=== PATIENT | male | born 1965 | race Two or more races ===

== ENCOUNTER 2018-01-31 16:32 | Inpatient (IN) | payer OTHER ==
--- NOTE | 2018-01-31 16:47 | PDOC ---
Rapid Medical Evaluation Chief Complaint: Wound Time Seen by Provider: 01/31/18 16:41 Medical Evaluation: Allergies Allergy/AdvReac Type Severity Reaction Status Date / Time No Known Allergies Allergy Verified 01/31/18 16:40 01/31/18 16:41 I have performed a brief in-person evaluation of this patient. Dr Hackett- sent for ER admission The patient presents with a chief complaint of: s/p right foot infections from bed ulcer, early December had wound debridement of right heel at [facility]. Pertinent physical exam findings: swelling and ulceration to right heel, I have ordered the following: CBC, CMP, Blood Culture, The patient will proceed to the ED for further evaluation.
[2018-01-31 17:29] LABS: BASO % 1.3 % (0-2.0); EOS % 1.6 % (0-4.5); HEMATOCRIT 36.7 % (35.4-49); HEMOGLOBIN 11.8 GM/dL (11.7-16.9); LYMPH % 28.3 % (8-40); MCH 29.4 pg (25.7-33.7); MEAN CELL VOLUME 91.9 fl (80-96); MEAN PLT VOLUME 8.7 fl (7.5-11.1); MONO % 11.2 % (3.8-10.2); NEUT % 57.6 % (42.8-82.8); PLATELET COUNT 159 K/MM3 (134-434); RDW 15.2 % (11.9-15.9); WHITE BLOOD COUNT 6.1 K/mm3 (4.0-10.0)
--- NOTE | 2018-01-31 17:50 | PDOC ---
History of Present Illness - General Chief Complaint: Wound Stated Complaint: PAIN Time Seen by Provider: 01/31/18 16:41 - History of Present Illness Initial Comments: 01/31/18 18:24 The patient is a 52 year old male with a history of DM, ESRD on dialysis, diabetic foot ulcers who presents for evaluation of a diabetic foot wound. The patient notes a worsening diabetic foot ulcer to his right heel over the past 6 weeks. He states that he was admitted at on outside hospital for 2 weeks for iv antibiotics and noted worsening symptoms after his discharged. He was being evaluated by our wound clinic and was referred to the ER for admission given worsening symptoms. The patient otherwise denies fevers, chills, SOB, chest pain, nausea, vomiting, abdominal pain, or changes with urination or bowel movements. Past History - Past Medical History Allergies/Adverse Reactions: Allergies Allergy/AdvReac Type Severity Reaction Status Date / Time vancomycin Allergy Verified 01/31/18 16:54 Home Medications: Ambulatory Orders NK [No Known Home Medication] 01/31/18 COPD: No Diabetes: Yes (no meds) Dialysis: Yes (ESRD) Other medical history: wheel chair bound, right foot ulcer - Immunization History Immunization Up to Date: Yes - Suicide/Smoking/Psychosocial Hx Smoking History: Never smoked Hx Alcohol Use: No Drug/Substance Use Hx: No Review of Systems - Review of Systems Comments:: 01/31/18 18:26 Constitutional: No fevers, chills, fatigue, malaise HEENT: No Rhinorrhea, nasal congestion, visual changes Cardiovascular: No chest pain, syncope, palpitations, lightheadedness Respiratory: No Cough, SOB, Hemoptysis, Gastrointestinal: No Abdominal pain, Nausea, Vomiting, Constipation, Diarrhea, Melena Genitourinary: No Dysuria, Frequency, Urgency, Hesitancy, Hematuria, Flank pain Musculoskeletal: No Myalgia, arthralgia Skin: Diabetic Foot Ulcer to the Right Heel. No rashes, itching, bruising, pallor Neurologic: No Headache, Dizziness, Numbness, Weakness, or Tingling Psychiatric: No Hallucinations. No SI or HI *Physical Exam - Vital Signs Last Vital Signs Temp Pulse Resp BP Pulse Ox 98.4 F 97 H 20 113/47 99 01/31/18 16:41 01/31/18 16:41 01/31/18 16:41 01/31/18 16:41 01/31/18 16:41 - Physical Exam Comments: 01/31/18 18:27 General Appearance: Nourished. No Apparent Distress HEENT: EOMI, JAMI. No Pharyngeal Erythema, Tonsillar Exudate, Tonsillar Erythema Neck: No Cervical Lymphadenopathy Respiratory/Chest: Lungs Clear, Normal Breath Sounds. No Crackles, Rales, Rhonchi, Wheezing Cardiovascular: Regular Rhythm, Regular Rate. No Murmur, Gallops, Rubs Gastrointestinal/Abdominal: Normal Bowel Sounds, Soft. No Guarding, Rebound, Tenderness Musculoskeletal: No CVA Tenderness Extremity: 5cm x 5cm Diabetic foot ulcer to the right heel with foul smelling purulent drainage with surround edema and tenderness to palpation. Normal Capillary Refill Integumentary: Normal Color, Dry, Warm Neurologic: Fully Oriented, Alert, Normal Mood/Affect, Normal Response, ED Treatment Course - LABORATORY CBC & Chemistry Diagram: 01/31/18 17:19 01/31/18 17:19 - ADDITIONAL ORDERS Additional order review: 01/31/18 17:19 RBC 4.00 MCV 91.9 MCHC 32.0 RDW 15.2 MPV 8.7 Neutrophils % 57.6 Lymphocytes % 28.3 Monocytes % 11.2 H Eosinophils % 1.6 Basophils % 1.3 Medical Decision Making - Medical Decision Making 01/31/18 18:29 The patient is a 52 year old male with a history of DM, ESRD on dialysis, diabetic foot ulcers who presents for evaluation of a diabetic foot wound. Differential includes but is not limited to: Osteomylitis, Infected Wound, Cellulitis, Infectious, Metabolic derangement. Given the patient's history and physical exam, we will obtain a cbc, cmp, blood cultures, ekg, plain films to evaluate further. We will consult Dr. Klein, Dr. Villalobos, Dr. Art and begin zosyn here in the ER as the patient has an allergy to vancomycin. The patient will require admission for further management of his symptoms. *DC/Admit/Observation/Transfer Diagnosis at time of Disposition: Diabetic foot ulcer Qualifiers: Diabetic foot ulcer location: heel Diabetes mellitus type: other specified ( including JADON) Laterality: right Non-pressure ulcer stage: unspecified non- pressure ulcer stage Qualified Code(s): E13.621 - Other specified diabetes mellitus with foot ulcer; L97.419 - Non-pressure chronic ulcer of right heel and midfoot with unspecified severity - Discharge Dispostion Condition at time of disposition: Stable Decision to Admit order: Yes - Referrals Referrals: Fam Villalta [Primary Care Provider] - - Patient Instructions - Post Discharge Activity
[2018-01-31 18:08] LABS: ALK PHOS 88 U/L (45-117); ANION GAP 11 (8-16); BILIRUBIN,TOTAL 0.6 mg/dL (0.2-1.0); BLOOD UREA NITROGEN 17 mg/dL (7-18); CALCIUM 7.6 mg/dL (8.5-10.1); CHLORIDE 97 mmol/L (98-107); CO2 26 mmol/L (21-32); GLUCOSE,RANDOM 74 mg/dL (74-106); POTASSIUM 3.3 mmol/L (3.5-5.1); SGPT/ALT 11 U/L (12-78); SODIUM 134 mmol/L (136-145); TOT PROT 7.1 g/dl (6.4-8.2)
[2018-01-31 18:09] LABS: CREATININE 8.4 mg/dL (0.7-1.3); SGOT/AST 12 U/L (15-37)
[2018-01-31] MEDS ORDERED: PIPERACILLIN/TAZOB 4.5 GM 4.5 GM in DEXTROSE 5%-WATER 100 ML IVPB ONE (18:28)
[2018-01-31] MEDS ORDERED: PIPERACILLIN/TAZOB 3.375 GM 3.375 GM/50 ML BAG IVPB ONE (18:37)
--- NOTE | 2018-01-31 18:58 | PDOC ---
Attending Attestation - HPI HPI: 01/31/18 18:58 The patient is a 52 year old male, with a significant PMH of diabetes mellitus, ESRD on dialysis, diabetic foot ulcers, who presents to the emergency department for evaluation of right foot wound sent in from Wound Care. The patient states he has had a worsening diabetic foot ulcer on the right heal for approx 6 weeks. The patient also states he was admitted to an outside hospital 2 weeks ago for the right foot wound and received IV antibiotics with minimal relief. The patient states he was being evaluated by Wound Care earlier today which advised the patient to come to the ED for admission. The patient denies chest pain, shortness of breath, headache and dizziness. Denies fever, chills, nausea, vomit, diarrhea and constipation. Denies dysuria, frequency, urgency and hematuria. Allergies: vancomycin Documentation prepared by John Kaur, acting as healthcare or medical for Doreen Gracia MD. <John Kaur - Last Filed: 01/31/18 18:58> - Resident Resident Name: Jason Max - ED Attending Attestation I have performed the following: I have examined & evaluated the patient, The case was reviewed & discussed with the resident, I agree w/resident's findings & plan, Exceptions are as noted - Physicial Exam PE: 01/31/18 18:55 awake alert lungs clear bilaterally heart rrr no mrg. abd soft nt nd. ext wwp . right heel ulcer foul smelling. drainage, purulene 5 x 5 cm. 2+ dp/ pt. neuro awake alert - Medical Decision Making 01/31/18 18:57 differential heel ulcer, osteo sepsis. plan labs abx xray heel cxr ekg. admit for iv antiobiotoics <Doreen Gracia - Last Filed: 01/31/18 19:11> Heart Score/ECG Review #1 General ECG Interpretation: Sinus Rhythm, Normal Rate (90), Normal Intervals, No acute ischemic changes <Doreen Gracia - Last Filed: 01/31/18 19:11>
[2018-01-31] MEDS ORDERED: CLINDAMYCIN 600MG PREMIX IVPB 600 MG/50 ML BAG IVPB ONE ×2 (19:05→19:41)
--- NOTE | 2018-01-31 19:21 | CON.ID ---
Consult - Alcohol/Substance Use Hx Alcohol Use: No - Smoking History Smoking history: Never smoked Home Medications - Allergies Allergies/Adverse Reactions: Allergies Allergy/AdvReac Type Severity Reaction Status Date / Time vancomycin Allergy Verified 01/31/18 16:54 - Home Medications Home Medications: Ambulatory Orders NK [No Known Home Medication] 01/31/18 Physical Exam Vital Signs: Vital Signs Temperature 98.4 F 01/31/18 16:41 Pulse Rate 97 H 01/31/18 16:41 Respiratory Rate 20 01/31/18 16:41 Blood Pressure 113/47 01/31/18 16:41 O2 Sat by Pulse Oximetry (%) 99 01/31/18 16:41 Labs: CBC, BMP 01/31/18 17:19 01/31/18 17:19
--- NOTE | 2018-01-31 19:56 | PN ---
Teaching Attending Note Name of Resident: Noam Linder ATTENDING PHYSICIAN STATEMENT I saw and evaluated the patient. I reviewed the resident's note and discussed the case with the resident. I agree with the resident's findings and plan as documented. SUBJECTIVE: The patient is a 52 year old man, with a significant PMH of diabetes mellitus, depression, vancomycin allergy, wheelchair dependence, ESRD on hemodialysis for 3 years, right diabetic foot ulcers, and fecal incontinence who presents to the emergency department for evaluation of right foot wound sent in from Wound Care. The patient states he has had a worsening diabetic foot ulcer on the right heal for about 6 weeks. The patient also states he was admitted to [facility] 2 weeks ago for the right foot wound and received IV antibiotics with minimal relief. The patient states he was being evaluated by Wound Care earlier today which advised the patient to come to the ED for admission. He has peeling of skin on his left foot requiring dressing. OBJECTIVE: Alert, but withdrawn and sad. Vital Signs Period Temp Pulse Resp BP Sys/Gutierrez Pulse Ox Last 24 Hr 98.4 F 97 20 113/47 99 HEENT: No Jaundice, eye redness or discharge, PERRLA, EOMI. Normocephalic, atraumatic. External ears are normal and hearing is grossly intact. No nasal discharge. Neck: Supple, nontender. No palpable adenopathy or thyromegaly. No JVD Chest: Good effort. Clear to auscultation and percussion. Heart: Regular. No S3, rub or murmur Abdomen: Not distended, soft, nontender and no HSM. No rebound or guarding. Normoactive bowel sounds. Ext: Right heel ulcer with surrounding erythema, but no tenderness. Peeling of skin on left foot. Left forearm AV fistula with good thrill and bruit. Reduced peripheral pulses. No leg edema. Skin: Warm and dry. No petechiae, rash or ecchymosis. Neuro: Alert. Oriented x3. Sad mood. No suicidal ideation. CN 2-12 grossly intact. Sensation grossly intact in all four extremities and DTR are symmetric. Home Medications Medication Instructions Recorded NK [No Known Home Medication] 01/31/18 Abnormal Lab Results 01/31/18 01/31/18 17:19 17:19 Monocytes % 11.2 H Sodium 134 L Potassium 3.3 L Chloride 97 L Creatinine 8.4 H* Calcium 7.6 L AST 12 L ALT 11 L Albumin 3.0 L ASSESSMENT AND PLAN: 1. Nonhealing diabetic right foot ulcer - Will admit as an inpatient and treat with IV clindamycin and zosyn pending wound cultures. Get MRI to rule out osteomyelitis and get PVR as well as Vascular surgery and Podiatry consults. Continue daily wound care. 2. ESRD - Continue thrice weekly hemodialysis and consult nephrology. 3. Hypokalemia - Has poor appetite. May need dietary supplements an ensure adequate dietary protein intake. 4. Depression - provide generous emotional support, restart Zoloft 50 mg po q HS and consult psychiatry. Consider bedside PT in view of wheelchair use. 5. DVT prophylaxis - Heparin 5000u sq tid 6. Advance directives - Full code
--- NOTE | 2018-01-31 20:55 | HP ---
CHIEF COMPLAINT: Worsening foot ulcer PCP: Dr. Fam Villalta (PCP) Dr. Andrea Terrazas (registered nursing professor) HISTORY OF PRESENT ILLNESS: The patient is a 52 yo m w/ PMH DM, ESRD on HD (MWF) who was sent to the ED from the wound care clinic for evaluation of a worsening foot ulcer. The patient states that over the past 6 weeks, he has had worsening right heel ulcer and right leg redness. (ulcer had been present prior to 6 weeks ago and started as a bed sore sustained during a hospitalization for depression) He was recently admitted to [facility] 6 weeks ago, where is underwent debridement of this same ulcer. He was treated with IV ABX for 2 weeks and discharged to a rehab facility for the past 3 weeks. After his discharge 6 days ago, the patient endorses worsening "discomfort and redness" in the right foot, prompting his registered nursing professor, Dr. Terrazas, to send him to the wound care clinic for evaluation. ER course was notable for: (1) Blood culture, wound culture (2) Clindamycin 600mg, Zosyn 3.375g (3) CXR wnl, foot xr showing no evidence of osteo and possible foreign body Recent Travel: none PAST MEDICAL HISTORY: Depression s/p hospitalization DM (dx @ 22 yo, not on medications) PAST SURGICAL HISTORY: Debridement of right foot ulcer 6 weeks ago Social History: Smoking: never smoker Alcohol: socially Drugs: occasional marijuana use Family History: Diabetes in patient's mother Allergies vancomycin Allergy (Verified 01/31/18 16:54) HOME MEDICATIONS: Home Medications Medication Instructions Recorded NK [No Known Home Medication] 01/31/18 REVIEW OF SYSTEMS CONSTITUTIONAL: Absent: fever, chills, diaphoresis, generalized weakness, malaise HEENT: Absent: rhinorrhea, nasal congestion, throat pain, throat swelling, difficulty swallowing, mouth swelling, ear pain, eye pain, visual changes CARDIOVASCULAR: Absent: chest pain, syncope, palpitations, irregular heart rate, lightheadedness , peripheral edema RESPIRATORY: Absent: cough, shortness of breath, dyspnea with exertion, orthopnea, wheezing, stridor, hemoptysis GASTROINTESTINAL: Absent: abdominal pain, abdominal distension, nausea, vomiting, diarrhea, constipation, melena, hematochezia GENITOURINARY: Absent: dysuria, frequency, urgency, hesitancy, hematuria, flank pain, genital pain MUSCULOSKELETAL: Absent: myalgia, arthralgia, joint swelling, back pain, neck pain SKIN: Absent: rash, itching, pallor HEMATOLOGIC/IMMUNOLOGIC: Absent: easy bleeding, easy bruising, lymphadenopathy, frequent infections ENDOCRINE: Absent: unexplained weight gain, unexplained weight loss, heat intolerance, cold intolerance NEUROLOGIC: Absent: headache, focal weakness or paresthesias, dizziness, unsteady gait, seizure, mental status changes, bladder or bowel incontinence PSYCHIATRIC: Absent: anxiety, depression, suicidal or homicidal ideation, hallucinations. PHYSICAL EXAMINATION Vital Signs - 24 hr 01/31/18 16:41 Temperature 98.4 F Pulse Rate 97 H Respiratory 20 Rate Blood Pressure 113/47 O2 Sat by Pulse 99 Oximetry (%) GENERAL: Awake, alert, and fully oriented, in no acute distress. HEAD: Normal with no signs of trauma. EYES: Pupils equal, round and reactive to light, extraocular movements intact, sclera anicteric, conjunctiva clear. No lid lag. EARS, NOSE, THROAT: oropharynx clear without exudates. Moist mucous membranes. NECK: Normal range of motion, supple without lymphadenopathy, JVD, or masses. LUNGS: Breath sounds equal, clear to auscultation bilaterally. No wheezes, and no crackles. No accessory muscle use. HEART: Regular rate and rhythm, normal S1 and S2 without murmur, rub or gallop. ABDOMEN: Soft, nontender, not distended, normoactive bowel sounds, no guarding, no rebound, no masses. No hepatomegaly or splenomegaly. MUSCULOSKELETAL: Normal range of motion at all joints. No bony deformities or tenderness. No CVA tenderness LOWER EXTREMITIES: 2+ pulses, warm, well-perfused. No calf tenderness. No peripheral edema. There is erythema and warmth over his right lower extremity. both feet are wrapped in gauze. Dressings are clean and dry. Patient refused to unwrap either of his feet for inspection. NEUROLOGICAL: Cranial nerves II-X intact. Normal speech. PSYCHIATRIC: Cooperative. Good eye contact. Appropriate mood and affect. SKIN: Warm, dry, normal turgor, no rashes or lesions noted, normal capillary refill. Laboratory Results - last 24 hr 01/31/18 01/31/18 17:19 17:19 WBC 6.1 RBC 4.00 Hgb 11.8 Hct 36.7 MCV 91.9 MCH 29.4 MCHC 32.0 RDW 15.2 Plt Count 159 MPV 8.7 Absolute Neuts (auto) 3.5 Neutrophils % 57.6 Lymphocytes % 28.3 Monocytes % 11.2 H Eosinophils % 1.6 Basophils % 1.3 Nucleated RBC % 0 Sodium 134 L Potassium 3.3 L Chloride 97 L Carbon Dioxide 26 Anion Gap 11 BUN 17 Creatinine 8.4 H* Creat Clearance w eGFR 6.78 Random Glucose 74 Calcium 7.6 L Total Bilirubin 0.6 AST 12 L ALT 11 L Alkaline Phosphatase 88 Total Protein 7.1 Albumin 3.0 L ASSESSMENT/PLAN: The patient is a 52 yo m w/ PMH DM, ESRD on HD (MWF) who was sent to the ED from the wound care clinic for evaluation of a worsening foot ulcer. #infected DM foot ulcer -s/p Clindamycin 600mg and Zosyn 4.5 g in ed -will c/w clinda 600mg IV Q8h -given patient's ESRD and high dose on zosyn given in ED, will hold off on continued doses of zosyn until the AM. -Podiatry consult -vascular surgery consult -CLAUDY/PVR to eval for PVD -MRI Rt foot r/o osteo -A1C in AM #History of depression, not on medications -was previously on zoloft, patient stopped taking it without MD instruction - psych hospital admit in the past -psych consult #dispo -admit med surg Visit type - Emergency Visit Emergency Visit: Yes ED Registration Date: 01/31/18 Care time: The patient presented to the Emergency Department on the above date and was hospitalized for further evaluation of their emergent condition. - New Patient This patient is new to me today: Yes Date on this admission: 02/01/18 - Critical Care Critical Care patient: No Hospitalist Screening - Colonoscopy Questionnaire Colonoscopy Questionnaire: Colonoscopy Questionnaire - Patient: 50 - 75 years old and never had a screening colonoscopy: Unknown History of colon or rectal polyps, or CA: Unknown History of IBD, Crohn's disease or UC: Unknown History of abdominal radiation therapy as a child: Unknown - Relative: 1 with colon or rectal CA, or polyps at age 60 or younger: Unknown Colon or rectal CA diagnosed at age 45 or younger: Unknown Multiple relatives with colon or rectal CA: Unknown - Outcome: Screening Result: Negative Screen
[2018-02-01] MEDS: HEPARIN NA (PORCINE) 5,000 UNITS/ML 1ML VIAL SQ SCH ×2 (03:20→11:28)
[2018-02-01] MEDS: CLINDAMYCIN 600MG PREMIX IVPB 600 MG/50 ML BAG IVPB SCH ×3 (03:20→17:57)
[2018-02-01 06:47] LABS: BASO % 0.3 % (0-2.0); EOS % 0.3 % (0-4.5); HEMOGLOBIN 11.9 GM/dL (11.7-16.9); LYMPH % 13.8 % (8-40); MCH 29.5 pg (25.7-33.7); MCHC 32.1 g/dl (32.0-35.9); MEAN CELL VOLUME 91.8 fl (80-96); MEAN PLT VOLUME 8.9 fl (7.5-11.1); MONO % 6.8 % (3.8-10.2); NEUT % 78.8 % (42.8-82.8); PLATELET COUNT 133 K/MM3 (134-434); RBC 4.03 M/mm3 (4.00-5.60); RDW 15.4 % (11.9-15.9); WHITE BLOOD COUNT 10.1 K/mm3 (4.0-10.0)
[2018-02-01 06:48] LABS: ALBUMIN 2.6 g/dl (3.4-5.0); ANION GAP 13 (8-16); BLOOD UREA NITROGEN 20 mg/dL (7-18); CALCIUM 7.4 mg/dL (8.5-10.1); CHLORIDE 97 mmol/L (98-107); CO2 24 mmol/L (21-32); GLUCOSE,RANDOM 68 mg/dL (74-106); PHOSPHOROUS 4.5 mg/dL (2.5-4.9); POTASSIUM 3.4 mmol/L (3.5-5.1); SGOT/AST 9 U/L (15-37); SGPT/ALT 10 U/L (12-78); SODIUM 134 mmol/L (136-145)
[2018-02-01 06:50] LABS: ALK PHOS 80 U/L (45-117); BILIRUBIN,TOTAL 0.9 mg/dL (0.2-1.0); TOT PROT 6.1 g/dl (6.4-8.2)
[2018-02-01 06:56] LABS: CREATININE 9.1 mg/dL (0.7-1.3)
[2018-02-01] MEDS: INSULIN SLIDING SCALE (NOVOLOG) 1 VIAL SQ SCH ×4 (07:06→22:25)
--- NOTE | 2018-02-01 08:44 | PN ---
Teaching Attending Note Name of Resident: Vianca Da Silva ATTENDING PHYSICIAN STATEMENT I saw and evaluated the patient. I reviewed the resident's note and discussed the case with the resident. I agree with the resident's findings and plan as documented with exceptions below. SUBJECTIVE: Patient seen and examined. feeling dizzy, no other symptoms, refusing leg exam unless by a 'leg surgeon'. OBJECTIVE: Vital Signs Period Temp Pulse Resp BP Sys/Gutierrez Pulse Ox Last 24 Hr 97.8 F-98.4 F 95-97 20-20 90-113/46-47 99 Intake & Output 01/29/18 01/30/18 01/31/18 02/01/18 23:59 23:59 23:59 23:59 Weight 182 lb General; dizzy but awake and responsive in bed Extremities: bilteral feet dressing, refusing exam currently, swelling erythema and warm mid 1/3rd LE bilateral R>L Chest: CTAB, no rales or wheezing Abdomen: soft, NT Home Medications Medication Instructions Recorded NK [No Known Home Medication] 01/31/18 Active Medications Heparin Sodium (Porcine) (Heparin -) 5,000 unit SQ Q8H-IV IRVIN Last Admin: 02/01/18 03:20 Dose: 5,000 unit Clindamycin Phosphate (Cleocin 600 Mg Premix Ivpb -) 600 mg in 50 mls @ 100 mls /hr IVPB Q8H-IV IRVIN; Protocol Last Admin: 02/01/18 03:20 Dose: 100 mls/hr Insulin Aspart (Novolog Vial Sliding Scale -) 0 vial SQ ACHS IRVIN; Protocol Last Admin: 02/01/18 07:06 Dose: Not Given Abnormal Lab Results 01/31/18 01/31/18 02/01/18 17:19 17:19 06:00 WBC 10.1 H D Plt Count 133 L Monocytes % 11.2 H Sodium 134 L Potassium 3.3 L Chloride 97 L BUN Creatinine 8.4 H* Random Glucose Calcium 7.6 L AST 12 L ALT 11 L Total Protein Albumin 3.0 L 02/01/18 06:00 WBC Plt Count Monocytes % Sodium 134 L Potassium 3.4 L Chloride 97 L BUN 20 H Creatinine 9.1 H* Random Glucose 68 L Calcium 7.4 L AST 9 L D ALT 10 L Total Protein 6.1 L Albumin 2.6 L Xray right foot - foreign body Duplex RLE neg for DVT ASSESSMENT AND PLAN: 52 yom with PMHx of diabetes mellitus, depression, vancomycin allergy, wheelchair dependence, ESRD on hemodialysis for 3 years, right diabetic foot ulcers, and fecal incontinence admitted with non healing right foot diabetic ulcer with cellulitis -Non healing right foot diabetic ulcer with cellulitis, r/o abscess/ osteomyelitis now with septic shock -ESRD on HD -Diabetes Mellitus Plan: zosyn renal dosing, clindamycin day 1, podiatry/vascular surgery/ID input noted. persistently hypotensive despite fluid challenge. Low threshold for pressors given ESRD on HD. Discussed with Dr. Gabriel, patient accepted for ICU. MRI LE when hemodynamics stable. Xray with possible foreign body. PVR. ISS,patient denies being on homd meds. Blood/wound cx. DVTPPx with heparin Dispo to ICU, plan discussed with Dr. Gabriel, Dr. Frey, Dr. Omer and nursing. total critical care time spent 35 min.
--- NOTE | 2018-02-01 09:47 | CONSULT ---
Consult - text type - Consultation Consultation Note: Pt seen in bed. VSS. Seeing for b/l wounds. Wants to save his feet at all costs. +infected wounds b/l, heels, awaiting culture results, +mal odor right, + localized cellulitis r/o om r/o pvd r/o dm Grade 2-3 wounds b/l feet Awaiting results of MRI, Culture, Vascular and ID. B/l santyl dressing changes to heels. Heel pads b/l. Will follow.
[2018-02-01] MEDS ORDERED: COLLAGENASE CLOSTRIDIUM HIST. 30 GRAMS TUBE TP SCH (10:00)
--- NOTE | 2018-02-01 10:34 | EKG ---
Test Reason : Blood Pressure : / mmHG Vent. Rate : 090 BPM Atrial Rate : 090 BPM P-R Int : 164 ms QRS Dur : 084 ms QT Int : 424 ms P-R-T Axes : 040 015 060 degrees QTc Int : 518 ms NORMAL SINUS RHYTHM SEPTAL INFARCT , AGE UNDETERMINED PROLONGED QT ABNORMAL ECG NO PREVIOUS ECGS AVAILABLE Confirmed by SOHAN CHAVARRIA MD ([id number]) on 02/01/2018 10:33:49 AM Referred By: Confirmed By:SOHAN CHAVARRIA MD
[2018-02-01] MEDS ORDERED: SODIUM CHLORIDE 250 ML IV STA ×2 (10:36→12:03)
[2018-02-01] MEDS ORDERED: PIPERACILLIN/TAZOB 2.25 GM 2.25 GM in DEXTROSE 5%-WATER - 50 ML IVPB ONE (10:39)
--- NOTE | 2018-02-01 11:46 | CONSULT ---
Consult Consult Specialty:: Nephrology Reason for Consultation:: ESRD - History of Present Illness Chief Complaint: sent in for foot ulcer History of Present Illness: Pt is a 52 year old male with pmhx of ESRD and DM who was sent to the ER for evaluation. He says he has had the right foot ulcer for about 2 months. He did get abx in an outside facility. I was called to evaluate him as he is on HD. His last dialysis was on Tuesday. He denies shortness of breath. He denies fevers or chills. He goes to [facility] HD. - History Source History Provided By: Patient, Medical Record - Past Medical History Renal/: Yes: Renal Inusuff, Hemodialysis Heme/Onc: Yes: Anemia Endocrine: Yes: Diabetes Mellitus - Past Surgical History Past Surgical History: Yes: AV Fistula/Graft - Alcohol/Substance Use Hx Alcohol Use: No - Smoking History Smoking history: Never smoked Have you smoked in the past 12 months: No Home Medications - Allergies Allergies/Adverse Reactions: Allergies Allergy/AdvReac Type Severity Reaction Status Date / Time vancomycin Allergy Verified 01/31/18 16:54 - Home Medications Home Medications: Ambulatory Orders NK [No Known Home Medication] 01/31/18 Family Disease History - Family Disease History Family History: Denies Review of Systems - Review of Systems Constitutional: reports: No Symptoms Eyes: reports: No Symptoms HENT: reports: No Symptoms Neck: reports: No Symptoms Cardiovascular: reports: No Symptoms Respiratory: reports: No Symptoms Gastrointestinal: reports: No Symptoms Genitourinary: reports: No Symptoms Musculoskeletal: reports: Other (right foot ulcer) Neurological: reports: No Symptoms Hematology/Lymphatic: reports: No Symptoms Psychiatric: reports: No Symptoms Physical Exam Vital Signs: Vital Signs Temperature 97.8 F 01/31/18 22:08 Pulse Rate 50 L 02/01/18 11:35 Respiratory Rate 16 02/01/18 08:58 Blood Pressure 77/38 02/01/18 11:35 O2 Sat by Pulse Oximetry (%) 98 02/01/18 08:58 Constitutional: Yes: Calm Eyes: Yes: Conjunctiva Clear HENT: Yes: Atraumatic Cardiovascular: Yes: S1, S2 Respiratory: Yes: CTA Bilaterally Gastrointestinal: Yes: Soft Renal/: Yes: WNL Extremities: Yes: WNL, Other (fistula with thrill and bruit) Edema: No Neurological: Yes: Oriented Psychiatric: Yes: Oriented Labs: CBC, BMP 02/01/18 06:00 02/01/18 06:00 Laboratory Tests 01/31/18 01/31/18 02/01/18 17:19 17:19 06:00 WBC 6.1 10.1 H D Sodium Potassium 3.3 L Chloride 97 L Carbon Dioxide 26 BUN Creatinine 8.4 H* 02/01/18 06:00 WBC Sodium 134 L Potassium 3.4 L Chloride 97 L Carbon Dioxide BUN 20 H Creatinine 9.1 H* Imaging - Results Chest X-ray: Report Reviewed Problem List - Problems (1) ESRD (end stage renal disease) Code(s): N18.6 - END STAGE RENAL DISEASE (2) Diabetic foot ulcer Code(s): E11.621 - TYPE 2 DIABETES MELLITUS WITH FOOT ULCER; L97.509 - NON- PRESSURE CHRONIC ULCER OTH PRT UNSP FOOT W UNSP SEVERITY Qualifiers: Diabetic foot ulcer location: heel Diabetes mellitus type: other specified (including JADON) Laterality: right Non-pressure ulcer stage: unspecified non -pressure ulcer stage Qualified Code(s): E13.621 - Other specified diabetes mellitus with foot ulcer; L97.419 - Non-pressure chronic ulcer of right heel and midfoot with unspecified severity Assessment/Plan Current Medications Generic Name Dose Route Start Last Admin Trade Name Freq PRN Reason Stop Dose Admin Collagenase 1 applic 02/01/18 10:00 Santyl - TP DAILY IRVIN Heparin Sodium (Porcine) 5,000 unit 02/01/18 02:00 02/01/18 11:28 Heparin - SQ 5,000 unit Q8H-IV IRVIN Administration Clindamycin Phosphate 600 mg in 50 mls @ 100 mls/hr 02/01/18 03:00 02/01/18 11:28 Cleocin 600 Mg Premix Ivpb - IVPB 100 mls/hr Q8H-IV IRVIN Administration Protocol Insulin Aspart 0 vial 02/01/18 07:00 02/01/18 11:40 Novolog Vial Sliding Scale - SQ Not Given ACHS IRVIN Protocol Impression 1. ESRD 2. anemia 3. DFU 4. DM Plan - called HD unit, [place] [phone] - HD AVF 4:15 abf 450 heparin 6000 with 1000 q hour, 2 k bath - will arrange for HD today, unable to do 4 hrs secondary to staffing, will arrange for 3 hours - will use 3 k bath as potassium is low, I did relay the K value to his unit - podiatry follow up - ID follow up - pt does not appears to have much volume on him - pt has a dry weight of 102.5 kg in hd center however he is 82.7 kg here - wound care - will follow Dr Frey
[2018-02-01] MEDS ORDERED: SODIUM CHLORIDE 250 ML IV PRN (11:52)
[2018-02-01] MEDS ORDERED: HEPARIN NA (PORCINE) 5,000 UNITS/ML 1ML VIAL IVPUSH ONE ×2 (11:52→16:14)
[2018-02-01] MEDS ORDERED: DEXTROSE 5%-WATER - 50 ML IVPB ONE (11:54)
[2018-02-01] MEDS ORDERED: PIPERACILLIN/TAZOBACTAM 2.25 GM VIAL IVPB ONE (11:54)
[2018-02-01] MEDS ORDERED: SODIUM CHLORIDE 500 ML IV STA (12:07)
--- NOTE | 2018-02-01 12:22 | PN ---
Progress Note (short form) - Note Progress Note: VASCULAR SURGERY - Ki Villalobos Called to evaluate 52 yo male admitted with bilat heel infection and rle cellulitis. Podiarty Consult note appreciated. Pmhc includes ESRD, DM, peripheral neuropathy. Resting in position of comfort. Last Vital Signs Temp Pulse Resp BP Pulse Ox 97.8 F 50 L 16 77/38 98 01/31/18 22:08 02/01/18 11:35 02/01/18 08:58 02/01/18 11:35 02/01/18 08:58 CBC, BMP 02/01/18 06:00 02/01/18 06:00 Foot xray: no evidence of OM. ? foreign body near calcaneous GEN: nad LE: bilat heels infected. + foul odor. NO discharge. No bogginess or induration. Localized erythema/cellulitis. + palpable DP/PT bilat. Warm bilat. No rest pain. Problem List - Problems (1) Diabetic foot ulcer Assessment/Plan: Patient's wounds are currently being managed by Podiatry. No evidence of vascular disease. No Vascular intervention needed. f/u MRI f/u wound culture Offload pressure sensitive areas Cont medical management Above discussed with Dr. Villalobos and agrees HD PRN Code(s): E11.621 - TYPE 2 DIABETES MELLITUS WITH FOOT ULCER; L97.509 - NON- PRESSURE CHRONIC ULCER OTH PRT UNSP FOOT W UNSP SEVERITY Qualifiers: Diabetic foot ulcer location: heel Diabetes mellitus type: other specified (including JADON) Laterality: right Non-pressure ulcer stage: unspecified non -pressure ulcer stage Qualified Code(s): E13.621 - Other specified diabetes mellitus with foot ulcer; L97.419 - Non-pressure chronic ulcer of right heel and midfoot with unspecified severity (2) ESRD (end stage renal disease) Code(s): N18.6 - END STAGE RENAL DISEASE
--- NOTE | 2018-02-01 14:12 | HOSP ---
Subjective - Review of Symptoms Events since last encounter: Informed by RN during round that patient was hypotensive in the low 60s/30s. Pt c/o dizziness. Repeated BP manually confirmed the BP range. Gave 250ml bolus, repeat BP 77/38, 15 mins later repeat 69/34, gave another 500cc bolus and repeat BP was 69/40, HR 98, Sat 98%. Discussed with attending and nephrology, will transfer the patient to ICU due to unresponsiveness to fluid resuscitation , suspecting 2/2 septic shock. Musculoskeletal: Yes: Extremity Pain Neurological: Yes: Other (dizziness) Physical Examination Vital Signs: Vital Signs Temperature 97.8 F 01/31/18 22:08 Pulse Rate 97 H 02/01/18 12:31 Respiratory Rate 16 02/01/18 12:31 Blood Pressure 82/40 02/01/18 12:31 O2 Sat by Pulse Oximetry (%) 98 02/01/18 08:58 Constitutional: Yes: Calm, Other (in trend position) Cardiovascular: Yes: Tachycardia, S1, S2 Respiratory: Yes: Regular, CTA Bilaterally Extremities: Yes: Other (refused extremity exam) Neurological: Yes: Other (dizziess) Labs: CBC, BMP 02/01/18 06:00 02/01/18 06:00 Visit type - Emergency Visit Emergency Visit: No - New Patient This patient is new to me today: Yes Date on this admission: 02/01/18 - Critical Care Critical Care patient: No
[2018-02-01] MEDS: ACETAMINOPHEN 1000 MG/100 ML VIAL (NON FORMULARY) IVPB PRN (16:28)
[2018-02-01] MEDS ORDERED: SODIUM CHLORIDE 1,000 ML IV STA (16:32)
--- NOTE | 2018-02-01 17:00 | PN ---
Physical Exam: SUBJECTIVE: Patient seen and examined. Admitted overnight with diabetic foot, has not been on medication because he thinks he no longer has diabetes, although he reports diabetic neuropathy on both LE and has ESRD likely secondary to DM. Pt refused to have feet examined. Pt had been admitted for psychiatric symptoms in recent past. says he has been wheelchair bound for up to 3 years. OBJECTIVE: Vital Signs Period Temp Pulse Resp BP Sys/Gutierrez Pulse Ox Last 24 Hr 97.8 F-97.8 F 50-97 16-20 69-90/38-46 94-98 Vital Signs Temp 100.2 F H 02/01/18 20:00 Pulse 98 H 02/01/18 20:00 Resp 16 02/01/18 20:00 BP 130/65 02/01/18 20:00 Pulse Ox 98 02/01/18 08:58 Intake & Output 01/31/18 02/01/18 02/01/18 23:59 11:59 23:59 Intake Total 1300 Balance 1300 Weight 82.554 kg 104.5 kg Intake: IV 1000 Normal Saline - 1,000 ml 1000 @ 1000 mls/hr IV ASDIR STA Rx#:[id number] IVPB 300 Other: Voiding Method Diaper Incontinent Bowel Movement Yes: Large soft # Bowel Movements 1 Height 1.88 m Body Mass Index (BMI) 23.3 Weight Measurement Method Stated by Patient Built in [facility] Weight Measurement Method Est/Stated by Patient GENERAL: The patient is awake, alert, and fully oriented, sating well on RA LUNGS: Breath sounds equal, clear to auscultation bilaterally HEART: Regular rate and rhythm, S1, S2 without murmur. ABDOMEN: Soft, nontender, nondistended, normoactive bowel sounds EXTREMITIES: Pt declined examination of feet, including removal of socks. Bilateral feet in antiskid socks, with bilateral dressing R foot appears greater than L NEUROLOGICAL: Cranial nerves II through XII grossly intact. Normal speech, gait not observed. Laboratory Results - last 24 hr 01/31/18 01/31/18 01/31/18 17:19 17:19 23:47 WBC 6.1 RBC 4.00 Hgb 11.8 Hct 36.7 MCV 91.9 MCH 29.4 MCHC 32.0 RDW 15.2 Plt Count 159 MPV 8.7 Absolute Neuts (auto) 3.5 Neutrophils % 57.6 Lymphocytes % 28.3 Monocytes % 11.2 H Eosinophils % 1.6 Basophils % 1.3 Nucleated RBC % 0 Sodium 134 L Potassium 3.3 L Chloride 97 L Carbon Dioxide 26 Anion Gap 11 BUN 17 Creatinine 8.4 H* Creat Clearance w eGFR 6.78 POC Glucometer 74 Random Glucose 74 Hemoglobin A1c % Calcium 7.6 L Phosphorus Magnesium Total Bilirubin 0.6 AST 12 L ALT 11 L Alkaline Phosphatase 88 Total Protein 7.1 Albumin 3.0 L 02/01/18 02/01/18 02/01/18 06:00 06:00 06:00 WBC 10.1 H D RBC 4.03 Hgb 11.9 Hct 37.0 MCV 91.8 MCH 29.5 MCHC 32.1 RDW 15.4 Plt Count 133 L MPV 8.9 Absolute Neuts (auto) 7.9 Neutrophils % 78.8 D Lymphocytes % 13.8 D Monocytes % 6.8 Eosinophils % 0.3 D Basophils % 0.3 Nucleated RBC % 0 Sodium 134 L Potassium 3.4 L Chloride 97 L Carbon Dioxide 24 Anion Gap 13 BUN 20 H Creatinine 9.1 H* Creat Clearance w eGFR 6.19 POC Glucometer Random Glucose 68 L Hemoglobin A1c % 4.1 L Calcium 7.4 L Phosphorus 4.5 Magnesium 2.0 Total Bilirubin 0.9 D AST 9 L D ALT 10 L Alkaline Phosphatase 80 Total Protein 6.1 L Albumin 2.6 L 02/01/18 11:39 WBC RBC Hgb Hct MCV MCH MCHC RDW Plt Count MPV Absolute Neuts (auto) Neutrophils % Lymphocytes % Monocytes % Eosinophils % Basophils % Nucleated RBC % Sodium Potassium Chloride Carbon Dioxide Anion Gap BUN Creatinine Creat Clearance w eGFR POC Glucometer 116 Random Glucose Hemoglobin A1c % Calcium Phosphorus Magnesium Total Bilirubin AST ALT Alkaline Phosphatase Total Protein Albumin Active Medications Generic Name Dose Route Start Last Admin Trade Name Freq PRN Reason Stop Dose Admin Acetaminophen 1,000 mg 02/01/18 15:59 02/01/18 16:28 Ofirmev Injection - IVPB 1,000 mg Q6H PRN Administration FEVER Chlorhexidine Gluconate 1 applic 02/01/18 22:00 Hibiclens For Decolonization - TP HS IRVIN Collagenase 1 applic 02/02/18 10:00 Santyl - TP DAILY IRVIN Clindamycin Phosphate 600 mg in 50 mls @ 100 mls/hr 02/01/18 18:00 Cleocin 600 Mg Premix Ivpb - IVPB Q8H-IV IRVIN Protocol Sodium Chloride 1,000 mls @ 1,000 mls/hr 02/01/18 16:32 Normal Saline - IV 02/01/18 17:31 ASDIR STA Insulin Aspart 1 vial 02/01/18 16:30 Novolog Vial Sliding Scale - SQ ACHS [facility] Protocol Mupirocin 1 applic 02/01/18 22:00 Bactroban Ointment (For Decolonization) - NS 02/06/18 21:59 BID IRVIN Current Medications Acetaminophen (Ofirmev Injection -) 1,000 mg IVPB Q6H PRN PRN Reason: FEVER Last Admin: 02/01/18 16:28 Dose: 1,000 mg Chlorhexidine Gluconate (Hibiclens For Decolonization -) 1 applic TP HS IRVIN Collagenase (Santyl -) 1 applic TP DAILY IRVIN Clindamycin Phosphate (Cleocin 600 Mg Premix Ivpb -) 600 mg in 50 mls @ 100 mls /hr IVPB Q8H-IV IRVIN; Protocol Last Admin: 02/01/18 17:57 Dose: 100 mls/hr Meropenem 500 mg/ Dextrose 100 mls @ 200 mls/hr IVPB Q12H IRVIN Last Admin: 02/01/18 18:47 Dose: 200 mls/hr Norepinephrine Bitartrate 8, (000 mcg/ Dextrose) 500 mls @ 18.75 mls/hr IV TITR IRVIN; Protocol Last Admin: 02/01/18 19:00 Dose: 5 mcg/min, 18.75 mls/hr Insulin Aspart (Novolog Vial Sliding Scale -) 1 vial SQ ACHS [facility]; Protocol Last Admin: 02/01/18 18:00 Dose: 2 units Mupirocin (Bactroban Ointment (For Decolonization) -) 1 applic NS BID IRVIN Stop: 02/06/18 21:59 ASSESSMENT/PLAN: The patient is a 52 yo m w/ PMH DM (non compliant), psychiatric illness requiring admission, ESRD on HD (MWF) who was sent to the ED from the wound care clinic for evaluation of a worsening foot ulcer. #infected DM foot ulcer -s/p Clindamycin 600mg and Zosyn 4.5 g in ed -will c/w clinda 600mg IV Q8h -ID consult- Dr Klein-Meropenem added -Pt reported to have reacted to Vancomycin with redness and generalized skin sloughing -likely TEN. -Podiatry consult- Sent by Dr Terrazas -vascular surgery consult- Dr Villalobos-appreciate recs -MRI Rt foot r/o osteo- will do MRI when more hemodynamically stable -Iv tylenol for pain #Septic shock Pt noted to be increasingly hypotensive despite boluses of N/saline Dialysis was held of Pt was transferred to ICU and started on levophed #DM -A1C -ISS -BGM #History of depression, not on medications -was previously on zoloft, patient stopped taking it without MD instruction -Hx psych hospital admit in the past -psych consult- Dr Aleman #dispo -Continue ICU mx Visit type - Emergency Visit Emergency Visit: Yes ED Registration Date: 01/31/18 Care time: The patient presented to the Emergency Department on the above date and was hospitalized for further evaluation of their emergent condition. - New Patient This patient is new to me today: Yes Date on this admission: 02/01/18 - Critical Care Critical Care patient: Yes Total Critical Care Time (in minutes): 45 Critical Care Statement: The care of this patient involved high complexity decision making to prevent further life threatening deterioration of the patient 's condition and/or to evaluate & treat vital organ system(s) failure or risk of failure. - Discharge Referral Referred to [facility] No
--- NOTE | 2018-02-01 17:00 | CON.PSY ---
Psychiatry Consult Chief Complaint: Patient seen for DEpression. spoke to mD, patient is septic and Hypotensive. - Previous Psychiatric Treatment Outpatient: None Inpatient: None - Previous Substance Abuse Treatment Outpatient: None Inpatient: None - Current Medications Current Medications: Active Medications Acetaminophen (Ofirmev Injection -) 1,000 mg IVPB Q6H PRN PRN Reason: FEVER Last Admin: 02/01/18 16:28 Dose: 1,000 mg Chlorhexidine Gluconate (Hibiclens For Decolonization -) 1 applic TP HS IRVIN Collagenase (Santyl -) 1 applic TP DAILY IRVIN Clindamycin Phosphate (Cleocin 600 Mg Premix Ivpb -) 600 mg in 50 mls @ 100 mls /hr IVPB Q8H-IV IRVIN; Protocol Sodium Chloride (Normal Saline -) 1,000 mls @ 1,000 mls/hr IV ASDIR STA Stop: 02/01/18 17:31 Insulin Aspart (Novolog Vial Sliding Scale -) 1 vial SQ ACHS IRVIN; Protocol Mupirocin (Bactroban Ointment (For Decolonization) -) 1 applic NS BID IRVIN Stop: 02/06/18 21:59 - Allergies Allergies: Allergies Allergy/AdvReac Type Severity Reaction Status Date / Time vancomycin Allergy Verified 01/31/18 16:54 - Current Living Status Usual Living Arrangement: With Significant Other - Current Mental Status Evaluation Appearance: Well Groomed Attitude: Cooperative - Affect Affect: Constrictive Appropriateness: Appropriate to Content - Mood Mood: Euthymic - Speech/Language Expressive: Coherent - Psychomotor Activity Psychomotor Activity: Slowed - Thought Process Thought Process: Intact - Thought Content Hallucinations: Absent Delusions: Absent - Self Perception Self Perception: No Impairment - Cognition Attention: Alert Orientation: Time Memory, Immediate Recall: Intact Memory, Short Term: 3/3 Memory, Remote with Promptin/3 - Concentration Serial Sevens Intact: No Simple Calculations Intact: No - Abstraction Proverb Interpretation: Intact Judgement: Minimally Impaired - Insight Insight: Intact - Impulse Control Impulse Control: Minimally Impaired - Suicidal Ideation Suicidal Ideation: No - Homicidal Ideation Homicidal Ideation: No Assessment/Plan 1) [patient is in acute Sepsis and Hypotensive at this time. will not initiate any psych meds at this time.
--- NOTE | 2018-02-01 17:39 | CON.ID ---
Consult Consult Specialty:: infectious diseases Reason for Consultation:: bilateral cellulitis of the leg - History of Present Illness Chief Complaint: swelling and pain in the legs History of Present Illness: 52 year old male with a history of DM, ESRD on dialysis, diabetic foot ulcers who came to the hospital and was admitted for further treatment of diabetic foot wounds. . The patient notes a worsening diabetic foot ulcer to his right heel over the past 6 weeks. He states that he was admitted at on outside hospital for 2 weeks for iv antibiotics and noted worsening symptoms after his discharged. He was being evaluated by our wound clinic and was referred to the ER for admission given worsening symptoms. The patient otherwise denies fevers, chills , SOB, chest pain, nausea, vomiting, abdominal pain, or changes with urination or bowel movements. patient received clinda and zosyn on admission it seems patient was stable but then turn septic and is currently in icu with fever and hypotensive episodes patient is a dialysis patient currently patient is cold and hypotensive he is refusing for his dressing to be removed and the wound to be looked at this point - History Source History Provided By: Patient, Medical Record Limitations to Obtaining History: Clinical Condition - Past Medical History Renal/: Yes: Renal Inusuff, Hemodialysis Endocrine: Yes: Diabetes Mellitus - Past Surgical History Past Surgical History: Yes: AV Fistula/Graft - Alcohol/Substance Use Hx Alcohol Use: No - Smoking History Smoking history: Never smoked Have you smoked in the past 12 months: No - Social History Usual Living Arrangement: With Significant Other Home Medications - Allergies Allergies/Adverse Reactions: Allergies Allergy/AdvReac Type Severity Reaction Status Date / Time vancomycin Allergy Verified 01/31/18 16:54 - Home Medications Home Medications: Ambulatory Orders NK [No Known Home Medication] 01/31/18 Review of Systems - Review of Systems Constitutional: reports: Fever Eyes: reports: No Symptoms HENT: reports: No Symptoms Neck: reports: No Symptoms Cardiovascular: reports: No Symptoms Respiratory: reports: No Symptoms Gastrointestinal: reports: No Symptoms Genitourinary: reports: No Symptoms Musculoskeletal: reports: Other Integumentary: reports: Erythema, Wound, Other Neurological: reports: No Symptoms Endocrine: reports: No Symptoms Hematology/Lymphatic: reports: No Symptoms Psychiatric: reports: No Symptoms Physical Exam Vital Signs: Vital Signs Temperature 101 F H 02/01/18 17:00 Pulse Rate 91 H 02/01/18 17:00 Respiratory Rate 15 02/01/18 17:00 Blood Pressure 71/50 02/01/18 17:00 O2 Sat by Pulse Oximetry (%) 98 02/01/18 08:58 Constitutional: Yes: Moderate Distress, Obese Eyes: Yes: Conjunctiva Clear HENT: Yes: Atraumatic Neck: Yes: Supple Cardiovascular: Yes: Regular Rate and Rhythm, Other (hypotensive) Respiratory: Yes: Regular, Poor Air Entry Gastrointestinal: Yes: Normal Bowel Sounds, Soft Musculoskeletal: Yes: Other Extremities: Yes: Other Integumentary: Yes: Erythema (bilateral lower legs) Wound/Incision: Yes: Dressing Dry and Intact Neurological: Yes: Alert, Oriented Psychiatric: Yes: Alert, Oriented Labs: CBC, BMP 02/01/18 06:00 02/01/18 06:00 Imaging - Results Chest X-ray: Report Reviewed, Image Reviewed X-ray: Report Reviewed, Image Reviewed Assessment/Plan this patient with non healing diabetic ulcer of the foot in icu with sepsis i am worried he is going towards septic shock patient refusing to alow the wounds to be seen septic shock wound infections fever dm hypotensive plan will start patient on meropenam continue clinda iv fluids patient will need portably pressors rest continue as per icu patient is critical close watch cc time 45 min
--- NOTE | 2018-02-01 17:55 | PN ---
Progress Note (short form) - Note Progress Note: Vascular surgery Pt seen and examined. Left heel unstable ulcer. 3x3 eschar. Right heel wound -- stage 3 with granulation tissue with drainage. Sacral ulcer stage 3 - clean, pink, with depth. Please start santyl to all wounds. Podiatry on case for possible debridments. Pt has bl palpable DP pulses Cont IV antibiotics Ki huerta DO
[2018-02-01] MEDS ORDERED: NOREPINEPHRINE BITARTRATE 4 MG/4 ML ML IV ONE (18:37)
[2018-02-01] MEDS: MEROPENEM 500 MG in DEXTROSE 5%-WATER 100 ML IVPB SCH (18:47)
[2018-02-01] MEDS: NOREPINEPHRINE BITARTRATE 8,000 MCG in DEXTROSE 5%-WATER - 492 ML IV SCH (19:00)
--- NOTE | 2018-02-01 19:05 | PROC ---
Central Line Insertion Indication: Sepsis, Vasopressor Risks and Benefits Explained: Yes Consent on Chart: Yes Central Line: Triple Lumen Catheter Anesthesia: 1% Lidocaine Sterile Technique: Yes Ultrasound Guided Assistance: Yes Position: Right Femoral Post Insertion: Yes: Chest X-Ray Ordered Sterile Dressing Applied: Yes
--- NOTE | 2018-02-01 21:19 | CONSULT ---
Consult Consult Specialty:: Pulm/CCM Reason for Consultation:: Sepsis - History of Present Illness History of Present Illness: 52 yom with PMHx of DM, ESRD on iHD, diabetic foot ulcers with recent hospitalization for infected Lt foot ulcer who prented to ED from wound clinic with signs of worsening infection. He was started on empiric zosyn and transferred to the floor for management. Seen by ID consult. On the floor he became hypotensive with BP 60-70's/40-50 refractory to 1L fluid bolus. He was transferred to ICU for management of sepsis/septic shock. In ICU central line placed in Rt fem. Levo started 5mcg/min for MAP>60. Pt remained A+Ox3 and conversant. C/o generalized skin burning m/l d/t zosyn, switch to meropenem and clindamycin. - History Source History Provided By: Medical Record - Past Medical History Renal/: Yes: Renal Inusuff, Hemodialysis Endocrine: Yes: Diabetes Mellitus - Past Surgical History Past Surgical History: Yes: AV Fistula/Graft - Alcohol/Substance Use Hx Alcohol Use: No - Smoking History Smoking history: Never smoked Have you smoked in the past 12 months: No - Social History Usual Living Arrangement: With Significant Other Home Medications - Allergies Allergies/Adverse Reactions: Allergies Allergy/AdvReac Type Severity Reaction Status Date / Time vancomycin Allergy Verified 01/31/18 16:54 - Home Medications Home Medications: Ambulatory Orders NK [No Known Home Medication] 01/31/18 Review of Systems - Review of Systems Eyes: reports: No Symptoms Neck: reports: No Symptoms Cardiovascular: reports: No Symptoms Respiratory: reports: No Symptoms Gastrointestinal: reports: No Symptoms Genitourinary: reports: No Symptoms Integumentary: reports: Erythema Neurological: reports: Parasthesia, Weakness Hematology/Lymphatic: reports: No Symptoms Psychiatric: reports: No Symptoms Physical Exam Vital Signs: Vital Signs Temperature 100.2 F H 02/01/18 20:00 Pulse Rate 98 H 02/01/18 20:00 Respiratory Rate 16 02/01/18 20:00 Blood Pressure 130/65 02/01/18 20:00 O2 Sat by Pulse Oximetry (%) 98 02/01/18 20:31 Constitutional: Yes: Well Nourished, No Distress, Calm, Obese Eyes: Yes: WNL HENT: Yes: Atraumatic, Normocephalic Neck: Yes: Supple, Trachea Midline Cardiovascular: Yes: Regular Rate and Rhythm, Tachycardia, S1, S2 Respiratory: Yes: CTA Bilaterally Gastrointestinal: Yes: Soft, Abdomen, Obese Extremities: Yes: Cool Edema: No Peripheral Pulses WNL: Yes Integumentary: Yes: Erythema Wound/Incision: Yes: Other (Dressing intact, pale wound bed. small amt purulent drainage) Neurological: Yes: Paresthesia, Other (peripheral neuropathy) ...Motor Strength: LUE, LLE (weakness) Psychiatric: Yes: WNL Labs: CBC, BMP 02/01/18 06:00 02/01/18 06:00 CBC,CMP WBC 10.1 K/mm3 (4.0-10.0) H D 02/01/18 06:00 RBC 4.03 M/mm3 (4.00-5.60) 02/01/18 06:00 Hgb 11.9 GM/dL (11.7-16.9) 02/01/18 06:00 Hct 37.0 % (35.4-49) 02/01/18 06:00 MCV 91.8 fl (80-96) 02/01/18 06:00 MCH 29.5 pg (25.7-33.7) 02/01/18 06:00 MCHC 32.1 g/dl (32.0-35.9) 02/01/18 06:00 RDW 15.4 % (11.9-15.9) 02/01/18 06:00 Plt Count 133 K/MM3 (134-434) L 02/01/18 06:00 MPV 8.9 fl (7.5-11.1) 02/01/18 06:00 Absolute Neuts (auto) 7.9 # 02/01/18 06:00 Neutrophils % 78.8 % (42.8-82.8) D 02/01/18 06:00 Lymphocytes % 13.8 % (8-40) D 02/01/18 06:00 Monocytes % 6.8 % (3.8-10.2) 02/01/18 06:00 Eosinophils % 0.3 % (0-4.5) D 02/01/18 06:00 Basophils % 0.3 % (0-2.0) 02/01/18 06:00 Nucleated RBC % 0 % (0-0) 02/01/18 06:00 Sodium 134 mmol/L (136-145) L 02/01/18 06:00 Potassium 3.4 mmol/L (3.5-5.1) L 02/01/18 06:00 Chloride 97 mmol/L (98-107) L 02/01/18 06:00 Carbon Dioxide 24 mmol/L (21-32) 02/01/18 06:00 Anion Gap 13 (8-16) 02/01/18 06:00 BUN 20 mg/dL (7-18) H 02/01/18 06:00 Creatinine 9.1 mg/dL (0.7-1.3) H* 02/01/18 06:00 Creat Clearance w eGFR 6.19 (>60) 02/01/18 06:00 POC Glucometer 116 UNITS (80-120) 02/01/18 11:39 Random Glucose 68 mg/dL (74-106) L 02/01/18 06:00 Hemoglobin A1c % 4.1 % (4.8-6.0) L 02/01/18 06:00 Calcium 7.4 mg/dL (8.5-10.1) L 02/01/18 06:00 Phosphorus 4.5 mg/dL (2.5-4.9) 02/01/18 06:00 Magnesium 2.0 mg/dL (1.8-2.4) 02/01/18 06:00 Total Bilirubin 0.9 mg/dL (0.2-1.0) D 02/01/18 06:00 AST 9 U/L (15-37) L D 02/01/18 06:00 ALT 10 U/L (12-78) L 02/01/18 06:00 Alkaline Phosphatase 80 U/L (45-117) 02/01/18 06:00 Total Protein 6.1 g/dl (6.4-8.2) L 02/01/18 06:00 Albumin 2.6 g/dl (3.4-5.0) L 02/01/18 06:00 Current Medications Acetaminophen (Ofirmev Injection -) 1,000 mg IVPB Q6H PRN PRN Reason: FEVER Last Admin: 02/01/18 16:28 Dose: 1,000 mg Chlorhexidine Gluconate (Hibiclens For Decolonization -) 1 applic TP HS IRVIN Last Admin: 02/01/18 22:25 Dose: 1 applic Collagenase (Santyl -) 1 applic TP DAILY IRVIN Clindamycin Phosphate (Cleocin 600 Mg Premix Ivpb -) 600 mg in 50 mls @ 100 mls /hr IVPB Q8H-IV IRVIN; Protocol Last Admin: 02/01/18 17:57 Dose: 100 mls/hr Meropenem 500 mg/ Dextrose 100 mls @ 200 mls/hr IVPB Q12H IRVIN Last Admin: 02/01/18 18:47 Dose: 200 mls/hr Norepinephrine Bitartrate 8, (000 mcg/ Dextrose) 500 mls @ 18.75 mls/hr IV TITR IRVIN; Protocol Last Admin: 02/01/18 19:00 Dose: 5 mcg/min, 18.75 mls/hr Insulin Aspart (Novolog Vial Sliding Scale -) 1 vial SQ ACHS IRVIN; Protocol Last Admin: 02/01/18 22:25 Dose: 2 units Mupirocin (Bactroban Ointment (For Decolonization) -) 1 applic NS BID IRVIN Stop: 02/06/18 21:59 Last Admin: 02/01/18 22:26 Dose: 1 applic Problem List - Problems (1) Hypotension Code(s): I95.9 - HYPOTENSION, UNSPECIFIED (2) Diabetic foot ulcer Code(s): E11.621 - TYPE 2 DIABETES MELLITUS WITH FOOT ULCER; L97.509 - NON- PRESSURE CHRONIC ULCER OTH PRT UNSP FOOT W UNSP SEVERITY Qualifiers: Diabetic foot ulcer location: heel Diabetes mellitus type: other specified (including JADON) Laterality: right Non-pressure ulcer stage: unspecified non -pressure ulcer stage Qualified Code(s): E13.621 - Other specified diabetes mellitus with foot ulcer; L97.419 - Non-pressure chronic ulcer of right heel and midfoot with unspecified severity (3) ESRD (end stage renal disease) Code(s): N18.6 - END STAGE RENAL DISEASE Assessment/Plan 52 yom with PMHx of DM, ESRD on iHD, diabetic foot ulcers readmitted with worsening rt heel ulcer. Transferred to ICU for management of septic shock. s/p central line placent and on vasopressor support. Ccb by possible adverse drug reaction of skin burning and redness with m/l zosyn. Plan: -wound care as per wound care team -Followed by ID -Allergy consult -Continue with Parviz and clindamycin -F/u culture -Benadryl prn -Vasopressors for MAP>60; wean as brandon -Trend lactate -HD on hold re hypotension -Skin care, monitor for lesions -Monitor electrolytes; medical management of hyperK -Cont diabetes regimen -DVT,GI prophylaxis Swati Maher, EUFEMIAP CC time 35mins
[2018-02-01] MEDS ORDERED: HEPARIN NA (PORCINE) 5,000 UNITS/ML 1ML VIAL SQ SCH (22:00)
[2018-02-01] MEDS: CHLORHEXIDINE GLUCONATE 4% CLEANSER FOR DECOLONIZATION TP SCH (22:25)
[2018-02-01] MEDS: MUPIROCIN 2% TOPICAL OINTMENT FOR DECOLONIZATION NS SCH (22:26)
[2018-02-02] MEDS: INSULIN SLIDING SCALE (NOVOLOG) 1 VIAL SQ SCH ×5 (00:26→21:34)
[2018-02-02] MEDS: CLINDAMYCIN 600MG PREMIX IVPB 600 MG/50 ML BAG IVPB SCH ×2 (01:18→09:59)
[2018-02-02] MEDS: ACETAMINOPHEN 1000 MG/100 ML VIAL (NON FORMULARY) IVPB PRN ×3 (01:57→22:34)
[2018-02-02] MEDS: MEROPENEM 500 MG in DEXTROSE 5%-WATER 100 ML IVPB SCH (06:11)
[2018-02-02 06:19] LABS: BASO % 0.2 % (0-2.0); EOS % 1.5 % (0-4.5); HEMATOCRIT 41.2 % (35.4-49); LYMPH % 4.8 % (8-40); MCH 29.2 pg (25.7-33.7); MCHC 31.6 g/dl (32.0-35.9); MEAN CELL VOLUME 92.4 fl (80-96); MEAN PLT VOLUME 9.1 fl (7.5-11.1); MONO % 3.1 % (3.8-10.2); NEUT % 90.4 % (42.8-82.8); PLATELET COUNT 184 K/MM3 (134-434); RBC 4.46 M/mm3 (4.00-5.60); RDW 15.8 % (11.9-15.9); WHITE BLOOD COUNT 23.9 K/mm3 (4.0-10.0)
[2018-02-02 06:52] LABS: CHLORIDE 98 mmol/L (98-107); SODIUM 135 mmol/L (136-145)
[2018-02-02 07:05] LABS: ALBUMIN 2.1 g/dl (3.4-5.0); ALK PHOS 69 U/L (45-117); ANION GAP 19 (8-16); BILIRUBIN,TOTAL 0.7 mg/dL (0.2-1.0); BLOOD UREA NITROGEN 25 mg/dL (7-18); CO2 18 mmol/L (21-32); GLUCOSE,RANDOM 160 mg/dL (74-106); MAGNESIUM 1.9 mg/dL (1.8-2.4); PHOSPHOROUS 4.8 mg/dL (2.5-4.9); SGOT/AST 8 U/L (15-37); SGPT/ALT 11 U/L (12-78); TOT PROT 5.5 g/dl (6.4-8.2)
[2018-02-02 07:51] LABS: CREATININE 9.6 mg/dL (0.7-1.3)
[2018-02-02 07:52] LABS: POTASSIUM 2.8 mmol/L (3.5-5.1)
[2018-02-02 07:53] LABS: CALCIUM 6.9 mg/dL (8.5-10.1)
--- NOTE | 2018-02-02 08:36 | PN ---
Physical Exam: SUBJECTIVE: Patient seen and examined. Pt seen this am. Febrile with Tmax 101- 3am. Complaining of burning and rednes of the skin which he thinks is related to A/B use, without skin sloughinng as did to Johno in past. On levophed at 10mcg. OBJECTIVE: Vital Signs Period Temp Pulse Resp BP Sys/Gutierrez Pulse Ox Last 24 Hr 99.7 F-101.1 F 50-104 14-23 55-130/34-67 98-98 Vital Signs Temp 100.2 F H 02/02/18 06:00 Pulse 100 H 02/02/18 07:06 Resp 19 02/02/18 07:00 BP 82/50 02/02/18 07:06 Pulse Ox 98 02/01/18 20:31 Intake & Output 02/01/18 02/01/18 02/02/18 11:59 23:59 11:59 Intake Total 1400 378 Balance 1400 378 Weight 104.5 kg 103.6 kg Intake: IV 1000 228 Levophed - 8,000 Mcg In 228 D5w - 492 ml @ 5 MCG/MIN 18.75 mls/hr IV TITR IRVIN Rx#:[id number] Normal Saline - 1,000 ml 1000 @ 1000 mls/hr IV ASDIR STA Rx#:[id number] IVPB 300 150 Oral 100 Other: Voiding Method Diaper Diaper # Unmeasured Voids Void 1 Weight Measurement Method Built in [facility] Built in [facility] Intake & Output 01/30/18 01/31/18 02/01/18 02/02/18 23:59 23:59 23:59 23:59 Intake Total 1400 378 Balance 1400 378 Weight 82.554 kg 104.5 kg 103.6 kg GENERAL: The patient is awake, alert, and fully oriented, in no acute respiratory distress. Generalized redness and warmth of body. HEAD: Normal with no signs of trauma. EYES: PERRL, extraocular movements intact ENT: dry mucous membranes. LUNGS: Anterior chest clear. HEART: Tachycardic, S1, S2 ABDOMEN: Soft, nontender, nondistended, normoactive bowel sounds EXTREMITIES: 2+ pulses, warm, bilateral onychomycosis. Feet bilaterally dressed , with serosanguinous stains seen through. Pt not allowing full feet exam. NEUROLOGICAL: AAOx3. Normal speech, gait not observed. Able to move upper limbs fully. No facial droop. CBC, BMP 02/02/18 05:30 02/02/18 05:30 Laboratory Results - last 24 hr 02/01/18 02/01/18 02/02/18 06:00 11:39 05:30 WBC 23.9 H D RBC 4.46 Hgb 13.0 Hct 41.2 MCV 92.4 MCH 29.2 MCHC 31.6 L RDW 15.8 Plt Count 184 D MPV 9.1 Absolute Neuts (auto) 21.6 Neutrophils % 90.4 H Lymphocytes % 4.8 L D Monocytes % 3.1 L Eosinophils % 1.5 D Basophils % 0.2 Nucleated RBC % 0 Sodium Potassium Chloride Carbon Dioxide Anion Gap BUN Creatinine Creat Clearance w eGFR POC Glucometer 116 Random Glucose Hemoglobin A1c % 4.1 L Calcium Phosphorus Magnesium Total Bilirubin AST ALT Alkaline Phosphatase Total Protein Albumin 02/02/18 05:30 WBC RBC Hgb Hct MCV MCH MCHC RDW Plt Count MPV Absolute Neuts (auto) Neutrophils % Lymphocytes % Monocytes % Eosinophils % Basophils % Nucleated RBC % Sodium 135 L Potassium 2.8 L* Chloride 98 Carbon Dioxide 18 L D Anion Gap 19 H BUN 25 H D Creatinine 9.6 H* Creat Clearance w eGFR 5.82 POC Glucometer Random Glucose 160 H D Hemoglobin A1c % Calcium 6.9 L* Phosphorus 4.8 Magnesium 1.9 Total Bilirubin 0.7 D AST 8 L ALT 11 L Alkaline Phosphatase 69 Total Protein 5.5 L Albumin 2.1 L Active Medications Generic Name Dose Route Start Last Admin Trade Name Freq PRN Reason Stop Dose Admin Acetaminophen 1,000 mg 02/01/18 15:59 02/02/18 01:57 Ofirmev Injection - IVPB 1,000 mg Q6H PRN Administration FEVER Chlorhexidine Gluconate 1 applic 02/01/18 22:00 02/01/18 22:25 Hibiclens For Decolonization - TP 1 applic HS IRVIN Administration Collagenase 1 applic 02/02/18 10:00 Santyl - TP DAILY IRVIN Diphenhydramine HCl 25 mg 02/02/18 05:33 02/02/18 06:11 Benadryl Injection - IVPUSH 25 mg Q4H PRN Administration FOR ITCHING Clindamycin Phosphate 600 mg in 50 mls @ 100 mls/hr 02/01/18 18:00 02/02/18 01:18 Cleocin 600 Mg Premix Ivpb - IVPB 100 mls/hr Q8H-IV IRVIN Administration Protocol Meropenem 500 mg/ Dextrose 100 mls @ 200 mls/hr 02/01/18 17:15 02/02/18 06:11 IVPB 200 mls/hr Q12H IRVIN Administration Norepinephrine Bitartrate 8, 500 mls @ 18.75 mls/hr 02/01/18 19:15 02/02/18 07:06 000 mcg/ Dextrose IV 10 mcg/min TITR IRVIN 37.5 mls/hr Titration Protocol 5 MCG/MIN Insulin Aspart 1 vial 02/01/18 16:30 02/02/18 06:42 Novolog Vial Sliding Scale - SQ 2 units ACHS IRVIN Administration Protocol Mupirocin 1 applic 02/01/18 22:00 02/01/18 22:26 Bactroban Ointment (For Decolonization) - NS 02/06/18 21:59 1 applic BID IRVIN Administration ASSESSMENT/PLAN: The patient is a 52 yo m w/ PMH DM (non compliant), psychiatric illness requiring admission, ESRD on HD (MWF) who was sent to the ED from the wound care clinic for evaluation of a worsening foot ulcer. #Septic shock Pt febrile yesterday and hypotensive, limited fluids with ESRD Likely secondary to foot ulcer (S), Yet to be debrided with pt hemodynamically unstable and refusing evaluation of feet IV normal saline @75ml/hr pending renal reevaluation, no previous standing fluids because of ESRD Dialysis pending levophed-titration to MAP of 65 (last documented at 8mcg) ICU level care #Generalized skin redness and warmth No obvious rashes or skin sloughing Derm consult Pt notes it happens after AB use Previous reaction to vancomycin with skin sloughing Likely reaction to clindamycin 600mg, Zosyn and meropenem Pt received benadryl #DM foot ulcer - Likely source of infection -Pt seems to be reacting to Clindamycin 600mg, Zosyn and meropenem --ID consult- Dr Klein-Meropenem stopped -One time dose of ceftaroline 600mg given -Podiatry consult- Sent by Dr Terrazas -vascular surgery consult- Dr Villalobos-appreciate recs -MRI w/o contrast Rt foot and L foot to r/o osteo- will do MRI when more hemodynamically stable -Iv tylenol for pain -D/W ICU pt put on normal saline @75ml/hr pending - Would benefit from local wound care when more stable #Decubitus ulcer Documented by nurse Could also be source of sepsis #ESRD Hemodialysis MWF- missed dialysis yesterday due to hypotension Dr Frey on board For reevaluation #DM Pt requiring insulin, could be response to sepsis, as Hgb A1c is 4, or pt has been having hypoglycemic episodes frequently -A1C -ISS -BGM -Hgb A1c-4 #History of depression, not on medications -was previously on zoloft, patient stopped taking it without MD instruction -Hx psych hospital admit in the past -psych consult- Dr Aleman #dispo -Continue ICU mx Visit type - Emergency Visit Emergency Visit: Yes ED Registration Date: 01/31/18 Care time: The patient presented to the Emergency Department on the above date and was hospitalized for further evaluation of their emergent condition. - New Patient This patient is new to me today: No - Critical Care Critical Care patient: Yes Total Critical Care Time (in minutes): 45 Critical Care Statement: The care of this patient involved high complexity decision making to prevent further life threatening deterioration of the patient 's condition and/or to evaluate & treat vital organ system(s) failure or risk of failure. - Discharge Referral Referred to [facility] Med P.C.: No
[2018-02-02] MEDS ORDERED: POTASSIUM CHLORIDE TABS 20 MEQ TABLET.ER (FP) PO ONE (09:30)
[2018-02-02] MEDS: COLLAGENASE CLOSTRIDIUM HIST. 30 GRAMS TUBE TP SCH (10:04)
[2018-02-02] MEDS: MUPIROCIN 2% TOPICAL OINTMENT FOR DECOLONIZATION NS SCH ×2 (10:04→21:23)
--- NOTE | 2018-02-02 11:23 | PN ---
Teaching Attending Note Name of Resident: Louisa Haro ATTENDING PHYSICIAN STATEMENT I saw and evaluated the patient. I reviewed the resident's note and discussed the case with the resident. I agree with the resident's findings and plan as documented. SUBJECTIVE: Patient seen and examined in the ICU. Awake and alert. Refusing to have foot and back examined. Remains on NE @ 8 mcq via a femoral TLC (refused IJ access). Denies CP or SOB. Intake & Output 01/30/18 01/31/18 02/01/18 02/02/18 23:59 23:59 23:59 23:59 Intake Total 1400 378 Balance 1400 378 Weight 182 lb 230 lb 6.129 oz 228 lb 6.382 oz Last Vital Signs Temp Pulse Resp BP Pulse Ox 100.3 F H 104 H 17 100/55 97 02/02/18 10:00 02/02/18 11:00 02/02/18 11:00 02/02/18 11:00 02/02/18 09:00 Active Medications Acetaminophen (Ofirmev Injection -) 1,000 mg IVPB Q6H PRN PRN Reason: FEVER Last Admin: 02/02/18 01:57 Dose: 1,000 mg Chlorhexidine Gluconate (Hibiclens For Decolonization -) 1 applic TP HS IRVIN Last Admin: 02/01/18 22:25 Dose: 1 applic Collagenase (Santyl -) 1 applic TP DAILY IRVIN Last Admin: 02/02/18 10:04 Dose: 1 applic Diphenhydramine HCl (Benadryl Injection -) 25 mg IVPUSH Q4H PRN PRN Reason: FOR ITCHING Last Admin: 02/02/18 06:11 Dose: 25 mg Clindamycin Phosphate (Cleocin 600 Mg Premix Ivpb -) 600 mg in 50 mls @ 100 mls /hr IVPB Q8H-IV IRVIN; Protocol Last Admin: 02/02/18 09:59 Dose: 100 mls/hr Meropenem 500 mg/ Dextrose 100 mls @ 200 mls/hr IVPB Q12H IRVIN Last Admin: 02/02/18 06:11 Dose: 200 mls/hr Norepinephrine Bitartrate 8, (000 mcg/ Dextrose) 500 mls @ 18.75 mls/hr IV TITR IRVIN; Protocol Last Titration: 02/02/18 07:06 Dose: 10 mcg/min, 37.5 mls/hr Insulin Aspart (Novolog Vial Sliding Scale -) 1 vial SQ ACHS IRVIN; Protocol Last Admin: 02/02/18 06:42 Dose: 2 units Mupirocin (Bactroban Ointment (For Decolonization) -) 1 applic NS BID IRVIN Stop: 02/06/18 21:59 Last Admin: 02/02/18 10:04 Dose: 1 applic Constitutional: Yes: Well Nourished, No Distress, Calm, Obese Exam per vascular yesterday Integumentary: Yes: Erythema Wound/Incision: Yes: Other (Dressing intact, pale wound bed. small amt purulent drainage) Labs: Laboratory Results - last 24 hr 02/01/18 02/01/18 02/01/18 11:39 18:24 22:23 WBC RBC Hgb Hct MCV MCH MCHC RDW Plt Count MPV Absolute Neuts (auto) Neutrophils % Lymphocytes % Monocytes % Eosinophils % Basophils % Nucleated RBC % Sodium Potassium Chloride Carbon Dioxide Anion Gap BUN Creatinine Creat Clearance w eGFR POC Glucometer [phone] 189.67637 Random Glucose Calcium Phosphorus Magnesium Total Bilirubin AST ALT Alkaline Phosphatase Total Protein Albumin 02/02/18 02/02/18 02/02/18 05:30 05:30 05:53 WBC 23.9 H D RBC 4.46 Hgb 13.0 Hct 41.2 MCV 92.4 MCH 29.2 MCHC 31.6 L RDW 15.8 Plt Count 184 D MPV 9.1 Absolute Neuts (auto) 21.6 Neutrophils % 90.4 H Lymphocytes % 4.8 L D Monocytes % 3.1 L Eosinophils % 1.5 D Basophils % 0.2 Nucleated RBC % 0 Sodium 135 L Potassium 2.8 L* Chloride 98 Carbon Dioxide 18 L D Anion Gap 19 H BUN 25 H D Creatinine 9.6 H* Creat Clearance w eGFR 5.82 POC Glucometer [phone] Random Glucose 160 H D Calcium 6.9 L* Phosphorus 4.8 Magnesium 1.9 Total Bilirubin 0.7 D AST 8 L ALT 11 L Alkaline Phosphatase 69 Total Protein 5.5 L Albumin 2.1 L Problem List (1) Hypotension Code(s): I95.9 - HYPOTENSION, UNSPECIFIED (2) Diabetic foot ulcer Code(s): E11.621 - TYPE 2 DIABETES MELLITUS WITH FOOT ULCER; L97.509 - NON- PRESSURE CHRONIC ULCER OTH PRT UNSP FOOT W UNSP SEVERITY Qualifiers: Diabetic foot ulcer location: heel Diabetes mellitus type: other specified (including JADON) Laterality: right Non-pressure ulcer stage: unspecified non -pressure ulcer stage Qualified Code(s): E13.621 - Other specified diabetes mellitus with foot ulcer; L97.419 - Non-pressure chronic ulcer of right heel and midfoot with unspecified severity (3) ESRD (end stage renal disease) Code(s): N18.6 - END STAGE RENAL DISEASE Assessment/Plan Septic shock due to presumed LE diabetic foot ulcers. R/O adverse drug reaction Wound care per surgical team (patient will not allow us to examine or touch wounds) ABX per ID Follow pending cultures O2 as needed VTE prophylaxis Wean pressors Replete lytes IVF Glycemic control Dr Alonso Critical care time spent in reviewing chart, evaluating patient and formulating plan - 36 minutes.
[2018-02-02 11:31] LABS: ACANTHOCYTES 0; ANISOCYTOSIS 0; HELMET CELLS 0; HOWELL-JOLLY BODIES 0; MACROCYTOSIS 0; OVALOCYTE 0; PLATELET ESTIMATE NORMAL; ROULEAU 0; SICKELED CELLS 0; TARGET CELLS 0; TEAR DROP CELLS 0; TOXIC GRANULATION 0
--- NOTE | 2018-02-02 11:41 | PN ---
Physical Exam: SUBJECTIVE: Patient seen and examined. R Femoral Line placed. Levophed 8mcgs Tmax 101 Hypotensive after Meropenem started. Infusion was held assisted through. OBJECTIVE: Vital Signs Period Temp Pulse Resp BP Sys/Gutierrez Pulse Ox Last 24 Hr 99.7 F-101.1 F 50-106 14-23 55-130/34-67 97-100 GENERAL: The patient is awake, alert, and fully oriented, in no acute distress. HEAD: Normal with no signs of trauma. EYES: PERRL, extraocular movements intact ENT: oropharynx clear without exudates, moist mucous membranes. NECK: supple. LUNGS: Breath sounds equal, clear to auscultation bilaterally HEART: tachy, regular rythm ABDOMEN: Soft, nontender, nondistended, normoactive bowel sounds EXTREMITIES: 2+ pulses. L heel ulcer eschar. R heel with drainage and granulation tissue. NEUROLOGICAL: Cranial nerves II through XII grossly intact. SKIN: generalized redness and warmth. Laboratory Results - last 24 hr 02/01/18 02/01/18 02/01/18 11:39 18:24 22:23 WBC RBC Hgb Hct MCV MCH MCHC RDW Plt Count MPV Absolute Neuts (auto) Neutrophils % Lymphocytes % Monocytes % Eosinophils % Basophils % Nucleated RBC % Sodium Potassium Chloride Carbon Dioxide Anion Gap BUN Creatinine Creat Clearance w eGFR POC Glucometer 116 154.98022 189.01507 Random Glucose Calcium Phosphorus Magnesium Total Bilirubin AST ALT Alkaline Phosphatase Total Protein Albumin 02/02/18 02/02/18 02/02/18 05:30 05:30 05:53 WBC 23.9 H D RBC 4.46 Hgb 13.0 Hct 41.2 MCV 92.4 MCH 29.2 MCHC 31.6 L RDW 15.8 Plt Count 184 D MPV 9.1 Absolute Neuts (auto) 21.6 Neutrophils % 90.4 H Lymphocytes % 4.8 L D Monocytes % 3.1 L Eosinophils % 1.5 D Basophils % 0.2 Nucleated RBC % 0 Sodium 135 L Potassium 2.8 L* Chloride 98 Carbon Dioxide 18 L D Anion Gap 19 H BUN 25 H D Creatinine 9.6 H* Creat Clearance w eGFR 5.82 POC Glucometer [phone] Random Glucose 160 H D Calcium 6.9 L* Phosphorus 4.8 Magnesium 1.9 Total Bilirubin 0.7 D AST 8 L ALT 11 L Alkaline Phosphatase 69 Total Protein 5.5 L Albumin 2.1 L Active Medications Generic Name Dose Route Start Last Admin Trade Name Freq PRN Reason Stop Dose Admin Acetaminophen 1,000 mg 02/01/18 15:59 02/02/18 01:57 Ofirmev Injection - IVPB 1,000 mg Q6H PRN Administration FEVER Chlorhexidine Gluconate 1 applic 02/01/18 22:00 02/01/18 22:25 Hibiclens For Decolonization - TP 1 applic HS IRVIN Administration Collagenase 1 applic 02/02/18 10:00 02/02/18 10:04 Santyl - TP 1 applic DAILY IRVIN Administration Diphenhydramine HCl 25 mg 02/02/18 05:33 02/02/18 06:11 Benadryl Injection - IVPUSH 25 mg Q4H PRN Administration FOR ITCHING Clindamycin Phosphate 600 mg in 50 mls @ 100 mls/hr 02/01/18 18:00 02/02/18 09:59 Cleocin 600 Mg Premix Ivpb - IVPB 100 mls/hr Q8H-IV IRVIN Administration Protocol Meropenem 500 mg/ Dextrose 100 mls @ 200 mls/hr 02/01/18 17:15 02/02/18 06:11 IVPB 200 mls/hr Q12H IRVIN Administration Norepinephrine Bitartrate 8, 500 mls @ 18.75 mls/hr 02/01/18 19:15 02/02/18 07:06 000 mcg/ Dextrose IV 10 mcg/min TITR IRVIN 37.5 mls/hr Titration Protocol 5 MCG/MIN Insulin Aspart 1 vial 02/01/18 16:30 02/02/18 06:42 Novolog Vial Sliding Scale - SQ 2 units ACHS IRVIN Administration Protocol Mupirocin 1 applic 02/01/18 22:00 02/02/18 10:04 Bactroban Ointment (For Decolonization) - NS 02/06/18 21:59 1 applic BID IRVIN Administration ASSESSMENT/PLAN: 52 yom with PMHx of DM, ESRD on HD, diabetic foot ulcers readmitted with worsening rt heel ulcer. Transferred to ICU for management of septic shock. s/p central line placent and on vasopressor support. possible adverse drug reaction of skin burning and redness with m/l zosyn. #PULM -100% O2 sat on RA -O2 supplementation PRN #CV -Septic shock secondary to Diabetic foot ulcer -r/o adverse drug reaction -R Femoral line /6 -Levophed 8mcgs -Wean off pressers -IV fluids NS @ 75ml/hours -Dialysis was held yesterday #Diabetic foot ulcers -Vascular on board, appreciate reccs -ID on board -IV abx: Meropenem. Clinda -Meropenem held due to possible skin reaction -FU podiatry reccs -MRI Rt foot r/o osteo- will do MRI when more hemodynamically stable #INTUG -Generalized redness and warmth -likely secondary to drug reaction: Meropenem -hx of drug reactions in the past -Derm on board #Endocrine -BGM -ISS -A1c # -ESRD -HD (MW) -Appreciate Nephro reccs #FEN -NS @ 75/hour -monitor lytes -Diabetic diet #DVT Hep sq Visit type - Emergency Visit Emergency Visit: Yes ED Registration Date: 01/31/18 Care time: The patient presented to the Emergency Department on the above date and was hospitalized for further evaluation of their emergent condition. - New Patient This patient is new to me today: Yes Date on this admission: 02/02/18 - Critical Care Critical Care patient: Yes Total Critical Care Time (in minutes): 40 Critical Care Statement: The care of this patient involved high complexity decision making to prevent further life threatening deterioration of the patient 's condition and/or to evaluate & treat vital organ system(s) failure or risk of failure.
[2018-02-02] MEDS: SODIUM CHLORIDE 1,000 ML IV SCH (11:45)
--- NOTE | 2018-02-02 11:46 | PN ---
Teaching Attending Note Name of Resident: Vianca Da Silva ATTENDING PHYSICIAN STATEMENT I saw and evaluated the patient. I reviewed the resident's note and discussed the case with the resident. I agree with the resident's findings and plan as documented with exceptions below. SUBJECTIVE: Patient seen and examined, Reports burning all over, no new pain. Dizziness resolved. Denies any other symptoms. OBJECTIVE: Vital Signs Period Temp Pulse Resp BP Sys/Gutierrez Pulse Ox Last 24 Hr 99.7 F-101.1 F 85-106 14-23 55-130/34-67 97-100 Intake & Output 01/30/18 01/31/18 02/01/18 02/02/18 23:59 23:59 23:59 23:59 Intake Total 1400 378 Balance 1400 378 Weight 182 lb 230 lb 6.129 oz 228 lb General: lying in bed in no acute distress Skin: generalized flushed Chest: CTAB, no rales or wheezing Abdomen:soft, obese, NT Extremities: bilateral lower 1/3rd extremities dressinn present, swelling/ erythema/warmth above the dressing, patient declines foot exam except by foot or leg surgeon Home Medications Medication Instructions Recorded NK [No Known Home Medication] 01/31/18 Active Medications Acetaminophen (Ofirmev Injection -) 1,000 mg IVPB Q6H PRN PRN Reason: FEVER Last Admin: 02/02/18 01:57 Dose: 1,000 mg Chlorhexidine Gluconate (Hibiclens For Decolonization -) 1 applic TP HS IRVIN Last Admin: 02/01/18 22:25 Dose: 1 applic Collagenase (Santyl -) 1 applic TP DAILY IRVIN Last Admin: 02/02/18 10:04 Dose: 1 applic Diphenhydramine HCl (Benadryl Injection -) 25 mg IVPUSH Q4H PRN PRN Reason: FOR ITCHING Last Admin: 02/02/18 06:11 Dose: 25 mg Clindamycin Phosphate (Cleocin 600 Mg Premix Ivpb -) 600 mg in 50 mls @ 100 mls /hr IVPB Q8H-IV IRVIN; Protocol Last Admin: 02/02/18 09:59 Dose: 100 mls/hr Meropenem 500 mg/ Dextrose 100 mls @ 200 mls/hr IVPB Q12H IRVIN Last Admin: 02/02/18 06:11 Dose: 200 mls/hr Norepinephrine Bitartrate 8, (000 mcg/ Dextrose) 500 mls @ 18.75 mls/hr IV TITR IRVIN; Protocol Last Titration: 02/02/18 07:06 Dose: 10 mcg/min, 37.5 mls/hr Sodium Chloride (Normal Saline -) 1,000 mls @ 75 mls/hr IV ASDIR IRVIN Insulin Aspart (Novolog Vial Sliding Scale -) 1 vial SQ ACHS IRVIN; Protocol Last Admin: 02/02/18 06:42 Dose: 2 units Mupirocin (Bactroban Ointment (For Decolonization) -) 1 applic NS BID IRVIN Stop: 02/06/18 21:59 Last Admin: 02/02/18 10:04 Dose: 1 applic Laboratory Results - last 24 hr 02/01/18 02/01/18 02/01/18 11:39 18:24 22:23 WBC RBC Hgb Hct MCV MCH MCHC RDW Plt Count MPV Absolute Neuts (auto) Neutrophils % Neutrophils % (Manual) Band Neutrophils % Lymphocytes % Lymphocytes % (Manual) Monocytes % Monocytes % (Manual) Eosinophils % Eosinophils % (Manual) Basophils % Basophils % (Manual) Myelocytes % (Man) Promyelocytes % (Man) Blast Cells % (Manual) Nucleated RBC % Metamyelocytes Hypochromia Toxic Granulation Dohle Bodies Platelet Estimate Polychromasia Poikilocytosis Basophilic Stippling Anisocytosis Microcytosis Macrocytosis Spherocytes Sickle Cells Target Cells Tear Drop Cells Ovalocytes Stomatocytes Helmet Cells Hinds-[place] Bodies [place] Rings Messi Cells Acanthocytes (Spur) Rouleaux Fragmented RBCs Schistocytes Sodium Potassium Chloride Carbon Dioxide Anion Gap BUN Creatinine Creat Clearance w eGFR POC Glucometer [phone] 189.48165 Random Glucose Calcium Phosphorus Magnesium Total Bilirubin AST ALT Alkaline Phosphatase Total Protein Albumin 02/02/18 02/02/18 02/02/18 05:30 05:30 05:53 WBC 23.9 H D RBC 4.46 Hgb 13.0 Hct 41.2 MCV 92.4 MCH 29.2 MCHC 31.6 L RDW 15.8 Plt Count 184 D MPV 9.1 Absolute Neuts (auto) 21.6 Neutrophils % 90.4 H Neutrophils % (Manual) 90.0 H Band Neutrophils % 3.0 Lymphocytes % 4.8 L D Lymphocytes % (Manual) 3.0 L Monocytes % 3.1 L Monocytes % (Manual) 0 L Eosinophils % 1.5 D Eosinophils % (Manual) 3.0 Basophils % 0.2 Basophils % (Manual) 0.0 Myelocytes % (Man) 0 Promyelocytes % (Man) 0 Blast Cells % (Manual) 0 Nucleated RBC % 0 Metamyelocytes 0 Hypochromia 0 Toxic Granulation 0 Dohle Bodies 0 Platelet Estimate Normal Polychromasia 0 Poikilocytosis 0 Basophilic Stippling 0 Anisocytosis 0 Microcytosis 0 Macrocytosis 0 Spherocytes 0 Sickle Cells 0 Target Cells 0 Tear Drop Cells 0 Ovalocytes 0 Stomatocytes 0 Helmet Cells 0 [place] Bodies 0 [place] Rings 0 Messi Cells 0 Acanthocytes (Spur) 0 Rouleaux 0 Fragmented RBCs 0 Schistocytes 0 Sodium 135 L Potassium 2.8 L* Chloride 98 Carbon Dioxide 18 L D Anion Gap 19 H BUN 25 H D Creatinine 9.6 H* Creat Clearance w eGFR 5.82 POC Glucometer [phone] Random Glucose 160 H D Calcium 6.9 L* Phosphorus 4.8 Magnesium 1.9 Total Bilirubin 0.7 D AST 8 L ALT 11 L Alkaline Phosphatase 69 Total Protein 5.5 L Albumin 2.1 L Microbiology 01/31/18 17:19 Blood - Peripheral Venous Blood Culture - Preliminary NO GROWTH OBTAINED AFTER 24 HOURS, INCUBATION TO CONTINUE FOR 4 DAYS. 01/31/18 17:19 Blood - Peripheral Venous Blood Culture - Preliminary NO GROWTH OBTAINED AFTER 24 HOURS, INCUBATION TO CONTINUE FOR 4 DAYS. ASSESSMENT AND PLAN: 52 yom with PMHx of diabetes mellitus, depression, vancomycin allergy, wheelchair dependence, ESRD on hemodialysis for 3 years, right diabetic foot ulcers, and fecal incontinence admitted with non healing right foot diabetic ulcer with cellulitis -Non healing right foot diabetic ulcer with cellulitis, r/o abscess/ osteomyelitis with septic shock -?Drug reaction -ESRD on HD -Diabetes Mellitus -Depression Plan: Reported flushing with itching yesterday, zosyn changed to meropenem. Now reports flushing/burning this AM, ?drug reaction Discuss with ID about antibiotics. Continue pressors, titrate as needed, MRI Lower extremities. Poditary/vascular surgery recs noted, follow up for possible debridement/ surgical intervention Xray with possible foreign body. PVR. ISS,patient denies being on home meds. Blood/wound cx. HD per renal. Replete K prn with HD. Psych input noted. DVTPPx with heparin Plan discussed with ICU, nursing. Total critical care time spent 40 min.
[2018-02-02] MEDS ORDERED: CEFTAROLINE FOSAMIL ACETATE 600 MG in DEXTROSE 5%-WATER - 100 ML IVPB ONE (11:57)
--- NOTE | 2018-02-02 13:07 | PN ---
Progress Note (short form) - Note Progress Note: Pt seen in bed in ICU. Low BP. VSS. Seeing for b/l wounds. +infected wounds b/l, heels, +eschar left heel medial aspect, right heel granulation tissue, culture results no growth, +mal odor right, +localized cellulitis r/o om r/o pvd r/o dm Grade 2-3 wounds b/l feet hypotensive Awaiting results of MRI, Culture, Vascular and ID. B/l santyl dressing changes to heels. Heel pads b/l. Will follow.
[2018-02-02] MEDS: HEPARIN NA (PORCINE) 5,000 UNITS/ML 1ML VIAL SQ SCH ×3 (13:36→21:33)
[2018-02-02] MEDS ORDERED: CEFTAROLINE FOSAMIL ACETATE 200 MG in DEXTROSE 5%-WATER - 100 ML IVPB ONE (14:45)
[2018-02-02] MEDS ORDERED: NOREPINEPHRINE BITARTRATE 4 MG/4 ML ML IV ONE (14:49)
--- NOTE | 2018-02-02 15:46 | PN ---
Progress Note, Physician History of Present Illness: Pt seen and examined at bedside. He is now in the ICU. He was not dialyzed last night as he was hypotesnive and unstable. Pt remains hypotesnive on pressors. He is still spiking fever. He did develope rash. he denies shortness of breath or palpitations. - Current Medication List Current Medications: Active Medications Acetaminophen (Ofirmev Injection -) 1,000 mg IVPB Q6H PRN PRN Reason: FEVER Last Admin: 02/02/18 13:36 Dose: 1,000 mg Chlorhexidine Gluconate (Hibiclens For Decolonization -) 1 applic TP HS IRVIN Last Admin: 02/01/18 22:25 Dose: 1 applic Collagenase (Santyl -) 1 applic TP DAILY IRVIN Last Admin: 02/02/18 10:04 Dose: 1 applic Diphenhydramine HCl (Benadryl Injection -) 25 mg IVPUSH Q4H PRN PRN Reason: FOR ITCHING Last Admin: 02/02/18 06:11 Dose: 25 mg Heparin Sodium (Porcine) (Heparin -) 5,000 unit SQ TID IRVIN Last Admin: 02/02/18 13:36 Dose: 5,000 unit Norepinephrine Bitartrate 8, (000 mcg/ Dextrose) 500 mls @ 18.75 mls/hr IV TITR IRVIN; Protocol Last Titration: 02/02/18 10:00 Dose: 8 mcg/min, 30 mls/hr Sodium Chloride (Normal Saline -) 1,000 mls @ 75 mls/hr IV ASDIR IRVIN Last Admin: 02/02/18 11:45 Dose: 75 mls/hr Insulin Aspart (Novolog Vial Sliding Scale -) 1 vial SQ ACHS IRVIN; Protocol Last Admin: 02/02/18 11:45 Dose: 2 units Mupirocin (Bactroban Ointment (For Decolonization) -) 1 applic NS BID IRVIN Stop: 02/06/18 21:59 Last Admin: 02/02/18 10:04 Dose: 1 applic - Objective Vital Signs: Vital Signs Temperature 101.2 F H 02/02/18 14:00 Pulse Rate 106 H 02/02/18 14:00 Respiratory Rate 16 02/02/18 14:00 Blood Pressure 95/52 02/02/18 14:00 O2 Sat by Pulse Oximetry (%) 97 02/02/18 09:00 Constitutional: Yes: Calm Eyes: Yes: Conjunctiva Clear HENT: Yes: Atraumatic Cardiovascular: Yes: S1, S2 Respiratory: Yes: On Nasal O2 Gastrointestinal: Yes: Soft Genitourinary: Yes: WNL Musculoskeletal: Yes: WNL Edema: Yes Edema: LLE: 1+, RLE: 1+ Integumentary: Yes: Erythema, Tattoos Neurological: Yes: Oriented Psychiatric: Yes: Oriented Labs: CBC, BMP 02/02/18 05:30 02/02/18 05:30 Problem List - Problems (1) ESRD (end stage renal disease) Code(s): N18.6 - END STAGE RENAL DISEASE (2) Diabetic foot ulcer Code(s): E11.621 - TYPE 2 DIABETES MELLITUS WITH FOOT ULCER; L97.509 - NON- PRESSURE CHRONIC ULCER OTH PRT UNSP FOOT W UNSP SEVERITY Qualifiers: Diabetic foot ulcer location: heel Diabetes mellitus type: other specified (including JADON) Laterality: right Non-pressure ulcer stage: unspecified non -pressure ulcer stage Qualified Code(s): E13.621 - Other specified diabetes mellitus with foot ulcer; L97.419 - Non-pressure chronic ulcer of right heel and midfoot with unspecified severity Assessment/Plan Current Medications Generic Name Dose Route Start Last Admin Trade Name Jessica PRN Reason Stop Dose Admin Acetaminophen 1,000 mg 02/01/18 15:59 02/02/18 13:36 Ofirmev Injection - IVPB 1,000 mg Q6H PRN Administration FEVER Chlorhexidine Gluconate 1 applic 02/01/18 22:00 02/01/18 22:25 Hibiclens For Decolonization - TP 1 applic HS IRVIN Administration Collagenase 1 applic 02/02/18 10:00 02/02/18 10:04 Santyl - TP 1 applic DAILY IRVIN Administration Diphenhydramine HCl 25 mg 02/02/18 05:33 02/02/18 06:11 Benadryl Injection - IVPUSH 25 mg Q4H PRN Administration FOR ITCHING Heparin Sodium (Porcine) 5,000 unit 02/02/18 14:00 02/02/18 13:36 Heparin - SQ 5,000 unit TID IRVIN Administration Norepinephrine Bitartrate 8, 500 mls @ 18.75 mls/hr 02/01/18 19:15 02/02/18 10:00 000 mcg/ Dextrose IV 8 mcg/min TITR IRVIN 30 mls/hr Titration Protocol 5 MCG/MIN Sodium Chloride 1,000 mls @ 75 mls/hr 02/02/18 11:30 02/02/18 11:45 Normal Saline - IV 75 mls/hr ASDIR IRVIN Administration Insulin Aspart 1 vial 02/01/18 16:30 02/02/18 11:45 Novolog Vial Sliding Scale - SQ 2 units ACHS IRVIN Administration Protocol Mupirocin 1 applic 02/01/18 22:00 02/02/18 10:04 Bactroban Ointment (For Decolonization) - NS 02/06/18 21:59 1 applic BID IRVIN Administration Impression 1. ESRD 2. anemia 3. DFU 4. DM 5. sepsis 6. hypokalemia 7. hypotension 8. rash Plan - would hold off HD today and re-assess in the am - replace potassium - check mag - agree with fluids - cont pressors - abx per ID - wbc is rising - wound care to leg - HD AVF 4:15 abf 450 heparin 6000 with 1000 q hour, 2 k [facility] [phone] - discussed with ICU team - follow blood cultures - ICU monitoring - get cxr in am - will follow Dr Frey
[2018-02-02] MEDS: NOREPINEPHRINE BITARTRATE 8,000 MCG in DEXTROSE 5%-WATER - 492 ML IV SCH ×2 (17:05→19:15)
--- NOTE | 2018-02-02 19:01 | PN ---
Progress Note, Physician History of Present Illness: stable says skin is burning flushed seen by podiatry wound vac placed - Current Medication List Current Medications: Active Medications Acetaminophen (Ofirmev Injection -) 1,000 mg IVPB Q6H PRN PRN Reason: FEVER Last Admin: 02/02/18 13:36 Dose: 1,000 mg Chlorhexidine Gluconate (Hibiclens For Decolonization -) 1 applic TP HS IRVIN Last Admin: 02/01/18 22:25 Dose: 1 applic Collagenase (Santyl -) 1 applic TP DAILY IRVIN Last Admin: 02/02/18 10:04 Dose: 1 applic Diphenhydramine HCl (Benadryl Injection -) 25 mg IVPUSH Q4H PRN PRN Reason: FOR ITCHING Last Admin: 02/02/18 17:06 Dose: 25 mg Heparin Sodium (Porcine) (Heparin -) 5,000 unit SQ TID IRVIN Last Admin: 02/02/18 13:36 Dose: 5,000 unit Norepinephrine Bitartrate 8, (000 mcg/ Dextrose) 500 mls @ 18.75 mls/hr IV TITR IRVIN; Protocol Last Admin: 02/02/18 17:05 Dose: 8 mcg/min, 30 mls/hr Sodium Chloride (Normal Saline -) 1,000 mls @ 75 mls/hr IV ASDIR IRVIN Last Admin: 02/02/18 11:45 Dose: 75 mls/hr Ceftaroline Fosamil 200 mg/ (Dextrose) 100 mls @ 100 mls/hr IVPB Q12H IRVIN; Protocol Insulin Aspart (Novolog Vial Sliding Scale -) 1 vial SQ ACHS IRVIN; Protocol Last Admin: 02/02/18 17:08 Dose: 2 units Mupirocin (Bactroban Ointment (For Decolonization) -) 1 applic NS BID IRVIN Stop: 02/06/18 21:59 Last Admin: 02/02/18 10:04 Dose: 1 applic - Objective Vital Signs: Vital Signs Temperature 100.6 F H 02/02/18 16:00 Pulse Rate 105 H 02/02/18 17:05 Respiratory Rate 15 02/02/18 16:00 Blood Pressure 110/60 02/02/18 17:05 O2 Sat by Pulse Oximetry (%) 97 02/02/18 09:00 Constitutional: Yes: Calm, Mild Distress Neck: Yes: Supple Cardiovascular: Yes: Regular Rate and Rhythm Respiratory: Yes: Regular, CTA Bilaterally Gastrointestinal: Yes: Normal Bowel Sounds, Soft Musculoskeletal: Yes: Other Extremities: Yes: Other Wound/Incision: Yes: Dressing Dry and Intact, Other (wound vac in place) Neurological: Yes: Alert, Oriented Psychiatric: Yes: Alert, Oriented Labs: CBC, BMP 02/02/18 05:30 02/02/18 05:30 Assessment/Plan Problem List (1) Hypotension Code(s): I95.9 - HYPOTENSION, UNSPECIFIED (2) Diabetic foot ulcer Code(s): E11.621 - TYPE 2 DIABETES MELLITUS WITH FOOT ULCER; L97.509 - NON- PRESSURE CHRONIC ULCER OTH PRT UNSP FOOT W UNSP SEVERITY Qualifiers: Diabetic foot ulcer location: heel Diabetes mellitus type: other specified (including JADON) Laterality: right Non-pressure ulcer stage: unspecified non -pressure ulcer stage Qualified Code(s): E13.621 - Other specified diabetes mellitus with foot ulcer; L97.419 - Non-pressure chronic ulcer of right heel and midfoot with unspecified severity (3) ESRD (end stage renal disease) Code(s): N18.6 - END STAGE RENAL DISEASE Septic shock due to presumed LE diabetic foot ulcers. bilateral cellulitis of the leg plan x ceftorline dialysis pressors close watch wound care rest as per icu cc 40 min
[2018-02-02] MEDS ORDERED: ONDANSETRON 4 MG/2 ML VIAL ONE (19:37)
[2018-02-02] MEDS ORDERED: ONDANSETRON 4 MG/2 ML VIAL IVPB ONE (19:45)
[2018-02-02] MEDS ORDERED: METOCLOPRAMIDE HCL INJECTION 10 MG/2 ML VIAL IVPUSH ONE (19:45)
[2018-02-02] MEDS: CHLORHEXIDINE GLUCONATE 4% CLEANSER FOR DECOLONIZATION TP SCH (21:24)
[2018-02-03] MEDS: CEFTAROLINE FOSAMIL ACETATE 200 MG in DEXTROSE 5%-WATER - 100 ML IVPB SCH ×2 (05:18→18:09)
[2018-02-03] MEDS: HEPARIN NA (PORCINE) 5,000 UNITS/ML 1ML VIAL SQ SCH ×3 (05:20→21:02)
[2018-02-03] MEDS: INSULIN SLIDING SCALE (NOVOLOG) 1 VIAL SQ SCH ×4 (06:06→21:03)
[2018-02-03 06:20] LABS: HEMATOCRIT 37.7 % (35.4-49); MCHC 31.8 g/dl (32.0-35.9); MEAN CELL VOLUME 91.2 fl (80-96); MEAN PLT VOLUME 8.8 fl (7.5-11.1); PLATELET COUNT 152 K/MM3 (134-434); RBC 4.14 M/mm3 (4.00-5.60); RDW 15.7 % (11.9-15.9); WHITE BLOOD COUNT 21.9 K/mm3 (4.0-10.0)
[2018-02-03 06:44] LABS: BLOOD UREA NITROGEN 32 mg/dL (7-18); CHLORIDE 100 mmol/L (98-107); POTASSIUM 3.3 mmol/L (3.5-5.1); SODIUM 136 mmol/L (136-145)
[2018-02-03 06:50] LABS: ALK PHOS 80 U/L (45-117); ANION GAP 14 (8-16); BILIRUBIN,TOTAL 0.5 mg/dL (0.2-1.0); CO2 22 mmol/L (21-32); GLUCOSE,RANDOM 127 mg/dL (74-106); MAGNESIUM 1.7 mg/dL (1.8-2.4); SGOT/AST 6 U/L (15-37); SGPT/ALT 7 U/L (12-78)
[2018-02-03 06:53] LABS: CALCIUM 6.6 mg/dL (8.5-10.1); CREATININE 10.8 mg/dL (0.7-1.3)
[2018-02-03] MEDS ORDERED: POTASSIUM CHLORIDE TABS 20 MEQ TABLET.ER (FP) PO ONE (08:00)
[2018-02-03] MEDS ORDERED: MAGNESIUM 1GM/D5W 100ML - 100 ML IVPB IVPB ONE (08:30)
--- NOTE | 2018-02-03 09:10 | PN ---
Progress Note (short form) - Note Progress Note: Pt seen in bed in ICU. VSS. Seeing for b/l wounds. Sleeping today. wounds b/l, heels, culture results no growth, +mal odor right, +localized cellulitis wbc=21.9, gzoz7i=1.3 r/o om r/o pvd r/o dm Grade 2-3 wounds b/l feet Awaiting results of MRI. Vac to right heel. Santyl to all other wounds. Will follow.
[2018-02-03] MEDS: MUPIROCIN 2% TOPICAL OINTMENT FOR DECOLONIZATION NS SCH ×2 (09:54→21:03)
[2018-02-03] MEDS: COLLAGENASE CLOSTRIDIUM HIST. 30 GRAMS TUBE TP SCH (11:24)
--- NOTE | 2018-02-03 11:28 | PN ---
Teaching Attending Note Name of Resident: Louisa Haro ATTENDING PHYSICIAN STATEMENT I saw and evaluated the patient. I reviewed the resident's note and discussed the case with the resident. I agree with the resident's findings and plan as documented. SUBJECTIVE: Patient seen and examined in the ICU. Awake and alert. Still refusing to have foot and back examined. Remains on NE @ 5 mcq via a femoral TLC (refused IJ access). Denies CP or SOB. Intake & Output 01/31/18 02/01/18 02/02/18 02/03/18 23:59 23:59 23:59 23:59 Intake Total 1400 2290 1120.8 Balance 1400 2290 1120.8 Weight 182 lb 230 lb 6.129 oz 228 lb 232 lb 8 oz Last Vital Signs Temp Pulse Resp BP Pulse Ox 99.2 F 102 H 18 110/58 99 02/03/18 10:00 02/03/18 10:00 02/03/18 10:00 02/03/18 10:00 02/02/18 20:38 Active Medications Chlorhexidine Gluconate (Hibiclens For Decolonization -) 1 applic TP HS IRVIN Last Admin: 02/02/18 21:24 Dose: 1 applic Collagenase (Santyl -) 1 applic TP DAILY IRVIN Last Admin: 02/03/18 11:24 Dose: 1 applic Diphenhydramine HCl (Benadryl Injection -) 25 mg IVPUSH Q4H PRN PRN Reason: FOR ITCHING Last Admin: 02/02/18 17:06 Dose: 25 mg Heparin Sodium (Porcine) (Heparin -) 5,000 unit SQ TID IRVIN Last Admin: 02/03/18 05:20 Dose: Not Given Norepinephrine Bitartrate 8, (000 mcg/ Dextrose) 500 mls @ 18.75 mls/hr IV TITR IRVIN; Protocol Last Titration: 02/03/18 06:00 Dose: 5 mcg/min, 18.75 mls/hr Sodium Chloride (Normal Saline -) 1,000 mls @ 75 mls/hr IV ASDIR IRVIN Last Admin: 02/02/18 11:45 Dose: 75 mls/hr Ceftaroline Fosamil 200 mg/ (Dextrose) 100 mls @ 100 mls/hr IVPB Q12H IRVIN; Protocol Last Admin: 02/03/18 05:18 Dose: 100 mls/hr Insulin Aspart (Novolog Vial Sliding Scale -) 1 vial SQ ACHS IRVIN; Protocol Last Admin: 02/03/18 06:06 Dose: 2 units Mupirocin (Bactroban Ointment (For Decolonization) -) 1 applic NS BID IRVIN Stop: 02/06/18 21:59 Last Admin: 02/03/18 09:54 Dose: 1 applic Constitutional: Yes: Well Nourished, No Distress, Calm, Obese Exam per vascular yesterday Integumentary: Yes: Erythema Wound/Incision: Yes: Other (Dressing intact, pale wound bed. small amt purulent drainage) Labs: Laboratory Results - last 24 hr 02/02/18 02/02/18 02/02/18 05:30 11:37 17:04 WBC RBC Hgb Hct MCV MCH MCHC RDW Plt Count MPV Neutrophils % (Manual) 90.0 H Band Neutrophils % 3.0 Lymphocytes % (Manual) 3.0 L Monocytes % (Manual) 0 L Eosinophils % (Manual) 3.0 Basophils % (Manual) 0.0 Myelocytes % (Man) 0 Promyelocytes % (Man) 0 Blast Cells % (Manual) 0 Metamyelocytes 0 Hypochromia 0 Toxic Granulation 0 Dohle Bodies 0 Platelet Estimate Normal Polychromasia 0 Poikilocytosis 0 Basophilic Stippling 0 Anisocytosis 0 Microcytosis 0 Macrocytosis 0 Spherocytes 0 Sickle Cells 0 Target Cells 0 Tear Drop Cells 0 Ovalocytes 0 Stomatocytes 0 Helmet Cells 0 Hinds-[place] Bodies 0 [place] Rings 0 [place] Cells 0 Acanthocytes (Spur) 0 Rouleaux 0 Fragmented RBCs 0 Schistocytes 0 Sodium Potassium Chloride Carbon Dioxide Anion Gap BUN Creatinine Creat Clearance w eGFR POC Glucometer 159.32237 191.05543 Random Glucose Hemoglobin A1c % Calcium Phosphorus Magnesium Total Bilirubin AST ALT Alkaline Phosphatase Total Protein Albumin 02/03/18 02/03/18 02/03/18 05:16 06:00 06:00 WBC 21.9 H RBC 4.14 Hgb 12.0 Hct 37.7 MCV 91.2 MCH 29.0 MCHC 31.8 L RDW 15.7 Plt Count 152 MPV 8.8 Neutrophils % (Manual) Band Neutrophils % Lymphocytes % (Manual) Monocytes % (Manual) Eosinophils % (Manual) Basophils % (Manual) Myelocytes % (Man) Promyelocytes % (Man) Blast Cells % (Manual) Metamyelocytes Hypochromia Toxic Granulation Dohle Bodies Platelet Estimate Polychromasia Poikilocytosis Basophilic Stippling Anisocytosis Microcytosis Macrocytosis Spherocytes Sickle Cells Target Cells Tear Drop Cells Ovalocytes Stomatocytes Helmet Cells [place] Bodies [place] Rings [place] Cells Acanthocytes (Spur) Rouleaux Fragmented RBCs Schistocytes Sodium Potassium Chloride Carbon Dioxide Anion Gap BUN Creatinine Creat Clearance w eGFR POC Glucometer [phone] Random Glucose Hemoglobin A1c % 4.3 L D Calcium Phosphorus Magnesium Total Bilirubin AST ALT Alkaline Phosphatase Total Protein Albumin 02/03/18 06:00 WBC RBC Hgb Hct MCV MCH MCHC RDW Plt Count MPV Neutrophils % (Manual) Band Neutrophils % Lymphocytes % (Manual) Monocytes % (Manual) Eosinophils % (Manual) Basophils % (Manual) Myelocytes % (Man) Promyelocytes % (Man) Blast Cells % (Manual) Metamyelocytes Hypochromia Toxic Granulation Dohle Bodies Platelet Estimate Polychromasia Poikilocytosis Basophilic Stippling Anisocytosis Microcytosis Macrocytosis Spherocytes Sickle Cells Target Cells Tear Drop Cells Ovalocytes Stomatocytes Helmet Cells [place]s-[place] Bodies [place] Rings Messi Cells Acanthocytes (Spur) Rouleaux Fragmented RBCs Schistocytes Sodium 136 Potassium 3.3 L Chloride 100 Carbon Dioxide 22 D Anion Gap 14 BUN 32 H D Creatinine 10.8 H* Creat Clearance w eGFR 5.08 POC Glucometer Random Glucose 127 H D Hemoglobin A1c % Calcium 6.6 L* Phosphorus 5.0 H Magnesium 1.7 L Total Bilirubin 0.5 D AST 6 L D ALT 7 L D Alkaline Phosphatase 80 Total Protein 5.0 L Albumin 2.0 L Problem List (1) Hypotension Code(s): I95.9 - HYPOTENSION, UNSPECIFIED (2) Diabetic foot ulcer Code(s): E11.621 - TYPE 2 DIABETES MELLITUS WITH FOOT ULCER; L97.509 - NON- PRESSURE CHRONIC ULCER OTH PRT UNSP FOOT W UNSP SEVERITY Qualifiers: Diabetic foot ulcer location: heel Diabetes mellitus type: other specified (including JADON) Laterality: right Non-pressure ulcer stage: unspecified non -pressure ulcer stage Qualified Code(s): E13.621 - Other specified diabetes mellitus with foot ulcer; L97.419 - Non-pressure chronic ulcer of right heel and midfoot with unspecified severity (3) ESRD (end stage renal disease) Code(s): N18.6 - END STAGE RENAL DISEASE Assessment/Plan Septic shock due to presumed LE diabetic foot ulcers. R/O adverse drug reaction Wound care per surgical team (patient will not allow us to examine or touch wounds) ABX per ID Follow pending cultures O2 as needed VTE prophylaxis Wean pressors Replete lytes IVF Glycemic control MRI Dr Alonso Critical care time spent in reviewing chart, evaluating patient and formulating plan - 36 minutes.
--- NOTE | 2018-02-03 11:36 | PN ---
Physical Exam: SUBJECTIVE: Patient seen and examined. Offers no new complaints. Says his itching has improved. 24 hour events: Tmax 101.7 On Levophed 3mcgs via R femoral access, refused IJ s/p L heel debridement, eschar removed OBJECTIVE: Vital Signs Period Temp Pulse Resp BP Sys/Gutierrez Pulse Ox Last 24 Hr 98.7 F-101.7 F 101-116 14-24 83-122/51-66 99 GENERAL: The patient is awake, alert, and fully oriented, in no acute distress. HEAD: Normal with no signs of trauma. EYES: PERRL, extraocular movements intact ENT: oropharynx clear without exudates, moist mucous membranes. NECK: supple. LUNGS: Breath sounds equal, clear to auscultation bilaterally HEART: tachy, regular rythm ABDOMEN: Soft, nontender, nondistended, normoactive bowel sounds EXTREMITIES: 2+ pulses. R and L foot dressing. NEUROLOGICAL: Cranial nerves II through XII grossly intact. SKIN: redness improved. Laboratory Results - last 24 hr 02/02/18 02/02/18 02/02/18 05:30 11:37 17:04 WBC RBC Hgb Hct MCV MCH MCHC RDW Plt Count MPV Neutrophils % (Manual) 90.0 H Band Neutrophils % 3.0 Lymphocytes % (Manual) 3.0 L Monocytes % (Manual) 0 L Eosinophils % (Manual) 3.0 Basophils % (Manual) 0.0 Myelocytes % (Man) 0 Promyelocytes % (Man) 0 Blast Cells % (Manual) 0 Metamyelocytes 0 Hypochromia 0 Toxic Granulation 0 Dohle Bodies 0 Platelet Estimate Normal Polychromasia 0 Poikilocytosis 0 Basophilic Stippling 0 Anisocytosis 0 Microcytosis 0 Macrocytosis 0 Spherocytes 0 Sickle Cells 0 Target Cells 0 Tear Drop Cells 0 Ovalocytes 0 Stomatocytes 0 Helmet Cells 0 [place] Bodies 0 [place] Rings 0 Messi Cells 0 Acanthocytes (Spur) 0 Rouleaux 0 Fragmented RBCs 0 Schistocytes 0 Sodium Potassium Chloride Carbon Dioxide Anion Gap BUN Creatinine Creat Clearance w eGFR POC Glucometer [phone] Random Glucose Hemoglobin A1c % Calcium Phosphorus Magnesium Total Bilirubin AST ALT Alkaline Phosphatase Total Protein Albumin 02/03/18 02/03/18 02/03/18 05:16 06:00 06:00 WBC 21.9 H RBC 4.14 Hgb 12.0 Hct 37.7 MCV 91.2 MCH 29.0 MCHC 31.8 L RDW 15.7 Plt Count 152 MPV 8.8 Neutrophils % (Manual) Band Neutrophils % Lymphocytes % (Manual) Monocytes % (Manual) Eosinophils % (Manual) Basophils % (Manual) Myelocytes % (Man) Promyelocytes % (Man) Blast Cells % (Manual) Metamyelocytes Hypochromia Toxic Granulation Dohle Bodies Platelet Estimate Polychromasia Poikilocytosis Basophilic Stippling Anisocytosis Microcytosis Macrocytosis Spherocytes Sickle Cells Target Cells Tear Drop Cells Ovalocytes Stomatocytes Helmet Cells [place] Bodies [place] Rings Messi Cells Acanthocytes (Spur) Rouleaux Fragmented RBCs Schistocytes Sodium Potassium Chloride Carbon Dioxide Anion Gap BUN Creatinine Creat Clearance w eGFR POC Glucometer [phone] Random Glucose Hemoglobin A1c % 4.3 L D Calcium Phosphorus Magnesium Total Bilirubin AST ALT Alkaline Phosphatase Total Protein Albumin 02/03/18 06:00 WBC RBC Hgb Hct MCV MCH MCHC RDW Plt Count MPV Neutrophils % (Manual) Band Neutrophils % Lymphocytes % (Manual) Monocytes % (Manual) Eosinophils % (Manual) Basophils % (Manual) Myelocytes % (Man) Promyelocytes % (Man) Blast Cells % (Manual) Metamyelocytes Hypochromia Toxic Granulation Dohle Bodies Platelet Estimate Polychromasia Poikilocytosis Basophilic Stippling Anisocytosis Microcytosis Macrocytosis Spherocytes Sickle Cells Target Cells Tear Drop Cells Ovalocytes Stomatocytes Helmet Cells [place] Bodies [place] Rings [place] Cells Acanthocytes (Spur) Rouleaux Fragmented RBCs Schistocytes Sodium 136 Potassium 3.3 L Chloride 100 Carbon Dioxide 22 D Anion Gap 14 BUN 32 H D Creatinine 10.8 H* Creat Clearance w eGFR 5.08 POC Glucometer Random Glucose 127 H D Hemoglobin A1c % Calcium 6.6 L* Phosphorus 5.0 H Magnesium 1.7 L Total Bilirubin 0.5 D AST 6 L D ALT 7 L D Alkaline Phosphatase 80 Total Protein 5.0 L Albumin 2.0 L Active Medications Generic Name Dose Route Start Last Admin Trade Name Freq PRN Reason Stop Dose Admin Chlorhexidine Gluconate 1 applic 02/01/18 22:00 02/02/18 21:24 Hibiclens For Decolonization - TP 1 applic HS IRVIN Administration Collagenase 1 applic 02/02/18 10:00 02/03/18 11:24 Santyl - TP 1 applic DAILY IRVIN Administration Diphenhydramine HCl 25 mg 02/02/18 05:33 02/02/18 17:06 Benadryl Injection - IVPUSH 25 mg Q4H PRN Administration FOR ITCHING Heparin Sodium (Porcine) 5,000 unit 02/02/18 14:00 02/03/18 05:20 Heparin - SQ Not Given TID IRVIN Norepinephrine Bitartrate 8, 500 mls @ 18.75 mls/hr 02/01/18 19:15 02/03/18 06:00 000 mcg/ Dextrose IV 5 mcg/min TITR IRVIN 18.75 mls/hr Titration Protocol 5 MCG/MIN Sodium Chloride 1,000 mls @ 75 mls/hr 02/02/18 11:30 02/02/18 11:45 Normal Saline - IV 75 mls/hr ASDIR IRVIN Administration Ceftaroline Fosamil 200 mg/ 100 mls @ 100 mls/hr 02/03/18 06:00 02/03/18 05: 18 Dextrose IVPB 100 mls/hr Q12H IRVIN Administration Protocol Insulin Aspart 1 vial 02/01/18 16:30 02/03/18 06:06 Novolog Vial Sliding Scale - SQ 2 units ACHS [facility] Administration Protocol Mupirocin 1 applic 02/01/18 22:00 02/03/18 09:54 Bactroban Ointment (For Decolonization) - NS 02/06/18 21:59 1 applic BID IRVIN Administration ASSESSMENT/PLAN: #PULM -100% O2 sat on RA -O2 supplementation PRN #CV -Septic shock secondary to Diabetic foot ulcer -r/o adverse drug reaction -R Femoral line 02/01 -Levophed down to 3mcgs -Wean off pressers -Cont. IV fluids NS @ 75ml/hours -Will be reassessed for HD today. #Diabetic foot ulcers -Vascular on board, appreciate reccs -ID on board -IV abx: Started on Ceftaroline. Meropenem D/margaret due to drug reaction. -FU podiatry reccs -Unable to undergo MRI due to pump issues. #INTUG -Generalized redness and warmth improved -likely secondary to drug reaction: Meropenem -hx of drug reactions in the past -Derm on board #Endocrine -BGM -ISS -A1c # -ESRD -likely HD today -HD ([facility]) -Appreciate Nephro reccs #FEN -NS @ 75/hour -monitor lytes -Diabetic diet #DVT Hep sq Visit type - Emergency Visit Emergency Visit: Yes ED Registration Date: 01/31/18 Care time: The patient presented to the Emergency Department on the above date and was hospitalized for further evaluation of their emergent condition. - New Patient This patient is new to me today: No - Critical Care Critical Care patient: Yes Total Critical Care Time (in minutes): 40 Critical Care Statement: The care of this patient involved high complexity decision making to prevent further life threatening deterioration of the patient 's condition and/or to evaluate & treat vital organ system(s) failure or risk of failure.
[2018-02-03] MEDS ORDERED: NOREPINEPHRINE BITARTRATE 4 MG/4 ML ML IV ONE (12:13)
[2018-02-03] MEDS: NOREPINEPHRINE BITARTRATE 8,000 MCG in DEXTROSE 5%-WATER - 492 ML IV SCH (12:18)
[2018-02-03] MEDS: SODIUM CHLORIDE 1,000 ML IV SCH (12:20)
[2018-02-03] MEDS: HEPARIN NA (PORCINE) 5,000 UNITS/ML 1ML VIAL IVPUSH SCH ×3 (13:25→15:25)
--- NOTE | 2018-02-03 16:08 | PN ---
Progress Note, Physician History of Present Illness: Pt seen and examined at bedside. He is awake and alert. He remains in the ICU. He denies shortness of breath. He feels that the rash is improving. He is tolerating HD. - Current Medication List Current Medications: Active Medications Chlorhexidine Gluconate (Hibiclens For Decolonization -) 1 applic TP HS IRVIN Last Admin: 02/02/18 21:24 Dose: 1 applic Collagenase (Santyl -) 1 applic TP DAILY IRVIN Last Admin: 02/03/18 11:24 Dose: 1 applic Diphenhydramine HCl (Benadryl Injection -) 25 mg IVPUSH Q4H PRN PRN Reason: FOR ITCHING Last Admin: 02/02/18 17:06 Dose: 25 mg Heparin Sodium (Porcine) (Heparin -) 5,000 unit SQ TID IRVIN Last Admin: 02/03/18 05:20 Dose: Not Given Norepinephrine Bitartrate 8, (000 mcg/ Dextrose) 500 mls @ 18.75 mls/hr IV TITR IRVIN; Protocol Last Admin: 02/03/18 12:18 Dose: 5 mcg/min, 18.75 mls/hr Sodium Chloride (Normal Saline -) 1,000 mls @ 75 mls/hr IV ASDIR IRVIN Last Admin: 02/03/18 12:20 Dose: 75 mls/hr Ceftaroline Fosamil 200 mg/ (Dextrose) 100 mls @ 100 mls/hr IVPB Q12H IRVIN; Protocol Last Admin: 02/03/18 05:18 Dose: 100 mls/hr Insulin Aspart (Novolog Vial Sliding Scale -) 1 vial SQ ACHS IRVIN; Protocol Last Admin: 02/03/18 11:59 Dose: Not Given Mupirocin (Bactroban Ointment (For Decolonization) -) 1 applic NS BID IRVIN Stop: 02/06/18 21:59 Last Admin: 02/03/18 09:54 Dose: 1 applic - Objective Vital Signs: Vital Signs Temperature 98.2 F 02/03/18 14:00 Pulse Rate 105 H 02/03/18 14:25 Respiratory Rate 18 02/03/18 14:25 Blood Pressure 131/64 02/03/18 14:25 O2 Sat by Pulse Oximetry (%) 99 02/02/18 20:38 Constitutional: Yes: Calm Eyes: Yes: Conjunctiva Clear HENT: Yes: Atraumatic Cardiovascular: Yes: S1, S2 Respiratory: Yes: CTA Bilaterally Gastrointestinal: Yes: Soft Genitourinary: Yes: WNL Edema: Yes Edema: LLE: Trace, RLE: Trace Integumentary: Yes: Erythema, Rash, Venous Stasis Changes Wound/Incision: Yes: Open to air Neurological: Yes: Oriented Psychiatric: Yes: Oriented Labs: CBC, BMP 02/03/18 06:00 02/03/18 06:00 - ....Imaging Chest X-ray: Report Reviewed Problem List - Problems (1) ESRD (end stage renal disease) Code(s): N18.6 - END STAGE RENAL DISEASE (2) Diabetic foot ulcer Code(s): E11.621 - TYPE 2 DIABETES MELLITUS WITH FOOT ULCER; L97.509 - NON- PRESSURE CHRONIC ULCER OTH PRT UNSP FOOT W UNSP SEVERITY Qualifiers: Diabetic foot ulcer location: heel Diabetes mellitus type: other specified (including JADON) Laterality: right Non-pressure ulcer stage: unspecified non -pressure ulcer stage Qualified Code(s): E13.621 - Other specified diabetes mellitus with foot ulcer; L97.419 - Non-pressure chronic ulcer of right heel and midfoot with unspecified severity Assessment/Plan Current Medications Generic Name Dose Route Start Last Admin Trade Name Freq PRN Reason Stop Dose Admin Chlorhexidine Gluconate 1 applic 02/01/18 22:00 02/02/18 21:24 Hibiclens For Decolonization - TP 1 applic HS IRVIN Administration Collagenase 1 applic 02/02/18 10:00 02/03/18 11:24 Santyl - TP 1 applic DAILY IRVIN Administration Diphenhydramine HCl 25 mg 02/02/18 05:33 02/02/18 17:06 Benadryl Injection - IVPUSH 25 mg Q4H PRN Administration FOR ITCHING Heparin Sodium (Porcine) 5,000 unit 02/02/18 14:00 02/03/18 05:20 Heparin - SQ Not Given TID IRVIN Norepinephrine Bitartrate 8, 500 mls @ 18.75 mls/hr 02/01/18 19:15 02/03/18 12:18 000 mcg/ Dextrose IV 5 mcg/min TITR IRVIN 18.75 mls/hr Administration Protocol 5 MCG/MIN Sodium Chloride 1,000 mls @ 75 mls/hr 02/02/18 11:30 02/03/18 12:20 Normal Saline - IV 75 mls/hr ASDIR IRVIN Administration Ceftaroline Fosamil 200 mg/ 100 mls @ 100 mls/hr 02/03/18 06:00 02/03/18 05: 18 Dextrose IVPB 100 mls/hr Q12H IRVIN Administration Protocol Insulin Aspart 1 vial 02/01/18 16:30 02/03/18 11:59 Novolog Vial Sliding Scale - SQ Not Given ACHS IRVIN Protocol Mupirocin 1 applic 02/01/18 22:00 02/03/18 09:54 Bactroban Ointment (For Decolonization) - NS 02/06/18 21:59 1 applic BID IRVIN Administration Impression 1. ESRD 2. anemia 3. DFU 4. DM 5. sepsis 6. hypokalemia 7. hypotension 8. rash Plan - pt is tolerating HD - will not UF volume on HD - follow cultures - abx per ID - rash is improving - monitor wbc - surgery follow up - wound care - pressors to a MAP of 65 - HD AVF 4:15 abf 450 heparin 6000 with 1000 q hour, 2 k bath, [facility] [phone] - ICU monitoring - reviewed cxr - will follow Dr Frey
--- NOTE | 2018-02-03 17:43 | PN ---
Progress Note, Physician History of Present Illness: patient continues to be on pressors being dialysed still flushed says slightly better - Current Medication List Current Medications: Active Medications Chlorhexidine Gluconate (Hibiclens For Decolonization -) 1 applic TP HS IRVIN Last Admin: 02/02/18 21:24 Dose: 1 applic Collagenase (Santyl -) 1 applic TP DAILY IRVIN Last Admin: 02/03/18 11:24 Dose: 1 applic Diphenhydramine HCl (Benadryl Injection -) 25 mg IVPUSH Q4H PRN PRN Reason: FOR ITCHING Last Admin: 02/02/18 17:06 Dose: 25 mg Heparin Sodium (Porcine) (Heparin -) 5,000 unit SQ TID IRVIN Last Admin: 02/03/18 05:20 Dose: Not Given Norepinephrine Bitartrate 8, (000 mcg/ Dextrose) 500 mls @ 18.75 mls/hr IV TITR IRVIN; Protocol Last Admin: 02/03/18 12:18 Dose: 5 mcg/min, 18.75 mls/hr Sodium Chloride (Normal Saline -) 1,000 mls @ 75 mls/hr IV ASDIR IRVIN Last Admin: 02/03/18 12:20 Dose: 75 mls/hr Ceftaroline Fosamil 200 mg/ (Dextrose) 100 mls @ 100 mls/hr IVPB Q12H [facility]; Protocol Last Admin: 02/03/18 05:18 Dose: 100 mls/hr Insulin Aspart (Novolog Vial Sliding Scale -) 1 vial SQ ACHS [facility]; Protocol Last Admin: 02/03/18 11:59 Dose: Not Given Mupirocin (Bactroban Ointment (For Decolonization) -) 1 applic NS BID [facility] Stop: 02/06/18 21:59 Last Admin: 02/03/18 09:54 Dose: 1 applic - Objective Vital Signs: Vital Signs Temperature 98.2 F 02/03/18 14:00 Pulse Rate 110 H 02/03/18 16:40 Respiratory Rate 18 02/03/18 16:40 Blood Pressure 151/69 02/03/18 16:40 O2 Sat by Pulse Oximetry (%) 99 02/02/18 20:38 Constitutional: Yes: No Distress, Calm Neck: Yes: Supple, Trachea Midline Cardiovascular: Yes: Regular Rate and Rhythm Respiratory: Yes: Regular, CTA Bilaterally, On Nasal O2 Gastrointestinal: Yes: Normal Bowel Sounds, Soft Musculoskeletal: Yes: Muscle Pain, Other Extremities: Yes: Erythema, Other (wound vac in place) Integumentary: Yes: Other (flushing) Neurological: Yes: Alert, Oriented Labs: CBC, BMP 02/03/18 06:00 02/03/18 06:00 Assessment/Plan Problem List (1) Hypotension Code(s): I95.9 - HYPOTENSION, UNSPECIFIED (2) Diabetic foot ulcer Code(s): E11.621 - TYPE 2 DIABETES MELLITUS WITH FOOT ULCER; L97.509 - NON- PRESSURE CHRONIC ULCER OTH PRT UNSP FOOT W UNSP SEVERITY Qualifiers: Diabetic foot ulcer location: heel Diabetes mellitus type: other specified (including JADON) Laterality: right Non-pressure ulcer stage: unspecified non -pressure ulcer stage Qualified Code(s): E13.621 - Other specified diabetes mellitus with foot ulcer; L97.419 - Non-pressure chronic ulcer of right heel and midfoot with unspecified severity (3) ESRD (end stage renal disease) Code(s): N18.6 - END STAGE RENAL DISEASE Septic shock due to presumed LE diabetic foot ulcers. bilateral cellulitis of the leg plan continue abx ceftorline dialysis pressors close watch rest as per icu cc 40 min
--- NOTE | 2018-02-03 17:59 | PN ---
Teaching Attending Note Name of Resident: Vianca Da Silva ATTENDING PHYSICIAN STATEMENT I saw and evaluated the patient. I reviewed the resident's note and discussed the case with the resident. I agree with the resident's findings and plan as documented with exceptions below. SUBJECTIVE: Patient seen and examined. feels better, no burning or itching currently. No new symptoms otherwise. OBJECTIVE: Vital Signs Period Temp Pulse Resp BP Sys/Gutierrez Pulse Ox Last 24 Hr 98 F-101.7 F 96-116 14-24 80-151/42-70 99 Intake & Output 01/31/18 02/01/18 02/02/18 02/03/18 23:59 23:59 23:59 23:59 Intake Total 1400 2290 1120.8 Balance 1400 2290 1120.8 Weight 182 lb 230 lb 6.129 oz 228 lb 232 lb 8 oz General: sitting in bed in no acute distress Flushing improved Chest: CTAB, no rales or wheezing Abdomen:soft, NT, ND Extremities: Right foot wound vac, LLE dressing (Deferred exam) Home Medications Medication Instructions Recorded NK [No Known Home Medication] 01/31/18 Active Medications Chlorhexidine Gluconate (Hibiclens For Decolonization -) 1 applic TP HS IRVIN Last Admin: 02/02/18 21:24 Dose: 1 applic Collagenase (Santyl -) 1 applic TP DAILY IRVIN Last Admin: 02/03/18 11:24 Dose: 1 applic Diphenhydramine HCl (Benadryl Injection -) 25 mg IVPUSH Q4H PRN PRN Reason: FOR ITCHING Last Admin: 02/02/18 17:06 Dose: 25 mg Heparin Sodium (Porcine) (Heparin -) 5,000 unit SQ TID IRVIN Last Admin: 02/03/18 05:20 Dose: Not Given Norepinephrine Bitartrate 8, (000 mcg/ Dextrose) 500 mls @ 18.75 mls/hr IV TITR IRVIN; Protocol Last Admin: 02/03/18 12:18 Dose: 5 mcg/min, 18.75 mls/hr Sodium Chloride (Normal Saline -) 1,000 mls @ 75 mls/hr IV ASDIR IRVIN Last Admin: 02/03/18 12:20 Dose: 75 mls/hr Ceftaroline Fosamil 200 mg/ (Dextrose) 100 mls @ 100 mls/hr IVPB Q12H [facility]; Protocol Last Admin: 02/03/18 05:18 Dose: 100 mls/hr Insulin Aspart (Novolog Vial Sliding Scale -) 1 vial SQ ACHS [facility]; Protocol Last Admin: 02/03/18 11:59 Dose: Not Given Mupirocin (Bactroban Ointment (For Decolonization) -) 1 applic NS BID IRVIN Stop: 02/06/18 21:59 Last Admin: 02/03/18 09:54 Dose: 1 applic Laboratory Results - last 24 hr 02/02/18 02/03/18 02/03/18 17:04 05:16 06:00 WBC RBC Hgb Hct MCV MCH MCHC RDW Plt Count MPV Sodium Potassium Chloride Carbon Dioxide Anion Gap BUN Creatinine Creat Clearance w eGFR POC Glucometer 191.80413 164.84174 Random Glucose Hemoglobin A1c % 4.3 L D Calcium Phosphorus Magnesium Total Bilirubin AST ALT Alkaline Phosphatase Total Protein Albumin 02/03/18 02/03/18 02/03/18 06:00 06:00 11:41 WBC 21.9 H RBC 4.14 Hgb 12.0 Hct 37.7 MCV 91.2 MCH 29.0 MCHC 31.8 L RDW 15.7 Plt Count 152 MPV 8.8 Sodium 136 Potassium 3.3 L Chloride 100 Carbon Dioxide 22 D Anion Gap 14 BUN 32 H D Creatinine 10.8 H* Creat Clearance w eGFR 5.08 POC Glucometer 173.28833 Random Glucose 127 H D Hemoglobin A1c % Calcium 6.6 L* Phosphorus 5.0 H Magnesium 1.7 L Total Bilirubin 0.5 D AST 6 L D ALT 7 L D Alkaline Phosphatase 80 Total Protein 5.0 L Albumin 2.0 L 02/03/18 16:31 WBC RBC Hgb Hct MCV MCH MCHC RDW Plt Count MPV Sodium Potassium Chloride Carbon Dioxide Anion Gap BUN Creatinine Creat Clearance w eGFR POC Glucometer 134.76507 Random Glucose Hemoglobin A1c % Calcium Phosphorus Magnesium Total Bilirubin AST ALT Alkaline Phosphatase Total Protein Albumin Microbiology 01/31/18 17:19 Blood - Peripheral Venous Blood Culture - Preliminary NO GROWTH OBTAINED AFTER 72 HOURS, INCUBATION TO CONTINUE FOR 2 DAYS. 01/31/18 17:19 Blood - Peripheral Venous Blood Culture - Preliminary NO GROWTH OBTAINED AFTER 72 HOURS, INCUBATION TO CONTINUE FOR 2 DAYS. ASSESSMENT AND PLAN: 52 yom with PMHx of diabetes mellitus, depression, vancomycin allergy, wheelchair dependence, ESRD on hemodialysis for 3 years, right diabetic foot ulcers, and fecal incontinence admitted with non healing right foot diabetic ulcer with cellulitis -Septic shock/Non healing right foot diabetic ulcer with cellulitis, r/o abscess /osteomyelitis , s/p bedside debridement/wound vac 02/02 -?Drug reaction -ESRD on HD -Diabetes Mellitus -Depression Plan: Ceftaroline day 2, blood cx neg so far. ?wound cx sent. ID input noted. Taper levophed as tolerated. MRI LE when hemodynamics improve. Poditary/vascular surgery recs noted, bedside surgical debridement/wound vac 02/02. Xray with possible foreign body. PVR. ISS,patient denies being on home meds. HD done today. Psych input noted. DVTPPx with heparin Plan discussed with ICU, nursing, ID and podiatry. Total critical care time spent 40 min.
[2018-02-03] MEDS ORDERED: PT OWN MED DRAWER 7, Y5N ONE (18:01)
--- NOTE | 2018-02-03 20:22 | PN ---
Physical Exam: SUBJECTIVE: Patient seen and examined. Got debridement on L foot yesterday and wound vac on R foot. Still on levophed at 8mcgs. Tmax-101. Afebrile in am. Still feels burning sensation. Ceftaroline started yesterday after meropenem and clinda stopped. Unable to get MRI while on pressors. Receiving fluid at 100/ hr. Pt has no appetite for food. OBJECTIVE: Vital Signs Period Temp Pulse Resp BP Sys/Gutierrez Pulse Ox Last 24 Hr 98 F-101.7 F 96-116 14-24 80-151/42-70 99 Vital Signs Temp 100.1 F H 02/03/18 19:00 Pulse 103 H 02/03/18 19:00 Resp 22 02/03/18 19:00 BP 113/55 02/03/18 19:00 Pulse Ox 99 02/02/18 20:38 Intake & Output 02/02/18 02/03/18 02/03/18 23:59 11:59 23:59 Intake Total 1762 1120.8 1350 Balance 1762 1120.8 1350 Weight 105.46 kg Intake: IV 1392 780.8 1150 Levophed - 8,000 Mcg In 492 180.8 250 D5w - 492 ml @ 5 MCG/MIN 18.75 mls/hr IV TITR IRVIN Rx#:[id number] Normal Saline - 1,000 ml 900 600 900 @ 75 mls/hr IV ASDIR IRVIN Rx#:[id number] IVPB 250 100 200 Oral 120 240 Other: Voiding Method Diaper Diaper Bowel Movement No Yes: large brown stools Yes # Bowel Movements 1 2 Weight Measurement Method Built in [facility], [facility] 02/03/18 06:00 02/03/18 06:00 GENERAL: The patient is awake, alert, and fully oriented, in no acute respiratory distress. Reduced redness on face. LUNGS: Breath sounds equal, clear to auscultation bilaterally HEART: Regular rate and rhythm, S1, S2 without murmur. ABDOMEN: Soft, nontender, nondistended, normoactive bowel sounds EXTREMITIES:R foot with wound vac. L foot dressing dry and clean NEUROLOGICAL: AAOx3. No facial droop. Moves UE bilaterally. SKIN: Warm, dry, redness over bilateral LE extending above knees Laboratory Results - last 24 hr 02/02/18 02/03/18 02/03/18 17:04 05:16 06:00 WBC RBC Hgb Hct MCV MCH MCHC RDW Plt Count MPV Sodium Potassium Chloride Carbon Dioxide Anion Gap BUN Creatinine Creat Clearance w eGFR POC Glucometer 191.31169 164.11742 Random Glucose Hemoglobin A1c % 4.3 L D Calcium Phosphorus Magnesium Total Bilirubin AST ALT Alkaline Phosphatase Total Protein Albumin 02/03/18 02/03/18 02/03/18 06:00 06:00 11:41 WBC 21.9 H RBC 4.14 Hgb 12.0 Hct 37.7 MCV 91.2 MCH 29.0 MCHC 31.8 L RDW 15.7 Plt Count 152 MPV 8.8 Sodium 136 Potassium 3.3 L Chloride 100 Carbon Dioxide 22 D Anion Gap 14 BUN 32 H D Creatinine 10.8 H* Creat Clearance w eGFR 5.08 POC Glucometer 173.02664 Random Glucose 127 H D Hemoglobin A1c % Calcium 6.6 L* Phosphorus 5.0 H Magnesium 1.7 L Total Bilirubin 0.5 D AST 6 L D ALT 7 L D Alkaline Phosphatase 80 Total Protein 5.0 L Albumin 2.0 L 02/03/18 16:31 WBC RBC Hgb Hct MCV MCH MCHC RDW Plt Count MPV Sodium Potassium Chloride Carbon Dioxide Anion Gap BUN Creatinine Creat Clearance w eGFR POC Glucometer 134.11076 Random Glucose Hemoglobin A1c % Calcium Phosphorus Magnesium Total Bilirubin AST ALT Alkaline Phosphatase Total Protein Albumin Active Medications Generic Name Dose Route Start Last Admin Trade Name Freq PRN Reason Stop Dose Admin Chlorhexidine Gluconate 1 applic 02/01/18 22:00 02/02/18 21:24 Hibiclens For Decolonization - TP 1 applic HS IRVIN Administration Collagenase 1 applic 02/02/18 10:00 02/03/18 11:24 Santyl - TP 1 applic DAILY IRVIN Administration Diphenhydramine HCl 25 mg 02/02/18 05:33 02/02/18 17:06 Benadryl Injection - IVPUSH 25 mg Q4H PRN Administration FOR ITCHING Heparin Sodium (Porcine) 5,000 unit 02/02/18 14:00 02/03/18 18:08 Heparin - SQ 5,000 unit TID IRVIN Administration Norepinephrine Bitartrate 8, 500 mls @ 18.75 mls/hr 02/01/18 19:15 02/03/18 19:00 000 mcg/ Dextrose IV 4 mcg/min TITR IRVIN 15 mls/hr Titration Protocol 5 MCG/MIN Sodium Chloride 1,000 mls @ 75 mls/hr 02/02/18 11:30 02/03/18 12:20 Normal Saline - IV 75 mls/hr ASDIR IRVIN Administration Ceftaroline Fosamil 200 mg/ 100 mls @ 100 mls/hr 02/03/18 06:00 02/03/18 18: 09 Dextrose IVPB 100 mls/hr Q12H IRVIN Administration Protocol Insulin Aspart 1 vial 02/01/18 16:30 02/03/18 18:08 Novolog Vial Sliding Scale - SQ Not Given ACHS IRVIN Protocol Mupirocin 1 applic 02/01/18 22:00 02/03/18 09:54 Bactroban Ointment (For Decolonization) - NS 02/06/18 21:59 1 applic BID IRVIN Administration Ambulatory Orders NK [No Known Home Medication] 01/31/18 Current Medications Chlorhexidine Gluconate (Hibiclens For Decolonization -) 1 applic TP HS IRVIN Last Admin: 02/02/18 21:24 Dose: 1 applic Collagenase (Santyl -) 1 applic TP DAILY IRVIN Last Admin: 02/03/18 11:24 Dose: 1 applic Diphenhydramine HCl (Benadryl Injection -) 25 mg IVPUSH Q4H PRN PRN Reason: FOR ITCHING Last Admin: 02/02/18 17:06 Dose: 25 mg Heparin Sodium (Porcine) (Heparin -) 5,000 unit SQ TID IRVIN Last Admin: 02/03/18 18:08 Dose: 5,000 unit Norepinephrine Bitartrate 8, (000 mcg/ Dextrose) 500 mls @ 18.75 mls/hr IV TITR IRVIN; Protocol Last Titration: 02/03/18 19:00 Dose: 4 mcg/min, 15 mls/hr Sodium Chloride (Normal Saline -) 1,000 mls @ 75 mls/hr IV ASDIR IRVIN Last Admin: 02/03/18 12:20 Dose: 75 mls/hr Ceftaroline Fosamil 200 mg/ (Dextrose) 100 mls @ 100 mls/hr IVPB Q12H IRVIN; Protocol Last Admin: 02/03/18 18:09 Dose: 100 mls/hr Insulin Aspart (Novolog Vial Sliding Scale -) 1 vial SQ ACHS IRVIN; Protocol Last Admin: 02/03/18 18:08 Dose: Not Given Mupirocin (Bactroban Ointment (For Decolonization) -) 1 applic NS BID IRVIN Stop: 02/06/18 21:59 Last Admin: 02/03/18 09:54 Dose: 1 applic ASSESSMENT/PLAN: The patient is a 52 yo m w/ PMH DM (non compliant), psychiatric illness requiring admission, ESRD on HD (MWF) who was sent to the ED from the wound care clinic for evaluation of a worsening bilateral foot ulcers. #Septic shock On iv tylenol for fever, Likely secondary to foot ulcer (S), Local wound care - per podiatry IV normal saline @100ml/hr -HD for clearance only, no fluid removal levophed-titration to MAP of 65 (last documented at 3mcg) ICU level care #Generalized skin redness and warmth Resolving on ceftaroline No obvious rashes or skin sloughing Derm consult Pt notes it happens after AB use Previous reaction to vancomycin with skin sloughing Likely reaction to clindamycin 600mg, Zosyn and meropenem Pt received benadryl #DM bilateral foot ulcer - Likely source of infection -Pt seems to be reacting to Clindamycin 600mg, Zosyn and meropenem --ID consult- Dr Klein-apprec recs -Continue ceftaroline 600mg -Cont local wound mx per podiatry-Sent by Dr Terrazas -vascular surgery consult- Dr Villalobos-appreciate recs -MRI w/o contrast Rt foot and L foot to r/o osteo- will do MRI when more hemodynamically stable and off levophed -Iv tylenol for pain #Decubitus ulcer Documented by nurse Could also be source of sepsis #ESRD Hemodialysis MWF- received dialysis Dr Frey on board For reevaluation #DM Pt requiring insulin, could be response to sepsis, as Hgb A1c is 4, or pt has been having hypoglycemic episodes frequently -A1C -ISS -BGM -Hgb A1c-4 #History of depression, not on medications -was previously on zoloft, patient stopped taking it without MD instruction -Hx psych hospital admit in the past -psych consult- Dr Aleman #dispo -Continue ICU mx - Visit type - Emergency Visit Emergency Visit: Yes ED Registration Date: 01/31/18 Care time: The patient presented to the Emergency Department on the above date and was hospitalized for further evaluation of their emergent condition. - New Patient This patient is new to me today: No - Critical Care Critical Care patient: Yes Total Critical Care Time (in minutes): 45 Critical Care Statement: The care of this patient involved high complexity decision making to prevent further life threatening deterioration of the patient 's condition and/or to evaluate & treat vital organ system(s) failure or risk of failure. - Discharge Referral Referred to [facility] No
[2018-02-03] MEDS: CHLORHEXIDINE GLUCONATE 4% CLEANSER FOR DECOLONIZATION TP SCH (21:03)
[2018-02-04] MEDS ORDERED: HEMOQUE CONTROL SOLUTION ONE (01:31)
[2018-02-04] MEDS: HEPARIN NA (PORCINE) 5,000 UNITS/ML 1ML VIAL SQ SCH ×3 (05:10→21:30)
[2018-02-04] MEDS: CEFTAROLINE FOSAMIL ACETATE 200 MG in DEXTROSE 5%-WATER - 100 ML IVPB SCH ×2 (05:10→18:35)
[2018-02-04] MEDS: INSULIN SLIDING SCALE (NOVOLOG) 1 VIAL SQ SCH ×4 (06:03→21:31)
[2018-02-04 06:37] LABS: ALBUMIN 1.8 g/dl (3.4-5.0); ANION GAP 10 (8-16); BLOOD UREA NITROGEN 19 mg/dL (7-18); CALCIUM 7.3 mg/dL (8.5-10.1); CHLORIDE 102 mmol/L (98-107); CO2 27 mmol/L (21-32); GLUCOSE,RANDOM 99 mg/dL (74-106); MAGNESIUM 1.9 mg/dL (1.8-2.4); POTASSIUM 3.2 mmol/L (3.5-5.1); SODIUM 139 mmol/L (136-145)
[2018-02-04 06:41] LABS: ALK PHOS 71 U/L (45-117); BILIRUBIN,TOTAL 0.5 mg/dL (0.2-1.0); CREATININE 6.8 mg/dL (0.7-1.3); PHOSPHOROUS 2.8 mg/dL (2.5-4.9); SGOT/AST 4 U/L (15-37); SGPT/ALT 7 U/L (12-78); TOT PROT 4.5 g/dl (6.4-8.2)
[2018-02-04 08:26] LABS: BASO % 0.3 % (0-2.0); HEMATOCRIT 31.7 % (35.4-49); MCH 29.3 pg (25.7-33.7); MCHC 31.6 g/dl (32.0-35.9); MEAN CELL VOLUME 92.6 fl (80-96); MEAN PLT VOLUME 9.3 fl (7.5-11.1); MONO % 4.8 % (3.8-10.2); NEUT % 86.9 % (42.8-82.8); PLATELET COUNT 131 K/MM3 (134-434); RBC 3.43 M/mm3 (4.00-5.60); RDW 15.7 % (11.9-15.9); WHITE BLOOD COUNT 11.5 K/mm3 (4.0-10.0)
--- NOTE | 2018-02-04 08:58 | PN ---
Progress Note (short form) - Note Progress Note: Patient seen and examined in the ICU. Awake and alert. Feels better today. NE stopped at 4 AM. Denies CP or SOB. Intake & Output 02/01/18 02/02/18 02/03/18 02/04/18 23:59 23:59 23:59 23:59 Intake Total 1400 2290 2800.8 782.5 Balance 1400 2290 2800.8 782.5 Weight 230 lb 6.129 oz 228 lb 232 lb 8 oz 235 lb 9.6 oz Last Vital Signs Temp Pulse Resp BP Pulse Ox 98.5 F 100 H 21 106/54 99 02/04/18 06:00 02/04/18 08:00 02/04/18 08:00 02/04/18 08:00 02/03/18 20:40 Active Medications Chlorhexidine Gluconate (Hibiclens For Decolonization -) 1 applic TP HS IRVIN Last Admin: 02/03/18 21:03 Dose: 1 applic Collagenase (Santyl -) 1 applic TP DAILY IRVIN Last Admin: 02/03/18 11:24 Dose: 1 applic Diphenhydramine HCl (Benadryl Injection -) 25 mg IVPUSH Q4H PRN PRN Reason: FOR ITCHING Last Admin: 02/02/18 17:06 Dose: 25 mg Heparin Sodium (Porcine) (Heparin -) 5,000 unit SQ TID IRVIN Last Admin: 02/04/18 05:10 Dose: 5,000 unit Norepinephrine Bitartrate 8, (000 mcg/ Dextrose) 500 mls @ 18.75 mls/hr IV TITR IRVIN; Protocol Last Titration: 02/04/18 04:00 Dose: 0 mcg/min, 0 mls/hr Ceftaroline Fosamil 200 mg/ (Dextrose) 100 mls @ 100 mls/hr IVPB Q12H IRVIN; Protocol Last Admin: 02/04/18 05:10 Dose: 100 mls/hr Insulin Aspart (Novolog Vial Sliding Scale -) 1 vial SQ ACHS IRVIN; Protocol Last Admin: 02/04/18 06:03 Dose: Not Given Mupirocin (Bactroban Ointment (For Decolonization) -) 1 applic NS BID IRVIN Stop: 02/06/18 21:59 Last Admin: 02/03/18 21:03 Dose: 1 applic Constitutional: Yes: Well Nourished, No Distress, Calm, Obese Exam per vascular yesterday Integumentary: Yes: Erythema Wound/Incision: Yes: Other (Dressing intact, pale wound bed. small amt purulent drainage) Labs: Laboratory Results - last 24 hr 02/03/18 02/03/18 02/04/18 11:41 16:31 05:29 WBC RBC Hgb Hct MCV MCH MCHC RDW Plt Count MPV Absolute Neuts (auto) Neutrophils % Lymphocytes % Monocytes % Eosinophils % Basophils % Nucleated RBC % Sodium Potassium Chloride Carbon Dioxide Anion Gap BUN Creatinine Creat Clearance w eGFR POC Glucometer 173.19883 134.10396 127.69558 Random Glucose Calcium Phosphorus Magnesium Total Bilirubin AST ALT Alkaline Phosphatase Total Protein Albumin 02/04/18 02/04/18 05:30 05:30 WBC 11.5 H D RBC 3.43 L Hgb 10.0 L D Hct 31.7 L D MCV 92.6 MCH 29.3 MCHC 31.6 L RDW 15.7 Plt Count 131 L MPV 9.3 Absolute Neuts (auto) 10.0 Neutrophils % 86.9 H Lymphocytes % 6.0 L D Monocytes % 4.8 Eosinophils % 2.0 Basophils % 0.3 Nucleated RBC % 0 Sodium 139 Potassium 3.2 L Chloride 102 Carbon Dioxide 27 D Anion Gap 10 BUN 19 H D Creatinine 6.8 H D Creat Clearance w eGFR 8.66 POC Glucometer Random Glucose 99 D Calcium 7.3 L Phosphorus 2.8 D Magnesium 1.9 Total Bilirubin 0.5 AST 4 L D ALT 7 L Alkaline Phosphatase 71 Total Protein 4.5 L Albumin 1.8 L Problem List (1) Hypotension Code(s): I95.9 - HYPOTENSION, UNSPECIFIED (2) Diabetic foot ulcer Code(s): E11.621 - TYPE 2 DIABETES MELLITUS WITH FOOT ULCER; L97.509 - NON- PRESSURE CHRONIC ULCER OTH PRT UNSP FOOT W UNSP SEVERITY Qualifiers: Diabetic foot ulcer location: heel Diabetes mellitus type: other specified (including JADON) Laterality: right Non-pressure ulcer stage: unspecified non -pressure ulcer stage Qualified Code(s): E13.621 - Other specified diabetes mellitus with foot ulcer; L97.419 - Non-pressure chronic ulcer of right heel and midfoot with unspecified severity (3) ESRD (end stage renal disease) Code(s): N18.6 - END STAGE RENAL DISEASE Assessment/Plan Septic shock due to presumed LE diabetic foot ulcers. Wound care per surgical team ABX per ID Follow pending cultures O2 as needed VTE prophylaxis Monitor off pressors Replete lytes IVF Glycemic control MRI Dr Alonso Critical care time spent in reviewing chart, evaluating patient and formulating plan - 36 minutes.
--- NOTE | 2018-02-04 09:14 | PN ---
Physical Exam: SUBJECTIVE: Patient states he's feeling better in general despite still feeling skin burning. Off pressor since 4am per nurse. No acute events overnight OBJECTIVE: Vital Signs Period Temp Pulse Resp BP Sys/Gutierrez Pulse Ox Last 24 Hr 98 F-100.1 F 95-110 14-22 80-151/42-70 99 GENERAL: The patient is awake, alert, and fully oriented, in no acute distress. LUNGS: CTAB HEART: RRR, S1, S2 without murmur, rub or gallop. ABDOMEN: Soft, nontender, nondistended, normoactive bowel sounds, no guarding, no rebound EXTREMITIES: refused exam CBCD WBC 11.5 K/mm3 (4.0-10.0) H D 02/04/18 05:30 RBC 3.43 M/mm3 (4.00-5.60) L 02/04/18 05:30 Hgb 10.0 GM/dL (11.7-16.9) L D 02/04/18 05:30 Hct 31.7 % (35.4-49) L D 02/04/18 05:30 MCV 92.6 fl (80-96) 02/04/18 05:30 MCHC 31.6 g/dl (32.0-35.9) L 02/04/18 05:30 RDW 15.7 % (11.9-15.9) 02/04/18 05:30 Plt Count 131 K/MM3 (134-434) L 02/04/18 05:30 MPV 9.3 fl (7.5-11.1) 02/04/18 05:30 CMP Sodium 139 mmol/L (136-145) 02/04/18 05:30 Potassium 3.2 mmol/L (3.5-5.1) L 02/04/18 05:30 Chloride 102 mmol/L (98-107) 02/04/18 05:30 Carbon Dioxide 27 mmol/L (21-32) D 02/04/18 05:30 Anion Gap 10 (8-16) 02/04/18 05:30 BUN 19 mg/dL (7-18) H D 02/04/18 05:30 Creatinine 6.8 mg/dL (0.7-1.3) H D 02/04/18 05:30 Creat Clearance w eGFR 8.66 (>60) 02/04/18 05:30 Calcium 7.3 mg/dL (8.5-10.1) L 02/04/18 05:30 Total Bilirubin 0.5 mg/dL (0.2-1.0) 02/04/18 05:30 AST 4 U/L (15-37) L D 02/04/18 05:30 ALT 7 U/L (12-78) L 02/04/18 05:30 Alkaline Phosphatase 71 U/L (45-117) 02/04/18 05:30 Total Protein 4.5 g/dl (6.4-8.2) L 02/04/18 05:30 Albumin 1.8 g/dl (3.4-5.0) L 02/04/18 05:30 ASSESSMENT/PLAN: 52 yo M h/o dm, esrd on hd, diabetic foot ulcers in R leg, fecal incontinence, depression, wheelchair bound admitted to the hospital for non-healing R foot diabetic ulcer with cellulitis and later found to have septic shock. 1 Septic shock 2/2 infected R foot diabetic ulcer + cellulitis: ceftroline day 3 , negative cultures thus far, maintain wound vacc and will cont. work up to r/o OM, for MRI hopefully today off pressor 2 ESRD on HD: s/p dialysis yesterday, his schedule is MWF, nephro onboard 3 Skin rash/burning: likely allergy from abx, sx improving and no sign of anaphylaxis, cont. to monitor, awaiting dermatology input 4 DM: BGM and iss 5 Depression: mood stable, evaluated by psy. dvt ppx: heparin diet: diabetic dispo: transfer to med-surg Medhat Stevens PGY2 [phone] Visit type - Emergency Visit Emergency Visit: No - New Patient This patient is new to me today: No - Critical Care Critical Care patient: Yes Total Critical Care Time (in minutes): 35 Critical Care Statement: The care of this patient involved high complexity decision making to prevent further life threatening deterioration of the patient 's condition and/or to evaluate & treat vital organ system(s) failure or risk of failure.
[2018-02-04] MEDS ORDERED: POTASSIUM CHLORIDE ORAL LIQUID 20 MEQ/15 ML PO ONE (09:30)
--- NOTE | 2018-02-04 09:48 | PN ---
Progress Note (short form) - Note Progress Note: Pt seen in bed in ICU. VSS. Seeing for b/l wounds. Feeling better. wounds b/l, heels, culture results no growth, +mal odor right, +localized cellulitis, pseudomonas, klebsiella, proteus, staph wbc=21.9, cudj8z=8.3 r/o om r/o pvd r/o dm Grade 2-3 wounds b/l feet Awaiting results of MRI. Vac to right heel pressure of 125 change q48hrs. Santyl to all other wounds. Will follow.
--- NOTE | 2018-02-04 09:49 | PN ---
Teaching Attending Note Name of Resident: Medhat Stevens ATTENDING PHYSICIAN STATEMENT I saw and evaluated the patient. I reviewed the resident's note and discussed the case with the resident. I agree with the resident's findings and plan as documented with exceptions below. SUBJECTIVE: Patient seen and examined. feels better, no more burning/itching or dizziness. OBJECTIVE: Vital Signs Period Temp Pulse Resp BP Sys/Gutierrez Pulse Ox Last 24 Hr 98 F-100.1 F 95-110 14-22 80-151/42-70 99 Intake & Output 02/01/18 02/02/18 02/03/18 02/04/18 23:59 23:59 23:59 23:59 Intake Total 1400 2290 2800.8 782.5 Balance 1400 2290 2800.8 782.5 Weight 230 lb 6.129 oz 228 lb 232 lb 8 oz 235 lb 9.6 oz General: sitting in bed, having breakfast, no acute distress Chest: cTAB, no rales or wheezing Abdomen:soft, obese, NT Extremities: right wound vac with dressing, left wound dressing (deferred exam per patient request), Home Medications Medication Instructions Recorded NK [No Known Home Medication] 01/31/18 Active Medications Chlorhexidine Gluconate (Hibiclens For Decolonization -) 1 applic TP HS IRVIN Last Admin: 02/03/18 21:03 Dose: 1 applic Collagenase (Santyl -) 1 applic TP DAILY IRVIN Last Admin: 02/03/18 11:24 Dose: 1 applic Diphenhydramine HCl (Benadryl Injection -) 25 mg IVPUSH Q4H PRN PRN Reason: FOR ITCHING Last Admin: 02/02/18 17:06 Dose: 25 mg Heparin Sodium (Porcine) (Heparin -) 5,000 unit SQ TID IRVIN Last Admin: 02/04/18 05:10 Dose: 5,000 unit Norepinephrine Bitartrate 8, (000 mcg/ Dextrose) 500 mls @ 18.75 mls/hr IV TITR IRVIN; Protocol Last Titration: 02/04/18 04:00 Dose: 0 mcg/min, 0 mls/hr Ceftaroline Fosamil 200 mg/ (Dextrose) 100 mls @ 100 mls/hr IVPB Q12H IRVIN; Protocol Last Admin: 02/04/18 05:10 Dose: 100 mls/hr Insulin Aspart (Novolog Vial Sliding Scale -) 1 vial SQ ACHS IRVIN; Protocol Last Admin: 02/04/18 06:03 Dose: Not Given Mupirocin (Bactroban Ointment (For Decolonization) -) 1 applic NS BID IRVIN Stop: 02/06/18 21:59 Last Admin: 02/03/18 21:03 Dose: 1 applic Laboratory Results - last 24 hr 02/03/18 02/03/18 02/04/18 11:41 16:31 05:29 WBC RBC Hgb Hct MCV MCH MCHC RDW Plt Count MPV Absolute Neuts (auto) Neutrophils % Lymphocytes % Monocytes % Eosinophils % Basophils % Nucleated RBC % Sodium Potassium Chloride Carbon Dioxide Anion Gap BUN Creatinine Creat Clearance w eGFR POC Glucometer 173.33113 134.71537 127.01884 Random Glucose Calcium Phosphorus Magnesium Total Bilirubin AST ALT Alkaline Phosphatase Total Protein Albumin 02/04/18 02/04/18 05:30 05:30 WBC 11.5 H D RBC 3.43 L Hgb 10.0 L D Hct 31.7 L D MCV 92.6 MCH 29.3 MCHC 31.6 L RDW 15.7 Plt Count 131 L MPV 9.3 Absolute Neuts (auto) 10.0 Neutrophils % 86.9 H Lymphocytes % 6.0 L D Monocytes % 4.8 Eosinophils % 2.0 Basophils % 0.3 Nucleated RBC % 0 Sodium 139 Potassium 3.2 L Chloride 102 Carbon Dioxide 27 D Anion Gap 10 BUN 19 H D Creatinine 6.8 H D Creat Clearance w eGFR 8.66 POC Glucometer Random Glucose 99 D Calcium 7.3 L Phosphorus 2.8 D Magnesium 1.9 Total Bilirubin 0.5 AST 4 L D ALT 7 L Alkaline Phosphatase 71 Total Protein 4.5 L Albumin 1.8 L ASSESSMENT AND PLAN: 52 yom with PMHx of diabetes mellitus, depression, vancomycin allergy, wheelchair dependence, ESRD on hemodialysis for 3 years, right diabetic foot ulcers, and fecal incontinence admitted with non healing right foot diabetic ulcer with cellulitis -Septic shock/Non healing right foot diabetic ulcer with cellulitis, r/o abscess /osteomyelitis , s/p bedside debridement/wound vac 02/02 -?Drug reaction -ESRD on HD -Diabetes Mellitus -Depression Plan: Ceftaroline day 3, blood cx neg so far. ?wound cx sent. ID input noted. OFf levophen, monitor. MRI bilateral lower extremities as tolerated. Poditary/vascular surgery recs noted, bedside surgical debridement/wound vac 02/02. Xray with possible foreign body. PVR. ISS,patient denies being on home meds. HD done 02/03. Psych input noted. DVTPPx with heparin Plan discussed with patient and nursing, all questions answered. Total critical care time spent 40 min.
[2018-02-04] MEDS: MUPIROCIN 2% TOPICAL OINTMENT FOR DECOLONIZATION NS SCH ×2 (10:50→21:30)
[2018-02-04] MEDS: COLLAGENASE CLOSTRIDIUM HIST. 30 GRAMS TUBE TP SCH (10:50)
--- NOTE | 2018-02-04 14:58 | PN ---
Progress Note, Physician History of Present Illness: Pt seen and examined at bedside. He feels that the rash is improved. He denies shortness of breath. He is off of pressors. - Current Medication List Current Medications: Active Medications Chlorhexidine Gluconate (Hibiclens For Decolonization -) 1 applic TP HS IRVIN Last Admin: 02/03/18 21:03 Dose: 1 applic Collagenase (Santyl -) 1 applic TP DAILY IRVIN Last Admin: 02/04/18 10:50 Dose: 1 applic Diphenhydramine HCl (Benadryl Injection -) 25 mg IVPUSH Q4H PRN PRN Reason: FOR ITCHING Last Admin: 02/02/18 17:06 Dose: 25 mg Heparin Sodium (Porcine) (Heparin -) 5,000 unit SQ TID IRVIN Last Admin: 02/04/18 05:10 Dose: 5,000 unit Norepinephrine Bitartrate 8, (000 mcg/ Dextrose) 500 mls @ 18.75 mls/hr IV TITR IRVIN; Protocol Last Titration: 02/04/18 04:00 Dose: 0 mcg/min, 0 mls/hr Ceftaroline Fosamil 200 mg/ (Dextrose) 100 mls @ 100 mls/hr IVPB Q12H IRVIN; Protocol Last Admin: 02/04/18 05:10 Dose: 100 mls/hr Insulin Aspart (Novolog Vial Sliding Scale -) 1 vial SQ ACHS IRVIN; Protocol Last Admin: 02/04/18 11:58 Dose: Not Given Mupirocin (Bactroban Ointment (For Decolonization) -) 1 applic NS BID IRVIN Stop: 02/06/18 21:59 Last Admin: 02/04/18 10:50 Dose: 1 applic - Objective Vital Signs: Vital Signs Temperature 98.6 F 02/04/18 10:00 Pulse Rate 98 H 02/04/18 12:00 Respiratory Rate 21 02/04/18 12:00 Blood Pressure 106/56 02/04/18 12:00 O2 Sat by Pulse Oximetry (%) 99 02/04/18 09:00 Constitutional: Yes: Calm Eyes: Yes: Conjunctiva Clear HENT: Yes: Atraumatic Neck: Yes: Supple Cardiovascular: Yes: S1, S2 Respiratory: Yes: CTA Bilaterally Gastrointestinal: Yes: Normal Bowel Sounds, Soft Genitourinary: Yes: WNL Edema: Yes Edema: LLE: 1+, RLE: 1+ Integumentary: Yes: Erythema Wound/Incision: Yes: Dressing Dry and Intact Psychiatric: Yes: Oriented Labs: CBC, BMP 02/04/18 05:30 02/04/18 05:30 Problem List - Problems (1) ESRD (end stage renal disease) Code(s): N18.6 - END STAGE RENAL DISEASE (2) Diabetic foot ulcer Code(s): E11.621 - TYPE 2 DIABETES MELLITUS WITH FOOT ULCER; L97.509 - NON- PRESSURE CHRONIC ULCER OTH PRT UNSP FOOT W UNSP SEVERITY Qualifiers: Diabetic foot ulcer location: heel Diabetes mellitus type: other specified (including JADON) Laterality: right Non-pressure ulcer stage: unspecified non -pressure ulcer stage Qualified Code(s): E13.621 - Other specified diabetes mellitus with foot ulcer; L97.419 - Non-pressure chronic ulcer of right heel and midfoot with unspecified severity Assessment/Plan Current Medications Generic Name Dose Route Start Last Admin Trade Name Freq PRN Reason Stop Dose Admin Chlorhexidine Gluconate 1 applic 02/01/18 22:00 02/03/18 21:03 Hibiclens For Decolonization - TP 1 applic HS IRVIN Administration Collagenase 1 applic 02/02/18 10:00 02/04/18 10:50 Santyl - TP 1 applic DAILY IRVIN Administration Diphenhydramine HCl 25 mg 02/02/18 05:33 02/02/18 17:06 Benadryl Injection - IVPUSH 25 mg Q4H PRN Administration FOR ITCHING Heparin Sodium (Porcine) 5,000 unit 02/02/18 14:00 02/04/18 05:10 Heparin - SQ 5,000 unit TID IRVIN Administration Norepinephrine Bitartrate 8, 500 mls @ 18.75 mls/hr 02/01/18 19:15 02/04/18 04:00 000 mcg/ Dextrose IV 0 mcg/min TITR IRVIN 0 mls/hr Titration Protocol 5 MCG/MIN Ceftaroline Fosamil 200 mg/ 100 mls @ 100 mls/hr 02/03/18 06:00 02/04/18 05: 10 Dextrose IVPB 100 mls/hr Q12H IRVIN Administration Protocol Insulin Aspart 1 vial 02/01/18 16:30 02/04/18 11:58 Novolog Vial Sliding Scale - SQ Not Given ACHS [facility] Protocol Mupirocin 1 applic 02/01/18 22:00 02/04/18 10:50 Bactroban Ointment (For Decolonization) - NS 02/06/18 21:59 1 applic BID IRVIN Administration Impression 1. ESRD 2. anemia 3. DFU 4. DM 5. sepsis 6. hypokalemia 7. hypotension 8. rash Plan - will arrange for HD in am - monitor bp and use pressors as needed - wound care to legs - abx per ID - HD AVF 4:15 abf 450 heparin 6000 with 1000 q hour, 2 k bartley, [facility] [phone] - ICU monitoring - will follow Dr Frey
[2018-02-04] MEDS ORDERED: SODIUM CHLORIDE 250 ML IV PRN (14:59)
--- NOTE | 2018-02-04 15:14 | PN ---
Progress Note, Physician History of Present Illness: Pt seen and examined. Events noted. Labs reviewed. Pt states he is no longer itching, feeling "much better". Now off vasopressors. Noted to have loose stools. - Current Medication List Current Medications: Active Medications Chlorhexidine Gluconate (Hibiclens For Decolonization -) 1 applic TP HS IRVIN Last Admin: 02/03/18 21:03 Dose: 1 applic Collagenase (Santyl -) 1 applic TP DAILY IRVIN Last Admin: 02/04/18 10:50 Dose: 1 applic Diphenhydramine HCl (Benadryl Injection -) 25 mg IVPUSH Q4H PRN PRN Reason: FOR ITCHING Last Admin: 02/02/18 17:06 Dose: 25 mg Heparin Sodium (Porcine) (Heparin -) 5,000 unit SQ TID IRVIN Last Admin: 02/04/18 05:10 Dose: 5,000 unit Norepinephrine Bitartrate 8, (000 mcg/ Dextrose) 500 mls @ 18.75 mls/hr IV TITR IRVIN; Protocol Last Titration: 02/04/18 04:00 Dose: 0 mcg/min, 0 mls/hr Ceftaroline Fosamil 200 mg/ (Dextrose) 100 mls @ 100 mls/hr IVPB Q12H [facility]; Protocol Last Admin: 02/04/18 05:10 Dose: 100 mls/hr Sodium Chloride (Normal Saline -) 250 mls @ 3,000 mls/hr IV PRN PRN PRN Reason: Hypotension during Dialysis Stop: 02/05/18 14:59 Insulin Aspart (Novolog Vial Sliding Scale -) 1 vial SQ ACHS [facility]; Protocol Last Admin: 02/04/18 11:58 Dose: Not Given Mupirocin (Bactroban Ointment (For Decolonization) -) 1 applic NS BID [facility] Stop: 02/06/18 21:59 Last Admin: 02/04/18 10:50 Dose: 1 applic - Objective Vital Signs: Vital Signs Temperature 98.6 F 02/04/18 10:00 Pulse Rate 98 H 02/04/18 12:00 Respiratory Rate 21 02/04/18 12:00 Blood Pressure 106/56 02/04/18 12:00 O2 Sat by Pulse Oximetry (%) 99 02/04/18 09:00 Constitutional: Yes: No Distress, Calm Neck: Yes: Supple Cardiovascular: Yes: Tachycardia Respiratory: Yes: Regular Gastrointestinal: Yes: Normal Bowel Sounds, Soft Integumentary: Yes: Erythema (generalized erythema, mild desquamation), Other (b /l LE erythema, Rt heel wound vac in place) Neurological: Yes: Alert Labs: CBC, BMP 02/04/18 05:30 02/04/18 05:30 Microbiology 01/31/18 17:19 Blood - Peripheral Venous Blood Culture - Preliminary NO GROWTH OBTAINED AFTER 72 HOURS, INCUBATION TO CONTINUE FOR 2 DAYS. 01/31/18 17:19 Blood - Peripheral Venous Blood Culture - Preliminary NO GROWTH OBTAINED AFTER 72 HOURS, INCUBATION TO CONTINUE FOR 2 DAYS. Problem List - Problems (1) Diabetic foot ulcer Code(s): E11.621 - TYPE 2 DIABETES MELLITUS WITH FOOT ULCER; L97.509 - NON- PRESSURE CHRONIC ULCER OTH PRT UNSP FOOT W UNSP SEVERITY Qualifiers: Diabetic foot ulcer location: heel Diabetes mellitus type: other specified (including JADON) Laterality: right Non-pressure ulcer stage: unspecified non -pressure ulcer stage Qualified Code(s): E13.621 - Other specified diabetes mellitus with foot ulcer; L97.419 - Non-pressure chronic ulcer of right heel and midfoot with unspecified severity (2) ESRD (end stage renal disease) Code(s): N18.6 - END STAGE RENAL DISEASE (3) Hypotension Code(s): I95.9 - HYPOTENSION, UNSPECIFIED Assessment/Plan Diabetic foot ulcer/LE cellulitis Rt heel wound vac Presumed Septic shock Generalized erythema/ Rash possibly due to previous antibiotics ESRD on HD diarrhea Leukocytosis - improved -- cont. Ceftaroline for now and monitor -- now off vasopressors -- send stool for C.diff testing -- continue monitor vitals, rest of care per ICU pt currently alert, afebrile cc: 40 min
[2018-02-04] MEDS: CHLORHEXIDINE GLUCONATE 4% CLEANSER FOR DECOLONIZATION TP SCH (21:30)
[2018-02-05] MEDS ORDERED: HEMOQUE TEST 1 EACH EACH ONE (01:10)
[2018-02-05] MEDS ORDERED: HEMOQUE CONTROL SOLUTION ONE (01:18)
[2018-02-05] MEDS: CEFTAROLINE FOSAMIL ACETATE 200 MG in DEXTROSE 5%-WATER - 100 ML IVPB SCH ×2 (05:24→17:49)
[2018-02-05] MEDS: HEPARIN NA (PORCINE) 5,000 UNITS/ML 1ML VIAL SQ SCH ×3 (05:24→23:23)
[2018-02-05 06:41] LABS: HBSAG SCREEN Negative (Negative); HEP B CORE AB, TOT Positive (Negative)
[2018-02-05] MEDS: INSULIN SLIDING SCALE (NOVOLOG) 1 VIAL SQ SCH ×4 (06:44→22:00)
--- NOTE | 2018-02-05 09:11 | PN ---
Progress Note (short form) - Note Progress Note: Patient seen and examined in the ICU. Awake and alert. Feels overall better today. Remains of pressors. Denies CP or SOB. Reports diarrhea with any form of oral intake. C Diff sent and is pending. Intake & Output 02/02/18 02/03/18 02/04/18 02/05/18 23:59 23:59 23:59 23:59 Intake Total 2290 2800.8 1782.5 220 Output Total 100 Balance 2290 2800.8 1682.5 220 Weight 228 lb 232 lb 8 oz 235 lb 9.6 oz 226 lb 1.6 oz Last Vital Signs Temp Pulse Resp BP Pulse Ox 98.8 F 100 H 16 132/80 99 02/05/18 06:00 02/05/18 08:00 02/05/18 08:00 02/05/18 08:00 02/04/18 21:00 Active Medications Chlorhexidine Gluconate (Hibiclens For Decolonization -) 1 applic TP HS IRVIN Last Admin: 02/04/18 21:30 Dose: 1 applic Collagenase (Santyl -) 1 applic TP DAILY [facility] Last Admin: 02/04/18 10:50 Dose: 1 applic Diphenhydramine HCl (Benadryl Injection -) 25 mg IVPUSH Q4H PRN PRN Reason: FOR ITCHING Last Admin: 02/02/18 17:06 Dose: 25 mg Heparin Sodium (Porcine) (Heparin -) 5,000 unit SQ TID IRVIN Last Admin: 02/05/18 05:24 Dose: 5,000 unit Ceftaroline Fosamil 200 mg/ (Dextrose) 100 mls @ 100 mls/hr IVPB Q12H [facility]; Protocol Last Admin: 02/05/18 05:24 Dose: 100 mls/hr Sodium Chloride (Normal Saline -) 250 mls @ 3,000 mls/hr IV PRN PRN PRN Reason: Hypotension during Dialysis Stop: 02/05/18 14:59 Insulin Aspart (Novolog Vial Sliding Scale -) 1 vial SQ ACHS [facility]; Protocol Last Admin: 02/05/18 06:44 Dose: Not Given Mupirocin (Bactroban Ointment (For Decolonization) -) 1 applic NS BID [facility] Stop: 02/06/18 21:59 Last Admin: 02/04/18 21:30 Dose: 1 applic Constitutional: Yes: NAD Eyes: Yes: Conjunctiva Clear HENT: Yes: Atraumatic Cardiovascular: Yes: S1, S2 Respiratory: Yes: On Nasal O2 Gastrointestinal: Yes: Soft Genitourinary: Yes: WNL Musculoskeletal: Yes: WNL Edema: Yes Edema: LLE: 1+, RLE: 1+ Integumentary: Yes: Erythema, Tattoos Neurological: Yes: Oriented Psychiatric: Yes: Oriented Integumentary: Yes: No Erythema Wound/Incision: Yes: Dressing intact Labs: Laboratory Results - last 24 hr 02/03/18 02/03/18 02/04/18 13:30 13:30 11:56 POC Glucometer 131.35301 Hepatitis A Ab Total Negative Hep Bs Antigen Negative Hep Bs Antibody Non reactive Hep B Core Total Ab Positive H Hep C Ab Diagnostic 0.1 Liver Fibrosis Interp 02/04/18 18:33 POC Glucometer 139.31669 Hepatitis A Ab Total Hep Bs Antigen Hep Bs Antibody Hep B Core Total Ab Hep C Ab Diagnostic Liver Fibrosis Interp Problem List (1) Hypotension Code(s): I95.9 - HYPOTENSION, UNSPECIFIED (2) Diabetic foot ulcer Code(s): E11.621 - TYPE 2 DIABETES MELLITUS WITH FOOT ULCER; L97.509 - NON- PRESSURE CHRONIC ULCER OTH PRT UNSP FOOT W UNSP SEVERITY Qualifiers: Diabetic foot ulcer location: heel Diabetes mellitus type: other specified (including JADON) Laterality: right Non-pressure ulcer stage: unspecified non -pressure ulcer stage Qualified Code(s): E13.621 - Other specified diabetes mellitus with foot ulcer; L97.419 - Non-pressure chronic ulcer of right heel and midfoot with unspecified severity (3) ESRD (end stage renal disease) Code(s): N18.6 - END STAGE RENAL DISEASE Assessment/Plan Septic shock due to LE diabetic foot ulcers. Wound care per surgical team ABX per ID Follow pending cultures O2 as needed VTE prophylaxis Monitor off pressors Replete lytes Glycemic control Dr Alonso Critical care time spent in reviewing chart, evaluating patient and formulating plan - 36 minutes.
[2018-02-05] MEDS: MUPIROCIN 2% TOPICAL OINTMENT FOR DECOLONIZATION NS SCH ×2 (09:41→23:24)
[2018-02-05] MEDS: COLLAGENASE CLOSTRIDIUM HIST. 30 GRAMS TUBE TP SCH (09:42)
[2018-02-05] MEDS ORDERED: POTASSIUM CHLORIDE TABS 20 MEQ TABLET.ER (FP) PO ONE (10:00)
--- NOTE | 2018-02-05 10:26 | PN ---
Physical Exam: SUBJECTIVE: Patient seen and examined, feels better no burning, dizziness, or itching. Reports scaling of his skin from antibiotics, Right hand swelling, no pain/fevers or chills. Overall feels better OBJECTIVE: Vital Signs Period Temp Pulse Resp BP Sys/Gutierrez Pulse Ox Last 24 Hr 98.5 F-99.2 F 92-107 12-21 90-132/46-80 99 General: sitting in bed in no acute distress Chest: no rales or wheezing Abdomen: soft, NT Extremities: right wound vac, left wound dressing, surrounding generalized skin flushing/erythema improved. right hand swelling with mild erythema, no pain on active or passive movements Skin: excoriation Laboratory Results - last 24 hr 02/03/18 02/03/18 02/04/18 13:30 13:30 18:33 WBC RBC Hgb Hct MCV MCH MCHC RDW Plt Count MPV Absolute Neuts (auto) Neutrophils % Lymphocytes % Monocytes % Eosinophils % Basophils % Nucleated RBC % Sodium Potassium Chloride Carbon Dioxide Anion Gap BUN Creatinine Creat Clearance w eGFR POC Glucometer 139.84734 Random Glucose Calcium Phosphorus Magnesium Total Bilirubin AST ALT Alkaline Phosphatase Total Protein Albumin Hepatitis A Ab Total Negative Hep Bs Antigen Negative Hep Bs Antibody Non reactive Hep B Core Total Ab Positive H Hep C Ab Diagnostic 0.1 Liver Fibrosis Interp 02/05/18 02/05/18 02/05/18 05:56 10:18 10:18 WBC 6.4 D RBC 3.51 L Hgb 10.3 L Hct 32.2 L MCV 91.9 MCH 29.2 MCHC 31.8 L RDW 15.7 Plt Count 114 L MPV 8.4 Absolute Neuts (auto) 4.9 Neutrophils % 76.2 Lymphocytes % 15.4 D Monocytes % 5.3 Eosinophils % 2.7 Basophils % 0.4 Nucleated RBC % 0 Sodium 138 Potassium 3.6 Chloride 104 Carbon Dioxide 25 Anion Gap 9 BUN 29 H D Creatinine 8.3 H* D Creat Clearance w eGFR 6.88 POC Glucometer 121.25286 Random Glucose 88 Calcium 7.7 L Phosphorus 2.8 Magnesium 2.2 Total Bilirubin 0.4 AST 5 L D ALT 8 L Alkaline Phosphatase 77 Total Protein 5.4 L Albumin 2.1 L Hepatitis A Ab Total Hep Bs Antigen Hep Bs Antibody Hep B Core Total Ab Hep C Ab Diagnostic Liver Fibrosis Interp 02/05/18 11:01 WBC RBC Hgb Hct MCV MCH MCHC RDW Plt Count MPV Absolute Neuts (auto) Neutrophils % Lymphocytes % Monocytes % Eosinophils % Basophils % Nucleated RBC % Sodium Potassium Chloride Carbon Dioxide Anion Gap BUN Creatinine Creat Clearance w eGFR POC Glucometer 137.25165 Random Glucose Calcium Phosphorus Magnesium Total Bilirubin AST ALT Alkaline Phosphatase Total Protein Albumin Hepatitis A Ab Total Hep Bs Antigen Hep Bs Antibody Hep B Core Total Ab Hep C Ab Diagnostic Liver Fibrosis Interp Active Medications Generic Name Dose Route Start Last Admin Trade Name Freq PRN Reason Stop Dose Admin Chlorhexidine Gluconate 1 applic 02/01/18 22:00 02/04/18 21:30 Hibiclens For Decolonization - TP 1 applic HS IRVIN Administration Collagenase 1 applic 02/02/18 10:00 02/05/18 09:42 Santyl - TP 1 applic DAILY IRVIN Administration Diphenhydramine HCl 25 mg 02/02/18 05:33 02/02/18 17:06 Benadryl Injection - IVPUSH 25 mg Q4H PRN Administration FOR ITCHING Heparin Sodium (Porcine) 5,000 unit 02/02/18 14:00 02/05/18 05:24 Heparin - SQ 5,000 unit TID IRVIN Administration Ceftaroline Fosamil 200 mg/ 100 mls @ 100 mls/hr 02/03/18 06:00 02/05/18 05: 24 Dextrose IVPB 100 mls/hr Q12H IRVIN Administration Protocol Sodium Chloride 250 mls @ 3,000 mls/hr 02/04/18 14:59 Normal Saline - IV 02/05/18 14:59 PRN PRN Hypotension during Dialysis Insulin Aspart 1 vial 02/01/18 16:30 02/05/18 06:44 Novolog Vial Sliding Scale - SQ Not Given ACHS [facility] Protocol Mupirocin 1 applic 02/01/18 22:00 02/05/18 09:41 Bactroban Ointment (For Decolonization) - NS 02/06/18 21:59 1 applic BID IRVIN Administration Microbiology 01/31/18 17:19 Blood - Peripheral Venous Blood Culture - Preliminary NO GROWTH OBTAINED AFTER 96 HOURS, INCUBATION TO CONTINUE FOR 1 DAYS. 01/31/18 17:19 Blood - Peripheral Venous Blood Culture - Preliminary NO GROWTH OBTAINED AFTER 96 HOURS, INCUBATION TO CONTINUE FOR 1 DAYS. MRI LE results pending ASSESSMENT/PLAN: 52 yom with PMHx of diabetes mellitus, depression, vancomycin allergy, wheelchair dependence, ESRD on hemodialysis for 3 years, right diabetic foot ulcers, and fecal incontinence admitted with non healing right foot diabetic ulcer with cellulitis -Septic shock/Non healing right foot diabetic ulcer with cellulitis, r/o abscess /osteomyelitis , s/p bedside debridement/wound vac 02/02 -?Drug reaction -Right hand swelling, ?IV Infiltration vs mild cellulitis, less likely gout given absence of pain, r/o DVT, less likely based on isolated hand findings -ESRD on HD -Diabetes Mellitus -Depression Plan: Ceftaroline day 4, blood cx neg so far. ?wound cx sent. ID input noted. OFf levophed x 48 hours. Follow up MRI results. Poditary/vascular surgery recs noted, bedside surgical debridement/wound vac 02/02. Xray with possible foreign body, follow up with podiatry. RUE duplex ISS,patient denies being on home meds. HD per renal. Psych input noted. DVTPPx with heparin Ok for transfer to telemetry Plan discussed with patient and nursing, all questions answered. Total critical care time spent 40 min. Visit type - Emergency Visit Emergency Visit: No - New Patient This patient is new to me today: No - Critical Care Critical Care patient: No
[2018-02-05 10:29] LABS: BASO % 0.4 % (0-2.0); EOS % 2.7 % (0-4.5); HEMATOCRIT 32.2 % (35.4-49); HEMOGLOBIN 10.3 GM/dL (11.7-16.9); LYMPH % 15.4 % (8-40); MCH 29.2 pg (25.7-33.7); MCHC 31.8 g/dl (32.0-35.9); MEAN CELL VOLUME 91.9 fl (80-96); MEAN PLT VOLUME 8.4 fl (7.5-11.1); MONO % 5.3 % (3.8-10.2); NEUT % 76.2 % (42.8-82.8); PLATELET COUNT 114 K/MM3 (134-434); RBC 3.51 M/mm3 (4.00-5.60); RDW 15.7 % (11.9-15.9); WHITE BLOOD COUNT 6.4 K/mm3 (4.0-10.0)
[2018-02-05 11:00] LABS: ALBUMIN 2.1 g/dl (3.4-5.0); ANION GAP 9 (8-16); BILIRUBIN,TOTAL 0.4 mg/dL (0.2-1.0); BLOOD UREA NITROGEN 29 mg/dL (7-18); CALCIUM 7.7 mg/dL (8.5-10.1); CHLORIDE 104 mmol/L (98-107); CO2 25 mmol/L (21-32); GLUCOSE,RANDOM 88 mg/dL (74-106); MAGNESIUM 2.2 mg/dL (1.8-2.4); PHOSPHOROUS 2.8 mg/dL (2.5-4.9); POTASSIUM 3.6 mmol/L (3.5-5.1); SGOT/AST 5 U/L (15-37); SGPT/ALT 8 U/L (12-78); SODIUM 138 mmol/L (136-145); TOT PROT 5.4 g/dl (6.4-8.2)
[2018-02-05 11:01] LABS: ALK PHOS 77 U/L (45-117)
[2018-02-05 11:24] LABS: CREATININE 8.3 mg/dL (0.7-1.3)
--- NOTE | 2018-02-05 15:25 | PN ---
Progress Note, Physician History of Present Illness: Pt seen and examined at bedside. He is awake and alert. He denies shortness of breath. - Current Medication List Current Medications: Active Medications Chlorhexidine Gluconate (Hibiclens For Decolonization -) 1 applic TP HS IRVIN Last Admin: 02/04/18 21:30 Dose: 1 applic Collagenase (Santyl -) 1 applic TP DAILY [facility] Last Admin: 02/05/18 09:42 Dose: 1 applic Diphenhydramine HCl (Benadryl Injection -) 25 mg IVPUSH Q4H PRN PRN Reason: FOR ITCHING Last Admin: 02/02/18 17:06 Dose: 25 mg Heparin Sodium (Porcine) (Heparin -) 5,000 unit SQ TID [facility]VIN Last Admin: 02/05/18 13:27 Dose: 5,000 unit Ceftaroline Fosamil 200 mg/ (Dextrose) 100 mls @ 100 mls/hr IVPB Q12H [facility]; Protocol Last Admin: 02/05/18 05:24 Dose: 100 mls/hr Sodium Chloride (Normal Saline -) 250 mls @ 3,000 mls/hr IV PRN PRN PRN Reason: Hypotension during Dialysis Stop: 02/05/18 14:59 Insulin Aspart (Novolog Vial Sliding Scale -) 1 vial SQ ACHS [facility]; Protocol Last Admin: 02/05/18 11:02 Dose: Not Given Mupirocin (Bactroban Ointment (For Decolonization) -) 1 applic NS BID [facility] Stop: 02/06/18 21:59 Last Admin: 02/05/18 09:41 Dose: 1 applic - Objective Vital Signs: Vital Signs Temperature 98.2 F 02/05/18 10:00 Pulse Rate 100 H 02/05/18 14:00 Respiratory Rate 18 02/05/18 14:00 Blood Pressure 134/80 02/05/18 14:00 O2 Sat by Pulse Oximetry (%) 99 02/04/18 21:00 Constitutional: Yes: Calm Eyes: Yes: Conjunctiva Clear HENT: Yes: Atraumatic Neck: Yes: Supple Cardiovascular: Yes: S1, S2 Respiratory: Yes: CTA Bilaterally Gastrointestinal: Yes: Soft Genitourinary: Yes: WNL Edema: Yes Edema: LLE: Trace, RLE: Trace Integumentary: Yes: Rash Neurological: Yes: Oriented Psychiatric: Yes: Oriented Labs: CBC, BMP 02/05/18 10:18 02/05/18 10:18 Problem List - Problems (1) ESRD (end stage renal disease) Code(s): N18.6 - END STAGE RENAL DISEASE (2) Diabetic foot ulcer Code(s): E11.621 - TYPE 2 DIABETES MELLITUS WITH FOOT ULCER; L97.509 - NON- PRESSURE CHRONIC ULCER OTH PRT UNSP FOOT W UNSP SEVERITY Qualifiers: Diabetic foot ulcer location: heel Diabetes mellitus type: other specified (including JADON) Laterality: right Non-pressure ulcer stage: unspecified non -pressure ulcer stage Qualified Code(s): E13.621 - Other specified diabetes mellitus with foot ulcer; L97.419 - Non-pressure chronic ulcer of right heel and midfoot with unspecified severity Assessment/Plan Current Medications Generic Name Dose Route Start Last Admin Trade Name Freq PRN Reason Stop Dose Admin Chlorhexidine Gluconate 1 applic 02/01/18 22:00 02/04/18 21:30 Hibiclens For Decolonization - TP 1 applic HS IRVIN Administration Collagenase 1 applic 02/02/18 10:00 02/05/18 09:42 Santyl - TP 1 applic DAILY [facility] Administration Diphenhydramine HCl 25 mg 02/02/18 05:33 02/02/18 17:06 Benadryl Injection - IVPUSH 25 mg Q4H PRN Administration FOR ITCHING Heparin Sodium (Porcine) 5,000 unit 02/02/18 14:00 02/05/18 13:27 Heparin - SQ 5,000 unit TID IRVIN Administration Ceftaroline Fosamil 200 mg/ 100 mls @ 100 mls/hr 02/03/18 06:00 02/05/18 05: 24 Dextrose IVPB 100 mls/hr Q12H IRVIN Administration Protocol Sodium Chloride 250 mls @ 3,000 mls/hr 02/04/18 14:59 Normal Saline - IV 02/05/18 14:59 PRN PRN Hypotension during Dialysis Insulin Aspart 1 vial 02/01/18 16:30 02/05/18 11:02 Novolog Vial Sliding Scale - SQ Not Given ACHS [facility] Protocol Mupirocin 1 applic 02/01/18 22:00 02/05/18 09:41 Bactroban Ointment (For Decolonization) - NS 02/06/18 21:59 1 applic BID IRVIN Administration Impression 1. ESRD 2. anemia 3. DFU 4. DM 5. sepsis 6. hypokalemia 7. hypotension 8. rash Plan - HD on Tuesday - follow up podiatry - follow up MRI - wound care to legs - abx per ID - HD AVF 4:15 abf 450 heparin 6000 with 1000 q hour, 2 k bath, [facility] [phone] - will follow Dr Frey
--- NOTE | 2018-02-05 16:21 | PN ---
Progress Note, Physician History of Present Illness: Pt states he feels well in general. No Pruritis/generalized erythema improving. Reports loose stools, denies abd pain. Tmax 99.2F. Rt forearm swelling. - Current Medication List Current Medications: Active Medications Chlorhexidine Gluconate (Hibiclens For Decolonization -) 1 applic TP HS IRV[facility] Last Admin: 02/04/18 21:30 Dose: 1 applic Collagenase (Santyl -) 1 applic TP DAILY [facility] Last Admin: 02/05/18 09:42 Dose: 1 applic Diphenhydramine HCl (Benadryl Injection -) 25 mg IVPUSH Q4H PRN PRN Reason: FOR ITCHING Last Admin: 02/02/18 17:06 Dose: 25 mg Heparin Sodium (Porcine) (Heparin -) 5,000 unit SQ TID IRVIN Last Admin: 02/05/18 13:27 Dose: 5,000 unit Ceftaroline Fosamil 200 mg/ (Dextrose) 100 mls @ 100 mls/hr IVPB Q12H [facility]; Protocol Last Admin: 02/05/18 05:24 Dose: 100 mls/hr Sodium Chloride (Normal Saline -) 250 mls @ 3,000 mls/hr IV PRN PRN PRN Reason: Hypotension during Dialysis Stop: 02/05/18 14:59 Insulin Aspart (Novolog Vial Sliding Scale -) 1 vial SQ ACHS [facility]; Protocol Last Admin: 02/05/18 11:02 Dose: Not Given Mupirocin (Bactroban Ointment (For Decolonization) -) 1 applic NS BID [facility] Stop: 02/06/18 21:59 Last Admin: 02/05/18 09:41 Dose: 1 applic - Objective Vital Signs: Vital Signs Temperature 98.2 F 02/05/18 10:00 Pulse Rate 100 H 02/05/18 14:00 Respiratory Rate 18 02/05/18 14:00 Blood Pressure 134/80 02/05/18 14:00 O2 Sat by Pulse Oximetry (%) 99 02/04/18 21:00 Constitutional: Yes: No Distress, Calm Cardiovascular: Yes: Tachycardia Respiratory: Yes: Regular Gastrointestinal: Yes: Normal Bowel Sounds, Soft Extremities: Yes: Erythema (Rt heel wound vac in place) Edema: Yes (RUE) Integumentary: Yes: Rash (improving erythema/desquamation) Wound/Incision: Yes: Other (Rt heel wound vac in place) Neurological: Yes: Alert, Oriented Labs: CBC, BMP 02/05/18 10:18 02/05/18 10:18 - ....Imaging MRI: Pending (LE MRI results pending) Problem List - Problems (1) Diabetic foot ulcer Code(s): E11.621 - TYPE 2 DIABETES MELLITUS WITH FOOT ULCER; L97.509 - NON- PRESSURE CHRONIC ULCER OTH PRT UNSP FOOT W UNSP SEVERITY Qualifiers: Diabetic foot ulcer location: heel Diabetes mellitus type: other specified (including JADON) Laterality: right Non-pressure ulcer stage: unspecified non -pressure ulcer stage Qualified Code(s): E13.621 - Other specified diabetes mellitus with foot ulcer; L97.419 - Non-pressure chronic ulcer of right heel and midfoot with unspecified severity (2) ESRD (end stage renal disease) Code(s): N18.6 - END STAGE RENAL DISEASE (3) Hypotension Code(s): I95.9 - HYPOTENSION, UNSPECIFIED Assessment/Plan Diabetic foot ulcer/LE cellulitis Rt heel wound vac Septic shock Generalized erythema/ Rash possibly due to previous antibiotics- improving ESRD on HD diarrhea - CDT negative Leukocytosis - improved -- cont. Ceftaroline for now -- order C. diff PCR -- f/u MRI -- RUE U/S ordered pt currently alert, afebrile
[2018-02-05] MEDS ORDERED: PT OWN MED DRAWER 7, Y5N ONE (17:10)
[2018-02-06] MEDS: CHLORHEXIDINE GLUCONATE 4% CLEANSER FOR DECOLONIZATION TP SCH ×2 (05:51→21:43)
[2018-02-06] MEDS ORDERED: PT OWN MED DRAWER 7, Y5N ONE ×2 (05:53→17:01)
[2018-02-06] MEDS: HEPARIN NA (PORCINE) 5,000 UNITS/ML 1ML VIAL SQ SCH ×3 (05:56→21:42)
[2018-02-06] MEDS: CEFTAROLINE FOSAMIL ACETATE 200 MG in DEXTROSE 5%-WATER - 100 ML IVPB SCH (05:56)
--- NOTE | 2018-02-06 07:36 | PN ---
Teaching Attending Note Name of Resident: Vianca Da Silva ATTENDING PHYSICIAN STATEMENT I saw and evaluated the patient. I reviewed the resident's note and discussed the case with the resident. I agree with the resident's findings and plan as documented with exceptions below. SUBJECTIVE: Patient seen and examined. feels better, right hand swelling improved, no pain. Overall feels well. OBJECTIVE: Vital Signs Period Temp Pulse Resp BP Sys/Gutierrez Pulse Ox Last 24 Hr 98.2 F-98.7 F 92-100 14-18 123-138/68-82 99 Intake & Output 02/03/18 02/04/18 02/05/18 02/06/18 23:59 23:59 23:59 23:59 Intake Total 2800.8 1782.5 320 150 Output Total 100 Balance 2800.8 1682.5 320 150 Weight 232 lb 8 oz 235 lb 9.6 oz 226 lb 1.6 oz 220 lb 1 oz General: sitting in bed in no acute distress Extremities: right heel wound vac, left foot ulcer on solar with no active discharge or foul smell Abdomen soft, NT Chest CTAB, no rales or wheezing Skin generalized excoriation with resolving erythema Home Medications Medication Instructions Recorded NK [No Known Home Medication] 01/31/18 Home Medication List Medication Instructions Recorded Confirmed Type NK [No Known Home Medication] 01/31/18 01/31/18 History Active Medications Chlorhexidine Gluconate (Hibiclens For Decolonization -) 1 applic TP HS [facility] Last Admin: 02/06/18 05:51 Dose: 1 applic Collagenase (Santyl -) 1 applic TP DAILY [facility] Last Admin: 02/05/18 09:42 Dose: 1 applic Diphenhydramine HCl (Benadryl Injection -) 25 mg IVPUSH Q4H PRN PRN Reason: FOR ITCHING Last Admin: 02/02/18 17:06 Dose: 25 mg Heparin Sodium (Porcine) (Heparin -) 5,000 unit SQ TID IRV[facility] Last Admin: 02/06/18 05:56 Dose: 5,000 unit Ceftaroline Fosamil 200 mg/ (Dextrose) 100 mls @ 100 mls/hr IVPB Q12H [facility]; Protocol Last Admin: 02/06/18 05:56 Dose: 100 mls/hr Sodium Chloride (Normal Saline -) 250 mls @ 3,000 mls/hr IV PRN PRN PRN Reason: Hypotension during Dialysis Stop: 02/05/18 14:59 Insulin Aspart (Novolog Vial Sliding Scale -) 1 vial SQ ACHS [facility]; Protocol Last Admin: 02/05/18 22:00 Dose: Not Given Mupirocin (Bactroban Ointment (For Decolonization) -) 1 applic NS BID [facility] Stop: 02/06/18 21:59 Last Admin: 02/05/18 23:24 Dose: 1 applic Microbiology 01/31/18 17:19 Blood - Peripheral Venous Blood Culture - Final NO GROWTH AFTER 5 DAYS INCUBATION 01/31/18 17:19 Blood - Peripheral Venous Blood Culture - Final NO GROWTH AFTER 5 DAYS INCUBATION 02/04/18 18:00 Stool Clostridium difficile Antigen (GEM) - Final 02/04/18 18:00 Stool Clostridium difficile Toxin Assay - Final MRI LE neg for osteomyelitis ASSESSMENT AND PLAN: 52 yom with PMHx of diabetes mellitus, depression, vancomycin allergy, wheelchair dependence, ESRD on hemodialysis for 3 years, right diabetic foot ulcers, and fecal incontinence admitted with non healing right foot diabetic ulcer with cellulitis -Septic shock/Non healing right foot diabetic ulcer with cellulitis, r/o abscess /osteomyelitis , s/p bedside debridement/wound vac / -?Drug reaction -RUE catheter related occlusive cephalic vein thrombosis -ESRD on HD -Diabetes Mellitus -Depression Plan: Ceftaroline day 5, blood cx neg so far. No wound cx sent. MRI with right calcaneum osteomyelitis. Discussed with Dr. Klein, rec Bone biopsy to guide further treatment. Discussed with Dr. Hackett, will follow up. Off levophed, doing well. Poditary/vascular surgery recs noted, bedside surgical debridement/wound vac / . Xray with possible foreign body, follow up with podiatry. Discussed with Dr. Villalobos, superficial catheter thrombosis, no indication for anti-coagulation as discussed. Await dermatology input. Overall improved now with excoriation. ISS,patient denies being on home meds. HD per renal. Psych input noted. 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 Plan discussed with patient, all questions answered. PT eval, OOB.
--- NOTE | 2018-02-06 08:42 | PN ---
Physical Exam: SUBJECTIVE: Patient seen and examined. Better, off levophed and fluids. [facility]. Now has flaking of skin. OBJECTIVE: Vital Signs Period Temp Pulse Resp BP Sys/Gutierrez Pulse Ox Last 24 Hr 98.2 F-98.7 F 92-100 123-138/68-82 99 Vital Signs Temp 98.5 F 02/05/18 22:00 Pulse 92 H 02/06/18 04:00 Resp 14 02/06/18 04:00 BP 130/74 02/06/18 04:00 Pulse Ox 99 02/05/18 22:00 Intake & Output 02/05/18 02/06/18 02/06/18 23:59 11:59 23:59 Intake Total 100 150 120 Balance 100 150 120 Weight 99.819 kg Intake: IVPB 100 Oral 100 50 120 Other: Voiding Method Diaper Bowel Movement No Weight Measurement Method Built in [facility] Intake & Output 02/03/18 02/04/18 02/05/18 02/06/18 23:59 23:59 23:59 23:59 Intake Total 2800.8 1782.5 320 270 Output Total 100 Balance 2800.8 1682.5 320 270 Weight 105.46 kg 106.866 kg 102.557 kg 99.819 kg GENERAL: The patient is awake, alert, and fully oriented, in no acute respiratory or painful distress. Has skin desquamation worse on face and neck HEAD: Desquamated skin. EYES: PERRL, extraocular movements intact ENT: oropharynx clear without exudates, moist mucous membranes without ulcers. NECK: full range of motion, supple, desquamated skin. LUNGS: Breath sounds equal, clear to auscultation bilaterally, no wheezes, no crackles HEART: Regular rate and rhythm, S1, S2 without murmur ABDOMEN: Soft, nontender, nondistended, normoactive bowel sounds, no guarding EXTREMITIES: 2x2cm superficial heel ulcer medially on the left, dry, with dark base. R Heel with wound vac, mild pedal edema up to ankle. R hand swelling. NEUROLOGICAL: AAOx3. Normal speech, normal muscle tone and strength bilateral UEs. SKIN: Documented sacral decubitus ulcer on presentation by nurse. CBC, BMP 02/06/18 09:50 02/06/18 09:50 Laboratory Results - last 24 hr 02/05/18 02/05/18 02/05/18 05:56 10:18 10:18 WBC 6.4 D RBC 3.51 L Hgb 10.3 L Hct 32.2 L MCV 91.9 MCH 29.2 MCHC 31.8 L RDW 15.7 Plt Count 114 L MPV 8.4 Absolute Neuts (auto) 4.9 Neutrophils % 76.2 Lymphocytes % 15.4 D Monocytes % 5.3 Eosinophils % 2.7 Basophils % 0.4 Nucleated RBC % 0 Sodium 138 Potassium 3.6 Chloride 104 Carbon Dioxide 25 Anion Gap 9 BUN 29 H D Creatinine 8.3 H* D Creat Clearance w eGFR 6.88 POC Glucometer 121.62921 Random Glucose 88 Calcium 7.7 L Phosphorus 2.8 Magnesium 2.2 Total Bilirubin 0.4 AST 5 L D ALT 8 L Alkaline Phosphatase 77 Total Protein 5.4 L Albumin 2.1 L 02/05/18 11:01 WBC RBC Hgb Hct MCV MCH MCHC RDW Plt Count MPV Absolute Neuts (auto) Neutrophils % Lymphocytes % Monocytes % Eosinophils % Basophils % Nucleated RBC % Sodium Potassium Chloride Carbon Dioxide Anion Gap BUN Creatinine Creat Clearance w eGFR POC Glucometer 137.66938 Random Glucose Calcium Phosphorus Magnesium Total Bilirubin AST ALT Alkaline Phosphatase Total Protein Albumin Active Medications Current Medications Chlorhexidine Gluconate (Hibiclens For Decolonization -) 1 applic TP HS [facility]VIN Last Admin: 02/06/18 05:51 Dose: 1 applic Collagenase (Santyl -) 1 applic TP DAILY [facility] Last Admin: 02/05/18 09:42 Dose: 1 applic Diphenhydramine HCl (Benadryl Injection -) 25 mg IVPUSH Q4H PRN PRN Reason: FOR ITCHING Last Admin: 02/02/18 17:06 Dose: 25 mg Heparin Sodium (Porcine) (Heparin -) 5,000 unit SQ TID [facility] Last Admin: 02/06/18 05:56 Dose: 5,000 unit Ceftaroline Fosamil 200 mg/ (Dextrose) 100 mls @ 100 mls/hr IVPB Q12H [facility]; Protocol Last Admin: 02/06/18 05:56 Dose: 100 mls/hr Sodium Chloride (Normal Saline -) 250 mls @ 3,000 mls/hr IV PRN PRN PRN Reason: Hypotension during Dialysis Stop: 02/05/18 14:59 Insulin Aspart (Novolog Vial Sliding Scale -) 1 vial SQ ACHS [facility]; Protocol Last Admin: 02/06/18 12:20 Dose: Not Given Mupirocin (Bactroban Ointment (For Decolonization) -) 1 applic NS BID [facility] Stop: 02/06/18 21:59 Last Admin: 02/06/18 10:00 Dose: 1 applic Microbiology 01/31/18 17:19 Blood - Peripheral Venous Blood Culture - Final NO GROWTH AFTER 5 DAYS INCUBATION 01/31/18 17:19 Blood - Peripheral Venous Blood Culture - Final NO GROWTH AFTER 5 DAYS INCUBATION 02/04/18 18:00 Stool Clostridium difficile Antigen (GEM) - Final 02/04/18 18:00 Stool Clostridium difficile Toxin Assay - Final MRI bilateral LEs: IMPRESSION: RIGHT ankle - 1. Large skin and subcutaneous soft tissue defect overlying the right calcaneus with osteomyelitis in the dorsal calcaneus. No evidence of drainable fluid collection in the surrounding soft tissues. 2. Diffuse fatty atrophy of the intrinsic muscles in the midfoot and hindfoot with superimposed intramuscular and intermuscular edema is probably attributed to denervation/diabetic peripheral neuropathy. 3. Lateral plantar fascia fibromatosis. Extensive thickening and degeneration of the plantar fascia. Chronic thickening/tendinosis of the Achilles. LEFT ankle - 1. No evidence of osteomyelitis. Subcutaneous edema/fluid in the midfoot and hindfoot is of indeterminant etiology. No drainable collection. 2. Diffuse fatty atrophy of the intrinsic muscles in the midfoot and hindfoot with superimposed intramuscular and intermuscular edema is probably attributed to denervation/diabetic peripheral neuropathy. 3. Chronic thickening/tendinosis of the Achilles and plantar fasciopathy with small plantar and dorsal calcaneal spurs. ASSESSMENT/PLAN: The patient is a 52 yo m w/ PMH DM (non compliant), psychiatric illness requiring admission, ESRD on HD (MWF) who was sent to the ED from the wound care clinic for evaluation of a worsening bilateral foot ulcers. #Septic shock secondary to diabe Resolved Pt off pressors and Iv fluids Likely secondary to foot ulcer (S), Local wound care - per podiatry #R hand swelling Occlusive thrombus within R cephalic vein near elbow No evidence of deep vein thrombosis Monitor #Generalized skin redness and warmth- Generalized erythrodermatic drug reaction Resolving on ceftaroline Now with desquamation of skin Derm consult- D/W Dr Mejia- Per Dr Mejia- Desquamation indicates resolution of the reaction and a biopsy will not be helpful. Based on the description, it is likely an erythrodermic drug reaction which could be to any or all of the prior used antibiotics, her recommendations are for him to follow an bag press operator as an outpatient to determine the specific drug to which he is allergic, but for now we could list all 3, including vanco that he used earlier. Pt notes it happens after AB use Previous reaction to vancomycin with skin flaking similar to current appearance Likely reaction to clindamycin 600mg, Zosyn and meropenem Pt received benadryl #DM bilateral foot ulcer - Likely source of infection -ID consult- Dr Klein-apprec recs -Continue ceftaroline 600mg -Cont local wound mx per podiatry-Sent by Dr Terrazas -vascular surgery consult- Dr Villalobos-appreciate recs -MRI w/o contrast Rt foot and L foot to r/o osteo- R foot osteomyelitis, L foot no osteo #Decubitus ulcer Documented by nurse on presentation-Stage 4 sacral decubitus 6x4x2 with purulent drainage, foul smelling. #ESRD Hemodialysis MWF- Dr Frey on board For reevaluation #DM Pt not requiring insulin, could have been in response to sepsis, Hgb A1c - 4 -A1C -ISS -BGM #History of depression, not on medications -was previously on zoloft, patient stopped taking it without MD instruction - psych hospital admit in the past -psych consult- Dr Aleman #Dispo: Continue Tele Dispo Planning for assisted a/b -pending Dr Klein's recs and likely VNS Visit type - Emergency Visit Emergency Visit: Yes ED Registration Date: 01/31/18 Care time: The patient presented to the Emergency Department on the above date and was hospitalized for further evaluation of their emergent condition. - New Patient This patient is new to me today: No - Critical Care Critical Care patient: No - Discharge Referral Referred to [facility] No
[2018-02-06] MEDS: MUPIROCIN 2% TOPICAL OINTMENT FOR DECOLONIZATION NS SCH (10:00)
[2018-02-06] MEDS: COLLAGENASE CLOSTRIDIUM HIST. 30 GRAMS TUBE TP SCH (10:00)
[2018-02-06 10:47] LABS: BASO % 0.9 % (0-2.0); EOS % 3.2 % (0-4.5); HEMATOCRIT 33.1 % (35.4-49); HEMOGLOBIN 10.5 GM/dL (11.7-16.9); LYMPH % 21.5 % (8-40); MCHC 31.6 g/dl (32.0-35.9); MEAN CELL VOLUME 91.5 fl (80-96); MONO % 8.1 % (3.8-10.2); NEUT % 66.3 % (42.8-82.8); PLATELET COUNT 137 K/MM3 (134-434); RBC 3.62 M/mm3 (4.00-5.60); RDW 15.3 % (11.9-15.9); WHITE BLOOD COUNT 4.9 K/mm3 (4.0-10.0)
[2018-02-06 11:50] LABS: ALBUMIN 2.1 g/dl (3.4-5.0); ANION GAP 12 (8-16); BLOOD UREA NITROGEN 37 mg/dL (7-18); CALCIUM 7.4 mg/dL (8.5-10.1); CHLORIDE 103 mmol/L (98-107); CO2 22 mmol/L (21-32); GLUCOSE,RANDOM 83 mg/dL (74-106); SODIUM 137 mmol/L (136-145)
[2018-02-06 11:53] LABS: ALK PHOS 75 U/L (45-117); BILIRUBIN,TOTAL 0.4 mg/dL (0.2-1.0); PHOSPHOROUS 2.9 mg/dL (2.5-4.9); SGPT/ALT 8 U/L (12-78); TOT PROT 5.4 g/dl (6.4-8.2)
[2018-02-06 11:59] LABS: MAGNESIUM 2.2 mg/dL (1.8-2.4); POTASSIUM 3.8 mmol/L (3.5-5.1); SGOT/AST 12 U/L (15-37)
[2018-02-06 12:06] LABS: CREATININE 9.2 mg/dL (0.7-1.3)
[2018-02-06] MEDS: INSULIN SLIDING SCALE (NOVOLOG) 1 VIAL SQ SCH ×3 (12:20→21:58)
--- NOTE | 2018-02-06 12:53 | PN ---
Progress Note, Physician History of Present Illness: Pt seen and examined at bedside. He is awake and alert. He feels much better today. - Current Medication List Current Medications: Active Medications Chlorhexidine Gluconate (Hibiclens For Decolonization -) 1 applic TP HS [facility] Last Admin: 02/06/18 05:51 Dose: 1 applic Collagenase (Santyl -) 1 applic TP DAILY [facility] Last Admin: 02/05/18 09:42 Dose: 1 applic Diphenhydramine HCl (Benadryl Injection -) 25 mg IVPUSH Q4H PRN PRN Reason: FOR ITCHING Last Admin: 02/02/18 17:06 Dose: 25 mg Heparin Sodium (Porcine) (Heparin -) 5,000 unit SQ TID [facility] Last Admin: 02/06/18 05:56 Dose: 5,000 unit Ceftaroline Fosamil 200 mg/ (Dextrose) 100 mls @ 100 mls/hr IVPB Q12H [facility]; Protocol Last Admin: 02/06/18 05:56 Dose: 100 mls/hr Sodium Chloride (Normal Saline -) 250 mls @ 3,000 mls/hr IV PRN PRN PRN Reason: Hypotension during Dialysis Stop: 02/05/18 14:59 Insulin Aspart (Novolog Vial Sliding Scale -) 1 vial SQ ACHS [facility]; Protocol Last Admin: 02/06/18 12:20 Dose: Not Given Mupirocin (Bactroban Ointment (For Decolonization) -) 1 applic NS BID [facility] Stop: 02/06/18 21:59 Last Admin: 02/06/18 10:00 Dose: 1 applic - Objective Vital Signs: Vital Signs Temperature 98.5 F 02/05/18 22:00 Pulse Rate 92 H 02/06/18 04:00 Respiratory Rate 14 02/06/18 04:00 Blood Pressure 130/74 02/06/18 04:00 O2 Sat by Pulse Oximetry (%) 99 02/05/18 22:00 Constitutional: Yes: Calm Eyes: Yes: Conjunctiva Clear HENT: Yes: Atraumatic Neck: Yes: Supple Cardiovascular: Yes: S1, S2 Respiratory: Yes: CTA Bilaterally Gastrointestinal: Yes: Normal Bowel Sounds, Soft Genitourinary: Yes: WNL Musculoskeletal: Yes: WNL Edema: Yes Edema: LLE: Trace, RLE: Trace Integumentary: Yes: Rash Neurological: Yes: Oriented Psychiatric: Yes: Oriented Labs: CBC, BMP 02/06/18 09:50 02/06/18 09:50 Problem List - Problems (1) ESRD (end stage renal disease) Code(s): N18.6 - END STAGE RENAL DISEASE (2) Diabetic foot ulcer Code(s): E11.621 - TYPE 2 DIABETES MELLITUS WITH FOOT ULCER; L97.509 - NON- PRESSURE CHRONIC ULCER OTH PRT UNSP FOOT W UNSP SEVERITY Qualifiers: Diabetic foot ulcer location: heel Diabetes mellitus type: other specified (including JADON) Laterality: right Non-pressure ulcer stage: unspecified non -pressure ulcer stage Qualified Code(s): E13.621 - Other specified diabetes mellitus with foot ulcer; L97.419 - Non-pressure chronic ulcer of right heel and midfoot with unspecified severity Assessment/Plan Current Medications Generic Name Dose Route Start Last Admin Trade Name Freq PRN Reason Stop Dose Admin Chlorhexidine Gluconate 1 applic 02/01/18 22:00 02/06/18 05:51 Hibiclens For Decolonization - TP 1 applic HS IRVIN Administration Collagenase 1 applic 02/02/18 10:00 02/05/18 09:42 Santyl - TP 1 applic DAILY IRVIN Administration Diphenhydramine HCl 25 mg 02/02/18 05:33 02/02/18 17:06 Benadryl Injection - IVPUSH 25 mg Q4H PRN Administration FOR ITCHING Heparin Sodium (Porcine) 5,000 unit 02/02/18 14:00 02/06/18 05:56 Heparin - SQ 5,000 unit TID IRVIN Administration Ceftaroline Fosamil 200 mg/ 100 mls @ 100 mls/hr 02/03/18 06:00 02/06/18 05: 56 Dextrose IVPB 100 mls/hr Q12H [facility] Administration Protocol Sodium Chloride 250 mls @ 3,000 mls/hr 02/04/18 14:59 Normal Saline - IV 02/05/18 14:59 PRN PRN Hypotension during Dialysis Insulin Aspart 1 vial 02/01/18 16:30 02/06/18 12:20 Novolog Vial Sliding Scale - SQ Not Given ACHS IRVIN Protocol Mupirocin 1 applic 02/01/18 22:00 02/06/18 10:00 Bactroban Ointment (For Decolonization) - NS 02/06/18 21:59 1 applic BID IRVIN Administration Impression 1. ESRD 2. anemia 3. DFU 4. DM 5. sepsis 6. hypokalemia 7. hypotension 8. rash Plan - unable to dialyze today secondary to staffing issues, administration is aware - volume status and potassium are stable - HD in am - rash is improving - wound care to legs - abx per ID - HD AVF 4:15 abf 450 heparin 6000 with 1000 q hour, 2 k [place], [facility] [phone] - will follow Dr Frey
--- NOTE | 2018-02-06 13:08 | PN ---
Progress Note, Physician History of Present Illness: improving no complaints flaking skin noted - Current Medication List Current Medications: Active Medications Chlorhexidine Gluconate (Hibiclens For Decolonization -) 1 applic TP HS [facility] Last Admin: 02/06/18 05:51 Dose: 1 applic Collagenase (Santyl -) 1 applic TP DAILY [facility] Last Admin: 02/05/18 09:42 Dose: 1 applic Diphenhydramine HCl (Benadryl Injection -) 25 mg IVPUSH Q4H PRN PRN Reason: FOR ITCHING Last Admin: 02/02/18 17:06 Dose: 25 mg Heparin Sodium (Porcine) (Heparin -) 5,000 unit SQ TID [facility] Last Admin: 02/06/18 05:56 Dose: 5,000 unit Ceftaroline Fosamil 200 mg/ (Dextrose) 100 mls @ 100 mls/hr IVPB Q12H [facility]; Protocol Last Admin: 02/06/18 05:56 Dose: 100 mls/hr Sodium Chloride (Normal Saline -) 250 mls @ 3,000 mls/hr IV PRN PRN PRN Reason: Hypotension during Dialysis Stop: 02/05/18 14:59 Insulin Aspart (Novolog Vial Sliding Scale -) 1 vial SQ ACHS [facility]; Protocol Last Admin: 02/06/18 12:20 Dose: Not Given Mupirocin (Bactroban Ointment (For Decolonization) -) 1 applic NS BID [facility] Stop: 02/06/18 21:59 Last Admin: 02/06/18 10:00 Dose: 1 applic - Objective Vital Signs: Vital Signs Temperature 98.5 F 02/05/18 22:00 Pulse Rate 92 H 02/06/18 04:00 Respiratory Rate 14 02/06/18 04:00 Blood Pressure 130/74 02/06/18 04:00 O2 Sat by Pulse Oximetry (%) 99 02/05/18 22:00 Constitutional: Yes: No Distress, Calm Cardiovascular: Yes: Regular Rate and Rhythm Respiratory: Yes: Regular, CTA Bilaterally Gastrointestinal: Yes: Normal Bowel Sounds, Soft Musculoskeletal: Yes: WNL Extremities: Yes: Other Integumentary: Yes: Other (flaking skin) Wound/Incision: Yes: Other (wound vac in place) Neurological: Yes: Alert, Oriented Psychiatric: Yes: Alert, Oriented Labs: CBC, BMP 02/06/18 09:50 02/06/18 09:50 Assessment/Plan Problem List (1) Hypotension Code(s): I95.9 - HYPOTENSION, UNSPECIFIED (2) Diabetic foot ulcer Code(s): E11.621 - TYPE 2 DIABETES MELLITUS WITH FOOT ULCER; L97.509 - NON- PRESSURE CHRONIC ULCER OTH PRT UNSP FOOT W UNSP SEVERITY Qualifiers: Diabetic foot ulcer location: heel Diabetes mellitus type: other specified (including JADON) Laterality: right Non-pressure ulcer stage: unspecified non -pressure ulcer stage Qualified Code(s): E13.621 - Other specified diabetes mellitus with foot ulcer; L97.419 - Non-pressure chronic ulcer of right heel and midfoot with unspecified severity (3) ESRD (end stage renal disease) Code(s): N18.6 - END STAGE RENAL DISEASE Septic shock due to presumed LE diabetic foot ulcers. bilateral cellulitis of the leg osteo of the rt leg plan conitnue abx improving once stable will descalate dialysis rest as per the team
--- NOTE | 2018-02-06 13:25 | PN ---
Progress Note (short form) - Note Progress Note: PULMONARY Denies shortness of breath or chest pain. No fevers recorded. Vital Signs Period Temp Pulse Resp BP Sys/Gutierrez Pulse Ox Last 24 Hr 98.5 F-98.7 F 92-100 123-138/68-81 99 Intake & Output 02/03/18 02/04/18 02/05/18 02/06/18 23:59 23:59 23:59 23:59 Intake Total 2800.8 1782.5 320 270 Output Total 100 Balance 2800.8 1682.5 320 270 Weight 105.46 kg 106.866 kg 102.557 kg 99.819 kg Gen: NAD at rest Heart: RRR Lung: decreased breath sounds at the bases Abd: soft, nontender Ext: no edema CBC, BMP 02/06/18 09:50 02/06/18 09:50 Active Medications Chlorhexidine Gluconate (Hibiclens For Decolonization -) 1 applic TP HS [facility] Last Admin: 02/06/18 05:51 Dose: 1 applic Collagenase (Santyl -) 1 applic TP DAILY [facility] Last Admin: 02/05/18 09:42 Dose: 1 applic Diphenhydramine HCl (Benadryl Injection -) 25 mg IVPUSH Q4H PRN PRN Reason: FOR ITCHING Last Admin: 02/02/18 17:06 Dose: 25 mg Heparin Sodium (Porcine) (Heparin -) 5,000 unit SQ TID [facility] Last Admin: 02/06/18 05:56 Dose: 5,000 unit Ceftaroline Fosamil 200 mg/ (Dextrose) 100 mls @ 100 mls/hr IVPB Q12H [facility]; Protocol Last Admin: 02/06/18 05:56 Dose: 100 mls/hr Sodium Chloride (Normal Saline -) 250 mls @ 3,000 mls/hr IV PRN PRN PRN Reason: Hypotension during Dialysis Stop: 02/05/18 14:59 Insulin Aspart (Novolog Vial Sliding Scale -) 1 vial SQ ACHS [facility]; Protocol Last Admin: 02/06/18 12:20 Dose: Not Given Mupirocin (Bactroban Ointment (For Decolonization) -) 1 applic NS BID [facility] Stop: 02/06/18 21:59 Last Admin: 02/06/18 10:00 Dose: 1 applic A/P Cellulitis r/o Osteomyelitis Sepsis resolving ESRD on HD DM - antibiotics per ID - HD per renal - glucose control - PO as tolerated - DVT prophylaxis
[2018-02-06 14:59] LABS: ACANTHOCYTES 0; ANISOCYTOSIS 0; HELMET CELLS 0; HOWELL-JOLLY BODIES 0; MACROCYTOSIS 0; OVALOCYTE 0; PLATELET ESTIMATE NORMAL; ROULEAU 0; SICKELED CELLS 0; TARGET CELLS 0; TEAR DROP CELLS 0; TOXIC GRANULATION 0
[2018-02-07] MEDS ORDERED: PT OWN MED DRAWER 7, Y5N ONE (05:57)
[2018-02-07] MEDS: HEPARIN NA (PORCINE) 5,000 UNITS/ML 1ML VIAL SQ SCH ×3 (06:19→21:19)
[2018-02-07] MEDS: INSULIN SLIDING SCALE (NOVOLOG) 1 VIAL SQ SCH ×3 (06:19→21:23)
[2018-02-07] MEDS: CEFTAROLINE FOSAMIL ACETATE 200 MG in DEXTROSE 5%-WATER - 100 ML IVPB SCH ×2 (06:21→21:23)
[2018-02-07 09:30] LABS: BASO % 0.8 % (0-2.0); EOS % 2.3 % (0-4.5); HEMOGLOBIN 10.3 GM/dL (11.7-16.9); LYMPH % 24.1 % (8-40); MCH 28.9 pg (25.7-33.7); MCHC 32.3 g/dl (32.0-35.9); MEAN CELL VOLUME 89.5 fl (80-96); MEAN PLT VOLUME 8.2 fl (7.5-11.1); NEUT % 64.8 % (42.8-82.8); PLATELET COUNT 128 K/MM3 (134-434); RBC 3.57 M/mm3 (4.00-5.60); RDW 15.2 % (11.9-15.9); WHITE BLOOD COUNT 5.8 K/mm3 (4.0-10.0)
--- NOTE | 2018-02-07 09:42 | PN ---
Physical Exam: SUBJECTIVE: Patient seen and examined. Pt said he has not had an appetite to eat , usually has loose bowel movements. Was not dialyzed yesterday. Still having desquamation of skin, no fevers, no burning sensation. Yet to get OOB into chair with assistance. OBJECTIVE: Vital Signs Period Temp Pulse Resp BP Sys/Gutierrez Pulse Ox Last 24 Hr 98.1 F-99.0 F 89-100 11-19 124-143/72-95 98 Vital Signs Temp 99.0 F 02/07/18 08:00 Pulse 91 H 02/07/18 10:35 Resp 17 02/07/18 10:35 BP 149/96 02/07/18 10:35 Pulse Ox 98 02/06/18 21:00 Intake & Output 02/06/18 02/06/18 02/07/18 11:59 23:59 11:59 Intake Total 150 120 Balance 150 120 Weight 99.819 kg 106.141 kg Intake: IV 0 saline lock 0 IVPB 100 Oral 50 120 Other: Voiding Method Diaper Diaper Bowel Movement No No Weight Measurement Method Built in [facility] Built [facility] GENERAL: The patient is awake, alert, and fully oriented, desquamating face and skin. HEAD: desquamating face and skin. ENT:Missing teeth LUNGS: Breath sounds equal, clear to auscultation bilaterally-anterior lung only (pt refused) HEART: Regular rate and rhythm, S1, S2 ABDOMEN: refused abdominal exam- EXTREMITIES: dressing bilateral heels. R foot on wound vac, suctioning serosanguinous fluid. L forearm, AV fistula. NEUROLOGICAL: AAOx3. Moves bilateral UEs. Normal speech CBC, BMP 02/07/18 09:15 02/07/18 09:15 Laboratory Results - last 24 hr 02/05/18 02/05/18 02/06/18 17:21 22:02 06:13 WBC RBC Hgb Hct MCV MCH MCHC RDW Plt Count MPV Absolute Neuts (auto) Neutrophils % Neutrophils % (Manual) Band Neutrophils % Lymphocytes % Lymphocytes % (Manual) Monocytes % Monocytes % (Manual) Eosinophils % Eosinophils % (Manual) Basophils % Basophils % (Manual) Myelocytes % (Man) Promyelocytes % (Man) Blast Cells % (Manual) Nucleated RBC % Metamyelocytes Hypochromia Toxic Granulation Dohle Bodies Platelet Estimate Polychromasia Poikilocytosis Basophilic Stippling Anisocytosis Microcytosis Macrocytosis Spherocytes Sickle Cells Target Cells Tear Drop Cells Ovalocytes Stomatocytes Helmet Cells [place] Bodies [place] Rings [place] Cells Acanthocytes (Spur) Rouleaux Fragmented RBCs Schistocytes Sodium Potassium Chloride Carbon Dioxide Anion Gap BUN Creatinine Creat Clearance w eGFR POC Glucometer 135.06953 114.51863 107.65981 Random Glucose Calcium Phosphorus Magnesium Total Bilirubin AST ALT Alkaline Phosphatase Total Protein Albumin 02/06/18 02/06/18 02/07/18 09:50 09:50 09:15 WBC 4.9 5.8 RBC 3.62 L 3.57 L Hgb 10.5 L 10.3 L Hct 33.1 L 32.0 L MCV 91.5 89.5 MCH 29.0 28.9 MCHC 31.6 L 32.3 RDW 15.3 15.2 Plt Count 137 D 128 L MPV 9.0 8.2 Absolute Neuts (auto) 3.3 3.7 Neutrophils % 66.3 64.8 Neutrophils % (Manual) 78.8 Band Neutrophils % 0.0 Lymphocytes % 21.5 D 24.1 Lymphocytes % (Manual) 11.1 D Monocytes % 8.1 8.0 Monocytes % (Manual) 5 D Eosinophils % 3.2 2.3 Eosinophils % (Manual) 3.0 Basophils % 0.9 0.8 Basophils % (Manual) 1.0 D Myelocytes % (Man) 1 D Promyelocytes % (Man) 0 Blast Cells % (Manual) 0 Nucleated RBC % 0 0 Metamyelocytes 0 Hypochromia 0 Toxic Granulation 0 Dohle Bodies 0 Platelet Estimate Normal Polychromasia 0 Poikilocytosis 0 Basophilic Stippling 0 Anisocytosis 0 Microcytosis 0 Macrocytosis 0 Spherocytes 0 Sickle Cells 0 Target Cells 0 Tear Drop Cells 0 Ovalocytes 0 Stomatocytes 0 Helmet Cells 0 [place] Bodies 0 [place] Rings 0 [place] Cells 0 Acanthocytes (Spur) 0 Rouleaux 0 Fragmented RBCs 0 Schistocytes 0 Sodium 137 Potassium 3.8 Chloride 103 Carbon Dioxide 22 Anion Gap 12 BUN 37 H D Creatinine 9.2 H* Creat Clearance w eGFR 6.11 POC Glucometer Random Glucose 83 Calcium 7.4 L Phosphorus 2.9 Magnesium 2.2 Total Bilirubin 0.4 AST 12 L D ALT 8 L Alkaline Phosphatase 75 Total Protein 5.4 L Albumin 2.1 L Current Medications Chlorhexidine Gluconate (Hibiclens For Decolonization -) 1 applic TP HS [facility] Last Admin: 02/06/18 21:43 Dose: 1 applic Collagenase (Santyl -) 1 applic TP DAILY [facility] Last Admin: 02/06/18 10:00 Dose: 1 applic Diphenhydramine HCl (Benadryl Injection -) 25 mg IVPUSH Q4H PRN PRN Reason: FOR ITCHING Last Admin: 02/02/18 17:06 Dose: 25 mg Heparin Sodium (Porcine) (Heparin -) 5,000 unit SQ TID [facility] Last Admin: 02/07/18 06:19 Dose: Not Given Ceftaroline Fosamil 200 mg/ (Dextrose) 100 mls @ 100 mls/hr IVPB Q12H [facility]; Protocol Last Admin: 02/07/18 06:21 Dose: 100 mls/hr Sodium Chloride (Normal Saline -) 250 mls @ 3,000 mls/hr IV PRN PRN PRN Reason: Hypotension during Dialysis Stop: 02/05/18 14:59 ASSESSMENT/PLAN: The patient is a 52 yo m w/ PMH DM (non compliant), psychiatric illness requiring admission, ESRD on HD (MWF) who was sent to the ED from the wound care clinic for evaluation of a worsening bilateral foot ulcers. #R heel osteomyelitis secondary to diabetic foot ulcer and immobility Cont iv ceftaroline Pending decision on outpatient antibiotic Cont wound vac and local wound care #Septic shock secondary to diabetic foot ulcers Resolved Pt off pressors and Iv fluids Local wound care - per podiatry #R hand swelling Occlusive thrombus within R cephalic vein near elbow No evidence of deep vein thrombosis Monitor # Generalized erythrodermic drug reaction Generalized skin redness and warmth with itching on previous antibiotic administration Resolving on ceftaroline Now with desquamation of skin Derm consult- D/W Dr Mejia- Per Dr Mejia- Desquamation indicates resolution of the reaction and a biopsy will not be helpful. Based on the description, it is likely an erythrodermic drug reaction which could be due to any or all of the prior used antibiotics, her recommendations are for him to follow an triage clinician as an outpatient to determine the specific drug to which he is allergic, but for now we could list all 3, including vanco that he used earlier. Pt notes it happens after AB use Previous reaction to vancomycin with skin flaking similar to current appearance Likely reaction to clindamycin 600mg, Zosyn and meropenem Pt received benadryl #DM bilateral foot ulcer - Likely source of infection -ID consult- Dr Klein-apprec recs -Continue ceftaroline 600mg -Cont local wound mx per podiatry-Sent by Dr Terrazas, Dr Hackett on board -vascular surgery consult- Dr Villaloobs-appreciate recs -MRI - R foot osteomyelitis, L foot no osteo #Decubitus ulcer Documented by nurse on presentation-Stage 4 sacral decubitus 6x4x2 with purulent drainage, foul smelling. Yet to see as patient declines inspection #ESRD Hemodialysis MWF- Dr Frey on board #DM Pt refusing insulin and BGMs Hgb A1c - 4 -A1C -ISS -BGM #History of depression, not on medications -was previously on zoloft, patient stopped taking it without MD instruction -Hx psych hospital admit in the past -psych consult- Dr Aleman #Dispo: Transfer to Med surg Dispo Planning for nursing home a/b -pending Dr Klein's recs and likely VNS Visit type - Emergency Visit Emergency Visit: Yes ED Registration Date: 01/31/18 Care time: The patient presented to the Emergency Department on the above date and was hospitalized for further evaluation of their emergent condition. - New Patient This patient is new to me today: No - Critical Care Critical Care patient: No - Discharge Referral Referred to [facility] Med [facility] No
[2018-02-07 10:17] LABS: ALBUMIN 1.9 g/dl (3.4-5.0); ANION GAP 7 (8-16); BILIRUBIN,TOTAL 0.5 mg/dL (0.2-1.0); BLOOD UREA NITROGEN 25 mg/dL (7-18); CALCIUM 7.6 mg/dL (8.5-10.1); CHLORIDE 103 mmol/L (98-107); CO2 28 mmol/L (21-32); CREATININE 5.9 mg/dL (0.7-1.3); GLUCOSE,RANDOM 114 mg/dL (74-106); MAGNESIUM 1.8 mg/dL (1.8-2.4); PHOSPHOROUS 2.1 mg/dL (2.5-4.9); POTASSIUM 3.1 mmol/L (3.5-5.1); SGOT/AST 5 U/L (15-37); SGPT/ALT 6 U/L (12-78); SODIUM 138 mmol/L (136-145)
[2018-02-07 10:18] LABS: ALK PHOS 74 U/L (45-117)
--- NOTE | 2018-02-07 11:37 | PN ---
Teaching Attending Note Name of Resident: Vianca Da Silva ATTENDING PHYSICIAN STATEMENT I saw and evaluated the patient. I reviewed the resident's note and discussed the case with the resident. I agree with the resident's findings and plan as documented. SUBJECTIVE:asymptomatic. states his rash is resolving. no pain in his foot. denies CP, SOB, fever, chills, N/V/C/D OBJECTIVE: Last Vital Signs Temp Pulse Resp BP Pulse Ox 99.0 F 94 H 16 147/96 98 02/07/18 08:00 02/07/18 11:05 02/07/18 11:05 02/07/18 11:02/06/18 21:00 General NAD CV S1 S2 + murmur lungs CTA anteriorly Abdomen soft NT/ND obese Extremities trace pitting edema. B/L Feet wrapped with dressing c/d/i Skin desquamation of skin on the face and chest ASSESSMENT AND PLAN: 52 yo M with PMHx of DM, depression, vancomycin allergy, wheelchair dependence, ESRD on hemodialysis for 3 years, right diabetic foot ulcers, and fecal incontinence admitted with non healing right foot diabetic ulcer with cellulitis 1. Septic shock due to R heel ulcer with surrounding cellulitis- s/p bedside debridement/wound vac 02/02. MRI now +R calcaneous OM. Podiatry and ID discussing about possible bone bx. awaiting to hear from ID. now off pressors for 72H. on Ceftaroline day 6. podiatry and ID on board 2.Drug reaction- due to meropenem. now resolved. team spoke with derm via phone yesterday and can f/u with infection control specialist as outpatinet 3. RUE catheter related occlusive cephalic vein thrombosis- no further intervention necessary. vasc surgery on board 4. hypokalemia- gettting HD today. to be adjusted with HD 5. hypophosphatemia- plan for HD today. to be adjusted with HD 6. ESRD on HD- cont HD per normal schedule. nephro on board 7. Hx of DM- A1c 4.3 here off medication. received insulin while in septic shock has not required coverage since. 8. Depression- no suicidal/homicidal thoughts at this time. can see psychiatrist as outpatient 9. DVT ppx- Hep sq 10. can d/c cardiac monitoring. transfer to floors. 11. spoke with present at bedside. all questions answered. does not want SNF placement. wants home infusions. will need long term care pharmacist abx and wound vac with VNS.
--- NOTE | 2018-02-07 14:43 | PN ---
Progress Note, Physician History of Present Illness: Pt seen and examined at bedside. He is awake and alert. He denies shortness of breath. He tolerated HD. - Current Medication List Current Medications: Active Medications Chlorhexidine Gluconate (Hibiclens For Decolonization -) 1 applic TP HS IRVIN Last Admin: 02/06/18 21:43 Dose: 1 applic Collagenase (Santyl -) 1 applic TP DAILY IRVIN Last Admin: 02/06/18 10:00 Dose: 1 applic Diphenhydramine HCl (Benadryl Injection -) 25 mg IVPUSH Q4H PRN PRN Reason: FOR ITCHING Last Admin: 02/02/18 17:06 Dose: 25 mg Heparin Sodium (Porcine) (Heparin -) 5,000 unit SQ TID IRVIN Last Admin: 02/07/18 13:38 Dose: 5,000 unit Sodium Chloride (Normal Saline -) 250 mls @ 3,000 mls/hr IV PRN PRN PRN Reason: Hypotension during Dialysis Stop: 02/05/18 14:59 - Objective Vital Signs: Vital Signs Temperature 98.8 F 02/07/18 13:29 Pulse Rate 84 02/07/18 13:11 Respiratory Rate 18 02/07/18 13:11 Blood Pressure 141/92 02/07/18 13:11 O2 Sat by Pulse Oximetry (%) 98 02/07/18 10:00 Constitutional: Yes: Calm Eyes: Yes: Conjunctiva Clear HENT: Yes: Atraumatic Cardiovascular: Yes: S1, S2 Respiratory: Yes: CTA Bilaterally Gastrointestinal: Yes: Soft Genitourinary: Yes: WNL Musculoskeletal: Yes: WNL Edema: No Integumentary: Yes: Rash Neurological: Yes: Oriented Psychiatric: Yes: Oriented Labs: CBC, BMP 02/07/18 09:15 02/07/18 09:15 Problem List - Problems (1) ESRD (end stage renal disease) Code(s): N18.6 - END STAGE RENAL DISEASE (2) Diabetic foot ulcer Code(s): E11.621 - TYPE 2 DIABETES MELLITUS WITH FOOT ULCER; L97.509 - NON- PRESSURE CHRONIC ULCER OTH PRT UNSP FOOT W UNSP SEVERITY Qualifiers: Diabetic foot ulcer location: heel Diabetes mellitus type: other specified (including JADON) Laterality: right Non-pressure ulcer stage: unspecified non -pressure ulcer stage Qualified Code(s): E13.621 - Other specified diabetes mellitus with foot ulcer; L97.419 - Non-pressure chronic ulcer of right heel and midfoot with unspecified severity Assessment/Plan Current Medications Generic Name Dose Route Start Last Admin Trade Name Freq PRN Reason Stop Dose Admin Chlorhexidine Gluconate 1 applic 02/01/18 22:00 02/06/18 21:43 Hibiclens For Decolonization - TP 1 applic HS IRVIN Administration Collagenase 1 applic 02/02/18 10:00 02/06/18 10:00 Santyl - TP 1 applic DAILY IRVIN Administration Diphenhydramine HCl 25 mg 02/02/18 05:33 02/02/18 17:06 Benadryl Injection - IVPUSH 25 mg Q4H PRN Administration FOR ITCHING Heparin Sodium (Porcine) 5,000 unit 02/02/18 14:00 02/07/18 13:38 Heparin - SQ 5,000 unit TID IRVIN Administration Sodium Chloride 250 mls @ 3,000 mls/hr 02/04/18 14:59 Normal Saline - IV 02/05/18 14:59 PRN PRN Hypotension during Dialysis Potassium Chloride 20 meq 02/07/18 14:41 K-Dur - PO 02/07/18 14:42 ONCE ONE Impression 1. ESRD 2. anemia 3. DFU 4. DM 5. sepsis 6. hypokalemia 7. hypotension 8. rash Plan - HD today - abx per ID - next HD on - will give a dose of potassium as he has been running low potassium - rash is improving - wound care to legs - HD AVF 4:15 abf 450 heparin 6000 with 1000 q hour, 2 k bath, [facility] [phone] - will follow Dr Frey
[2018-02-07] MEDS ORDERED: POTASSIUM CHLORIDE TABS 20 MEQ TABLET.ER (FP) PO ONE (15:15)
--- NOTE | 2018-02-07 20:08 | PN ---
Progress Note (short form) - Note Progress Note: Pt seen in bed in ICU. VSS. Seeing for b/l wounds. Feeling better. Scaling skin on his body. wounds b/l, heels, culture results multiple pathogens, -mal odor right, + resolved localized cellulitis, pseudomonas, klebsiella, proteus, staph, improved edema b/l feet, mri right +om, wbc=5.8, ehsi9r=9.3 r/o om r/o pvd r/o dm Grade 2-3 wounds b/l feet Vac to right heel pressure of 125 change q48hrs. Santyl to all other wounds. Discussed with Medicine and Dr. Klein. Want to DC antibiotics for 48 hrs and do bone biopsy of heel bedside. Patient has consented. Will follow.
[2018-02-07] MEDS: COLLAGENASE CLOSTRIDIUM HIST. 30 GRAMS TUBE TP SCH (21:22)
[2018-02-07] MEDS: CHLORHEXIDINE GLUCONATE 4% CLEANSER FOR DECOLONIZATION TP SCH (21:25)
[2018-02-08] MEDS: HEPARIN NA (PORCINE) 5,000 UNITS/ML 1ML VIAL SQ SCH ×4 (06:25→21:22)
--- NOTE | 2018-02-08 08:32 | PN ---
Physical Exam: SUBJECTIVE: Patient seen and examined. No new c/o, no fevers, no n/v. Received HD yesterday. Transferred to [facility]. OBJECTIVE: Vital Signs Period Temp Pulse Resp BP Sys/Gutierrez Pulse Ox Last 24 Hr 97.9 F-99.1 F 82-99 16-20 134-152/82-96 98-98 Vital Signs Temp 98.6 F 02/08/18 10:00 Pulse 96 H 02/08/18 10:00 Resp 20 02/08/18 10:00 BP 141/89 02/08/18 10:00 Pulse Ox 99 02/08/18 09:00 GENERAL: The patient is awake, alert, and fully oriented, in no acute distress. Desquamations on skin improving. HEAD: Desquamations LUNGS: Breath sounds equal, clear to auscultation bilaterally HEART: Regular rate and rhythm, S1, S2 ABDOMEN: Soft, nontender, nondistended, normoactive bowel sounds EXTREMITIES: Superficial L medial heal ulcer. Improving pedal edema. R heel ulcer on wound vac with minimally draining serosanguinous fluid NEUROLOGICAL: AAOx3. CBC, BMP 02/08/18 07:09 02/08/18 07:09 Laboratory Results - last 24 hr 02/06/18 02/06/18 02/07/18 12:18 16:44 09:15 WBC 5.8 RBC 3.57 L Hgb 10.3 L Hct 32.0 L MCV 89.5 MCH 28.9 MCHC 32.3 RDW 15.2 Plt Count 128 L MPV 8.2 Absolute Neuts (auto) 3.7 Neutrophils % 64.8 Lymphocytes % 24.1 Monocytes % 8.0 Eosinophils % 2.3 Basophils % 0.8 Nucleated RBC % 0 Sodium Potassium Chloride Carbon Dioxide Anion Gap BUN Creatinine Creat Clearance w eGFR POC Glucometer 113.72859 118.03779 Random Glucose Calcium Phosphorus Magnesium Total Bilirubin AST ALT Alkaline Phosphatase Total Protein Albumin 02/07/18 02/07/18 09:15 11:31 WBC RBC Hgb Hct MCV MCH MCHC RDW Plt Count MPV Absolute Neuts (auto) Neutrophils % Lymphocytes % Monocytes % Eosinophils % Basophils % Nucleated RBC % Sodium 138 Potassium 3.1 L Chloride 103 Carbon Dioxide 28 D Anion Gap 7 L BUN 25 H D Creatinine 5.9 H D Creat Clearance w eGFR 10.20 POC Glucometer 144.02554 Random Glucose 114 H D Calcium 7.6 L Phosphorus 2.1 L D Magnesium 1.8 Total Bilirubin 0.5 D AST 5 L D ALT 6 L D Alkaline Phosphatase 74 Total Protein 5.0 L Albumin 1.9 L Current Medications Collagenase (Santyl -) 1 applic TP DAILY IRVIN Last Admin: 02/08/18 10:56 Dose: 1 applic Diphenhydramine HCl (Benadryl Injection -) 25 mg IVPUSH Q4H PRN PRN Reason: FOR ITCHING Emollient Ointment (Aquaphor -) 1 applic TP BID PRN PRN Reason: FOR ITCHING Heparin Sodium (Porcine) (Heparin -) 5,000 unit SQ TID IRVIN Sodium Chloride (Normal Saline -) 250 mls @ 3,000 mls/hr IV PRN PRN PRN Reason: Hypotension during Dialysis Stop: 02/09/18 12:55 Potassium Phos/Sodium Phos (Phos-Nak Packet -) 2 packet PO ONCE ONE Stop: 02/08/18 13:17 Zinc Oxide/Panthenol/Vitamin E (Balmex Cream -) 1 applic TP ASDIR PRN PRN Reason: HYGEINE ASSESSMENT/PLAN: The patient is a 52 yo m w/ PMH DM (non compliant), psychiatric illness requiring admission, ESRD on HD (MWF) who was sent to the ED from the wound care clinic for evaluation of a worsening bilateral foot ulcers. #R heel osteomyelitis secondary to diabetic foot ulcer and immobility Cont iv ceftaroline Pending decision on outpatient antibiotic Cont wound vac and local wound care- per podiatry Vac to right heel pressure of 125 change q48hrs, Santyl to all other wounds. Pt off ceftaroline for 48hrs (since yesterday) for bone biopsy #Septic shock secondary to diabetic foot ulcers Resolved Pt off pressors and Iv fluids Local wound care - per podiatry #R hand swelling Occlusive thrombus within R cephalic vein near elbow No evidence of deep vein thrombosis Monitor # Generalized erythrodermic drug reaction Now desquamating Generalized skin redness and warmth with itching on previous antibiotic administration Resolving on ceftaroline Derm consult- D/W Dr Mejia- Per Dr Mejia- Desquamation indicates resolution of the reaction and a biopsy will not be helpful. It is likely an erythrodermic drug reaction to antibiotics, her recommendations are for him to follow an slot supervisor as an outpatient to determine the specific drug Previous reaction to vancomycin with skin flaking similar to current appearance Likely reaction to clindamycin 600mg, Zosyn and meropenem balmex and aquaphos #DM bilateral foot ulcer - Likely source of infection -ID consult- Dr Klein-apprec recs -Continue ceftaroline 600mg -Cont local wound mx per podiatry-Sent by Dr Terrazas, Dr Hackett on board -vascular surgery consult- Dr Villalobos-appreciate recs -MRI - R foot osteomyelitis, L foot no osteo #Decubitus ulcer Documented by nurse on presentation-Stage 4 sacral decubitus 6x4x2 with purulent drainage, foul smelling. Yet to see as patient declines inspection #ESRD Hemodialysis MWF- Dr Frey on board #DM Pt refusing insulin and BGMs. Was requiring insulin during sepsis Hgb A1c - 4 D/C BGMs and ISS with HgbA1c of $ #History of depression, not on medications -was previously on zoloft, patient stopped taking it without MD instruction -Hx psych hospital admit in the past -psych consult- Dr Aleman #Dispo: Cont Med surg For Bone biopsy , D/C planning with VNS and likely PICC and fci iv AB therapy Visit type - Emergency Visit Emergency Visit: Yes ED Registration Date: 01/31/18 Care time: The patient presented to the Emergency Department on the above date and was hospitalized for further evaluation of their emergent condition. - New Patient This patient is new to me today: No - Critical Care Critical Care patient: No - Discharge Referral Referred to [facility] Med P.C.: No
[2018-02-08 08:39] LABS: BASO % 0.5 % (0-2.0); EOS % 2.7 % (0-4.5); HEMATOCRIT 35.4 % (35.4-49); HEMOGLOBIN 11.3 GM/dL (11.7-16.9); LYMPH % 26.3 % (8-40); MCH 28.9 pg (25.7-33.7); MCHC 31.8 g/dl (32.0-35.9); MEAN CELL VOLUME 90.9 fl (80-96); MEAN PLT VOLUME 8.4 fl (7.5-11.1); NEUT % 59.5 % (42.8-82.8); PLATELET COUNT 132 K/MM3 (134-434); RDW 15.3 % (11.9-15.9); WHITE BLOOD COUNT 6.1 K/mm3 (4.0-10.0)
[2018-02-08] MEDS ORDERED: MINERAL OIL/PET HY-PHL TOPICAL OINTMENT 454 GM JAR TP PRN (09:15)
[2018-02-08 09:20] LABS: CHLORIDE 103 mmol/L (98-107); POTASSIUM 3.5 mmol/L (3.5-5.1); SODIUM 140 mmol/L (136-145)
[2018-02-08] MEDS ORDERED: PETROLATUM, WHITE 30 GM TUBE TP SCH (10:00)
[2018-02-08 10:38] LABS: ALK PHOS 78 U/L (45-117); ANION GAP 11 (8-16); BILIRUBIN,TOTAL 0.4 mg/dL (0.2-1.0); BLOOD UREA NITROGEN 25 mg/dL (7-18); CALCIUM 7.8 mg/dL (8.5-10.1); CO2 26 mmol/L (21-32); CREATININE 6.3 mg/dL (0.7-1.3); GLUCOSE,RANDOM 116 mg/dL (74-106); PHOSPHOROUS 2.2 mg/dL (2.5-4.9); SGOT/AST 5 U/L (15-37); TOT PROT 5.4 g/dl (6.4-8.2)
[2018-02-08] MEDS: COLLAGENASE CLOSTRIDIUM HIST. 30 GRAMS TUBE TP SCH (10:56)
[2018-02-08 10:58] LABS: MACROCYTOSIS 1+; OVALOCYTE 1+; PLATELET ESTIMATE DECREASED
[2018-02-08 11:28] LABS: SGPT/ALT < 6 U/L (12-78)
[2018-02-08] MEDS ORDERED: ZINC OXIDE/PANTHENOL/VITAMIN E 56 GM TUBE TP PRN (11:29)
[2018-02-08] MEDS ORDERED: SODIUM CHLORIDE 250 ML IV PRN (12:55)
--- NOTE | 2018-02-08 12:55 | PN ---
Progress Note, Physician History of Present Illness: Pt seen and examined at bedside. He is awake and alert. He denies shortness of breath. - Current Medication List Current Medications: Active Medications Collagenase (Santyl -) 1 applic TP DAILY [facility] Last Admin: 02/08/18 10:56 Dose: 1 applic Diphenhydramine HCl (Benadryl Injection -) 25 mg IVPUSH Q4H PRN PRN Reason: FOR ITCHING Emollient Ointment (Aquaphor -) 1 applic TP BID PRN PRN Reason: FOR ITCHING Heparin Sodium (Porcine) (Heparin -) 5,000 unit SQ TID IRVIN Zinc Oxide/Panthenol/Vitamin E (Balmex Cream -) 1 applic TP ASDIR PRN PRN Reason: HYGEINE - Objective Vital Signs: Vital Signs Temperature 98.6 F 02/08/18 10:00 Pulse Rate 96 H 02/08/18 10:00 Respiratory Rate 20 02/08/18 10:00 Blood Pressure 141/89 02/08/18 10:00 O2 Sat by Pulse Oximetry (%) 99 02/08/18 09:00 Constitutional: Yes: Calm Eyes: Yes: Conjunctiva Clear HENT: Yes: Atraumatic Neck: Yes: Supple Cardiovascular: Yes: S1, S2 Respiratory: Yes: CTA Bilaterally Gastrointestinal: Yes: Soft Genitourinary: Yes: WNL Musculoskeletal: Yes: WNL Edema: Yes Edema: LLE: Trace, RLE: Trace Integumentary: Yes: Rash, Other (improving) Neurological: Yes: Oriented Psychiatric: Yes: Oriented Labs: CBC, BMP 02/08/18 07:09 02/08/18 07:09 Problem List - Problems (1) ESRD (end stage renal disease) Code(s): N18.6 - END STAGE RENAL DISEASE (2) Diabetic foot ulcer Code(s): E11.621 - TYPE 2 DIABETES MELLITUS WITH FOOT ULCER; L97.509 - NON- PRESSURE CHRONIC ULCER OTH PRT UNSP FOOT W UNSP SEVERITY Qualifiers: Diabetic foot ulcer location: heel Diabetes mellitus type: other specified (including JADON) Laterality: right Non-pressure ulcer stage: unspecified non -pressure ulcer stage Qualified Code(s): E13.621 - Other specified diabetes mellitus with foot ulcer; L97.419 - Non-pressure chronic ulcer of right heel and midfoot with unspecified severity Assessment/Plan Current Medications Generic Name Dose Route Start Last Admin Trade Name Freq PRN Reason Stop Dose Admin Collagenase 1 applic 02/08/18 10:00 02/08/18 10:56 Santyl - TP 1 applic DAILY IRVIN Administration Diphenhydramine HCl 25 mg 02/08/18 07:37 Benadryl Injection - IVPUSH Q4H PRN FOR ITCHING Emollient Ointment 1 applic 02/08/18 09:15 Aquaphor - TP BID PRN FOR ITCHING Heparin Sodium (Porcine) 5,000 unit 02/08/18 14:00 Heparin - SQ TID IRVIN Zinc Oxide/Panthenol/Vitamin E 1 applic 02/08/18 11:29 Balmex Cream - TP ASDIR PRN HYGEINE Impression 1. ESRD 2. anemia 3. DFU 4. DM 5. sepsis 6. hypokalemia 7. hypotension 8. rash Plan - HD tomorrow - will dialyze on and Tuesday this week, he can go back to [facility] schedule next week - 3 k bath on HD - rash is improving - wound care to legs - HD AVF 4:15 abf 450 heparin 6000 with 1000 q hour, 2 k bath, [facility] [phone] - will follow Dr Frey
--- NOTE | 2018-02-08 13:16 | PN ---
Teaching Attending Note Name of Resident: Vianca Da Silva ATTENDING PHYSICIAN STATEMENT I saw and evaluated the patient. I reviewed the resident's note and discussed the case with the resident. I agree with the resident's findings and plan as documented. SUBJECTIVE:asymptomatic. denies CP, SOB, feverc, chills, N/V/C/D OBJECTIVE: Last Vital Signs Temp Pulse Resp BP Pulse Ox 98.6 F 96 H 20 141/89 99 02/08/18 10:00 02/08/18 10:00 02/08/18 10:00 02/08/18 10:00 02/08/18 09:00 General NAD Skin desquamation of skin on the face and chest ASSESSMENT AND PLAN: 52 yo M with PMHx of DM, depression, vancomycin allergy, wheelchair dependence, ESRD on hemodialysis for 3 years, right diabetic foot ulcers, and fecal incontinence admitted with non healing right foot diabetic ulcer with cellulitis 1. Septic shock due to R heel ulcer with surrounding cellulitis- s/p bedside debridement/wound vac 02/02. MRI now +R calcaneous OM. abx on hold. plan for bx tomorrow. will f/u bx and determine abx. will liekly require tunneled and intermediate manager ivabx. will need HBO as outpatient. podiatry and ID on board 2.Drug reaction- due to meropenem. now resolved. team spoke with derm via phone yesterday and can f/u with die designer as outpatient 3. RUE catheter related occlusive cephalic vein thrombosis- no further intervention necessary. vasc surgery on board 4. hypokalemia- improved 5. hypophosphatemia- neutraphos 6. ESRD on HD- cont HD per normal schedule. nephro on board 7. Hx of DM- A1c 4.3 here off medication. received insulin while in septic shock has not required coverage since. 8. Depression- no suicidal/homicidal thoughts at this time. can see psychiatrist as outpatient 9. DVT ppx- Hep sq 10. once abx are determined. plan is for d/c home with wound vac, VNS and infusion company for IV ABx.
[2018-02-08] MEDS ORDERED: PT OWN MED DRAWER 7, Y5N ONE (13:43)
[2018-02-08] MEDS ORDERED: NAPH,MB-DB/K PH,MBDB POWDER PACKET PO ONE (14:30)
--- NOTE | 2018-02-08 15:13 | PN ---
Progress Note, Physician History of Present Illness: patient doing well no complaints wound vac in place patient feeling much better - Current Medication List Current Medications: Active Medications Collagenase (Santyl -) 1 applic TP DAILY [facility]CLUDES [facility] Last Admin: 02/08/18 10:56 Dose: 1 applic Diphenhydramine HCl (Benadryl Injection -) 25 mg IVPUSH Q4H PRN PRN Reason: FOR ITCHING Emollient Ointment (Aquaphor -) 1 applic TP BID PRN PRN Reason: FOR ITCHING Heparin Sodium (Porcine) (Heparin -) 5,000 unit SQ TID COUNT INCLUDES THE [facility] Last Admin: 02/08/18 14:10 Dose: 5,000 unit Sodium Chloride (Normal Saline -) 250 mls @ 3,000 mls/hr IV PRN PRN PRN Reason: Hypotension during Dialysis Stop: 02/09/18 12:55 Zinc Oxide/Panthenol/Vitamin E (Balmex Cream -) 1 applic TP ASDIR PRN PRN Reason: HYGEINE Last Admin: 02/08/18 14:10 Dose: 1 applic - Objective Vital Signs: Vital Signs Temperature 98.6 F 02/08/18 15:02 Pulse Rate 92 H 02/08/18 15:02 Respiratory Rate 18 02/08/18 15:02 Blood Pressure 157/96 02/08/18 15:02 O2 Sat by Pulse Oximetry (%) 99 02/08/18 09:00 Constitutional: Yes: No Distress, Calm Cardiovascular: Yes: Regular Rate and Rhythm Respiratory: Yes: Regular, CTA Bilaterally Gastrointestinal: Yes: Normal Bowel Sounds, Soft Musculoskeletal: Yes: WNL Extremities: Yes: Other Wound/Incision: Yes: Other (wound vac in place) Neurological: Yes: Alert, Oriented Psychiatric: Yes: Alert, Oriented Labs: CBC, BMP 02/08/18 07:09 02/08/18 07:09 - ....Imaging MRI: Report Reviewed, Image Reviewed Assessment/Plan Problem List (1) Hypotension Code(s): I95.9 - HYPOTENSION, UNSPECIFIED (2) Diabetic foot ulcer Code(s): E11.621 - TYPE 2 DIABETES MELLITUS WITH FOOT ULCER; L97.509 - NON- PRESSURE CHRONIC ULCER OTH PRT UNSP FOOT W UNSP SEVERITY Qualifiers: Diabetic foot ulcer location: heel Diabetes mellitus type: other specified (including JADON) Laterality: right Non-pressure ulcer stage: unspecified non -pressure ulcer stage Qualified Code(s): E13.621 - Other specified diabetes mellitus with foot ulcer; L97.419 - Non-pressure chronic ulcer of right heel and midfoot with unspecified severity (3) ESRD (end stage renal disease) Code(s): N18.6 - END STAGE RENAL DISEASE Septic shock due to presumed LE diabetic foot ulcers. bilateral cellulitis of the leg osteo of the rt leg plan stop all abx for 48 hours patient will require bone biopsy to determine what abx to be given d/w podiatry and primary team once we ahve biopsy result final plan will be made
--- NOTE | 2018-02-08 15:14 | PN ---
Progress Note, Physician History of Present Illness: patient stable no complaints will get a biopsy of the bone - Current Medication List Current Medications: Active Medications Collagenase (Santyl -) 1 applic TP DAILY [facility] Last Admin: 02/08/18 10:56 Dose: 1 applic Diphenhydramine HCl (Benadryl Injection -) 25 mg IVPUSH Q4H PRN PRN Reason: FOR ITCHING Emollient Ointment (Aquaphor -) 1 applic TP BID PRN PRN Reason: FOR ITCHING Heparin Sodium (Porcine) (Heparin -) 5,000 unit SQ TID IRVIN Last Admin: 02/08/18 14:10 Dose: 5,000 unit Sodium Chloride (Normal Saline -) 250 mls @ 3,000 mls/hr IV PRN PRN PRN Reason: Hypotension during Dialysis Stop: 02/09/18 12:55 Zinc Oxide/Panthenol/Vitamin E (Balmex Cream -) 1 applic TP ASDIR PRN PRN Reason: HYGEINE Last Admin: 02/08/18 14:10 Dose: 1 applic - Objective Vital Signs: Vital Signs Temperature 98.6 F 02/08/18 15:02 Pulse Rate 92 H 02/08/18 15:02 Respiratory Rate 18 02/08/18 15:02 Blood Pressure 157/96 02/08/18 15:02 O2 Sat by Pulse Oximetry (%) 99 02/08/18 09:00 Constitutional: Yes: No Distress, Calm Cardiovascular: Yes: Regular Rate and Rhythm Respiratory: Yes: Regular, CTA Bilaterally Gastrointestinal: Yes: Normal Bowel Sounds, Soft Musculoskeletal: Yes: Other Extremities: Yes: Other Neurological: Yes: Alert, Oriented Psychiatric: Yes: Alert, Oriented Labs: CBC, BMP 02/08/18 07:09 02/08/18 07:09 Assessment/Plan Problem List (1) Hypotension Code(s): I95.9 - HYPOTENSION, UNSPECIFIED (2) Diabetic foot ulcer Code(s): E11.621 - TYPE 2 DIABETES MELLITUS WITH FOOT ULCER; L97.509 - NON- PRESSURE CHRONIC ULCER OTH PRT UNSP FOOT W UNSP SEVERITY Qualifiers: Diabetic foot ulcer location: heel Diabetes mellitus type: other specified (including JADON) Laterality: right Non-pressure ulcer stage: unspecified non -pressure ulcer stage Qualified Code(s): E13.621 - Other specified diabetes mellitus with foot ulcer; L97.419 - Non-pressure chronic ulcer of right heel and midfoot with unspecified severity (3) ESRD (end stage renal disease) Code(s): N18.6 - END STAGE RENAL DISEASE Septic shock due to presumed LE diabetic foot ulcers. bilateral cellulitis of the leg osteo of the rt leg plan will wait till the biopsy is done and we get the results then further plan rest continue current mgmt patient stable
[2018-02-08 15:25] VITALS: BMI 28.5
[2018-02-09] MEDS: HEPARIN NA (PORCINE) 5,000 UNITS/ML 1ML VIAL SQ SCH ×2 (08:56→14:48)
[2018-02-09] MEDS: COLLAGENASE CLOSTRIDIUM HIST. 30 GRAMS TUBE TP SCH (09:17)
--- NOTE | 2018-02-09 09:46 | PN ---
Progress Note (short form) - Note Progress Note: Feels OK. NO CP or SOB. For bone biopsy. Intake & Output 02/06/18 02/07/18 02/08/18 02/09/18 23:59 23:59 23:59 23:59 Intake Total 270 780 Balance 270 780 Weight 220 lb 1 oz 234 lb 222 lb 8 oz Last Vital Signs Temp Pulse Resp BP Pulse Ox 98.6 F 90 20 115/59 99 02/08/18 21:00 02/08/18 21:00 02/08/18 21:00 02/08/18 21:00 02/08/18 21:00 Active Medications Collagenase (Santyl -) 1 applic TP DAILY IRVIN Last Admin: 02/09/18 09:17 Dose: 1 applic Diphenhydramine HCl (Benadryl Injection -) 25 mg IVPUSH Q4H PRN PRN Reason: FOR ITCHING Emollient Ointment (Aquaphor -) 1 applic TP BID PRN PRN Reason: FOR ITCHING Heparin Sodium (Porcine) (Heparin -) 5,000 unit SQ TID [facility] Last Admin: 02/09/18 08:56 Dose: Not Given Sodium Chloride (Normal Saline -) 250 mls @ 3,000 mls/hr IV PRN PRN PRN Reason: Hypotension during Dialysis Stop: 02/09/18 12:55 Zinc Oxide/Panthenol/Vitamin E (Balmex Cream -) 1 applic TP ASDIR PRN PRN Reason: HYGEINE Last Admin: 02/08/18 14:10 Dose: 1 applic Constitutional: Yes: NAD Eyes: Yes: Conjunctiva Clear HENT: Yes: Atraumatic Cardiovascular: Yes: S1, S2 Respiratory: Yes: On Nasal O2 Gastrointestinal: Yes: Soft Genitourinary: Yes: WNL Musculoskeletal: Yes: WNL Edema: Yes Edema: LLE: 1+, RLE: 1+ Integumentary: Yes: Erythema, Tattoos Neurological: Yes: Oriented Psychiatric: Yes: Oriented Integumentary: Yes: No Erythema Wound/Incision: Yes: Dressing intact Labs: Laboratory Results - last 24 hr 02/08/18 02/08/18 07:09 07:09 Neutrophils % (Manual) 63.9 Band Neutrophils % 0.0 Lymphocytes % (Manual) 26.8 D Monocytes % (Manual) 8 Eosinophils % (Manual) 0.0 D Basophils % (Manual) 0.0 Myelocytes % (Man) 0 D Promyelocytes % (Man) 0 Blast Cells % (Manual) 0 Metamyelocytes 1 D Hypochromia 1+ Platelet Estimate Decreased Macrocytosis 1+ Ovalocytes 1+ Sodium 140 Potassium 3.5 Chloride 103 Carbon Dioxide 26 Anion Gap 11 BUN 25 H Creatinine 6.3 H Creat Clearance w eGFR 9.46 Random Glucose 116 H Calcium 7.8 L Phosphorus 2.2 L Magnesium 2.0 Total Bilirubin 0.4 AST 5 L ALT < 6 L Alkaline Phosphatase 78 Total Protein 5.4 L Albumin 2.0 L Problem List (1) Hypotension Code(s): I95.9 - HYPOTENSION, UNSPECIFIED (2) Diabetic foot ulcer Code(s): E11.621 - TYPE 2 DIABETES MELLITUS WITH FOOT ULCER; L97.509 - NON- PRESSURE CHRONIC ULCER OTH PRT UNSP FOOT W UNSP SEVERITY Qualifiers: Diabetic foot ulcer location: heel Diabetes mellitus type: other specified (including JADON) Laterality: right Non-pressure ulcer stage: unspecified non -pressure ulcer stage Qualified Code(s): E13.621 - Other specified diabetes mellitus with foot ulcer; L97.419 - Non-pressure chronic ulcer of right heel and midfoot with unspecified severity (3) ESRD (end stage renal disease) Code(s): N18.6 - END STAGE RENAL DISEASE Assessment/Plan Septic shock due to LE diabetic foot ulcers. For bone biopsy Wound care per surgical team ABX per ID O2 as needed VTE prophylaxis Glycemic control Dr Alonso
--- NOTE | 2018-02-09 10:29 | PN ---
Progress Note, Physician History of Present Illness: stable no new issues - Current Medication List Current Medications: Active Medications Collagenase (Santyl -) 1 applic TP DAILY IRVIN Last Admin: 02/09/18 09:17 Dose: 1 applic Diphenhydramine HCl (Benadryl Injection -) 25 mg IVPUSH Q4H PRN PRN Reason: FOR ITCHING Emollient Ointment (Aquaphor -) 1 applic TP BID PRN PRN Reason: FOR ITCHING Heparin Sodium (Porcine) (Heparin -) 5,000 unit SQ TID IRVIN Last Admin: 02/09/18 08:56 Dose: Not Given Sodium Chloride (Normal Saline -) 250 mls @ 3,000 mls/hr IV PRN PRN PRN Reason: Hypotension during Dialysis Stop: 02/09/18 12:55 Zinc Oxide/Panthenol/Vitamin E (Balmex Cream -) 1 applic TP ASDIR PRN PRN Reason: HYGEINE Last Admin: 02/08/18 14:10 Dose: 1 applic - Objective Vital Signs: Vital Signs Temperature 98.6 F 02/08/18 21:00 Pulse Rate 90 02/08/18 21:00 Respiratory Rate 20 02/08/18 21:00 Blood Pressure 115/59 02/08/18 21:00 O2 Sat by Pulse Oximetry (%) 99 02/08/18 21:00 Constitutional: Yes: No Distress, Calm Cardiovascular: Yes: Regular Rate and Rhythm Respiratory: Yes: Regular, CTA Bilaterally Gastrointestinal: Yes: Normal Bowel Sounds, Soft Musculoskeletal: Yes: Other Extremities: Yes: Other Wound/Incision: Yes: Other Neurological: Yes: Alert, Oriented Psychiatric: Yes: Alert, Oriented Labs: CBC, BMP 02/08/18 07:09 02/08/18 07:09 Assessment/Plan Problem List (1) Hypotension Code(s): I95.9 - HYPOTENSION, UNSPECIFIED (2) Diabetic foot ulcer Code(s): E11.621 - TYPE 2 DIABETES MELLITUS WITH FOOT ULCER; L97.509 - NON- PRESSURE CHRONIC ULCER OTH PRT UNSP FOOT W UNSP SEVERITY Qualifiers: Diabetic foot ulcer location: heel Diabetes mellitus type: other specified (including JADON) Laterality: right Non-pressure ulcer stage: unspecified non -pressure ulcer stage Qualified Code(s): E13.621 - Other specified diabetes mellitus with foot ulcer; L97.419 - Non-pressure chronic ulcer of right heel and midfoot with unspecified severity (3) ESRD (end stage renal disease) Code(s): N18.6 - END STAGE RENAL DISEASE Septic shock due to presumed LE diabetic foot ulcers. bilateral cellulitis of the leg osteo of the rt leg plan patient to get bone biopsy once we have the cx report will plan for abx duration will be 4-6 weeks
--- NOTE | 2018-02-09 10:37 | PN ---
Physical Exam: SUBJECTIVE: Patient seen and examined. No fevers overnight. Awaiting bone biopsy. Skin continues to desquamate. Still passing loose stool (chronic for him ). Cdiff negative OBJECTIVE: Vital Signs Period Temp Pulse Resp BP Sys/Gutierrez Pulse Ox Last 24 Hr 98.3 F-98.6 F 87-92 18-20 115-157/59-96 99 Vital Signs Temp 98.3 F 02/09/18 15:04 Pulse 78 02/09/18 15:04 Resp 20 02/09/18 15:04 BP 128/68 02/09/18 15:04 Pulse Ox 99 02/09/18 09:00 Intake & Output 02/08/18 02/09/18 02/09/18 23:59 11:59 23:59 Intake Total 780 30 Balance 780 30 Intake: Oral 780 30 Other: Voiding Method Incontinent Incontinent # Unmeasured Voids Void 1 Bowel Movement Yes Yes # Bowel Movements 3 Body Mass Index (BMI) 28.5 GENERAL: The patient is awake, alert, and fully oriented, in no acute distress. Generalized desquamation of skin LUNGS: Breath sounds equal, clear to auscultation bilaterally HEART: Regular rate and rhythm, S1, S2 without murmur ABDOMEN: Soft, nontender, nondistended, normoactive bowel sounds EXTREMITIES: 2+ pulses, warm, well-perfused, no edema. Wound Vac on R heel ulcer , L heel dressed NEUROLOGICAL: AAOx3. Moves all extremities. Normal speech, SKIN: Declines exam of decubitus ulcer CBC, BMP 02/08/18 07:09 02/08/18 07:09 Laboratory Results - last 24 hr 02/08/18 02/08/18 07:09 07:09 Neutrophils % (Manual) 63.9 Band Neutrophils % 0.0 Lymphocytes % (Manual) 26.8 D Monocytes % (Manual) 8 Eosinophils % (Manual) 0.0 D Basophils % (Manual) 0.0 Myelocytes % (Man) 0 D Promyelocytes % (Man) 0 Blast Cells % (Manual) 0 Metamyelocytes 1 D Hypochromia 1+ Platelet Estimate Decreased Macrocytosis 1+ Ovalocytes 1+ Carbon Dioxide 26 Anion Gap 11 BUN 25 H Creatinine 6.3 H Creat Clearance w eGFR 9.46 Random Glucose 116 H Calcium 7.8 L Phosphorus 2.2 L Magnesium 2.0 Total Bilirubin 0.4 AST 5 L ALT < 6 L Alkaline Phosphatase 78 Total Protein 5.4 L Albumin 2.0 L Active Medications Generic Name Dose Route Start Last Admin Trade Name Freq PRN Reason Stop Dose Admin Collagenase 1 applic 02/08/18 10:00 02/09/18 09:17 Santyl - TP 1 applic DAILY IRVIN Administration Diphenhydramine HCl 25 mg 02/08/18 07:37 Benadryl Injection - IVPUSH Q4H PRN FOR ITCHING Emollient Ointment 1 applic 02/08/18 09:15 Aquaphor - TP BID PRN FOR ITCHING Heparin Sodium (Porcine) 5,000 unit 02/08/18 14:00 02/09/18 08:56 Heparin - SQ Not Given TID [facility] Sodium Chloride 250 mls @ 3,000 mls/hr 02/08/18 12:55 Normal Saline - IV 02/09/18 12:55 PRN PRN Hypotension during Dialysis Zinc Oxide/Panthenol/Vitamin E 1 applic 02/08/18 11:29 02/08/18 14:10 Balmex Cream - TP 1 applic ASDIR PRN Administration HYGEINE Current Medications Ceftriaxone Sodium (Rocephin -) 2,000 mg IVPUSH DAILY IRVIN Collagenase (Santyl -) 1 applic TP DAILY [facility] Last Admin: 02/09/18 09:17 Dose: 1 applic Diphenhydramine HCl (Benadryl Injection -) 25 mg IVPUSH Q4H PRN PRN Reason: FOR ITCHING Emollient Ointment (Aquaphor -) 1 applic TP BID PRN PRN Reason: FOR ITCHING Heparin Sodium (Porcine) (Heparin -) 5,000 unit SQ TID IRVIN Last Admin: 02/09/18 14:48 Dose: 5,000 unit Zinc Oxide/Panthenol/Vitamin E (Balmex Cream -) 1 applic TP ASDIR PRN PRN Reason: HYGEINE Last Admin: 02/08/18 14:10 Dose: 1 applic ASSESSMENT/PLAN: The patient is a 52 yo m w/ PMH DM (not on medication), psychiatric illness requiring admission, ESRD on HD (MWF) who was sent to the ED from the wound care clinic for evaluation of a worsening bilateral foot ulcers. #R heel osteomyelitis secondary to diabetic foot ulcer and immobility s/p bone biopsy (02/09/18) D/W Dr Klein- 2g ceftriaxone daily pending biopsy results Cont wound vac and local wound care- per podiatry Vac to right heel pressure of 125 change q48hrs, Santyl to all other wounds. Pt was off ceftaroline for 48hrs for bone biopsy 02/09/18 #Septic shock secondary to diabetic foot ulcers Resolved Pt off pressors and Iv fluids Local wound care - per podiatry #R hand swelling Resolved Occlusive thrombus within R cephalic vein near elbow No evidence of deep vein thrombosis Monitor # Generalized erythrodermic drug reaction Now desquamating Generalized skin redness and warmth with itching on previous antibiotic administration Resolving on ceftaroline Derm consult- D/W Dr Mejia- Per Dr Mejia- Desquamation indicates resolution of the reaction and a biopsy will not be helpful. It is likely an erythrodermic drug reaction to antibiotics, her recommendations are for him to follow an department mgr as an outpatient to determine the specific drug Previous reaction to vancomycin with skin flaking similar to current appearance Likely reaction to clindamycin 600mg, Zosyn and meropenem balmex and aquaphos #DM bilateral foot ulcer - Likely source of infection -ID consult- Dr Klein-apprec recs -2g ceftriaxone daily pending biopsy results -Cont local wound mx per podiatry-Sent by Dr Terrazas, Dr Hackett on board -vascular surgery consult- Dr Villalobos-appreciate recs -MRI - R foot osteomyelitis, L foot no osteo #Decubitus ulcer Documented by nurse on presentation-Stage 4 sacral decubitus 6x4x2 with purulent drainage, foul smelling. Yet to see as patient declines inspection #ESRD Hemodialysis MWF- Dr Frey on board #DM Pt refusing insulin and BGMs. Was requiring insulin during sepsis Hgb A1c - 4 D/C BGMs and ISS with HgbA1c of 4 #History of depression, not on medications -was previously on zoloft, patient stopped taking it without MD instruction - psych hospital admit in the past -psych consult- Dr Aleman #Dispo: Cont Med surg Pending biopsy results for PICC and Iv AB with VNS Visit type - Emergency Visit Emergency Visit: Yes ED Registration Date: 01/31/18 Care time: The patient presented to the Emergency Department on the above date and was hospitalized for further evaluation of their emergent condition. - New Patient This patient is new to me today: No - Critical Care Critical Care patient: No - Discharge Referral Referred to [facility] Med [facility].: No
--- NOTE | 2018-02-09 13:20 | PN ---
Teaching Attending Note Name of Resident: Vianca Da Silva ATTENDING PHYSICIAN STATEMENT I saw and evaluated the patient. I reviewed the resident's note and discussed the case with the resident. I agree with the resident's findings and plan as documented. SUBJECTIVE:asymptomatic. denies CP, SOB, fever, chills, N/V/c/D OBJECTIVE: Last Vital Signs Temp Pulse Resp BP Pulse Ox 98.4 F 99 H 20 124/68 99 02/09/18 09:00 02/09/18 09:00 02/09/18 09:00 02/09/18 09:00 02/09/18 09:00 General NAD Skin desquamation of skin on the face and chest ASSESSMENT AND PLAN: 52 yo M with PMHx of DM, depression, vancomycin allergy, wheelchair dependence, ESRD on hemodialysis for 3 years, right diabetic foot ulcers, and fecal incontinence admitted with non healing right foot diabetic ulcer with cellulitis 1. Septic shock due to R heel ulcer with surrounding cellulitis- s/p bedside debridement/wound vac 02/02. MRI now +R calcaneous OM. abx on hold. Heel bx today. will f/u bx and determine abx. will liekly require tunneled and medical terminologist ivabx. will need HBO as outpatient. podiatry and ID on board 2.Drug reaction- due to meropenem. now resolved. team spoke with derm via phone yesterday and can f/u with insurance claims examiner as outpatient 3. RUE catheter related occlusive cephalic vein thrombosis- no further intervention necessary. vasc surgery on board 4. hypokalemia- improved 5. hypophosphatemia- resolved 6. ESRD on HD- cont HD per normal schedule. nephro on board 7. Hx of DM- A1c 4.3 here off medication. received insulin while in septic shock has not required coverage since. 8. Depression- no suicidal/homicidal thoughts at this time. can see psychiatrist as outpatient 9. DVT ppx- Hep sq 10. once abx are determined. plan is for d/c home with wound vac, VNS and infusion company for IV ABx.
--- NOTE | 2018-02-09 14:25 | PN ---
Progress Note, Physician History of Present Illness: Pt seen and examined at bedside. He is awake and alert. He says he feels well. He is refusing to go on HD today. He wants to dialyze tomorrow to get back on his schedule. - Current Medication List Current Medications: Active Medications Collagenase (Santyl -) 1 applic TP DAILY [facility] Last Admin: 02/09/18 09:17 Dose: 1 applic Diphenhydramine HCl (Benadryl Injection -) 25 mg IVPUSH Q4H PRN PRN Reason: FOR ITCHING Emollient Ointment (Aquaphor -) 1 applic TP BID PRN PRN Reason: FOR ITCHING Heparin Sodium (Porcine) (Heparin -) 5,000 unit SQ TID IRVIN Last Admin: 02/09/18 08:56 Dose: Not Given Zinc Oxide/Panthenol/Vitamin E (Balmex Cream -) 1 applic TP ASDIR PRN PRN Reason: HYGEINE Last Admin: 02/08/18 14:10 Dose: 1 applic - Objective Vital Signs: Vital Signs Temperature 98.4 F 02/09/18 09:00 Pulse Rate 99 H 02/09/18 09:00 Respiratory Rate 20 02/09/18 09:00 Blood Pressure 124/68 02/09/18 09:00 O2 Sat by Pulse Oximetry (%) 99 02/09/18 09:00 Constitutional: Yes: Calm Eyes: Yes: Conjunctiva Clear HENT: Yes: Atraumatic Neck: Yes: Supple Cardiovascular: Yes: S1, S2 Respiratory: Yes: CTA Bilaterally Gastrointestinal: Yes: WNL Genitourinary: Yes: WNL Musculoskeletal: Yes: WNL Edema: No Integumentary: Yes: Rash, Venous Stasis Changes Neurological: Yes: Oriented Psychiatric: Yes: Oriented Labs: CBC, BMP 02/08/18 07:09 02/08/18 07:09 Problem List - Problems (1) ESRD (end stage renal disease) Code(s): N18.6 - END STAGE RENAL DISEASE (2) Diabetic foot ulcer Code(s): E11.621 - TYPE 2 DIABETES MELLITUS WITH FOOT ULCER; L97.509 - NON- PRESSURE CHRONIC ULCER OTH PRT UNSP FOOT W UNSP SEVERITY Qualifiers: Diabetic foot ulcer location: heel Diabetes mellitus type: other specified (including JADON) Laterality: right Non-pressure ulcer stage: unspecified non -pressure ulcer stage Qualified Code(s): E13.621 - Other specified diabetes mellitus with foot ulcer; L97.419 - Non-pressure chronic ulcer of right heel and midfoot with unspecified severity Assessment/Plan Current Medications Generic Name Dose Route Start Last Admin Trade Name Freq PRN Reason Stop Dose Admin Collagenase 1 applic 02/08/18 10:00 02/09/18 09:17 Santyl - TP 1 applic DAILY IRVIN Administration Diphenhydramine HCl 25 mg 02/08/18 07:37 Benadryl Injection - IVPUSH Q4H PRN FOR ITCHING Emollient Ointment 1 applic 02/08/18 09:15 Aquaphor - TP BID PRN FOR ITCHING Heparin Sodium (Porcine) 5,000 unit 02/08/18 14:00 02/09/18 08:56 Heparin - SQ Not Given TID IRVIN Zinc Oxide/Panthenol/Vitamin E 1 applic 02/08/18 11:29 02/08/18 14:10 Balmex Cream - TP 1 applic ASDIR PRN Administration HYGEINE Impression 1. ESRD 2. anemia 3. DFU 4. DM 5. sepsis 6. hypokalemia 7. hypotension 8. rash Plan - changed HD orders for tomorrow - pt will start MWF schedule - 3 k bath on HD - rash is improved - follow bone biopsy - HD AVF 4:15 abf 450 heparin 6000 with 1000 q hour, 2 k bath, [facility] [phone] - will follow Dr Frey
[2018-02-09] MEDS ORDERED: CEFTAROLINE FOSAMIL ACETATE 200 MG in DEXTROSE 5%-WATER - 100 ML IVPB SCH (16:15)
[2018-02-09] MEDS ORDERED: CEFTAROLINE FOSAMIL ACETATE 600 MG in DEXTROSE 5%-WATER - 100 ML IVPB SCH (16:15)
[2018-02-09] MEDS ORDERED: PT OWN MED DRAWER 7, Y5N ONE ×2 (17:22→17:23)
[2018-02-09] MEDS ORDERED: DEXTROSE 5%-WATER 100 ML IVPB ONE (17:23)
[2018-02-09] MEDS: CEFTRIAXONE 2 GM in DEXTROSE 5%-WATER 100 ML IVPB SCH (18:02)
--- NOTE | 2018-02-09 23:56 | OP ---
Operative Note - Note: Operative Date: 02/09/18 Pre-Operative Diagnosis: osteomyelitis right heel Operation: Bone biopsy and culture right heel Findings: soft bone Post-Operative Diagnosis: Same as Pre-op Surgeon: Eliane Hackett Estimated Blood Loss (mls): 5 Instrument used (Debridements only): bone biopsy kit [employer] Operative Report Dictated: No
[2018-02-10] MEDS: HEPARIN NA (PORCINE) 5,000 UNITS/ML 1ML VIAL SQ SCH ×4 (00:47→22:19)
--- NOTE | 2018-02-10 11:04 | PN ---
Progress Note (short form) - Note Progress Note: seen while on dialysis no complaints Current Medications Amino Acids (Prosource No Carb Liquid Pkt) 30 ml PO BID@0800,1730 [facility] Last Admin: 02/10/18 17:42 Dose: Not Given Collagenase (Santyl -) 1 applic TP DAILY [facility] Last Admin: 02/10/18 14:21 Dose: 1 applic Diphenhydramine HCl (Benadryl Injection -) 25 mg IVPUSH Q4H PRN PRN Reason: FOR ITCHING Emollient Ointment (Aquaphor -) 1 applic TP BID PRN PRN Reason: FOR ITCHING Heparin Sodium (Porcine) (Heparin -) 5,000 unit SQ TID [facility] Last Admin: 02/10/18 22:19 Dose: Not Given Ceftriaxone Sodium 2 gm/ (Dextrose) 100 mls @ 200 mls/hr IVPB DAILY [facility] Last Admin: 02/10/18 14:21 Dose: 200 mls/hr Zinc Oxide/Panthenol/Vitamin E (Balmex Cream -) 1 applic TP ASDIR PRN PRN Reason: HYGEINE Last Admin: 02/08/18 14:10 Dose: 1 applic Last Vital Signs Temp Pulse Resp BP Pulse Ox 98.3 F 87 18 151/99 99 02/10/18 10:10 02/10/18 10:15 02/10/18 10:15 02/10/18 10:15 02/09/18 21:00 lungs clear heart reg abd soft ext no edema CBC, BMP 02/10/18 10:15 02/10/18 10:15 IMP- esrd stable on dialysis
[2018-02-10 11:37] LABS: BASO % 0.6 % (0-2.0); EOS % 2.3 % (0-4.5); HEMATOCRIT 31.5 % (35.4-49); HEMOGLOBIN 10.1 GM/dL (11.7-16.9); LYMPH % 23.2 % (8-40); MCH 28.8 pg (25.7-33.7); MCHC 32.1 g/dl (32.0-35.9); MEAN CELL VOLUME 89.7 fl (80-96); MEAN PLT VOLUME 8.7 fl (7.5-11.1); MONO % 8.2 % (3.8-10.2); NEUT % 65.7 % (42.8-82.8); PLATELET COUNT 137 K/MM3 (134-434); RBC 3.51 M/mm3 (4.00-5.60); RDW 15.5 % (11.9-15.9); WHITE BLOOD COUNT 6.3 K/mm3 (4.0-10.0)
[2018-02-10 12:34] LABS: CHLORIDE 104 mmol/L (98-107); POTASSIUM 3.5 mmol/L (3.5-5.1); SODIUM 139 mmol/L (136-145)
[2018-02-10 12:42] LABS: ANION GAP 10 (8-16); BLOOD UREA NITROGEN 34 mg/dL (7-18); CALCIUM 7.8 mg/dL (8.5-10.1); CO2 25 mmol/L (21-32); GLUCOSE,RANDOM 88 mg/dL (74-106); MAGNESIUM 2.1 mg/dL (1.8-2.4)
[2018-02-10 13:08] LABS: PLATELET ESTIMATE DECREASED
[2018-02-10 13:24] LABS: CREATININE 8.9 mg/dL (0.7-1.3)
--- NOTE | 2018-02-10 13:51 | PN ---
Teaching Attending Note Name of Resident: Vianca Da Silva ATTENDING PHYSICIAN STATEMENT I saw and evaluated the patient. I reviewed the resident's note and discussed the case with the resident. I agree with the resident's findings and plan as documented. SUBJECTIVE:asymptomatic. denies Cp, SOB, fever, chills, N/V/C/D OBJECTIVE: Last Vital Signs Temp Pulse Resp BP Pulse Ox 98.3 F 94 H 18 139/79 99 02/10/18 10:10 02/10/18 13:35 02/10/18 13:35 02/10/18 13:35 02/09/18 21:00 General NAD Skin clear ASSESSMENT AND PLAN: 52 yo M with PMHx of DM, depression, vancomycin allergy, wheelchair dependence, ESRD on hemodialysis for 3 years, right diabetic foot ulcers, and fecal incontinence admitted with non healing right foot diabetic ulcer with cellulitis 1. Septic shock due to R heel ulcer with surrounding cellulitis- s/p bedside debridement/wound vac 02/02. MRI now +R calcaneous OM. s/p Heel bx 02/09. placed on ceftriaxone. will wiat for bx to determine abx. will liekly require tunneled and ad terminal makeup operator ivabx. will need HBO as outpatient. podiatry and ID on board 2.Drug reaction- due to meropenem. now resolved. team spoke with derm via phone yesterday and can f/u with cert occupational therapy asst as outpatient 3. RUE catheter related occlusive cephalic vein thrombosis- no further intervention necessary. vasc surgery on board 4. hypokalemia- improved 5. hypophosphatemia- resolved 6. ESRD on HD- cont HD per normal schedule. nephro on board 7. Hx of DM- A1c 4.3 here off medication. received insulin while in septic shock has not required coverage since. 8. Depression- no suicidal/homicidal thoughts at this time. can see psychiatrist as outpatient 9. DVT ppx- Hep sq 10. once abx are determined. plan is for d/c home with wound vac, VNS and infusion company for IV ABx.
[2018-02-10] MEDS ORDERED: DEXTROSE 5%-WATER 100 ML IVPB ONE (14:16)
[2018-02-10] MEDS: CEFTRIAXONE 2 GM in DEXTROSE 5%-WATER 100 ML IVPB SCH (14:21)
[2018-02-10] MEDS: COLLAGENASE CLOSTRIDIUM HIST. 30 GRAMS TUBE TP SCH (14:21)
--- NOTE | 2018-02-10 15:30 | PN ---
Physical Exam: SUBJECTIVE: Patient seen and examined. No new c/o, no fevers overnight. Got bone biopsy yesterday and started on ceftriaxone. Now pending bone biopsy reports. OBJECTIVE: Vital Signs Period Temp Pulse Resp BP Sys/Gutierrez Pulse Ox Last 24 Hr 97.8 F-99.3 F 82-94 18-129 92-164/57-101 99 Vital Signs Temp 98.4 F 02/10/18 14:55 Pulse 93 H 02/10/18 14:55 Resp 20 02/10/18 14:55 BP 164/87 02/10/18 14:55 Pulse Ox 99 02/09/18 21:00 Intake & Output 02/09/18 02/10/18 02/10/18 23:59 11:59 23:59 Intake Total 100 Balance 100 Weight 98.089 kg Intake: IVPB 100 Other: Voiding Method Incontinent # Unmeasured Voids Void 0 Bowel Movement Yes: Small Yes: Small Yes # Bowel Movements 1 1 Weight Measurement Method Built in [facility] GENERAL: The patient is awake, alert, and fully oriented, in no acute distress. Minimal desquamation of skin LUNGS: Breath sounds equal, clear to auscultation bilaterally HEART: Regular rate and rhythm, S1, S2 ABDOMEN: Soft, nontender, nondistended, normoactive bowel sounds EXTREMITIES: Both heels dressed. Dry clean NEUROLOGICAL: AAOx3. Normal speech, moves all extremities. CBC, BMP 02/10/18 10:15 02/10/18 10:15 Laboratory Results - last 24 hr 02/10/18 02/10/18 10:15 10:15 WBC 6.3 RBC 3.51 L Hgb 10.1 L D Hct 31.5 L MCV 89.7 MCH 28.8 MCHC 32.1 RDW 15.5 Plt Count 137 MPV 8.7 Absolute Neuts (auto) 4.1 Neutrophils % 65.7 Neutrophils % (Manual) 63.0 Band Neutrophils % 2.0 Lymphocytes % 23.2 Lymphocytes % (Manual) 25.0 Monocytes % 8.2 Monocytes % (Manual) 5 Eosinophils % 2.3 Eosinophils % (Manual) 4.0 D Basophils % 0.6 Basophils % (Manual) 0.0 Myelocytes % (Man) 1 D Promyelocytes % (Man) 0 Blast Cells % (Manual) 0 Nucleated RBC % 0 Metamyelocytes 0 D Platelet Estimate Decreased Sodium 139 Potassium 3.5 Chloride 104 Carbon Dioxide 25 Anion Gap 10 BUN 34 H D Creatinine 8.9 H* D Random Glucose 88 D Calcium 7.8 L Phosphorus 3.0 D Magnesium 2.1 Active Medications Generic Name Dose Route Start Last Admin Trade Name Freq PRN Reason Stop Dose Admin Amino Acids 30 ml 02/10/18 17:30 Prosource No Carb Liquid Pkt PO BID@0800,1730 [facility] Collagenase 1 applic 02/08/18 10:00 02/10/18 14:21 Santyl - TP 1 applic DAILY IRVIN Administration Diphenhydramine HCl 25 mg 02/08/18 07:37 Benadryl Injection - IVPUSH Q4H PRN FOR ITCHING Emollient Ointment 1 applic 02/08/18 09:15 Aquaphor - TP BID PRN FOR ITCHING Heparin Sodium (Porcine) 5,000 unit 02/08/18 14:00 02/10/18 15:11 Heparin - SQ Not Given TID [facility] Ceftriaxone Sodium 2 gm/ 100 mls @ 200 mls/hr 02/09/18 16:30 02/10/18 14:21 Dextrose IVPB 200 mls/hr DAILY [facility] Administration Zinc Oxide/Panthenol/Vitamin E 1 applic 02/08/18 11:29 02/08/18 14:10 Balmex Cream - TP 1 applic ASDIR PRN Administration HYGEINE Current Medications Amino Acids (Prosource No Carb Liquid Pkt) 30 ml PO BID@0800,1730 [facility] Last Admin: 02/10/18 17:42 Dose: Not Given Collagenase (Santyl -) 1 applic TP DAILY [facility] Last Admin: 02/10/18 14:21 Dose: 1 applic Diphenhydramine HCl (Benadryl Injection -) 25 mg IVPUSH Q4H PRN PRN Reason: FOR ITCHING Emollient Ointment (Aquaphor -) 1 applic TP BID PRN PRN Reason: FOR ITCHING Heparin Sodium (Porcine) (Heparin -) 5,000 unit SQ TID [facility] Last Admin: 02/10/18 15:11 Dose: Not Given Ceftriaxone Sodium 2 gm/ (Dextrose) 100 mls @ 200 mls/hr IVPB DAILY [facility] Last Admin: 02/10/18 14:21 Dose: 200 mls/hr Zinc Oxide/Panthenol/Vitamin E (Balmex Cream -) 1 applic TP ASDIR PRN PRN Reason: HYGEINE Last Admin: 02/08/18 14:10 Dose: 1 applic Microbiology 02/09/18 15:00 Bone Gram Stain - Final 02/09/18 15:00 Bone Tissue Culture - Preliminary NO AEROBIC GROWTH, 24 HRS 02/07/18 19:00 Stool Clostridium difficile (PCR) - Preliminary 01/31/18 17:19 Blood - Peripheral Venous Blood Culture - Final NO GROWTH AFTER 5 DAYS INCUBATION 01/31/18 17:19 Blood - Peripheral Venous Blood Culture - Final NO GROWTH AFTER 5 DAYS INCUBATION 02/04/18 18:00 Stool Clostridium difficile Antigen (GEM) - Final 02/04/18 18:00 Stool Clostridium difficile Toxin Assay - Final ASSESSMENT/PLAN: The patient is a 52 yo m w/ PMH DM (not on medication), psychiatric illness requiring admission, ESRD on HD (MWF) who was sent to the ED from the wound care clinic for evaluation of a worsening bilateral foot ulcers. #R heel osteomyelitis secondary to diabetic foot ulcer and immobility s/p bone biopsy (02/09/18) continue- 2g ceftriaxone daily pending biopsy results Cont wound vac and local wound care- per podiatry Vac to right heel pressure of 125 change q48hrs, Santyl to all other wounds. Pt was off ceftaroline for 48hrs for bone biopsy 02/09/18 #Septic shock secondary to diabetic foot ulcers Resolved Pt off pressors and Iv fluids Local wound care - per podiatry #R hand swelling Resolved Occlusive thrombus within R cephalic vein near elbow No evidence of deep vein thrombosis Monitor # Generalized erythrodermic drug reaction Now desquamating Generalized skin redness and warmth with itching on previous antibiotic administration Resolving on ceftaroline Derm consult- D/W Dr Mejia- Per Dr Mejia- Desquamation indicates resolution of the reaction and a biopsy will not be helpful. It is likely an erythrodermic drug reaction to antibiotics, her recommendations are for him to follow an stone driller as an outpatient to determine the specific drug Previous reaction to vancomycin with skin flaking similar to current appearance Likely reaction to clindamycin 600mg, Zosyn and meropenem balmex and aquaphos #DM bilateral foot ulcer - Likely source of infection -ID consult- Dr Klein-apprec recs -2g ceftriaxone daily pending biopsy results -Cont local wound mx per podiatry-Sent by Dr Terrazas, Dr Hackett on board -vascular surgery consult- Dr Villalobos-appreciate recs -MRI - R foot osteomyelitis, L foot no osteo #Decubitus ulcer Documented by nurse on presentation-Stage 4 sacral decubitus 6x4x2 with purulent drainage, foul smelling. Yet to see as patient declines inspection #ESRD Hemodialysis MWF- Dr Frey on board #DM Pt refusing insulin and BGMs. Was requiring insulin during sepsis Hgb A1c - 4 D/C BGMs and ISS with HgbA1c of 4 #History of depression, not on medications -was previously on zoloft, patient stopped taking it without MD instruction -Hx psych hospital admit in the past -psych consult- Dr Aleman #Dispo: Cont Med surg Pending biopsy results for PICC and Iv AB with VNS Visit type - Emergency Visit Emergency Visit: Yes ED Registration Date: 01/31/18 Care time: The patient presented to the Emergency Department on the above date and was hospitalized for further evaluation of their emergent condition. - New Patient This patient is new to me today: No - Critical Care Critical Care patient: No - Discharge Referral Referred to [facility] No
[2018-02-10] MEDS: AMINO ACIDS/PROTEIN HYDROLYS 30 ML LIQUID.PKT PO SCH (17:42)
[2018-02-11] MEDS: HEPARIN NA (PORCINE) 5,000 UNITS/ML 1ML VIAL SQ SCH ×3 (06:49→21:58)
[2018-02-11] MEDS ORDERED: PT OWN MED DRAWER 7, Y5N ONE (07:56)
[2018-02-11] MEDS: AMINO ACIDS/PROTEIN HYDROLYS 30 ML LIQUID.PKT PO SCH ×2 (08:05→17:12)
--- NOTE | 2018-02-11 08:05 | PN ---
Progress Note (short form) - Note Progress Note: no complaints. denies Cp, SOB, fever, chills, N/V/C/D Current Medications Generic Name Dose Route Start Last Admin Trade Name Freq PRN Reason Stop Dose Admin Amino Acids 30 ml 02/10/18 17:30 02/10/18 17:42 Prosource No Carb Liquid Pkt PO Not Given BID@0800,1730 IRVIN Collagenase 1 applic 02/08/18 10:00 02/10/18 14:21 Santyl - TP 1 applic DAILY IRVIN Administration Diphenhydramine HCl 25 mg 02/08/18 07:37 Benadryl Injection - IVPUSH Q4H PRN FOR ITCHING Emollient Ointment 1 applic 02/08/18 09:15 Aquaphor - TP BID PRN FOR ITCHING Heparin Sodium (Porcine) 5,000 unit 02/08/18 14:00 02/10/18 22:19 Heparin - SQ Not Given TID IRVIN Ceftriaxone Sodium 2 gm/ 100 mls @ 200 mls/hr 02/09/18 16:30 02/10/18 14:21 Dextrose IVPB 200 mls/hr DAILY IRVIN Administration Zinc Oxide/Panthenol/Vitamin E 1 applic 02/08/18 11:29 02/08/18 14:10 Balmex Cream - TP 1 applic ASDIR PRN Administration HYGEINE Last Vital Signs Temp Pulse Resp BP Pulse Ox 98.1 F 91 H 18 116/68 99 02/10/18 22:00 02/10/18 22:00 02/10/18 22:00 02/10/18 22:00 02/10/18 21:00 General NAD CV S1 S2 + Lungs CTA B/L no wheezing/rales/rhonchi Abdomen soft NT/ND Extremities LUE +palpable thrill Skin some skin peeling on the wrists. nothing noted on the face Microbiology 02/09/18 15:00 Bone Gram Stain - Final 02/09/18 15:00 Bone Tissue Culture - Preliminary NO AEROBIC GROWTH, 24 HRS 02/07/18 19:00 Stool Clostridium difficile (PCR) - Preliminary 01/31/18 17:19 Blood - Peripheral Venous Blood Culture - Final NO GROWTH AFTER 5 DAYS INCUBATION 01/31/18 17:19 Blood - Peripheral Venous Blood Culture - Final NO GROWTH AFTER 5 DAYS INCUBATION 02/04/18 18:00 Stool Clostridium difficile Antigen (GEM) - Final 02/04/18 18:00 Stool Clostridium difficile Toxin Assay - Final ASSESSMENT AND PLAN: 52 yo M with PMHx of DM, depression, vancomycin allergy, wheelchair dependence, ESRD on hemodialysis for 3 years, right diabetic foot ulcers, and fecal incontinence admitted with non healing right foot diabetic ulcer with cellulitis 1. Septic shock due to R heel ulcer with surrounding cellulitis- s/p bedside debridement/wound vac 02/02. MRI now +R calcaneous OM. s/p Heel bx 02/09. placed on ceftriaxone. will wiat for bx to determine abx. will likely require tunneled and medical terminologist ivabx. will need HBO as outpatient. podiatry and ID on board 2.Drug reaction- due to meropenem. now resolved. team spoke with derm via phone yesterday and can f/u with talent acquisition assistant as outpatient 3. RUE catheter related occlusive cephalic vein thrombosis- no further intervention necessary. vasc surgery on board 4. hypokalemia- improved 5. hypophosphatemia- resolved 6. ESRD on HD- cont HD per normal schedule. nephro on board 7. Hx of DM- A1c 4.3 here off medication. received insulin while in septic shock has not required coverage since. 8. Depression- no suicidal/homicidal thoughts at this time. can see psychiatrist as outpatient 9. DVT ppx- Hep sq 10. once abx are determined. plan is for d/c home with wound vac, VNS and infusion company for IV ABx. Visit type - Emergency Visit Emergency Visit: Yes ED Registration Date: 01/31/18 Care time: The patient presented to the Emergency Department on the above date and was hospitalized for further evaluation of their emergent condition. - New Patient This patient is new to me today: No - Critical Care Critical Care patient: No - Discharge Referral Referred to [facility] Med P.C.: No
--- NOTE | 2018-02-11 08:55 | PN ---
Progress Note, Physician History of Present Illness: patient stable being dialysed no complaints bone biopsy done - Current Medication List Current Medications: Active Medications Amino Acids (Prosource No Carb Liquid Pkt) 30 ml PO BID@0800,1730 [facility] Last Admin: 02/11/18 08:05 Dose: Not Given Collagenase (Santyl -) 1 applic TP DAILY [facility] Last Admin: 02/10/18 14:21 Dose: 1 applic Diphenhydramine HCl (Benadryl Injection -) 25 mg IVPUSH Q4H PRN PRN Reason: FOR ITCHING Emollient Ointment (Aquaphor -) 1 applic TP BID PRN PRN Reason: FOR ITCHING Heparin Sodium (Porcine) (Heparin -) 5,000 unit SQ TID [facility] Last Admin: 02/10/18 22:19 Dose: Not Given Ceftriaxone Sodium 2 gm/ (Dextrose) 100 mls @ 200 mls/hr IVPB DAILY [facility] Last Admin: 02/10/18 14:21 Dose: 200 mls/hr Zinc Oxide/Panthenol/Vitamin E (Balmex Cream -) 1 applic TP ASDIR PRN PRN Reason: HYGEINE Last Admin: 02/08/18 14:10 Dose: 1 applic - Objective Vital Signs: Vital Signs Temperature 98.1 F 02/10/18 22:00 Pulse Rate 91 H 02/10/18 22:00 Respiratory Rate 18 02/10/18 22:00 Blood Pressure 116/68 02/10/18 22:00 O2 Sat by Pulse Oximetry (%) 99 02/10/18 21:00 Constitutional: Yes: No Distress, Calm Cardiovascular: Yes: Regular Rate and Rhythm Respiratory: Yes: Regular, CTA Bilaterally Gastrointestinal: Yes: Normal Bowel Sounds, Soft Musculoskeletal: Yes: WNL Extremities: Yes: Other Neurological: Yes: Alert, Oriented Psychiatric: Yes: Alert, Oriented Labs: CBC, BMP 02/10/18 10:15 02/10/18 10:15 Assessment/Plan Problem List (1) Hypotension Code(s): I95.9 - HYPOTENSION, UNSPECIFIED (2) Diabetic foot ulcer Code(s): E11.621 - TYPE 2 DIABETES MELLITUS WITH FOOT ULCER; L97.509 - NON- PRESSURE CHRONIC ULCER OTH PRT UNSP FOOT W UNSP SEVERITY Qualifiers: Diabetic foot ulcer location: heel Diabetes mellitus type: other specified (including JADON) Laterality: right Non-pressure ulcer stage: unspecified non -pressure ulcer stage Qualified Code(s): E13.621 - Other specified diabetes mellitus with foot ulcer; L97.419 - Non-pressure chronic ulcer of right heel and midfoot with unspecified severity (3) ESRD (end stage renal disease) Code(s): N18.6 - END STAGE RENAL DISEASE Septic shock due to presumed LE diabetic foot ulcers. bilateral cellulitis of the leg osteo of the rt leg plan continue abx await for cx reports rest continue current mgmt once we have the reports final plan will be made
--- NOTE | 2018-02-11 08:56 | PN ---
Progress Note, Physician History of Present Illness: patient stable no new issues feeling much better - Current Medication List Current Medications: Active Medications Amino Acids (Prosource No Carb Liquid Pkt) 30 ml PO BID@0800,1730 [facility] Last Admin: 02/11/18 08:05 Dose: Not Given Collagenase (Santyl -) 1 applic TP DAILY [facility] Last Admin: 02/10/18 14:21 Dose: 1 applic Diphenhydramine HCl (Benadryl Injection -) 25 mg IVPUSH Q4H PRN PRN Reason: FOR ITCHING Emollient Ointment (Aquaphor -) 1 applic TP BID PRN PRN Reason: FOR ITCHING Heparin Sodium (Porcine) (Heparin -) 5,000 unit SQ TID [facility] Last Admin: 02/10/18 22:19 Dose: Not Given Ceftriaxone Sodium 2 gm/ (Dextrose) 100 mls @ 200 mls/hr IVPB DAILY [facility] Last Admin: 02/10/18 14:21 Dose: 200 mls/hr Zinc Oxide/Panthenol/Vitamin E (Balmex Cream -) 1 applic TP ASDIR PRN PRN Reason: HYGEINE Last Admin: 02/08/18 14:10 Dose: 1 applic - Objective Vital Signs: Vital Signs Temperature 98.1 F 02/10/18 22:00 Pulse Rate 91 H 02/10/18 22:00 Respiratory Rate 18 02/10/18 22:00 Blood Pressure 116/68 02/10/18 22:00 O2 Sat by Pulse Oximetry (%) 99 02/10/18 21:00 Constitutional: Yes: No Distress, Calm Cardiovascular: Yes: Regular Rate and Rhythm Respiratory: Yes: Regular, CTA Bilaterally Gastrointestinal: Yes: Normal Bowel Sounds, Soft Musculoskeletal: Yes: WNL Extremities: Yes: Other Neurological: Yes: Alert, Oriented Psychiatric: Yes: Alert, Oriented Labs: CBC, BMP 02/10/18 10:15 02/10/18 10:15 Assessment/Plan Problem List (1) Hypotension Code(s): I95.9 - HYPOTENSION, UNSPECIFIED (2) Diabetic foot ulcer Code(s): E11.621 - TYPE 2 DIABETES MELLITUS WITH FOOT ULCER; L97.509 - NON- PRESSURE CHRONIC ULCER OTH PRT UNSP FOOT W UNSP SEVERITY Qualifiers: Diabetic foot ulcer location: heel Diabetes mellitus type: other specified (including JADON) Laterality: right Non-pressure ulcer stage: unspecified non -pressure ulcer stage Qualified Code(s): E13.621 - Other specified diabetes mellitus with foot ulcer; L97.419 - Non-pressure chronic ulcer of right heel and midfoot with unspecified severity (3) ESRD (end stage renal disease) Code(s): N18.6 - END STAGE RENAL DISEASE Septic shock due to presumed LE diabetic foot ulcers. bilateral cellulitis of the leg osteo of the rt leg cx report noted await for finalization of the reports plan continue abx will need it for another 4 weeks rest continue current mgmt wound care
[2018-02-11] MEDS ORDERED: DEXTROSE 5%-WATER 100 ML IVPB ONE (09:39)
[2018-02-11] MEDS: CEFTRIAXONE 2 GM in DEXTROSE 5%-WATER 100 ML IVPB SCH (09:42)
[2018-02-11] MEDS: COLLAGENASE CLOSTRIDIUM HIST. 30 GRAMS TUBE TP SCH (09:56)
--- NOTE | 2018-02-11 23:33 | PN ---
Progress Note (short form) - Note Progress Note: seen while on dialysis no complaints Current Medications Amino Acids (Prosource No Carb Liquid Pkt) 30 ml PO BID@0800,1730 [facility] Last Admin: 02/11/18 17:12 Dose: Not Given Collagenase (Santyl -) 1 applic TP DAILY [facility] Last Admin: 02/11/18 09:56 Dose: 1 applic Diphenhydramine HCl (Benadryl Injection -) 25 mg IVPUSH Q4H PRN PRN Reason: FOR ITCHING Emollient Ointment (Aquaphor -) 1 applic TP BID PRN PRN Reason: FOR ITCHING Heparin Sodium (Porcine) (Heparin -) 5,000 unit SQ TID [facility] Last Admin: 02/11/18 21:58 Dose: Not Given Ceftriaxone Sodium 2 gm/ (Dextrose) 100 mls @ 200 mls/hr IVPB DAILY [facility] Last Admin: 02/11/18 09:42 Dose: 200 mls/hr Zinc Oxide/Panthenol/Vitamin E (Balmex Cream -) 1 applic TP ASDIR PRN PRN Reason: HYGEINE Last Admin: 02/08/18 14:10 Dose: 1 applic Last Vital Signs Temp Pulse Resp BP Pulse Ox 98.4 F 94 H 20 126/74 99 02/11/18 16:30 02/11/18 16:30 02/11/18 16:30 02/11/18 16:30 02/10/18 21:00 lungs clear heart reg abd soft ext no edema IMP- esrd stable on dialysis
[2018-02-12] MEDS: HEPARIN NA (PORCINE) 5,000 UNITS/ML 1ML VIAL SQ SCH ×3 (05:50→21:23)
[2018-02-12] MEDS: AMINO ACIDS/PROTEIN HYDROLYS 30 ML LIQUID.PKT PO SCH ×2 (08:18→17:50)
--- NOTE | 2018-02-12 09:17 | PN ---
Progress Note (short form) - Note Progress Note: no complaints. denies Cp, SOB, fever, chills, N/V/C/D Current Medications Generic Name Dose Route Start Last Admin Trade Name Freq PRN Reason Stop Dose Admin Amino Acids 30 ml 02/10/18 17:30 02/12/18 08:18 Prosource No Carb Liquid Pkt PO Not Given BID@0800,1730 IRVIN Collagenase 1 applic 02/08/18 10:00 02/11/18 09:56 Santyl - TP 1 applic DAILY IRVIN Administration Diphenhydramine HCl 25 mg 02/08/18 07:37 Benadryl Injection - IVPUSH Q4H PRN FOR ITCHING Emollient Ointment 1 applic 02/08/18 09:15 Aquaphor - TP BID PRN FOR ITCHING Heparin Sodium (Porcine) 5,000 unit 02/08/18 14:00 02/12/18 05:50 Heparin - SQ Not Given TID IRVIN Ceftriaxone Sodium 2 gm/ 100 mls @ 200 mls/hr 02/09/18 16:30 02/11/18 09:42 Dextrose IVPB 200 mls/hr DAILY IRVIN Administration Zinc Oxide/Panthenol/Vitamin E 1 applic 02/08/18 11:29 02/08/18 14:10 Balmex Cream - TP 1 applic ASDIR PRN Administration HYGEINE Last Vital Signs Temp Pulse Resp BP Pulse Ox 97.9 F 99 H 20 128/74 98 02/12/18 06:00 02/11/18 22:00 02/11/18 22:00 02/11/18 22:00 02/11/18 21:00 General NAD CV S1 S2 + Lungs CTA B/L no wheezing/rales/rhonchi Abdomen soft NT/ND Extremities LUE +palpable thrill Skin some skin peeling on the wrists. nothing noted on the face Microbiology 02/09/18 15:00 Gram Stain - Final Bone Tissue Culture - Final NO GROWTH OF AEROBIC ORGANISMS AFTER 48 HOURS INCUBATION Anaerobic Culture - Final NO ANAEROBES WERE ISOLATED ASSESSMENT AND PLAN: 52 yo M with PMHx of DM, depression, vancomycin allergy, wheelchair dependence, ESRD on hemodialysis for 3 years, right diabetic foot ulcers, and fecal incontinence admitted with non healing right foot diabetic ulcer with cellulitis 1. Septic shock due to R heel ulcer with surrounding cellulitis- s/p bedside debridement/wound vac 02/02. MRI now +R calcaneous OM. s/p Heel bx 02/09. Bx negative. will d/c on ceftriaxone for an additioanl 4 weeks. will require tunneled and jail ivabx. will need HBO as outpatient. podiatry and ID on board 2.Drug reaction- due to meropenem. now resolved. team spoke with derm via phone yesterday and can f/u with machine preservative filler as outpatient 3. RUE catheter related occlusive cephalic vein thrombosis- no further intervention necessary. vasc surgery on board 4. hypokalemia- improved 5. hypophosphatemia- resolved 6. ESRD on HD- cont HD per normal schedule. nephro on board 7. Hx of DM- A1c 4.3 here off medication. received insulin while in septic shock has not required coverage since. does not follow diabetic diet. 8. Depression- no suicidal/homicidal thoughts at this time. can see psychiatrist as outpatient 9. DVT ppx- Hep sq 10. d/c planning for the am with tunneled catheter and wound vac Visit type - Emergency Visit Emergency Visit: Yes ED Registration Date: 01/31/18 Care time: The patient presented to the Emergency Department on the above date and was hospitalized for further evaluation of their emergent condition. - New Patient This patient is new to me today: No - Critical Care Critical Care patient: No - Discharge Referral Referred to [facility] Med P.C.: No
[2018-02-12] MEDS ORDERED: DEXTROSE 5%-WATER 100 ML IVPB ONE (10:25)
--- NOTE | 2018-02-12 10:36 | PN ---
Progress Note, Physician History of Present Illness: stable no new issues cx result noted - Current Medication List Current Medications: Active Medications Amino Acids (Prosource No Carb Liquid Pkt) 30 ml PO BID@0800,1730 [facility] Last Admin: 02/12/18 08:18 Dose: Not Given Collagenase (Santyl -) 1 applic TP DAILY [facility] Last Admin: 02/11/18 09:56 Dose: 1 applic Diphenhydramine HCl (Benadryl Injection -) 25 mg IVPUSH Q4H PRN PRN Reason: FOR ITCHING Emollient Ointment (Aquaphor -) 1 applic TP BID PRN PRN Reason: FOR ITCHING Heparin Sodium (Porcine) (Heparin -) 5,000 unit SQ TID [facility] Last Admin: 02/12/18 05:50 Dose: Not Given Ceftriaxone Sodium 2 gm/ (Dextrose) 100 mls @ 200 mls/hr IVPB DAILY [facility] Last Admin: 02/11/18 09:42 Dose: 200 mls/hr Zinc Oxide/Panthenol/Vitamin E (Balmex Cream -) 1 applic TP ASDIR PRN PRN Reason: HYGEINE Last Admin: 02/08/18 14:10 Dose: 1 applic - Objective Vital Signs: Vital Signs Temperature 97.9 F 02/12/18 06:00 Pulse Rate 99 H 02/11/18 22:00 Respiratory Rate 20 02/11/18 22:00 Blood Pressure 128/74 02/11/18 22:00 O2 Sat by Pulse Oximetry (%) 98 02/11/18 21:00 Constitutional: Yes: No Distress, Calm Cardiovascular: Yes: Regular Rate and Rhythm Respiratory: Yes: Regular, CTA Bilaterally Gastrointestinal: Yes: Normal Bowel Sounds, Soft Musculoskeletal: Yes: WNL Extremities: Yes: Other Neurological: Yes: Alert, Oriented Psychiatric: Yes: Alert, Oriented Labs: CBC, BMP 02/10/18 10:15 02/10/18 10:15 Assessment/Plan Problem List (1) Hypotension Code(s): I95.9 - HYPOTENSION, UNSPECIFIED (2) Diabetic foot ulcer Code(s): E11.621 - TYPE 2 DIABETES MELLITUS WITH FOOT ULCER; L97.509 - NON- PRESSURE CHRONIC ULCER OTH PRT UNSP FOOT W UNSP SEVERITY Qualifiers: Diabetic foot ulcer location: heel Diabetes mellitus type: other specified (including JADON) Laterality: right Non-pressure ulcer stage: unspecified non -pressure ulcer stage Qualified Code(s): E13.621 - Other specified diabetes mellitus with foot ulcer; L97.419 - Non-pressure chronic ulcer of right heel and midfoot with unspecified severity (3) ESRD (end stage renal disease) Code(s): N18.6 - END STAGE RENAL DISEASE Septic shock due to presumed LE diabetic foot ulcers. bilateral cellulitis of the leg osteo of the rt leg cx report noted await for finalization of the reports plan continue abx will need it for another 4 weeks might see if i can change abx to dialysis schedule rest continue current mgmt
[2018-02-12] MEDS: CEFTRIAXONE 2 GM in DEXTROSE 5%-WATER 100 ML IVPB SCH (10:42)
[2018-02-12] MEDS: COLLAGENASE CLOSTRIDIUM HIST. 30 GRAMS TUBE TP SCH (13:03)
--- NOTE | 2018-02-12 23:00 | PN ---
Progress Note (short form) - Note Progress Note: Pt seen in bed. Feeling better. Improved Scaling skin on his body. Patient alert and oriented. wounds b/l, heels, +vac in place right heel, -mal odor right, +resolved localized cellulitis,mproved edema b/l feet, mri right +om, no growth for OM bone cuture. wbc=6.3, bbok4a=3.3 om pvd Grade 1-2 wounds b/l feet Vac to right heel pressure of 125 change q48hrs. Continue Santyl to all other wounds. Will follow.
[2018-02-13] MEDS: HEPARIN NA (PORCINE) 5,000 UNITS/ML 1ML VIAL SQ SCH ×2 (07:25→15:50)
[2018-02-13] MEDS: AMINO ACIDS/PROTEIN HYDROLYS 30 ML LIQUID.PKT PO SCH (08:53)
--- NOTE | 2018-02-13 09:08 | PN ---
Progress Note (short form) - Note Progress Note: Pt seen in bed in dialysis unit. Eager to go home. wounds b/l, heels, +vac in place right heel, -mal odor right, +resolved localized cellulitis, no growth for OM bone cuture. wbc=6.3, onrg2v=8.3 om pvd Grade 1-2 wounds b/l feet Vac to right heel pressure of 125 change q48hrs. Continue Santyl to all other wounds. Will follow. Patient can go home from Podiatry standpoint as long as ID and Medicine agree and no other comorbidities are active that cannot be managed outpatient. VNS at home for vac dressing changes and santyl dressing changes left heel. HBO consult today for outpatient hbo.
--- NOTE | 2018-02-13 10:31 | PN ---
Progress Note, Physician History of Present Illness: stable no new issues cx result noted - Current Medication List Current Medications: Active Medications Amino Acids (Prosource No Carb Liquid Pkt) 30 ml PO BID@0800,1730 [facility] Last Admin: 02/13/18 08:53 Dose: Not Given Collagenase (Santyl -) 1 applic TP DAILY [facility] Last Admin: 02/12/18 13:03 Dose: Not Given Diphenhydramine HCl (Benadryl Injection -) 25 mg IVPUSH Q4H PRN PRN Reason: FOR ITCHING Emollient Ointment (Aquaphor -) 1 applic TP BID PRN PRN Reason: FOR ITCHING Heparin Sodium (Porcine) (Heparin -) 5,000 unit SQ TID [facility] Last Admin: 02/13/18 07:25 Dose: Not Given Ceftriaxone Sodium 2 gm/ (Dextrose) 100 mls @ 200 mls/hr IVPB DAILY [facility] Last Admin: 02/12/18 10:42 Dose: 200 mls/hr Zinc Oxide/Panthenol/Vitamin E (Balmex Cream -) 1 applic TP ASDIR PRN PRN Reason: HYGEINE Last Admin: 02/08/18 14:10 Dose: 1 applic - Objective Vital Signs: Vital Signs Temperature 98.1 F 02/13/18 07:45 Pulse Rate 90 02/13/18 10:20 Respiratory Rate 20 02/13/18 10:20 Blood Pressure 80/56 02/13/18 10:20 O2 Sat by Pulse Oximetry (%) 98 02/12/18 21:00 Constitutional: Yes: No Distress, Calm Cardiovascular: Yes: Regular Rate and Rhythm Respiratory: Yes: Regular, CTA Bilaterally Gastrointestinal: Yes: Normal Bowel Sounds, Soft Musculoskeletal: Yes: WNL Extremities: Yes: Other Wound/Incision: Yes: Clean/Dry Neurological: Yes: Alert, Oriented Psychiatric: Yes: Alert, Oriented Labs: CBC, BMP 02/10/18 10:15 02/10/18 10:15 Assessment/Plan Problem List (1) Hypotension Code(s): I95.9 - HYPOTENSION, UNSPECIFIED (2) Diabetic foot ulcer Code(s): E11.621 - TYPE 2 DIABETES MELLITUS WITH FOOT ULCER; L97.509 - NON- PRESSURE CHRONIC ULCER OTH PRT UNSP FOOT W UNSP SEVERITY Qualifiers: Diabetic foot ulcer location: heel Diabetes mellitus type: other specified (including JADON) Laterality: right Non-pressure ulcer stage: unspecified non -pressure ulcer stage Qualified Code(s): E13.621 - Other specified diabetes mellitus with foot ulcer; L97.419 - Non-pressure chronic ulcer of right heel and midfoot with unspecified severity (3) ESRD (end stage renal disease) Code(s): N18.6 - END STAGE RENAL DISEASE Septic shock due to presumed LE diabetic foot ulcers. bilateral cellulitis of the leg osteo of the rt leg cx report noted plan continue abx will need it for another 4 weeks cefazolin during dialysis 2 2 3 rest continue current mgmt
--- NOTE | 2018-02-13 11:28 | PATH ---
Surgical Pathology Report Patient Name: FLORESITA GEORGES Med. Rec. #: [id number] /Age/Gender: 1965 (Age: 52) / M Account: [id number] Location: [facility] MED/SURG Taken: 02/09/2018 Received: 02/10/2018 Reported: 02/13/2018 Physicians: Eliane Hackett DPM Specimen(s) Received OSTEOMYLITIS RIGHT HEEL Clinical History Osteomyelitis Final Diagnosis HEEL, RIGHT, BIOPSY: SMALL FRAGMENT OF BONE AND FATTY MARROW ADMIXED WITH BLOOD. NO FEATURES OF ACUTE OSTEOMYELITIS IDENTIFIED. Electronically Signed Blanquita Fagan M.D. Gross Description Received in formalin, labeled "osteomyelitis right heel" are multiple tiny portions of tissue measuring 0.8 x 0.8 x 0.1 cm. in aggregate. The specimen is submitted in toto in one cassette after decalcification. MIKE/02/10/2018 sara/02/10/2018
[2018-02-13] MEDS ORDERED: DEXTROSE 5%-WATER 100 ML IVPB ONE (11:30)
[2018-02-13] MEDS: COLLAGENASE CLOSTRIDIUM HIST. 30 GRAMS TUBE TP SCH (12:03)
[2018-02-13] MEDS: CEFTRIAXONE 2 GM in DEXTROSE 5%-WATER 100 ML IVPB SCH (12:03)
[2018-02-13 12:54] VITALS: BP 120/81; PULSE 90; TEMP 98
--- NOTE | 2018-02-13 13:26 | DS ---
Physical Exam: SUBJECTIVE: Patient seen and examined. No new c/o, no fevers, no SOB. Feels good. Results of bone biopsy out over the weekend ( no growth)with discussions on likely going home on an antibiotic that may be dosed with dialysis. Pt had dialysis earlier in preparation for going home. OBJECTIVE: Vital Signs Period Temp Pulse Resp BP Sys/Gutierrez Pulse Ox Last 24 Hr 98 F-98.6 F 80-97 18-20 80-122/44-81 98 PHYSICAL EXAM GENERAL: The patient is awake, alert, and fully oriented, in no acute distress,. HEAD: Normal with no signs of trauma. LUNGS: Breath sounds equal, clear to auscultation bilaterally HEART: Regular rate and rhythm, S1, S2 without murmur ABDOMEN: Soft, nontender, nondistended, normoactive bowel sounds EXTREMITIES: 2+ pulses, warm, well-perfused, no edema. NEUROLOGICAL: AAOx3, no facial droop. Normal tone and strength both UE bilaterally. Normal speech, gait not observed. LABS Laboratory Last Values WBC 6.3 K/mm3 (4.0-10.0) 02/10/18 10:15 RBC 3.51 M/mm3 (4.00-5.60) L 02/10/18 10:15 Hgb 10.1 GM/dL (11.7-16.9) L D 02/10/18 10:15 Hct 31.5 % (35.4-49) L 02/10/18 10:15 MCV 89.7 fl (80-96) 02/10/18 10:15 MCH 28.8 pg (25.7-33.7) 02/10/18 10:15 MCHC 32.1 g/dl (32.0-35.9) 02/10/18 10:15 RDW 15.5 % (11.9-15.9) 02/10/18 10:15 Plt Count 137 K/MM3 (134-434) 02/10/18 10:15 MPV 8.7 fl (7.5-11.1) 02/10/18 10:15 Absolute Neuts (auto) 4.1 # 02/10/18 10:15 Neutrophils % 65.7 % (42.8-82.8) 02/10/18 10:15 Neutrophils % (Manual) 63.0 % (42.8-82.8) 02/10/18 10:15 Band Neutrophils % 2.0 % 02/10/18 10:15 Lymphocytes % 23.2 % (8-40) 02/10/18 10:15 Lymphocytes % (Manual) 25.0 % (8-40) 02/10/18 10:15 Monocytes % 8.2 % (3.8-10.2) 02/10/18 10:15 Monocytes % (Manual) 5 % (3.8-10.2) 02/10/18 10:15 Eosinophils % 2.3 % (0-4.5) 02/10/18 10:15 Eosinophils % (Manual) 4.0 % (0-4.5) D 02/10/18 10:15 Basophils % 0.6 % (0-2.0) 02/10/18 10:15 Basophils % (Manual) 0.0 % (0-2.0) 02/10/18 10:15 Myelocytes % (Man) 1 % (0-2) D 02/10/18 10:15 Promyelocytes % (Man) 0 % (0-2) 02/10/18 10:15 Blast Cells % (Manual) 0 % (0-0) 02/10/18 10:15 Nucleated RBC % 0 % (0-0) 02/10/18 10:15 Metamyelocytes 0 % (0-2) D 02/10/18 10:15 Hypochromia 1+ 02/08/18 07:09 Toxic Granulation 0 02/06/18 09:50 Dohle Bodies 0 02/06/18 09:50 Platelet Estimate Decreased 02/10/18 10:15 Polychromasia 0 02/06/18 09:50 Poikilocytosis 0 02/06/18 09:50 Basophilic Stippling 0 02/06/18 09:50 Anisocytosis 0 02/06/18 09:50 Microcytosis 0 02/06/18 09:50 Macrocytosis 1+ 02/08/18 07:09 Spherocytes 0 02/06/18 09:50 Sickle Cells 0 02/06/18 09:50 Target Cells 0 02/06/18 09:50 Tear Drop Cells 0 02/06/18 09:50 Ovalocytes 1+ 02/08/18 07:09 Stomatocytes 0 02/06/18 09:50 Helmet Cells 0 02/06/18 09:50 [place] Bodies 0 02/06/18 09:50 [place] Rings 0 02/06/18 09:50 [place] Cells 0 02/06/18 09:50 Acanthocytes (Spur) 0 02/06/18 09:50 Rouleaux 0 02/06/18 09:50 Fragmented RBCs 0 02/06/18 09:50 Schistocytes 0 02/06/18 09:50 Sodium 139 mmol/L (136-145) 02/10/18 10:15 Potassium 3.5 mmol/L (3.5-5.1) 02/10/18 10:15 Chloride 104 mmol/L (98-107) 02/10/18 10:15 Carbon Dioxide 25 mmol/L (21-32) 02/10/18 10:15 Anion Gap 10 (8-16) 02/10/18 10:15 BUN 34 mg/dL (7-18) H D 02/10/18 10:15 Creatinine 8.9 mg/dL (0.7-1.3) H* D 02/10/18 10:15 Creat Clearance w eGFR 9.46 (>60) 02/08/18 07:09 POC Glucometer 144.53942 UNITS (80-120) 02/07/18 11:31 Random Glucose 88 mg/dL (74-106) D 02/10/18 10:15 Hemoglobin A1c % 4.3 % (4.8-6.0) L D 02/03/18 06:00 Calcium 7.8 mg/dL (8.5-10.1) L 02/10/18 10:15 Phosphorus 3.0 mg/dL (2.5-4.9) D 02/10/18 10:15 Magnesium 2.1 mg/dL (1.8-2.4) 02/10/18 10:15 Total Bilirubin 0.4 mg/dL (0.2-1.0) 02/08/18 07:09 AST 5 U/L (15-37) L 02/08/18 07:09 ALT < 6 U/L (12-78) L 02/08/18 07:09 Alkaline Phosphatase 78 U/L (45-117) 02/08/18 07:09 Total Protein 5.4 g/dl (6.4-8.2) L 02/08/18 07:09 Albumin 2.0 g/dl (3.4-5.0) L 02/08/18 07:09 Hepatitis A Ab Total Negative (Negative) 02/03/18 13:30 Hep Bs Antigen Negative (Negative) 02/03/18 13:30 Hep Bs Antibody Non reactive (.) 02/03/18 13:30 Hep B Core Total Ab Positive (Negative) H 02/03/18 13:30 Hep C Ab Diagnostic 0.1 s/co ratio (0.0-0.9) 02/03/18 13:30 Liver Fibrosis Interp (.) 02/03/18 13:30 Microbiology 02/07/18 19:00 Stool Clostridium difficile (PCR) - Final 02/09/18 15:00 Bone Gram Stain - Final 02/09/18 15:00 Bone Tissue Culture - Final NO GROWTH OF AEROBIC ORGANISMS AFTER 48 HOURS INCUBATION 02/09/18 15:00 Bone Anaerobic Culture - Final NO ANAEROBES WERE ISOLATED 01/31/18 17:19 Blood - Peripheral Venous Blood Culture - Final NO GROWTH AFTER 5 DAYS INCUBATION 01/31/18 17:19 Blood - Peripheral Venous Blood Culture - Final NO GROWTH AFTER 5 DAYS INCUBATION 02/04/18 18:00 Stool Clostridium difficile Antigen (GEM) - Final 02/04/18 18:00 Stool Clostridium difficile Toxin Assay - Final MRI-02/04/18- R foot- Osteomyelitis of R calcaneus HOSPITAL COURSE: Date of Admission:01/31/18 Date of Discharge: 02/13/18 The patient is a 52 yo m w/ PMH DM (not on medication), psychiatric illness requiring admission, ESRD on HD (MWF) who was sent to the ED from the wound care clinic for evaluation of a worsening bilateral foot ulcers. Pt was noted to have R heel osteomyelitis secondary to diabetic foot ulcer and immobility on MRI fof R foot. Pt went into septic shock, received bedside debridement of the wounds, was transferred to ICU, received levophed and fluids and antibiotics. Pt received meropenem and was noted to have generalized erythrodermic drug reaction based on discussions with ostomy care nurse- Dr Mejia (red and burning skin, with itching). Prior to meropenem, pt had also receivedclindamycin and Zosyn. The skin redness and itching resolved with benadryl, with skin desquamation noted days after discontinuation of meropenem and initiation of ceftaroline. Pt was recommended to see an nutrition internship as an outpatient to confirm which medication(s) he is allergic too. He had a similar reaction to vancomycin in the past. No initial cultures were available for sensitivites, so antibiotics were held for 48hrs after resolution of sepsis and a bone biopsy was done on 02/09/18, but was negative. Pt was changed to ceftriaxone following the biopsy but sent home on ceftaroline with dialysis as 2 2 3 schedule for 4 weeks. Pt was discharged home with VNS to continue wound vac and local wound care on R heel- per podiatry Vac to right heel pressure of 125 change q48hrs, Santyl to all other wounds (L foot). Pt noted to have R hand swelling with Occlusive thrombus within R cephalic vein near elbow and no evidence of deep vein thrombosis, that resolved spontaneously. Pt had a decubitus ulcer documented by nurse on presentation-Stage 4 sacral decubitus 6x4x2 with purulent drainage, foul smelling. Pt declined my inspection of the ulcer and intermittently allowed it to be dressed by the nurses. He continued his scheduled for Hemodialysis- MWF for ESRD overseen by Dr Frey Pt reported a hx of diabetes in the past, but now controlled off medications. He required insulin coverage using ISS ACHS during the sepsis, but his Hgb A1c was He reported a history of depression, but was not on medications (was previously on zoloft, patient stopped taking it without MD instruction). He was seen by psych consult- Dr Aleman and was noted not to be suicidal He was discharged home with VNS and wound vac to his R heel, and ceftaroline with dialysis at 2g, 2g, then 3g. Minutes to complete discharge: 50 Discharge Summary Reason For Visit: DIABETIC FOOT ULCER Current Active Problems Diabetic foot ulcer (Acute) ESRD (end stage renal disease) (Acute) Hypotension (Acute) Condition: Improved - Instructions Diet, Activity, Other Instructions: You came in with infections of both heels and were found to have osteomyelitis of the R heel You are going home on cefazolin 2g with dialysis (), then 3g (fridays) for the next 4 weeks Continue with your hemodialysis as scheduled You are going home with a visiting nurse and will have wound vac applied at pressure of 125 every 48 hrs to the R heel You need wound dressing with santyl on the L heel You will continue hyperbaric oxygen therapy as an outpatient Please follow Dr Hackett in one week as an outpatient We are adding prosource for you daily You needed insulin when your blood pressure was low with severe infection But your HgbA1c is 4 so you do not need insulin at home at this time We noted you reacted to antibiotics: We are sure that you react to vancomycin and meropenem See an nutrition internship as an outpatient to confirm if you are also allergic to clindamycin or zosyn You provided a history of depression in the past, You may follow up as an outpatient with the Psychiatrist- Dr Aleman Follow up with your primary care physician in one week If you think your symptoms are not getting better, with foul smelling wounds, high grade fever, despite being on the antibiotic,please return to the emergency room Referrals: Salinas Aleman MD [Staff Physician] - 2 Weeks (Psychiatrist- for depression) Fam Villalta [Primary Care Provider] - 1 Week David Klein MD [Staff Physician] - 2 Weeks Eliane Hackett DPM [Staff Physician] - 1 Week Disposition: VNS/HOME HEALTH CARE - Home Medications Comprehensive Discharge Medication List: Ambulatory Orders Amino Acids/Protein Hydrolys [Prosource No Carb Liquid Pkt] 30 ml PO BID@0800, 1730 #60 packet 02/13/18 Cefazolin Sodium in 0.9 % NaCl [Cefazolin 2 G/50 ml-0.9% NaCl] 2 gm IV ASDIR # 11 piggyback 02/13/18 Cefazolin Sodium in 0.9 % NaCl [Cefazolin 3 gm/100Ml-0.9% NaCl] 3 gm IV ASDIR # 4 piggyback 02/13/18 Collagenase Clostridium Hist. [Santyl -] 1 applic TP DAILY #2 tube 02/13/18 This patient is new to me today: No Emergency Visit: Yes ED Registration Date: 01/31/18 Care time: The patient presented to the Emergency Department on the above date and was hospitalized for further evaluation of their emergent condition. Critical Care patient: No - Discharge Referral Referred to [facility] Med P.C.: No
--- NOTE | 2018-02-13 13:27 | PN ---
Teaching Attending Note Name of Resident: Vianca Da Silva ATTENDING PHYSICIAN STATEMENT I saw and evaluated the patient. I reviewed the resident's note and discussed the case with the resident. I agree with the resident's findings and plan as documented. SUBJECTIVE:asymptomatic. no symptoms with low BP this Am. denies Cp, SOB, fever , chills, N/V/C/D OBJECTIVE: Last Vital Signs Temp Pulse Resp BP Pulse Ox 98 F 90 18 120/81 98 02/13/18 11:30 02/13/18 11:30 02/13/18 11:30 02/13/18 11:30 02/12/18 21:00 General NAD ASSESSMENT AND PLAN: 52 yo M with PMHx of DM, depression, vancomycin allergy, wheelchair dependence, ESRD on hemodialysis for 3 years, right diabetic foot ulcers, and fecal incontinence admitted with non healing right foot diabetic ulcer with cellulitis 1. Septic shock due to R heel ulcer with surrounding cellulitis- s/p bedside debridement/wound vac 02/02. MRI now +R calcaneous OM. s/p Heel bx 02/09. Bx negative. will d/c on cefazolin 2g with HD on and 3g on Tuesday. will need 4 weeks of treatment. wound vac in place to change every 2 days. will need HBO as outpatient. podiatry and ID on board 2. hypotension- asymptomatic. repeat BP now imrpoved. not on any antihypertensives. will monitor 3.Drug reaction- due to meropenem. now resolved. 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 RUE catheter related occlusive cephalic vein thrombosis- no further intervention necessary. vasc surgery on board 5. hypokalemia- improved 6. hypophosphatemia- resolved 7. ESRD on HD- cont HD per normal schedule. nephro on board 8. Hx of DM- A1c 4.3 here off medication. received insulin while in septic shock has not required coverage since. does not follow diabetic diet. 9. Depression- no suicidal/homicidal thoughts at this time. can see psychiatrist as outpatient 10. DVT ppx- Hep sq 11. d/c home with VNS
--- NOTE | 2018-02-13 13:51 | PN ---
Progress Note, Physician History of Present Illness: Pt seen and examined at bedside. He is awake and alert. He is eager to go home. - Current Medication List Current Medications: Active Medications Amino Acids (Prosource No Carb Liquid Pkt) 30 ml PO BID@0800,1730 [facility] Last Admin: 02/13/18 08:53 Dose: Not Given Collagenase (Santyl -) 1 applic TP DAILY [facility] Last Admin: 02/13/18 12:03 Dose: 1 applic Diphenhydramine HCl (Benadryl Injection -) 25 mg IVPUSH Q4H PRN PRN Reason: FOR ITCHING Emollient Ointment (Aquaphor -) 1 applic TP BID PRN PRN Reason: FOR ITCHING Heparin Sodium (Porcine) (Heparin -) 5,000 unit SQ TID [facility] Last Admin: 02/13/18 07:25 Dose: Not Given Ceftriaxone Sodium 2 gm/ (Dextrose) 100 mls @ 200 mls/hr IVPB DAILY [facility] Last Admin: 02/13/18 12:03 Dose: 200 mls/hr Zinc Oxide/Panthenol/Vitamin E (Balmex Cream -) 1 applic TP ASDIR PRN PRN Reason: HYGEINE Last Admin: 02/08/18 14:10 Dose: 1 applic - Objective Vital Signs: Vital Signs Temperature 98 F 02/13/18 11:30 Pulse Rate 90 02/13/18 11:30 Respiratory Rate 18 02/13/18 11:30 Blood Pressure 120/81 02/13/18 11:30 O2 Sat by Pulse Oximetry (%) 98 02/12/18 21:00 Constitutional: Yes: Calm Eyes: Yes: Conjunctiva Clear HENT: Yes: Atraumatic Neck: Yes: Supple Cardiovascular: Yes: S1, S2 Respiratory: Yes: CTA Bilaterally Gastrointestinal: Yes: Soft Musculoskeletal: Yes: WNL Edema: No Integumentary: Yes: Rash Neurological: Yes: Oriented Psychiatric: Yes: Oriented Labs: CBC, BMP 02/10/18 10:15 02/10/18 10:15 Problem List - Problems (1) ESRD (end stage renal disease) Code(s): N18.6 - END STAGE RENAL DISEASE (2) Diabetic foot ulcer Code(s): E11.621 - TYPE 2 DIABETES MELLITUS WITH FOOT ULCER; L97.509 - NON- PRESSURE CHRONIC ULCER OTH PRT UNSP FOOT W UNSP SEVERITY Qualifiers: Diabetic foot ulcer location: heel Diabetes mellitus type: other specified (including JADON) Laterality: right Non-pressure ulcer stage: unspecified non -pressure ulcer stage Qualified Code(s): E13.621 - Other specified diabetes mellitus with foot ulcer; L97.419 - Non-pressure chronic ulcer of right heel and midfoot with unspecified severity Assessment/Plan Current Medications Generic Name Dose Route Start Last Admin Trade Name Freq PRN Reason Stop Dose Admin Amino Acids 30 ml 02/10/18 17:30 02/13/18 08:53 Prosource No Carb Liquid Pkt PO Not Given BID@0800,1730 IRVIN Collagenase 1 applic 02/08/18 10:00 02/13/18 12:03 Santyl - TP 1 applic DAILY IRVIN Administration Diphenhydramine HCl 25 mg 02/08/18 07:37 Benadryl Injection - IVPUSH Q4H PRN FOR ITCHING Emollient Ointment 1 applic 02/08/18 09:15 Aquaphor - TP BID PRN FOR ITCHING Heparin Sodium (Porcine) 5,000 unit 02/08/18 14:00 02/13/18 07:25 Heparin - SQ Not Given TID IRVIN Ceftriaxone Sodium 2 gm/ 100 mls @ 200 mls/hr 02/09/18 16:30 02/13/18 12:03 Dextrose IVPB 200 mls/hr DAILY IRVIN Administration Zinc Oxide/Panthenol/Vitamin E 1 applic 02/08/18 11:29 02/08/18 14:10 Balmex Cream - TP 1 applic ASDIR PRN Administration HYGEINE Impression 1. ESRD 2. anemia 3. DFU 4. DM 5. sepsis 6. hypokalemia 7. hypotension 8. rash Plan - HD today - pt has spot as outpt - discussed plan with him - HD AVF 4:15 abf 450 heparin 6000 with 1000 q hour, 2 k bath, [place] [phone] - will follow Dr Frey
== END 2018-02-13 16:36 | disposition home health service (06) | DRG 628 ==
LOC: JER 16:32 → JERBED 18:57 → J4W 21:16 → JICU 02-01 16:13 → J2W 02-05 12:50 → J8W 02-07 20:41
PROVIDERS: ADMIT Hospitalist; ATTEND Internal Medicine
PROC: 05HM33Z Insertion of Infusion Device into Right Internal Jugular Vein, Percutaneous Approach (ICD-10-PCS; 2018-02-01)
PROC: 0HBNXZX Excision of Left Foot Skin, External Approach, Diagnostic (ICD-10-PCS; 2018-02-02)
PROC: 0QBL0ZX Excision of Right Tarsal, Open Approach, Diagnostic (ICD-10-PCS; principal; 2018-02-09)
PROC: 5A1D90Z Performance of Urinary Filtration, Continuous, Greater than 18 hours Per Day (ICD-10-PCS; 2018-02-13)
DX: E11.69 Type 2 diabetes mellitus with other specified complication (principal); L89.153 Pressure ulcer of sacral region, stage 3; A41.9 Sepsis, unspecified organism; R65.21 Severe sepsis with septic shock; L97.419 Non-pressure chronic ulcer of right heel and midfoot with unspecified severity; L97.429 Non-pressure chronic ulcer of left heel and midfoot with unspecified severity; M86.9 Osteomyelitis, unspecified; L03.115 Cellulitis of right lower limb; L03.116 Cellulitis of left lower limb; E11.621 Type 2 diabetes mellitus with foot ulcer; N18.6 End stage renal disease; I95.9 Hypotension, unspecified; E87.6 Hypokalemia; E83.39 Other disorders of phosphorus metabolism; F32.9 Major depressive disorder, single episode, unspecified
CPT/HCPCS: 36415; 71045-TC-FY; 73630-TC-RT-FY; 73718-LT; 73721-RT-TC; 80048; 80053; 82962; 83036; 83735; 84100; 85025; 85027; 86704; 86706; 86708; 87040; 87070; 87075; 87186; 87205; 87324; 87340; 87449; 87493; 88305-TC; 88311-TC; 93005; 93010; 93925-TC; 93971; 97161-GP; 99283-25; G0463-25; J0131; J1644; J7030

== ENCOUNTER 2018-05-12 18:02 | Inpatient (IN) | payer OTHER ==
--- NOTE | 2018-05-12 19:21 | PDOC ---
History of Present Illness - General History Source: Patient - History of Present Illness Initial Comments: 05/12/18 19:14 52 y/o M with PMH of ESRD on HD ( , , tue), oeteomyelitis, hep b on treatment came to hospital because of chronic diarrhoea. Patient states that he have diarrhoea from many months and when ever he eats or drink any thing he have bowel movement after 5 to 10 min, reports its watery, no blood. Also states that he has also lost weight but unable to tell how much. Denies Blood in stool, denies sick contact, denies eating from outside, denies eating poultry , denies diarrhoea at night. States if he eats once a day he have one bowel movement and if he eats more he have more bowel movements. Denies fever and chills, denies vomiting, denies abdominal distension. also states that he was diagnosed with osteomyelitis for which he was on antibiotics which he finished couple of weeks ago. he states that in [facility] he was tested for C.diff which came out to be a negative. Denies abdominal surgery and any h/o pancreatitis. Patient is bed ridden for last 5 years and was in rehab for 2 years when he developed ulcers on his feet. Last HD on tuesday. PMH: ESRD, osteo, DM, Hep B, follows dr huerta for foot ulcers. 05/12/18 19:42 05/12/18 19:48 05/12/18 19:50 <Vidal Navarrete - Last Filed: 05/12/18 21:55> <Deepika Garcia - Last Filed: 05/12/18 23:28> - General Chief Complaint: Diarrhea Stated Complaint: DIARRHEA Time Seen by Provider: 05/12/18 18:56 Past History - Past Medical History Anemia: No Asthma: No Cancer: No Cardiac Disorders: No CVA: No COPD: No CHF: No Dementia: No Diabetes: No Dialysis: Yes (ESRD) GI Disorders: No Disorders: No HTN: Yes Hypercholesterolemia: Yes Liver Disease: No Seizures: No Thyroid Disease: No - Immunization History Immunization Up to Date: Yes - Suicide/Smoking/Psychosocial Hx Smoking History: Never smoked Have you smoked in the past 12 months: No Hx Alcohol Use: No Drug/Substance Use Hx: No Substance Use Type: None Hx Substance Use Treatment: No <Vidal Navarrete - Last Filed: 05/12/18 21:55> <Deepika Garcia - Last Filed: 05/12/18 23:28> - Past Medical History Allergies/Adverse Reactions: Allergies Allergy/AdvReac Type Severity Reaction Status Date / Time levofloxacin [From Levaquin] Allergy Mild Rash Verified 03/03/18 10:46 meropenem Allergy Verified 03/03/18 10:46 vancomycin Allergy Verified 03/03/18 10:46 amino Allergy Intermediate Rash Uncoded 03/03/18 10:46 Home Medications: Ambulatory Orders Collagenase Clostridium Hist. [Santyl -] 1 applic TP DAILY tube 02/20/18 Tenofovir Disoproxil Fumarate 300 mg PO WEEKLY 03/24/18 Collagenase Clostridium Hist. [Santyl] 1 applic TP DAILY 05/12/18 Diphenhydramine HCl [Benadryl Capsule -] 25 mg PO Q8H PRN 05/12/18 Fludrocortisone Acetate [Florinef -] 0.1 mg PO DAILY 05/12/18 Loperamide HCl [Imodium A-D] 2 mg PO TID 05/12/18 Methylphenidate HCl 5 mg PO DAILY 05/12/18 Mineral Oil/Petrolat,Wht/Water [Eucerin] 1 applic TP BID 05/12/18 Multivitamins [Tab-A-Vit -] 1 tab PO DAILY 05/12/18 metroNIDAZOLE [Flagyl -] 500 mg PO TID 05/12/18 Review of Systems - Review of Systems Constitutional: Yes: Weakness, Unintentional Wgt. Loss. No: Chills, Fever, Loss of Appetite Respiratory: No: Shortness of Breath, Stridor, Wheezing Cardiac (ROS): No: Chest Pain, Edema, Lightheadedness, Palpitations, Syncope, Chest Tightness ABD/GI: Yes: Diarrhea, Nausea. No: Abdominal Distended, Blood Streaked Bowels, Constipated, Difficulty Swallowing, Vomiting Musculoskeletal: Yes: Muscle Weakness Neurological: No: Headache Endocrine: Yes: Unexplained Weight Loss <Vidal Navarrete - Last Filed: 05/12/18 21:55> *Physical Exam - Physical Exam General Appearance: Yes: Appropriately Dressed HEENT: positive: EOMI, Normal Voice, Symmetrical Neck: positive: Trachea midline, Supple Respiratory/Chest: positive: Lungs Clear, Normal Breath Sounds. negative: Respiratory Distress, Accessory Muscle Use, Crackles, Wheezing Cardiovascular: positive: Regular Rhythm, Regular Rate, S1, S2. negative: Murmur Gastrointestinal/Abdominal: positive: Normal Bowel Sounds, Flat, Soft. negative : Tender, Distended, Guarding, Rebound, Tenderness, Mass Musculoskeletal: negative: CVA Tenderness Extremity: positive: Normal Inspection, Other (dressing present on both feet, didnt alllow to unrap, follows dr huerta, AV fistula on left arm ) Integumentary: positive: Dry Neurologic: positive: Fully Oriented, Alert, Normal Mood/Affect, Normal Response <Vidal Navarrete - Last Filed: 05/12/18 21:55> - Vital Signs Last Vital Signs Temp Pulse Resp BP Pulse Ox 98.5 F 88 20 92/54 97 05/12/18 18:02 05/12/18 20:38 05/12/18 20:38 05/12/18 20:38 05/12/18 20:43 <Deepika Garcia - Last Filed: 05/12/18 23:28> ED Treatment Course - LABORATORY CBC & Chemistry Diagram: 05/12/18 20:15 05/12/18 20:15 - RADIOLOGY Radiology Studies Ordered: Category Date Time Status ABDOMEN & PELVIS CT W/O CONTR [CT] Stat CT Scan 05/12/18 19:10 Ordered <Vidal Navarrete - Last Filed: 05/12/18 21:55> - LABORATORY CBC & Chemistry Diagram: 05/12/18 20:15 05/12/18 20:15 - ADDITIONAL ORDERS Additional order review: Laboratory Results 05/12/18 20:15 Sodium 143 Potassium 3.0 L Chloride 108 H Carbon Dioxide 16 L Anion Gap 19 H BUN 48 H Creatinine 14.1 H* Creat Clearance w eGFR 3.73 Random Glucose 86 Calcium 8.5 Phosphorus 5.1 H Magnesium 2.8 H Total Bilirubin 0.4 AST 7 L ALT 7 L Alkaline Phosphatase 80 Total Protein 6.8 Albumin 3.1 L 05/12/18 20:15 RBC 3.63 L MCV 93.7 MCHC 33.1 RDW 14.9 D MPV 10.2 D Neutrophils % 65.4 Lymphocytes % 20.2 D Monocytes % 10.8 H Eosinophils % 2.2 Basophils % 1.4 - Medications Given in the ED: ED Medications Discontinued Medications Generic Name Dose Route Start Last Admin Trade Name Freq PRN Reason Stop Dose Admin Sodium Chloride 500 ml 05/12/18 20:03 05/12/18 20:39 Normal Saline - IV 05/12/18 20:04 500 ml ONCE ONE Administration <Deepika Garcia - Last Filed: 05/12/18 23:28> Medical Decision Making - Medical Decision Making 05/12/18 19:43 52 y/o M with PMH of ESRD on HD ( , , tue), oeteomyelitis, hep b on treatment came to hospital because of chronic diarrhoea. Patient states that he have diarrhoea from many months and when ever he eats or drink any thing he have bowel movement after 5 to 10 min, reports its watery, no blood. Also states that he has also lost weight but unable to tell how much. Denies Blood in stool, denies sick contact, denies eating from outside, denies eating poultry , denies diarrhoea at night. States if he eats once a day he have one bowel movement and if he eats more he have more bowel movements. Denies fever and chills, denies vomiting, denies abdominal distension. also states that he was diagnosed with osteomyelitis for which he was on antibiotics which he finished couple of weeks ago. he states that in [facility] he was tested for C.diff which came out to be a negative. Patient is bed ridden for last 5 years and was in rehab for 2 years when he developed ulcers on his feet. PMH: ESRD, osteo, DM, Hep B DD: malabsobtion syndrome, osmotic diarrhoea, c diff, parasite infection, less likely infective diarrhoea. we will get: stool studies, ct abdomen, cbc, cmp GI consult and nephrology consult. 05/12/18 19:53 Labs reviewed. ekg: nsr We will admit patient for diarrhoea. symphony paged 05/12/18 21:55 discussed with Hospitalist Megan, we will admit patient. <Vidal Navarrete - Last Filed: 05/12/18 21:55> *DC/Admit/Observation/Transfer - Discharge Dispostion Decision to Admit order: Yes <Vidal Navarrete - Last Filed: 05/12/18 21:55> <Deepika Garcia - Last Filed: 05/12/18 23:28> Diagnosis at time of Disposition: Acute diarrhea - Discharge Dispostion Condition at time of disposition: Guarded
[2018-05-12] MEDS ORDERED: SODIUM CHLORIDE 0.9% 500 ML INFUS.BAG IV ONE (20:03)
[2018-05-12 20:25] LABS: BASO % 1.4 % (0-2.0); EOS % 2.2 % (0-4.5); HEMOGLOBIN 11.3 GM/dL (11.7-16.9); LYMPH % 20.2 % (8-40); MCHC 33.1 g/dl (32.0-35.9); MEAN CELL VOLUME 93.7 fl (80-96); MEAN PLT VOLUME 10.2 fl (7.5-11.1); MONO % 10.8 % (3.8-10.2); NEUT % 65.4 % (42.8-82.8); PLATELET COUNT 140 K/MM3 (134-434); RBC 3.63 M/mm3 (4.00-5.60); RDW 14.9 % (11.9-15.9); WHITE BLOOD COUNT 9.2 K/mm3 (4.0-10.0)
--- NOTE | 2018-05-12 20:27 | PDOC ---
Attending Attestation - HPI HPI: 05/12/18 21:35 The patient is a 52 year old male, with a significant past medical history of ESRD on HD (T, Shabnam, Sat), osteomyelitis, Hepatitis B, who presents to the emergency department from [facility] with, diarrhea. As per patient, his symptoms have been ongoing for months. He reports after any PO intake he automatically has a watery, non bloody bowel movement approximately 5-10 minutes. He also endorses an unknown amount of weight loss. The patient finished a course of antibiotics for osteomyelitis a few weeks ago. He was recently had a negative C.difficile culture done at [facility]. He denies any recent fevers, chills, headache or dizziness. He denies any recent nausea, vomit, or constipation. He denies any recent chest pain or shortness of breath. He denies any recent dysuria, frequency, urgency or hematuria. - Physicial Exam PE: 05/13/18 00:08 Agree with resident exam. <Delicia Bunch - Last Filed: 05/13/18 00:08> - Resident Resident Name: Vidal Navarrete - ED Attending Attestation I have performed the following: I have examined & evaluated the patient, The case was reviewed & discussed with the resident, I agree w/resident's findings & plan - HPI HPI: 05/12/18 20:25 Pt comes with diarrhea. - Medical Decision Making 05/12/18 20:26 Pt will have basic labs. He will be admitted for weight loss and inability to keep food down without diarrhea episodes. 05/13/18 05:28 Pt hydrated in the ER. Stable for admission. <Deepika Garcia - Last Filed: 05/13/18 05:28> Attestations - Attestations 05/12/18 21:36 Documentation prepared by Delicia Bunch, acting as medical surgical tech for Deepika Garcia MD. <Delicia Bunch - Last Filed: 05/13/18 00:08>
[2018-05-12 20:48] LABS: ALBUMIN 3.1 g/dl (3.4-5.0); ANION GAP 19 MMOL/L (8-16); BILIRUBIN,TOTAL 0.4 mg/dL (0.2-1.0); BLOOD UREA NITROGEN 48 mg/dL (7-18); CALCIUM 8.5 mg/dL (8.5-10.1); CHLORIDE 108 mmol/L (98-107); CO2 16 mmol/L (21-32); GLUCOSE,RANDOM 86 mg/dL (74-106); MAGNESIUM 2.8 mg/dL (1.8-2.4); PHOSPHOROUS 5.1 mg/dL (2.5-4.9); SGOT/AST 7 U/L (15-37); SGPT/ALT 7 U/L (13-61); SODIUM 143 mmol/L (136-145); TOT PROT 6.8 g/dl (6.4-8.2)
[2018-05-12 20:49] LABS: ALK PHOS 80 U/L (45-117)
[2018-05-12 21:13] LABS: CREATININE 14.1 mg/dL (0.55-1.3)
--- NOTE | 2018-05-12 21:56 | HP ---
CHIEF COMPLAINT: Diarrhea PCP: [facility] HISTORY OF PRESENT ILLNESS: This is a 52 year old male with a past medical history of ESRD on dialysis T,, Sa, osteomyelitis R foot, hepatitis B, DM (resolved with onset of ESRD), B/L foot ulcers presented to the ED with chronic LBM after meals for months. He also reports weight loss but this was unable to be verified with NH. pt was recently started on flagyl for loose BM, unknown if pt tested positive for C diff at the [facility]. ER course was notable for: (1) WBC 9.2 (2) K 3.0 (3) Cr 14.1--missed dialysis (4) CT abd/pel without acute abdominal pathology Recent Travel: pt denies PAST MEDICAL HISTORY: ESRD on dialysis T,,Sa, osteomyelitis R foot, hepatitis B, DM (resolved with onset of ESRD), B/L foot ulcers PAST SURGICAL HISTORY: left AV shunt Social History: Smoking: pt denies Alcohol: occ Drugs: pt denies Family History: mother and father unknown history 2 brothers, 1 sister all alive and well Allergies levofloxacin [From Levaquin] Allergy (Mild, Verified 03/03/18 10:46) Rash meropenem Allergy (Verified 03/03/18 10:46) vancomycin Allergy (Verified 03/03/18 10:46) amino Allergy (Intermediate, Uncoded 03/03/18 10:46) Rash HOME MEDICATIONS: 3 Medication Instructions Recorded Collagenase Clostridium Hist. 1 applic TP DAILY tube 02/20/18 [Santyl -] Diphenhydramine HCl [Benadryl 25 mg PO Q8H #21 capsule 02/24/18 Capsule -] Tenofovir Disoproxil Fumarate 300 mg PO WEEKLY 03/24/18 Collagenase Clostridium Hist. 1 applic TP DAILY 05/12/18 [Santyl] Fludrocortisone Acetate [Florinef 0.1 mg PO DAILY 05/12/18 -] Loperamide HCl [Imodium A-D] 2 mg PO TID 05/12/18 Methylphenidate HCl 5 mg PO DAILY 05/12/18 Multivitamins [Tab-A-Vit -] 1 tab PO DAILY 05/12/18 metroNIDAZOLE [Flagyl -] 500 mg PO TID 05/12/18 REVIEW OF SYSTEMS CONSTITUTIONAL: Absent: fever, chills, diaphoresis, generalized weakness, malaise, loss of appetite, weight change HEENT: Absent: rhinorrhea, nasal congestion, throat pain, throat swelling, difficulty swallowing, mouth swelling, ear pain, eye pain, visual changes CARDIOVASCULAR: Absent: chest pain, syncope, palpitations, irregular heart rate, lightheadedness , peripheral edema RESPIRATORY: Absent: cough, shortness of breath, dyspnea with exertion, orthopnea, wheezing, stridor, hemoptysis GASTROINTESTINAL: present: diarrhea Absent: abdominal pain, abdominal distension, nausea, vomiting, constipation, melena, hematochezia GENITOURINARY: Absent: dysuria, frequency, urgency, hesitancy, hematuria, flank pain, genital pain MUSCULOSKELETAL: Absent: myalgia, arthralgia, joint swelling, back pain, neck pain SKIN: Absent: rash, itching, pallor HEMATOLOGIC/IMMUNOLOGIC: Absent: easy bleeding, easy bruising, lymphadenopathy, frequent infections ENDOCRINE: Absent: unexplained weight gain, unexplained weight loss, heat intolerance, cold intolerance NEUROLOGIC: Absent: headache, focal weakness or paresthesias, dizziness, unsteady gait, seizure, mental status changes, bladder or bowel incontinence PSYCHIATRIC: Absent: anxiety, depression, suicidal or homicidal ideation, hallucinations. PHYSICAL EXAMINATION Vital Signs - 24 hr 3 05/12/18 05/12/18 05/12/18 18:02 20:00 20:38 Temperature 98.5 F Pulse Rate 97 H Pulse Rate [ 89 88 Radial] Respiratory 19 20 20 Rate Blood Pressure 85/46 Blood Pressure 105/68 92/54 [Right Arm] O2 Sat by Pulse 100 98 97 Oximetry (%) GENERAL: Awake, alert, and fully oriented, in no acute distress. HEAD: Normal with no signs of trauma. EYES: Pupils equal, round and reactive to light, extraocular movements intact, sclera anicteric, conjunctiva clear. No lid lag. EARS, NOSE, THROAT: Ears normal, nares patent, oropharynx clear without exudates. Moist mucous membranes. NECK: Normal range of motion, supple without lymphadenopathy, JVD, or masses. LUNGS: Breath sounds equal, clear to auscultation bilaterally. No wheezes, and no crackles. No accessory muscle use. HEART: Regular rate and rhythm, normal S1 and S2 without murmur, rub or gallop. ABDOMEN: Soft, nontender, not distended, normoactive bowel sounds, no guarding, no rebound, no masses. No hepatomegaly or splenomegaly. MUSCULOSKELETAL: Normal range of motion at all joints. No bony deformities or tenderness. No CVA tenderness. UPPER EXTREMITIES: 2+ pulses, warm, well-perfused. No cyanosis. No clubbing. No peripheral edema. LOWER EXTREMITIES: 2+ pulses, warm, well-perfused. No calf tenderness. No peripheral edema. NEUROLOGICAL: Cranial nerves II-XII intact. Normal speech. PSYCHIATRIC: Cooperative. Good eye contact. Appropriate mood and affect. SKIN: Warm, dry, normal turgor, no rashes or lesions noted, normal capillary refill. wounds to bilat heels with dressings in place, CDI, pt declined removal of dressing. Sacral wound, pt declined exam. Laboratory Results - last 24 hr 3 05/12/18 05/12/18 20:15 20:15 WBC 9.2 RBC 3.63 L Hgb 11.3 L Hct 34.0 L MCV 93.7 MCH 31.0 MCHC 33.1 RDW 14.9 D Plt Count 140 MPV 10.2 D Absolute Neuts (auto) 6.0 Neutrophils % 65.4 Lymphocytes % 20.2 D Monocytes % 10.8 H Eosinophils % 2.2 Basophils % 1.4 Nucleated RBC % 0 Sodium 143 Potassium 3.0 L Chloride 108 H Carbon Dioxide 16 L Anion Gap 19 H BUN 48 H Creatinine 14.1 H* Creat Clearance w eGFR 3.73 Random Glucose 86 Calcium 8.5 Phosphorus 5.1 H Magnesium 2.8 H Total Bilirubin 0.4 AST 7 L ALT 7 L Alkaline Phosphatase 80 Total Protein 6.8 Albumin 3.1 L ECG Normal sinus rhythm vent rate 95, QTC [address]/T wave changes Radiology Reports CT abd/pel THIS IS A PRELIMINARY REPORT FROM [facility] FINDINGS: There is a small groundglass opacity in the medial right middle lobe which is nonspecific, possibly a developing infiltrate The visualized lung bases are otherwise clear Trace pericardial effusion Multiple gallstones without gallbladder wall thickening or pericholecystic edema to suggest acute cholecystitis The spleen is mildly enlarged measuring 14 cm in greatest transverse dimension The liver, pancreas and adrenal glands are grossly normal within the limitations of a noncontrast CT Small nonobstructing stone in the lower pole of the left kidney. The kidneys are otherwise unremarkable There is no bowel distention Normal appendix The bladder wall appears mildly thickened. Correlate clinically to exclude cystitis No intra-abdominal free air or free fluid There is the appearance of possible small decubitus ulcer in the lower sacral region Synovial thickening about both hips with mild bilateral joint space narrowing Individualized dose optimization techniques were used for this CT. THIS DOCUMENT HAS BEEN ELECTRONICALLY SIGNED John Rush MD 05/12/2018 21:33 EST ASSESSMENT/PLAN: 52yM with PMH ESRD on dialysis T,Th,Sa, osteomyelitis R foot, hepatitis B, DM ( resolved with onset of ESRD), B/L foot ulcers presented to the ED with chronic LBM after meals for months. Diarrhea - stool ordered for Cdiff, culture, O&P, pending - cont imodium with meals - GI consult - pt also reports weight loss, requested NH send over recent weights but they did not have. Will need to contact dialysis B/L foot wounds - pt evaluated by Dr. Villalobos today in wound center, refused dressing to be removed - cont santyl daily sacral wound - pt declined exam of wound at this time - cont santyl daily ESRD - renal consult for dialysis hypokalemia - will replete with 40mg po - repeat in am hepatitis B - cont tenofovir weekly DVT PPX - heparin 5000u TID FEN - tolerating po, given 500cc bolus in ed, hold further IVF as pt is ESRD on HD - BMP in am - renal diet as tolerated Dispo: pt currently requires further observation for management of his emergent condition. Visit type - Emergency Visit Emergency Visit: Yes ED Registration Date: 05/12/18 Care time: The patient presented to the Emergency Department on the above date and was hospitalized for further evaluation of their emergent condition. - New Patient This patient is new to me today: Yes Date on this admission: 05/12/18 - Critical Care Critical Care patient: No Hospitalist Screening - Colonoscopy Questionnaire Colonoscopy Questionnaire: Colonoscopy Questionnaire - Patient: 50 - 75 years old and never had a screening colonoscopy: No History of colon or rectal polyps, or CA: No History of IBD, Crohn's disease or UC: No History of abdominal radiation therapy as a child: No - Relative: 1 with colon or rectal CA, or polyps at age 60 or younger: No Colon or rectal CA diagnosed at age 45 or younger: No Multiple relatives with colon or rectal CA: No - Outcome: Screening Result: Negative Screen
[2018-05-12] MEDS ORDERED: diphenhydrAMINE HCL 25 MG CAPSULE (FP) PO PRN (23:22)
[2018-05-12] MEDS ORDERED: POTASSIUM CHLORIDE TABS 20 MEQ TABLET.ER (FP) PO ONE (23:30)
[2018-05-13] MEDS: metroNIDAZOLE 250 MG TABLET PO SCH ×3 (06:22→21:19)
[2018-05-13] MEDS ORDERED: LOPERAMIDE HCL 2 MG CAPSULE PO SCH (08:00)
[2018-05-13] MEDS ORDERED: PT OWN MED DRAWER 7, Y5N ONE ×3 (10:26→20:26)
[2018-05-13] MEDS: MINERAL OIL/PETROLAT/WATER TOPICAL CREAM 113 GM JAR TP SCH ×2 (10:28→21:19)
[2018-05-13] MEDS: FLUDROCORTISONE ACETATE 0.1 MG TABLET (FP) PO SCH (10:28)
[2018-05-13] MEDS: COLLAGENASE CLOSTRIDIUM HIST. 30 GRAMS TUBE TP SCH ×2 (10:29)
[2018-05-13] MEDS: MULTIVITAMINS (DAILY MVI) TABLET (FP) PO SCH (10:29)
--- NOTE | 2018-05-13 11:22 | PN ---
Progress Note (short form) - Note Progress Note: pt seen/ examined chart reviewed. comfortable +ve diarrhea denies pain Vital Signs Temp 98.4 F 05/13/18 06:53 Pulse 92 H 05/13/18 06:53 Resp 20 05/13/18 06:53 BP 106/54 05/13/18 06:53 Pulse Ox 97 05/12/18 20:43 Intake & Output 05/12/18 05/12/18 05/13/18 11:59 23:59 11:59 Intake Total 450 Balance 450 Weight 250 lb 192 lb Intake: Oral 450 Other: Voiding Method Incontinent Bowel Movement Yes Height 6 ft 2 in 6 ft 2 in Body Mass Index (BMI) 32.1 24.6 Weight Measurement Method Built [facility] Weight Measurement Method Est/Stated by Patient Active Medications Collagenase (Santyl -) 1 applic TP DAILY [facility]; Protocol Last Admin: 05/13/18 10:29 Dose: 1 applic Collagenase (Santyl -) 1 applic TP DAILY [facility]; Protocol Last Admin: 05/13/18 10:29 Dose: 1 applic Diphenhydramine HCl (Benadryl -) 25 mg PO Q8H PRN PRN Reason: itching Fludrocortisone Acetate (Florinef -) 0.1 mg PO DAILY [facility] Last Admin: 05/13/18 10:28 Dose: 0.1 mg Methylphenidate HCl (Ritalin -) 5 mg PO DAILY [facility] Metronidazole (Flagyl -) 500 mg PO TID [facility] Last Admin: 05/13/18 06:22 Dose: 500 mg Multi-Ingredient Lotion (Eucerin (Small Jar) -) 1 applic TP BID [facility] Last Admin: 05/13/18 10:28 Dose: 1 applic Multivitamins/Minerals/Vitamin C (Tab-A-Vit -) 1 tab PO DAILY [facility] Last Admin: 05/13/18 10:29 Dose: 1 tab Tenofovir Disoproxil Fumarate (Viread -) 300 mg PO Bertrand@1000 [facility] CBC, BMP 05/12/18 20:15 05/12/18 20:15 Microbiology 05/13/18 05:00 Clostridium difficile Antigen (GEM) - Final Stool Clostridium difficile Toxin Assay - Final ct scan reviewed. Physical Exam Constitutional: awake/ comfortable Eyes: Yes: Conjunctiva Clear HENT: Yes:wnl Neck: Yes: Supple/ no jvd Cardiovascular: No:rrr Respiratory: Yes: Clear Abd- Soft/ non tender Neurological: Yes: Alert, Oriented. Heel pads+ sacral decbitis - refuses exam a/p In summary The patient is a 52 year old male, with a significant past medical history of ESRD on HD (T, Thurs, Sat), osteomyelitis, Hepatitis B, who presents to the emergency department from [facility] with, diarrhea. As per patient, his symptoms have been ongoing for months. He reports after any PO intake he automatically has a watery, non bloody bowel movement approximately 5-10 minutes. He also endorses an unknown amount of weight loss. The patient finished a course of antibiotics for osteomyelitis a few weeks ago. He was recently had a negative C.difficile culture done at [facility] present care. gi/ i/d eval continue other meds abx dialysis per renal will follow Problem List - Problems (1) Sacral decubitus ulcer Code(s): L89.159 - PRESSURE ULCER OF SACRAL REGION, UNSPECIFIED STAGE (2) Chronic diarrhea Code(s): K52.9 - NONINFECTIVE GASTROENTERITIS AND COLITIS, UNSPECIFIED (3) Bilateral pressure ulcer of feet Code(s): L89.899 - PRESSURE ULCER OF OTHER SITE, UNSPECIFIED STAGE (4) ESRD (end stage renal disease) Code(s): N18.6 - END STAGE RENAL DISEASE
[2018-05-13] MEDS: METHYLPHENIDATE HCL 5 MG TABLET PO SCH (14:33)
[2018-05-13] MEDS ORDERED: VANCOMYCIN 250 MG/5 ML ORAL SOLUTION PO SCH (14:58)
--- NOTE | 2018-05-13 16:08 | CON.GI ---
Consult Consult Specialty:: GI Reason for Consultation:: Chronic diarrhea - History of Present Illness History of Present Illness: Chart reviewed. Events noted. Per initial intake 05/13/18: The patient is a 52 year old male, with a significant past medical history of ESRD on HD (, , Tue), osteomyelitis, Hepatitis B, who presents to the emergency department from [facility] with, diarrhea. As per patient, his symptoms have been ongoing for months. He reports after any PO intake he automatically has a watery , non bloody bowel movement approximately 5-10 minutes. He also endorses an unknown amount of weight loss. The patient finished a course of antibiotics for osteomyelitis a few weeks ago. He was recently had a negative C.difficile culture done at [facility]. ER course was notable for: (1) WBC 9.2 (2) K 3.0 (3) Cr 14.1--missed dialysis (4) CT abd/pel w/o without acute abdominal pathology Home meds include Viread and flagyl po. Pt reports onset of postprandial, watery diarrhea of variable volume after he was treated for foot infection with vanco and meropenem 1 months ago. Reports no GI issues, or altered bowels prior to 1 month ago. Reports no melena, hematochezia, hematemesis, jaundice, hx of pancreatitis, celiac, food allergies , PUD, choric acid reflux, or colitis. Had EGD and colonscopy 3-4 y ago. 3 colon polyps were found and removed. 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 No: Winchester's Disease, Preston's Disease, Diabetes Insipidus, Hyperparathyroidism, Hyperthyroidism, Hypothyroidism, Osteopenia, SIADH, Other - Past Surgical History Past Surgical History: Yes: AV Fistula/Graft - Alcohol/Substance Use Hx Alcohol Use: No - Smoking History Smoking history: Never smoked Have you smoked in the past 12 months: No - Social History Usual Living Arrangement: With Significant Other Home Medications - Allergies Allergies/Adverse Reactions: Allergies Allergy/AdvReac Type Severity Reaction Status Date / Time levofloxacin [From Levaquin] Allergy Mild Rash Verified 05/13/18 00:18 meropenem Allergy Verified 05/13/18 00:18 vancomycin Allergy Verified 05/13/18 00:18 amino Allergy Intermediate Rash Uncoded 03/03/18 10:46 - Home Medications Home Medications: Ambulatory Orders Collagenase Clostridium Hist. [Santyl -] 1 applic TP DAILY tube 02/20/18 Tenofovir Disoproxil Fumarate 300 mg PO WEEKLY 03/24/18 Collagenase Clostridium Hist. [Santyl] 1 applic TP DAILY 05/12/18 Diphenhydramine HCl [Benadryl Capsule -] 25 mg PO Q8H PRN 05/12/18 Fludrocortisone Acetate [Florinef -] 0.1 mg PO DAILY 05/12/18 Loperamide HCl [Imodium A-D] 2 mg PO TID 05/12/18 Methylphenidate HCl 5 mg PO DAILY 05/12/18 Mineral Oil/Petrolat,Wht/Water [Eucerin] 1 applic TP BID 05/12/18 Multivitamins [Tab-A-Vit -] 1 tab PO DAILY 05/12/18 metroNIDAZOLE [Flagyl -] 500 mg PO TID 05/12/18 Family Disease History - Family Disease History Family History: Unremarkable Review of Systems Findings/Remarks: as per HPI, ED, H&P Physical Exam-GI Vital Signs: Vital Signs Temperature 98.1 F 05/13/18 15:30 Pulse Rate 90 05/13/18 15:30 Respiratory Rate 18 05/13/18 15:30 Blood Pressure 107/70 05/13/18 15:30 O2 Sat by Pulse Oximetry (%) 98 05/13/18 09:00 Constitutional: Yes: Well Nourished, No Distress, Calm, Ashen, Pallor Eyes: Yes: Conjunctiva Clear HENT: Yes: Atraumatic Neck: Yes: Supple Cardiovascular: No: Bradycardia, Tachycardia Respiratory: Yes: Regular Gastrointestinal Inspection: No: Ascites, Distention ...Auscultate: Yes: Normoactive Bowel Sounds ...Palpate: Yes: Soft. No: Firm/Rigid, Guarding, Mass, Tenderness, Tenderness, Epigastium Neurological: Yes: Alert, Oriented Labs: CBC, BMP 05/12/18 20:15 05/12/18 20:15 Laboratory Last Values WBC 9.2 K/mm3 (4.0-10.0) 05/12/18 20:15 RBC 3.63 M/mm3 (4.00-5.60) L 05/12/18 20:15 Hgb 11.3 GM/dL (11.7-16.9) L 05/12/18 20:15 Hct 34.0 % (35.4-49) L 05/12/18 20:15 MCV 93.7 fl (80-96) 05/12/18 20:15 MCH 31.0 pg (25.7-33.7) 05/12/18 20:15 MCHC 33.1 g/dl (32.0-35.9) 05/12/18 20:15 RDW 14.9 % (11.9-15.9) D 05/12/18 20:15 Plt Count 140 K/MM3 (134-434) 05/12/18 20:15 MPV 10.2 fl (7.5-11.1) D 05/12/18 20:15 Absolute Neuts (auto) 6.0 K/mm3 (1.5-8.0) 05/12/18 20:15 Neutrophils % 65.4 % (42.8-82.8) 05/12/18 20:15 Lymphocytes % 20.2 % (8-40) D 05/12/18 20:15 Monocytes % 10.8 % (3.8-10.2) H 05/12/18 20:15 Eosinophils % 2.2 % (0-4.5) 05/12/18 20:15 Basophils % 1.4 % (0-2.0) 05/12/18 20:15 Nucleated RBC % 0 % (0-0) 05/12/18 20:15 Sodium 143 mmol/L (136-145) 05/12/18 20:15 Potassium 3.0 mmol/L (3.5-5.1) L 05/12/18 20:15 Chloride 108 mmol/L (98-107) H 05/12/18 20:15 Carbon Dioxide 16 mmol/L (21-32) L 05/12/18 20:15 Anion Gap 19 MMOL/L (8-16) H 05/12/18 20:15 BUN 48 mg/dL (7-18) H 05/12/18 20:15 Creatinine 14.1 mg/dL (0.55-1.3) H* 05/12/18 20:15 Creat Clearance w eGFR 3.73 (>60) 05/12/18 20:15 Random Glucose 86 mg/dL (74-106) 05/12/18 20:15 Calcium 8.5 mg/dL (8.5-10.1) 05/12/18 20:15 Phosphorus 5.1 mg/dL (2.5-4.9) H 05/12/18 20:15 Magnesium 2.8 mg/dL (1.8-2.4) H 05/12/18 20:15 Total Bilirubin 0.4 mg/dL (0.2-1.0) 05/12/18 20:15 AST 7 U/L (15-37) L 05/12/18 20:15 ALT 7 U/L (13-61) L 05/12/18 20:15 Alkaline Phosphatase 80 U/L (45-117) 05/12/18 20:15 Total Protein 6.8 g/dl (6.4-8.2) 05/12/18 20:15 Albumin 3.1 g/dl (3.4-5.0) L 05/12/18 20:15 Stool Occult Blood Negative (NEGATIVE) 05/13/18 10:15 Imaging - Results Cat Scan: Report Reviewed Problem List - Problems (1) Chronic diarrhea Code(s): K52.9 - NONINFECTIVE GASTROENTERITIS AND COLITIS, UNSPECIFIED Assessment/Plan A 52M NHR with chronic, watery postprandial diarrhea w/o signs of toxicity, or dehydration. On hemodialysis TIW with deranged electrolytes. SUspect post infectious IBS, vs antibiotic associated diarrhea. R/o infectious etiologies. ? osmotic vs pronounced gastrocolic reflex, Recommend stool for c. diff TOXIN, o&p, culture, crypto/isospora. Fasting serum gastrin, celiac panel, qualitative stool fat, stool electrolytes, stool lactoferrin. Cholestyramine can be used to control the symptoms for now.
--- NOTE | 2018-05-13 17:46 | CONSULT ---
Consult Consult Specialty:: Nephrology Reason for Consultation:: ESRD - History of Present Illness Chief Complaint: diarrhea History of Present Illness: Pt is a 52 year old male with pmhx of ESRD and hep B who presents to the ER with diarrhea. He says that he has had diarrhea for a month but it has gotten worse. He complains of diarrhea shortly after eating. He was recently treated with abx for osteo. I was called to evaluate him as he is on HD. He says he last went to dialysis on Tuesday. He is refusing to get HD now. He denies shortness of breath or palpitations. I explained risk of morbidity and mortality however he is still refusing. He denies fevers or chills. 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 Hepatobiliary: Yes: Hepatitis B Renal/: Yes: Renal Inusuff, Hemodialysis Infectious Disease: Yes: Other Psych: Yes: Depression - Past Surgical History Past Surgical History: Yes: AV Fistula/Graft - Alcohol/Substance Use Hx Alcohol Use: No - Smoking History Smoking history: Never smoked Have you smoked in the past 12 months: No - Social History Usual Living Arrangement: With Significant Other Home Medications - Allergies Allergies/Adverse Reactions: Allergies Allergy/AdvReac Type Severity Reaction Status Date / Time levofloxacin [From Levaquin] Allergy Mild Rash Verified 05/13/18 00:18 meropenem Allergy Verified 05/13/18 00:18 vancomycin Allergy Verified 05/13/18 00:18 amino Allergy Intermediate Rash Uncoded 03/03/18 10:46 - Home Medications Home Medications: Ambulatory Orders Collagenase Clostridium Hist. [Santyl -] 1 applic TP DAILY tube 02/20/18 Tenofovir Disoproxil Fumarate 300 mg PO WEEKLY 03/24/18 Collagenase Clostridium Hist. [Santyl] 1 applic TP DAILY 05/12/18 Diphenhydramine HCl [Benadryl Capsule -] 25 mg PO Q8H PRN 05/12/18 Fludrocortisone Acetate [Florinef -] 0.1 mg PO DAILY 05/12/18 Loperamide HCl [Imodium A-D] 2 mg PO TID 05/12/18 Methylphenidate HCl 5 mg PO DAILY 05/12/18 Mineral Oil/Petrolat,Wht/Water [Eucerin] 1 applic TP BID 05/12/18 Multivitamins [Tab-A-Vit -] 1 tab PO DAILY 05/12/18 metroNIDAZOLE [Flagyl -] 500 mg PO TID 05/12/18 Family Disease History - Family Disease History Family History: Denies Review of Systems - Review of Systems Constitutional: reports: Malaise. denies: Chills, Fever Eyes: reports: No Symptoms HENT: reports: No Symptoms Neck: reports: No Symptoms Cardiovascular: reports: No Symptoms Respiratory: reports: No Symptoms Gastrointestinal: reports: Diarrhea Genitourinary: reports: No Symptoms Musculoskeletal: reports: Muscle Weakness Neurological: reports: No Symptoms Endocrine: reports: No Symptoms Hematology/Lymphatic: reports: No Symptoms Psychiatric: reports: No Symptoms Physical Exam Vital Signs: Vital Signs Temperature 98.1 F 05/13/18 15:30 Pulse Rate 90 05/13/18 15:30 Respiratory Rate 18 05/13/18 15:30 Blood Pressure 107/70 05/13/18 15:30 O2 Sat by Pulse Oximetry (%) 98 05/13/18 09:00 Constitutional: Yes: Calm Eyes: Yes: Conjunctiva Clear HENT: Yes: Atraumatic Neck: Yes: Supple Cardiovascular: Yes: S1, S2 Respiratory: Yes: CTA Bilaterally Gastrointestinal: Yes: Soft, Other (diarrhea) Renal/: Yes: WNL Musculoskeletal: Yes: Muscle Weakness Edema: LLE: Trace, RLE: Trace Neurological: Yes: Oriented Psychiatric: Yes: Oriented Labs: CBC, BMP 05/12/18 20:15 05/12/18 20:15 Laboratory Tests 05/12/18 05/13/18 20:15 10:15 WBC 9.2 Hgb 11.3 L O & P Permanent Slide Pending Imaging - Results Cat Scan: Report Reviewed Assessment/Plan Current Medications Generic Name Dose Route Start Last Admin Trade Name Freq PRN Reason Stop Dose Admin Collagenase 1 applic 05/13/18 10:00 05/13/18 10:29 Santyl - TP 1 applic DAILY IRVIN Administration Protocol Collagenase 1 applic 05/13/18 10:00 05/13/18 10:29 Santyl - TP 1 applic DAILY IRVIN Administration Protocol Diphenhydramine HCl 25 mg 05/12/18 23:22 Benadryl - PO Q8H PRN itching Fludrocortisone Acetate 0.1 mg 05/13/18 10:00 05/13/18 10:28 Florinef - PO 0.1 mg DAILY IRVIN Administration Methylphenidate HCl 5 mg 05/13/18 10:00 05/13/18 14:33 Ritalin - PO 5 mg DAILY IRVIN Administration Metronidazole 500 mg 05/13/18 22:00 Flagyl - PO TID IRVIN Multi-Ingredient Lotion 1 applic 05/13/18 10:00 05/13/18 10:28 Eucerin (Small Jar) - TP 1 applic BID IRVIN Administration Multivitamins/Minerals/Vitamin C 1 tab 05/13/18 10:00 05/13/18 10:29 Tab-A-Vit - PO 1 tab DAILY IRVIN Administration Tenofovir Disoproxil Fumarate 300 mg 05/14/18 10:00 Viread - PO Bertrand@1000 IRVIN Impression 1. ESRD 2. anemia 3. osteomyelitis 4. Hep B 5. diarrhea 6. depression 7. non-compliance with HD 8. acidisos - metabolic Plan - pt refusing dialysis today - discussed risk of morbidity and mortality at length - GI input appreciated - diarrhea workup per primary team - will monitor lytes and volume status - will follow Dr Frey
[2018-05-13] MEDS: CHOLESTYRAMINE/SUCROSE 4 GM PACKET PO SCH (21:19)
[2018-05-14] MEDS: metroNIDAZOLE 250 MG TABLET PO SCH ×3 (06:51→21:01)
[2018-05-14] MEDS ORDERED: PT OWN MED DRAWER 7, Y5N ONE ×2 (09:33→20:43)
[2018-05-14] MEDS: MULTIVITAMINS (DAILY MVI) TABLET (FP) PO SCH (09:35)
[2018-05-14] MEDS: METHYLPHENIDATE HCL 5 MG TABLET PO SCH (09:36)
[2018-05-14] MEDS: FLUDROCORTISONE ACETATE 0.1 MG TABLET (FP) PO SCH (09:36)
[2018-05-14] MEDS: TENOFOVIR DISOPROXIL FUMARATE 300 MG TABLET PO SCH (09:36)
[2018-05-14] MEDS: CHOLESTYRAMINE/SUCROSE 4 GM PACKET PO SCH ×2 (09:37→21:01)
--- NOTE | 2018-05-14 10:50 | CON.ID ---
Consult - History of Present Illness History of Present Illness: 52 y.o. male with PMH of DM, ESRD on HD, Hepatitis B on Tenofovir, chronic foot ulcers who completed course of antibiotics for infected Rt ulcer/OM (completed one month ago) presents with c/o watery diarrhea for the past couple of months. He states that he has loose non-bloody BMs after every meal or after drinking fluids and has occasional abdominal cramping. He reports significant weight loss in this time period as well but denies fever/chills/vomiting. He denies previous history of C. difficile colitis. He currently resides in the [place] and states he was given a 7-day course of Flagyl for C. difficile treatment. He is allergic to Vancomycin as well as Meropenem and Levaquin. Currently he is alert , afebrile, without distress. Reports 1 loose BM today so far after breakfast. Pt does not want his LE ulcers to be examined at this time. States that he has been following up at the wound care clinic every Tuesday. He has no other complaints. 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 No: Abel's Disease, Norlina's Disease, Diabetes Insipidus, Hyperparathyroidism, Hyperthyroidism, Hypothyroidism, Osteopenia, SIADH, Other - Past Surgical History Past Surgical History: Yes: AV Fistula/Graft - Alcohol/Substance Use Hx Alcohol Use: No - Smoking History Smoking history: Never smoked Have you smoked in the past 12 months: No - Social History Usual Living Arrangement: With Significant Other Home Medications - Allergies Allergies/Adverse Reactions: Allergies Allergy/AdvReac Type Severity Reaction Status Date / Time levofloxacin [From Levaquin] Allergy Mild Rash Verified 05/13/18 00:18 meropenem Allergy Verified 05/13/18 00:18 vancomycin Allergy Verified 05/13/18 00:18 amino Allergy Intermediate Rash Uncoded 03/03/18 10:46 - Home Medications Home Medications: Ambulatory Orders Collagenase Clostridium Hist. [Santyl -] 1 applic TP DAILY tube 02/20/18 Tenofovir Disoproxil Fumarate 300 mg PO WEEKLY 03/24/18 Collagenase Clostridium Hist. [Santyl] 1 applic TP DAILY 05/12/18 Diphenhydramine HCl [Benadryl Capsule -] 25 mg PO Q8H PRN 05/12/18 Fludrocortisone Acetate [Florinef -] 0.1 mg PO DAILY 05/12/18 Loperamide HCl [Imodium A-D] 2 mg PO TID 05/12/18 Methylphenidate HCl 5 mg PO DAILY 05/12/18 Mineral Oil/Petrolat,Wht/Water [Eucerin] 1 applic TP BID 05/12/18 Multivitamins [Tab-A-Vit -] 1 tab PO DAILY 05/12/18 metroNIDAZOLE [Flagyl -] 500 mg PO TID 05/12/18 Review of Systems - Review of Systems Constitutional: reports: No Symptoms, Unintentional Wgt. Loss, Weakness Eyes: reports: No Symptoms HENT: reports: No Symptoms. denies: Difficult Swallowing, Ear Discharge, Ear Pain, Epistaxis, Gingival Bleeding, Hearing Loss, Mouth Swelling, Nasal Congestion, Ocular Prosthesis, Throat Pain, Toothache, Ringing in Ears, Other Neck: reports: No Symptoms. denies: Decreased ROM, Lumps, Pain on Movement, Stiffness, Swollen Glands, Tenderness, Other Cardiovascular: reports: No Symptoms. denies: Chest Pain, Edema, Palpitations, Shortness of Breath, Other Gastrointestinal: reports: Diarrhea Genitourinary: reports: No Symptoms. denies: Burning, Discharge, Dysuria, Flank Pain, Frequency, Hematuria, Incontinence, Lesions, Menses, Pain, Testicular Mass, Testicular Pain, Testicular Swelling, Urgency, Vaginal Bleeding , Other Musculoskeletal: reports: No Symptoms. denies: Back Pain, Crepitus, Decreased ROM, Extremity Pain, Joint Pain, Joint Swelling, Muscle Pain, Muscle Cramps, Muscle Weakness, Other Integumentary: reports: No Symptoms. denies: Blister, Bruising, Change in Color , Eczema, Erythema, Incision, Lesions, Lump, Pallor, Pruritis, Rash, Wound, Other Neurological: reports: No Symptoms. denies: Change in LOC, Change in Speech, Confusion, Dizziness, Headache, Incoordination, Numbness, Parasthesia, Pre- Existing Deficit, Seizure, Syncope, Tremors, Unsteady Gait, Weakness, Other Endocrine: reports: No Symptoms. denies: Excessive Sweating, Flushing, Increased Hunger, Increased Thirst, Intolerance to Cold, Intolerance to Heat, Unexplained Weight Gain, Unexplained Weight Loss, Other Physical Exam Vital Signs: Vital Signs Temperature 98.3 F 05/14/18 08:00 Pulse Rate 85 05/14/18 08:00 Respiratory Rate 20 05/14/18 08:00 Blood Pressure 92/59 05/14/18 08:00 O2 Sat by Pulse Oximetry (%) 98 05/13/18 21:00 Constitutional: Yes: No Distress, Calm Eyes: Yes: Conjunctiva Clear HENT: Yes: Atraumatic Neck: Yes: Supple Cardiovascular: Yes: Regular Rate and Rhythm Respiratory: Yes: CTA Bilaterally Gastrointestinal: Yes: Normal Bowel Sounds, Soft Renal/: Yes: WNL Musculoskeletal: Yes: WNL Extremities: Yes: WNL Integumentary: Yes: WNL Wound/Incision: Yes: Dressing Dry and Intact Neurological: Yes: Alert, Oriented Psychiatric: Yes: Alert Labs: CBC, BMP 05/12/18 20:15 05/12/18 20:15 Microbiology 05/13/18 05:00 Stool Salmonella/Shigella Culture - Preliminary NO ENTERIC PATHOGENS, 24 HOURS, ON PRIMARY PLATES 05/13/18 05:00 Stool Yersinia Culture - Preliminary NO ENTERIC PATHOGENS, 24 HOURS, ON PRIMARY PLATES 05/13/18 05:00 Stool Vibrio Culture - Final NO GROWTH OF VIBRIO SPECIES OBTAINED 05/13/18 05:00 Stool Escherichia coli 0157 Culture - Final NO GROWTH OF E COLI 0157 OBTAINED 05/13/18 05:00 Colon Fluid Gram Stain - Final 05/13/18 05:00 Stool Clostridium difficile Antigen (GEM) - Final 05/13/18 05:00 Stool Clostridium difficile Toxin Assay - Final Imaging - Results Chest X-ray: Report Reviewed Problem List - Problems (1) Chronic diarrhea Code(s): K52.9 - NONINFECTIVE GASTROENTERITIS AND COLITIS, UNSPECIFIED (2) Diabetic foot ulcer Code(s): E11.621 - TYPE 2 DIABETES MELLITUS WITH FOOT ULCER; L97.509 - NON- PRESSURE CHRONIC ULCER OTH PRT UNSP FOOT W UNSP SEVERITY Qualifiers: Diabetic foot ulcer location: heel Diabetes mellitus type: other specified (including JADON) Laterality: unspecified laterality Non-pressure ulcer stage : unspecified non-pressure ulcer stage Qualified Code(s): E13.621 - Other specified diabetes mellitus with foot ulcer; L97.409 - Non-pressure chronic ulcer of unspecified heel and midfoot with unspecified severity (3) ESRD (end stage renal disease) Code(s): N18.6 - END STAGE RENAL DISEASE (4) Generalized weakness Code(s): R53.1 - WEAKNESS (5) Osteomyelitis Code(s): M86.9 - OSTEOMYELITIS, UNSPECIFIED Qualifiers: Osteomyelitis type: unspecified type Osteomyelitis location: unspecified site Qualified Code(s): M86.9 - Osteomyelitis, unspecified Assessment/Plan 52 y.o. male with PMH of DM with chronic foot ulcers, Rt heel OM s/p debridement , ESRD on HD, Hepatitis B on Tenofovir presenting with c/o loose BMs post- eating and drinking, occasional abd cramping and weightloss for the past 2 months. He is s/p treatment for Rt heel OM completed about one month ago. Given 7 day course of treatment with Flagyl for C. difficile Colitis C. difficile colitis DM ESRD on HD s/p treatment for Rt heel OM Chronic Feet ulcers Hepatitis B on Tenofovir -- pt started on Flagyl (allergic to Vancomycin) for now CDT/C. diff Ag + -- If diarrhea persists will switch to Fidaxomicin -- refusing examination of his foot wounds at this time, continue wound care
--- NOTE | 2018-05-14 13:34 | PN ---
Progress Note (short form) - Note Progress Note: Pt seen/ examined feels better diarrhea better on flagyl c diff + i/d consult noted appreciated wound care consult pending refusing dialysis today Discussed with Renal Vital Signs Temp 98.4 F 05/14/18 10:00 Pulse 88 05/14/18 10:00 Resp 18 05/14/18 10:00 BP 96/64 05/14/18 10:00 Pulse Ox 97 05/14/18 09:00 Intake & Output 05/13/18 05/14/18 05/14/18 23:59 11:59 23:59 Intake Total 430 470 Balance 430 470 Weight 191 lb 12.835 oz Intake: Oral 430 470 Other: Voiding Method Diaper Incontinent Bowel Movement Yes Yes Height 6 ft 2 in Body Mass Index (BMI) 24.6 Active Medications Cholestyramine Resin (Questran Packet -) 4 gm PO BID [facility] Last Admin: 05/14/18 09:37 Dose: 4 gm Collagenase (Santyl -) 1 applic TP DAILY [facility]; Protocol Last Admin: 05/13/18 10:29 Dose: 1 applic Collagenase (Santyl -) 1 applic TP DAILY [facility]; Protocol Last Admin: 05/13/18 10:29 Dose: 1 applic Diphenhydramine HCl (Benadryl -) 25 mg PO Q8H PRN PRN Reason: itching Fludrocortisone Acetate (Florinef -) 0.1 mg PO DAILY [facility] Last Admin: 05/14/18 09:36 Dose: 0.1 mg Methylphenidate HCl (Ritalin -) 5 mg PO DAILY [facility] Last Admin: 05/14/18 09:36 Dose: 5 mg Metronidazole (Flagyl -) 500 mg PO TID [facility] Last Admin: 05/14/18 06:51 Dose: 500 mg Multi-Ingredient Lotion (Eucerin (Small Jar) -) 1 applic TP BID [facility] Last Admin: 05/13/18 21:19 Dose: Not Given Multivitamins/Minerals/Vitamin C (Tab-A-Vit -) 1 tab PO DAILY [facility] Last Admin: 05/14/18 09:35 Dose: 1 tab Tenofovir Disoproxil Fumarate (Viread -) 300 mg PO Bertrand@1000 [facility] Last Admin: 05/14/18 09:36 Dose: 300 mg CBC, BMP 05/12/18 20:15 09/14/18 20:15 Microbiology 05/14/18 02:30 Cryptosporidium Antigen - Preliminary Stool Giardia Antigen (GEM) - Preliminary Isospora Smear - Preliminary 05/13/18 05:00 Salmonella/Shigella Culture - Preliminary Stool NO ENTERIC PATHOGENS, 24 HOURS, ON PRIMARY PLATES Yersinia Culture - Preliminary NO ENTERIC PATHOGENS, 24 HOURS, ON PRIMARY PLATES Vibrio Culture - Final NO GROWTH OF VIBRIO SPECIES OBTAINED Escherichia coli 0157 Culture - Final NO GROWTH OF E COLI 0157 OBTAINED 05/13/18 05:00 Gram Stain - Final Colon Fluid 05/13/18 05:00 Clostridium difficile Antigen (GEM) - Final Stool Clostridium difficile Toxin Assay - Final Physical Exam Constitutional: awake/ comfortable Eyes: Yes: Conjunctiva Clear HENT: Yes:wnl Neck: Yes: Supple/ no jvd Cardiovascular: No:rrr Respiratory: Yes: Clear Abd- Soft/ non tender . bs + Neurological: Yes: Alert, Oriented. Heel pads+ sacral decbitis - refuses exam a/p c diif +ve esrd - hd sacral decubitus heel wounds hep B +ve continue present care c diff precautions flagyl dialysis - refuses today will follow discussed with nursing staff also Problem List - Problems (1) Sacral decubitus ulcer Code(s): L89.159 - PRESSURE ULCER OF SACRAL REGION, UNSPECIFIED STAGE (2) Chronic diarrhea Code(s): K52.9 - NONINFECTIVE GASTROENTERITIS AND COLITIS, UNSPECIFIED (3) Bilateral pressure ulcer of feet Code(s): L89.899 - PRESSURE ULCER OF OTHER SITE, UNSPECIFIED STAGE (4) ESRD (end stage renal disease) Code(s): N18.6 - END STAGE RENAL DISEASE
[2018-05-14] MEDS: MINERAL OIL/PETROLAT/WATER TOPICAL CREAM 113 GM JAR TP SCH ×2 (14:03→21:02)
[2018-05-14] MEDS: COLLAGENASE CLOSTRIDIUM HIST. 30 GRAMS TUBE TP SCH ×2 (14:04)
--- NOTE | 2018-05-14 14:47 | PN ---
Progress Note, Physician History of Present Illness: Pt seen and examined at bedside. He is awake and is in better spirits than yesterday. He feels that the diarrhea is a little better. He agrees to go to HD tomorrow. - Current Medication List Current Medications: Active Medications Cholestyramine Resin (Questran Packet -) 4 gm PO BID [facility] Last Admin: 05/14/18 09:37 Dose: 4 gm Collagenase (Santyl -) 1 applic TP DAILY [facility]; Protocol Last Admin: 05/14/18 14:04 Dose: 1 applic Collagenase (Santyl -) 1 applic TP DAILY [facility]; Protocol Last Admin: 05/14/18 14:04 Dose: 1 applic Diphenhydramine HCl (Benadryl -) 25 mg PO Q8H PRN PRN Reason: itching Fludrocortisone Acetate (Florinef -) 0.1 mg PO DAILY [facility] Last Admin: 05/14/18 09:36 Dose: 0.1 mg Methylphenidate HCl (Ritalin -) 5 mg PO DAILY [facility] Last Admin: 05/14/18 09:36 Dose: 5 mg Metronidazole (Flagyl -) 500 mg PO TID [facility] Last Admin: 05/14/18 14:03 Dose: 500 mg Multi-Ingredient Lotion (Eucerin (Small Jar) -) 1 applic TP BID [facility] Last Admin: 05/14/18 14:03 Dose: Not Given Multivitamins/Minerals/Vitamin C (Tab-A-Vit -) 1 tab PO DAILY [facility] Last Admin: 05/14/18 09:35 Dose: 1 tab Tenofovir Disoproxil Fumarate (Viread -) 300 mg PO Bertrand@1000 [facility] Last Admin: 05/14/18 09:36 Dose: 300 mg - Objective Vital Signs: Vital Signs Temperature 98.4 F 05/14/18 10:00 Pulse Rate 88 05/14/18 10:00 Respiratory Rate 18 05/14/18 10:00 Blood Pressure 96/64 05/14/18 10:00 O2 Sat by Pulse Oximetry (%) 97 05/14/18 09:00 Constitutional: Yes: Calm Eyes: Yes: Conjunctiva Clear HENT: Yes: Atraumatic Neck: Yes: Supple Cardiovascular: Yes: S1, S2 Respiratory: Yes: CTA Bilaterally Gastrointestinal: Yes: Normal Bowel Sounds, Soft Genitourinary: Yes: WNL Edema: Yes Edema: LLE: Trace, RLE: Trace Wound/Incision: Yes: Dressing Dry and Intact Neurological: Yes: Oriented Psychiatric: Yes: Oriented Labs: CBC, BMP 05/12/18 20:15 05/12/18 20:15 Assessment/Plan Current Medications Generic Name Dose Route Start Last Admin Trade Name Freq PRN Reason Stop Dose Admin Cholestyramine Resin 4 gm 05/13/18 22:00 05/14/18 09:37 Questran Packet - PO 4 gm BID IRVIN Administration Collagenase 1 applic 05/13/18 10:00 05/14/18 14:04 Santyl - TP 1 applic DAILY IRVIN Administration Protocol Collagenase 1 applic 05/13/18 10:00 05/14/18 14:04 Santyl - TP 1 applic DAILY IRVIN Administration Protocol Diphenhydramine HCl 25 mg 05/12/18 23:22 Benadryl - PO Q8H PRN itching Fludrocortisone Acetate 0.1 mg 05/13/18 10:00 05/14/18 09:36 Florinef - PO 0.1 mg DAILY IRVIN Administration Methylphenidate HCl 5 mg 05/13/18 10:00 05/14/18 09:36 Ritalin - PO 5 mg DAILY IRVIN Administration Metronidazole 500 mg 05/13/18 22:00 05/14/18 14:03 Flagyl - PO 500 mg TID IRVIN Administration Multi-Ingredient Lotion 1 applic 05/13/18 10:00 05/14/18 14:03 Eucerin (Small Jar) - TP Not Given BID IRVIN Multivitamins/Minerals/Vitamin C 1 tab 05/13/18 10:00 05/14/18 09:35 Tab-A-Vit - PO 1 tab DAILY IRVIN Administration Tenofovir Disoproxil Fumarate 300 mg 05/14/18 10:00 05/14/18 09:36 Viread - PO 300 mg Bertrand@1000 IRVIN Administration Impression 1. ESRD 2. anemia 3. osteomyelitis 4. Hep B 5. diarrhea 6. depression 7. non-compliance with HD 8. acidisos - metabolic Plan - HD in am - ID input appreciate - diarrhea workup per primary team - volumes status is stable - will order pre HD labs - will follow Dr Frey
--- NOTE | 2018-05-14 21:51 | EKG ---
Test Reason : Blood Pressure : / mmHG Vent. Rate : 095 BPM Atrial Rate : 095 BPM P-R Int : 166 ms QRS Dur : 082 ms QT Int : 374 ms P-R-T Axes : 021 017 069 degrees QTc Int : 469 ms POOR DATA QUALITY, INTERPRETATION MAY BE ADVERSELY AFFECTED NORMAL SINUS RHYTHM SEPTAL INFARCT , AGE UNDETERMINED ABNORMAL ECG WHEN COMPARED WITH ECG OF 03-MAR-2018 10:41, PREMATURE SUPRAVENTRICULAR COMPLEXES ARE NO LONGER PRESENT SEPTAL INFARCT IS NOW PRESENT Confirmed by NOE YEUNG MD ([id number]) on 05/14/2018 9:51:02 PM Referred By: Confirmed By:NOE YEUNG MD
[2018-05-15] MEDS: metroNIDAZOLE 250 MG TABLET PO SCH ×3 (06:11→21:23)
[2018-05-15] MEDS ORDERED: SODIUM CHLORIDE 250 ML IV PRN (09:51)
[2018-05-15 10:00] LABS: HEMATOCRIT 29.8 % (35.4-49); HEMOGLOBIN 9.7 GM/dL (11.7-16.9); MCH 30.5 pg (25.7-33.7); MCHC 32.6 g/dl (32.0-35.9); MEAN CELL VOLUME 93.4 fl (80-96); MEAN PLT VOLUME 9.9 fl (7.5-11.1); PLATELET COUNT 132 K/MM3 (134-434); RBC 3.19 M/mm3 (4.00-5.60); WHITE BLOOD COUNT 6.6 K/mm3 (4.0-10.0)
[2018-05-15] MEDS ORDERED: EPOETIN ALFA 2,000 UNIT/1 ML VIAL IVPUSH ONE (10:00)
[2018-05-15 10:16] LABS: ANION GAP 18 MMOL/L (8-16); BLOOD UREA NITROGEN 48 mg/dL (7-18); CALCIUM 7.8 mg/dL (8.5-10.1); CHLORIDE 111 mmol/L (98-107); CO2 14 mmol/L (21-32); GLUCOSE,RANDOM 94 mg/dL (74-106); POTASSIUM 3.2 mmol/L (3.5-5.1); SODIUM 143 mmol/L (136-145)
[2018-05-15 10:28] LABS: CREATININE 15.5 mg/dL (0.55-1.3)
--- NOTE | 2018-05-15 10:29 | PN ---
Progress Note, Physician History of Present Illness: patient continues to have dirrhoea diagnosed with cdiff all numbers on the lower side patient clinically stable being dialysed - Current Medication List Current Medications: Active Medications Cholestyramine Resin (Questran Packet -) 4 gm PO BID [facility] Last Admin: 05/14/18 21:01 Dose: 4 gm Collagenase (Santyl -) 1 applic TP DAILY [facility]; Protocol Last Admin: 05/14/18 14:04 Dose: 1 applic Collagenase (Santyl -) 1 applic TP DAILY [facility]; Protocol Last Admin: 05/14/18 14:04 Dose: 1 applic Diphenhydramine HCl (Benadryl -) 25 mg PO Q8H PRN PRN Reason: itching Fludrocortisone Acetate (Florinef -) 0.1 mg PO DAILY [facility] Last Admin: 05/14/18 09:36 Dose: 0.1 mg Methylphenidate HCl (Ritalin -) 5 mg PO DAILY [facility] Last Admin: 05/14/18 09:36 Dose: 5 mg Metronidazole (Flagyl -) 500 mg PO TID [facility] Last Admin: 05/15/18 06:11 Dose: 500 mg Multi-Ingredient Lotion (Eucerin (Small Jar) -) 1 applic TP BID [facility] Last Admin: 05/14/18 21:02 Dose: Not Given Multivitamins/Minerals/Vitamin C (Tab-A-Vit -) 1 tab PO DAILY [facility] Last Admin: 05/14/18 09:35 Dose: 1 tab Tenofovir Disoproxil Fumarate (Viread -) 300 mg PO Bertrand@1000 [facility] Last Admin: 05/14/18 09:36 Dose: 300 mg - Objective Vital Signs: Vital Signs Temperature 98.3 F 05/15/18 09:25 Pulse Rate 88 05/15/18 09:30 Respiratory Rate 18 05/15/18 09:30 Blood Pressure 101/66 05/15/18 09:30 O2 Sat by Pulse Oximetry (%) 97 05/14/18 21:00 Constitutional: Yes: No Distress, Calm Cardiovascular: Yes: Regular Rate and Rhythm Respiratory: Yes: Regular, CTA Bilaterally Gastrointestinal: Yes: Normal Bowel Sounds, Soft Musculoskeletal: Yes: Other Extremities: Yes: Other Labs: CBC, BMP 05/15/18 09:30 05/15/18 09:30 Assessment/Plan Problem List - Problems (1) Chronic diarrhea Code(s): K52.9 - NONINFECTIVE GASTROENTERITIS AND COLITIS, UNSPECIFIED (2) Diabetic foot ulcer Code(s): E11.621 - TYPE 2 DIABETES MELLITUS WITH FOOT ULCER; L97.509 - NON- PRESSURE CHRONIC ULCER OTH PRT UNSP FOOT W UNSP SEVERITY Qualifiers: Diabetic foot ulcer location: heel Diabetes mellitus type: other specified (including JADON) Laterality: unspecified laterality Non-pressure ulcer stage : unspecified non-pressure ulcer stage Qualified Code(s): E13.621 - Other specified diabetes mellitus with foot ulcer; L97.409 - Non-pressure chronic ulcer of unspecified heel and midfoot with unspecified severity (3) ESRD (end stage renal disease) Code(s): N18.6 - END STAGE RENAL DISEASE (4) Generalized weakness Code(s): R53.1 - WEAKNESS (5) Osteomyelitis Code(s): M86.9 - OSTEOMYELITIS, UNSPECIFIED Qualifiers: Osteomyelitis type: unspecified type Osteomyelitis location: unspecified site Qualified Code(s): M86.9 - Osteomyelitis, unspecified Assessment/Plan 52 y.o. male with PMH of DM with chronic foot ulcers, Rt heel OM s/p debridement , ESRD on HD, Hepatitis B on Tenofovir presenting with c/o loose BMs post- eating and drinking, occasional abd cramping and weightloss for the past 2 months. He is s/p treatment for Rt heel OM completed about one month ago. Given 7 day course of treatment with Flagyl for C. difficile Colitis C. difficile colitis DM ESRD on HD s/p treatment for Rt heel OM Chronic Feet ulcers Hepatitis B on Tenofovir plan we will continue flagyl continue to monitor dirrhoea continue to monitor wbc if dirrhoea continues then will have to decide
--- NOTE | 2018-05-15 11:37 | PN ---
Progress Note (short form) - Note Progress Note: 52yo M known to the Vascular service, was admitted to the hospital for diarrhea and weight loss. Pt was last seen at wound clinic on 05/12/18. Pt has history of chronic b/l heel ulcers and has been followed at the wound care clinic for several months. PE: Gen: A&O x3 Resp: breathing comfortably Ext: mulitple b/l heel ulcers presents, no erythema, serous drainage. Problem List - Problems (1) Bilateral pressure ulcer of feet Assessment/Plan: Plan -santyl and elevate/relieve pressure Code(s): L89.899 - PRESSURE ULCER OF OTHER SITE, UNSPECIFIED STAGE
--- NOTE | 2018-05-15 12:09 | PN ---
Progress Note (short form) - Note Progress Note: pt seen/ examined in dialysis awake/ comfortable still having diarrhea afebrile Vital Signs Temp 98.3 F 05/15/18 09:25 Pulse 93 H 05/15/18 10:30 Resp 18 05/15/18 10:30 BP 87/55 05/15/18 10:30 Pulse Ox 97 05/14/18 21:00 Intake & Output 05/14/18 05/15/18 05/15/18 23:59 11:59 23:59 Intake Total 350 Balance 350 Intake: Oral 350 Other: Voiding Method Incontinent Bowel Movement No Yes # Bowel Movements 3 1 Active Medications Cholestyramine Resin (Questran Packet -) 4 gm PO BID [facility] Last Admin: 05/14/18 21:01 Dose: 4 gm Collagenase (Santyl -) 1 applic TP DAILY [facility]; Protocol Last Admin: 05/14/18 14:04 Dose: 1 applic Collagenase (Santyl -) 1 applic TP DAILY [facility]; Protocol Last Admin: 05/14/18 14:04 Dose: 1 applic Diphenhydramine HCl (Benadryl -) 25 mg PO Q8H PRN PRN Reason: itching Fludrocortisone Acetate (Florinef -) 0.1 mg PO DAILY [facility] Last Admin: 05/14/18 09:36 Dose: 0.1 mg Methylphenidate HCl (Ritalin -) 5 mg PO DAILY [facility] Last Admin: 05/14/18 09:36 Dose: 5 mg Metronidazole (Flagyl -) 500 mg PO TID [facility] Last Admin: 05/15/18 06:11 Dose: 500 mg Multi-Ingredient Lotion (Eucerin (Small Jar) -) 1 applic TP BID [facility] Last Admin: 05/14/18 21:02 Dose: Not Given Multivitamins/Minerals/Vitamin C (Tab-A-Vit -) 1 tab PO DAILY [facility] Last Admin: 05/14/18 09:35 Dose: 1 tab Tenofovir Disoproxil Fumarate (Viread -) 300 mg PO Bertrand@1000 [facility] Last Admin: 05/14/18 09:36 Dose: 300 mg CBC, BMP 05/15/18 09:30 05/15/18 09:30 Microbiology 05/14/18 02:30 Cryptosporidium Antigen - Final Stool Giardia Antigen (GEM) - Final Isospora Smear - Preliminary Physical Exam Constitutional: awake/ comfortable Eyes: Yes: Conjunctiva Clear HENT: Yes:wnl Neck: Yes: Supple/ no jvd Cardiovascular: No:rrr Respiratory: Yes: Clear Abd- Soft/ non tender . bs + Neurological: Yes: Alert, Oriented. Heel pads+ sacral decbitis - refuses exam a/p c diif +ve esrd - hd sacral decubitus heel wounds hep B +ve continue present care c diff precautions flagyl dialysis - today will follow discussed with nursing staff also. Problem List - Problems (1) Sacral decubitus ulcer Code(s): L89.159 - PRESSURE ULCER OF SACRAL REGION, UNSPECIFIED STAGE (2) Chronic diarrhea Code(s): K52.9 - NONINFECTIVE GASTROENTERITIS AND COLITIS, UNSPECIFIED (3) Bilateral pressure ulcer of feet Code(s): L89.899 - PRESSURE ULCER OF OTHER SITE, UNSPECIFIED STAGE (4) ESRD (end stage renal disease) Code(s): N18.6 - END STAGE RENAL DISEASE Problem List - Problems (1) Sacral decubitus ulcer Code(s): L89.159 - PRESSURE ULCER OF SACRAL REGION, UNSPECIFIED STAGE (2) Chronic diarrhea Code(s): K52.9 - NONINFECTIVE GASTROENTERITIS AND COLITIS, UNSPECIFIED (3) Bilateral pressure ulcer of feet Code(s): L89.899 - PRESSURE ULCER OF OTHER SITE, UNSPECIFIED STAGE (4) ESRD (end stage renal disease) Code(s): N18.6 - END STAGE RENAL DISEASE
[2018-05-15] MEDS ORDERED: PT OWN MED DRAWER 7, Y5N ONE ×2 (13:11→19:48)
[2018-05-15] MEDS: MULTIVITAMINS (DAILY MVI) TABLET (FP) PO SCH (13:14)
[2018-05-15] MEDS: METHYLPHENIDATE HCL 5 MG TABLET PO SCH (13:14)
[2018-05-15] MEDS: FLUDROCORTISONE ACETATE 0.1 MG TABLET (FP) PO SCH (13:14)
[2018-05-15] MEDS: CHOLESTYRAMINE/SUCROSE 4 GM PACKET PO SCH ×2 (13:14→21:24)
[2018-05-15] MEDS: COLLAGENASE CLOSTRIDIUM HIST. 30 GRAMS TUBE TP SCH ×2 (13:16)
[2018-05-15] MEDS: MINERAL OIL/PETROLAT/WATER TOPICAL CREAM 113 GM JAR TP SCH ×2 (13:17→21:24)
[2018-05-15 14:01] LABS: CREATININE 5.1 mg/dL (0.55-1.3)
--- NOTE | 2018-05-15 15:34 | PN ---
Progress Note, Physician History of Present Illness: Pt seen and examined at bedside. He is tolerating HD. He denies shortness of breath. - Current Medication List Current Medications: Active Medications Cholestyramine Resin (Questran Packet -) 4 gm PO BID [facility] Last Admin: 05/15/18 13:14 Dose: 4 gm Collagenase (Santyl -) 1 applic TP DAILY [facility]; Protocol Last Admin: 05/15/18 13:16 Dose: 1 applic Collagenase (Santyl -) 1 applic TP DAILY [facility]; Protocol Last Admin: 05/15/18 13:16 Dose: 1 applic Diphenhydramine HCl (Benadryl -) 25 mg PO Q8H PRN PRN Reason: itching Fludrocortisone Acetate (Florinef -) 0.1 mg PO DAILY [facility] Last Admin: 05/15/18 13:14 Dose: 0.1 mg Methylphenidate HCl (Ritalin -) 5 mg PO DAILY [facility] Last Admin: 05/15/18 13:14 Dose: 5 mg Metronidazole (Flagyl -) 500 mg PO TID [facility] Last Admin: 05/15/18 13:14 Dose: 500 mg Multi-Ingredient Lotion (Eucerin (Small Jar) -) 1 applic TP BID [facility] Last Admin: 05/15/18 13:17 Dose: 1 applic Multivitamins/Minerals/Vitamin C (Tab-A-Vit -) 1 tab PO DAILY [facility] Last Admin: 05/15/18 13:14 Dose: 1 tab Tenofovir Disoproxil Fumarate (Viread -) 300 mg PO Bertrand@1000 [facility] Last Admin: 05/14/18 09:36 Dose: 300 mg - Objective Vital Signs: Vital Signs Temperature 98.3 F 05/15/18 09:25 Pulse Rate 84 05/15/18 12:59 Respiratory Rate 18 05/15/18 12:59 Blood Pressure 105/64 05/15/18 12:59 O2 Sat by Pulse Oximetry (%) 97 05/14/18 21:00 Constitutional: Yes: Calm Eyes: Yes: Conjunctiva Clear HENT: Yes: Atraumatic Neck: Yes: Supple Cardiovascular: Yes: S1, S2 Respiratory: Yes: CTA Bilaterally Gastrointestinal: Yes: Soft, Other (diarrhea) Genitourinary: Yes: WNL Musculoskeletal: Yes: WNL Edema: LLE: Trace, RLE: Trace Neurological: Yes: Oriented Psychiatric: Yes: Oriented Labs: CBC, BMP 05/15/18 09:30 05/15/18 12:45 Assessment/Plan Current Medications Generic Name Dose Route Start Last Admin Trade Name Jessica PRN Reason Stop Dose Admin Cholestyramine Resin 4 gm 05/13/18 22:00 05/15/18 13:14 Questran Packet - PO 4 gm BID [facility] Administration Collagenase 1 applic 05/13/18 10:00 05/15/18 13:16 Santyl - TP 1 applic DAILY [facility] Administration Protocol Collagenase 1 applic 05/13/18 10:00 05/15/18 13:16 Santyl - TP 1 applic DAILY [facility] Administration Protocol Diphenhydramine HCl 25 mg 05/12/18 23:22 Benadryl - PO Q8H PRN itching Fludrocortisone Acetate 0.1 mg 05/13/18 10:00 05/15/18 13:14 Florinef - PO 0.1 mg DAILY [facility] Administration Methylphenidate HCl 5 mg 05/13/18 10:00 05/15/18 13:14 Ritalin - PO 5 mg DAILY [facility] Administration Metronidazole 500 mg 05/13/18 22:00 05/15/18 13:14 Flagyl - PO 500 mg TID [facility] Administration Multi-Ingredient Lotion 1 applic 05/13/18 10:00 05/15/18 13:17 Eucerin (Small Jar) - TP 1 applic BID [facility] Administration Multivitamins/Minerals/Vitamin C 1 tab 05/13/18 10:00 05/15/18 13:14 Tab-A-Vit - PO 1 tab DAILY [facility] Administration Potassium Chloride 40 meq 05/15/18 15:31 Potassium Chloride Oral Liquid PO 05/15/18 15:32 ONCE ONE Tenofovir Disoproxil Fumarate 300 mg 05/14/18 10:00 05/14/18 09:36 Viread - PO 300 mg Bertrand@1000 [facility] Administration Impression 1. ESRD 2. anemia 3. osteomyelitis 4. Hep B 5. diarrhea 6. depression 7. non-compliance with HD 8. acidisos - metabolic Plan - HD today - replace potassium - 3k bath on HD - repeat labs in am - pt still with diarrhea - will follow Dr Frey
[2018-05-15] MEDS ORDERED: POTASSIUM CHLORIDE ORAL LIQUID 20 MEQ/15 ML PO ONE (16:00)
[2018-05-15] MEDS ORDERED: SODIUM CHLORIDE 250 ML IV ONE ×2 (19:30→20:30)
[2018-05-16] MEDS: metroNIDAZOLE 250 MG TABLET PO SCH ×3 (05:29→21:01)
[2018-05-16] MEDS ORDERED: SODIUM CHLORIDE 250 ML IV ONE (07:30)
--- NOTE | 2018-05-16 07:41 | HOSP ---
Subjective - Review of Symptoms Events since last encounter: Hospitalist Encounter Notified by the RN that the patient was hypotensive 60/40s, asymptomatic Subjective: Arrived to bedside, patient is alert, awake, oriented to name, , place. Has no complaints 52yM with PMH ESRD on dialysis T,Th,Sa, osteomyelitis R foot, hepatitis B, DM ( resolved with onset of ESRD), B/L foot ulcers presented to the ED with chronic LBM after meals for months Plan: Had RN notify Nephrology NS 250ml bolus ordered per renal Will continue to monitor Will have PCP team f/u in am Cardiovascular: Yes: Other (Hypotensive) Physical Examination Vital Signs: Vital Signs Temperature 99.1 F 05/16/18 06:00 Pulse Rate 96 H 05/16/18 06:00 Respiratory Rate 18 05/16/18 06:00 Blood Pressure 69/44 05/16/18 06:00 O2 Sat by Pulse Oximetry (%) 93 L 05/15/18 21:00 Constitutional: Yes: No Distress, Calm Eyes: Yes: Conjunctiva Clear, EOM Intact, PERRL HENT: Yes: WNL, Atraumatic, Normocephalic Neck: Yes: WNL, Supple, Trachea Midline Cardiovascular: Yes: Regular Rate and Rhythm, S1, S2 Respiratory: Yes: WNL, Regular, CTA Bilaterally Peripheral Pulses WNL: Yes Wound/Incision: Yes: Dressing Dry and Intact Neurological: Yes: WNL, Alert, Oriented, Cran Nerves II-XII Intact Psychiatric: Yes: WNL, Alert, Oriented Labs: CBC, BMP 05/15/18 09:30 05/15/18 12:45
--- NOTE | 2018-05-16 10:12 | PN ---
Progress Note, Physician History of Present Illness: continues to have sever dirrhoea still with foul smelling patient is comfortable no other issues tolerated dialysis - Current Medication List Current Medications: Active Medications Cholestyramine Resin (Questran Packet -) 4 gm PO BID [facility] Last Admin: 05/15/18 21:24 Dose: 4 gm Collagenase (Santyl -) 1 applic TP DAILY [facility]; Protocol Last Admin: 05/15/18 13:16 Dose: 1 applic Collagenase (Santyl -) 1 applic TP DAILY [facility]; Protocol Last Admin: 05/15/18 13:16 Dose: 1 applic Diphenhydramine HCl (Benadryl -) 25 mg PO Q8H PRN PRN Reason: itching Fludrocortisone Acetate (Florinef -) 0.1 mg PO DAILY [facility] Last Admin: 05/15/18 13:14 Dose: 0.1 mg Methylphenidate HCl (Ritalin -) 5 mg PO DAILY [facility] Last Admin: 05/15/18 13:14 Dose: 5 mg Metronidazole (Flagyl -) 500 mg PO TID [facility] Last Admin: 05/16/18 05:29 Dose: 500 mg Multi-Ingredient Lotion (Eucerin (Small Jar) -) 1 applic TP BID [facility] Last Admin: 05/15/18 21:24 Dose: Not Given Multivitamins/Minerals/Vitamin C (Tab-A-Vit -) 1 tab PO DAILY [facility] Last Admin: 05/15/18 13:14 Dose: 1 tab Tenofovir Disoproxil Fumarate (Viread -) 300 mg PO Bertrand@1000 [facility] Last Admin: 05/14/18 09:36 Dose: 300 mg - Objective Vital Signs: Vital Signs Temperature 99.1 F 05/16/18 06:00 Pulse Rate 96 H 05/16/18 06:00 Respiratory Rate 05/16/18 06:00 Blood Pressure 69/44 05/16/18 06:00 O2 Sat by Pulse Oximetry (%) 93 L 05/15/18 21:00 Constitutional: Yes: No Distress, Calm Cardiovascular: Yes: Regular Rate and Rhythm Respiratory: Yes: Regular, CTA Bilaterally Gastrointestinal: Yes: Normal Bowel Sounds, Soft, Other (dirrhoea) Musculoskeletal: Yes: WNL Extremities: Yes: Other Wound/Incision: Yes: Dressing Dry and Intact Neurological: Yes: Alert, Oriented Psychiatric: Yes: Alert, Oriented Labs: CBC, BMP 05/15/18 09:30 05/15/18 12:45 Assessment/Plan Problem List - Problems (1) Chronic diarrhea Code(s): K52.9 - NONINFECTIVE GASTROENTERITIS AND COLITIS, UNSPECIFIED (2) Diabetic foot ulcer Code(s): E11.621 - TYPE 2 DIABETES MELLITUS WITH FOOT ULCER; L97.509 - NON- PRESSURE CHRONIC ULCER OTH PRT UNSP FOOT W UNSP SEVERITY Qualifiers: Diabetic foot ulcer location: heel Diabetes mellitus type: other specified (including JADON) Laterality: unspecified laterality Non-pressure ulcer stage : unspecified non-pressure ulcer stage Qualified Code(s): E13.621 - Other specified diabetes mellitus with foot ulcer; L97.409 - Non-pressure chronic ulcer of unspecified heel and midfoot with unspecified severity (3) ESRD (end stage renal disease) Code(s): N18.6 - END STAGE RENAL DISEASE (4) Generalized weakness Code(s): R53.1 - WEAKNESS (5) Osteomyelitis Code(s): M86.9 - OSTEOMYELITIS, UNSPECIFIED Qualifiers: Osteomyelitis type: unspecified type Osteomyelitis location: unspecified site Qualified Code(s): M86.9 - Osteomyelitis, unspecified Assessment/Plan 52 y.o. male with PMH of DM with chronic foot ulcers, Rt heel OM s/p debridement , ESRD on HD, Hepatitis B on Tenofovir presenting with c/o loose BMs post- eating and drinking, occasional abd cramping and weightloss for the past 2 months. He is s/p treatment for Rt heel OM completed about one month ago. Given 7 day course of treatment with Flagyl for C. difficile Colitis C. difficile colitis DM ESRD on HD s/p treatment for Rt heel OM Chronic Feet ulcers Hepatitis B on Tenofovir patient continues to have dirrhoea has been on flagyl for quite some time,allergic to vanco will discuss with pharmacy if fidoximicin is available and will switch the patient as patient is allergic to vanco
[2018-05-16] MEDS: METHYLPHENIDATE HCL 5 MG TABLET PO SCH (10:21)
[2018-05-16] MEDS: MULTIVITAMINS (DAILY MVI) TABLET (FP) PO SCH (10:21)
[2018-05-16] MEDS: CHOLESTYRAMINE/SUCROSE 4 GM PACKET PO SCH ×2 (10:22→21:02)
[2018-05-16] MEDS: MINERAL OIL/PETROLAT/WATER TOPICAL CREAM 113 GM JAR TP SCH ×2 (10:22→21:02)
[2018-05-16] MEDS: FLUDROCORTISONE ACETATE 0.1 MG TABLET (FP) PO SCH (10:22)
--- NOTE | 2018-05-16 11:17 | PN ---
Progress Note (short form) - Note Progress Note: pt seen/ examined partner at bedside still having diarrhea afebrile Vital Signs - 24 hr 05/15/18 05/15/18 05/15/18 12:00 12:30 12:45 Temperature Pulse Rate 99 H 110 H 100 H Respiratory 18 18 18 Rate Blood Pressure 90/56 91/53 109/68 O2 Sat by Pulse Oximetry (%) 05/15/18 05/15/18 05/15/18 12:59 15:57 18:56 Temperature 99.8 F H Pulse Rate 84 85 110 H Respiratory 18 20 20 Rate Blood Pressure 105/64 121/68 91/41 O2 Sat by Pulse Oximetry (%) 05/15/18 05/15/18 05/16/18 21:00 22:00 06:00 Temperature 100.3 F H 99.1 F Pulse Rate 97 H 96 H Respiratory 20 20 18 Rate Blood Pressure 83/48 69/44 O2 Sat by Pulse 93 L Oximetry (%) 05/16/18 10:00 Temperature 98.4 F Pulse Rate 96 H Respiratory 18 Rate Blood Pressure 96/60 O2 Sat by Pulse Oximetry (%) Current Medications Generic Name Dose Route Start Last Admin Trade Name Freq PRN Reason Stop Dose Admin Cholestyramine Resin 4 gm 05/13/18 22:00 05/16/18 10:22 Questran Packet - PO 4 gm BID [facility] Administration Collagenase 1 applic 05/13/18 10:00 05/15/18 13:16 Santyl - TP 1 applic DAILY [facility] Administration Protocol Collagenase 1 applic 05/13/18 10:00 05/15/18 13:16 Santyl - TP 1 applic DAILY [facility] Administration Protocol Diphenhydramine HCl 25 mg 05/12/18 23:22 Benadryl - PO Q8H PRN itching Fludrocortisone Acetate 0.1 mg 05/13/18 10:00 05/16/18 10:22 Florinef - PO 0.1 mg DAILY [facility] Administration Methylphenidate HCl 5 mg 05/13/18 10:00 05/16/18 10:21 Ritalin - PO 5 mg DAILY [facility] Administration Metronidazole 500 mg 05/13/18 22:00 05/16/18 05:29 Flagyl - PO 500 mg TID [facility] Administration Multi-Ingredient Lotion 1 applic 05/13/18 10:00 05/16/18 10:22 Eucerin (Small Jar) - TP Not Given BID [facility] Multivitamins/Minerals/Vitamin C 1 tab 05/13/18 10:00 05/16/18 10:21 Tab-A-Vit - PO 1 tab DAILY [facility] Administration Tenofovir Disoproxil Fumarate 300 mg 05/14/18 10:00 05/14/18 09:36 Viread - PO 300 mg Bertrand@1000 [facility] Administration Laboratory Results - last 24 hr 05/13/18 05/13/18 05/15/18 10:00 10:15 09:30 BUN Creatinine Stool Osmolality Cancelled Stool O & P Wet [place] Hep C Ab Diagnostic <0.1 Liver Fibrosis Interp O & P Permanent Slide Final report 05/15/18 12:45 BUN 14 Creatinine 5.1 H Stool Osmolality Stool O & P Wet [place] Hep C Ab Diagnostic Liver Fibrosis Interp O & P Permanent Slide Physical Exam Constitutional: awake/ comfortable Eyes: Yes: Conjunctiva Clear HENT: Yes:wnl Neck: Yes: Supple/ no jvd Cardiovascular: No:rrr Respiratory: Yes: Clear Abd- Soft/ non tender . bs + Neurological: Yes: Alert, Oriented. Heel pads+ sacral decbitis - refuses exam a/p c diif +ve esrd - hd sacral decubitus heel wounds hep B +ve continue present care c diff precautions BRAT Diet flagyl pt allergic to PO Vanco-- ID will see if Fidoximicin is available in pharmacy will follow discussed with nursing staff also. Problem List - Problems (1) Sacral decubitus ulcer Code(s): L89.159 - PRESSURE ULCER OF SACRAL REGION, UNSPECIFIED STAGE (2) Chronic diarrhea Code(s): K52.9 - NONINFECTIVE GASTROENTERITIS AND COLITIS, UNSPECIFIED (3) Bilateral pressure ulcer of feet Code(s): L89.899 - PRESSURE ULCER OF OTHER SITE, UNSPECIFIED STAGE (4) ESRD (end stage renal disease) Code(s): N18.6 - END STAGE RENAL DISEASE
[2018-05-16] MEDS: COLLAGENASE CLOSTRIDIUM HIST. 30 GRAMS TUBE TP SCH ×2 (13:58)
[2018-05-16 14:17] LABS: GLIADIN ANTIBODY IGA 4 units (0-19); GLIADIN ANTIBODY IGG 2 units (0-19); TRANSGLUTAMINASE IGG < 2 U/mL (0-5)
[2018-05-16] MEDS ORDERED: SODIUM CHLORIDE 250 ML IV STA (15:24)
--- NOTE | 2018-05-16 15:24 | PN ---
Progress Note, Physician History of Present Illness: Pt seen and examined at bedside. He is awake and alert. He does not want to go to HD tomorrow. He feels that the diarrhea is a little better. - Current Medication List Current Medications: Active Medications Cholestyramine Resin (Questran Packet -) 4 gm PO BID [facility] Last Admin: 05/16/18 10:22 Dose: 4 gm Collagenase (Santyl -) 1 applic TP DAILY [facility]; Protocol Last Admin: 05/16/18 13:58 Dose: 1 applic Collagenase (Santyl -) 1 applic TP DAILY [facility]; Protocol Last Admin: 05/16/18 13:58 Dose: 1 applic Diphenhydramine HCl (Benadryl -) 25 mg PO Q8H PRN PRN Reason: itching Fludrocortisone Acetate (Florinef -) 0.1 mg PO DAILY [facility] Last Admin: 05/16/18 10:22 Dose: 0.1 mg Methylphenidate HCl (Ritalin -) 5 mg PO DAILY [facility] Last Admin: 05/16/18 10:21 Dose: 5 mg Metronidazole (Flagyl -) 500 mg PO TID [facility] Last Admin: 05/16/18 13:55 Dose: 500 mg Multi-Ingredient Lotion (Eucerin (Small Jar) -) 1 applic TP BID [facility] Last Admin: 05/16/18 10:22 Dose: Not Given Multivitamins/Minerals/Vitamin C (Tab-A-Vit -) 1 tab PO DAILY [facility] Last Admin: 05/16/18 10:21 Dose: 1 tab Tenofovir Disoproxil Fumarate (Viread -) 300 mg PO Bertrand@1000 [facility] Last Admin: 05/14/18 09:36 Dose: 300 mg - Objective Vital Signs: Vital Signs Temperature 98.3 F 05/16/18 14:43 Pulse Rate 68 05/16/18 14:43 Respiratory Rate 18 05/16/18 14:43 Blood Pressure 120/84 05/16/18 14:43 O2 Sat by Pulse Oximetry (%) 97 05/16/18 09:00 Constitutional: Yes: Calm Eyes: Yes: Conjunctiva Clear HENT: Yes: Atraumatic Neck: Yes: Supple Cardiovascular: Yes: S1, S2 Respiratory: Yes: CTA Bilaterally Gastrointestinal: Yes: Soft Edema: No Neurological: Yes: Oriented Psychiatric: Yes: Oriented Labs: CBC, BMP 05/15/18 09:30 05/15/18 12:45 Assessment/Plan Current Medications Generic Name Dose Route Start Last Admin Trade Name Fregalina PRN Reason Stop Dose Admin Cholestyramine Resin 4 gm 05/13/18 22:00 05/16/18 10:22 Questran Packet - PO 4 gm BID [facility] Administration Collagenase 1 applic 05/13/18 10:00 05/16/18 13:58 Santyl - TP 1 applic DAILY [facility] Administration Protocol Collagenase 1 applic 05/13/18 10:00 05/16/18 13:58 Santyl - TP 1 applic DAILY [facility] Administration Protocol Diphenhydramine HCl 25 mg 05/12/18 23:22 Benadryl - PO Q8H PRN itching Fludrocortisone Acetate 0.1 mg 05/13/18 10:00 05/16/18 10:22 Florinef - PO 0.1 mg DAILY [facility] Administration Methylphenidate HCl 5 mg 05/13/18 10:00 05/16/18 10:21 Ritalin - PO 5 mg DAILY [facility] Administration Metronidazole 500 mg 05/13/18 22:00 05/16/18 13:55 Flagyl - PO 500 mg TID [facility] Administration Multi-Ingredient Lotion 1 applic 05/13/18 10:00 05/16/18 10:22 Eucerin (Small Jar) - TP Not Given BID [facility] Multivitamins/Minerals/Vitamin C 1 tab 05/13/18 10:00 05/16/18 10:21 Tab-A-Vit - PO 1 tab DAILY [facility] Administration Tenofovir Disoproxil Fumarate 300 mg 05/14/18 10:00 05/14/18 09:36 Viread - PO 300 mg Bertrand@1000 [facility] Administration Impression 1. ESRD 2. anemia 3. osteomyelitis 4. Hep B 5. diarrhea 6. depression 7. non-compliance with HD 8. acidisos - metabolic Plan - will give another 250 cc bolus - monitor blood pressure - repeat labs in am - 3k bath on HD - repeat labs in am - pt still with diarrhea - will follow Dr Frey
[2018-05-16] MEDS ORDERED: PT OWN MED DRAWER 7, Y5N ONE (20:44)
[2018-05-17 00:12] LABS: HBSAG SCREEN Negative (Negative); HEP A AB, IGM Negative (Negative); HEP B CORE AB, TOT Negative (Negative)
[2018-05-17] MEDS: metroNIDAZOLE 250 MG TABLET PO SCH ×3 (06:27→23:00)
[2018-05-17 07:09] LABS: BASO % 0.8 % (0-2.0); HEMOGLOBIN 9.9 GM/dL (11.7-16.9); LYMPH % 29.9 % (8-40); MCH 30.4 pg (25.7-33.7); MCHC 31.9 g/dl (32.0-35.9); MEAN CELL VOLUME 95.1 fl (80-96); MEAN PLT VOLUME 9.9 fl (7.5-11.1); MONO % 14.3 % (3.8-10.2); PLATELET COUNT 125 K/MM3 (134-434); RBC 3.26 M/mm3 (4.00-5.60); WHITE BLOOD COUNT 6.2 K/mm3 (4.0-10.0)
[2018-05-17 07:37] LABS: ANION GAP 10 MMOL/L (8-16); BLOOD UREA NITROGEN 27 mg/dL (7-18); CALCIUM 7.8 mg/dL (8.5-10.1); CHLORIDE 110 mmol/L (98-107); CO2 21 mmol/L (21-32); GLUCOSE,RANDOM 91 mg/dL (74-106); SODIUM 141 mmol/L (136-145)
--- NOTE | 2018-05-17 09:19 | PN ---
Progress Note, Physician History of Present Illness: continues to have dirrhoea no change on flagyl still - Current Medication List Current Medications: Active Medications Cholestyramine Resin (Questran Packet -) 4 gm PO BID [facility] Last Admin: 05/16/18 21:02 Dose: 4 gm Collagenase (Santyl -) 1 applic TP DAILY [facility]; Protocol Last Admin: 05/16/18 13:58 Dose: 1 applic Collagenase (Santyl -) 1 applic TP DAILY [facility]; Protocol Last Admin: 05/16/18 13:58 Dose: 1 applic Diphenhydramine HCl (Benadryl -) 25 mg PO Q8H PRN PRN Reason: itching Fludrocortisone Acetate (Florinef -) 0.1 mg PO DAILY [facility] Last Admin: 05/16/18 10:22 Dose: 0.1 mg Methylphenidate HCl (Ritalin -) 5 mg PO DAILY [facility] Last Admin: 05/16/18 10:21 Dose: 5 mg Metronidazole (Flagyl -) 500 mg PO TID [facility] Last Admin: 05/17/18 06:27 Dose: 500 mg Multi-Ingredient Lotion (Eucerin (Small Jar) -) 1 applic TP BID [facility] Last Admin: 05/16/18 21:02 Dose: Not Given Multivitamins/Minerals/Vitamin C (Tab-A-Vit -) 1 tab PO DAILY [facility] Last Admin: 05/16/18 10:21 Dose: 1 tab Tenofovir Disoproxil Fumarate (Viread -) 300 mg PO Bertrand@1000 [facility] Last Admin: 05/14/18 09:36 Dose: 300 mg - Objective Vital Signs: Vital Signs Temperature 98.2 F 05/17/18 06:00 Pulse Rate 83 05/17/18 06:00 Respiratory Rate 18 05/17/18 06:00 Blood Pressure 104/59 05/17/18 06:00 O2 Sat by Pulse Oximetry (%) 97 05/16/18 21:00 Constitutional: Yes: No Distress, Calm Cardiovascular: Yes: Regular Rate and Rhythm Respiratory: Yes: Regular, CTA Bilaterally Gastrointestinal: Yes: Normal Bowel Sounds, Soft Musculoskeletal: Yes: WNL Extremities: Yes: Other Neurological: Yes: Alert, Oriented Psychiatric: Yes: Alert, Oriented Labs: CBC, BMP 05/17/18 06:30 05/17/18 06:30 Assessment/Plan Problem List - Problems (1) Chronic diarrhea Code(s): K52.9 - NONINFECTIVE GASTROENTERITIS AND COLITIS, UNSPECIFIED (2) Diabetic foot ulcer Code(s): E11.621 - TYPE 2 DIABETES MELLITUS WITH FOOT ULCER; L97.509 - NON- PRESSURE CHRONIC ULCER OTH PRT UNSP FOOT W UNSP SEVERITY Qualifiers: Diabetic foot ulcer location: heel Diabetes mellitus type: other specified (including JADON) Laterality: unspecified laterality Non-pressure ulcer stage : unspecified non-pressure ulcer stage Qualified Code(s): E13.621 - Other specified diabetes mellitus with foot ulcer; L97.409 - Non-pressure chronic ulcer of unspecified heel and midfoot with unspecified severity (3) ESRD (end stage renal disease) Code(s): N18.6 - END STAGE RENAL DISEASE (4) Generalized weakness Code(s): R53.1 - WEAKNESS (5) Osteomyelitis Code(s): M86.9 - OSTEOMYELITIS, UNSPECIFIED Qualifiers: Osteomyelitis type: unspecified type Osteomyelitis location: unspecified site Qualified Code(s): M86.9 - Osteomyelitis, unspecified Assessment/Plan 52 y.o. male with PMH of DM with chronic foot ulcers, Rt heel OM s/p debridement , ESRD on HD, Hepatitis B on Tenofovir presenting with c/o loose BMs post- eating and drinking, occasional abd cramping and weightloss for the past 2 months. He is s/p treatment for Rt heel OM completed about one month ago. Given 7 day course of treatment with Flagyl for C. difficile Colitis C. difficile colitis DM ESRD on HD s/p treatment for Rt heel OM Chronic Feet ulcers Hepatitis B on Tenofovir i think the patient needs to be switched on fidoximicin will d/w the primary team about further plans
[2018-05-17] MEDS ORDERED: POTASSIUM CHLORIDE TABS 20 MEQ TABLET.ER (FP) PO ONE (09:21)
[2018-05-17] MEDS: FLUDROCORTISONE ACETATE 0.1 MG TABLET (FP) PO SCH (09:46)
[2018-05-17] MEDS: MINERAL OIL/PETROLAT/WATER TOPICAL CREAM 113 GM JAR TP SCH ×2 (09:46→23:00)
[2018-05-17] MEDS: METHYLPHENIDATE HCL 5 MG TABLET PO SCH (09:47)
[2018-05-17] MEDS: CHOLESTYRAMINE/SUCROSE 4 GM PACKET PO SCH ×2 (09:47→23:00)
[2018-05-17] MEDS: COLLAGENASE CLOSTRIDIUM HIST. 30 GRAMS TUBE TP SCH ×2 (09:48)
[2018-05-17] MEDS: MULTIVITAMINS (DAILY MVI) TABLET (FP) PO SCH (09:48)
[2018-05-17] MEDS ORDERED: PT OWN MED DRAWER 7, Y5N ONE ×2 (09:57→23:01)
--- NOTE | 2018-05-17 10:35 | PN ---
Progress Note (short form) - Note Progress Note: pt seen/ examined has abdominal pain - diffuse still having diarrhea afebrile Vital Signs - 24 hr 05/16/18 05/16/18 05/16/18 14:43 16:59 21:00 Temperature 98.3 F 98.5 F Pulse Rate 68 92 H Respiratory 18 20 20 Rate Blood Pressure 120/84 114/71 O2 Sat by Pulse 97 Oximetry (%) 05/16/18 05/17/18 05/17/18 22:00 06:00 09:45 Temperature 98.4 F 98.2 F 99.2 F Pulse Rate 92 H 83 88 Respiratory 20 18 18 Rate Blood Pressure 105/67 104/59 80/50 O2 Sat by Pulse Oximetry (%) Current Medications Generic Name Dose Route Start Last Admin Trade Name Freq PRN Reason Stop Dose Admin Cholestyramine Resin 4 gm 05/13/18 22:00 05/17/18 09:47 Questran Packet - PO 4 gm BID IRVIN Administration Collagenase 1 applic 05/13/18 10:00 05/17/18 09:48 Santyl - TP 1 applic DAILY IRVIN Administration Protocol Collagenase 1 applic 05/13/18 10:00 05/17/18 09:48 Santyl - TP 1 applic DAILY [facility]IN Administration Protocol Diphenhydramine HCl 25 mg 05/12/18 23:22 Benadryl - PO Q8H PRN itching Fludrocortisone Acetate 0.1 mg 05/13/18 10:00 05/17/18 09:46 Florinef - PO 0.1 mg DAILY IRVIN Administration Methylphenidate HCl 5 mg 05/13/18 10:00 05/17/18 09:47 Ritalin - PO 5 mg DAILY IRVIN Administration Metronidazole 500 mg 05/13/18 22:00 05/17/18 06:27 Flagyl - PO 500 mg TID IRVIN Administration Multi-Ingredient Lotion 1 applic 05/13/18 10:00 05/17/18 09:46 Eucerin (Small Jar) - TP Not Given BID IRVIN Multivitamins/Minerals/Vitamin C 1 tab 05/13/18 10:00 05/17/18 09:48 Tab-A-Vit - PO 1 tab DAILY IRVIN Administration Tenofovir Disoproxil Fumarate 300 mg 05/14/18 10:00 05/14/18 09:36 Viread - PO 300 mg Bertrand@1000 IR[facility]IN Administration Laboratory Results - last 24 hr 05/14/18 05/15/18 05/17/18 07:15 09:30 06:30 WBC 6.2 RBC 3.26 L Hgb 9.9 L Hct 31.0 L MCV 95.1 MCH 30.4 MCHC 31.9 L RDW 15.0 Plt Count 125 L MPV 9.9 Absolute Neuts (auto) 3.1 Neutrophils % 51.0 D Lymphocytes % 29.9 D Monocytes % 14.3 H Eosinophils % 4.0 D Basophils % 0.8 Nucleated RBC % 0 Sodium Potassium Chloride Carbon Dioxide Anion Gap BUN Creatinine Creat Clearance w eGFR Random Glucose Calcium Gastrin 275 H IgA 293 Endomysial IgA Ab Negative Tiss Transglutamin IgG < 2 Tiss Transglutamin IgA <2 Anti-Gliadin IgG Ab 2 Anti-Gliadin IgA Ab 4 Hep A IgM Ab Confirm Negative Hepatitis A Ab Total Positive H Hep Bs Antigen Negative Hep Bs Antibody Reactive Hep B Core Total Ab Negative 05/17/18 06:30 WBC RBC Hgb Hct MCV MCH MCHC RDW Plt Count MPV Absolute Neuts (auto) Neutrophils % Lymphocytes % Monocytes % Eosinophils % Basophils % Nucleated RBC % Sodium 141 Potassium 3.0 L Chloride 110 H Carbon Dioxide 21 Anion Gap 10 BUN 27 H Creatinine 10.0 H* Creat Clearance w eGFR 5.55 Random Glucose 91 Calcium 7.8 L Gastrin IgA Endomysial IgA Ab Tiss Transglutamin IgG Tiss Transglutamin IgA Anti-Gliadin IgG Ab Anti-Gliadin IgA Ab Hep A IgM Ab Confirm Hepatitis A Ab Total Hep Bs Antigen Hep Bs Antibody Hep B Core Total Ab Physical Exam Constitutional: awake/ comfortable Eyes: Yes: Conjunctiva Clear HENT: Yes:wnl Neck: Yes: Supple/ no jvd Cardiovascular: No:rrr Respiratory: Yes: Clear Abd- Soft/ non tender . bs + Neurological: Yes: Alert, Oriented. Heel pads+ sacral decbitis - refuses exam a/p c diif +ve esrd - hd sacral decubitus heel wounds hep B +ve continue present care c diff precautions BRAT Diet dc- pt doesnt want was hypotensive flagyl pt allergic to PO Vanco--I spoke with pre- auth for medication -- expedited review-- will know today if pt can receive medication or not will follow discussed with nursing staff also. Problem List - Problems (1) Sacral decubitus ulcer Code(s): L89.159 - PRESSURE ULCER OF SACRAL REGION, UNSPECIFIED STAGE (2) Chronic diarrhea Code(s): K52.9 - NONINFECTIVE GASTROENTERITIS AND COLITIS, UNSPECIFIED (3) Bilateral pressure ulcer of feet Code(s): L89.899 - PRESSURE ULCER OF OTHER SITE, UNSPECIFIED STAGE (4) ESRD (end stage renal disease) Code(s): N18.6 - END STAGE RENAL DISEASE Problem List - Problems (1) C. difficile colitis Code(s): A04.72 - ENTEROCOLITIS D/T CLOSTRIDIUM DIFFICILE, NOT SPCF RECUR (2) Recurrent Clostridium difficile diarrhea Code(s): A04.71 - ENTEROCOLITIS DUE TO CLOSTRIDIUM DIFFICILE, RECURRENT
--- NOTE | 2018-05-17 12:09 | PN ---
Progress Note, Physician History of Present Illness: Pt seen and examined at bedside. He is awake and alert. He still has diarrhea. He is refusing HD today. - Current Medication List Current Medications: Active Medications Cholestyramine Resin (Questran Packet -) 4 gm PO BID [facility] Last Admin: 05/17/18 09:47 Dose: 4 gm Collagenase (Santyl -) 1 applic TP DAILY [facility]; Protocol Last Admin: 05/17/18 09:48 Dose: 1 applic Collagenase (Santyl -) 1 applic TP DAILY [facility]; Protocol Last Admin: 05/17/18 09:48 Dose: 1 applic Diphenhydramine HCl (Benadryl -) 25 mg PO Q8H PRN PRN Reason: itching Fludrocortisone Acetate (Florinef -) 0.1 mg PO DAILY [facility] Last Admin: 05/17/18 09:46 Dose: 0.1 mg Methylphenidate HCl (Ritalin -) 5 mg PO DAILY [facility] Last Admin: 05/17/18 09:47 Dose: 5 mg Metronidazole (Flagyl -) 500 mg PO TID [facility] Last Admin: 05/17/18 06:27 Dose: 500 mg Multi-Ingredient Lotion (Eucerin (Small Jar) -) 1 applic TP BID [facility] Last Admin: 05/17/18 09:46 Dose: Not Given Multivitamins/Minerals/Vitamin C (Tab-A-Vit -) 1 tab PO DAILY [facility] Last Admin: 05/17/18 09:48 Dose: 1 tab Tenofovir Disoproxil Fumarate (Viread -) 300 mg PO Bertrand@1000 [facility] Last Admin: 05/14/18 09:36 Dose: 300 mg - Objective Vital Signs: Vital Signs Temperature 99.2 F 05/17/18 09:45 Pulse Rate 88 05/17/18 09:45 Respiratory Rate 18 05/17/18 09:45 Blood Pressure 80/50 05/17/18 09:45 O2 Sat by Pulse Oximetry (%) 97 05/16/18 21:00 Constitutional: Yes: Calm Eyes: Yes: Conjunctiva Clear HENT: Yes: Atraumatic Neck: Yes: Supple Cardiovascular: Yes: S1, S2 Respiratory: Yes: CTA Bilaterally Gastrointestinal: Yes: Soft Genitourinary: Yes: Incontinence Edema: Yes Edema: LLE: Trace, RLE: Trace Neurological: Yes: Oriented Psychiatric: Yes: Oriented Labs: CBC, BMP 05/17/18 06:30 05/17/18 06:30 Problem List - Problems (1) Acute diarrhea Code(s): R19.7 - DIARRHEA, UNSPECIFIED (2) ESRD (end stage renal disease) Code(s): N18.6 - END STAGE RENAL DISEASE (3) Hypotension Code(s): I95.9 - HYPOTENSION, UNSPECIFIED Assessment/Plan Current Medications Generic Name Dose Route Start Last Admin Trade Name Freq PRN Reason Stop Dose Admin Cholestyramine Resin 4 gm 05/13/18 22:00 05/17/18 09:47 Questran Packet - PO 4 gm BID IRVIN Administration Collagenase 1 applic 05/13/18 10:00 05/17/18 09:48 Santyl - TP 1 applic DAILY [facility] Administration Protocol Collagenase 1 applic 05/13/18 10:00 05/17/18 09:48 Santyl - TP 1 applic DAILY [facility] Administration Protocol Diphenhydramine HCl 25 mg 05/12/18 23:22 Benadryl - PO Q8H PRN itching Fludrocortisone Acetate 0.1 mg 05/13/18 10:00 05/17/18 09:46 Florinef - PO 0.1 mg DAILY [facility] Administration Methylphenidate HCl 5 mg 05/13/18 10:00 05/17/18 09:47 Ritalin - PO 5 mg DAILY [facility] Administration Metronidazole 500 mg 05/13/18 22:00 05/17/18 06:27 Flagyl - PO 500 mg TID IRVIN Administration Multi-Ingredient Lotion 1 applic 05/13/18 10:00 05/17/18 09:46 Eucerin (Small Jar) - TP Not Given BID [facility] Multivitamins/Minerals/Vitamin C 1 tab 05/13/18 10:00 05/17/18 09:48 Tab-A-Vit - PO 1 tab DAILY [facility] Administration Tenofovir Disoproxil Fumarate 300 mg 05/14/18 10:00 05/14/18 09:36 Viread - PO 300 mg Bertrand@1000 IRVIN Administration Impression 1. ESRD 2. anemia 3. osteomyelitis 4. Hep B 5. diarrhea 6. depression 7. non-compliance with HD 8. acidisos - metabolic Plan - HD tomorrow - will replace potassium - monitor lytes, has ongoing losses from diarrhea - 3k bath on HD - repeat labs in am - pt still with diarrhea - will follow Dr Frey
[2018-05-17] MEDS ORDERED: SODIUM CHLORIDE 250 ML IV PRN (12:10)
[2018-05-17 15:22] VITALS: BMI 24.5
--- NOTE | 2018-05-17 18:57 | CONSULT ---
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 No: Sibley's Disease, Mario's Disease, Diabetes Insipidus, Hyperparathyroidism, Hyperthyroidism, Hypothyroidism, Osteopenia, SIADH, Other - Past Surgical History Past Surgical History: Yes: AV Fistula/Graft - Alcohol/Substance Use Hx Alcohol Use: No - Smoking History Smoking history: Never smoked Have you smoked in the past 12 months: No - Social History Usual Living Arrangement: With Significant Other Home Medications - Allergies Allergies/Adverse Reactions: Allergies Allergy/AdvReac Type Severity Reaction Status Date / Time levofloxacin [From Levaquin] Allergy Mild Rash Verified 05/13/18 00:18 meropenem Allergy Verified 05/13/18 00:18 vancomycin Allergy Verified 05/13/18 00:18 amino Allergy Intermediate Rash Uncoded 03/03/18 10:46 - Home Medications Home Medications: Ambulatory Orders Collagenase Clostridium Hist. [Santyl -] 1 applic TP DAILY tube 02/20/18 Tenofovir Disoproxil Fumarate 300 mg PO WEEKLY 03/24/18 Collagenase Clostridium Hist. [Santyl -] 1 applic TP DAILY 05/12/18 Diphenhydramine HCl [Benadryl Capsule -] 25 mg PO Q8H PRN 05/12/18 Fludrocortisone Acetate [Florinef -] 0.1 mg PO DAILY 05/12/18 Loperamide HCl [Imodium A-D] 2 mg PO TID 05/12/18 Methylphenidate HCl 5 mg PO DAILY 05/12/18 Mineral Oil/Petrolat,Wht/Water [Eucerin (Small Jar) -] 1 applic TP BID 05/12/18 Multivitamins [Multivit ([facility] Formul[facility])] 1 tab PO DAILY 05/12/18 metroNIDAZOLE [Flagyl -] 500 mg PO TID 05/12/18 Fidaxomicin [Dificid -] 200 mg PO BID #20 tablet 05/16/18 Physical Exam Vital Signs: Vital Signs Temperature 99 F 05/17/18 17:11 Pulse Rate 88 05/17/18 17:11 Respiratory Rate 20 05/17/18 17:11 Blood Pressure 100/38 05/17/18 17:11 O2 Sat by Pulse Oximetry (%) 97 05/16/18 21:00 Labs: CBC, BMP 05/17/18 06:30 05/17/18 06:30
--- NOTE | 2018-05-17 20:47 | CONSULT ---
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 No: Abel's Disease, Mario's Disease, Diabetes Insipidus, Hyperparathyroidism, Hyperthyroidism, Hypothyroidism, Osteopenia, SIADH, Other - Past Surgical History Past Surgical History: Yes: AV Fistula/Graft - Alcohol/Substance Use Hx Alcohol Use: No - Smoking History Smoking history: Never smoked Have you smoked in the past 12 months: No - Social History Usual Living Arrangement: With Significant Other Home Medications - Allergies Allergies/Adverse Reactions: Allergies Allergy/AdvReac Type Severity Reaction Status Date / Time levofloxacin [From Levaquin] Allergy Mild Rash Verified 05/13/18 00:18 meropenem Allergy Verified 05/13/18 00:18 vancomycin Allergy Verified 05/13/18 00:18 amino Allergy Intermediate Rash Uncoded 03/03/18 10:46 - Home Medications Home Medications: Ambulatory Orders Collagenase Clostridium Hist. [Santyl -] 1 applic TP DAILY tube 02/20/18 Tenofovir Disoproxil Fumarate 300 mg PO WEEKLY 03/24/18 Collagenase Clostridium Hist. [Santyl -] 1 applic TP DAILY 05/12/18 Diphenhydramine HCl [Benadryl Capsule -] 25 mg PO Q8H PRN 05/12/18 Fludrocortisone Acetate [Florinef -] 0.1 mg PO DAILY 05/12/18 Loperamide HCl [Imodium A-D] 2 mg PO TID 05/12/18 Methylphenidate HCl 5 mg PO DAILY 05/12/18 Mineral Oil/Petrolat,Wht/Water [Eucerin (Small Jar) -] 1 applic TP BID 05/12/18 Multivitamins [Multivit ([facility] Formulary)] 1 tab PO DAILY 05/12/18 metroNIDAZOLE [Flagyl -] 500 mg PO TID 05/12/18 Fidaxomicin [Dificid -] 200 mg PO BID #20 tablet 05/16/18 Physical Exam Vital Signs: Vital Signs Temperature 99 F 05/17/18 17:11 Pulse Rate 88 05/17/18 17:11 Respiratory Rate 20 05/17/18 17:11 Blood Pressure 100/38 05/17/18 17:11 O2 Sat by Pulse Oximetry (%) 97 05/16/18 21:00 Wound/Incision: Yes: Other (b/l heel wounds) Labs: CBC, BMP 05/17/18 06:30 05/17/18 06:30 Assessment/Plan chronic b/l heel wounds continue collagenase to b/l heels. vac discontinued by vascular. offloading as best as possible with pillows and or heel pads. follow up in wound care with Dr. Villalobos.
[2018-05-18 00:08] LABS: STOOL CHLORIDE 63 mmol/L (.); STOOL POTASSIUM 40 mmol/L (.); STOOL SODIUM 95 mmol/L (.)
[2018-05-18] MEDS: metroNIDAZOLE 250 MG TABLET PO SCH ×3 (06:07→21:37)
[2018-05-18] MEDS ORDERED: INSULIN (NOVOLOG) ASPART 100 UNITS/ML 10ML VIAL ONE (07:54)
--- NOTE | 2018-05-18 08:54 | PN ---
Progress Note, Physician History of Present Illness: stable still has dirrhoea patient says - Current Medication List Current Medications: Active Medications Albumin Human (Albumin Human 25%) 12.5 gm IVPB Q30M [facility] Cholestyramine Resin (Questran Packet -) 4 gm PO BID [facility] Last Admin: 05/17/18 23:00 Dose: Not Given Collagenase (Santyl -) 1 applic TP DAILY [facility]; Protocol Last Admin: 05/17/18 09:48 Dose: 1 applic Collagenase (Santyl -) 1 applic TP DAILY [facility]; Protocol Last Admin: 05/17/18 09:48 Dose: 1 applic Diphenhydramine HCl (Benadryl -) 25 mg PO Q8H PRN PRN Reason: itching Epoetin Arjun (Epogen -) 6,000 unit IVPUSH ONCE ONE Stop: 05/18/18 12:11 Fludrocortisone Acetate (Florinef -) 0.1 mg PO DAILY [facility] Last Admin: 05/17/18 09:46 Dose: 0.1 mg Sodium Chloride (Normal Saline -) 250 mls @ 3,000 mls/hr IV PRN PRN PRN Reason: Hypotension during Dialysis Stop: 05/18/18 12:10 Methylphenidate HCl (Ritalin -) 5 mg PO DAILY [facility] Last Admin: 05/17/18 09:47 Dose: 5 mg Metronidazole (Flagyl -) 500 mg PO TID [facility] Last Admin: 05/18/18 06:07 Dose: Not Given Multi-Ingredient Lotion (Eucerin (Small Jar) -) 1 applic TP BID [facility] Last Admin: 05/17/18 23:00 Dose: Not Given Multivitamins/Minerals/Vitamin C (Tab-A-Vit -) 1 tab PO DAILY [facility] Last Admin: 05/17/18 09:48 Dose: 1 tab Tenofovir Disoproxil Fumarate (Viread -) 300 mg PO Bertrand@1000 [facility] Last Admin: 05/14/18 09:36 Dose: 300 mg - Objective Vital Signs: Vital Signs Temperature 98.6 F 05/18/18 06:00 Pulse Rate 92 H 05/18/18 06:00 Respiratory Rate 20 05/18/18 06:00 Blood Pressure 106/58 05/18/18 06:00 O2 Sat by Pulse Oximetry (%) 97 05/16/18 21:00 Constitutional: Yes: No Distress, Calm Cardiovascular: Yes: Regular Rate and Rhythm Respiratory: Yes: Regular, CTA Bilaterally Gastrointestinal: Yes: Normal Bowel Sounds, Soft Musculoskeletal: Yes: Other Extremities: Yes: Other Wound/Incision: Yes: Dressing Dry and Intact Neurological: Yes: Alert, Oriented Psychiatric: Yes: Alert, Oriented Labs: CBC, BMP 05/17/18 06:30 05/17/18 06:30 Assessment/Plan Problem List - Problems (1) Chronic diarrhea Code(s): K52.9 - NONINFECTIVE GASTROENTERITIS AND COLITIS, UNSPECIFIED (2) Diabetic foot ulcer Code(s): E11.621 - TYPE 2 DIABETES MELLITUS WITH FOOT ULCER; L97.509 - NON- PRESSURE CHRONIC ULCER OTH PRT UNSP FOOT W UNSP SEVERITY Qualifiers: Diabetic foot ulcer location: heel Diabetes mellitus type: other specified (including JADON) Laterality: unspecified laterality Non-pressure ulcer stage : unspecified non-pressure ulcer stage Qualified Code(s): E13.621 - Other specified diabetes mellitus with foot ulcer; L97.409 - Non-pressure chronic ulcer of unspecified heel and midfoot with unspecified severity (3) ESRD (end stage renal disease) Code(s): N18.6 - END STAGE RENAL DISEASE (4) Generalized weakness Code(s): R53.1 - WEAKNESS (5) Osteomyelitis Code(s): M86.9 - OSTEOMYELITIS, UNSPECIFIED Qualifiers: Osteomyelitis type: unspecified type Osteomyelitis location: unspecified site Qualified Code(s): M86.9 - Osteomyelitis, unspecified Assessment/Plan 52 y.o. male with PMH of DM with chronic foot ulcers, Rt heel OM s/p debridement , ESRD on HD, Hepatitis B on Tenofovir presenting with c/o loose BMs post- eating and drinking, occasional abd cramping and weightloss for the past 2 months. He is s/p treatment for Rt heel OM completed about one month ago. Given 7 day course of treatment with Flagyl for C. difficile Colitis C. difficile colitis DM ESRD on HD s/p treatment for Rt heel OM Chronic Feet ulcers Hepatitis B on Tenofovir plan start fidoximicin 200 mg bid for 10 days dialysis rest as per the team patient stable
--- NOTE | 2018-05-18 10:17 | PN ---
Progress Note, Physician - Current Medication List Current Medications: Active Medications Albumin Human (Albumin Human 25%) 12.5 gm IVPB Q30M [facility] Cholestyramine Resin (Questran Packet -) 4 gm PO BID [facility] Last Admin: 05/17/18 23:00 Dose: Not Given Collagenase (Santyl -) 1 applic TP DAILY [facility]; Protocol Last Admin: 05/17/18 09:48 Dose: 1 applic Collagenase (Santyl -) 1 applic TP DAILY [facility]; Protocol Last Admin: 05/17/18 09:48 Dose: 1 applic Diphenhydramine HCl (Benadryl -) 25 mg PO Q8H PRN PRN Reason: itching Epoetin Arjun (Epogen -) 6,000 unit IVPUSH ONCE ONE Stop: 05/18/18 12:11 Fludrocortisone Acetate (Florinef -) 0.1 mg PO DAILY [facility] Last Admin: 05/17/18 09:46 Dose: 0.1 mg Sodium Chloride (Normal Saline -) 250 mls @ 3,000 mls/hr IV PRN PRN PRN Reason: Hypotension during Dialysis Stop: 05/18/18 12:10 Methylphenidate HCl (Ritalin -) 5 mg PO DAILY [facility] Last Admin: 05/17/18 09:47 Dose: 5 mg Metronidazole (Flagyl -) 500 mg PO TID [facility] Last Admin: 05/18/18 06:07 Dose: Not Given Multi-Ingredient Lotion (Eucerin (Small Jar) -) 1 applic TP BID [facility] Last Admin: 05/17/18 23:00 Dose: Not Given Multivitamins/Minerals/Vitamin C (Tab-A-Vit -) 1 tab PO DAILY [facility] Last Admin: 05/17/18 09:48 Dose: 1 tab Tenofovir Disoproxil Fumarate (Viread -) 300 mg PO Bertrand@1000 [facility] Last Admin: 05/14/18 09:36 Dose: 300 mg - Objective Vital Signs: Vital Signs Temperature 98.6 F 05/18/18 06:00 Pulse Rate 92 H 05/18/18 06:00 Respiratory Rate 20 05/18/18 06:00 Blood Pressure 106/58 05/18/18 06:00 O2 Sat by Pulse Oximetry (%) 97 05/16/18 21:00 Labs: CBC, BMP 05/17/18 06:30 05/17/18 06:30 Problem List - Problems (1) C. difficile colitis Code(s): A04.72 - ENTEROCOLITIS D/T CLOSTRIDIUM DIFFICILE, NOT SPCF RECUR (2) Recurrent Clostridium difficile diarrhea Code(s): A04.71 - ENTEROCOLITIS DUE TO CLOSTRIDIUM DIFFICILE, RECURRENT
--- NOTE | 2018-05-18 10:18 | PN ---
Progress Note (short form) - Note Progress Note: pt seen/ examined has mild abd pain refusing dialysis as it is late still having diarrhea afebrile Vital Signs - 24 hr 05/17/18 05/17/18 05/18/18 14:34 17:11 06:00 Temperature 98.4 F 99 F 98.6 F Pulse Rate 90 88 92 H Respiratory 20 20 Rate Blood Pressure 96/58 100/38 106/58 05/18/18 10:00 Temperature 98.6 F Pulse Rate 100 H Respiratory 20 Rate Blood Pressure 108/60 Current Medications Generic Name Dose Route Start Last Admin Trade Name Freq PRN Reason Stop Dose Admin Albumin Human 12.5 gm 05/18/18 12:15 Albumin Human 25% IVPB Q30M [facility] Cholestyramine Resin 4 gm 05/13/18 22:00 05/18/18 10:25 Questran Packet - PO 4 gm BID [facility] Administration Collagenase 1 applic 05/13/18 10:00 05/18/18 10:27 Santyl - TP 1 applic DAILY [facility] Administration Protocol Collagenase 1 applic 05/13/18 10:00 05/18/18 10:27 Santyl - TP 1 applic DAILY [facility] Administration Protocol Diphenhydramine HCl 25 mg 05/12/18 23:22 Benadryl - PO Q8H PRN itching Epoetin Arjun 6,000 unit 05/18/18 12:10 Epogen - IVPUSH 05/18/18 12:11 ONCE ONE Fludrocortisone Acetate 0.1 mg 05/13/18 10:00 05/18/18 10:25 Florinef - PO 0.1 mg DAILY [facility] Administration Sodium Chloride 250 mls @ 3,000 mls/hr 05/17/18 12:10 Normal Saline - IV 05/18/18 12:10 PRN PRN Hypotension during Dialysis Methylphenidate HCl 5 mg 05/13/18 10:00 05/18/18 10:26 Ritalin - PO 5 mg DAILY [facility] Administration Metronidazole 500 mg 05/13/18 22:00 05/18/18 06:07 Flagyl - PO Not Given TID [facility] Multi-Ingredient Lotion 1 applic 05/13/18 10:00 05/17/18 23:00 Eucerin (Small Jar) - TP Not Given BID [facility] Multivitamins/Minerals/Vitamin C 1 tab 05/13/18 10:00 05/18/18 10:27 Tab-A-Vit - PO 1 tab DAILY [facility] Administration Tenofovir Disoproxil Fumarate 300 mg 05/14/18 10:00 05/14/18 09:36 Viread - PO 300 mg Bertrand@1000 [facility] Administration Laboratory Results - last 24 hr 05/13/18 10:15 Stool Sodium 95 Stool Potassium 40 Stool Chloride 63 Physical Exam Constitutional: awake/ comfortable Eyes: Yes: Conjunctiva Clear HENT: Yes:wnl Neck: Yes: Supple/ no jvd Cardiovascular: No:rrr Respiratory: Yes: Clear Abd- Soft/ non tender . bs + Neurological: Yes: Alert, Oriented. Heel pads+ a/p c diif +ve esrd - hd sacral decubitus heel wounds hep B +ve continue present care c diff precautions BP better flagyl Start Fidaximicin- pt received it from his pharmacy will follow discussed with nursing staff also. Problem List - Problems (1) Sacral decubitus ulcer Code(s): L89.159 - PRESSURE ULCER OF SACRAL REGION, UNSPECIFIED STAGE (2) Chronic diarrhea Code(s): K52.9 - NONINFECTIVE GASTROENTERITIS AND COLITIS, UNSPECIFIED (3) Bilateral pressure ulcer of feet Code(s): L89.899 - PRESSURE ULCER OF OTHER SITE, UNSPECIFIED STAGE (4) ESRD (end stage renal disease) Code(s): N18.6 - END STAGE RENAL DISEASE Problem List - Problems (1) C. difficile colitis Code(s): A04.72 - ENTEROCOLITIS D/T CLOSTRIDIUM DIFFICILE, NOT SPCF RECUR (2) Recurrent Clostridium difficile diarrhea Code(s): A04.71 - ENTEROCOLITIS DUE TO CLOSTRIDIUM DIFFICILE, RECURRENT
[2018-05-18] MEDS: FLUDROCORTISONE ACETATE 0.1 MG TABLET (FP) PO SCH (10:25)
[2018-05-18] MEDS: CHOLESTYRAMINE/SUCROSE 4 GM PACKET PO SCH ×2 (10:25→21:39)
[2018-05-18] MEDS: METHYLPHENIDATE HCL 5 MG TABLET PO SCH (10:26)
[2018-05-18] MEDS: MULTIVITAMINS (DAILY MVI) TABLET (FP) PO SCH (10:27)
[2018-05-18] MEDS: COLLAGENASE CLOSTRIDIUM HIST. 30 GRAMS TUBE TP SCH ×2 (10:27)
[2018-05-18] MEDS ORDERED: PT OWN MED DRAWER 7, Y5N ONE ×3 (10:33→21:57)
[2018-05-18] MEDS: MINERAL OIL/PETROLAT/WATER TOPICAL CREAM 113 GM JAR TP SCH ×2 (10:45→21:47)
[2018-05-18] MEDS: FIDAXOMICIN 200 MG TABLET PO SCH ×2 (13:58→21:39)
--- NOTE | 2018-05-18 16:25 | PN ---
Progress Note, Physician History of Present Illness: Pt seen and examined at bedside. He is awake and alert. He refused HD today. He still has diarrhea. - Current Medication List Current Medications: Active Medications Albumin Human (Albumin Human 25%) 12.5 gm IVPB Q30M [facility] Cholestyramine Resin (Questran Packet -) 4 gm PO BID [facility] Last Admin: 05/18/18 10:25 Dose: 4 gm Collagenase (Santyl -) 1 applic TP DAILY [facility]; Protocol Last Admin: 05/18/18 10:27 Dose: 1 applic Collagenase (Santyl -) 1 applic TP DAILY [facility]; Protocol Last Admin: 05/18/18 10:27 Dose: 1 applic Diphenhydramine HCl (Benadryl -) 25 mg PO Q8H PRN PRN Reason: itching Epoetin Arjun (Epogen -) 6,000 unit IVPUSH ONCE ONE Stop: 05/18/18 12:11 Fidaxomicin (Dificid (Nf) -) 200 mg PO BID [facility] Stop: 05/27/18 22:01 Last Admin: 05/18/18 13:58 Dose: 200 mg Fludrocortisone Acetate (Florinef -) 0.1 mg PO DAILY [facility] Last Admin: 05/18/18 10:25 Dose: 0.1 mg Heparin Sodium (Porcine) (Heparin -) 5,000 unit SQ BID [facility] Sodium Chloride (Normal Saline -) 250 mls @ 3,000 mls/hr IV PRN PRN PRN Reason: Hypotension during Dialysis Stop: 05/18/18 12:10 Methylphenidate HCl (Ritalin -) 5 mg PO DAILY [facility] Last Admin: 05/18/18 10:26 Dose: 5 mg Metronidazole (Flagyl -) 500 mg PO TID [facility] Last Admin: 05/18/18 13:59 Dose: 500 mg Multi-Ingredient Lotion (Eucerin (Small Jar) -) 1 applic TP BID [facility] Last Admin: 05/18/18 10:45 Dose: Not Given Multivitamins/Minerals/Vitamin C (Tab-A-Vit -) 1 tab PO DAILY [facility] Last Admin: 05/18/18 10:27 Dose: 1 tab Tenofovir Disoproxil Fumarate (Viread -) 300 mg PO Bertrand@1000 [facility] Last Admin: 05/14/18 09:36 Dose: 300 mg - Objective Vital Signs: Vital Signs Temperature 98.6 F 05/18/18 15:26 Pulse Rate 78 05/18/18 15:26 Respiratory Rate 18 05/18/18 15:26 Blood Pressure 111/52 05/18/18 15:26 O2 Sat by Pulse Oximetry (%) 97 05/16/18 21:00 Constitutional: Yes: Calm Eyes: Yes: Conjunctiva Clear HENT: Yes: Atraumatic Cardiovascular: Yes: S1, S2 Respiratory: Yes: CTA Bilaterally Gastrointestinal: Yes: Normal Bowel Sounds, Soft Genitourinary: Yes: WNL Musculoskeletal: Yes: WNL Edema: Yes Edema: LLE: Trace, RLE: Trace Neurological: Yes: Oriented Psychiatric: Yes: Oriented Labs: CBC, BMP 05/17/18 06:30 05/17/18 06:30 Problem List - Problems (1) Acute diarrhea Code(s): R19.7 - DIARRHEA, UNSPECIFIED (2) ESRD (end stage renal disease) Code(s): N18.6 - END STAGE RENAL DISEASE (3) Hypotension Code(s): I95.9 - HYPOTENSION, UNSPECIFIED Assessment/Plan Current Medications Generic Name Dose Route Start Last Admin Trade Name Freq PRN Reason Stop Dose Admin Albumin Human 12.5 gm 05/18/18 12:15 Albumin Human 25% IVPB Q30M [facility] Cholestyramine Resin 4 gm 05/13/18 22:00 05/18/18 10:25 Questran Packet - PO 4 gm BID [facility] Administration Collagenase 1 applic 05/13/18 10:00 05/18/18 10:27 Santyl - TP 1 applic DAILY [facility] Administration Protocol Collagenase 1 applic 05/13/18 10:00 05/18/18 10:27 Santyl - TP 1 applic DAILY [facility] Administration Protocol Diphenhydramine HCl 25 mg 05/12/18 23:22 Benadryl - PO Q8H PRN itching Epoetin Arjun 6,000 unit 05/18/18 12:10 Epogen - IVPUSH 05/18/18 12:11 ONCE ONE Fidaxomicin 200 mg 05/18/18 11:30 05/18/18 13:58 Dificid (Nf) - PO 05/27/18 22:01 200 mg BID [facility] Administration Fludrocortisone Acetate 0.1 mg 05/13/18 10:00 05/18/18 10:25 Florinef - PO 0.1 mg DAILY [facility] Administration Heparin Sodium (Porcine) 5,000 unit 05/18/18 22:00 Heparin - SQ BID [facility] Sodium Chloride 250 mls @ 3,000 mls/hr 05/17/18 12:10 Normal Saline - IV 05/18/18 12:10 PRN PRN Hypotension during Dialysis Methylphenidate HCl 5 mg 05/13/18 10:00 05/18/18 10:26 Ritalin - PO 5 mg DAILY [facility] Administration Metronidazole 500 mg 05/13/18 22:00 05/18/18 13:59 Flagyl - PO 500 mg TID [facility] Administration Multi-Ingredient Lotion 1 applic 05/13/18 10:00 05/18/18 10:45 Eucerin (Small Jar) - TP Not Given BID [facility] Multivitamins/Minerals/Vitamin C 1 tab 05/13/18 10:00 05/18/18 10:27 Tab-A-Vit - PO 1 tab DAILY [facility] Administration Tenofovir Disoproxil Fumarate 300 mg 05/14/18 10:00 05/14/18 09:36 Viread - PO 300 mg Bertrand@1000 [facility] Administration Impression 1. ESRD 2. anemia 3. osteomyelitis 4. Hep B 5. diarrhea 6. depression 7. non-compliance with HD 8. acidisos - metabolic Plan - pt refused HD today - HD in am, he agrees - 3k bath on HD - repeat labs in am - pt still with diarrhea - will follow Dr Frey
[2018-05-18] MEDS: HEPARIN NA (PORCINE) 5,000 UNITS/ML 1ML VIAL SQ SCH ×2 (21:38→21:47)
--- NOTE | 2018-05-18 23:07 | PN ---
Progress Note (short form) - Note Progress Note: fuv b/l heels. still having abdominal issues. +granulating wounds b/l heels, abdominal pain granulating wounds continue dressing changes daily. will follow. offload b/l heels.
[2018-05-19] MEDS: metroNIDAZOLE 250 MG TABLET PO SCH ×3 (05:18→22:56)
--- NOTE | 2018-05-19 08:02 | PN ---
Progress Note, Physician History of Present Illness: no complaints still with dirrhoea - Current Medication List Current Medications: Active Medications Albumin Human (Albumin Human 25%) 12.5 gm IVPB Q30M [facility] Cholestyramine Resin (Questran Packet -) 4 gm PO BID [facility] Last Admin: 05/18/18 21:39 Dose: 4 gm Collagenase (Santyl -) 1 applic TP DAILY [facility]; Protocol Last Admin: 05/18/18 10:27 Dose: 1 applic Collagenase (Santyl -) 1 applic TP DAILY [facility]; Protocol Last Admin: 05/18/18 10:27 Dose: 1 applic Diphenhydramine HCl (Benadryl -) 25 mg PO Q8H PRN PRN Reason: itching Epoetin Arjun (Epogen -) 6,000 unit IVPUSH ONCE ONE Stop: 05/18/18 12:11 Fidaxomicin (Dificid (Nf) -) 200 mg PO BID [facility] Stop: 05/27/18 22:01 Last Admin: 05/18/18 21:39 Dose: 200 mg Fludrocortisone Acetate (Florinef -) 0.1 mg PO DAILY [facility] Last Admin: 05/18/18 10:25 Dose: 0.1 mg Heparin Sodium (Porcine) (Heparin -) 5,000 unit SQ BID [facility] Last Admin: 05/18/18 21:47 Dose: Not Given Sodium Chloride (Normal Saline -) 250 mls @ 3,000 mls/hr IV PRN PRN PRN Reason: Hypotension during Dialysis Stop: 05/18/18 12:10 Methylphenidate HCl (Ritalin -) 5 mg PO DAILY [facility] Last Admin: 05/18/18 10:26 Dose: 5 mg Metronidazole (Flagyl -) 500 mg PO TID [facility] Last Admin: 05/19/18 05:18 Dose: Not Given Multi-Ingredient Lotion (Eucerin (Small Jar) -) 1 applic TP BID [facility] Last Admin: 05/18/18 21:47 Dose: Not Given Multivitamins/Minerals/Vitamin C (Tab-A-Vit -) 1 tab PO DAILY [facility] Last Admin: 05/18/18 10:27 Dose: 1 tab Tenofovir Disoproxil Fumarate (Viread -) 300 mg PO Bertrand@1000 [facility] Last Admin: 05/14/18 09:36 Dose: 300 mg - Objective Vital Signs: Vital Signs Temperature 98.1 F 05/19/18 06:00 Pulse Rate 101 H 05/19/18 06:00 Respiratory Rate 20 05/19/18 06:00 Blood Pressure 118/60 05/19/18 06:00 O2 Sat by Pulse Oximetry (%) 97 05/16/18 21:00 Constitutional: Yes: No Distress, Calm Cardiovascular: Yes: Regular Rate and Rhythm Respiratory: Yes: Regular, CTA Bilaterally Gastrointestinal: Yes: Normal Bowel Sounds, Soft Musculoskeletal: Yes: Other Extremities: Yes: Other Neurological: Yes: Alert, Oriented Psychiatric: Yes: Alert, Oriented Labs: CBC, BMP 05/17/18 06:30 05/17/18 06:30 Assessment/Plan Problem List - Problems (1) Chronic diarrhea Code(s): K52.9 - NONINFECTIVE GASTROENTERITIS AND COLITIS, UNSPECIFIED (2) Diabetic foot ulcer Code(s): E11.621 - TYPE 2 DIABETES MELLITUS WITH FOOT ULCER; L97.509 - NON- PRESSURE CHRONIC ULCER OTH PRT UNSP FOOT W UNSP SEVERITY Qualifiers: Diabetic foot ulcer location: heel Diabetes mellitus type: other specified (including JADON) Laterality: unspecified laterality Non-pressure ulcer stage : unspecified non-pressure ulcer stage Qualified Code(s): E13.621 - Other specified diabetes mellitus with foot ulcer; L97.409 - Non-pressure chronic ulcer of unspecified heel and midfoot with unspecified severity (3) ESRD (end stage renal disease) Code(s): N18.6 - END STAGE RENAL DISEASE (4) Generalized weakness Code(s): R53.1 - WEAKNESS (5) Osteomyelitis Code(s): M86.9 - OSTEOMYELITIS, UNSPECIFIED Qualifiers: Osteomyelitis type: unspecified type Osteomyelitis location: unspecified site Qualified Code(s): M86.9 - Osteomyelitis, unspecified Assessment/Plan 52 y.o. male with PMH of DM with chronic foot ulcers, Rt heel OM s/p debridement , ESRD on HD, Hepatitis B on Tenofovir presenting with c/o loose BMs post- eating and drinking, occasional abd cramping and weightloss for the past 2 months. He is s/p treatment for Rt heel OM completed about one month ago. Given 7 day course of treatment with Flagyl for C. difficile Colitis C. difficile colitis DM ESRD on HD s/p treatment for Rt heel OM Chronic Feet ulcers Hepatitis B on Tenofovir plan start fidoximicin 200 mg bid for 10 days dialysis rest as per the team patient stable
[2018-05-19] MEDS ORDERED: EPOETIN ALFA 3,000 UNIT/1 ML ML IVPUSH ONE (08:45)
[2018-05-19] MEDS: ALBUMIN HUMAN 25% 12.5 GM/50 ML VIAL IVPB SCH ×4 (08:45→10:15)
[2018-05-19 09:08] LABS: HEMATOCRIT 30.4 % (35.4-49); MCH 30.9 pg (25.7-33.7); MCHC 32.8 g/dl (32.0-35.9); MEAN CELL VOLUME 94.2 fl (80-96); MEAN PLT VOLUME 9.5 fl (7.5-11.1); PLATELET COUNT 136 K/MM3 (134-434); RBC 3.22 M/mm3 (4.00-5.60); RDW 15.7 % (11.9-15.9); WHITE BLOOD COUNT 7.3 K/mm3 (4.0-10.0)
[2018-05-19 09:24] LABS: ALBUMIN 2.5 g/dl (3.4-5.0); ALK PHOS 65 U/L (45-117); ANION GAP 11 MMOL/L (8-16); BILIRUBIN,TOTAL 0.4 mg/dL (0.2-1); BLOOD UREA NITROGEN 40 mg/dL (7-18); CHLORIDE 115 mmol/L (98-107); CO2 16 mmol/L (21-32); GLUCOSE,RANDOM 98 mg/dL (74-106); MAGNESIUM 2.5 mg/dL (1.8-2.4); PHOSPHOROUS 3.7 mg/dL (2.5-4.9); POTASSIUM 3.3 mmol/L (3.5-5.1); SGOT/AST 4 U/L (15-37); SGPT/ALT < 6 U/L (13-61); SODIUM 143 mmol/L (136-145); TOT PROT 5.8 g/dl (6.4-8.2)
[2018-05-19 09:27] LABS: CREATININE 12.3 mg/dL (0.55-1.3)
--- NOTE | 2018-05-19 09:56 | PN ---
Progress Note (short form) - Note Progress Note: pt seen in dialysis chart reviewed comfortable diarrhea better afebrile Vital Signs Temp 98.1 F 05/19/18 06:00 Pulse 101 H 05/19/18 06:00 Resp 20 05/19/18 06:00 BP 118/60 05/19/18 06:00 Pulse Ox 97 05/16/18 21:00 Intake & Output 05/18/18 05/18/18 05/19/18 11:59 23:59 11:59 Intake Total 240 0 Balance 240 0 Intake: IV 0 Saline lock 0 Oral 240 Other: Voiding Method Incontinent Incontinent Bowel Movement Yes Yes # Bowel Movements 1 1 Active Medications Albumin Human (Albumin Human 25%) 12.5 gm IVPB Q30M [facility] Stop: 05/19/18 10:16 Cholestyramine Resin (Questran Packet -) 4 gm PO BID [facility] Last Admin: 05/18/18 21:39 Dose: 4 gm Collagenase (Santyl -) 1 applic TP DAILY [facility]; Protocol Last Admin: 05/18/18 10:27 Dose: 1 applic Collagenase (Santyl -) 1 applic TP DAILY [facility]; Protocol Last Admin: 05/18/18 10:27 Dose: 1 applic Diphenhydramine HCl (Benadryl -) 25 mg PO Q8H PRN PRN Reason: itching Fidaxomicin (Dificid (Nf) -) 200 mg PO BID [facility] Stop: 05/27/18 22:01 Last Admin: 05/18/18 21:39 Dose: 200 mg Fludrocortisone Acetate (Florinef -) 0.1 mg PO DAILY [facility] Last Admin: 05/18/18 10:25 Dose: 0.1 mg Heparin Sodium (Porcine) (Heparin -) 5,000 unit SQ BID [facility] Last Admin: 05/18/18 21:47 Dose: Not Given Methylphenidate HCl (Ritalin -) 5 mg PO DAILY [facility] Last Admin: 05/18/18 10:26 Dose: 5 mg Metronidazole (Flagyl -) 500 mg PO TID [facility] Last Admin: 05/19/18 05:18 Dose: Not Given Multi-Ingredient Lotion (Eucerin (Small Jar) -) 1 applic TP BID [facility] Last Admin: 05/18/18 21:47 Dose: Not Given Multivitamins/Minerals/Vitamin C (Tab-A-Vit -) 1 tab PO DAILY [facility] Last Admin: 05/18/18 10:27 Dose: 1 tab Tenofovir Disoproxil Fumarate (Viread -) 300 mg PO Bertrand@1000 [facility] Last Admin: 05/14/18 09:36 Dose: 300 mg CBC, BMP 05/19/18 08:00 05/19/18 08:00 Physical Exam Constitutional: awake/ comfortable Eyes: Yes: Conjunctiva Clear HENT: Yes:wnl Neck: Yes: Supple/ no jvd Cardiovascular: No:rrr Respiratory: Yes: Clear Abd- Soft/ non tender . bs + Neurological: Yes: Alert, Oriented. Heel pads+ a/p c diif +ve esrd - hd sacral decubitus heel wounds hep B +ve continue present care c diff precautions Dirrhea beter flagyl Fidaximicin dont want to go back to [facility] today d/c planning Anticipate d/c tomorrow if stable/ better will follow discussed with nursing staff also. Problem List - Problems (1) Sacral decubitus ulcer Code(s): L89.159 - PRESSURE ULCER OF SACRAL REGION, UNSPECIFIED STAGE (2) Chronic diarrhea Code(s): K52.9 - NONINFECTIVE GASTROENTERITIS AND COLITIS, UNSPECIFIED (3) Bilateral pressure ulcer of feet Code(s): L89.899 - PRESSURE ULCER OF OTHER SITE, UNSPECIFIED STAGE (4) ESRD (end stage renal disease) Code(s): N18.6 - END STAGE RENAL DISEASE
[2018-05-19] MEDS ORDERED: PT OWN MED DRAWER 7, Y5N ONE (12:27)
[2018-05-19] MEDS: MULTIVITAMINS (DAILY MVI) TABLET (FP) PO SCH (12:32)
[2018-05-19] MEDS: MINERAL OIL/PETROLAT/WATER TOPICAL CREAM 113 GM JAR TP SCH ×2 (12:33→22:56)
[2018-05-19] MEDS: HEPARIN NA (PORCINE) 5,000 UNITS/ML 1ML VIAL SQ SCH ×2 (12:33→22:56)
[2018-05-19] MEDS: FIDAXOMICIN 200 MG TABLET PO SCH ×2 (12:33→22:55)
[2018-05-19] MEDS: FLUDROCORTISONE ACETATE 0.1 MG TABLET (FP) PO SCH (12:33)
[2018-05-19] MEDS: COLLAGENASE CLOSTRIDIUM HIST. 30 GRAMS TUBE TP SCH ×2 (12:34→12:35)
[2018-05-19] MEDS: CHOLESTYRAMINE/SUCROSE 4 GM PACKET PO SCH ×2 (12:34→22:55)
[2018-05-19] MEDS: METHYLPHENIDATE HCL 5 MG TABLET PO SCH (12:34)
[2018-05-19] MEDS ORDERED: POTASSIUM CHLORIDE TABS 20 MEQ TABLET.ER (FP) PO ONE (16:14)
--- NOTE | 2018-05-19 16:14 | PN ---
Progress Note, Physician History of Present Illness: Pt seen and examined at bedside. He is awake and alert. He agreed to go to HD today. - Current Medication List Current Medications: Active Medications Cholestyramine Resin (Questran Packet -) 4 gm PO BID [facility] Last Admin: 05/19/18 12:34 Dose: 4 gm Collagenase (Santyl -) 1 applic TP DAILY [facility]; Protocol Last Admin: 05/19/18 12:34 Dose: 1 applic Collagenase (Santyl -) 1 applic TP DAILY [facility]; Protocol Last Admin: 05/19/18 12:35 Dose: Not Given Diphenhydramine HCl (Benadryl -) 25 mg PO Q8H PRN PRN Reason: itching Fidaxomicin (Dificid (Nf) -) 200 mg PO BID [facility] Stop: 05/27/18 22:01 Last Admin: 05/19/18 12:33 Dose: 200 mg Fludrocortisone Acetate (Florinef -) 0.1 mg PO DAILY [facility] Last Admin: 05/19/18 12:33 Dose: 0.1 mg Heparin Sodium (Porcine) (Heparin -) 5,000 unit SQ BID [facility] Last Admin: 05/19/18 12:33 Dose: Not Given Methylphenidate HCl (Ritalin -) 5 mg PO DAILY [facility] Last Admin: 05/19/18 12:34 Dose: 5 mg Metronidazole (Flagyl -) 500 mg PO TID [facility] Last Admin: 05/19/18 05:18 Dose: Not Given Multi-Ingredient Lotion (Eucerin (Small Jar) -) 1 applic TP BID [facility] Last Admin: 05/19/18 12:33 Dose: Not Given Multivitamins/Minerals/Vitamin C (Tab-A-Vit -) 1 tab PO DAILY [facility] Last Admin: 05/19/18 12:32 Dose: 1 tab Tenofovir Disoproxil Fumarate (Viread -) 300 mg PO Bertrand@1000 [facility] Last Admin: 05/14/18 09:36 Dose: 300 mg - Objective Vital Signs: Vital Signs Temperature 98.4 F 05/19/18 14:32 Pulse Rate 84 05/19/18 14:32 Respiratory Rate 16 05/19/18 14:32 Blood Pressure 123/78 05/19/18 14:32 O2 Sat by Pulse Oximetry (%) 97 05/16/18 21:00 Constitutional: Yes: Calm Eyes: Yes: Conjunctiva Clear HENT: Yes: Atraumatic Neck: Yes: Supple Cardiovascular: Yes: S1, S2 Respiratory: Yes: CTA Bilaterally Gastrointestinal: Yes: Normal Bowel Sounds, Soft Genitourinary: Yes: WNL Musculoskeletal: Yes: WNL Extremities: Yes: WNL Edema: Yes Edema: LLE: Trace, RLE: Trace Neurological: Yes: Oriented Psychiatric: Yes: Oriented Labs: CBC, BMP 05/19/18 08:00 05/19/18 08:00 Problem List - Problems (1) Acute diarrhea Code(s): R19.7 - DIARRHEA, UNSPECIFIED (2) ESRD (end stage renal disease) Code(s): N18.6 - END STAGE RENAL DISEASE (3) Hypotension Code(s): I95.9 - HYPOTENSION, UNSPECIFIED Assessment/Plan Current Medications Generic Name Dose Route Start Last Admin Trade Name Freq PRN Reason Stop Dose Admin Cholestyramine Resin 4 gm 05/13/18 22:00 05/19/18 12:34 Questran Packet - PO 4 gm BID [facility] Administration Collagenase 1 applic 05/13/18 10:00 05/19/18 12:34 Santyl - TP 1 applic DAILY [facility] Administration Protocol Collagenase 1 applic 05/13/18 10:00 05/19/18 12:35 Santyl - TP Not Given DAILY [facility] Protocol Diphenhydramine HCl 25 mg 05/12/18 23:22 Benadryl - PO Q8H PRN itching Fidaxomicin 200 mg 05/18/18 11:30 05/19/18 12:33 Dificid (Nf) - PO 05/27/18 22:01 200 mg BID [facility] Administration Fludrocortisone Acetate 0.1 mg 05/13/18 10:00 05/19/18 12:33 Florinef - PO 0.1 mg DAILY [facility] Administration Heparin Sodium (Porcine) 5,000 unit 05/18/18 22:00 05/19/18 12:33 Heparin - SQ Not Given BID [facility] Methylphenidate HCl 5 mg 05/13/18 10:00 05/19/18 12:34 Ritalin - PO 5 mg DAILY [facility] Administration Metronidazole 500 mg 05/13/18 22:00 05/19/18 05:18 Flagyl - PO Not Given TID [facility] Multi-Ingredient Lotion 1 applic 05/13/18 10:00 05/19/18 12:33 Eucerin (Small Jar) - TP Not Given BID [facility] Multivitamins/Minerals/Vitamin C 1 tab 05/13/18 10:00 05/19/18 12:32 Tab-A-Vit - PO 1 tab DAILY [facility] Administration Tenofovir Disoproxil Fumarate 300 mg 05/14/18 10:00 05/14/18 09:36 Viread - PO 300 mg Bertrand@1000 [facility] Administration Laboratory Tests 02/03/18 02/23/18 03/03/18 13:30 11:10 13:00 Hep Bs Antigen Negative Negative Confirm. indicated Hep Bs Antibody 05/15/18 09:30 Hep Bs Antigen Negative Hep Bs Antibody Reactive Impression 1. ESRD 2. anemia 3. osteomyelitis 4. Hep B 5. diarrhea 6. depression 7. non-compliance with HD 8. acidisos - metabolic Plan - HD today - 3k bath on HD - repeat labs in am - pt still with diarrhea - monitor lytes as he has ongoing losses - will give a small dose of potassium Dr Frey
[2018-05-20] MEDS: metroNIDAZOLE 250 MG TABLET PO SCH ×2 (05:08→14:03)
--- NOTE | 2018-05-20 09:21 | PN ---
Progress Note, Physician History of Present Illness: dirrhoea improving says he is feeling better now - Current Medication List Current Medications: Active Medications Cholestyramine Resin (Questran Packet -) 4 gm PO BID [facility] Last Admin: 05/19/18 22:55 Dose: 4 gm Collagenase (Santyl -) 1 applic TP DAILY [facility]; Protocol Last Admin: 05/19/18 12:34 Dose: 1 applic Collagenase (Santyl -) 1 applic TP DAILY [facility]; Protocol Last Admin: 05/19/18 12:35 Dose: Not Given Diphenhydramine HCl (Benadryl -) 25 mg PO Q8H PRN PRN Reason: itching Fidaxomicin (Dificid (Nf) -) 200 mg PO BID [facility] Stop: 05/27/18 22:01 Last Admin: 05/19/18 22:55 Dose: 200 mg Fludrocortisone Acetate (Florinef -) 0.1 mg PO DAILY [facility] Last Admin: 05/19/18 12:33 Dose: 0.1 mg Heparin Sodium (Porcine) (Heparin -) 5,000 unit SQ BID [facility] Last Admin: 05/19/18 22:56 Dose: Not Given Methylphenidate HCl (Ritalin -) 5 mg PO DAILY [facility] Last Admin: 05/19/18 12:34 Dose: 5 mg Metronidazole (Flagyl -) 500 mg PO TID [facility] Last Admin: 05/20/18 05:08 Dose: 500 mg Multi-Ingredient Lotion (Eucerin (Small Jar) -) 1 applic TP BID [facility] Last Admin: 05/19/18 22:56 Dose: Not Given Multivitamins/Minerals/Vitamin C (Tab-A-Vit -) 1 tab PO DAILY [facility] Last Admin: 05/19/18 12:32 Dose: 1 tab Tenofovir Disoproxil Fumarate (Viread -) 300 mg PO Bertrand@1000 [facility] Last Admin: 05/14/18 09:36 Dose: 300 mg - Objective Vital Signs: Vital Signs Temperature 98.5 F 05/20/18 06:31 Pulse Rate 98 H 05/20/18 06:31 Respiratory Rate 18 05/20/18 06:31 Blood Pressure 94/55 L 05/20/18 06:31 O2 Sat by Pulse Oximetry (%) 97 05/16/18 21:00 Constitutional: Yes: No Distress, Calm Cardiovascular: Yes: Regular Rate and Rhythm Respiratory: Yes: Regular, CTA Bilaterally Gastrointestinal: Yes: Normal Bowel Sounds, Soft Musculoskeletal: Yes: Other Extremities: Yes: Other Neurological: Yes: Alert, Oriented Psychiatric: Yes: Alert, Oriented Labs: CBC, BMP 05/19/18 08:00 05/19/18 08:00 Assessment/Plan Problem List - Problems (1) Chronic diarrhea Code(s): K52.9 - NONINFECTIVE GASTROENTERITIS AND COLITIS, UNSPECIFIED (2) Diabetic foot ulcer Code(s): E11.621 - TYPE 2 DIABETES MELLITUS WITH FOOT ULCER; L97.509 - NON- PRESSURE CHRONIC ULCER OTH PRT UNSP FOOT W UNSP SEVERITY Qualifiers: Diabetic foot ulcer location: heel Diabetes mellitus type: other specified (including JADON) Laterality: unspecified laterality Non-pressure ulcer stage : unspecified non-pressure ulcer stage Qualified Code(s): E13.621 - Other specified diabetes mellitus with foot ulcer; L97.409 - Non-pressure chronic ulcer of unspecified heel and midfoot with unspecified severity (3) ESRD (end stage renal disease) Code(s): N18.6 - END STAGE RENAL DISEASE (4) Generalized weakness Code(s): R53.1 - WEAKNESS (5) Osteomyelitis Code(s): M86.9 - OSTEOMYELITIS, UNSPECIFIED Qualifiers: Osteomyelitis type: unspecified type Osteomyelitis location: unspecified site Qualified Code(s): M86.9 - Osteomyelitis, unspecified Assessment/Plan 52 y.o. male with PMH of DM with chronic foot ulcers, Rt heel OM s/p debridement , ESRD on HD, Hepatitis B on Tenofovir presenting with c/o loose BMs post- eating and drinking, occasional abd cramping and weightloss for the past 2 months. He is s/p treatment for Rt heel OM completed about one month ago. Given 7 day course of treatment with Flagyl for C. difficile Colitis C. difficile colitis DM ESRD on HD s/p treatment for Rt heel OM Chronic Feet ulcers Hepatitis B on Tenofovir plan start fidoximicin 200 mg bid for 10 days dialysis rest as per the team patient stable
[2018-05-20] MEDS: MINERAL OIL/PETROLAT/WATER TOPICAL CREAM 113 GM JAR TP SCH ×3 (09:59→21:28)
[2018-05-20] MEDS: HEPARIN NA (PORCINE) 5,000 UNITS/ML 1ML VIAL SQ SCH ×2 (10:13→21:30)
[2018-05-20] MEDS: MULTIVITAMINS (DAILY MVI) TABLET (FP) PO SCH (10:13)
[2018-05-20] MEDS: FIDAXOMICIN 200 MG TABLET PO SCH ×2 (10:14→21:27)
[2018-05-20] MEDS: CHOLESTYRAMINE/SUCROSE 4 GM PACKET PO SCH ×2 (10:15→21:30)
[2018-05-20] MEDS: FLUDROCORTISONE ACETATE 0.1 MG TABLET (FP) PO SCH (10:15)
[2018-05-20] MEDS: COLLAGENASE CLOSTRIDIUM HIST. 30 GRAMS TUBE TP SCH ×2 (10:16→10:17)
[2018-05-20] MEDS: METHYLPHENIDATE HCL 5 MG TABLET PO SCH (10:16)
--- NOTE | 2018-05-20 23:04 | PN ---
Progress Note (short form) - Note Progress Note: pt seen/ examined has mild abd pain refusing dialysis as it is late still having diarrhea afebrile Vital Signs - 24 hr 05/20/18 05/20/18 05/20/18 06:31 09:00 10:00 Temperature 98.5 F 98.9 F Pulse Rate 98 H 88 Respiratory 18 16 16 Rate Blood Pressure 94/55 L 120/80 O2 Sat by Pulse 98 Oximetry (%) 05/20/18 05/20/18 05/20/18 14:00 17:45 21:00 Temperature 99.1 F 98.8 F Pulse Rate 85 Respiratory 20 20 Rate Blood Pressure 112/68 95/56 L O2 Sat by Pulse 98 Oximetry (%) Current Medications Generic Name Dose Route Start Last Admin Trade Name Freq PRN Reason Stop Dose Admin Cholestyramine Resin 4 gm 05/13/18 22:00 05/20/18 21:30 Questran Packet - PO Not Given BID [facility] Collagenase 1 applic 05/13/18 10:00 05/20/18 10:16 Santyl - TP 1 applic DAILY [facility] Administration Protocol Diphenhydramine HCl 25 mg 05/12/18 23:22 Benadryl - PO Q8H PRN itching Fidaxomicin 200 mg 05/18/18 11:30 05/20/18 21:27 Dificid (Nf) - PO 05/27/18 22:01 200 mg BID [facility] Administration Fludrocortisone Acetate 0.1 mg 05/13/18 10:00 05/20/18 10:15 Florinef - PO 0.1 mg DAILY [facility] Administration Heparin Sodium (Porcine) 5,000 unit 05/18/18 22:00 05/20/18 21:30 Heparin - SQ Not Given BID [facility] Methylphenidate HCl 5 mg 05/13/18 10:00 05/20/18 10:16 Ritalin - PO 5 mg DAILY [facility] Administration Multi-Ingredient Lotion 1 applic 05/13/18 10:00 05/20/18 21:28 Eucerin (Small Jar) - TP Not Given BID [facility] Multivitamins/Minerals/Vitamin C 1 tab 05/13/18 10:00 05/20/18 10:13 Tab-A-Vit - PO 1 tab DAILY [facility] Administration Tenofovir Disoproxil Fumarate 300 mg 05/14/18 10:00 05/14/18 09:36 Viread - PO 300 mg Bertrand@1000 [facility] Administration Physical Exam Constitutional: awake/ comfortable Eyes: Yes: Conjunctiva Clear HENT: Yes:wnl Neck: Yes: Supple/ no jvd Cardiovascular: No:rrr Respiratory: Yes: Clear Abd- Soft/ non tender . bs + Neurological: Yes: Alert, Oriented. Heel pads+ a/p c diif +ve esrd - hd sacral decubitus heel wounds hep B +ve continue present care c diff precautions BP better flagyl Start Fidaximicin- pt received it from his pharmacy will follow discussed with nursing staff also. Problem List - Problems (1) Sacral decubitus ulcer Code(s): L89.159 - PRESSURE ULCER OF SACRAL REGION, UNSPECIFIED STAGE (2) Chronic diarrhea Code(s): K52.9 - NONINFECTIVE GASTROENTERITIS AND COLITIS, UNSPECIFIED (3) Bilateral pressure ulcer of feet Code(s): L89.899 - PRESSURE ULCER OF OTHER SITE, UNSPECIFIED STAGE (4) ESRD (end stage renal disease) Code(s): N18.6 - END STAGE RENAL DISEASE Problem List - Problems (1) C. difficile colitis Code(s): A04.72 - ENTEROCOLITIS D/T CLOSTRIDIUM DIFFICILE, NOT SPCF RECUR (2) Recurrent Clostridium difficile diarrhea Code(s): A04.71 - ENTEROCOLITIS DUE TO CLOSTRIDIUM DIFFICILE, RECURRENT
[2018-05-21] MEDS: HEPARIN NA (PORCINE) 5,000 UNITS/ML 1ML VIAL SQ SCH ×2 (10:44→21:06)
[2018-05-21] MEDS: MINERAL OIL/PETROLAT/WATER TOPICAL CREAM 113 GM JAR TP SCH ×2 (10:44→21:06)
[2018-05-21] MEDS: CHOLESTYRAMINE/SUCROSE 4 GM PACKET PO SCH ×2 (10:45→21:06)
[2018-05-21] MEDS: MULTIVITAMINS (DAILY MVI) TABLET (FP) PO SCH (10:51)
[2018-05-21] MEDS: FIDAXOMICIN 200 MG TABLET PO SCH ×2 (10:51→21:06)
[2018-05-21] MEDS: FLUDROCORTISONE ACETATE 0.1 MG TABLET (FP) PO SCH (10:52)
[2018-05-21] MEDS: METHYLPHENIDATE HCL 5 MG TABLET PO SCH (10:52)
[2018-05-21] MEDS: TENOFOVIR DISOPROXIL FUMARATE 300 MG TABLET PO SCH (10:52)
[2018-05-21] MEDS: COLLAGENASE CLOSTRIDIUM HIST. 30 GRAMS TUBE TP SCH (10:53)
[2018-05-21] MEDS ORDERED: PT OWN MED DRAWER 7, Y5N ONE (11:00)
--- NOTE | 2018-05-21 11:00 | PN ---
Progress Note, Physician - Current Medication List Current Medications: Active Medications Cholestyramine Resin (Questran Packet -) 4 gm PO BID [facility] Last Admin: 05/21/18 10:45 Dose: Not Given Collagenase (Santyl -) 1 applic TP DAILY [facility]; Protocol Last Admin: 05/21/18 10:53 Dose: 1 applic Diphenhydramine HCl (Benadryl -) 25 mg PO Q8H PRN PRN Reason: itching Fidaxomicin (Dificid (Nf) -) 200 mg PO BID [facility] Stop: 05/27/18 22:01 Last Admin: 05/21/18 10:51 Dose: 200 mg Fludrocortisone Acetate (Florinef -) 0.1 mg PO DAILY [facility] Last Admin: 05/21/18 10:52 Dose: 0.1 mg Heparin Sodium (Porcine) (Heparin -) 5,000 unit SQ BID [facility] Last Admin: 05/21/18 10:44 Dose: Not Given Methylphenidate HCl (Ritalin -) 5 mg PO DAILY [facility] Last Admin: 05/21/18 10:52 Dose: 5 mg Multi-Ingredient Lotion (Eucerin (Small Jar) -) 1 applic TP BID [facility] Last Admin: 05/21/18 10:44 Dose: Not Given Multivitamins/Minerals/Vitamin C (Tab-A-Vit -) 1 tab PO DAILY [facility] Last Admin: 05/21/18 10:51 Dose: 1 tab Tenofovir Disoproxil Fumarate (Viread -) 300 mg PO Bertrand@1000 [facility] Last Admin: 05/21/18 10:52 Dose: 300 mg - Objective Vital Signs: Vital Signs Temperature 98.7 F 05/21/18 06:44 Pulse Rate 94 H 05/21/18 06:44 Respiratory Rate 18 05/21/18 06:44 Blood Pressure 95/59 L 05/21/18 06:54 O2 Sat by Pulse Oximetry (%) 98 05/20/18 21:00 Labs: CBC, BMP 05/19/18 08:00 05/19/18 08:00
--- NOTE | 2018-05-21 11:00 | PN ---
Progress Note, Physician History of Present Illness: stable dirrhoea better - Current Medication List Current Medications: Active Medications Cholestyramine Resin (Questran Packet -) 4 gm PO BID [facility] Last Admin: 05/21/18 10:45 Dose: Not Given Collagenase (Santyl -) 1 applic TP DAILY [facility]; Protocol Last Admin: 05/21/18 10:53 Dose: 1 applic Diphenhydramine HCl (Benadryl -) 25 mg PO Q8H PRN PRN Reason: itching Fidaxomicin (Dificid (Nf) -) 200 mg PO BID [facility] Stop: 05/27/18 22:01 Last Admin: 05/21/18 10:51 Dose: 200 mg Fludrocortisone Acetate (Florinef -) 0.1 mg PO DAILY [facility] Last Admin: 05/21/18 10:52 Dose: 0.1 mg Heparin Sodium (Porcine) (Heparin -) 5,000 unit SQ BID [facility] Last Admin: 05/21/18 10:44 Dose: Not Given Methylphenidate HCl (Ritalin -) 5 mg PO DAILY [facility] Last Admin: 05/21/18 10:52 Dose: 5 mg Multi-Ingredient Lotion (Eucerin (Small Jar) -) 1 applic TP BID [facility] Last Admin: 05/21/18 10:44 Dose: Not Given Multivitamins/Minerals/Vitamin C (Tab-A-Vit -) 1 tab PO DAILY [facility] Last Admin: 05/21/18 10:51 Dose: 1 tab Tenofovir Disoproxil Fumarate (Viread -) 300 mg PO Bertrand@1000 [facility] Last Admin: 05/21/18 10:52 Dose: 300 mg - Objective Vital Signs: Vital Signs Temperature 98.7 F 05/21/18 06:44 Pulse Rate 94 H 05/21/18 06:44 Respiratory Rate 18 05/21/18 06:44 Blood Pressure 95/59 L 05/21/18 06:54 O2 Sat by Pulse Oximetry (%) 98 05/20/18 21:00 Constitutional: Yes: No Distress, Calm Cardiovascular: Yes: Regular Rate and Rhythm Respiratory: Yes: Regular, CTA Bilaterally Gastrointestinal: Yes: Normal Bowel Sounds, Soft Musculoskeletal: Yes: WNL Extremities: Yes: Other Wound/Incision: Yes: Dressing Dry and Intact Neurological: Yes: Alert, Oriented Psychiatric: Yes: Alert, Oriented Labs: CBC, BMP 05/19/18 08:00 05/19/18 08:00 Assessment/Plan Problem List - Problems (1) Chronic diarrhea Code(s): K52.9 - NONINFECTIVE GASTROENTERITIS AND COLITIS, UNSPECIFIED (2) Diabetic foot ulcer Code(s): E11.621 - TYPE 2 DIABETES MELLITUS WITH FOOT ULCER; L97.509 - NON- PRESSURE CHRONIC ULCER OTH PRT UNSP FOOT W UNSP SEVERITY Qualifiers: Diabetic foot ulcer location: heel Diabetes mellitus type: other specified (including JADON) Laterality: unspecified laterality Non-pressure ulcer stage : unspecified non-pressure ulcer stage Qualified Code(s): E13.621 - Other specified diabetes mellitus with foot ulcer; L97.409 - Non-pressure chronic ulcer of unspecified heel and midfoot with unspecified severity (3) ESRD (end stage renal disease) Code(s): N18.6 - END STAGE RENAL DISEASE (4) Generalized weakness Code(s): R53.1 - WEAKNESS (5) Osteomyelitis Code(s): M86.9 - OSTEOMYELITIS, UNSPECIFIED Qualifiers: Osteomyelitis type: unspecified type Osteomyelitis location: unspecified site Qualified Code(s): M86.9 - Osteomyelitis, unspecified Assessment/Plan 52 y.o. male with PMH of DM with chronic foot ulcers, Rt heel OM s/p debridement , ESRD on HD, Hepatitis B on Tenofovir presenting with c/o loose BMs post- eating and drinking, occasional abd cramping and weightloss for the past 2 months. He is s/p treatment for Rt heel OM completed about one month ago. Given 7 day course of treatment with Flagyl for C. difficile Colitis C. difficile colitis DM ESRD on HD s/p treatment for Rt heel OM Chronic Feet ulcers Hepatitis B on Tenofovir plan complete the course dialysis rest as per the team patient stable
--- NOTE | 2018-05-21 12:15 | PN ---
Progress Note (short form) - Note Progress Note: pt seen/ examined better on Fidoximicin stools are less frequent afebrile Current Medications Generic Name Dose Route Start Last Admin Trade Name Jessica PRN Reason Stop Dose Admin Cholestyramine Resin 4 gm 05/13/18 22:00 05/20/18 21:30 Questran Packet - PO Not Given BID [facility] Collagenase 1 applic 05/13/18 10:00 05/20/18 10:16 Santyl - TP 1 applic DAILY [facility] Administration Protocol Diphenhydramine HCl 25 mg 05/12/18 23:22 Benadryl - PO Q8H PRN itching Fidaxomicin 200 mg 05/18/18 11:30 05/20/18 21:27 Dificid (Nf) - PO 05/27/18 22:01 200 mg BID [facility] Administration Fludrocortisone Acetate 0.1 mg 05/13/18 10:00 05/20/18 10:15 Florinef - PO 0.1 mg DAILY [facility] Administration Heparin Sodium (Porcine) 5,000 unit 05/18/18 22:00 05/20/18 21:30 Heparin - SQ Not Given BID [facility] Methylphenidate HCl 5 mg 05/13/18 10:00 05/20/18 10:16 Ritalin - PO 5 mg DAILY [facility] Administration Multi-Ingredient Lotion 1 applic 05/13/18 10:00 05/20/18 21:28 Eucerin (Small Jar) - TP Not Given BID [facility] Multivitamins/Minerals/Vitamin C 1 tab 05/13/18 10:00 05/20/18 10:13 Tab-A-Vit - PO 1 tab DAILY [facility] Administration Tenofovir Disoproxil Fumarate 300 mg 05/14/18 10:00 05/14/18 09:36 Viread - PO 300 mg Bertrand@1000 [facility] Administration Physical Exam Constitutional: awake/ comfortable Eyes: Yes: Conjunctiva Clear HENT: Yes:wnl Neck: Yes: Supple/ no jvd Cardiovascular: No:rrr Respiratory: Yes: Clear Abd- Soft/ non tender . bs + Neurological: Yes: Alert, Oriented. Heel pads+ a/p c diif +ve esrd - hd sacral decubitus heel wounds hep B +ve continue present care c diff precautions BP better on Fidaximicin- pt received it from his pharmacy will follow discussed with nursing staff also. dc planning Problem List - Problems (1) Sacral decubitus ulcer Code(s): L89.159 - PRESSURE ULCER OF SACRAL REGION, UNSPECIFIED STAGE (2) Chronic diarrhea Code(s): K52.9 - NONINFECTIVE GASTROENTERITIS AND COLITIS, UNSPECIFIED (3) Bilateral pressure ulcer of feet Code(s): L89.899 - PRESSURE ULCER OF OTHER SITE, UNSPECIFIED STAGE (4) ESRD (end stage renal disease) Code(s): N18.6 - END STAGE RENAL DISEASE Problem List - Problems (1) C. difficile colitis Code(s): A04.72 - ENTEROCOLITIS D/T CLOSTRIDIUM DIFFICILE, NOT SPCF RECUR (2) Recurrent Clostridium difficile diarrhea Code(s): A04.71 - ENTEROCOLITIS DUE TO CLOSTRIDIUM DIFFICILE, RECURRENT
[2018-05-22 08:28] LABS: HEMATOCRIT 30.9 % (35.4-49); HEMOGLOBIN 10.3 GM/dL (11.7-16.9); MCH 31.7 pg (25.7-33.7); MCHC 33.5 g/dl (32.0-35.9); MEAN CELL VOLUME 94.5 fl (80-96); PLATELET COUNT 149 K/MM3 (134-434); RBC 3.27 M/mm3 (4.00-5.60); RDW 15.7 % (11.9-15.9); WHITE BLOOD COUNT 7.6 K/mm3 (4.0-10.0)
[2018-05-22] MEDS ORDERED: EPOETIN ALFA 3,000 UNIT/1 ML ML IVPUSH ONE (08:45)
[2018-05-22 09:23] LABS: ANION GAP 12 MMOL/L (8-16); BLOOD UREA NITROGEN 32 mg/dL (7-18); CALCIUM 7.8 mg/dL (8.5-10.1); CHLORIDE 111 mmol/L (98-107); CO2 19 mmol/L (21-32); GLUCOSE,RANDOM 96 mg/dL (74-106); SODIUM 141 mmol/L (136-145)
[2018-05-22 09:34] LABS: CREATININE 9.5 mg/dL (0.55-1.3)
--- NOTE | 2018-05-22 11:00 | PN ---
Progress Note, Physician History of Present Illness: no new issues improving - Current Medication List Current Medications: Active Medications Cholestyramine Resin (Questran Packet -) 4 gm PO BID [facility] Last Admin: 05/21/18 21:06 Dose: Not Given Collagenase (Santyl -) 1 applic TP DAILY [facility]; Protocol Last Admin: 05/21/18 10:53 Dose: 1 applic Diphenhydramine HCl (Benadryl -) 25 mg PO Q8H PRN PRN Reason: itching Fidaxomicin (Dificid (Nf) -) 200 mg PO BID [facility] Stop: 05/27/18 22:01 Last Admin: 05/21/18 21:06 Dose: 200 mg Fludrocortisone Acetate (Florinef -) 0.1 mg PO DAILY [facility] Last Admin: 05/21/18 10:52 Dose: 0.1 mg Heparin Sodium (Porcine) (Heparin -) 5,000 unit SQ BID [facility] Last Admin: 05/21/18 21:06 Dose: Not Given Methylphenidate HCl (Ritalin -) 5 mg PO DAILY [facility] Last Admin: 05/21/18 10:52 Dose: 5 mg Multi-Ingredient Lotion (Eucerin (Small Jar) -) 1 applic TP BID [facility] Last Admin: 05/21/18 21:06 Dose: Not Given Multivitamins/Minerals/Vitamin C (Tab-A-Vit -) 1 tab PO DAILY [facility] Last Admin: 05/21/18 10:51 Dose: 1 tab Tenofovir Disoproxil Fumarate (Viread -) 300 mg PO Bertrand@1000 [facility] Last Admin: 05/21/18 10:52 Dose: 300 mg - Objective Vital Signs: Vital Signs Temperature 98.4 F 05/22/18 07:40 Pulse Rate 91 H 05/22/18 10:15 Respiratory Rate 18 05/22/18 10:15 Blood Pressure 91/49 L 05/22/18 10:15 O2 Sat by Pulse Oximetry (%) 98 05/21/18 21:00 Constitutional: Yes: No Distress, Calm Cardiovascular: Yes: Regular Rate and Rhythm Respiratory: Yes: Regular, CTA Bilaterally Gastrointestinal: Yes: Normal Bowel Sounds, Soft Musculoskeletal: Yes: WNL Extremities: Yes: Other Neurological: Yes: Alert, Oriented Psychiatric: Yes: Alert, Oriented Labs: CBC, BMP 05/22/18 07:45 05/22/18 07:45 Assessment/Plan Problem List - Problems (1) Chronic diarrhea Code(s): K52.9 - NONINFECTIVE GASTROENTERITIS AND COLITIS, UNSPECIFIED (2) Diabetic foot ulcer Code(s): E11.621 - TYPE 2 DIABETES MELLITUS WITH FOOT ULCER; L97.509 - NON- PRESSURE CHRONIC ULCER OTH PRT UNSP FOOT W UNSP SEVERITY Qualifiers: Diabetic foot ulcer location: heel Diabetes mellitus type: other specified (including JADON) Laterality: unspecified laterality Non-pressure ulcer stage : unspecified non-pressure ulcer stage Qualified Code(s): E13.621 - Other specified diabetes mellitus with foot ulcer; L97.409 - Non-pressure chronic ulcer of unspecified heel and midfoot with unspecified severity (3) ESRD (end stage renal disease) Code(s): N18.6 - END STAGE RENAL DISEASE (4) Generalized weakness Code(s): R53.1 - WEAKNESS (5) Osteomyelitis Code(s): M86.9 - OSTEOMYELITIS, UNSPECIFIED Qualifiers: Osteomyelitis type: unspecified type Osteomyelitis location: unspecified site Qualified Code(s): M86.9 - Osteomyelitis, unspecified Assessment/Plan 52 y.o. male with PMH of DM with chronic foot ulcers, Rt heel OM s/p debridement , ESRD on HD, Hepatitis B on Tenofovir presenting with c/o loose BMs post- eating and drinking, occasional abd cramping and weightloss for the past 2 months. He is s/p treatment for Rt heel OM completed about one month ago. Given 7 day course of treatment with Flagyl for C. difficile Colitis C. difficile colitis DM ESRD on HD s/p treatment for Rt heel OM Chronic Feet ulcers Hepatitis B on Tenofovir plan complete the course dialysis rest as per the team patient stable
[2018-05-22] MEDS ORDERED: PT OWN MED DRAWER 7, Y5N ONE ×2 (11:28→22:55)
--- NOTE | 2018-05-22 11:31 | PN ---
Progress Note (short form) - Note Progress Note: pt seen/ examined had dialysis today pt reports/ nurse also reports having still diarrhea denies pain afebrile looks comfortable Vital Signs Temp 98.4 F 05/22/18 07:40 Pulse 81 05/22/18 10:50 Resp 18 05/22/18 10:50 BP 91/50 L 05/22/18 10:50 Pulse Ox 98 05/21/18 21:00 Intake & Output 05/21/18 05/21/18 05/22/18 11:59 23:59 11:59 Intake Total 400 Balance 400 Intake: Oral 400 Other: Voiding Method Urinal Urinal Incontinent # Unmeasured Voids Void 0 0 0 Bowel Movement Yes: loose,soft med lr Yes Yes # Bowel Movements 2 2 4 Active Medications Cholestyramine Resin (Questran Packet -) 4 gm PO BID [facility] Last Admin: 05/21/18 21:06 Dose: Not Given Collagenase (Santyl -) 1 applic TP DAILY [facility]; Protocol Last Admin: 05/21/18 10:53 Dose: 1 applic Diphenhydramine HCl (Benadryl -) 25 mg PO Q8H PRN PRN Reason: itching Fidaxomicin (Dificid (Nf) -) 200 mg PO BID [facility] Stop: 05/27/18 22:01 Last Admin: 05/21/18 21:06 Dose: 200 mg Fludrocortisone Acetate (Florinef -) 0.1 mg PO DAILY [facility] Last Admin: 05/21/18 10:52 Dose: 0.1 mg Heparin Sodium (Porcine) (Heparin -) 5,000 unit SQ BID [facility] Last Admin: 05/21/18 21:06 Dose: Not Given Methylphenidate HCl (Ritalin -) 5 mg PO DAILY [facility] Last Admin: 05/21/18 10:52 Dose: 5 mg Multi-Ingredient Lotion (Eucerin (Small Jar) -) 1 applic TP BID [facility] Last Admin: 05/21/18 21:06 Dose: Not Given Multivitamins/Minerals/Vitamin C (Tab-A-Vit -) 1 tab PO DAILY [facility] Last Admin: 05/21/18 10:51 Dose: 1 tab Tenofovir Disoproxil Fumarate (Viread -) 300 mg PO Bertrand@1000 [facility] Last Admin: 05/21/18 10:52 Dose: 300 mg CBC, BMP 05/22/18 07:45 05/22/18 07:45 Physical Exam Constitutional: awake/ comfortable Eyes: Yes: Conjunctiva Clear HENT: Yes:wnl Neck: Yes: Supple/ no jvd Cardiovascular: No:rrr Respiratory: Yes: Clear Abd- Soft/ non tender . bs +. no r/r Neurological: Yes: Alert, Oriented. Heel pads+ a/p c diif +ve esrd - hd sacral decubitus heel wounds hep B +ve continue present care c diff precautions Dirrhea-- still persists dont want to go back to longterm today d/c planning Anticipate d/c tomorrow if stable/ better will follow discussed with nursing staff also. Problem List - Problems (1) Sacral decubitus ulcer Code(s): L89.159 - PRESSURE ULCER OF SACRAL REGION, UNSPECIFIED STAGE (2) Chronic diarrhea Code(s): K52.9 - NONINFECTIVE GASTROENTERITIS AND COLITIS, UNSPECIFIED (3) Bilateral pressure ulcer of feet Code(s): L89.899 - PRESSURE ULCER OF OTHER SITE, UNSPECIFIED STAGE (4) ESRD (end stage renal disease) Code(s): N18.6 - END STAGE RENAL DISEASE
[2018-05-22] MEDS: FIDAXOMICIN 200 MG TABLET PO SCH ×2 (11:35→22:57)
[2018-05-22] MEDS: MULTIVITAMINS (DAILY MVI) TABLET (FP) PO SCH (11:35)
[2018-05-22] MEDS: MINERAL OIL/PETROLAT/WATER TOPICAL CREAM 113 GM JAR TP SCH ×2 (11:36→22:58)
[2018-05-22] MEDS: FLUDROCORTISONE ACETATE 0.1 MG TABLET (FP) PO SCH (11:37)
[2018-05-22] MEDS: HEPARIN NA (PORCINE) 5,000 UNITS/ML 1ML VIAL SQ SCH ×2 (11:38→22:58)
[2018-05-22] MEDS: METHYLPHENIDATE HCL 5 MG TABLET PO SCH (11:39)
[2018-05-22] MEDS: CHOLESTYRAMINE/SUCROSE 4 GM PACKET PO SCH ×2 (11:39→22:57)
[2018-05-22] MEDS: COLLAGENASE CLOSTRIDIUM HIST. 30 GRAMS TUBE TP SCH (11:40)
--- NOTE | 2018-05-22 15:12 | PN ---
Progress Note, Physician History of Present Illness: Pt seen and examined at bedside. He tolerated HD today. He still complains of diarrhea. - Current Medication List Current Medications: Active Medications Cholestyramine Resin (Questran Packet -) 4 gm PO BID [facility] Last Admin: 05/22/18 11:39 Dose: Not Given Collagenase (Santyl -) 1 applic TP DAILY [facility]; Protocol Last Admin: 05/22/18 11:40 Dose: 1 applic Diphenhydramine HCl (Benadryl -) 25 mg PO Q8H PRN PRN Reason: itching Fidaxomicin (Dificid (Nf) -) 200 mg PO BID [facility] Stop: 05/27/18 22:01 Last Admin: 05/22/18 11:35 Dose: 200 mg Fludrocortisone Acetate (Florinef -) 0.1 mg PO DAILY [facility] Last Admin: 05/22/18 11:37 Dose: 0.1 mg Heparin Sodium (Porcine) (Heparin -) 5,000 unit SQ BID [facility] Last Admin: 05/22/18 11:38 Dose: Not Given Methylphenidate HCl (Ritalin -) 5 mg PO DAILY [facility] Last Admin: 05/22/18 11:39 Dose: 5 mg Multi-Ingredient Lotion (Eucerin (Small Jar) -) 1 applic TP BID [facility] Last Admin: 05/22/18 11:36 Dose: 1 applic Multivitamins/Minerals/Vitamin C (Tab-A-Vit -) 1 tab PO DAILY [facility] Last Admin: 05/22/18 11:35 Dose: 1 tab Potassium Chloride (K-Dur -) 20 meq PO ONCE ONE Stop: 05/22/18 15:09 Tenofovir Disoproxil Fumarate (Viread -) 300 mg PO Bertrand@1000 [facility] Last Admin: 05/21/18 10:52 Dose: 300 mg - Objective Vital Signs: Vital Signs Temperature 99.0 F 05/22/18 14:50 Pulse Rate 98 H 05/22/18 14:50 Respiratory Rate 14 05/22/18 14:50 Blood Pressure 91/50 L 05/22/18 10:50 O2 Sat by Pulse Oximetry (%) 98 05/22/18 09:00 Constitutional: Yes: Calm Eyes: Yes: Conjunctiva Clear HENT: Yes: Atraumatic Cardiovascular: Yes: S1, S2 Respiratory: Yes: CTA Bilaterally Gastrointestinal: Yes: Other (diarrhea) Genitourinary: Yes: Incontinence Musculoskeletal: Yes: Muscle Weakness Edema: No Neurological: Yes: Oriented Psychiatric: Yes: Oriented Labs: CBC, BMP 05/22/18 07:45 05/22/18 07:45 Problem List - Problems (1) Acute diarrhea Code(s): R19.7 - DIARRHEA, UNSPECIFIED (2) ESRD (end stage renal disease) Code(s): N18.6 - END STAGE RENAL DISEASE (3) Hypotension Code(s): I95.9 - HYPOTENSION, UNSPECIFIED Assessment/Plan Current Medications Generic Name Dose Route Start Last Admin Trade Name Freq PRN Reason Stop Dose Admin Cholestyramine Resin 4 gm 05/13/18 22:00 05/22/18 11:39 Questran Packet - PO Not Given BID [facility] Collagenase 1 applic 05/13/18 10:00 05/22/18 11:40 Santyl - TP 1 applic DAILY [facility] Administration Protocol Diphenhydramine HCl 25 mg 05/12/18 23:22 Benadryl - PO Q8H PRN itching Fidaxomicin 200 mg 05/18/18 11:30 05/22/18 11:35 Dificid (Nf) - PO 05/27/18 22:01 200 mg BID [facility] Administration Fludrocortisone Acetate 0.1 mg 05/13/18 10:00 05/22/18 11:37 Florinef - PO 0.1 mg DAILY [facility] Administration Heparin Sodium (Porcine) 5,000 unit 05/18/18 22:00 05/22/18 11:38 Heparin - SQ Not Given BID [facility] Methylphenidate HCl 5 mg 05/13/18 10:00 05/22/18 11:39 Ritalin - PO 5 mg DAILY [facility] Administration Multi-Ingredient Lotion 1 applic 05/13/18 10:00 05/22/18 11:36 Eucerin (Small Jar) - TP 1 applic BID [facility] Administration Multivitamins/Minerals/Vitamin C 1 tab 05/13/18 10:00 05/22/18 11:35 Tab-A-Vit - PO 1 tab DAILY [facility] Administration Potassium Chloride 20 meq 05/22/18 15:08 K-Dur - PO 05/22/18 15:09 ONCE ONE Tenofovir Disoproxil Fumarate 300 mg 05/14/18 10:00 05/21/18 10:52 Viread - PO 300 mg Bertrand@1000 [facility] Administration Impression 1. ESRD 2. anemia 3. osteomyelitis 4. Hep B 5. diarrhea 6. depression 7. non-compliance with HD 8. acidisos - metabolic Plan - pt tolerated HD today - replace potassium - monitor lytes - pt still with diarrhea - will give a small dose of potassium Dr Frey
[2018-05-22] MEDS ORDERED: POTASSIUM CHLORIDE TABS 20 MEQ TABLET.ER (FP) PO ONE (15:30)
[2018-05-23 08:48] LABS: ANION GAP 11 MMOL/L (8-16); BLOOD UREA NITROGEN 15 mg/dL (7-18); CALCIUM 8.5 mg/dL (8.5-10.1); CHLORIDE 109 mmol/L (98-107); CO2 26 mmol/L (21-32); CREATININE 5.9 mg/dL (0.55-1.3); GLUCOSE,RANDOM 103 mg/dL (74-106); MAGNESIUM 2.2 mg/dL (1.8-2.4); SODIUM 146 mmol/L (136-145)
[2018-05-23] MEDS ORDERED: PT OWN MED DRAWER 7, Y5N ONE ×3 (09:37→11:54)
[2018-05-23] MEDS: CHOLESTYRAMINE/ASPARTAME 4 GM PACKET PO SCH ×2 (09:41→09:46)
[2018-05-23] MEDS: FIDAXOMICIN 200 MG TABLET PO SCH (09:41)
[2018-05-23] MEDS: MULTIVITAMINS (DAILY MVI) TABLET (FP) PO SCH (09:41)
[2018-05-23] MEDS: FLUDROCORTISONE ACETATE 0.1 MG TABLET (FP) PO SCH (09:42)
[2018-05-23] MEDS: HEPARIN NA (PORCINE) 5,000 UNITS/ML 1ML VIAL SQ SCH (09:43)
[2018-05-23] MEDS: METHYLPHENIDATE HCL 5 MG TABLET PO SCH (09:43)
[2018-05-23] MEDS: MINERAL OIL/PETROLAT/WATER TOPICAL CREAM 113 GM JAR TP SCH (09:44)
[2018-05-23] MEDS: COLLAGENASE CLOSTRIDIUM HIST. 30 GRAMS TUBE TP SCH (09:44)
--- NOTE | 2018-05-23 11:02 | DS ---
Physical Examination Vital Signs: Vital Signs Temperature 98.3 F 05/23/18 06:36 Pulse Rate 80 05/23/18 06:36 Respiratory Rate 20 05/23/18 06:36 Blood Pressure 80/60 L 05/23/18 06:36 O2 Sat by Pulse Oximetry (%) 98 05/22/18 09:00 Constitutional: Yes: No Distress, Calm Cardiovascular: Yes: Regular Rate and Rhythm Respiratory: Yes: Diminished Gastrointestinal: Yes: Normal Bowel Sounds, Soft. No: Tenderness Edema: No Labs: CBC, BMP 05/22/18 07:45 05/23/18 07:15 Discharge Summary Reason For Visit: ACUTE DIARRHEA Current Active Problems Acute diarrhea (Acute) C. difficile colitis (Acute) Chronic diarrhea (Acute) Recurrent Clostridium difficile diarrhea (Acute) Sacral decubitus ulcer (Acute) Hospital Course: Admitted for acute diarrhea, dehydration Seen by ID, renal and GI Found to have Cdiff Can not tolerate Vanco Failed Flagyl He has started on Fidoximicin-- still has diarrhea but frequency has decreased He still has loose stools He will need to complete the entire course of Fidoximicin, if still has loose stools, needs to recheck the stools for Cdiff- if recurrent, may need to go to tertiary center -[facility]- for stool transplant.Pt and his admissions counselor are aware of plan Stable for dc to [place] Needs to check labs on dialysis days Condition: Improved - Instructions - Home Medications Comprehensive Discharge Medication List: Ambulatory Orders Collagenase Clostridium Hist. [Santyl -] 1 applic TP DAILY tube 02/20/18 Tenofovir Disoproxil Fumarate 300 mg PO WEEKLY 03/24/18 Collagenase Clostridium Hist. [Santyl -] 1 applic TP DAILY 05/12/18 Diphenhydramine HCl [Benadryl Capsule -] 25 mg PO Q8H PRN 05/12/18 Fludrocortisone Acetate [Florinef -] 0.1 mg PO DAILY 05/12/18 Loperamide HCl [Imodium A-D] 2 mg PO TID 05/12/18 Methylphenidate HCl 5 mg PO DAILY 05/12/18 Mineral Oil/Petrolat,Wht/Water [Eucerin (Small Jar) -] 1 applic TP BID 05/12/18 Multivitamins [Multivit ([facility] Formulary)] 1 tab PO DAILY 05/12/18 metroNIDAZOLE [Flagyl -] 500 mg PO TID 05/12/18 Fidaxomicin [Dificid -] 200 mg PO BID #20 tablet 05/16/18
[2018-05-23] MEDS ORDERED: POTASSIUM CHLORIDE ORAL LIQUID 20 MEQ/15 ML PO ONE (11:30)
[2018-05-23 12:21] VITALS: BP 122/74; PULSE 95; TEMP 98.8
== END 2018-05-23 12:37 | DRG 371 ==
LOC: JER 18:02 → JERBED 21:24 → J8W 05-13 00:22
PROVIDERS: ADMIT Internal Medicine; ATTEND Internal Medicine
PROC: 5A1D70Z Performance of Urinary Filtration, Intermittent, Less than 6 Hours Per Day (ICD-10-PCS; principal; 2018-05-15)
PROC: 5A1D70Z Performance of Urinary Filtration, Intermittent, Less than 6 Hours Per Day (ICD-10-PCS; 2018-05-19)
PROC: 5A1D70Z Performance of Urinary Filtration, Intermittent, Less than 6 Hours Per Day (ICD-10-PCS; 2018-05-22)
DX: A04.72 Enterocolitis due to Clostridium difficile, not specified as recurrent (principal); L89.153 Pressure ulcer of sacral region, stage 3; N18.6 End stage renal disease; I12.0 Hypertensive chronic kidney disease with stage 5 chronic kidney disease or end stage renal disease; B19.10 Unspecified viral hepatitis B without hepatic coma; M86.9 Osteomyelitis, unspecified; L97.528 Non-pressure chronic ulcer of other part of left foot with other specified severity; L97.518 Non-pressure chronic ulcer of other part of right foot with other specified severity; E87.2 Acidosis; E86.0 Dehydration; E78.00 Pure hypercholesterolemia, unspecified; E11.22 Type 2 diabetes mellitus with diabetic chronic kidney disease; E11.69 Type 2 diabetes mellitus with other specified complication; E11.621 Type 2 diabetes mellitus with foot ulcer; E87.6 Hypokalemia; E11.42 Type 2 diabetes mellitus with diabetic polyneuropathy; D64.9 Anemia, unspecified; F32.9 Major depressive disorder, single episode, unspecified; L89.622 Pressure ulcer of left heel, stage 2; L89.612 Pressure ulcer of right heel, stage 2; I95.9 Hypotension, unspecified; Z99.2 Dependence on renal dialysis; Z91.15 Patient's noncompliance with renal dialysis
CPT/HCPCS: 11042; 11045; 36415; 74176-TC; 80048; 80053; 82272; 82438; 82565; 82784; 82941; 83516; 83735; 84100; 84302; 84520; 84999; 85025; 85027; 86704; 86706; 86708; 86803; 87045; 87046; 87177; 87205; 87207; 87209; 87324; 87328; 87329; 87340; 87449; 93005; 93010; 93922; 93925-TC; 99285-25; J0885; J1644; J7030; P9047

== ENCOUNTER 2018-07-24 07:36 | Inpatient (IN) | payer OTHER ==
[2018-07-24] MEDS ORDERED: SODIUM CHLORIDE 2,585 ML IV ONE (08:29)
[2018-07-24 08:50] LABS: VENOUS PC02 34.4 mmHg (38-52); VENOUS PH 7.21 (7.32-7.42); VENOUS PO2 48.6 mmHg (28-48)
--- NOTE | 2018-07-24 08:52 | PDOC ---
History of Present Illness - General Chief Complaint: Pain, Acute Stated Complaint: ABD PAIN Time Seen by Provider: 07/24/18 08:50 History Source: Patient Exam Limitations: No Limitations, Other (non-compliant, pt difficult and uncooperative with some ROS/physical exam) - History of Present Illness Initial Comments: Pt is a 52 yo M, with PMH of NIDDM, osteomyelitis 2/2 to chronic sacral and b/l foot ulcers, CKD (dialysis non-compliant, scheduled M//), Hepatitis B, and C. diff colitis, who is presenting with diffuse watery diarrhea and diffuse abdominal pain x1 week. His last dialysis session with last . Pt states the pain in his abdomen is diffuse, does not radiate, and is exacerbated with "cramping sensation" and feeling that he needs to have a BM. It is not worsened with any particular food. He is having multiple episodes of loose brown stool per day, with no blood. Pt denies any fevers/chills, headache, vision changes, chest pain, palpitations, SOB, decreased PO intake, nausea/vomiting, urinary symptoms, blood in BMs, or leg swelling. Pt was recently admitted in April 2018 for C diff colitis, and has been treated outpatient with Dificid 200 mg PO BID, due to an inpatient reaction he had with IV vancomycin (skin peeling on feet). The pt was advised by his GI doctor (Dr. Mcdonald) to come to the ER last week after his diarrhea worsened, and the pt did not comply with ER visit at that time. The pt states he has been staying in a rehab facility after a prior admission for osteomyelitis 2/2 to non -healing DM ulcers. Social: Pt denies any cigarette, alcohol, or drug use. Pt denies any recent travel or sick contacts. Surgical: I/D after prior osteomyelitis. Family: no relevant history 08/09/18 14:54 Past History - Travel Traveled outside of the country in the last 30 days: No Close contact w/someone who was outside of country & ill: No - Past Medical History Allergies/Adverse Reactions: Allergies Allergy/AdvReac Type Severity Reaction Status Date / Time levofloxacin [From Levaquin] Allergy Mild Rash Verified 07/24/18 08:07 vancomycin Allergy Verified 07/24/18 08:07 amino Allergy Intermediate Rash Uncoded 07/24/18 08:07 Home Medications: Ambulatory Orders Unobtainable 07/24/18 Anemia: No Cardiac Disorders: No Hx Myocardial Infarction: No CHF: No Diabetes: Yes Dialysis: Yes (ESRD, scheduled M/W/F, non-compliant) HTN: No Hypercholesterolemia: No Other medical history: Hep B - Surgical History Abdominal Surgery: No Orthopedic Surgery: Yes (osteomyelitis I/D) - Immunization History Immunization Up to Date: Yes - Suicide/Smoking/Psychosocial Hx Smoking History: Unknown if ever smoked Have you smoked in the past 12 months: No Hx Alcohol Use: No Drug/Substance Use Hx: No Substance Use Type: None Hx Substance Use Treatment: No Review of Systems - Review of Systems Able to Perform ROS?: Yes Is the patient limited Divehi proficient: No Constitutional: Yes: Weight Stable. No: Chills, Diaphoresis, Fever, Loss of Appetite, Weakness HEENTM: No: Recent change in vision, Nose Congestion, Hearing Loss, Throat Pain , Difficulty Swallowing Respiratory: No: Cough, Orthopnea, Shortness of Breath Cardiac (ROS): No: Chest Pain, Edema, Irregular Heart Rate, Lightheadedness, Palpitations, Syncope, Chest Tightness ABD/GI: Yes: See HPI, Abd. Pain w/ defecation, Diarrhea, Abdominal cramping. No : Abdominal Distended, Blood Streaked Bowels, Constipated, Difficulty Swallowing , Nausea, Poor Appetite, Poor Fluid Intake, Rectal Bleeding, Vomiting, Tarry Stools : No: Burning, Dysuria, Frequency, Hematuria, Pain, Urgency Musculoskeletal: No: Back Pain, Joint Pain Integumentary: No: Rash Neurological: No: Headache, Seizure, Weakness, Unsteady Gait, Ataxia, Dizziness Psychiatric: No: Sleep Pattern Change, Change in Appetite Endocrine: No: Increased Urine, Change in Weight Hematologic/Lymphatic: No: Anemia, Blood Clots, Easy Bleeding, Easy Bruising All Other Systems: Reviewed and Negative *Physical Exam - Vital Signs Last Vital Signs Temp Pulse Resp BP Pulse Ox 98.0 F 88 18 77/49 L 100 07/24/18 07:40 07/24/18 07:40 07/24/18 07:40 07/24/18 07:40 07/24/18 07:40 - Physical Exam General Appearance: Yes: Nourished, Appropriately Dressed, Mild Distress (Mild abdominal tenderness with exam, hypotensive). No: Cachetic HEENT: positive: EOMI, JAMI, Normal ENT Inspection, Normal Voice, Pharynx Normal , Hearing Grossly Normal. negative: Scleral Icterus (R), Scleral Icterus (L), Pharyngeal Erythema, Tonsillar Exudate, Tonsillar Erythema, Rhinorrhea, Sinus Tenderness Neck: positive: Trachea midline, Normal Thyroid, Supple. negative: Tender, Rigid, Decreased range of motion, Lymphadenopathy (R), Lymphadenopathy (L), Rigidity Respiratory/Chest: positive: Lungs Clear, Normal Breath Sounds. negative: Chest Tender, Respiratory Distress, Accessory Muscle Use, Crackles, Wheezing Cardiovascular: positive: Regular Rhythm, Regular Rate, S1, S2. negative: Edema , JVD, Murmur Vascular Pulses: Carotid (R): 4+, Carotid (L): 4+ Gastrointestinal/Abdominal: positive: Normal Bowel Sounds, Tender (diffuse, mild ), Flat, Soft. negative: Organomegaly, Pulsatile Mass, Distended, Guarding , Rebound Rectal Exam: positive: deferred (pt refused exam) Lymphatic: negative: Adenopathy, Tenderness Musculoskeletal: positive: Normal Inspection. negative: CVA Tenderness, Decreased Range of Motion Extremity: positive: Normal Capillary Refill, Normal Inspection, Normal Range of Motion, Pelvis Stable. negative: Tender, Pedal Edema Integumentary: positive: Normal Color, Dry, Warm, Other (Pt refused exam of sacral and foot ulcers. Feet wrapped in gauze, gauze appears clean.). negative : Jaundice, Clammy, Diaphoresis, Rash Neurologic: positive: vamp throater II-XII NML intact, Fully Oriented, Alert, Normal Mood/ Affect, Normal Response, Motor Strength 5/5. negative: Numbness, Sensory Deficit ED Treatment Course - LABORATORY CBC & Chemistry Diagram: 08/08/18 07:15 08/08/18 07:15 Medical Decision Making - Critical Care Time Total Critical Care Time (minutes): 40 Critical Care Statement: The care of this patient involved high complexity decision making to prevent further life threatening deterioration of the patient 's condition and/or to evaluate & treat vital organ system(s) failure or risk of failure. - Medical Decision Making Pt was seen at bedside, also will be seen by attending Dr. Rojas. Pt presenting with diffuse watery diarrhea and diffuse abdominal pain x1 week. Pt with extensive medical history, including NIDDM, osteomyelitis 2/2 to chronic sacral and b/l foot ulcers, CKD (dialysis non-compliant, scheduled M/W/), Hepatitis B , and C. diff colitis. Pt states the pain in his abdomen is diffuse, does not radiate, and is exacerbated with "cramping sensation" and feeling that he needs to have a BM. It is not worsened with any particular food. He is having multiple episodes of loose brown stool per day, with no blood. Pt denies any fevers/chills, headache, vision changes, chest pain, palpitations, SOB, decreased PO intake, nausea/vomiting, urinary symptoms, blood in BMs, or leg swelling. Pt was recently admitted in April 2018 for C diff colitis, and has been treated outpatient with Dificid 200 mg PO BID, due to an inpatient reaction he had with IV vancomycin (skin peeling on feet). The pt was advised by his GI doctor (Dr. Mcdonald) to come to the ER last week after his diarrhea worsened, and the pt did not comply with ER visit at that time. The pt states he has been staying in a rehab facility after a prior admission for osteomyelitis 09/30 to non -healing DM ulcers. PE showed mild diffuse abdominal tenderness to palpation, no rebound, no guarding. Pt refused rectal exam and exam of sacral ulcers and b/l LE ulcers, stating that "he takes care of this [himself] and this is C diff". Pt agreed to allow exam once pain better controlled. Will ask again for further exam. Considering C diff/toxin-mediated colitis vs inflammatory colitis vs IBS/IBD vs diverticulitis vs other infectious source for sepsis (UTI). Ordered work-up including sepsis work-up, ECG, troponin, chest x-ray. Provided 1g ofirmev and 30 cc/kg (~2.5 L) IV NS for improvement of hypotension and pain. Will continue to reassess pt and monitor for symptomatic improvement. 07/24/18 10:10 CBC WNL. CMP: K 2.6, BUN 69, Cr 17.7 (baseline ~5-12). Lactic acid 1.0 and trop <.02 ECG: HR 86, IL 192, narrow QRS, QTc 473. No considerable ST segment changes ( flattening of T wave in septal leads). Paging Dr. Klein (ID) for recommendations of antibiotic coverage (pt has allergies to levaquin and vanc) and Dr. Mcdonald (GI) who sees pt for GI follow -up. Calling Dr. Heydi Sampson for admission/recommendations. 07/24/18 10:10 Providing 10 meq K x4 bags each over 60 minutes after speaking with pharmacy recommendations. Will re-check potassium. Spoke with Dr. Heydi Sampson who accepted pt for admission. Order for admission changed. 07/24/18 10:[address] Mcdonald (GI), who stated he spoke to pt last week about his symptoms, and told him to come to the ER for further evaluation. Pt did not comply at that time. The pt had been treated outpatient with Dificid (200 mg BID ) due to his prior reaction with IV vancomycin. Calling Dr. Frey to initiate dialysis/consult. 07/24/18 11:07 Repeat BP 82/40, pt BP has been labile, but continuing fluid boluses (has not received full 2.5 L at this point). Will continue to monitor and evaluate need for central line placement. 07/24/18 11:18 C diff in stool positive. Mg and Phos added-on per Dr. Sampson. 07/24/18 11:43 Dr. Klein (ID) at bedside to see pt. We started PO Vancomycin 125 mg PO Q6hr, as pt prior reaction (skin peeling) likely due to rapid IV infusion. 07/24/18 11:58 Dr. Frey (nephro) at bedside to see pt who will dialyze pt today and provide additional fluid. Consult placed for cardiology as pt will be on tele bed with hypokalemia (Dr. Quintero). Pending inpatient telemetry bed. Pt lying comfortably, will continue to reassess vitals and improvement -- BP stable at 80s/40s. Order placed for repeat BMP ~14:00 to assess response to potassium. 07/24/18 12:18 Repeat BP 119/65. Pt comfortable and states pain improved after interventions. Awaiting transfer to bed upstairs. Pt has continued to refuse to allow exam of sacrum and b/l lower extremities, despite controlling pts pain. 07/24/18 14:12 08/09/18 14:31 08/09/18 14:44 *DC/Admit/Observation/Transfer Diagnosis at time of Disposition: C. difficile colitis, Recurrent Clostridium difficile diarrhea Hypotension Qualifiers: Hypotension type: unspecified hypotension type Qualified Code(s): I95.9 - Hypotension, unspecified - Discharge Dispostion Condition at time of disposition: Guarded Decision to Admit order: Yes - Referrals - Patient Instructions - Post Discharge Activity
[2018-07-24 08:56] LABS: BASO % 0.7 % (0-2.0); EOS % 2.8 % (0-4.5); HEMATOCRIT 30.8 % (35.4-49); HEMOGLOBIN 10.6 GM/dL (11.7-16.9); LYMPH % 24.1 % (8-40); MCH 32.1 pg (25.7-33.7); MCHC 34.6 g/dl (32.0-35.9); MEAN CELL VOLUME 92.8 fl (80-96); MEAN PLT VOLUME 10.4 fl (7.5-11.1); MONO % 22.1 % (3.8-10.2); NEUT % 50.3 % (42.8-82.8); PLATELET COUNT 124 K/MM3 (134-434); RBC 3.31 M/mm3 (4.00-5.60); RDW 15.4 % (11.9-15.9); WHITE BLOOD COUNT 5.4 K/mm3 (4.0-10.0)
[2018-07-24 09:03] LABS: INR 1.01 (0.83-1.09); PROTHROMBIN TIME (PATIENT) 11.9 SEC (9.7-13.0)
[2018-07-24 09:06] LABS: ACTIVATED PTT 30.3 SECONDS (25.2-36.5)
[2018-07-24 09:18] LABS: ALBUMIN 2.6 g/dl (3.4-5.0); ALK PHOS 59 U/L (45-117); ANION GAP 20 MMOL/L (8-16); BILIRUBIN,TOTAL 0.4 mg/dL (0.2-1); BLOOD UREA NITROGEN 69 mg/dL (7-18); CHLORIDE 104 mmol/L (98-107); CO2 13 mmol/L (21-32); GLUCOSE,RANDOM 68 mg/dL (74-106); SGOT/AST < 3 U/L (15-37); SGPT/ALT 8 U/L (13-61); SODIUM 137 mmol/L (136-145); TOT PROT 5.6 g/dl (6.4-8.2)
[2018-07-24] MEDS ORDERED: ACETAMINOPHEN 1000 MG/100 ML VIAL (NON FORMULARY) IVPB ONE (09:45)
[2018-07-24 10:20] LABS: CREATININE 17.7 mg/dL (0.55-1.3); POTASSIUM 2.6 mmol/L (3.5-5.1)
[2018-07-24] MEDS ORDERED: KCL 10 MEQ IVPB 10 MEQ/100 ML INFUS.BAG IVPB ONE ×3 (10:48→13:59)
[2018-07-24] MEDS: KCL 10 MEQ IVPB 10 MEQ/100 ML INFUS.BAG IVPB SCH ×4 (10:59→14:59)
[2018-07-24] MEDS ORDERED: ACETAMINOPHEN INJECTION 100 ML IVPB ONE (11:24)
--- NOTE | 2018-07-24 11:32 | PDOC ---
Attending Attestation - HPI HPI: 07/24/18 13:04 The patient is a 52 year old male, with a significant past medical history of chronic Cdiff, ESRD (on dialysis MWF, last dialyzed ), who presents to the emergency department wit persistant watery diarrhea and diffuse abdominal pain for about a week sent by his physician for treatment. He states his abdominal pain is exacerbated with BM. The patient denies chest pain, shortness of breath, headache and dizziness. The patient denies fever, chills, nausea, vomit, constipation. The patient denies dysuria, frequency, urgency and hematuria. Allergies: levofloxacin, meropenem, vancomycin PCP - Dr. Maxine Sampson - Physicial Exam PE: 07/24/18 13:06 Vitals: Triage vital signs reviewed General Appearance: No acute distress, well nourished, well developed Head: Atraumatic Eyes: Pupils equal reactive round, extraocular movement intact Neck: Supple; No nuchal rigidity Chest Wall: Nontender Cardiac: Regular rate and rhythm, no murmurs, no rubs, no gallops Lungs: Clear to auscultation bilateral, good air movement bilaterally Abdomen: (+) diffuse abdominal tenderness. Soft, nondistended, normal bowel sounds, Extremities: Full range of motion to all extremities, no cyanosis, clubbing, or edema Skin: Warm and dry, no rashes or lesions, no rash, no petechiae Neuro: AOX3; Cranial Nerves 2-12 grossly intact, Strength intact to all extremities, Sensation intact to all extremities, gait normal Psych: Normal mood, normal affect - Medical Decision Making 07/24/18 13:06 Documentation prepared by Thu Gibbs, acting as medical staff physician for Eliezer Rojas MD <Thu Gibbs - Last Filed: 07/24/18 13:04> - Resident Resident Name: Karina Dunham - ED Attending Attestation I have performed the following: I have examined & evaluated the patient, The case was reviewed & discussed with the resident, I agree w/resident's findings & plan, Exceptions are as noted - Medical Decision Making Persistent C. difficile with diffuse abdominal discomfort borderline hypotension patient on dialysis unable to be dialyzed today secondary to hypotension we'll gently hydrate ID has been consult did recommended by mouth vancomycin We'll admit hospital for further management of C. difficile nephrology consult in for dialysis. We'll admit to hospital for further management. <Eliezer Rojas - Last Filed: 07/24/18 16:23>
--- NOTE | 2018-07-24 11:56 | CON.ID ---
Consult Consult Specialty:: infectious diseases Reason for Consultation:: dirrhoea,cdiff,left heel non healing wound - History of Present Illness Chief Complaint: dirrhoea,weakness History of Present Illness: 52 year old male, with a significant past medical history of chronic Cdiff, ESRD (on dialysis MWF, last dialyzed ), who presents to the emergency department with persistent watery diarrhea and diffuse abdominal pain for about a week patient had cdiff and was treated for the same with fioxymycin and patient was doing well.till recently patient has been following with gi and was advised to come to the er where he was hypotensive currently patient is comfortable and ahs no complaints - History Source History Provided By: Patient Limitations to Obtaining History: No Limitations - Past Medical History 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 No: Abel's Disease, Mario's Disease, Diabetes Insipidus, Hyperparathyroidism, Hyperthyroidism, Hypothyroidism, Osteopenia, SIADH, Other - Past Surgical History Past Surgical History: Yes: AV Fistula/Graft - Alcohol/Substance Use Hx Alcohol Use: No - Smoking History Smoking history: Unknown if ever smoked Have you smoked in the past 12 months: No - Social History Usual Living Arrangement: With Significant Other Home Medications - Allergies Allergies/Adverse Reactions: Allergies Allergy/AdvReac Type Severity Reaction Status Date / Time levofloxacin [From Levaquin] Allergy Mild Rash Verified 07/24/18 08:07 meropenem Allergy Verified 07/24/18 08:07 vancomycin Allergy Verified 07/24/18 08:07 amino Allergy Intermediate Rash Uncoded 07/24/18 08:07 - Home Medications Home Medications: Ambulatory Orders Unobtainable 07/24/18 Review of Systems - Review of Systems Constitutional: reports: No Symptoms Eyes: reports: No Symptoms HENT: reports: No Symptoms Neck: reports: No Symptoms Cardiovascular: reports: No Symptoms Respiratory: reports: No Symptoms Gastrointestinal: reports: Diarrhea Genitourinary: reports: No Symptoms Musculoskeletal: reports: No Symptoms Integumentary: reports: No Symptoms Neurological: reports: No Symptoms Endocrine: reports: No Symptoms Hematology/Lymphatic: reports: No Symptoms Psychiatric: reports: No Symptoms Physical Exam Vital Signs: Vital Signs Temperature 98.0 F 07/24/18 09:14 Pulse Rate 87 07/24/18 11:19 Respiratory Rate 18 07/24/18 10:59 Blood Pressure 82/40 L 07/24/18 11:19 O2 Sat by Pulse Oximetry (%) 100 07/24/18 09:55 Constitutional: Yes: Calm, Mild Distress HENT: Yes: Atraumatic Neck: Yes: Supple, Trachea Midline Cardiovascular: Yes: Regular Rate and Rhythm Respiratory: Yes: Regular, CTA Bilaterally Gastrointestinal: Yes: Normal Bowel Sounds, Soft, Other (dirrhoea) Musculoskeletal: Yes: WNL Extremities: Yes: Other (left heel ulcer) Wound/Incision: Yes: Other (left heel infected) Neurological: Yes: Alert, Oriented Psychiatric: Yes: Alert, Oriented Labs: CBC, BMP 07/24/18 08:30 07/24/18 08:30 Imaging - Results Chest X-ray: Report Reviewed, Image Reviewed Assessment/Plan Problem List - Problems (1) Acute diarrhea Code(s): R19.7 - DIARRHEA, UNSPECIFIED (2) Bilateral pressure ulcer of feet Code(s): L89.899 - PRESSURE ULCER OF OTHER SITE, UNSPECIFIED STAGE (3) C. difficile colitis Code(s): A04.72 - ENTEROCOLITIS D/T CLOSTRIDIUM DIFFICILE, NOT SPCF RECUR (4) Chronic diarrhea Code(s): K52.9 - NONINFECTIVE GASTROENTERITIS AND COLITIS, UNSPECIFIED (5) Diabetic foot ulcer Code(s): E11.621 - TYPE 2 DIABETES MELLITUS WITH FOOT ULCER; L97.509 - NON- PRESSURE CHRONIC ULCER OTH PRT UNSP FOOT W UNSP SEVERITY Qualifiers: Diabetic foot ulcer location: heel Diabetes mellitus type: other specified (including JADON) Laterality: unspecified laterality Non-pressure ulcer stage : unspecified non-pressure ulcer stage Qualified Code(s): E13.621 - Other specified diabetes mellitus with foot ulcer; L97.409 - Non-pressure chronic ulcer of unspecified heel and midfoot with unspecified severity (6) ESRD (end stage renal disease) Code(s): N18.6 - END STAGE RENAL DISEASE (7) Generalized weakness Code(s): R53.1 - WEAKNESS (8) Sacral decubitus ulcer Code(s): L89.159 - PRESSURE ULCER OF SACRAL REGION, UNSPECIFIED STAGE 9 left heel wound plan will start patient on oral vanco wound care await for all results wound cx rest as per the team
[2018-07-24 12:09] LABS: MAGNESIUM 2.4 mg/dL (1.8-2.4); PHOSPHOROUS 6.8 mg/dL (2.5-4.9)
[2018-07-24 12:22] LABS: ACANTHOCYTES 1+; ANISOCYTOSIS 2+; MACROCYTOSIS 0; OVALOCYTE 1+; PLATELET ESTIMATE DECREASED; TEAR DROP CELLS 1+
[2018-07-24] MEDS ORDERED: SODIUM CHLORIDE 1,000 ML IV STA (12:52)
[2018-07-24] MEDS ORDERED: VANCOMYCIN 1 GRAM (PRE-DOCKED) 1,000 MG/250 ML BAG IVPB ONE (12:56)
--- NOTE | 2018-07-24 13:30 | EKG ---
Test Reason : Blood Pressure : / mmHG Vent. Rate : 086 BPM Atrial Rate : 086 BPM P-R Int : 192 ms QRS Dur : 066 ms QT Int : 396 ms P-R-T Axes : 028 014 045 degrees QTc Int : 473 ms NORMAL SINUS RHYTHM SEPTAL INFARCT (CITED ON OR BEFORE 31-JAN-2018) ABNORMAL ECG WHEN COMPARED WITH ECG OF 12-MAY-2018 20:48, NO SIGNIFICANT CHANGE WAS FOUND Confirmed by NIRANJAN GERBER MD ([id number]) on 07/24/2018 1:30:24 PM Referred By: Confirmed By:NIRANJAN GERBER MD
[2018-07-24] MEDS: VANCOMYCIN 250 MG/5 ML ORAL SOLUTION PO SCH ×2 (14:04→23:02)
--- NOTE | 2018-07-24 14:05 | HP ---
Admitting History and Physical - Primary Care Physician PCP: Heydi Sampson - Admission Chief Complaint: diarrhea for last week or so. History of Present Illness: 07/24/18 13:04 The patient is a 52 year old male, with a significant past medical history of chronic Cdiff, ESRD (on dialysis MWF, last dialyzed ), who presents to the emergency department wit persistant watery diarrhea and diffuse abdominal pain for about a week patient had seen GI doctor last week----and advised to go to ER--- patient did not go--- on questioning--- patient reports he did not want to--comes to Hospital during the recent holidays now coming as diarrhea worsening In the emergency room--- Patient was hypotensive Given fluids also potassium--- replaced Patient seen by me in the emergency room Awake and comfortable feels better Denies abdominal pain at present Denies fever or chills denies blood in the stools. 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 No: Antelope's Disease, Fairbank's Disease, Diabetes Insipidus, Hyperparathyroidism, Hyperthyroidism, Hypothyroidism, Osteopenia, SIADH, Other - Past Surgical History Past Surgical History: Yes: AV Fistula/Graft - Smoking History Smoking history: Unknown if ever smoked Have you smoked in the past 12 months: No - Alcohol/Substance Use Hx Alcohol Use: No Home Medications - Allergies Allergies/Adverse Reactions: Allergies Allergy/AdvReac Type Severity Reaction Status Date / Time levofloxacin [From Levaquin] Allergy Mild Rash Verified 07/24/18 08:07 meropenem Allergy Verified 07/24/18 08:07 vancomycin Allergy Verified 07/24/18 08:07 amino Allergy Intermediate Rash Uncoded 07/24/18 08:07 - Home Medications Home Medications: Ambulatory Orders Unobtainable 07/24/18 Review of Systems - Review of Systems Constitutional: reports: Weakness Eyes: reports: No Symptoms Neck: reports: No Symptoms Cardiovascular: reports: No Symptoms Respiratory: reports: No Symptoms Gastrointestinal: reports: Abdominal Pain, Diarrhea Genitourinary: reports: No Symptoms Neurological: reports: No Symptoms Psychiatric: reports: Anxiety Physical Examination Vital Signs: Vital Signs Temperature 98.0 F 07/24/18 13:09 Pulse Rate 80 07/24/18 13:09 Respiratory Rate 18 07/24/18 13:09 Blood Pressure 82/43 L 07/24/18 13:09 O2 Sat by Pulse Oximetry (%) 100 07/24/18 13:09 Constitutional: Yes: No Distress, Calm Eyes: Yes: Conjunctiva Clear Neck: Yes: Supple Cardiovascular: Yes: Regular Rate and Rhythm Gastrointestinal: Yes: Normal Bowel Sounds, Soft Edema: No Integumentary: Yes: Other (history of heel ulcers--- follows at wound care.) Neurological: Yes: Alert Labs: CBC, BMP 07/24/18 08:30 07/24/18 08:30 Imaging - Results Chest X-ray: Report Reviewed EKG: Report Reviewed Problem List - Problems (1) Acute diarrhea Code(s): R19.7 - DIARRHEA, UNSPECIFIED (2) Bilateral pressure ulcer of feet Code(s): L89.899 - PRESSURE ULCER OF OTHER SITE, UNSPECIFIED STAGE (3) ESRD (end stage renal disease) Code(s): N18.6 - END STAGE RENAL DISEASE Assessment/Plan discussed with patient in detail vancomycin--orally Dialysis as per renal--discussed with Dr. Young follow-up labs C. difficile precautions Monitor on telemetry tonight Further recommendations--- as per clinical course Clinical condition stable but guarded Will consult GI also Will follow
--- NOTE | 2018-07-24 15:33 | CONSULT ---
Consult Consult Specialty:: Nephrology Reason for Consultation:: ESRD - History of Present Illness Chief Complaint: diarrhea History of Present Illness: Pt is a 52 year old male with pmhx of ESRD on HD, non compliance with HD schedule, and c.diff. who presents with diarrhea that has not improved. He has been going to HD twice per week. His last HD session was on of last week. He denies shortness of breath. He denies palpitations or chest pain. He denies fevers or chills. He denies abdominal pain. 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: Peripheral Neuropathy Hepatobiliary: Yes: Hepatitis B Renal/: Yes: Renal Inusuff, Hemodialysis Infectious Disease: Yes: Other (Rt heel OM) Psych: Yes: Depression Endocrine: Yes: Diabetes Mellitus - Past Surgical History Past Surgical History: Yes: AV Fistula/Graft - Alcohol/Substance Use Hx Alcohol Use: No - Smoking History Smoking history: Unknown if ever smoked Have you smoked in the past 12 months: No - Social History Usual Living Arrangement: With Significant Other Home Medications - Allergies Allergies/Adverse Reactions: Allergies Allergy/AdvReac Type Severity Reaction Status Date / Time levofloxacin [From Levaquin] Allergy Mild Rash Verified 07/24/18 08:07 meropenem Allergy Verified 07/24/18 08:07 vancomycin Allergy Verified 07/24/18 08:07 amino Allergy Intermediate Rash Uncoded 07/24/18 08:07 - Home Medications Home Medications: Ambulatory Orders Unobtainable 07/24/18 Family Disease History - Family Disease History Family History: Denies Review of Systems - Review of Systems Constitutional: reports: Malaise. denies: Chills Eyes: reports: No Symptoms HENT: reports: No Symptoms Neck: reports: No Symptoms Cardiovascular: reports: No Symptoms Respiratory: reports: No Symptoms Gastrointestinal: reports: Diarrhea Genitourinary: reports: No Symptoms Musculoskeletal: reports: No Symptoms Neurological: reports: No Symptoms Psychiatric: reports: No Symptoms Physical Exam Vital Signs: Vital Signs Temperature 98.1 F 07/24/18 15:05 Pulse Rate 78 07/24/18 15:05 Respiratory Rate 18 07/24/18 15:05 Blood Pressure 96/46 L 07/24/18 15:05 O2 Sat by Pulse Oximetry (%) 100 07/24/18 15:05 Constitutional: Yes: Calm Eyes: Yes: Conjunctiva Clear HENT: Yes: Atraumatic Cardiovascular: Yes: S1, S2 Respiratory: Yes: CTA Bilaterally Gastrointestinal: Yes: Soft, Other (diarrhea) Musculoskeletal: Yes: WNL Edema: No Neurological: Yes: Oriented Psychiatric: Yes: Oriented Labs: CBC, BMP 07/24/18 08:30 07/24/18 08:30 Laboratory Tests 07/24/18 07/24/18 08:30 08:30 WBC 5.4 Hgb 10.6 L Sodium 137 Potassium 2.6 L* Carbon Dioxide 13 L BUN 69 H Creatinine 17.7 H* Imaging - Results Chest X-ray: Report Reviewed Assessment/Plan Current Medications Generic Name Dose Route Start Last Admin Trade Name Freq PRN Reason Stop Dose Admin Heparin Sodium (Porcine) 5,000 unit 07/24/18 22:00 Heparin - SQ BID IRVIN Vancomycin HCl 125 mg 07/24/18 12:00 07/24/18 14:04 Vancomycin Oral Solution PO 125 mg Q6HPO IRVIN Administration Impression 1. ESRD 2. anemia 3. hypokalemia 4. Hep B 5. diarrhea 6. depression 7. non-compliance with HD 8. acidisos - metabolic Plan - agree with saline boluses - replace potassium - will arrange for HD today, 3 k bath - will give oral potassium as well - ID eval for diarrhea - discussed with ER team
[2018-07-24] MEDS ORDERED: POTASSIUM CHLORIDE TABS 20 MEQ TABLET.ER (FP) PO ONE ×2 (15:45→21:45)
[2018-07-24] MEDS ORDERED: POTASSIUM CHLORIDE ORAL LIQUID 20 MEQ/15 ML ONE (16:22)
[2018-07-24] MEDS ORDERED: SODIUM CHLORIDE 250 ML IV PRN (18:05)
[2018-07-24] MEDS: ALBUMIN HUMAN 25% 12.5 GM/50 ML VIAL IVPB SCH ×4 (18:15→19:49)
--- NOTE | 2018-07-24 18:35 | CON.GI ---
Consult Consult Specialty:: GI Referred by:: Dr. Elizabeth Sampson Reason for Consultation:: Diarrhea - History of Present Illness Chief Complaint: Diarrhea History of Present Illness: 52M admitted for evaluation of diarrhea. He was treated for C. Diff with flagyl and fidaxomicin 05/16. Was seen in office with complaints of diarrhea 1- 2 weeks ago. I advised he go to the ER given concern for possible recurrence of C. Diff however he refused. he came today. He does have a history of chronic diarrhea. He denies abdominal pain. he is C. Diff toxin/Antigen from specimen sent from ER today. He was seen by ID and was started on PO vancomycin. Concern on previous admission was that he had a reaction to IV vancomycin so he was treated with fidaxomicin. He also carries a diagnosis of hepatitis B. it is unclear who treats crystal for this. 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 Hepatobiliary: Yes: Hepatitis B Renal/: Yes: Renal Inusuff, Hemodialysis Infectious Disease: Yes: Other (Rt heel OM) Psych: Yes: Depression Endocrine: Yes: Diabetes Mellitus - Past Surgical History Past Surgical History: Yes: AV Fistula/Graft - Alcohol/Substance Use Hx Alcohol Use: No - Smoking History Smoking history: Unknown if ever smoked Have you smoked in the past 12 months: No - Social History Usual Living Arrangement: With Significant Other ADL: Independent History of Recent Travel: No Home Medications - Allergies Allergies/Adverse Reactions: Allergies Allergy/AdvReac Type Severity Reaction Status Date / Time levofloxacin [From Levaquin] Allergy Mild Rash Verified 07/24/18 08:07 meropenem Allergy Verified 07/24/18 08:07 vancomycin Allergy Verified 07/24/18 08:07 amino Allergy Intermediate Rash Uncoded 07/24/18 08:07 - Home Medications Home Medications: Ambulatory Orders Unobtainable 07/24/18 Family Disease History - Family Disease History Other Family History: No family history of colorectal cancer or IBD Review of Systems - Review of Systems Constitutional: denies: Chills Cardiovascular: denies: Chest Pain Respiratory: denies: SOB Gastrointestinal: reports: Diarrhea. denies: Abdominal Pain Physical Exam-GI Vital Signs: Vital Signs Temperature 98.2 F 07/24/18 17:25 Pulse Rate 90 07/24/18 17:40 Respiratory Rate 18 07/24/18 17:40 Blood Pressure 100/63 07/24/18 17:40 O2 Sat by Pulse Oximetry (%) 99 07/24/18 17:25 Constitutional: Yes: Calm Eyes: No: Sclera Icterus Cardiovascular: Yes: Regular Rate and Rhythm Respiratory: Yes: CTA Bilaterally Gastrointestinal Inspection: No: Distention ...Auscultate: Yes: Normoactive Bowel Sounds ...Palpate: Yes: Soft. No: Hepatomegaly, Splenomegaly, Tenderness ...Percussion: No: Tympanitic Extremities: Yes: Other (chronic stasis) Neurological: Yes: Alert Labs: CBC, BMP 07/24/18 08:30 07/24/18 08:30 INR, PTT INR 1.01 (0.83-1.09) 07/24/18 08:30 Hepatic Panel Total Bilirubin 0.4 mg/dL (0.2-1) 07/24/18 08:30 AST < 3 U/L (15-37) L 07/24/18 08:30 ALT 8 U/L (13-61) L 07/24/18 08:30 Alkaline Phosphatase 59 U/L (45-117) 07/24/18 08:30 Albumin 2.6 g/dl (3.4-5.0) L 07/24/18 08:30 Problem List - Problems (1) C. difficile colitis Assessment/Plan: acute on chronic diarrhea: CDAD Prior celiac serologies unrevealing Advise: Vancomycin 125mg PO q 6 hours. If begins to improve will need slow taper of vanco: ie: 125mg q6h for 14 days 125mg q8h for 1 week 125mg BID for 1 week 125mg daily for 1 week 125mg every other day for 1 week Avoid PPI Gastrin was mildly elevated last admission. Can repeat fasting gastrin Code(s): A04.72 - ENTEROCOLITIS D/T CLOSTRIDIUM DIFFICILE, NOT SPCF RECUR
[2018-07-24 19:58] LABS: ANION GAP 19 MMOL/L (8-16); BLOOD UREA NITROGEN 68 mg/dL (7-18); CHLORIDE 108 mmol/L (98-107); CO2 11 mmol/L (21-32); GLUCOSE,RANDOM 55 mg/dL (74-106); SODIUM 138 mmol/L (136-145)
[2018-07-24 20:02] LABS: CALCIUM 6.6 mg/dL (8.5-10.1); CREATININE 17.1 mg/dL (0.55-1.3)
[2018-07-24 21:30] LABS: CREATININE 7.2 mg/dL (0.55-1.3)
--- NOTE | 2018-07-24 21:35 | PN ---
Progress Note (short form) - Note Progress Note: Laboratory Tests 07/24/18 07/24/18 08:30 18:01 Sodium 138 Potassium 3.0 L Carbon Dioxide 11 L BUN 68 H Creatinine 17.1 H* Calcium 6.6 L* Albumin 2.6 L - will replace lytes
[2018-07-24] MEDS ORDERED: KCL 10 MEQ IVPB 10 MEQ/100 ML INFUS.BAG IVPB SCH (21:45)
[2018-07-24] MEDS ORDERED: CALCIUM GLUCONATE 10% - 1,000 MG/10 ML VIAL IVPB ONE (21:45)
[2018-07-24] MEDS: CALCIUM ACETATE 667 MG CAPSULE (FP) PO SCH (22:27)
[2018-07-24] MEDS: HEPARIN NA (PORCINE) 5,000 UNITS/ML 1ML VIAL SQ SCH (22:28)
[2018-07-25] MEDS: VANCOMYCIN 250 MG/5 ML ORAL SOLUTION PO SCH ×4 (00:11→18:14)
[2018-07-25 06:48] LABS: BASO % 0.8 % (0-2.0); HEMATOCRIT 27.9 % (35.4-49); HEMOGLOBIN 9.1 GM/dL (11.7-16.9); LYMPH % 24.5 % (8-40); MCH 30.3 pg (25.7-33.7); MCHC 32.5 g/dl (32.0-35.9); MEAN CELL VOLUME 93.3 fl (80-96); MEAN PLT VOLUME 10.3 fl (7.5-11.1); MONO % 26.6 % (3.8-10.2); NEUT % 46.1 % (42.8-82.8); PLATELET COUNT 100 K/MM3 (134-434); RDW 15.5 % (11.9-15.9); WHITE BLOOD COUNT 4.8 K/mm3 (4.0-10.0)
[2018-07-25 07:49] LABS: ALBUMIN 2.6 g/dl (3.4-5.0); ALK PHOS 49 U/L (45-117); ANION GAP 22 MMOL/L (8-16); BILIRUBIN,TOTAL 0.6 mg/dL (0.2-1); BLOOD UREA NITROGEN 32 mg/dL (7-18); CALCIUM 7.6 mg/dL (8.5-10.1); CHLORIDE 105 mmol/L (98-107); CO2 16 mmol/L (21-32); PHOSPHOROUS 2.8 mg/dL (2.5-4.9); SGOT/AST 4 U/L (15-37); SGPT/ALT < 6 U/L (13-61); SODIUM 144 mmol/L (136-145)
[2018-07-25 07:54] LABS: CREATININE 9.2 mg/dL (0.55-1.3); GLUCOSE,RANDOM 42 mg/dL (74-106); POTASSIUM 2.7 mmol/L (3.5-5.1)
[2018-07-25] MEDS ORDERED: DEXTROSE 50%-WATER - 25 GM/50 ML VIAL IVPUSH ONE (08:06)
[2018-07-25] MEDS ORDERED: DEXTROSE 50%-WATER 25 GM/50 ML DISP.SYRIN IVPUSH ONE ×2 (08:30→08:45)
[2018-07-25] MEDS ORDERED: DEXTROSE 50%-WATER 25 GM/50 ML DISP.SYRIN ONE ×3 (08:38→09:37)
[2018-07-25] MEDS: HEPARIN NA (PORCINE) 5,000 UNITS/ML 1ML VIAL SQ SCH ×2 (09:06→22:15)
[2018-07-25] MEDS: CALCIUM ACETATE 667 MG CAPSULE (FP) PO SCH ×3 (09:06→18:13)
[2018-07-25] MEDS ORDERED: POTASSIUM CHLORIDE TABS 20 MEQ TABLET.ER (FP) PO ONE (11:10)
--- NOTE | 2018-07-25 11:23 | PN ---
Progress Note (short form) - Note Progress Note: still has loose stools abd sore bloated Vital Signs - 24 hr 07/24/18 07/24/18 07/24/18 13:09 14:04 15:05 Temperature 98.0 F 98.1 F 98.1 F Pulse Rate Pulse Rate [ 80 80 78 Right] Respiratory 18 18 18 Rate Blood Pressure Blood Pressure 82/43 L 119/65 96/46 L [Right Arm] O2 Sat by Pulse 100 100 100 Oximetry (%) 07/24/18 07/24/18 07/24/18 16:19 17:25 17:30 Temperature 98.2 F Pulse Rate 89 91 H Pulse Rate [ 77 Right] Respiratory 18 18 18 Rate Blood Pressure 130/69 107/70 Blood Pressure 105/56 L [Right Arm] O2 Sat by Pulse 99 99 Oximetry (%) 07/24/18 07/24/18 07/24/18 17:40 18:10 18:40 Temperature Pulse Rate 90 94 H 96 H Pulse Rate [ Right] Respiratory 18 18 18 Rate Blood Pressure 100/63 95/51 L 89/43 L Blood Pressure [Right Arm] O2 Sat by Pulse Oximetry (%) 07/24/18 07/24/18 07/24/18 19:00 19:10 19:40 Temperature Pulse Rate 106 H 99 H 98 H Pulse Rate [ Right] Respiratory 20 18 18 Rate Blood Pressure 101/52 L 99/50 L 90/44 L Blood Pressure [Right Arm] O2 Sat by Pulse Oximetry (%) 07/24/18 07/24/18 07/24/18 20:10 20:40 21:00 Temperature Pulse Rate 100 H 98 H 90 Pulse Rate [ Right] Respiratory 18 18 20 Rate Blood Pressure 104/52 L 112/50 L 114/52 L Blood Pressure [Right Arm] O2 Sat by Pulse 98 Oximetry (%) 07/25/18 07/25/18 07/25/18 01:43 07:20 09:00 Temperature 98.1 F 98.2 F Pulse Rate 92 H 98 H Pulse Rate [ Right] Respiratory 20 20 20 Rate Blood Pressure 108/58 L 106/56 L Blood Pressure [Right Arm] O2 Sat by Pulse 98 Oximetry (%) Current Medications Generic Name Dose Route Start Last Admin Trade Name Freq PRN Reason Stop Dose Admin Calcium Acetate 1,334 mg 07/24/18 21:45 07/25/18 09:06 Phoslo - PO 1,334 mg TIDCM IRVIN Administration Heparin Sodium (Porcine) 5,000 unit 07/24/18 22:00 07/25/18 09:06 Heparin - SQ Not Given BID IRVIN Sodium Chloride 250 mls @ 3,000 mls/hr 07/24/18 18:05 07/24/18 18:40 Normal Saline - IV 07/25/18 18:04 3,000 mls/hr PRN PRN Administration Hypotension during Dialysis Potassium Chloride 10 meq in 100 mls @ 100 mls/hr 07/25/18 11:15 Potassium Chloride 10 Meq Premix Ivpb - IVPB 07/25/18 14:14 Q60M IRVIN Vancomycin HCl 125 mg 07/24/18 12:00 07/25/18 06:53 Vancomycin Oral Solution PO 125 mg Q6HPO IRVIN Administration Laboratory Results - last 24 hr 07/24/18 07/24/18 07/24/18 08:30 08:30 18:01 WBC RBC Hgb Hct MCV MCH MCHC RDW Plt Count MPV Absolute Neuts (auto) Neutrophils % Neutrophils % (Manual) 48.0 D Band Neutrophils % 7.8 Lymphocytes % Lymphocytes % (Manual) 24.5 Monocytes % Monocytes % (Manual) 18 H D Eosinophils % Eosinophils % (Manual) 2.0 Basophils % Basophils % (Manual) 0.0 Myelocytes % (Man) 0 D Promyelocytes % (Man) 0 Blast Cells % (Manual) 0 Nucleated RBC % Metamyelocytes 0 Hypochromia 0 Platelet Estimate Decreased Platelet Comment Present Polychromasia 2+ Poikilocytosis 0 Anisocytosis 2+ Microcytosis 2+ Macrocytosis 0 Tear Drop Cells 1+ Ovalocytes 1+ Messi Cells 1+ Acanthocytes (Spur) 1+ Sodium 137 Potassium 2.6 L* Chloride 104 Carbon Dioxide 13 L Anion Gap 20 H BUN 69 H Creatinine 17.7 H* Creat Clearance w eGFR 2.87 POC Glucometer Random Glucose 68 L Lactic Acid 0.7 Calcium 7.0 L Phosphorus 6.8 H Magnesium 2.4 Total Bilirubin 0.4 AST < 3 L ALT 8 L Alkaline Phosphatase 59 Total Protein 5.6 L Albumin 2.6 L 07/24/18 07/24/18 07/24/18 18:01 20:12 20:40 WBC RBC Hgb Hct MCV MCH MCHC RDW Plt Count MPV Absolute Neuts (auto) Neutrophils % Neutrophils % (Manual) Band Neutrophils % Lymphocytes % Lymphocytes % (Manual) Monocytes % Monocytes % (Manual) Eosinophils % Eosinophils % (Manual) Basophils % Basophils % (Manual) Myelocytes % (Man) Promyelocytes % (Man) Blast Cells % (Manual) Nucleated RBC % Metamyelocytes Hypochromia Platelet Estimate Platelet Comment Polychromasia Poikilocytosis Anisocytosis Microcytosis Macrocytosis Tear Drop Cells Ovalocytes [place] Cells Acanthocytes (Spur) Sodium 138 Potassium 3.0 L Chloride 108 H Carbon Dioxide 11 L Anion Gap 19 H BUN 68 H Cancelled 26 H Creatinine 17.1 H* Cancelled 7.2 H Creat Clearance w eGFR 2.99 POC Glucometer Random Glucose 55 L Lactic Acid Calcium 6.6 L* Phosphorus Magnesium Total Bilirubin AST ALT Alkaline Phosphatase Total Protein Albumin 07/25/18 07/25/18 07/25/18 05:30 05:30 10:21 WBC 4.8 RBC 3.00 L Hgb 9.1 L Hct 27.9 L MCV 93.3 MCH 30.3 MCHC 32.5 RDW 15.5 Plt Count 100 L MPV 10.3 Absolute Neuts (auto) 2.2 Neutrophils % 46.1 Neutrophils % (Manual) Band Neutrophils % Lymphocytes % 24.5 Lymphocytes % (Manual) Monocytes % 26.6 H Monocytes % (Manual) Eosinophils % 2.0 Eosinophils % (Manual) Basophils % 0.8 Basophils % (Manual) Myelocytes % (Man) Promyelocytes % (Man) Blast Cells % (Manual) Nucleated RBC % 0 Metamyelocytes Hypochromia Platelet Estimate Platelet Comment Polychromasia Poikilocytosis Anisocytosis Microcytosis Macrocytosis Tear Drop Cells Ovalocytes Messi Cells Acanthocytes (Spur) Sodium 144 Potassium 2.7 L* Chloride 105 Carbon Dioxide 16 L Anion Gap 22 H BUN 32 H Creatinine 9.2 H* Creat Clearance w eGFR 6.11 POC Glucometer 115 Random Glucose 42 L* Lactic Acid Calcium 7.6 L Phosphorus 2.8 Magnesium Total Bilirubin 0.6 AST 4 L ALT < 6 L Alkaline Phosphatase 49 Total Protein 5.0 L Albumin 2.6 L Constitutional: Yes: No Distress, Calm Eyes: Yes: Conjunctiva Clear Neck: Yes: Supple Cardiovascular: Yes: Regular Rate and Rhythm Gastrointestinal: Yes: Normal Bowel Sounds, Soft, tender all areas, not distended Edema: No Integumentary: Yes: Other (history of heel ulcers--- follows at wound care.) Neurological: Yes: Alert Assessment/Plan discussed with patient in detail vancomycin--orally Dialysis as per renal C. difficile precautions ID eval noted wound care eval replace potassium Problem List - Problems (1) Acute diarrhea Code(s): R19.7 - DIARRHEA, UNSPECIFIED (2) Bilateral pressure ulcer of feet Code(s): L89.899 - PRESSURE ULCER OF OTHER SITE, UNSPECIFIED STAGE (3) C. difficile colitis Code(s): A04.72 - ENTEROCOLITIS D/T CLOSTRIDIUM DIFFICILE, NOT SPCF RECUR (4) Chronic diarrhea Code(s): K52.9 - NONINFECTIVE GASTROENTERITIS AND COLITIS, UNSPECIFIED (5) Diabetic foot ulcer Code(s): E11.621 - TYPE 2 DIABETES MELLITUS WITH FOOT ULCER; L97.509 - NON- PRESSURE CHRONIC ULCER OTH PRT UNSP FOOT W UNSP SEVERITY Qualifiers: Diabetic foot ulcer location: heel Diabetes mellitus type: other specified (including JADON) Laterality: unspecified laterality Non-pressure ulcer stage : unspecified non-pressure ulcer stage Qualified Code(s): E13.621 - Other specified diabetes mellitus with foot ulcer; L97.409 - Non-pressure chronic ulcer of unspecified heel and midfoot with unspecified severity (6) ESRD (end stage renal disease) Code(s): N18.6 - END STAGE RENAL DISEASE (7) Generalized weakness Code(s): R53.1 - WEAKNESS (8) Sacral decubitus ulcer Code(s): L89.159 - PRESSURE ULCER OF SACRAL REGION, UNSPECIFIED STAGE
[2018-07-25] MEDS: KCL 10 MEQ IVPB 10 MEQ/100 ML INFUS.BAG IVPB SCH ×3 (11:29→14:29)
[2018-07-25 11:55] LABS: ANISOCYTOSIS 1+; MACROCYTOSIS 1+
[2018-07-25] MEDS ORDERED: PT OWN MED DRAWER 7, Y5N ONE (11:55)
[2018-07-25 11:56] LABS: OVALOCYTE 1+
--- NOTE | 2018-07-25 13:09 | PN ---
Progress Note, Physician History of Present Illness: continues to have dirrhoea clinically comfortable - Current Medication List Current Medications: Active Medications Calcium Acetate (Phoslo -) 1,334 mg PO TIDCM [facility] Last Admin: 07/25/18 11:30 Dose: 1,334 mg Heparin Sodium (Porcine) (Heparin -) 5,000 unit SQ BID [facility] Last Admin: 07/25/18 09:06 Dose: Not Given Sodium Chloride (Normal Saline -) 250 mls @ 3,000 mls/hr IV PRN PRN PRN Reason: Hypotension during Dialysis Stop: 07/25/18 18:04 Last Admin: 07/24/18 18:40 Dose: 3,000 mls/hr Potassium Chloride (Potassium Chloride 10 Meq Premix Ivpb -) 10 meq in 100 mls @ 100 mls/hr IVPB Q60M [facility] Stop: 07/25/18 14:14 Last Admin: 07/25/18 11:29 Dose: 100 mls/hr Vancomycin HCl (Vancomycin Oral Solution) 125 mg PO Q6HPO [facility] Last Admin: 07/25/18 06:53 Dose: 125 mg - Objective Vital Signs: Vital Signs Temperature 98.2 F 07/25/18 07:20 Pulse Rate 70 07/25/18 11:00 Respiratory Rate 20 07/25/18 11:00 Blood Pressure 101/51 L 07/25/18 11:00 O2 Sat by Pulse Oximetry (%) 98 07/25/18 09:00 Constitutional: Yes: No Distress, Calm Cardiovascular: Yes: Regular Rate and Rhythm Respiratory: Yes: Regular, CTA Bilaterally Gastrointestinal: Yes: Normal Bowel Sounds, Soft Musculoskeletal: Yes: WNL Extremities: Yes: Other Neurological: Yes: Alert, Oriented Psychiatric: Yes: Alert, Oriented Labs: CBC, BMP 07/25/18 05:30 07/25/18 05:30 INR, PTT INR 1.01 (0.83-1.09) 07/24/18 08:30 Assessment/Plan Problem List - Problems (1) Acute diarrhea Code(s): R19.7 - DIARRHEA, UNSPECIFIED (2) Bilateral pressure ulcer of feet Code(s): L89.899 - PRESSURE ULCER OF OTHER SITE, UNSPECIFIED STAGE (3) C. difficile colitis Code(s): A04.72 - ENTEROCOLITIS D/T CLOSTRIDIUM DIFFICILE, NOT SPCF RECUR (4) Chronic diarrhea Code(s): K52.9 - NONINFECTIVE GASTROENTERITIS AND COLITIS, UNSPECIFIED (5) Diabetic foot ulcer Code(s): E11.621 - TYPE 2 DIABETES MELLITUS WITH FOOT ULCER; L97.509 - NON- PRESSURE CHRONIC ULCER OTH PRT UNSP FOOT W UNSP SEVERITY Qualifiers: Diabetic foot ulcer location: heel Diabetes mellitus type: other specified (including JADON) Laterality: unspecified laterality Non-pressure ulcer stage : unspecified non-pressure ulcer stage Qualified Code(s): E13.621 - Other specified diabetes mellitus with foot ulcer; L97.409 - Non-pressure chronic ulcer of unspecified heel and midfoot with unspecified severity (6) ESRD (end stage renal disease) Code(s): N18.6 - END STAGE RENAL DISEASE (7) Generalized weakness Code(s): R53.1 - WEAKNESS (8) Sacral decubitus ulcer Code(s): L89.159 - PRESSURE ULCER OF SACRAL REGION, UNSPECIFIED STAGE plan vanco orally to continue monitor dirrhoea if does not improve will need fecal txp monitor electrolytes rest as per the team
[2018-07-25] MEDS ORDERED: SODIUM CHLORIDE 250 ML IV PRN (13:17)
--- NOTE | 2018-07-25 13:17 | PN ---
Progress Note, Physician History of Present Illness: Pt seen and examined at bedside. He is awake and alert. He feels that the diarrhea is a little better. he denies shortness of breath. - Current Medication List Current Medications: Active Medications Calcium Acetate (Phoslo -) 1,334 mg PO TIDCM [facility] Last Admin: 07/25/18 11:30 Dose: 1,334 mg Heparin Sodium (Porcine) (Heparin -) 5,000 unit SQ BID [facility] Last Admin: 07/25/18 09:06 Dose: Not Given Sodium Chloride (Normal Saline -) 250 mls @ 3,000 mls/hr IV PRN PRN PRN Reason: Hypotension during Dialysis Stop: 07/25/18 18:04 Last Admin: 07/24/18 18:40 Dose: 3,000 mls/hr Potassium Chloride (Potassium Chloride 10 Meq Premix Ivpb -) 10 meq in 100 mls @ 100 mls/hr IVPB Q60M [facility] Stop: 07/25/18 14:14 Last Admin: 07/25/18 11:29 Dose: 100 mls/hr Vancomycin HCl (Vancomycin Oral Solution) 125 mg PO Q6HPO [facility] Last Admin: 07/25/18 06:53 Dose: 125 mg - Objective Vital Signs: Vital Signs Temperature 98.2 F 07/25/18 07:20 Pulse Rate 70 07/25/18 11:00 Respiratory Rate 20 07/25/18 11:00 Blood Pressure 101/51 L 07/25/18 11:00 O2 Sat by Pulse Oximetry (%) 98 07/25/18 09:00 Constitutional: Yes: Calm Eyes: Yes: Conjunctiva Clear HENT: Yes: Atraumatic Cardiovascular: Yes: S1, S2 Respiratory: Yes: CTA Bilaterally Gastrointestinal: Yes: Soft Genitourinary: Yes: WNL Musculoskeletal: Yes: WNL Edema: LLE: Trace, RLE: Trace Neurological: Yes: Oriented Psychiatric: Yes: Oriented Labs: CBC, BMP 07/25/18 05:30 07/25/18 05:30 INR, PTT INR 1.01 (0.83-1.09) 07/24/18 08:30 Assessment/Plan Current Medications Generic Name Dose Route Start Last Admin Trade Name Freq PRN Reason Stop Dose Admin Calcium Acetate 1,334 mg 07/24/18 21:45 07/25/18 11:30 Phoslo - PO 1,334 mg TIDCM IRVIN Administration Heparin Sodium (Porcine) 5,000 unit 07/24/18 22:00 07/25/18 09:06 Heparin - SQ Not Given BID IRVIN Sodium Chloride 250 mls @ 3,000 mls/hr 07/24/18 18:05 07/24/18 18:40 Normal Saline - IV 07/25/18 18:04 3,000 mls/hr PRN PRN Administration Hypotension during Dialysis Potassium Chloride 10 meq in 100 mls @ 100 mls/hr 07/25/18 11:15 07/25/18 11: 29 Potassium Chloride 10 Meq Premix Ivpb - IVPB 07/25/18 14:14 100 mls/hr Q60M IRVIN Administration Vancomycin HCl 125 mg 07/24/18 12:00 07/25/18 06:53 Vancomycin Oral Solution PO 125 mg Q6HPO IRVIN Administration Impression 1. ESRD 2. anemia 3. hypokalemia 4. Hep B 5. diarrhea 6. depression 7. non-compliance with HD 8. acidosis - metabolic 9. hypocalcemia Plan - replace potassium - HD tomorrow - monitor lytes - 3 k bath on HD - ID follow up - will follow
[2018-07-25 18:24] LABS: ANION GAP 12 MMOL/L (8-16); BLOOD UREA NITROGEN 33 mg/dL (7-18); CALCIUM 7.9 mg/dL (8.5-10.1); CHLORIDE 107 mmol/L (98-107); CO2 23 mmol/L (21-32); GLUCOSE,RANDOM 91 mg/dL (74-106); POTASSIUM 3.2 mmol/L (3.5-5.1); SODIUM 141 mmol/L (136-145)
[2018-07-25 18:56] LABS: CREATININE 10.1 mg/dL (0.55-1.3)
[2018-07-25] MEDS: POTASSIUM CHLORIDE TABS 20 MEQ TABLET.ER (FP) PO ONE ×2 (23:22→23:26)
[2018-07-26] MEDS: VANCOMYCIN 250 MG/5 ML ORAL SOLUTION PO SCH ×4 (00:15→17:13)
[2018-07-26 08:09] LABS: HBSAG SCREEN Negative (Negative); HEP B CORE AB, TOT Positive (Negative)
[2018-07-26] MEDS: CALCIUM ACETATE 667 MG CAPSULE (FP) PO SCH ×3 (08:16→17:13)
--- NOTE | 2018-07-26 09:00 | CONSULT ---
- Consultation REQUESTING PROVIDER: CONSULT REQUEST: We have been asked to surgically evaluate this patient for bilateral heel wounds and sacral decub PCP:Heydi Sampson HISTORY OF PRESENT ILLNESS: 52yo M known to the wound care clinic is currently admitted the hospital for "stomach issues", vascular was consulted wound care orders. Pt has history of chronic heel and sacral wounds. Pt is wheelchair bound/non ambulatory. Pt has been treating the wounds with santyl and VNS dressing changes. Pt denies any fever, chills, n/v. Pt refuses to have his sacral area examined and when questioned about it states "everything is fine there, no need to exam it" PMHx: ESRD, Hep B, DM Home Medications Medication Instructions Recorded Unobtainable 07/24/18 Allergies Allergy/AdvReac Type Severity Reaction Status Date / Time levofloxacin [From Levaquin] Allergy Mild Rash Verified 07/24/18 08:07 meropenem Allergy Verified 07/24/18 08:07 vancomycin Allergy Verified 07/24/18 08:07 amino Allergy Intermediate Rash Uncoded 07/24/18 08:07 PHYSICAL EXAM: GENERAL: Awake, alert, and fully oriented, in no acute distress. HEAD: Normal with no signs of trauma. EYES: PERRL, sclera anicteric, conjunctiva clear. NECK: Normal ROM LUNGS: No accessory muscle use. HEART: Regular rate and rhythm. BACK: REFUSED EXAM LOWER EXTREMITIES: 2+ pulses, warm, well-perfused. Left heel shows 4 cm ulceration with fibrinous tissues, serous drainage. Right heel, 6 cm ulceration with fibrinous tissues serous drainage. NEUROLOGICAL: Normal speech, gait not observed. PSYCH: Cooperative. Good eye contact. Appropriate mood and affect. SKIN: Warm, dry, normal turgor, no rashes or lesions noted. Vital Signs Temperature 98.6 F 07/26/18 06:00 Pulse Rate 95 H 07/26/18 06:00 Respiratory Rate 20 07/26/18 06:00 Blood Pressure 133/75 07/26/18 06:00 O2 Sat by Pulse Oximetry (%) 99 07/25/18 21:00 Lab Results WBC 4.8 K/mm3 (4.0-10.0) 07/25/18 05:30 RBC 3.00 M/mm3 (4.00-5.60) L 07/25/18 05:30 Hgb 9.1 GM/dL (11.7-16.9) L 07/25/18 05:30 Hct 27.9 % (35.4-49) L 07/25/18 05:30 MCV 93.3 fl (80-96) 07/25/18 05:30 MCHC 32.5 g/dl (32.0-35.9) 07/25/18 05:30 RDW 15.5 % (11.9-15.9) 07/25/18 05:30 Plt Count 100 K/MM3 (134-434) L 07/25/18 05:30 Sodium 141 mmol/L (136-145) 07/25/18 16:00 Potassium 3.2 mmol/L (3.5-5.1) L 07/25/18 16:00 Chloride 107 mmol/L (98-107) 07/25/18 16:00 Carbon Dioxide 23 mmol/L (21-32) 07/25/18 16:00 Anion Gap 12 MMOL/L (8-16) 07/25/18 16:00 BUN 33 mg/dL (7-18) H 07/25/18 16:00 Creatinine 10.1 mg/dL (0.55-1.3) H* 07/25/18 16:00 Random Glucose 91 mg/dL (74-106) 07/25/18 16:00 Calcium 7.9 mg/dL (8.5-10.1) L 07/25/18 16:00 INR 1.01 (0.83-1.09) 07/24/18 08:30 Problem List - Problems (1) Bilateral pressure ulcer of feet Assessment/Plan: Plan -Explained to pt the importance of examining sacral area, and the danger of missing worsening wound, pt insists that he has no issues with sacral area. -recommend santyl and leg roll to elevate heels -frequent bed turning and air bed -follow up with wound care clinic as outpatient Code(s): L89.899 - PRESSURE ULCER OF OTHER SITE, UNSPECIFIED STAGE
--- NOTE | 2018-07-26 09:04 | PN ---
GI Progress Note Subjective: States diarrhea has let up a bit Some improvement in frequency reported by nursing as well Mr. Avalos also states abdominal pain has improved and states being hungry - Objective Vital Signs: Vital Signs Temperature 98.6 F 07/26/18 06:00 Pulse Rate 95 H 07/26/18 06:00 Respiratory Rate 20 07/26/18 06:00 Blood Pressure 133/75 07/26/18 06:00 O2 Sat by Pulse Oximetry (%) 99 07/25/18 21:00 Constitutional: Calm Eyes: No: Sclera Icterus Cardiovascular: Yes: Regular Rate and Rhythm Respiratory: Yes: CTA Bilaterally Gastrointestinal Inspection: No: Distention ...Auscultate: Yes: Normoactive Bowel Sounds ...Palpate: No: Hepatomegaly, Splenomegaly, Tenderness ...Percussion: No: Tympanitic Neurological: Yes: Alert Labs: CBC, BMP 07/25/18 05:30 07/25/18 16:00 INR, PTT INR 1.01 (0.83-1.09) 07/24/18 08:30 Problem List - Problems (1) C. difficile colitis Assessment/Plan: Recurrent C. Diff. About 2 days now in PO Vanco and showing improvement. Continue PO vancocin 125mg PO q 6 hours for 14 days. If continued improvement the vancomycin should be tapered as noted in initial consult. Advance diet ID following Code(s): A04.72 - ENTEROCOLITIS D/T CLOSTRIDIUM DIFFICILE, NOT SPCF RECUR
[2018-07-26] MEDS: HEPARIN NA (PORCINE) 5,000 UNITS/ML 1ML VIAL SQ SCH ×2 (09:56→21:49)
--- NOTE | 2018-07-26 10:41 | PN ---
Progress Note, Physician History of Present Illness: Pt seen and examined at bedside. He is awake and alert. He denies shortness of breath. He still has diarrhea but its better. - Current Medication List Current Medications: Active Medications Calcium Acetate (Phoslo -) 1,334 mg PO TIDCM [facility] Last Admin: 07/26/18 08:16 Dose: 1,334 mg Epoetin Arjun (Epogen -) 5,000 unit IVPUSH ONCE ONE Stop: 07/26/18 13:18 Heparin Sodium (Porcine) (Heparin -) 5,000 unit SQ BID [facility] Last Admin: 07/26/18 09:56 Dose: Not Given Sodium Chloride (Normal Saline -) 250 mls @ 3,000 mls/hr IV PRN PRN PRN Reason: Hypotension during Dialysis Stop: 07/26/18 13:17 Vancomycin HCl (Vancomycin Oral Solution) 125 mg PO Q6HPO [facility] Last Admin: 07/26/18 06:39 Dose: 125 mg - Objective Vital Signs: Vital Signs Temperature 98.9 F 07/26/18 09:58 Pulse Rate 98 H 07/26/18 09:58 Respiratory Rate 20 07/26/18 09:58 Blood Pressure 121/69 07/26/18 09:58 O2 Sat by Pulse Oximetry (%) 99 07/25/18 21:00 Constitutional: Yes: Calm Eyes: Yes: Conjunctiva Clear HENT: Yes: Atraumatic Neck: Yes: Supple Cardiovascular: Yes: S1, S2 Respiratory: Yes: CTA Bilaterally Gastrointestinal: Yes: Normal Bowel Sounds, Soft Genitourinary: Yes: WNL Musculoskeletal: Yes: WNL Edema: Yes Edema: LLE: Trace, RLE: Trace Neurological: Yes: Oriented Psychiatric: Yes: Oriented Labs: CBC, BMP 07/25/18 05:30 07/25/18 16:00 INR, PTT INR 1.01 (0.83-1.09) 07/24/18 08:30 Assessment/Plan Current Medications Generic Name Dose Route Start Last Admin Trade Name Freq PRN Reason Stop Dose Admin Calcium Acetate 1,334 mg 07/24/18 21:45 07/26/18 08:16 Phoslo - PO 1,334 mg TIDCM [facility] Administration Epoetin Arjun 5,000 unit 07/26/18 13:17 Epogen - IVPUSH 11/28/18 13:18 ONCE ONE Heparin Sodium (Porcine) 5,000 unit 07/24/18 22:00 07/26/18 09:56 Heparin - SQ Not Given BID [facility] Sodium Chloride 250 mls @ 3,000 mls/hr 07/25/18 13:17 Normal Saline - IV 07/26/18 13:17 PRN PRN Hypotension during Dialysis Vancomycin HCl 125 mg 07/24/18 12:00 07/26/18 06:39 Vancomycin Oral Solution PO 125 mg Q6HPO [facility] Administration Impression 1. ESRD 2. anemia 3. hypokalemia 4. Hep B 5. diarrhea 6. depression 7. non-compliance with HD 8. acidosis - metabolic 9. hypocalcemia Plan - HD today - 3 k bath - ID follow up for diarrhea and for hep B, he was on tenofivir - monitor lytes - check potassium - ordered supplements last night - diet being advanced today - will follow
[2018-07-26] MEDS ORDERED: EPOETIN ALFA 2,000 UNIT/1 ML VIAL IVPUSH ONE (11:00)
[2018-07-26] MEDS ORDERED: PT OWN MED DRAWER 7, Y5N ONE (11:35)
[2018-07-26 11:47] LABS: HEMATOCRIT 28.7 % (35.4-49); HEMOGLOBIN 9.3 GM/dL (11.7-16.9); MCH 30.3 pg (25.7-33.7); MCHC 32.4 g/dl (32.0-35.9); MEAN CELL VOLUME 93.4 fl (80-96); MEAN PLT VOLUME 10.1 fl (7.5-11.1); PLATELET COUNT 112 K/MM3 (134-434); RBC 3.07 M/mm3 (4.00-5.60); RDW 15.5 % (11.9-15.9); WHITE BLOOD COUNT 5.3 K/mm3 (4.0-10.0)
[2018-07-26 12:20] LABS: ANION GAP 13 MMOL/L (8-16); BLOOD UREA NITROGEN 37 mg/dL (7-18); CHLORIDE 107 mmol/L (98-107); CO2 23 mmol/L (21-32); GLUCOSE,RANDOM 97 mg/dL (74-106); PHOSPHOROUS 2.9 mg/dL (2.5-4.9); SODIUM 142 mmol/L (136-145)
[2018-07-26 12:24] LABS: CREATININE 10.8 mg/dL (0.55-1.3)
[2018-07-26] MEDS ORDERED: POTASSIUM CHLORIDE TABS 20 MEQ TABLET.ER (FP) PO ONE (12:44)
[2018-07-26] MEDS: COLLAGENASE CLOSTRIDIUM HIST. 30 GRAMS TUBE TP SCH (13:10)
--- NOTE | 2018-07-26 13:13 | PN ---
Progress Note (short form) - Note Progress Note: loose stools less no abd pain feels hungry being dialysed Vital Signs - 24 hr 07/25/18 07/25/18 07/25/18 14:00 17:00 21:00 Temperature 98.5 F 98.5 F 98.9 F Pulse Rate 80 99 H 98 H Respiratory 20 20 20 Rate Blood Pressure 134/55 L 125/65 116/70 O2 Sat by Pulse 99 Oximetry (%) 07/26/18 07/26/18 07/26/18 06:00 09:00 09:58 Temperature 98.6 F 98.9 F Pulse Rate 95 H 98 H Respiratory 20 20 Rate Blood Pressure 133/75 121/69 O2 Sat by Pulse 99 Oximetry (%) 07/26/18 07/26/18 07/26/18 10:20 10:30 11:00 Temperature Pulse Rate 88 89 98 H Respiratory 18 18 18 Rate Blood Pressure 131/69 144/73 137/69 O2 Sat by Pulse Oximetry (%) 07/26/18 07/26/18 07/26/18 11:30 12:00 12:30 Temperature Pulse Rate 101 H 98 H 96 H Respiratory 18 18 18 Rate Blood Pressure 118/56 L 114/52 L 117/56 L O2 Sat by Pulse Oximetry (%) 07/26/18 13:00 Temperature Pulse Rate 96 H Respiratory 18 Rate Blood Pressure 123/62 O2 Sat by Pulse Oximetry (%) Current Medications Generic Name Dose Route Start Last Admin Trade Name Freq PRN Reason Stop Dose Admin Calcium Acetate 1,334 mg 07/24/18 21:45 07/26/18 12:14 Phoslo - PO 1,334 mg TIDCM [facility] Administration Collagenase 1 applic 07/26/18 11:45 Santyl - TP DAILY [facility] Heparin Sodium (Porcine) 5,000 unit 07/24/18 22:00 07/26/18 09:56 Heparin - SQ Not Given BID [facility] Vancomycin HCl 125 mg 07/24/18 12:00 07/26/18 12:14 Vancomycin Oral Solution PO 125 mg Q6HPO [facility] Administration Laboratory Results - last 24 hr 07/24/18 07/24/18 07/25/18 18:01 18:01 16:00 WBC RBC Hgb Hct MCV MCH MCHC RDW Plt Count MPV Sodium 141 Potassium 3.2 L Chloride 107 Carbon Dioxide 23 Anion Gap 12 BUN 33 H Creatinine 10.1 H* Creat Clearance w eGFR 5.48 Random Glucose 91 Calcium 7.9 L Phosphorus Magnesium Hepatitis A Ab Total Negative Hep Bs Antigen Negative Hep Bs Antibody Non reactive Hep B Core Total Ab Positive H Hep C Ab Diagnostic 0.1 07/26/18 07/26/18 10:30 10:30 WBC 5.3 RBC 3.07 L Hgb 9.3 L Hct 28.7 L MCV 93.4 MCH 30.3 MCHC 32.4 RDW 15.5 Plt Count 112 L MPV 10.1 Sodium 142 Potassium 3.0 L Chloride 107 Carbon Dioxide 23 Anion Gap 13 BUN 37 H Creatinine 10.8 H* Creat Clearance w eGFR 5.08 Random Glucose 97 Calcium 8.0 L Phosphorus 2.9 Magnesium 2.0 Hepatitis A Ab Total Hep Bs Antigen Hep Bs Antibody Hep B Core Total Ab Hep C Ab Diagnostic Constitutional: Yes: No Distress, Calm Eyes: Yes: Conjunctiva Clear Neck: Yes: Supple Cardiovascular: Yes: Regular Rate and Rhythm Gastrointestinal: Yes: Normal Bowel Sounds, Soft, tender all areas, not distended Edema: No Integumentary: Yes: Other (history of heel ulcers--- follows at wound care.) Neurological: Yes: Alert Assessment/Plan discussed with patient vancomycin--orally Dialysis as per renal C. difficile precautions spoke with ID wound care eval replace potassium clinically improving advance diet per GI Problem List - Problems (1) Acute diarrhea Code(s): R19.7 - DIARRHEA, UNSPECIFIED (2) Bilateral pressure ulcer of feet Code(s): L89.899 - PRESSURE ULCER OF OTHER SITE, UNSPECIFIED STAGE (3) C. difficile colitis Code(s): A04.72 - ENTEROCOLITIS D/T CLOSTRIDIUM DIFFICILE, NOT SPCF RECUR (4) Chronic diarrhea Code(s): K52.9 - NONINFECTIVE GASTROENTERITIS AND COLITIS, UNSPECIFIED (5) Diabetic foot ulcer Code(s): E11.621 - TYPE 2 DIABETES MELLITUS WITH FOOT ULCER; L97.509 - NON- PRESSURE CHRONIC ULCER OTH PRT UNSP FOOT W UNSP SEVERITY Qualifiers: Diabetic foot ulcer location: heel Diabetes mellitus type: other specified (including JADON) Laterality: unspecified laterality Non-pressure ulcer stage : unspecified non-pressure ulcer stage Qualified Code(s): E13.621 - Other specified diabetes mellitus with foot ulcer; L97.409 - Non-pressure chronic ulcer of unspecified heel and midfoot with unspecified severity (6) ESRD (end stage renal disease) Code(s): N18.6 - END STAGE RENAL DISEASE (7) Generalized weakness Code(s): R53.1 - WEAKNESS (8) Sacral decubitus ulcer Code(s): L89.159 - PRESSURE ULCER OF SACRAL REGION, UNSPECIFIED STAGE
--- NOTE | 2018-07-26 13:30 | PN ---
Progress Note, Physician History of Present Illness: patient stable says dirrhoea is less feels better - Current Medication List Current Medications: Active Medications Calcium Acetate (Phoslo -) 1,334 mg PO TIDCM [facility] Last Admin: 07/26/18 12:14 Dose: 1,334 mg Collagenase (Santyl -) 1 applic TP DAILY [facility] Heparin Sodium (Porcine) (Heparin -) 5,000 unit SQ BID [facility] Last Admin: 07/26/18 09:56 Dose: Not Given Vancomycin HCl (Vancomycin Oral Solution) 125 mg PO Q6HPO [facility] Last Admin: 07/26/18 12:14 Dose: 125 mg - Objective Vital Signs: Vital Signs Temperature 98.9 F 07/26/18 09:58 Pulse Rate 96 H 07/26/18 13:00 Respiratory Rate 18 07/26/18 13:00 Blood Pressure 123/62 07/26/18 13:00 O2 Sat by Pulse Oximetry (%) 99 07/26/18 09:00 Constitutional: Yes: No Distress, Calm Cardiovascular: Yes: Regular Rate and Rhythm Respiratory: Yes: Regular, CTA Bilaterally Gastrointestinal: Yes: Normal Bowel Sounds, Soft Musculoskeletal: Yes: WNL Extremities: Yes: Other Neurological: Yes: Alert, Oriented Psychiatric: Yes: Alert Labs: CBC, BMP 07/26/18 10:30 07/26/18 10:30 INR, PTT INR 1.01 (0.83-1.09) 07/24/18 08:30 Assessment/Plan Problem List - Problems (1) Acute diarrhea Code(s): R19.7 - DIARRHEA, UNSPECIFIED (2) Bilateral pressure ulcer of feet Code(s): L89.899 - PRESSURE ULCER OF OTHER SITE, UNSPECIFIED STAGE (3) C. difficile colitis Code(s): A04.72 - ENTEROCOLITIS D/T CLOSTRIDIUM DIFFICILE, NOT SPCF RECUR (4) Chronic diarrhea Code(s): K52.9 - NONINFECTIVE GASTROENTERITIS AND COLITIS, UNSPECIFIED (5) Diabetic foot ulcer Code(s): E11.621 - TYPE 2 DIABETES MELLITUS WITH FOOT ULCER; L97.509 - NON- PRESSURE CHRONIC ULCER OTH PRT UNSP FOOT W UNSP SEVERITY Qualifiers: Diabetic foot ulcer location: heel Diabetes mellitus type: other specified (including JADON) Laterality: unspecified laterality Non-pressure ulcer stage : unspecified non-pressure ulcer stage Qualified Code(s): E13.621 - Other specified diabetes mellitus with foot ulcer; L97.409 - Non-pressure chronic ulcer of unspecified heel and midfoot with unspecified severity (6) ESRD (end stage renal disease) Code(s): N18.6 - END STAGE RENAL DISEASE (7) Generalized weakness Code(s): R53.1 - WEAKNESS (8) Sacral decubitus ulcer Code(s): L89.159 - PRESSURE ULCER OF SACRAL REGION, UNSPECIFIED STAGE plan continue vanco orally continue to monitor for dirrhoea rest as per the team hydration
[2018-07-26] MEDS ORDERED: ACETAMINOPHEN 325 MG TABLET (FP) PO ONE (21:14)
[2018-07-27] MEDS: VANCOMYCIN 250 MG/5 ML ORAL SOLUTION PO SCH ×4 (00:04→17:33)
[2018-07-27 08:24] LABS: ANION GAP 10 MMOL/L (8-16); BLOOD UREA NITROGEN 19 mg/dL (7-18); CALCIUM 8.6 mg/dL (8.5-10.1); CHLORIDE 104 mmol/L (98-107); CO2 27 mmol/L (21-32); CREATININE 6.7 mg/dL (0.55-1.3); GLUCOSE,RANDOM 94 mg/dL (74-106); SODIUM 141 mmol/L (136-145)
[2018-07-27 08:29] LABS: POTASSIUM 2.8 mmol/L (3.5-5.1)
[2018-07-27] MEDS: CALCIUM ACETATE 667 MG CAPSULE (FP) PO SCH ×3 (09:01→17:33)
[2018-07-27] MEDS: HEPARIN NA (PORCINE) 5,000 UNITS/ML 1ML VIAL SQ SCH ×2 (10:02→21:42)
[2018-07-27] MEDS: COLLAGENASE CLOSTRIDIUM HIST. 30 GRAMS TUBE TP SCH (10:05)
--- NOTE | 2018-07-27 10:31 | PN ---
Progress Note (short form) - Note Progress Note: has loose stools pt frustrated, becoming angry with staff and refusing care he did not allow wound care to check his sacral area abd sore Vital Signs - 24 hr 07/26/18 07/26/18 07/26/18 11:00 11:30 12:00 Temperature Pulse Rate 98 H 101 H 98 H Respiratory 18 18 18 Rate Blood Pressure 137/69 118/56 L 114/52 L 07/26/18 07/26/18 07/26/18 12:30 13:00 13:30 Temperature Pulse Rate 96 H 96 H 96 H Respiratory 18 18 18 Rate Blood Pressure 117/56 L 123/62 123/61 07/26/18 07/26/18 07/26/18 13:50 14:00 17:00 Temperature 98.1 F 99.2 F Pulse Rate 118 H 97 H 97 H Respiratory 18 20 Rate Blood Pressure 139/76 123/62 146/74 07/27/18 09:00 Temperature Pulse Rate 82 Respiratory 18 Rate Blood Pressure 112/56 L Current Medications Generic Name Dose Route Start Last Admin Trade Name Freq PRN Reason Stop Dose Admin Calcium Acetate 1,334 mg 07/24/18 21:45 07/27/18 09:01 Phoslo - PO Not Given TIDCM [facility] Collagenase 1 applic 07/26/18 11:45 07/27/18 10:05 Santyl - TP Not Given DAILY [facility] Heparin Sodium (Porcine) 5,000 unit 07/24/18 22:00 07/27/18 10:02 Heparin - SQ Not Given BID [facility] Potassium Chloride 10 meq in 100 mls @ 100 mls/hr 07/27/18 10:45 Potassium Chloride 10 Meq Premix Ivpb - IVPB 07/27/18 12:44 Q60M [facility] Vancomycin HCl 125 mg 07/24/18 12:00 07/27/18 06:46 Vancomycin Oral Solution PO 125 mg Q6HPO [facility] Administration Laboratory Results - last 24 hr 07/26/18 07/26/18 07/27/18 10:30 10:30 05:30 WBC 5.3 RBC 3.07 L Hgb 9.3 L Hct 28.7 L MCV 93.4 MCH 30.3 MCHC 32.4 RDW 15.5 Plt Count 112 L MPV 10.1 Sodium 142 141 Potassium 3.0 L 2.8 L* Chloride 107 104 Carbon Dioxide 23 27 Anion Gap 13 10 BUN 37 H 19 H Creatinine 10.8 H* 6.7 H Creat Clearance w eGFR 5.08 8.81 Random Glucose 97 94 Calcium 8.0 L 8.6 Phosphorus 2.9 Magnesium 2.0 Constitutional: Yes: No Distress, Calm Eyes: Yes: Conjunctiva Clear Neck: Yes: Supple Cardiovascular: Yes: Regular Rate and Rhythm Gastrointestinal: Yes: Normal Bowel Sounds, Soft, tender all areas, not distended Edema: No Integumentary: Yes: Other (history of heel ulcers--- follows at wound care.) Neurological: Yes: Alert Assessment/Plan discussed with patient to be compliant with care he is afraid to eat-- will give soft diet-- BRAT diet vancomycin--orally Dialysis as per renal C. difficile precautions wound care eval noted replace potassium-- iv clinically improving Problem List - Problems (1) Acute diarrhea Code(s): R19.7 - DIARRHEA, UNSPECIFIED (2) Bilateral pressure ulcer of feet Code(s): L89.899 - PRESSURE ULCER OF OTHER SITE, UNSPECIFIED STAGE (3) C. difficile colitis Code(s): A04.72 - ENTEROCOLITIS D/T CLOSTRIDIUM DIFFICILE, NOT SPCF RECUR (4) Chronic diarrhea Code(s): K52.9 - NONINFECTIVE GASTROENTERITIS AND COLITIS, UNSPECIFIED (5) Diabetic foot ulcer Code(s): E11.621 - TYPE 2 DIABETES MELLITUS WITH FOOT ULCER; L97.509 - NON- PRESSURE CHRONIC ULCER OTH PRT UNSP FOOT W UNSP SEVERITY Qualifiers: Diabetic foot ulcer location: heel Diabetes mellitus type: other specified (including JADON) Laterality: unspecified laterality Non-pressure ulcer stage : unspecified non-pressure ulcer stage Qualified Code(s): E13.621 - Other specified diabetes mellitus with foot ulcer; L97.409 - Non-pressure chronic ulcer of unspecified heel and midfoot with unspecified severity (6) ESRD (end stage renal disease) Code(s): N18.6 - END STAGE RENAL DISEASE (7) Generalized weakness Code(s): R53.1 - WEAKNESS (8) Sacral decubitus ulcer Code(s): L89.159 - PRESSURE ULCER OF SACRAL REGION, UNSPECIFIED STAGE
[2018-07-27] MEDS: KCL 10 MEQ IVPB 10 MEQ/100 ML INFUS.BAG IVPB SCH ×5 (11:26→16:13)
[2018-07-27] MEDS ORDERED: SODIUM CHLORIDE 250 ML IV PRN (12:50)
[2018-07-27] MEDS ORDERED: POTASSIUM CHLORIDE TABS 20 MEQ TABLET.ER (FP) PO ONE (13:15)
--- NOTE | 2018-07-27 14:37 | PN ---
Progress Note, Physician History of Present Illness: started having increased dirrhoea from the evening says it is worse - Current Medication List Current Medications: Active Medications Calcium Acetate (Phoslo -) 1,334 mg PO TIDCM [facility] Last Admin: 07/27/18 12:58 Dose: 1,334 mg Collagenase (Santyl -) 1 applic TP DAILY [facility] Last Admin: 07/27/18 10:05 Dose: Not Given Heparin Sodium (Porcine) (Heparin -) 5,000 unit SQ BID [facility] Last Admin: 07/27/18 10:02 Dose: Not Given Potassium Chloride (Potassium Chloride 10 Meq Premix Ivpb -) 10 meq in 100 mls @ 100 mls/hr IVPB Q60M [facility] Stop: 07/27/18 16:44 Last Admin: 07/27/18 13:45 Dose: 100 mls/hr Vancomycin HCl (Vancomycin Oral Solution) 125 mg PO Q6HPO [facility] Last Admin: 07/27/18 12:24 Dose: 125 mg - Objective Vital Signs: Vital Signs Temperature 99.2 F 07/26/18 17:00 Pulse Rate 82 07/27/18 09:00 Respiratory Rate 18 07/27/18 09:00 Blood Pressure 112/56 L 07/27/18 09:00 O2 Sat by Pulse Oximetry (%) 99 07/26/18 09:00 Constitutional: Yes: No Distress, Calm HENT: Yes: Atraumatic, Normocephalic Cardiovascular: Yes: Regular Rate and Rhythm Respiratory: Yes: Regular, CTA Bilaterally Gastrointestinal: Yes: Normal Bowel Sounds, Soft Musculoskeletal: Yes: WNL Extremities: Yes: Other Neurological: Yes: Alert, Oriented Psychiatric: Yes: Alert, Oriented Labs: CBC, BMP 07/26/18 10:30 07/27/18 05:30 INR, PTT INR 1.01 (0.83-1.09) 07/24/18 08:30 Assessment/Plan Problem List - Problems (1) Acute diarrhea Code(s): R19.7 - DIARRHEA, UNSPECIFIED (2) Bilateral pressure ulcer of feet Code(s): L89.899 - PRESSURE ULCER OF OTHER SITE, UNSPECIFIED STAGE (3) C. difficile colitis Code(s): A04.72 - ENTEROCOLITIS D/T CLOSTRIDIUM DIFFICILE, NOT SPCF RECUR (4) Chronic diarrhea Code(s): K52.9 - NONINFECTIVE GASTROENTERITIS AND COLITIS, UNSPECIFIED (5) Diabetic foot ulcer Code(s): E11.621 - TYPE 2 DIABETES MELLITUS WITH FOOT ULCER; L97.509 - NON- PRESSURE CHRONIC ULCER OTH PRT UNSP FOOT W UNSP SEVERITY Qualifiers: Diabetic foot ulcer location: heel Diabetes mellitus type: other specified (including JADON) Laterality: unspecified laterality Non-pressure ulcer stage : unspecified non-pressure ulcer stage Qualified Code(s): E13.621 - Other specified diabetes mellitus with foot ulcer; L97.409 - Non-pressure chronic ulcer of unspecified heel and midfoot with unspecified severity (6) ESRD (end stage renal disease) Code(s): N18.6 - END STAGE RENAL DISEASE (7) Generalized weakness Code(s): R53.1 - WEAKNESS (8) Sacral decubitus ulcer Code(s): L89.159 - PRESSURE ULCER OF SACRAL REGION, UNSPECIFIED STAGE plan continue vanco orally continue to monitor for dirrhoea dirrhoea does not improve will need to switch to fidoximicin again patient needs fecal transplant i have discussed that with the patient and he is agreeable
--- NOTE | 2018-07-27 15:33 | PN ---
Progress Note, Physician History of Present Illness: Pt seen and examined at bedside. He still complains of diarrhea. He denies shortness of breath or palpitations. - Current Medication List Current Medications: Active Medications Calcium Acetate (Phoslo -) 1,334 mg PO TIDCM [facility]S [facility] Last Admin: 07/27/18 12:58 Dose: 1,334 mg Collagenase (Santyl -) 1 applic TP DAILY [facility] B[facility]S [facility] Last Admin: 07/27/18 10:05 Dose: Not Given Heparin Sodium (Porcine) (Heparin -) 5,000 unit SQ BID [facility] Last Admin: 07/27/18 10:02 Dose: Not Given Potassium Chloride (Potassium Chloride 10 Meq Premix Ivpb -) 10 meq in 100 mls @ 100 mls/hr IVPB Q60M [facility] 234 BEDS AT [facility] Stop: 07/27/18 16:44 Last Admin: 07/27/18 14:53 Dose: 100 mls/hr Vancomycin HCl (Vancomycin Oral Solution) 125 mg PO Q6HPO [facility] 234 BEDS [facility] Last Admin: 07/27/18 12:24 Dose: 125 mg - Objective Vital Signs: Vital Signs Temperature 98.4 F 07/27/18 14:00 Pulse Rate 82 07/27/18 09:00 Respiratory Rate 18 07/27/18 09:00 Blood Pressure 129/72 07/27/18 14:00 O2 Sat by Pulse Oximetry (%) 99 07/26/18 09:00 Constitutional: Yes: Calm Eyes: Yes: Conjunctiva Clear HENT: Yes: Atraumatic Neck: Yes: Supple Cardiovascular: Yes: S1, S2 Respiratory: Yes: CTA Bilaterally Gastrointestinal: Yes: Soft Genitourinary: Yes: WNL Musculoskeletal: Yes: Muscle Weakness Edema: No Neurological: Yes: Oriented Psychiatric: Yes: Oriented Labs: CBC, BMP 07/26/18 10:30 07/27/18 05:30 INR, PTT INR 1.01 (0.83-1.09) 07/24/18 08:30 Assessment/Plan Current Medications Generic Name Dose Route Start Last Admin Trade Name Freq PRN Reason Stop Dose Admin Calcium Acetate 1,334 mg 07/24/18 21:45 07/27/18 12:58 Phoslo - PO 1,334 mg TIDCM [facility] 234 B[facility]S [facility] Administration Collagenase 1 applic 07/26/18 11:45 07/27/18 10:05 Santyl - TP Not Given DAILY [facility] 234 BEDS [facility] Heparin Sodium (Porcine) 5,000 unit 07/24/18 22:00 07/27/18 10:02 Heparin - SQ Not Given BID [facility] Potassium Chloride 10 meq in 100 mls @ 100 mls/hr 07/27/18 13:45 07/27/18 14: 53 Potassium Chloride 10 Meq Premix Ivpb - IVPB 07/27/18 16:44 100 mls/hr Q60M [facility] Administration Vancomycin HCl 125 mg 07/24/18 12:00 07/27/18 12:24 Vancomycin Oral Solution PO 125 mg Q6HPO [facility] Administration Impression 1. ESRD 2. anemia 3. hypokalemia 4. Hep B 5. diarrhea 6. depression 7. non-compliance with HD 8. acidosis - metabolic 9. hypocalcemia Plan - replace potassium - HD tomorrow - GI follow up for Hep B as tenofivir is on hold - check potassium - will follow
[2018-07-27] MEDS ORDERED: PT OWN MED DRAWER 7, Y5N ONE (19:58)
[2018-07-28] MEDS: VANCOMYCIN 250 MG/5 ML ORAL SOLUTION PO SCH ×4 (00:54→18:13)
--- NOTE | 2018-07-28 10:28 | PN ---
Progress Note (short form) - Note Progress Note: pt seen/ examined chart reviewed feels better Vital Signs Temp 97.8 F 07/27/18 17:00 Pulse 114 H 07/27/18 17:00 Resp 20 07/27/18 17:00 BP 148/92 07/27/18 17:00 Pulse Ox 99 07/26/18 09:00 Intake & Output 07/27/18 07/27/18 07/28/18 11:59 23:59 11:59 Intake Total 240 1700 100 Balance 240 1700 100 Intake: IVPB 500 Oral 240 1200 100 Other: Voiding Method Incontinent Bowel Movement Yes: 2 Yes # Bowel Movements 2 1 Active Medications Calcium Acetate (Phoslo -) 1,334 mg PO TIDCM [facility] Last Admin: 07/27/18 17:33 Dose: Not Given Collagenase (Santyl -) 1 applic TP DAILY [facility] Epoetin Arjun (Epogen -) 7,000 unit IVPUSH ONCE ONE Stop: 07/28/18 15:35 Heparin Sodium (Porcine) (Heparin -) 5,000 unit SQ BID [facility] Last Admin: 07/27/18 21:42 Dose: Not Given Sodium Chloride (Normal Saline -) 250 mls @ 3,000 mls/hr IV PRN PRN PRN Reason: Hypotension during Dialysis Stop: 07/28/18 15:34 Vancomycin HCl (Vancomycin Oral Solution) 125 mg PO Q6HPO [facility] Last Admin: 07/28/18 05:56 Dose: 125 mg CBC, BMP 07/26/18 10:30 07/27/18 05:30 today - labs - pending Microbiology 07/24/18 08:30 Blood Culture - Preliminary Blood - Peripheral Venous NO GROWTH OBTAINED AFTER 96 HOURS, INCUBATION TO CONTINUE FOR 1 DAYS. 07/24/18 08:30 Blood Culture - Preliminary Blood - Peripheral Venous NO GROWTH OBTAINED AFTER 96 HOURS, INCUBATION TO CONTINUE FOR 1 DAYS. 07/25/18 13:55 Gram Stain - Final Foot - Left Heel Wound Culture - Preliminary Lactose Fermenting Neg Bacilli Presumptive Ps Aeruginosa Staphylococcus Coagulase Neg Staphylococcus Latex Coag Pos Strep Agalactiae Group B Group D Strep Or Entero Coccus Physical Constitutional: Yes: No Distress, Calm Eyes: Yes: Conjunctiva Clear Neck: Yes: Supple Cardiovascular: Yes: Regular Rate and Rhythm Gastrointestinal: Yes: Normal Bowel Sounds, Soft, tender all areas, not distended Edema: No Integumentary: Yes: Other (history of heel ulcers--- follows at wound care.) Neurological: Yes: Alert Assessment/Plan better vancomycin--orally Dialysis as per renal C. difficile precautions wound care eval noted replace potassium-- iv clinically improving. will follow advised him to be compliant with staff/ care Problem List - Problems (1) Acute diarrhea Code(s): R19.7 - DIARRHEA, UNSPECIFIED (2) Bilateral pressure ulcer of feet Code(s): L89.899 - PRESSURE ULCER OF OTHER SITE, UNSPECIFIED STAGE (3) ESRD (end stage renal disease) Code(s): N18.6 - END STAGE RENAL DISEASE
[2018-07-28] MEDS: HEPARIN NA (PORCINE) 5,000 UNITS/ML 1ML VIAL SQ SCH ×2 (11:24→22:00)
[2018-07-28] MEDS: COLLAGENASE CLOSTRIDIUM HIST. 30 GRAMS TUBE TP SCH (11:24)
[2018-07-28] MEDS: CALCIUM ACETATE 667 MG CAPSULE (FP) PO SCH ×3 (11:24→18:12)
--- NOTE | 2018-07-28 11:48 | PN ---
Progress Note, Physician History of Present Illness: patient says he is doing better dirrhoea less but still present being dialysed - Current Medication List Current Medications: Active Medications Calcium Acetate (Phoslo -) 1,334 mg PO TIDCM [facility] Last Admin: 07/28/18 11:24 Dose: Not Given Collagenase (Santyl -) 1 applic TP DAILY [facility] Last Admin: 07/28/18 11:24 Dose: Not Given Epoetin Arjun (Epogen -) 7,000 unit IVPUSH ONCE ONE Stop: 07/28/18 15:35 Heparin Sodium (Porcine) (Heparin -) 5,000 unit SQ BID [facility] Last Admin: 07/28/18 11:24 Dose: Not Given Sodium Chloride (Normal Saline -) 250 mls @ 3,000 mls/hr IV PRN PRN PRN Reason: Hypotension during Dialysis Stop: 07/28/18 15:34 Vancomycin HCl (Vancomycin Oral Solution) 125 mg PO Q6HPO [facility] Last Admin: 07/28/18 05:56 Dose: 125 mg - Objective Vital Signs: Vital Signs Temperature 97.8 F 07/27/18 17:00 Pulse Rate 114 H 07/27/18 17:00 Respiratory Rate 20 07/27/18 17:00 Blood Pressure 148/92 07/27/18 17:00 O2 Sat by Pulse Oximetry (%) 99 07/26/18 09:00 Constitutional: Yes: No Distress, Calm Cardiovascular: Yes: Regular Rate and Rhythm Respiratory: Yes: Regular, CTA Bilaterally Gastrointestinal: Yes: Normal Bowel Sounds, Soft Musculoskeletal: Yes: WNL Extremities: Yes: Other Neurological: Yes: Alert, Oriented Psychiatric: Yes: Alert, Oriented Labs: CBC, BMP 07/26/18 10:30 07/27/18 05:30 INR, PTT INR 1.01 (0.83-1.09) 07/24/18 08:30 Assessment/Plan Problem List - Problems (1) Acute diarrhea Code(s): R19.7 - DIARRHEA, UNSPECIFIED (2) Bilateral pressure ulcer of feet Code(s): L89.899 - PRESSURE ULCER OF OTHER SITE, UNSPECIFIED STAGE (3) C. difficile colitis Code(s): A04.72 - ENTEROCOLITIS D/T CLOSTRIDIUM DIFFICILE, NOT SPCF RECUR (4) Chronic diarrhea Code(s): K52.9 - NONINFECTIVE GASTROENTERITIS AND COLITIS, UNSPECIFIED (5) Diabetic foot ulcer Code(s): E11.621 - TYPE 2 DIABETES MELLITUS WITH FOOT ULCER; L97.509 - NON- PRESSURE CHRONIC ULCER OTH PRT UNSP FOOT W UNSP SEVERITY Qualifiers: Diabetic foot ulcer location: heel Diabetes mellitus type: other specified (including JADON) Laterality: unspecified laterality Non-pressure ulcer stage : unspecified non-pressure ulcer stage Qualified Code(s): E13.621 - Other specified diabetes mellitus with foot ulcer; L97.409 - Non-pressure chronic ulcer of unspecified heel and midfoot with unspecified severity (6) ESRD (end stage renal disease) Code(s): N18.6 - END STAGE RENAL DISEASE (7) Generalized weakness Code(s): R53.1 - WEAKNESS (8) Sacral decubitus ulcer Code(s): L89.159 - PRESSURE ULCER OF SACRAL REGION, UNSPECIFIED STAGE plan continue vanco monitor dirrhoea rest as per the team patient stable
[2018-07-28] MEDS ORDERED: PT OWN MED DRAWER 7, Y5N ONE ×3 (12:11→18:07)
--- NOTE | 2018-07-28 13:15 | PN ---
Progress Note, Physician History of Present Illness: Pt seen and examined at bedside. He is awake and alert. He denies shortness of breath. He refused labs and refused HD today. He understands the risks. He says that his appetite is better and he is eating his meals. - Current Medication List Current Medications: Active Medications Calcium Acetate (Phoslo -) 1,334 mg PO TIDCM [facility] Last Admin: 07/28/18 12:22 Dose: Not Given Collagenase (Santyl -) 1 applic TP DAILY [facility] Last Admin: 07/28/18 11:24 Dose: Not Given Epoetin Arjun (Epogen -) 7,000 unit IVPUSH ONCE ONE Stop: 07/28/18 15:35 Heparin Sodium (Porcine) (Heparin -) 5,000 unit SQ BID [facility] Last Admin: 07/28/18 11:24 Dose: Not Given Sodium Chloride (Normal Saline -) 250 mls @ 3,000 mls/hr IV PRN PRN PRN Reason: Hypotension during Dialysis Stop: 07/28/18 15:34 Vancomycin HCl (Vancomycin Oral Solution) 125 mg PO Q6HPO [facility] Last Admin: 07/28/18 12:23 Dose: 125 mg - Objective Vital Signs: Vital Signs Temperature 97.8 F 07/27/18 17:00 Pulse Rate 114 H 07/27/18 17:00 Respiratory Rate 20 07/27/18 17:00 Blood Pressure 148/92 07/27/18 17:00 O2 Sat by Pulse Oximetry (%) 99 07/26/18 09:00 Constitutional: Yes: Calm Eyes: Yes: Conjunctiva Clear HENT: Yes: Atraumatic Cardiovascular: Yes: S1, S2 Respiratory: Yes: CTA Bilaterally Gastrointestinal: Yes: Normal Bowel Sounds, Soft, Other (diarrhea) Genitourinary: Yes: WNL Musculoskeletal: Yes: WNL Edema: No Neurological: Yes: Oriented Psychiatric: Yes: Oriented Labs: CBC, BMP 07/26/18 10:30 07/27/18 05:30 INR, PTT INR 1.01 (0.83-1.09) 07/24/18 08:30 Problem List - Problems (1) ESRD (end stage renal disease) Code(s): N18.6 - END STAGE RENAL DISEASE Assessment/Plan Current Medications Generic Name Dose Route Start Last Admin Trade Name Freq PRN Reason Stop Dose Admin Calcium Acetate 1,334 mg 07/27/18 17:30 07/28/18 12:22 Phoslo - PO Not Given TIDCM [facility] Collagenase 1 applic 07/28/18 10:00 07/28/18 11:24 Santyl - TP Not Given DAILY [facility] Epoetin Arjun 7,000 unit 07/28/18 15:34 Epogen - IVPUSH 07/28/18 15:35 ONCE ONE Heparin Sodium (Porcine) 5,000 unit 07/27/18 22:00 07/28/18 11:24 Heparin - SQ Not Given BID [facility] Sodium Chloride 250 mls @ 3,000 mls/hr 07/27/18 15:34 Normal Saline - IV 07/28/18 15:34 PRN PRN Hypotension during Dialysis Vancomycin HCl 125 mg 07/27/18 18:00 07/28/18 12:23 Vancomycin Oral Solution PO 125 mg Q6HPO [facility] Administration Impression 1. ESRD 2. anemia 3. hypokalemia 4. Hep B 5. diarrhea 6. depression 7. non-compliance with HD 8. acidosis - metabolic 9. hypocalcemia Plan - pt refused HD today - he also refused labs - will arrange HD for tomorrow - pt understands risks of morbidity and mortality - he is not usually compliant with treatments - GI follow up for Hep B as tenofivir is on hold - check potassium - will follow
[2018-07-28] MEDS ORDERED: EPOETIN ALFA 10,000 UNIT/1 ML VIAL IVPUSH ONE (14:00)
[2018-07-29] MEDS: VANCOMYCIN 250 MG/5 ML ORAL SOLUTION PO SCH ×6 (00:30→23:10)
[2018-07-29] MEDS ORDERED: PT OWN MED DRAWER 7, Y5N ONE (08:53)
[2018-07-29] MEDS: CALCIUM ACETATE 667 MG CAPSULE (FP) PO SCH ×3 (08:56→17:37)
[2018-07-29] MEDS: HEPARIN NA (PORCINE) 5,000 UNITS/ML 1ML VIAL SQ SCH ×2 (09:45→23:01)
[2018-07-29] MEDS: COLLAGENASE CLOSTRIDIUM HIST. 30 GRAMS TUBE TP SCH (09:45)
[2018-07-29 11:22] LABS: HEMATOCRIT 28.8 % (35.4-49); HEMOGLOBIN 9.7 GM/dL (11.7-16.9); MCH 31.7 pg (25.7-33.7); MCHC 33.7 g/dl (32.0-35.9); MEAN PLT VOLUME 9.5 fl (7.5-11.1); PLATELET COUNT 120 K/MM3 (134-434); RBC 3.07 M/mm3 (4.00-5.60); WHITE BLOOD COUNT 6.3 K/mm3 (4.0-10.0)
[2018-07-29 12:06] LABS: ANION GAP 10 MMOL/L (8-16); BLOOD UREA NITROGEN 34 mg/dL (7-18); CALCIUM 7.6 mg/dL (8.5-10.1); CHLORIDE 110 mmol/L (98-107); CO2 21 mmol/L (21-32); GLUCOSE,RANDOM 89 mg/dL (74-106); POTASSIUM 3.5 mmol/L (3.5-5.1); SODIUM 140 mmol/L (136-145)
[2018-07-29 12:11] LABS: CREATININE 9.5 mg/dL (0.55-1.3)
--- NOTE | 2018-07-29 13:15 | PN ---
Progress Note (short form) - Note Progress Note: pt seen/ examined. better diarrhea better Vital Signs Temp 99.1 F 07/28/18 18:31 Pulse 102 H 07/29/18 11:50 Resp 18 07/29/18 11:50 BP 121/71 07/29/18 11:50 Pulse Ox 99 07/26/18 09:00 Intake & Output 07/28/18 07/29/18 07/29/18 23:59 11:59 23:59 Intake Total 200 120 Balance 200 120 Intake: Oral 200 120 Other: Voiding Method Incontinent Incontinent # Unmeasured Voids Void 3 1 Bowel Movement Yes: 3 Yes # Bowel Movements 3 2 Active Medications Calcium Acetate (Phoslo -) 1,334 mg PO TIDCM [facility] Last Admin: 07/29/18 12:10 Dose: 1,334 mg Collagenase (Santyl -) 1 applic TP DAILY [facility] Last Admin: 07/29/18 09:45 Dose: Not Given Heparin Sodium (Porcine) (Heparin -) 5,000 unit SQ BID [facility] Last Admin: 07/29/18 09:45 Dose: Not Given Vancomycin HCl (Vancomycin Oral Solution) 125 mg PO Q6HPO [facility] Last Admin: 07/29/18 12:10 Dose: 125 mg CBC, BMP 07/29/18 10:55 07/29/18 10:55 Microbiology 07/25/18 13:55 Gram Stain - Final Foot - Left Heel Wound Culture - Final Citrobacter Freundii Complex Pseudomonas Aeruginosa Staphylococcus Coagulase Neg Mr S Aureus Morganella Morganii Group D Strep Or Entero Coccus 07/24/18 08:30 Blood Culture - Final Blood - Peripheral Venous NO GROWTH AFTER 5 DAYS INCUBATION 07/24/18 08:30 Blood Culture - Final Blood - Peripheral Venous NO GROWTH AFTER 5 DAYS INCUBATION Constitutional: Yes: No Distress, Calm Eyes: Yes: Conjunctiva Clear Neck: Yes: Supple Cardiovascular: Yes: Regular Rate and Rhythm Gastrointestinal: Yes: Normal Bowel Sounds, Soft, tender all areas, not distended Edema: No Integumentary: Yes: Other (history of heel ulcers--- follows at wound care.) Neurological: Yes: Alert Assessment/Plan Better slowly better vancomycin--orally Dialysis as per renal C. difficile precautions wound care eval noted clinically improving will follow Problem List - Problems (1) Acute diarrhea Code(s): R19.7 - DIARRHEA, UNSPECIFIED (2) Bilateral pressure ulcer of feet Code(s): L89.899 - PRESSURE ULCER OF OTHER SITE, UNSPECIFIED STAGE (3) ESRD (end stage renal disease) Code(s): N18.6 - END STAGE RENAL DISEASE
[2018-07-29 14:46] LABS: CREATININE 3.5 mg/dL (0.55-1.3)
--- NOTE | 2018-07-29 15:16 | PN ---
Progress Note (short form) - Note Progress Note: covering dr hansen seen while on dialysis affect is down denies suicidality no physical complaints Problems 1. ESRD 2. anemia 3. hypokalemia 4. Hep B 5. diarrhea 6. depression 7. non-compliance with HD 8. acidosis - metabolic 9. hypocalcemia Current Medications Calcium Acetate (Phoslo -) 1,334 mg PO TIDCM [facility] Last Admin: 07/29/18 12:10 Dose: 1,334 mg Collagenase (Santyl -) 1 applic TP DAILY [facility] Last Admin: 07/29/18 09:45 Dose: Not Given Heparin Sodium (Porcine) (Heparin -) 5,000 unit SQ BID [facility] Last Admin: 07/29/18 09:45 Dose: Not Given Vancomycin HCl (Vancomycin Oral Solution) 125 mg PO Q6HPO [facility] Last Admin: 07/29/18 12:10 Dose: 125 mg Last Vital Signs Temp Pulse Resp BP Pulse Ox 97.8 F 103 H 18 146/90 99 07/29/18 10:00 07/29/18 14:00 07/29/18 14:00 07/29/18 14:00 07/26/18 09:00 Lungs clear Heart reg Abd soft Ext no edema CBC, BMP 07/29/18 10:55 07/29/18 14:20 IMP- stable on dialysis Plan- uneventful dialysis
[2018-07-30] MEDS: VANCOMYCIN 250 MG/5 ML ORAL SOLUTION PO SCH ×4 (06:47→23:06)
[2018-07-30] MEDS: CALCIUM ACETATE 667 MG CAPSULE (FP) PO SCH ×3 (08:57→17:36)
[2018-07-30] MEDS: HEPARIN NA (PORCINE) 5,000 UNITS/ML 1ML VIAL SQ SCH ×2 (09:12→22:45)
[2018-07-30] MEDS: COLLAGENASE CLOSTRIDIUM HIST. 30 GRAMS TUBE TP SCH (09:12)
--- NOTE | 2018-07-30 11:22 | PN ---
Progress Note (short form) - Note Progress Note: Feels better. diarrhea better afebrile denies pain Vital Signs Temp 99 F 07/29/18 21:00 Pulse 89 07/29/18 21:00 Resp 18 07/29/18 21:00 BP 100/60 07/29/18 21:00 Pulse Ox 99 07/26/18 09:00 Intake & Output 07/29/18 07/29/18 07/30/18 11:59 23:59 11:59 Intake Total 120 120 200 Balance 120 120 200 Intake: Oral 120 120 200 Other: Voiding Method Incontinent Incontinent Incontinent # Unmeasured Voids Void 1 Bowel Movement Yes Yes # Bowel Movements 2 Active Medications Calcium Acetate (Phoslo -) 1,334 mg PO TIDCM [facility] Last Admin: 07/30/18 08:57 Dose: 1,334 mg Collagenase (Santyl -) 1 applic TP DAILY [facility] Last Admin: 07/30/18 09:12 Dose: 1 applic Heparin Sodium (Porcine) (Heparin -) 5,000 unit SQ BID [facility] Last Admin: 07/30/18 09:12 Dose: Not Given Vancomycin HCl (Vancomycin Oral Solution) 125 mg PO Q6HPO [facility] Last Admin: 07/30/18 06:47 Dose: 125 mg CBC, BMP 07/29/18 10:55 07/29/18 14:20 Microbiology 07/25/18 13:55 Gram Stain - Final Foot - Left Heel Wound Culture - Final Citrobacter Freundii Complex Pseudomonas Aeruginosa Staphylococcus Coagulase Neg Mr S Aureus Morganella Morganii Enterococcus Faecalis 07/24/18 08:30 Blood Culture - Final Blood - Peripheral Venous NO GROWTH AFTER 5 DAYS INCUBATION 07/24/18 08:30 Blood Culture - Final Blood - Peripheral Venous NO GROWTH AFTER 5 DAYS INCUBATION Physical Constitutional: Yes: No Distress, Calm Eyes: Yes: Conjunctiva Clear Neck: Yes: Supple Cardiovascular: Yes: Regular Rate and Rhythm Gastrointestinal: Yes: Normal Bowel Sounds, Soft, tender all areas, not distended Edema: No Integumentary: Yes: Other (history of heel ulcers--- follows at wound care.) Neurological: Yes: Alert Assessment/Plan better vancomycin--orally Dialysis as per renal C. difficile precautions wound care eval noted clinically improving i/d to follow discussed if stable- anticipate d/c on po abx in am pt in agreement will follow Problem List - Problems (1) Acute diarrhea Code(s): R19.7 - DIARRHEA, UNSPECIFIED (2) Bilateral pressure ulcer of feet Code(s): L89.899 - PRESSURE ULCER OF OTHER SITE, UNSPECIFIED STAGE (3) ESRD (end stage renal disease) Code(s): N18.6 - END STAGE RENAL DISEASE
--- NOTE | 2018-07-30 12:41 | PN ---
Progress Note, Physician History of Present Illness: patient stable says ashleea is getting better - Current Medication List Current Medications: Active Medications Calcium Acetate (Phoslo -) 1,334 mg PO TIDCM [facility] Last Admin: 07/30/18 11:39 Dose: Not Given Collagenase (Santyl -) 1 applic TP DAILY [facility] Last Admin: 07/30/18 09:12 Dose: 1 applic Heparin Sodium (Porcine) (Heparin -) 5,000 unit SQ BID [facility] Last Admin: 07/30/18 09:12 Dose: Not Given Vancomycin HCl (Vancomycin Oral Solution) 125 mg PO Q6HPO [facility] Last Admin: 07/30/18 11:39 Dose: 125 mg - Objective Vital Signs: Vital Signs Temperature 99 F 07/29/18 21:00 Pulse Rate 89 07/29/18 21:00 Respiratory Rate 18 07/29/18 21:00 Blood Pressure 100/60 07/29/18 21:00 O2 Sat by Pulse Oximetry (%) 99 07/26/18 09:00 Constitutional: Yes: No Distress, Calm Cardiovascular: Yes: Regular Rate and Rhythm Respiratory: Yes: Regular, CTA Bilaterally Gastrointestinal: Yes: Normal Bowel Sounds, Soft Musculoskeletal: Yes: WNL Extremities: Yes: Other Wound/Incision: Yes: Other Neurological: Yes: Alert, Oriented Psychiatric: Yes: Alert, Oriented Labs: CBC, BMP 07/29/18 10:55 07/29/18 14:20 INR, PTT INR 1.01 (0.83-1.09) 07/24/18 08:30 Assessment/Plan Problem List - Problems (1) Acute diarrhea Code(s): R19.7 - DIARRHEA, UNSPECIFIED (2) Bilateral pressure ulcer of feet Code(s): L89.899 - PRESSURE ULCER OF OTHER SITE, UNSPECIFIED STAGE (3) C. difficile colitis Code(s): A04.72 - ENTEROCOLITIS D/T CLOSTRIDIUM DIFFICILE, NOT SPCF RECUR (4) Chronic diarrhea Code(s): K52.9 - NONINFECTIVE GASTROENTERITIS AND COLITIS, UNSPECIFIED (5) Diabetic foot ulcer Code(s): E11.621 - TYPE 2 DIABETES MELLITUS WITH FOOT ULCER; L97.509 - NON- PRESSURE CHRONIC ULCER OTH PRT UNSP FOOT W UNSP SEVERITY Qualifiers: Diabetic foot ulcer location: heel Diabetes mellitus type: other specified (including JADON) Laterality: unspecified laterality Non-pressure ulcer stage : unspecified non-pressure ulcer stage Qualified Code(s): E13.621 - Other specified diabetes mellitus with foot ulcer; L97.409 - Non-pressure chronic ulcer of unspecified heel and midfoot with unspecified severity (6) ESRD (end stage renal disease) Code(s): N18.6 - END STAGE RENAL DISEASE (7) Generalized weakness Code(s): R53.1 - WEAKNESS (8) Sacral decubitus ulcer Code(s): L89.159 - PRESSURE ULCER OF SACRAL REGION, UNSPECIFIED STAGE 9 left heel wound plan continue oral vanco cx results from the wound noted will d/w the primary team rest as per the team wound care
--- NOTE | 2018-07-30 21:48 | PN ---
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 ESRD 2. anemia 3. hypokalemia 4. Hep B 5. diarrhea 6. depression 7. non-compliance with HD 8. acidosis - metabolic 9. hypocalcemia Current Medications Calcium Acetate (Phoslo -) 1,334 mg PO TIDCM [facility] Last Admin: 07/30/18 17:36 Dose: Not Given Collagenase (Santyl -) 1 applic TP DAILY [facility] Last Admin: 07/30/18 09:12 Dose: 1 applic Heparin Sodium (Porcine) (Heparin -) 5,000 unit SQ BID [facility] Last Admin: 07/30/18 09:12 Dose: Not Given Vancomycin HCl (Vancomycin Oral Solution) 125 mg PO Q6HPO [facility] Last Admin: 07/30/18 17:35 Dose: 125 mg Last Vital Signs Temp Pulse Resp BP Pulse Ox 98.8 F 88 20 128/70 99 07/30/18 20:28 07/30/18 20:28 07/30/18 20:28 07/30/18 20:28 07/26/18 09:00 Lungs clear Heart reg Abd soft Ext no edema IMP- stable on dialysis Plan ordering HD for Tuesday
[2018-07-31] MEDS: VANCOMYCIN 250 MG/5 ML ORAL SOLUTION PO SCH ×4 (05:42→23:35)
[2018-07-31] MEDS: CALCIUM ACETATE 667 MG CAPSULE (FP) PO SCH ×3 (09:30→17:22)
[2018-07-31] MEDS: HEPARIN NA (PORCINE) 5,000 UNITS/ML 1ML VIAL SQ SCH ×2 (09:30→22:13)
--- NOTE | 2018-07-31 11:25 | PN ---
Progress Note, Physician History of Present Illness: patient stable says dirrhoea was getting better now had lot of dirrhoea again last night says if he drinks anything it comes out being dialysed - Current Medication List Current Medications: Active Medications Calcium Acetate (Phoslo -) 1,334 mg PO TIDCM [facility] Last Admin: 07/31/18 09:30 Dose: Not Given Collagenase (Santyl -) 1 applic TP DAILY [facility] Last Admin: 07/30/18 09:12 Dose: 1 applic Doxycycline Hyclate (Vibramycin -) 100 mg PO BID@1000,1800 [facility] Heparin Sodium (Porcine) (Heparin -) 5,000 unit SQ BID [facility] Last Admin: 07/31/18 09:30 Dose: Not Given Sodium Chloride (Normal Saline -) 250 mls @ 3,000 mls/hr IV PRN PRN PRN Reason: Hypotension during Dialysis Stop: 07/31/18 21:51 Piperacillin Sod/Tazobactam (Sod 2.25 gm/ Dextrose) 50 mls @ 100 mls/hr IVPB Q8H-IV [facility]; Protocol Vancomycin HCl (Vancomycin Oral Solution) 125 mg PO Q6HPO [facility] Last Admin: 07/31/18 05:42 Dose: 125 mg - Objective Vital Signs: Vital Signs Temperature 98.7 F 07/31/18 04:00 Pulse Rate 95 H 07/31/18 04:00 Respiratory Rate 20 07/31/18 04:00 Blood Pressure 116/69 07/31/18 04:00 O2 Sat by Pulse Oximetry (%) 99 07/26/18 09:00 Constitutional: Yes: No Distress, Calm Cardiovascular: Yes: Regular Rate and Rhythm Respiratory: Yes: Regular, CTA Bilaterally Gastrointestinal: Yes: Normal Bowel Sounds, Soft Musculoskeletal: Yes: WNL Extremities: Yes: Other Wound/Incision: Yes: Dressing Removed, Other (soome oozing noted from both heel wounds with slough) Neurological: Yes: Alert, Oriented Labs: CBC, BMP 07/29/18 10:55 07/29/18 14:20 INR, PTT INR 1.01 (0.83-1.09) 07/24/18 08:30 Assessment/Plan Problem List - Problems (1) Acute diarrhea Code(s): R19.7 - DIARRHEA, UNSPECIFIED (2) Bilateral pressure ulcer of feet Code(s): L89.899 - PRESSURE ULCER OF OTHER SITE, UNSPECIFIED STAGE (3) C. difficile colitis Code(s): A04.72 - ENTEROCOLITIS D/T CLOSTRIDIUM DIFFICILE, NOT SPCF RECUR (4) Chronic diarrhea Code(s): K52.9 - NONINFECTIVE GASTROENTERITIS AND COLITIS, UNSPECIFIED (5) Diabetic foot ulcer Code(s): E11.621 - TYPE 2 DIABETES MELLITUS WITH FOOT ULCER; L97.509 - NON- PRESSURE CHRONIC ULCER OTH PRT UNSP FOOT W UNSP SEVERITY Qualifiers: Diabetic foot ulcer location: heel Diabetes mellitus type: other specified (including JADON) Laterality: unspecified laterality Non-pressure ulcer stage : unspecified non-pressure ulcer stage Qualified Code(s): E13.621 - Other specified diabetes mellitus with foot ulcer; L97.409 - Non-pressure chronic ulcer of unspecified heel and midfoot with unspecified severity (6) ESRD (end stage renal disease) Code(s): N18.6 - END STAGE RENAL DISEASE (7) Generalized weakness Code(s): R53.1 - WEAKNESS (8) Sacral decubitus ulcer Code(s): L89.159 - PRESSURE ULCER OF SACRAL REGION, UNSPECIFIED STAGE 9 left heel wound all cx results and sensitivities noted d/w the team plan will start on zosyn and doxy continue oral vanco wound care will repeat cdiff
--- NOTE | 2018-07-31 11:33 | PN ---
Progress Note (short form) - Note Progress Note: pt seen/ examined c/c- diarrhea again today. frustrated. Vital Signs Temp 98.7 F 07/31/18 04:00 Pulse 86 07/31/18 11:10 Resp 18 07/31/18 11:10 BP 121/79 07/31/18 11:10 Pulse Ox 99 07/26/18 09:00 Intake & Output 07/30/18 07/30/18 07/31/18 11:59 23:59 11:59 Intake Total 200 Balance 200 Intake: Oral 200 Other: Voiding Method Incontinent Incontinent Bowel Movement Yes Yes # Bowel Movements 3 2 Active Medications Calcium Acetate (Phoslo -) 1,334 mg PO TIDCM [facility] Last Admin: 07/31/18 09:30 Dose: Not Given Collagenase (Santyl -) 1 applic TP DAILY [facility] Last Admin: 07/30/18 09:12 Dose: 1 applic Doxycycline Hyclate (Vibramycin -) 100 mg PO BID@1000,1800 [facility] Heparin Sodium (Porcine) (Heparin -) 5,000 unit SQ BID [facility] Last Admin: 07/31/18 09:30 Dose: Not Given Sodium Chloride (Normal Saline -) 250 mls @ 3,000 mls/hr IV PRN PRN PRN Reason: Hypotension during Dialysis Stop: 07/31/18 21:51 Piperacillin Sod/Tazobactam (Sod 2.25 gm/ Dextrose) 50 mls @ 100 mls/hr IVPB Q8H-IV [facility]; Protocol Vancomycin HCl (Vancomycin Oral Solution) 125 mg PO Q6HPO [facility] Last Admin: 07/31/18 05:42 Dose: 125 mg CBC,CMP WBC 6.3 K/mm3 (4.0-10.0) 07/29/18 10:55 RBC 3.07 M/mm3 (4.00-5.60) L 07/29/18 10:55 Hgb 9.7 GM/dL (11.7-16.9) L 07/29/18 10:55 Hct 28.8 % (35.4-49) L 07/29/18 10:55 MCV 94.0 fl (80-96) 07/29/18 10:55 MCH 31.7 pg (25.7-33.7) 07/29/18 10:55 MCHC 33.7 g/dl (32.0-35.9) 07/29/18 10:55 RDW 15.0 % (11.9-15.9) 07/29/18 10:55 Plt Count 120 K/MM3 (134-434) L 07/29/18 10:55 MPV 9.5 fl (7.5-11.1) 07/29/18 10:55 Absolute Neuts (auto) 2.2 K/mm3 (1.5-8.0) 07/25/18 05:30 Neutrophils % 46.1 % (42.8-82.8) 07/25/18 05:30 Neutrophils % (Manual) 55.3 % (42.8-82.8) 07/25/18 05:30 Band Neutrophils % 1.9 % 07/25/18 05:30 Lymphocytes % 24.5 % (8-40) 07/25/18 05:30 Lymphocytes % (Manual) 20.4 % (8-40) 07/25/18 05:30 Monocytes % 26.6 % (3.8-10.2) H 07/25/18 05:30 Monocytes % (Manual) 19 % (3.8-10.2) H 07/25/18 05:30 Eosinophils % 2.0 % (0-4.5) 07/25/18 05:30 Eosinophils % (Manual) 1.0 % (0-4.5) 07/25/18 05:30 Basophils % 0.8 % (0-2.0) 07/25/18 05:30 Basophils % (Manual) 1.9 % (0-2.0) D 07/25/18 05:30 Myelocytes % (Man) 0 % (0-2) 07/25/18 05:30 Promyelocytes % (Man) 0 % (0-2) 07/25/18 05:30 Blast Cells % (Manual) 0 % (0-0) 07/25/18 05:30 Nucleated RBC % 0 % (0-0) 07/25/18 05:30 Metamyelocytes 1 % (0-2) D 07/25/18 05:30 Hypochromia 0 07/24/18 08:30 Platelet Estimate Decreased 07/24/18 08:30 Platelet Comment No clumping noted 07/25/18 05:30 Polychromasia 2+ 07/24/18 08:30 Poikilocytosis 0 07/24/18 08:30 Anisocytosis 1+ 07/25/18 05:30 Microcytosis 2+ 07/24/18 08:30 Macrocytosis 1+ 07/25/18 05:30 Tear Drop Cells 1+ 07/24/18 08:30 Ovalocytes 1+ 07/25/18 05:30 Messi Cells 1+ 07/24/18 08:30 Acanthocytes (Spur) 1+ 07/24/18 08:30 Sodium 140 mmol/L (136-145) 07/29/18 10:55 Potassium 3.5 mmol/L (3.5-5.1) 07/29/18 10:55 Chloride 110 mmol/L (98-107) H 07/29/18 10:55 Carbon Dioxide 21 mmol/L (21-32) 07/29/18 10:55 Anion Gap 10 MMOL/L (8-16) 07/29/18 10:55 BUN 12 mg/dL (7-18) 07/29/18 14:20 Creatinine 3.5 mg/dL (0.55-1.3) H 07/29/18 14:20 Creat Clearance w eGFR 5.89 (>60) 07/29/18 10:55 POC Glucometer 115 UNITS (80-120) 07/25/18 10:21 Random Glucose 89 mg/dL (74-106) 07/29/18 10:55 Lactic Acid 0.7 mmol/L (0.4-2.0) 07/24/18 18:01 Calcium 7.6 mg/dL (8.5-10.1) L 07/29/18 10:55 Phosphorus 2.9 mg/dL (2.5-4.9) 07/26/18 10:30 Magnesium 2.0 mg/dL (1.8-2.4) 07/26/18 10:30 Total Bilirubin 0.6 mg/dL (0.2-1) 07/25/18 05:30 AST 4 U/L (15-37) L 07/25/18 05:30 ALT < 6 U/L (13-61) L 07/25/18 05:30 Alkaline Phosphatase 49 U/L (45-117) 07/25/18 05:30 Troponin I < 0.02 ng/ml (0.00-0.05) 07/24/18 08:30 Total Protein 5.0 g/dl (6.4-8.2) L 07/25/18 05:30 Albumin 2.6 g/dl (3.4-5.0) L 07/25/18 05:30 wound cultures- noted/ discussed with . Physical Constitutional: Yes: No Distress, anxious . mood labile Eyes: Yes: Conjunctiva Clear Neck: Yes: Supple Cardiovascular: Yes: Regular Rate and Rhythm Gastrointestinal: Yes: Normal Bowel Sounds, Soft, tender all areas, not distended Edema: No Integumentary: Yes: Other (history of heel ulcers--- follows at wound care.) Neurological: Yes: Alert Assessment/Plan Discussed with i/d vancomycin--orally Dialysis as per renal C. difficile precautions wound care cultures discussed with i/d zosyn per i/d to be started repeat c diff I/d considering stool transplant. discussed with pt also in detail will consult psychology also Problem List - Problems (1) Acute diarrhea Code(s): R19.7 - DIARRHEA, UNSPECIFIED (2) Bilateral pressure ulcer of feet Code(s): L89.899 - PRESSURE ULCER OF OTHER SITE, UNSPECIFIED STAGE (3) ESRD (end stage renal disease) Code(s): N18.6 - END STAGE RENAL DISEASE
[2018-07-31 12:07] LABS: HEMATOCRIT 28.4 % (35.4-49); HEMOGLOBIN 9.5 GM/dL (11.7-16.9); MCH 31.7 pg (25.7-33.7); MCHC 33.4 g/dl (32.0-35.9); MEAN CELL VOLUME 94.9 fl (80-96); MEAN PLT VOLUME 9.4 fl (7.5-11.1); PLATELET COUNT 141 K/MM3 (134-434); RBC 2.99 M/mm3 (4.00-5.60); RDW 15.4 % (11.9-15.9); WHITE BLOOD COUNT 8.9 K/mm3 (4.0-10.0)
[2018-07-31 12:49] LABS: ALBUMIN 2.5 g/dl (3.4-5.0); ALK PHOS 70 U/L (45-117); ANION GAP 9 MMOL/L (8-16); BILIRUBIN,TOTAL 0.3 mg/dL (0.2-1); BLOOD UREA NITROGEN 27 mg/dL (7-18); CALCIUM 7.9 mg/dL (8.5-10.1); CHLORIDE 107 mmol/L (98-107); CO2 25 mmol/L (21-32); GLUCOSE,RANDOM 112 mg/dL (74-106); PHOSPHOROUS 1.2 mg/dL (2.5-4.9); POTASSIUM 3.4 mmol/L (3.5-5.1); SGOT/AST 4 U/L (15-37); SGPT/ALT 9 U/L (13-61); SODIUM 141 mmol/L (136-145); TOT PROT 5.4 g/dl (6.4-8.2)
[2018-07-31 12:54] LABS: CREATININE 7.4 mg/dL (0.55-1.3)
[2018-07-31] MEDS ORDERED: DEXTROSE 5%-WATER - 50 ML IVPB ONE ×2 (13:15→19:27)
[2018-07-31] MEDS ORDERED: PIPERACILLIN/TAZOBACTAM 2.25 GM VIAL IVPB ONE ×2 (13:15→19:27)
[2018-07-31] MEDS: COLLAGENASE CLOSTRIDIUM HIST. 30 GRAMS TUBE TP SCH (13:19)
[2018-07-31] MEDS: PIPERACILLIN/TAZOB 2.25 GM 2.25 GM in DEXTROSE 5%-WATER - 50 ML IVPB SCH ×2 (13:19→20:22)
[2018-07-31] MEDS ORDERED: SODIUM CHLORIDE 250 ML IV PRN (14:00)
[2018-07-31] MEDS ORDERED: POTASSIUM CHLORIDE TABS 20 MEQ TABLET.ER (FP) PO ONE (14:14)
--- NOTE | 2018-07-31 14:17 | PN ---
Progress Note, Physician History of Present Illness: Pt seen and examined at bedside. He is awake and alert. He still complains of diarrhea and it has not improved. - Current Medication List Current Medications: Active Medications Calcium Acetate (Phoslo -) 1,334 mg PO TIDCM [facility] Last Admin: 07/31/18 13:19 Dose: 1,334 mg Collagenase (Santyl -) 1 applic TP DAILY [facility] Last Admin: 07/31/18 13:19 Dose: 1 applic Doxycycline Hyclate (Vibramycin -) 100 mg PO BID@1000,1900 [facility] Heparin Sodium (Porcine) (Heparin -) 5,000 unit SQ BID [facility] Last Admin: 07/31/18 09:30 Dose: Not Given Piperacillin Sod/Tazobactam (Sod 2.25 gm/ Dextrose) 50 mls @ 100 mls/hr IVPB Q8H-IV [facility]; Protocol Last Admin: 07/31/18 13:19 Dose: 100 mls/hr Vancomycin HCl (Vancomycin Oral Solution) 125 mg PO Q6HPO [facility] Last Admin: 07/31/18 13:19 Dose: 125 mg - Objective Vital Signs: Vital Signs Temperature 98.7 F 07/31/18 04:00 Pulse Rate 99 H 07/31/18 12:40 Respiratory Rate 18 07/31/18 12:40 Blood Pressure 119/77 07/31/18 12:40 O2 Sat by Pulse Oximetry (%) 99 07/26/18 09:00 Constitutional: Yes: Calm Eyes: Yes: Conjunctiva Clear HENT: Yes: Atraumatic Cardiovascular: Yes: S1, S2 Respiratory: Yes: CTA Bilaterally Gastrointestinal: Yes: Soft, Other (diarrhea) Musculoskeletal: Yes: WNL Edema: No Neurological: Yes: Oriented Psychiatric: Yes: Oriented Labs: CBC, BMP 07/31/18 11:20 07/31/18 11:20 INR, PTT INR 1.01 (0.83-1.09) 07/24/18 08:30 Problem List - Problems (1) ESRD (end stage renal disease) Code(s): N18.6 - END STAGE RENAL DISEASE Assessment/Plan Current Medications Generic Name Dose Route Start Last Admin Trade Name Freq PRN Reason Stop Dose Admin Calcium Acetate 1,334 mg 07/27/18 17:30 07/31/18 13:19 Phoslo - PO 1,334 mg TIDCM [facility] Administration Collagenase 1 applic 07/28/18 10:00 07/31/18 13:19 Santyl - TP 1 applic DAILY [facility] Administration Doxycycline Hyclate 100 mg 07/31/18 19:00 Vibramycin - PO BID@1000,1900 [facility] Heparin Sodium (Porcine) 5,000 unit 07/27/18 22:00 07/31/18 09:30 Heparin - SQ Not Given BID [facility] Piperacillin Sod/Tazobactam 50 mls @ 100 mls/hr 07/31/18 11:30 07/31/18 13:19 Sod 2.25 gm/ Dextrose IVPB 100 mls/hr Q8H-IV [facility] Administration Protocol Potassium Chloride 40 meq 07/31/18 14:14 K-Dur - PO 07/31/18 14:15 ONCE ONE Vancomycin HCl 125 mg 07/27/18 18:00 07/31/18 13:19 Vancomycin Oral Solution PO 125 mg Q6HPO [facility] Administration Impression 1. ESRD 2. anemia 3. hypokalemia 4. Hep B 5. diarrhea 6. depression 7. non-compliance with HD 8. acidosis - metabolic 9. hypocalcemia Plan - HD today - ID/GI follow up for diarrhea - replace potassium - GI follow up for Hep B as tenofivir is on hold - will follow
[2018-07-31] MEDS: DOXYCYCLINE HYCLATE 100 MG CAPSULE PO SCH (20:22)
[2018-08-01] MEDS: PIPERACILLIN/TAZOB 2.25 GM 2.25 GM in DEXTROSE 5%-WATER - 50 ML IVPB SCH ×2 (01:21→11:00)
[2018-08-01] MEDS: VANCOMYCIN 250 MG/5 ML ORAL SOLUTION PO SCH ×2 (06:29→14:10)
--- NOTE | 2018-08-01 08:27 | CON.PSL ---
Psychology Consult Consult Specialty:: Psychology History Provided By: Medical Record (The patient was in a deep sleep and non- responsive at attempts to wake him. ) Limitations to Obtaining History: Other (Patient appeared to be in a deep sleep. Attemtps to waken him with a loud voice failed.) Current Medications: Active Medications Calcium Acetate (Phoslo -) 1,334 mg PO TIDCM [facility] Last Admin: 07/31/18 17:22 Dose: Not Given Collagenase (Santyl -) 1 applic TP DAILY [facility] Last Admin: 07/31/18 13:19 Dose: 1 applic Doxycycline Hyclate (Vibramycin -) 100 mg PO BID@1000,1900 [facility] Last Admin: 07/31/18 20:22 Dose: Not Given Heparin Sodium (Porcine) (Heparin -) 5,000 unit SQ BID [facility] Last Admin: 07/31/18 22:13 Dose: Not Given Piperacillin Sod/Tazobactam (Sod 2.25 gm/ Dextrose) 50 mls @ 100 mls/hr IVPB Q8H-IV [facility]; Protocol Last Admin: 08/01/18 01:21 Dose: Not Given Vancomycin HCl (Vancomycin Oral Solution) 125 mg PO Q6HPO [facility] Last Admin: 08/01/18 06:29 Dose: 125 mg Allergies: Allergies Allergy/AdvReac Type Severity Reaction Status Date / Time levofloxacin [From Levaquin] Allergy Mild Rash Verified 07/24/18 08:07 meropenem Allergy Verified 07/24/18 08:07 vancomycin Allergy Verified 07/24/18 08:07 amino Allergy Intermediate Rash Uncoded 07/24/18 08:07 Pain Location Body Site: All over his skin. Pain Description: Chronic - Family History Family History: Unable to Obtain (He apparently has a girlfriend who visits him. Family is said not to visit.) Assessment/Plan Due to the fact that the patient was in a deep sleep an evaluation of the patient was not possible. He will be seen tomorrow when another attempt will be made to assess his current Mental State and establish his acceptance of intervention. The patient's nurse provided additional information about him. She also made an effort to waken him so that the psychological examination could be completed. However, he was unresponsive to her efforts as well. The current working diagnosis of Major Depression - Severe is based on his nurse's input An attempt to visit him again on 08/02/18 will be made for the purpose of completing the assessment. * The patient was seen again on 08/02/18 to attempt further assessment of this patient. He was alert and cooperative. Howevr, due to sever hearing loss, he was unable to hear the examiner. Questions were written down so that he could respond. He was very frustrated about not being able to hear. His medical condition also results in anxiety but depression was denied. * He stated that he just wanted to go home. * His vision also seemed to be poor as he needed to bring the clip board close in order to see my questions. * It is recommended that both his hearing and visual problems be evaluated and corrective measures be implemented as appropriate.
[2018-08-01] MEDS: CALCIUM ACETATE 667 MG CAPSULE (FP) PO SCH ×3 (10:56→17:37)
[2018-08-01] MEDS: HEPARIN NA (PORCINE) 5,000 UNITS/ML 1ML VIAL SQ SCH ×2 (10:56→21:44)
[2018-08-01] MEDS: DOXYCYCLINE HYCLATE 100 MG CAPSULE PO SCH (11:00)
--- NOTE | 2018-08-01 12:26 | PN ---
Progress Note, Physician History of Present Illness: patient says he cannot hear anything also told the nurse keerthi makes him warm--does not want it any more dirrhoea has improved according to the nursing staff - Current Medication List Current Medications: Active Medications Calcium Acetate (Phoslo -) 1,334 mg PO TIDCM [facility] Last Admin: 08/01/18 10:56 Dose: Not Given Collagenase (Santyl -) 1 applic TP DAILY [facility] Last Admin: 07/31/18 13:19 Dose: 1 applic Doxycycline Hyclate (Vibramycin -) 100 mg PO BID@1000,1900 [facility] Last Admin: 08/01/18 11:00 Dose: Not Given Heparin Sodium (Porcine) (Heparin -) 5,000 unit SQ BID [facility] Last Admin: 08/01/18 10:56 Dose: Not Given Piperacillin Sod/Tazobactam (Sod 2.25 gm/ Dextrose) 50 mls @ 100 mls/hr IVPB Q8H-IV [facility]; Protocol Last Admin: 08/01/18 11:00 Dose: Not Given Vancomycin HCl (Vancomycin Oral Solution) 125 mg PO Q6HPO [facility] Last Admin: 08/01/18 06:29 Dose: 125 mg - Objective Vital Signs: Vital Signs Temperature 98.8 F 08/01/18 11:37 Pulse Rate 95 H 07/31/18 17:30 Respiratory Rate 20 07/31/18 17:30 Blood Pressure 106/58 L 07/31/18 17:30 O2 Sat by Pulse Oximetry (%) 100 07/31/18 21:00 Constitutional: Yes: No Distress, Calm HENT: Yes: Other (cannot hear) Cardiovascular: Yes: Regular Rate and Rhythm Respiratory: Yes: Regular, CTA Bilaterally Gastrointestinal: Yes: Normal Bowel Sounds, Soft Musculoskeletal: Yes: WNL Extremities: Yes: WNL Neurological: Yes: Alert, Oriented, Other (says cannot hear) Labs: CBC, BMP 07/31/18 11:20 07/31/18 11:20 INR, PTT INR 1.01 (0.83-1.09) 07/24/18 08:30 Assessment/Plan Problem List - Problems (1) Acute diarrhea Code(s): R19.7 - DIARRHEA, UNSPECIFIED (2) Bilateral pressure ulcer of feet Code(s): L89.899 - PRESSURE ULCER OF OTHER SITE, UNSPECIFIED STAGE (3) C. difficile colitis Code(s): A04.72 - ENTEROCOLITIS D/T CLOSTRIDIUM DIFFICILE, NOT SPCF RECUR (4) Chronic diarrhea Code(s): K52.9 - NONINFECTIVE GASTROENTERITIS AND COLITIS, UNSPECIFIED (5) Diabetic foot ulcer Code(s): E11.621 - TYPE 2 DIABETES MELLITUS WITH FOOT ULCER; L97.509 - NON- PRESSURE CHRONIC ULCER OTH PRT UNSP FOOT W UNSP SEVERITY Qualifiers: Diabetic foot ulcer location: heel Diabetes mellitus type: other specified (including JADON) Laterality: unspecified laterality Non-pressure ulcer stage : unspecified non-pressure ulcer stage Qualified Code(s): E13.621 - Other specified diabetes mellitus with foot ulcer; L97.409 - Non-pressure chronic ulcer of unspecified heel and midfoot with unspecified severity (6) ESRD (end stage renal disease) Code(s): N18.6 - END STAGE RENAL DISEASE (7) Generalized weakness Code(s): R53.1 - WEAKNESS (8) Sacral decubitus ulcer Code(s): L89.159 - PRESSURE ULCER OF SACRAL REGION, UNSPECIFIED STAGE 9 left heel wound all cx results and sensitivities noted d/w the team plan will stop all abx await for ear function to come back ent rest as per the team
[2018-08-01] MEDS ORDERED: SODIUM CHLORIDE 250 ML IV PRN (13:42)
--- NOTE | 2018-08-01 13:59 | PN ---
Progress Note, Physician History of Present Illness: Pt seen and examined at bedside. He still has diarrhea. He is agitated. - Current Medication List Current Medications: Active Medications Calcium Acetate (Phoslo -) 1,334 mg PO TIDCM [facility] Last Admin: 08/01/18 10:56 Dose: Not Given Collagenase (Santyl -) 1 applic TP DAILY [facility] Last Admin: 07/31/18 13:19 Dose: 1 applic Heparin Sodium (Porcine) (Heparin -) 5,000 unit SQ BID [facility] Last Admin: 08/01/18 10:56 Dose: Not Given - Objective Vital Signs: Vital Signs Temperature 98.8 F 08/01/18 11:37 Pulse Rate 95 H 07/31/18 17:30 Respiratory Rate 20 07/31/18 17:30 Blood Pressure 106/58 L 07/31/18 17:30 O2 Sat by Pulse Oximetry (%) 100 07/31/18 21:00 Constitutional: Yes: Mild Distress Eyes: Yes: Conjunctiva Clear Cardiovascular: Yes: S1, S2 Respiratory: Yes: CTA Bilaterally Gastrointestinal: Yes: Normal Bowel Sounds Musculoskeletal: Yes: WNL Edema: No Neurological: Yes: Oriented Psychiatric: Yes: Oriented Labs: CBC, BMP 07/31/18 11:20 07/31/18 11:20 INR, PTT INR 1.01 (0.83-1.09) 07/24/18 08:30 Problem List - Problems (1) ESRD (end stage renal disease) Code(s): N18.6 - END STAGE RENAL DISEASE Assessment/Plan Current Medications Generic Name Dose Route Start Last Admin Trade Name Jessica PRN Reason Stop Dose Admin Calcium Acetate 1,334 mg 07/27/18 17:30 08/01/18 10:56 Phoslo - PO Not Given TIDCM [facility] Collagenase 1 applic 07/28/18 10:00 07/31/18 13:19 Santyl - TP 1 applic DAILY [facility] Administration Heparin Sodium (Porcine) 5,000 unit 07/27/18 22:00 08/01/18 10:56 Heparin - SQ Not Given BID [facility] Impression 1. ESRD 2. anemia 3. hypokalemia 4. Hep B 5. diarrhea 6. depression 7. non-compliance with HD 8. acidosis - metabolic 9. hypocalcemia Plan - pt now off of abx - HD in am - check labs in am - encourage PO intake - GI follow up for Hep B as tenofivir is on hold - will follow
--- NOTE | 2018-08-01 14:21 | PN ---
Progress Note (short form) - Note Progress Note: loose stools decreased Cdiff negative now has hearing loss- sudden Vital Signs - 24 hr 07/31/18 07/31/18 07/31/18 17:30 20:01 21:00 Temperature 98.7 F 100.4 F H Pulse Rate 95 H Respiratory 20 Rate Blood Pressure 106/58 L O2 Sat by Pulse 100 Oximetry (%) 07/31/18 08/01/18 22:00 11:37 Temperature 99.9 F H 98.8 F Pulse Rate Respiratory Rate Blood Pressure O2 Sat by Pulse Oximetry (%) Current Medications Generic Name Dose Route Start Last Admin Trade Name Freq PRN Reason Stop Dose Admin Calcium Acetate 1,334 mg 07/27/18 17:30 08/01/18 14:09 Phoslo - PO Not Given TIDCM [facility] Collagenase 1 applic 07/28/18 10:00 07/31/18 13:19 Santyl - TP 1 applic DAILY [facility] Administration Epoetin Arjun 4,000 unit 08/02/18 13:59 Epogen - IVPUSH 08/02/18 14:00 ONCE ONE Heparin Sodium (Porcine) 5,000 unit 07/27/18 22:00 08/01/18 10:56 Heparin - SQ Not Given BID [facility] Sodium Chloride 250 mls @ 3,000 mls/hr 08/01/18 13:59 Normal Saline - IV 08/02/18 13:59 PRN PRN Hypotension during Dialysis Constitutional: Yes: No Distress, Calm Eyes: Yes: Conjunctiva Clear Neck: Yes: Supple Cardiovascular: Yes: Regular Rate and Rhythm Gastrointestinal: Yes: Normal Bowel Sounds, Soft, not tender Edema: No Integumentary: Yes: Other (history of heel ulcers--- follows at wound care.) Neurological: Yes: Alert Assessment/Plan spoke with ID will consult with ENT unsure what may be the cause of hearing loss all antibiotics stopped continue with local wound care Problem List - Problems (1) Acute diarrhea Code(s): R19.7 - DIARRHEA, UNSPECIFIED (2) Bilateral pressure ulcer of feet Code(s): L89.899 - PRESSURE ULCER OF OTHER SITE, UNSPECIFIED STAGE (3) C. difficile colitis Code(s): A04.72 - ENTEROCOLITIS D/T CLOSTRIDIUM DIFFICILE, NOT SPCF RECUR (4) Chronic diarrhea Code(s): K52.9 - NONINFECTIVE GASTROENTERITIS AND COLITIS, UNSPECIFIED (5) Diabetic foot ulcer Code(s): E11.621 - TYPE 2 DIABETES MELLITUS WITH FOOT ULCER; L97.509 - NON- PRESSURE CHRONIC ULCER OTH PRT UNSP FOOT W UNSP SEVERITY Qualifiers: Diabetic foot ulcer location: heel Diabetes mellitus type: other specified (including JADON) Laterality: unspecified laterality Non-pressure ulcer stage : unspecified non-pressure ulcer stage Qualified Code(s): E13.621 - Other specified diabetes mellitus with foot ulcer; L97.409 - Non-pressure chronic ulcer of unspecified heel and midfoot with unspecified severity (6) ESRD (end stage renal disease) Code(s): N18.6 - END STAGE RENAL DISEASE (7) Generalized weakness Code(s): R53.1 - WEAKNESS (8) Sacral decubitus ulcer Code(s): L89.159 - PRESSURE ULCER OF SACRAL REGION, UNSPECIFIED STAGE
[2018-08-01] MEDS: COLLAGENASE CLOSTRIDIUM HIST. 30 GRAMS TUBE TP SCH (16:50)
[2018-08-01] MEDS ORDERED: SODIUM CHLORIDE 250 ML IV STA (18:37)
--- NOTE | 2018-08-01 18:58 | RAPID ---
<Magdi Hawkins - Last Filed: 08/01/18 18:51> Physical Examination Vital Signs: Vital Signs Temperature 98.8 F 08/01/18 11:37 Pulse Rate 95 H 07/31/18 17:30 Respiratory Rate 20 07/31/18 17:30 Blood Pressure 106/58 L 07/31/18 17:30 O2 Sat by Pulse Oximetry (%) 100 08/01/18 09:00 rapid response was called for pt mentioned due to low blood pressure 64/34, p 92 , temp 98.3 250 cc NS bolus was given primary was informed (operations clerk symphony covering ) Dr mcdonald was informed ID Pt transferred to ICU CBC, CMP, EKG, trop, cxr , blood cx, urine cx , wound cx will sign out to icu team and night team gambling monitor blood pressure monitor pulse oxy consider iv fluids vs vasopressor as pt is ESRD on HD Dr Frey was informed as well case was discussed with Dr adams and floor team. Labs: CBC, BMP 07/31/18 11:20 07/31/18 11:20 <Kait Adams - Last Filed: 08/03/18 18:18> Physical Examination Labs: CBC, BMP 08/02/18 07:23 08/02/18 07:23 Rapid Response - Rapid Response Assessment: rapid response called for SBP 60s. patient seen and examined. Mentating well, strong radial pulse. Chest: CTAB, no rales or wheezing Abdomen:soft, NT, ND, positive bowel sounds extremities: no edema Skin: flushed. patient with ongoing poor oral intake. ongoing C defficile diarrhea, refusing oral vancomycin. hypotension, likely from severe hypovolumia +/- sepsis from above. IVF 500 ml bolus. CBC, BMP, lactate. ICU consulted, patient was seen case discussed with Dr. Frey. ID Dr. Klein input for antibiotic coverage given patient with known multiple allergies. Care transferred to ICU team. I was present throughout entire rapid response. total critical care time spent at bedside 25 min. Critical Care Total Critical Care Time (in minutes): 25
--- NOTE | 2018-08-01 19:43 | CON.ENT ---
Consult Consult Specialty:: otolaryngology Referred by:: Dr. Longo Reason for Consultation:: Hearing loss - History of Present Illness Chief Complaint: hearing loss History of Present Illness: 52M admitted with ESRD, diabetic wounds, diarrhea of uncertain etiology reportedly was saying that he had a hard time hearing suddenly from both ears. The patient is not cooperative with examination earlier this afternoon and would not cooperate with a history/physical. - History Source History Provided By: Medical Record - Past Medical History SCIENTIFIC ILLUSTRATOR: Yes: Peripheral Neuropathy Hepatobiliary: Yes: Hepatitis B Renal/: Yes: Renal Inusuff, Hemodialysis Infectious Disease: Yes: Other (Rt heel OM) Psych: Yes: Depression Endocrine: Yes: Diabetes Mellitus. No: Abel's Disease, Freeland's Disease, Diabetes Insipidus, Hyperparathyroidism, Hyperthyroidism, Hypothyroidism, Osteopenia, SIADH, Other - Past Surgical History Past Surgical History: Yes: AV Fistula/Graft - Alcohol/Substance Use Hx Alcohol Use: No - Smoking History Smoking history: Unknown if ever smoked Have you smoked in the past 12 months: No - Social History Usual Living Arrangement: With Significant Other ADL: Independent History of Recent Travel: No Home Medications - Allergies Allergies/Adverse Reactions: Allergies Allergy/AdvReac Type Severity Reaction Status Date / Time levofloxacin [From Levaquin] Allergy Mild Rash Verified 07/24/18 08:07 meropenem Allergy Verified 07/24/18 08:07 vancomycin Allergy Verified 07/24/18 08:07 amino Allergy Intermediate Rash Uncoded 07/24/18 08:07 - Home Medications Home Medications: Ambulatory Orders Unobtainable 07/24/18 Family Disease History - Family Disease History Other Family History: No family history of colorectal cancer or IBD Physical Exam-ENT Vital Signs: Vital Signs Temperature 98.8 F 08/01/18 11:37 Pulse Rate 95 H 07/31/18 17:30 Respiratory Rate 20 07/31/18 17:30 Blood Pressure 106/58 L 07/31/18 17:30 O2 Sat by Pulse Oximetry (%) 100 08/01/18 09:00 Constitutional: Yes: Other (laying on side in bed. Asleep?. Doesn't respond to loud voice, nor to me shaking him. He does, however, move and look up at me angrily when I tried to examine his ears with my otoscope. I attemped to speak to him in yoruba and yoruba. He did not respond, nor speak. My exam was then very limited and forcefully resisted my gentle effort to turn his head the other way to look at his other ear.) Head: Yes: WNL Face: Yes: WNL Outer Ear: Yes: Other (left wnl would not cooperate with tuning fork exam) Ear Canal: Yes: Cerumen Tympanic Membrane: Yes: Other (left: partly covered by cerumen directly atop the TM. 25% of the eardrum is exposed and grossly clear, no overt fluid. No infxn.) Neck: Yes: Other (unable to examine) Neurological: Yes: Other (no overt facial asymmetry noted. limited exam) Problem List - Problems (1) Perceived hearing loss Assessment/Plan: Possible hearing loss of unclear etiology. Patient refuses examination by me, as well as care by other providers. No reports of ear pain. Limited history as he refuses to cooperate. +DM, ESRD. - Nursing reports note that while at times he indicates he cannot hear anything , other times he hears/answers questions appropriately. - I was able to see the left ear. There is some deep wax impaction (too deep to safely remove at bedside erlin without his cooperation), but not overt effusion. While certainly affecting his hearing, I doubt the wax is causing a huge amount of hearing loss. - Right ear not visualized. - It is unclear if he truly has a subjectively severe hearing loss (conductive or sensorineural?) or possibly associated with his depression/isolation for which I see he has been refusing care and evaluation by other providers. - ?Conductive hearing loss -- With his ESRD he is at a greater risk of a serous middle ear effusion, though not overtly seen in left ear. - ?Sensorineural Hearing loss - His medical comorbidities increase his chance of a baseline sensorineural hearing loss. - ?Sudden sensorineural hearing loss -- is very rare and unlikely to have happened bilaterally at the same time. Treatment for true sudden hearing loss is high dose steroids, though I prefer to be certain of a hearing loss before starting this. There is time sensitivity to treatment, with the most likely improvement when initiated within two weeks of onset. He needs audiometry ( performed in our outpatient office down the street) as soon as possible to evaluate. - ?Central - Less likely this could represent a central vascular insult/infarct , which is more likely in a patient with his comorbidities. Consider imaging. - ?Ototoxicity - Vancomycin has been discontinued. This medication can be ototoxic. However, my understanding is that when given orally as it was, there is no significant absorption hence unlikely to have caused a sudden hearing loss. Unless necessary, however, I agree with its discontinuation. Please have the patient follow up with me in my office as an outpatient as soon as he is discharged for full examination with audiometry. Care per primary medical team. Thank you for this consultation. Please call with questions. Code(s): H90.5 - UNSPECIFIED SENSORINEURAL HEARING LOSS
--- NOTE | 2018-08-01 20:04 | CONSULT ---
Consult Consult Specialty:: Critical Care Referred by:: Hospitalist Reason for Consultation:: Hypotension - History of Present Illness Chief Complaint: Hypotension History of Present Illness: 52M with history of ESRD on HD M/W/F last dialyzed yesterday presented to the ER with recurrent watery diarrhea. The patient has been having diarrhea for the past few weeks. He has been treated for C. Diff in the past and on this admission C. Diff is negative. Patient endorses chills and "low grade fever". He endorses "my ears are plugged up and I can not hear". The patient is still able to speak at a normal volume level and at times is able to hear what I am saying as he is able to respond to what I am saying. Today a rapid response was called due to hypotension and the patient was transferred to ICU for further management. History and review of systems was difficult to conduct as the patient would look away when asking questions and he would answer when he felt like it. He also would look away when trying to write questions down for him or he would just keep repeating he cant hear and ignore me. Per RN in ICU and ELECTRICAL ESTIMATOR who was taking care of him upstairs the patient is able to answer questions appropriately. - History Source History Provided By: Patient, Medical Record Limitations to Obtaining History: Clinical Condition - Past Medical History WOUND CARE RN: Yes: Peripheral Neuropathy Hepatobiliary: Yes: Hepatitis B Renal/: Yes: Renal Inusuff, Hemodialysis Infectious Disease: Yes: Other (Rt heel OM) Psych: Yes: Depression Endocrine: Yes: Diabetes Mellitus. No: [place]'s Disease, Mario's Disease, Diabetes Insipidus, Hyperparathyroidism, Hyperthyroidism, Hypothyroidism, Osteopenia, SIADH, Other - Past Surgical History Past Surgical History: Yes: AV Fistula/Graft - Alcohol/Substance Use Hx Alcohol Use: No - Smoking History Smoking history: Unknown if ever smoked Have you smoked in the past 12 months: No - Social History Usual Living Arrangement: With Significant Other ADL: Independent History of Recent Travel: No Home Medications - Allergies Allergies/Adverse Reactions: Allergies Allergy/AdvReac Type Severity Reaction Status Date / Time levofloxacin [From Levaquin] Allergy Mild Rash Verified 07/24/18 08:07 vancomycin Allergy Verified 07/24/18 08:07 amino Allergy Intermediate Rash Uncoded 07/24/18 08:07 - Home Medications Home Medications: Ambulatory Orders Unobtainable 07/24/18 Family Disease History - Family Disease History Family History: Unable to Obtain Other Family History: No family history of colorectal cancer or IBD Review of Systems Findings/Remarks: Patient refusing to answer questions and states he can not hear me. Patient is able to speak at an appropriate volume and will answer some questions. - Review of Systems Constitutional: reports: Chills Cardiovascular: reports: Other (hypotension) Gastrointestinal: reports: Abdominal Pain, Diarrhea Physical Exam Vital Signs: Vital Signs Temperature 98.6 F 08/01/18 18:30 Pulse Rate 88 08/01/18 18:30 Respiratory Rate 18 08/01/18 18:30 Blood Pressure 60/28 L 08/01/18 18:30 O2 Sat by Pulse Oximetry (%) 100 08/01/18 09:00 Constitutional: Yes: Well Nourished, No Distress, Calm Eyes: Yes: Conjunctiva Clear, EOM Intact HENT: Yes: Atraumatic, Normocephalic Neck: Yes: Supple, Trachea Midline Cardiovascular: Yes: Regular Rate and Rhythm Respiratory: Yes: Regular, CTA Bilaterally Gastrointestinal: Yes: Soft. No: Distention, Tenderness Renal/: No: CVA Tenderness - Left, CVA Tenderness - Right Extremities: Yes: Other (bilateral heel decubitus ulcer. Left heel has draining sinus tract with purulent discharge and abkle to probe to bone) Edema: No Peripheral Pulses WNL: No Integumentary: Yes: Pressure Ulcer (bilateral heel decubitus ulcer. Right heel wound has a clean wound base with pink granulation tissue. Left heel has draining sinus tract with purulent discharge and abkle to probe to bone.) Wound/Incision: Yes: Other (bilateral heel decubitus ulcer. Right heel wound has a clean wound base with pink granulation tissue. Left heel has draining sinus tract with purulent discharge and abkle to probe to bone.) Neurological: Yes: Alert, Oriented Labs: CBC, BMP 07/31/18 11:20 07/31/18 11:20 Imaging - Results Chest X-ray: Image Reviewed Assessment/Plan 52M with history of ESRD on HD and C. Diff presents to the hospital with recurrent watery diarrhea now s/p rapid response for hypotension. Patient has been asymptomatic without any complaints and has been mentating well. Problem List: Sepsis Possible impending Septic shock Osteomyelitis Leukocytosis Lactic acidosis Hypotension ESRD on HD History of DM Volume depletion/Dehydration peripheral neuropathy bilateral heel wounds/decubitus ulcers Depression Hepatitis B Hearing Loss Plan: Patient will require ICU care Bolus IVF Trend BP Send STAT Labs Trend lactic acid EKG Spoke with Dr. Frey and he will dialyze patient tomorrow but will not take off fluids as patient is likely volume depleted from ongoing GI loses Patient has been treated for C. Diff and C. Diff is now negative Patient's left heel had some purulent drainage expressed and this was sent for wound culture BCx UA UCx-patient refusing straight cath ESR/CRP replete electrolytes PRN Will need GI re-evaluation not only for diarrhea but for hepatitis B treatment. His treatment was held due to possible side effect of diarrhea but after a week his diarrhea has not improved-will call in AM Spoke with Dr. Klein and recommended to start on Clindamycin 900mg IV x1 and meropenem doses for ESRD. Coming up that patient is allergic to meropenem but patient states he is allergic to all antibiotics that are infused. Patient states he is not allergic specifically to meropenem. Will use Aztreonam if patient really is allergic. Patient states he is no longer diabetic Patient seen by ENT for hearing loss. Consult appreciated. Questionable true hearing loss. Patient can follow up as outpatient for testing. CCTime 60 min
[2018-08-01 21:11] LABS: BASO % 0.1 % (0-2.0); EOS % 0.7 % (0-4.5); HEMATOCRIT 28.9 % (35.4-49); HEMOGLOBIN 9.6 GM/dL (11.7-16.9); LYMPH % 5.8 % (8-40); MCHC 33.1 g/dl (32.0-35.9); MEAN CELL VOLUME 96.6 fl (80-96); MEAN PLT VOLUME 9.9 fl (7.5-11.1); NEUT % 89.4 % (42.8-82.8); PLATELET COUNT 125 K/MM3 (134-434); RBC 2.99 M/mm3 (4.00-5.60); RDW 16.3 % (11.9-15.9); WHITE BLOOD COUNT 23.6 K/mm3 (4.0-10.0)
[2018-08-01] MEDS ORDERED: VANCOMYCIN 1 GRAM (PRE-DOCKED) 1,000 MG/250 ML BAG IVPB ONE (21:24)
[2018-08-01] MEDS ORDERED: MEROPENEM 500 MG in DEXTROSE 5%-WATER 100 ML IVPB ONE ×2 (21:29→22:45)
[2018-08-01 21:35] LABS: MAGNESIUM 1.6 mg/dL (1.8-2.4)
[2018-08-01 21:37] LABS: ALBUMIN 2.2 g/dl (3.4-5.0); ALK PHOS 62 U/L (45-117); ANION GAP 11 MMOL/L (8-16); BILIRUBIN,TOTAL 0.6 mg/dL (0.2-1); BLOOD UREA NITROGEN 26 mg/dL (7-18); CALCIUM 7.2 mg/dL (8.5-10.1); CHLORIDE 104 mmol/L (98-107); CO2 26 mmol/L (21-32); CREATININE 5.8 mg/dL (0.55-1.3); GLUCOSE,RANDOM 76 mg/dL (74-106); POTASSIUM 3.5 mmol/L (3.5-5.1); SGOT/AST 6 U/L (15-37); SGPT/ALT 9 U/L (13-61); SODIUM 141 mmol/L (136-145); TOT PROT 4.9 g/dl (6.4-8.2)
[2018-08-01] MEDS ORDERED: PT OWN MED DRAWER 7, Y5N ONE (21:41)
[2018-08-01] MEDS ORDERED: MAGNESIUM SULF 50% (8.12 MEQ/2 ML-1 GM VIAL) IVPB ONE (21:50)
[2018-08-01 22:15] LABS: PLATELET ESTIMATE DECREASED
[2018-08-01] MEDS ORDERED: POTASSIUM CHLORIDE ORAL LIQUID 20 MEQ/15 ML PO ONE (22:30)
[2018-08-01] MEDS ORDERED: CLINDAMYCIN 900 MG PREMIX IVPB 900 MG/50 ML BAG IVPB ONE (22:30)
[2018-08-02] MEDS ORDERED: LACTATED RINGERS SOLUTION 1000 ML INFUS.BAG IV ONE ×4 (01:00→09:42)
[2018-08-02] MEDS ORDERED: LACTATED RINGERS SOLUTION 1,000 ML IV ONE (07:00)
[2018-08-02 08:07] LABS: ANION GAP 8 MMOL/L (8-16); BLOOD UREA NITROGEN 27 mg/dL (7-18); CHLORIDE 107 mmol/L (98-107); CO2 25 mmol/L (21-32); CREATININE 5.8 mg/dL (0.55-1.3); GLUCOSE,RANDOM 81 mg/dL (74-106); POTASSIUM 3.8 mmol/L (3.5-5.1); SODIUM 139 mmol/L (136-145)
[2018-08-02] MEDS: CALCIUM ACETATE 667 MG CAPSULE (FP) PO SCH ×3 (08:40→18:25)
[2018-08-02] MEDS ORDERED: CALCIUM GLUCONATE 10% - 1,000 MG/10 ML VIAL IVPB ONE (08:42)
[2018-08-02 08:44] LABS: MAGNESIUM 1.8 mg/dL (1.8-2.4); PHOSPHOROUS 1.6 mg/dL (2.5-4.9)
[2018-08-02 08:51] LABS: HEMATOCRIT 26.5 % (35.4-49); HEMOGLOBIN 8.8 GM/dL (11.7-16.9); MCH 32.2 pg (25.7-33.7); MCHC 33.3 g/dl (32.0-35.9); MEAN CELL VOLUME 96.6 fl (80-96); PLATELET COUNT 129 K/MM3 (134-434); RBC 2.74 M/mm3 (4.00-5.60); RDW 15.9 % (11.9-15.9); WHITE BLOOD COUNT 22.1 K/mm3 (4.0-10.0)
[2018-08-02 09:22] LABS: CALCIUM 6.8 mg/dL (8.5-10.1)
--- NOTE | 2018-08-02 10:13 | PN ---
Progress Note (short form) - Note Progress Note: loose stools yesterday transferred to ICU for hypotension Cdiff negative now has hearing loss- sudden Vital Signs - 24 hr 08/01/18 08/01/18 08/01/18 19:30 20:46 20:50 Temperature 99.4 F Pulse Rate 91 H 90 Respiratory 18 18 18 Rate Blood Pressure 68/36 L 66/31 L O2 Sat by Pulse 100 Oximetry (%) 08/01/18 08/01/18 08/02/18 22:00 23:00 03:00 Temperature 99.2 F Pulse Rate 92 H 90 87 Respiratory 18 18 18 Rate Blood Pressure 77/44 L 70/40 L O2 Sat by Pulse Oximetry (%) 08/02/18 08/02/18 08/02/18 07:00 08:00 10:00 Temperature 98.8 F Pulse Rate 93 H 92 H 90 Respiratory 18 18 18 Rate Blood Pressure 87/41 L 81/44 L 95/86 O2 Sat by Pulse 100 Oximetry (%) 08/02/18 08/02/18 08/02/18 12:00 14:00 14:57 Temperature 99.1 F Pulse Rate 90 94 H 88 Respiratory 18 18 18 Rate Blood Pressure 105/54 L 86/48 L 85/44 L O2 Sat by Pulse Oximetry (%) Current Medications Generic Name Dose Route Start Last Admin Trade Name Williamq PRN Reason Stop Dose Admin Calcium Acetate 1,334 mg 07/27/18 17:30 08/02/18 18:25 Phoslo - PO Not Given TIDCM RIVIN Collagenase 1 applic 07/28/18 10:00 08/02/18 12:15 Santyl - TP 1 applic DAILY IRVIN Administration Diphenhydramine HCl 50 mg 08/02/18 11:45 08/02/18 18:30 Benadryl Injection - IVPB 50 mg Q6H IRVIN Administration Duloxetine HCl 20 mg 08/03/18 10:00 Cymbalta - PO DAILY IRVIN Epoetin Arjun 4,000 unit 08/02/18 13:59 Epogen - IVPUSH 08/02/18 14:00 ONCE ONE Heparin Sodium (Porcine) 5,000 unit 07/27/18 22:00 08/02/18 12:15 Heparin - SQ Not Given BID IRVIN Sodium Chloride 250 mls @ 3,000 mls/hr 08/01/18 13:59 Normal Saline - IV 08/02/18 13:59 PRN PRN Hypotension during Dialysis Meropenem 500 mg/ Dextrose 100 mls @ 200 mls/hr 08/02/18 15:15 08/02/18 16:23 IVPB 200 mls/hr DAILY IRVIN Administration Lactobacillus Acidophilus 1 tab 08/02/18 15:15 08/02/18 15:17 Bacid - PO 1 tab DAILY IRVIN Administration Laboratory Results - last 24 hr 08/01/18 08/01/18 08/01/18 20:00 20:00 20:00 WBC 23.6 H RBC 2.99 L Hgb 9.6 L Hct 28.9 L MCV 96.6 H MCH 32.0 MCHC 33.1 RDW 16.3 H Plt Count 125 L MPV 9.9 Absolute Neuts (auto) 21.1 H Total Counted 100 Neutrophils % 89.4 H D Neutrophils % (Manual) 83.0 H D Band Neutrophils % 2.0 Lymphocytes % 5.8 L D Lymphocytes % (Manual) 9.0 D Monocytes % 4.0 D Monocytes % (Manual) 4 Eosinophils % 0.7 Basophils % 0.1 Nucleated RBC % 0 Platelet Estimate Decreased Platelet Comment No clumping noted Polychromasia 1+ ESR Sodium 141 Potassium 3.5 Chloride 104 Carbon Dioxide 26 Anion Gap 11 BUN 26 H Creatinine 5.8 H Creat Clearance w eGFR 10.40 Random Glucose 76 Lactic Acid 2.4 H* Calcium 7.2 L Phosphorus Magnesium Total Bilirubin 0.6 AST 6 L ALT 9 L Alkaline Phosphatase 62 Creatine Kinase Troponin I C-Reactive Protein Total Protein 4.9 L Albumin 2.2 L Blood Type Antibody Screen 08/01/18 08/01/18 08/01/18 20:00 20:00 20:00 WBC RBC Hgb Hct MCV MCH MCHC RDW Plt Count MPV Absolute Neuts (auto) Total Counted Neutrophils % Neutrophils % (Manual) Band Neutrophils % Lymphocytes % Lymphocytes % (Manual) Monocytes % Monocytes % (Manual) Eosinophils % Basophils % Nucleated RBC % Platelet Estimate Platelet Comment Polychromasia ESR Sodium Potassium Chloride Carbon Dioxide Anion Gap BUN Creatinine Creat Clearance w eGFR Random Glucose Lactic Acid Calcium Phosphorus Magnesium 1.6 L Total Bilirubin AST ALT Alkaline Phosphatase Creatine Kinase 21 L Troponin I < 0.02 C-Reactive Protein 17.7 H Total Protein Albumin Blood Type O POSITIVE Antibody Screen Negative 08/01/18 08/01/18 08/02/18 20:30 22:00 07:23 WBC RBC Hgb Hct MCV MCH MCHC RDW Plt Count MPV Absolute Neuts (auto) Total Counted Neutrophils % Neutrophils % (Manual) Band Neutrophils % Lymphocytes % Lymphocytes % (Manual) Monocytes % Monocytes % (Manual) Eosinophils % Basophils % Nucleated RBC % Platelet Estimate Platelet Comment Polychromasia ESR 20 Sodium 139 Potassium 3.8 Chloride 107 Carbon Dioxide 25 Anion Gap 8 BUN 27 H Creatinine 5.8 H Creat Clearance w eGFR 10.40 Random Glucose 81 Lactic Acid 1.6 Calcium 6.8 L* Phosphorus 1.6 L Magnesium 1.8 Total Bilirubin AST ALT Alkaline Phosphatase Creatine Kinase Troponin I C-Reactive Protein Total Protein Albumin Blood Type Antibody Screen 08/02/18 07:23 WBC 22.1 H RBC 2.74 L Hgb 8.8 L Hct 26.5 L MCV 96.6 H MCH 32.2 MCHC 33.3 RDW 15.9 Plt Count 129 L MPV 10.0 Absolute Neuts (auto) Total Counted Neutrophils % Neutrophils % (Manual) Band Neutrophils % Lymphocytes % Lymphocytes % (Manual) Monocytes % Monocytes % (Manual) Eosinophils % Basophils % Nucleated RBC % Platelet Estimate Platelet Comment Polychromasia ESR Sodium Potassium Chloride Carbon Dioxide Anion Gap BUN Creatinine Creat Clearance w eGFR Random Glucose Lactic Acid Calcium Phosphorus Magnesium Total Bilirubin AST ALT Alkaline Phosphatase Creatine Kinase Troponin I C-Reactive Protein Total Protein Albumin Blood Type Antibody Screen Constitutional: Yes: No Distress, Calm Eyes: Yes: Conjunctiva Clear Neck: Yes: Supple Cardiovascular: Yes: Regular Rate and Rhythm Gastrointestinal: Yes: Normal Bowel Sounds, Soft, not tender Edema: No Integumentary: Yes: Other (history of heel ulcers--- follows at wound care.) Neurological: Yes: Alert Assessment/Plan spoke with ID, GI ENT eval noted WBC elevated started Meropenum continue with local wound care stool studies repeated, blood cultures drawn Problem List - Problems (1) Acute diarrhea Code(s): R19.7 - DIARRHEA, UNSPECIFIED (2) Bilateral pressure ulcer of feet Code(s): L89.899 - PRESSURE ULCER OF OTHER SITE, UNSPECIFIED STAGE (3) C. difficile colitis Code(s): A04.72 - ENTEROCOLITIS D/T CLOSTRIDIUM DIFFICILE, NOT SPCF RECUR (4) Chronic diarrhea Code(s): K52.9 - NONINFECTIVE GASTROENTERITIS AND COLITIS, UNSPECIFIED (5) Diabetic foot ulcer Code(s): E11.621 - TYPE 2 DIABETES MELLITUS WITH FOOT ULCER; L97.509 - NON- PRESSURE CHRONIC ULCER OTH PRT UNSP FOOT W UNSP SEVERITY Qualifiers: Diabetic foot ulcer location: heel Diabetes mellitus type: other specified (including JADON) Laterality: unspecified laterality Non-pressure ulcer stage : unspecified non-pressure ulcer stage Qualified Code(s): E13.621 - Other specified diabetes mellitus with foot ulcer; L97.409 - Non-pressure chronic ulcer of unspecified heel and midfoot with unspecified severity (6) ESRD (end stage renal disease) Code(s): N18.6 - END STAGE RENAL DISEASE (7) Generalized weakness Code(s): R53.1 - WEAKNESS (8) Sacral decubitus ulcer Code(s): L89.159 - PRESSURE ULCER OF SACRAL REGION, UNSPECIFIED STAGE
[2018-08-02] MEDS: HEPARIN NA (PORCINE) 5,000 UNITS/ML 1ML VIAL SQ SCH ×2 (12:15→22:07)
[2018-08-02] MEDS: COLLAGENASE CLOSTRIDIUM HIST. 30 GRAMS TUBE TP SCH (12:15)
--- NOTE | 2018-08-02 13:49 | PN ---
Progress Note, Physician History of Present Illness: Pt seen and examined at bedside. He was upgraded to the ICU yesterday for hypotension. He says that he can not hear however he does answer questions. He is able to hear what his girlfriend says to him when she speaks in a lower voice than mine. He denies chills. He refused ent eval. He does not want HD today. - Current Medication List Current Medications: Active Medications Calcium Acetate (Phoslo -) 1,334 mg PO TIDCM [facility] Last Admin: 08/02/18 08:40 Dose: Not Given Collagenase (Santyl -) 1 applic TP DAILY [facility] Last Admin: 08/02/18 12:15 Dose: 1 applic Diphenhydramine HCl (Benadryl Injection -) 50 mg IVPB Q6H IRVIN Epoetin Arjun (Epogen -) 4,000 unit IVPUSH ONCE ONE Stop: 08/02/18 14:00 Heparin Sodium (Porcine) (Heparin -) 5,000 unit SQ BID [facility] Last Admin: 08/02/18 12:15 Dose: Not Given Sodium Chloride (Normal Saline -) 250 mls @ 3,000 mls/hr IV PRN PRN PRN Reason: Hypotension during Dialysis Stop: 08/02/18 13:59 Meropenem 500 mg/ Dextrose 100 mls @ 200 mls/hr IVPB DAILY [facility] - Objective Vital Signs: Vital Signs Temperature 99.1 F 08/02/18 13:01 Pulse Rate 94 H 08/02/18 13:01 Respiratory Rate 18 08/02/18 13:01 Blood Pressure 86/48 L 08/02/18 13:01 O2 Sat by Pulse Oximetry (%) 100 08/02/18 10:00 Constitutional: Yes: Calm Eyes: Yes: Conjunctiva Clear Cardiovascular: Yes: S1, S2 Respiratory: Yes: CTA Bilaterally Gastrointestinal: Yes: Soft Genitourinary: Yes: Incontinence Musculoskeletal: Yes: Muscle Weakness Edema: LLE: Trace, RLE: Trace Neurological: Yes: Oriented Psychiatric: Yes: Oriented Labs: CBC, BMP 08/02/18 07:23 08/02/18 07:23 INR, PTT INR 1.01 (0.83-1.09) 07/24/18 08:30 Problem List - Problems (1) ESRD (end stage renal disease) Code(s): N18.6 - END STAGE RENAL DISEASE Assessment/Plan Current Medications Generic Name Dose Route Start Last Admin Trade Name Fregalina PRN Reason Stop Dose Admin Calcium Acetate 1,334 mg 07/27/18 17:30 08/02/18 08:40 Phoslo - PO Not Given TIDCM IRVIN Collagenase 1 applic 07/28/18 10:00 08/02/18 12:15 Santyl - TP 1 applic DAILY IRVIN Administration Diphenhydramine HCl 50 mg 08/02/18 11:45 Benadryl Injection - IVPB Q6H IRVIN Epoetin Arjun 4,000 unit 08/02/18 13:59 Epogen - IVPUSH 08/02/18 14:00 ONCE ONE Heparin Sodium (Porcine) 5,000 unit 07/27/18 22:00 08/02/18 12:15 Heparin - SQ Not Given BID IRVIN Sodium Chloride 250 mls @ 3,000 mls/hr 08/01/18 13:59 Normal Saline - IV 08/02/18 13:59 PRN PRN Hypotension during Dialysis Meropenem 500 mg/ Dextrose 100 mls @ 200 mls/hr 08/02/18 10:00 IVPB DAILY IRVIN Impression 1. ESRD 2. anemia 3. hypokalemia 4. Hep B 5. diarrhea 6. depression 7. non-compliance with HD 8. acidosis - metabolic 9. hypocalcemia 10. hearing loss 11. sepsis Plan - pt s/p fluid boluses - bp is improved - will dialyzed tomorrow - ID follow up - ent input appreciated - GI follow up for Hep B as tenofivir is on hold - will follow
--- NOTE | 2018-08-02 13:50 | PN ---
Teaching Attending Note Name of Resident: Serafin Bernal ATTENDING PHYSICIAN STATEMENT I saw and evaluated the patient. I reviewed the resident's note and discussed the case with the resident. I agree with the resident's findings and plan as documented. SUBJECTIVE: Pt seen and examined in the ICU. Borderline hypotensive but responsive to IVF. Still c/o hearing loss. Diarrhea improving. OBJECTIVE: Vital Signs Period Temp Pulse Resp BP Sys/Gutierrez Pulse Ox Last 24 Hr 98.6 F-99.4 F 87-94 18-18 60-105/28-86 100-100 Intake & Output 07/30/18 07/31/18 08/01/18 08/02/18 23:59 23:59 23:59 23:59 Intake Total 110 256 9306 60 Balance 634 199 2153 60 Gen: NAD at rest, hard of hearing Heart: RRR Lung: decreased breath sounds at the bases Abd: soft, nontender Ext: no edema CBC, BMP 08/02/18 07:23 08/02/18 07:23 Active Medications Calcium Acetate (Phoslo -) 1,334 mg PO TIDCM [facility] Last Admin: 08/02/18 08:40 Dose: Not Given Collagenase (Santyl -) 1 applic TP DAILY [facility] Last Admin: 08/02/18 12:15 Dose: 1 applic Diphenhydramine HCl (Benadryl Injection -) 50 mg IVPB Q6H IRVIN Epoetin Arjun (Epogen -) 4,000 unit IVPUSH ONCE ONE Stop: 08/02/18 14:00 Heparin Sodium (Porcine) (Heparin -) 5,000 unit SQ BID IRVIN Last Admin: 08/02/18 12:15 Dose: Not Given Sodium Chloride (Normal Saline -) 250 mls @ 3,000 mls/hr IV PRN PRN PRN Reason: Hypotension during Dialysis Stop: 08/02/18 13:59 Meropenem 500 mg/ Dextrose 100 mls @ 200 mls/hr IVPB DAILY [facility] ASSESSMENT AND PLAN: Diarrhea - r/o Colitis Hypovolemia r/o Sepsis Lactic Acidosis ESRD on HD r/o Drug Rash Osteomyelitis Hearing Loss - antibiotics per ID - f/u cultures - IVF boluses as needed - benadryl for rash - HD per renal - DVT prophylaxis - continue ICU monitoring for now critical care time spent in reviewing chart, evaluating patient and formulating plan 35 min
--- NOTE | 2018-08-02 14:49 | PN ---
Progress Note, Physician History of Present Illness: events noted last night patient became hypotensive now in icu selective hearing loss patient says he was burning - Current Medication List Current Medications: Active Medications Calcium Acetate (Phoslo -) 1,334 mg PO TIDCM [facility] Last Admin: 08/02/18 08:40 Dose: Not Given Collagenase (Santyl -) 1 applic TP DAILY [facility] Last Admin: 08/02/18 12:15 Dose: 1 applic Diphenhydramine HCl (Benadryl Injection -) 50 mg IVPB Q6H [facility] Epoetin Arjun (Epogen -) 4,000 unit IVPUSH ONCE ONE Stop: 08/02/18 14:00 Heparin Sodium (Porcine) (Heparin -) 5,000 unit SQ BID [facility] Last Admin: 08/02/18 12:15 Dose: Not Given Sodium Chloride (Normal Saline -) 250 mls @ 3,000 mls/hr IV PRN PRN PRN Reason: Hypotension during Dialysis Stop: 08/02/18 13:59 Meropenem 500 mg/ Dextrose 100 mls @ 200 mls/hr IVPB DAILY [facility] - Objective Vital Signs: Vital Signs Temperature 99.1 F 08/02/18 14:00 Pulse Rate 94 H 08/02/18 14:00 Respiratory Rate 18 08/02/18 14:00 Blood Pressure 86/48 L 08/02/18 14:00 O2 Sat by Pulse Oximetry (%) 100 08/02/18 10:00 Constitutional: Yes: No Distress, Calm Cardiovascular: Yes: Regular Rate and Rhythm Respiratory: Yes: Regular, CTA Bilaterally Gastrointestinal: Yes: Normal Bowel Sounds, Soft Genitourinary: Yes: WNL Musculoskeletal: Yes: WNL Extremities: Yes: Other Neurological: Yes: Alert, Oriented Psychiatric: Yes: Alert, Oriented Labs: CBC, BMP 08/02/18 07:23 08/02/18 07:23 INR, PTT INR 1.01 (0.83-1.09) 07/24/18 08:30 - ....Imaging Chest X-ray: Report Reviewed, Image Reviewed Assessment/Plan Problem List - Problems (1) Acute diarrhea Code(s): R19.7 - DIARRHEA, UNSPECIFIED (2) Bilateral pressure ulcer of feet Code(s): L89.899 - PRESSURE ULCER OF OTHER SITE, UNSPECIFIED STAGE (3) C. difficile colitis Code(s): A04.72 - ENTEROCOLITIS D/T CLOSTRIDIUM DIFFICILE, NOT SPCF RECUR (4) Chronic diarrhea Code(s): K52.9 - NONINFECTIVE GASTROENTERITIS AND COLITIS, UNSPECIFIED (5) Diabetic foot ulcer Code(s): E11.621 - TYPE 2 DIABETES MELLITUS WITH FOOT ULCER; L97.509 - NON- PRESSURE CHRONIC ULCER OTH PRT UNSP FOOT W UNSP SEVERITY Qualifiers: Diabetic foot ulcer location: heel Diabetes mellitus type: other specified (including JADON) Laterality: unspecified laterality Non-pressure ulcer stage : unspecified non-pressure ulcer stage Qualified Code(s): E13.621 - Other specified diabetes mellitus with foot ulcer; L97.409 - Non-pressure chronic ulcer of unspecified heel and midfoot with unspecified severity (6) ESRD (end stage renal disease) Code(s): N18.6 - END STAGE RENAL DISEASE (7) Generalized weakness Code(s): R53.1 - WEAKNESS (8) Sacral decubitus ulcer Code(s): L89.159 - PRESSURE ULCER OF SACRAL REGION, UNSPECIFIED STAGE 9 left heel wound patient in icu patient currently refusing all abx plan if patient refuses meropenam start aztreonam rest continue current mgmt hydration rest as per icu all work up send cc time 40 min
[2018-08-02] MEDS: LACTOBACILLUS ACIDOPHILUS 1 TABLET PO SCH (15:17)
--- NOTE | 2018-08-02 15:49 | PN ---
Physical Exam: SUBJECTIVE: Patient seen and examined in the ICU. Borderline hypotensive but responsive to IVF. c/o hearing loss and burning skin/rash. Diarrhea improving. OBJECTIVE: Vital Signs Period Temp Pulse Resp BP Sys/Gutierrez Pulse Ox Last 24 Hr 98.6 F-99.4 F 87-94 18-18 60-105/28-86 100-100 GENERAL: AOX3 NAD, hard of hearing HEENT: NCAT sclera anicteric, conjunctiva clear. No ptosis. Dry MM NECK: Trachea midline, full range of motion, supple. LUNGS: CTAB HEART: RR tachy, S1, S2 without m/r/g ABDOMEN: Soft, NTND, hyperactive bowel sounds EXTREMITIES: 2+ pulses, warm, well-perfused, no edema. Pressure Ulcer ( bilateral heel decubitus ulcer. Right heel wound has a clean wound base with pink granulation tissue. Left heel has draining sinus tract with purulent discharge and abkle to probe to bone.) NEUROLOGICAL: Cranial nerves II through XII grossly intact. Normal speech, gait not observed. PSYCH: Normal mood, normal affect. SKIN: Warm, dry, normal turgor, +mild rash diffuse Laboratory Results - last 24 hr 08/01/18 08/01/18 08/01/18 18:35 20:00 20:00 WBC 23.6 H RBC 2.99 L Hgb 9.6 L Hct 28.9 L MCV 96.6 H MCH 32.0 MCHC 33.1 RDW 16.3 H Plt Count 125 L MPV 9.9 Absolute Neuts (auto) 21.1 H Total Counted 100 Neutrophils % 89.4 H D Neutrophils % (Manual) 83.0 H D Band Neutrophils % 2.0 Lymphocytes % 5.8 L D Lymphocytes % (Manual) 9.0 D Monocytes % 4.0 D Monocytes % (Manual) 4 Eosinophils % 0.7 Basophils % 0.1 Nucleated RBC % 0 Platelet Estimate Decreased Platelet Comment No clumping noted Polychromasia 1+ ESR Sodium 141 Potassium 3.5 Chloride 104 Carbon Dioxide 26 Anion Gap 11 BUN 26 H Creatinine 5.8 H Creat Clearance w eGFR 10.40 POC Glucometer 88 Random Glucose 76 Lactic Acid Calcium 7.2 L Phosphorus Magnesium Total Bilirubin 0.6 AST 6 L ALT 9 L Alkaline Phosphatase 62 Creatine Kinase Troponin I C-Reactive Protein Total Protein 4.9 L Albumin 2.2 L Blood Type Antibody Screen 08/01/18 08/01/18 08/01/18 20:00 20:00 20:00 WBC RBC Hgb Hct MCV MCH MCHC RDW Plt Count MPV Absolute Neuts (auto) Total Counted Neutrophils % Neutrophils % (Manual) Band Neutrophils % Lymphocytes % Lymphocytes % (Manual) Monocytes % Monocytes % (Manual) Eosinophils % Basophils % Nucleated RBC % Platelet Estimate Platelet Comment Polychromasia ESR Sodium Potassium Chloride Carbon Dioxide Anion Gap BUN Creatinine Creat Clearance w eGFR POC Glucometer Random Glucose Lactic Acid 2.4 H* Calcium Phosphorus Magnesium 1.6 L Total Bilirubin AST ALT Alkaline Phosphatase Creatine Kinase 21 L Troponin I < 0.02 C-Reactive Protein 17.7 H Total Protein Albumin Blood Type Antibody Screen 08/01/18 08/01/18 08/01/18 20:00 20:30 22:00 WBC RBC Hgb Hct MCV MCH MCHC RDW Plt Count MPV Absolute Neuts (auto) Total Counted Neutrophils % Neutrophils % (Manual) Band Neutrophils % Lymphocytes % Lymphocytes % (Manual) Monocytes % Monocytes % (Manual) Eosinophils % Basophils % Nucleated RBC % Platelet Estimate Platelet Comment Polychromasia ESR 20 Sodium Potassium Chloride Carbon Dioxide Anion Gap BUN Creatinine Creat Clearance w eGFR POC Glucometer Random Glucose Lactic Acid 1.6 Calcium Phosphorus Magnesium Total Bilirubin AST ALT Alkaline Phosphatase Creatine Kinase Troponin I C-Reactive Protein Total Protein Albumin Blood Type O POSITIVE Antibody Screen Negative 08/02/18 08/02/18 07:23 07:23 WBC 22.1 H RBC 2.74 L Hgb 8.8 L Hct 26.5 L MCV 96.6 H MCH 32.2 MCHC 33.3 RDW 15.9 Plt Count 129 L MPV 10.0 Absolute Neuts (auto) Total Counted Neutrophils % Neutrophils % (Manual) Band Neutrophils % Lymphocytes % Lymphocytes % (Manual) Monocytes % Monocytes % (Manual) Eosinophils % Basophils % Nucleated RBC % Platelet Estimate Platelet Comment Polychromasia ESR Sodium 139 Potassium 3.8 Chloride 107 Carbon Dioxide 25 Anion Gap 8 BUN 27 H Creatinine 5.8 H Creat Clearance w eGFR 10.40 POC Glucometer Random Glucose 81 Lactic Acid Calcium 6.8 L* Phosphorus 1.6 L Magnesium 1.8 Total Bilirubin AST ALT Alkaline Phosphatase Creatine Kinase Troponin I C-Reactive Protein Total Protein Albumin Blood Type Antibody Screen Active Medications Generic Name Dose Route Start Last Admin Trade Name Freq PRN Reason Stop Dose Admin Calcium Acetate 1,334 mg 07/27/18 17:30 08/02/18 14:56 Phoslo - PO Not Given TIDCM IRVIN Collagenase 1 applic 07/28/18 10:00 08/02/18 12:15 Santyl - TP 1 applic DAILY IRVIN Administration Diphenhydramine HCl 50 mg 08/02/18 11:45 08/02/18 10:55 Benadryl Injection - IVPB 50 mg Q6H IRVIN Administration Epoetin Arjun 4,000 unit 08/02/18 13:59 Epogen - IVPUSH 08/02/18 14:00 ONCE ONE Heparin Sodium (Porcine) 5,000 unit 07/27/18 22:00 08/02/18 12:15 Heparin - SQ Not Given BID IRVIN Sodium Chloride 250 mls @ 3,000 mls/hr 08/01/18 13:59 Normal Saline - IV 08/02/18 13:59 PRN PRN Hypotension during Dialysis Meropenem 500 mg/ Dextrose 100 mls @ 200 mls/hr 08/02/18 10:00 IVPB DAILY IRVIN ASSESSMENT/PLAN: 52 yo M PMH chronic Cdiff (recently tx), ESRD (MWF), presents to the hospital with recurrent watery diarrhea now s/p rapid response for hypotension. hypotension is responsive to IVF. NEURO AOX3 NAD no active issues Cardiac/pulm/GI/ID Diarrhea - r/o Colitis Hypovolemia Severe Sepsis - responsive to IVF. Osteomyelitis Lactic Acidosis - resolved bilateral heel wounds/decubitus ulcers chronic Cdiff (recently tx) maintain MAP>65 IVF boluses as needed, avoid fluid overload especially in ESRD O2 as needed Patient has been treated for C. Diff and C. Diff is now negative for toxin/ antigen will send for C diff PCR to confirm, given continuing diarrhea and sepsis UA UCx-patient refusing straight cath left heel had some purulent drainage expressed and this was sent for wound culture f/u BCx, wound cx CRP 17.7, ESR 20 meropenem, Will use Aztreonam if patient is allergic. GI follow up for Hep B as tenofivir is on hold due to possible side effect of diarrhea GI consult ID consult RENAL monitor Cr refusing loya HD annette renal consult epogen IVF boluses as needed ENT - hearing loss? Patient seen by ENT for hearing loss. Consult appreciated. Questionable true hearing loss. Patient can follow up as outpatient for testing. FRANCO ricoadryl for rash monitor for allergic rexns to meds ENDO History of DM Patient states he is no longer diabetic sugars have been stable on BMPs Psych Depression psych consult FEN IVF boluses as needed replete prn renal diet, lactose free ppx SQH bacid DISPO ICU monitoring Visit type - Emergency Visit Emergency Visit: Yes ED Registration Date: 07/24/18 Care time: The patient presented to the Emergency Department on the above date and was hospitalized for further evaluation of their emergent condition. - New Patient This patient is new to me today: Yes Date on this admission: 08/02/18 - Critical Care Critical Care patient: Yes Total Critical Care Time (in minutes): 38 Critical Care Statement: The care of this patient involved high complexity decision making to prevent further life threatening deterioration of the patient 's condition and/or to evaluate & treat vital organ system(s) failure or risk of failure.
--- NOTE | 2018-08-02 16:07 | PN ---
Progress Note, Physician History of Present Illness: Asked to re-evaluate pt for diarrhea. Pt initially seen by Dr. Shen with acute on chronic diarrhea, had been previously treated for C. Diff with flagyl and fidaxomicin (05/16), then advised hospitalization due to worsening diarrhea. Pt started on vancomycin po with initial improvement and advised tapering. Pt now noted to be hypotensive requiring transfer to ICU. Pt with new onset hearing loss of unclear etiology ?medication related, did not cooperate with ENT evaluation. Also with burning skin sensation, though no obvious rash. Episodes of loose stool noted overnight per nursing staff, none this am, and pt states diarrhea has improved. Denies n/v, or abdominal pain. Denies fever/chills. - Current Medication List Current Medications: Active Medications Calcium Acetate (Phoslo -) 1,334 mg PO TIDCM [facility] Last Admin: 08/02/18 14:56 Dose: Not Given Collagenase (Santyl -) 1 applic TP DAILY [facility] Last Admin: 08/02/18 12:15 Dose: 1 applic Diphenhydramine HCl (Benadryl Injection -) 50 mg IVPB Q6H [facility] Last Admin: 08/02/18 10:55 Dose: 50 mg Epoetin Arjun (Epogen -) 4,000 unit IVPUSH ONCE ONE Stop: 08/02/18 14:00 Heparin Sodium (Porcine) (Heparin -) 5,000 unit SQ BID [facility] Last Admin: 08/02/18 12:15 Dose: Not Given Sodium Chloride (Normal Saline -) 250 mls @ 3,000 mls/hr IV PRN PRN PRN Reason: Hypotension during Dialysis Stop: 08/02/18 13:59 Meropenem 500 mg/ Dextrose 100 mls @ 200 mls/hr IVPB DAILY [facility] Lactobacillus Acidophilus (Bacid -) 1 tab PO DAILY [facility] Last Admin: 08/02/18 15:17 Dose: 1 tab - Objective Vital Signs: Vital Signs Temperature 99.1 F 08/02/18 14:00 Pulse Rate 88 08/02/18 14:57 Respiratory Rate 18 08/02/18 14:57 Blood Pressure 85/44 L 08/02/18 14:57 O2 Sat by Pulse Oximetry (%) 100 08/02/18 10:00 Constitutional: Yes: Well Nourished, No Distress, Calm Cardiovascular: Yes: WNL, Regular Rate and Rhythm Respiratory: Yes: WNL, Regular, CTA Bilaterally Gastrointestinal: Yes: Normal Bowel Sounds, Soft (Abdomen soft, nontender, nondistended) Labs: CBC, BMP 08/02/18 07:23 08/02/18 07:23 INR, PTT INR 1.01 (0.83-1.09) 07/24/18 08:30 Problem List - Problems (1) Hepatitis B Assessment/Plan: Unclear of treatment history or whom has been managing with ?tenofovir previously. LFTs normal. Labs may suggest prior infection/exposure. -Check HBeAg and Ab, check HBV viral load -Will need to clarify prior treatment history and obtain records if possible prior to further determining treatment plan. Code(s): B19.10 - UNSPECIFIED VIRAL HEPATITIS B WITHOUT HEPATIC COMA (2) Acute diarrhea Assessment/Plan: Acute on chronic diarrhea with leucocytosis noted however C difficile repeat testing negative. Vancomycin has been dc'd per ID due to hearing loss. -Recommend monitor stool output and document bms if possible -Monitor/replete electrolytes as needed -Repeat C difficile and ova/parasites -Check HIV status -Follow up cultures with further recommendations per ICU team regarding infectious workup as may be other co-existing component -Pending above and if diarrhea persists would consider flexible sigmoidoscopy with biopsies for further evaluation Code(s): R19.7 - DIARRHEA, UNSPECIFIED
[2018-08-02] MEDS: MEROPENEM 500 MG in DEXTROSE 5%-WATER 100 ML IVPB SCH (16:23)
--- NOTE | 2018-08-02 16:57 | CON.PSY ---
Psychiatry Consult Chief Complaint: Patient with severe medical dfisorders including ESRD . patient seen for [facility] for depression, staff report that he has been refusing care and been crying. He apparantly resfused to speak to a therapist. from a Home. Symptoms: reports: Depressed Mood, Irritability - Previous Psychiatric Treatment Outpatient: None Inpatient: None - Previous Substance Abuse Treatment Outpatient: None Inpatient: None - Current Medications Current Medications: Active Medications Calcium Acetate (Phoslo -) 1,334 mg PO TIDCM [facility] Last Admin: 08/02/18 14:56 Dose: Not Given Collagenase (Santyl -) 1 applic TP DAILY [facility] Last Admin: 08/02/18 12:15 Dose: 1 applic Diphenhydramine HCl (Benadryl Injection -) 50 mg IVPB Q6H [facility] Last Admin: 08/02/18 10:55 Dose: 50 mg Duloxetine HCl (Cymbalta -) 20 mg PO DAILY [facility] Epoetin Arjun (Epogen -) 4,000 unit IVPUSH ONCE ONE Stop: 08/02/18 14:00 Heparin Sodium (Porcine) (Heparin -) 5,000 unit SQ BID [facility] Last Admin: 08/02/18 12:15 Dose: Not Given Sodium Chloride (Normal Saline -) 250 mls @ 3,000 mls/hr IV PRN PRN PRN Reason: Hypotension during Dialysis Stop: 08/02/18 13:59 Meropenem 500 mg/ Dextrose 100 mls @ 200 mls/hr IVPB DAILY [facility] Last Admin: 08/02/18 16:23 Dose: 200 mls/hr Lactobacillus Acidophilus (Bacid -) 1 tab PO DAILY [facility] Last Admin: 08/02/18 15:17 Dose: 1 tab - Allergies Allergies: Allergies Allergy/AdvReac Type Severity Reaction Status Date / Time levofloxacin [From Levaquin] Allergy Mild Rash Verified 07/24/18 08:07 vancomycin Allergy Verified 07/24/18 08:07 amino Allergy Intermediate Rash Uncoded 07/24/18 08:07 - Current Living Status Usual Living Arrangement: Custodial - Current Mental Status Evaluation Appearance: Disheveled Attitude: Guarded - Affect Affect: Constrictive Appropriateness: Appropriate to Content - Mood Mood: Depressed - Speech/Language Expressive: Coherent - Psychomotor Activity Psychomotor Activity: Slowed - Thought Process Thought Process: Intact - Thought Content Hallucinations: Absent Delusions: Absent - Self Perception Self Perception: No Impairment - Cognition Attention: Alert Orientation: Time Memory, Immediate Recall: Intact Memory, Short Term: 2/3 Memory, Remote with Promptin/3 - Concentration Serial Sevens Intact: No Simple Calculations Intact: Yes - Abstraction Proverb Interpretation: Impaired Judgement: Minimally Impaired - Insight Insight: Intact - Impulse Control Impulse Control: Minimally Impaired - Suicidal Ideation Suicidal Ideation: No - Homicidal Ideation Homicidal Ideation: No Assessment/Plan 1) Cymbalta 20mg po od for DEpression.
[2018-08-03] MEDS: CALCIUM ACETATE 667 MG CAPSULE (FP) PO SCH ×3 (10:10→16:41)
[2018-08-03] MEDS: LACTOBACILLUS ACIDOPHILUS 1 TABLET PO SCH (10:11)
[2018-08-03] MEDS: MEROPENEM 500 MG in DEXTROSE 5%-WATER 100 ML IVPB SCH (10:13)
[2018-08-03] MEDS: HEPARIN NA (PORCINE) 5,000 UNITS/ML 1ML VIAL SQ SCH ×2 (10:13→22:53)
[2018-08-03] MEDS: DULoxetine HCL 20 MG CAPSULE.DR (FP) PO SCH (10:13)
[2018-08-03] MEDS: COLLAGENASE CLOSTRIDIUM HIST. 30 GRAMS TUBE TP SCH (10:14)
--- NOTE | 2018-08-03 10:35 | PN ---
Progress Note (short form) - Note Progress Note: decreased bm appetote decreased no abd pain says his skin is burning now pt is hearing me - answering questions Vital Signs - 24 hr 08/02/18 08/02/18 08/02/18 12:00 14:00 14:57 Temperature 99.1 F Pulse Rate 90 94 H 88 Respiratory 18 18 18 Rate Blood Pressure 105/54 L 86/48 L 85/44 L O2 Sat by Pulse Oximetry (%) 08/02/18 08/02/18 08/02/18 19:19 20:00 21:00 Temperature Pulse Rate 94 H 95 H Respiratory 18 18 18 Rate Blood Pressure 87/46 L 107/59 L O2 Sat by Pulse 100 Oximetry (%) 08/02/18 08/03/18 08/03/18 22:00 00:18 02:39 Temperature 97.9 F Pulse Rate 97 H 96 H 90 Respiratory 18 18 15 Rate Blood Pressure 91/48 L 110/63 113/58 L O2 Sat by Pulse Oximetry (%) 08/03/18 08/03/18 08/03/18 06:00 08:00 08:56 Temperature Pulse Rate 90 97 H Respiratory 18 18 18 Rate Blood Pressure 93/50 L 93/50 L O2 Sat by Pulse 100 Oximetry (%) 08/03/18 08/03/18 08:57 10:01 Temperature 98.2 F Pulse Rate 97 H 96 H Respiratory 18 18 Rate Blood Pressure 109/61 104/57 L O2 Sat by Pulse Oximetry (%) Current Medications Generic Name Dose Route Start Last Admin Trade Name Freq PRN Reason Stop Dose Admin Calcium Acetate 1,334 mg 07/27/18 17:30 08/03/18 10:10 Phoslo - PO Not Given TIDCM [facility] Collagenase 1 applic 07/28/18 10:00 08/03/18 10:14 Santyl - TP 1 applic DAILY [facility] Administration Diphenhydramine HCl 50 mg 08/02/18 11:45 08/03/18 06:14 Benadryl Injection - IVPB 50 mg Q6H [facility] Administration Duloxetine HCl 20 mg 08/03/18 10:00 08/03/18 10:13 Cymbalta - PO Not Given DAILY [facility] Epoetin Arjun 4,000 unit 08/02/18 13:59 Epogen - IVPUSH 08/02/18 14:00 ONCE ONE Heparin Sodium (Porcine) 5,000 unit 07/27/18 22:00 08/03/18 10:13 Heparin - SQ Not Given BID [facility] Sodium Chloride 250 mls @ 3,000 mls/hr 08/01/18 13:59 Normal Saline - IV 08/02/18 13:59 PRN PRN Hypotension during Dialysis Meropenem 500 mg/ Dextrose 100 mls @ 200 mls/hr 08/02/18 15:15 08/03/18 10:13 IVPB 200 mls/hr DAILY [facility] Administration Lactobacillus Acidophilus 1 tab 08/02/18 15:15 08/03/18 10:11 Bacid - PO Not Given DAILY [facility] Constitutional: Yes: No Distress, Calm Eyes: Yes: Conjunctiva Clear Neck: Yes: Supple Cardiovascular: Yes: Regular Rate and Rhythm Gastrointestinal: Yes: Normal Bowel Sounds, Soft, not tender Edema: yes- hands Integumentary: Yes: Other (history of heel ulcers--- follows at wound care.) Neurological: Yes: Alert Assessment/Plan spoke with ID, GI unable to do dialysis today as access not working does not appear to be SOB Cdiff stool PCR done blood cultures negative WBC elevated started Meropenum wound culture noted-- explained to pt-- he asked why is he on antibiotics he is refusing his meds seems to selective hearing loss- has depression-- seen by Psychiatry-- refusing Cymbalta continue with local wound care ok to transfer to floor Problem List - Problems (1) Acute diarrhea Code(s): R19.7 - DIARRHEA, UNSPECIFIED (2) Bilateral pressure ulcer of feet Code(s): L89.899 - PRESSURE ULCER OF OTHER SITE, UNSPECIFIED STAGE (3) C. difficile colitis Code(s): A04.72 - ENTEROCOLITIS D/T CLOSTRIDIUM DIFFICILE, NOT SPCF RECUR (4) Chronic diarrhea Code(s): K52.9 - NONINFECTIVE GASTROENTERITIS AND COLITIS, UNSPECIFIED (5) Diabetic foot ulcer Code(s): E11.621 - TYPE 2 DIABETES MELLITUS WITH FOOT ULCER; L97.509 - NON- PRESSURE CHRONIC ULCER OTH PRT UNSP FOOT W UNSP SEVERITY Qualifiers: Diabetic foot ulcer location: heel Diabetes mellitus type: other specified (including JADON) Laterality: unspecified laterality Non-pressure ulcer stage : unspecified non-pressure ulcer stage Qualified Code(s): E13.621 - Other specified diabetes mellitus with foot ulcer; L97.409 - Non-pressure chronic ulcer of unspecified heel and midfoot with unspecified severity (6) ESRD (end stage renal disease) Code(s): N18.6 - END STAGE RENAL DISEASE (7) Generalized weakness Code(s): R53.1 - WEAKNESS (8) Sacral decubitus ulcer Code(s): L89.159 - PRESSURE ULCER OF SACRAL REGION, UNSPECIFIED STAGE
--- NOTE | 2018-08-03 12:35 | PN ---
Physical Exam: SUBJECTIVE: Patient seen and examined in the ICU. hypotension resolved w/ IVF. no complaints. Diarrhea improving. unable to do dialysis today as access not working. refusing epogen and meds OBJECTIVE: Vital Signs Period Temp Pulse Resp BP Sys/Gutierrez Pulse Ox Last 24 Hr 97.9 F-99.1 F 88-97 15-18 85-113/44-63 100-100 GENERAL: AOX3 NAD, hard of hearing HEENT: NCAT sclera anicteric, conjunctiva clear. No ptosis. MMM NECK: Trachea midline, full range of motion, supple. LUNGS: CTAB HEART: RR tachy, S1, S2 without m/r/g ABDOMEN: Soft, NTND, hyperactive bowel sounds EXTREMITIES: 2+ pulses, warm, well-perfused, no edema. Pressure Ulcer ( bilateral heel decubitus ulcer. Right heel wound has a clean wound base with pink granulation tissue. Left heel has draining sinus tract with purulent discharge and abkle to probe to bone.) NEUROLOGICAL: Cranial nerves II through XII grossly intact. Normal speech, gait not observed. PSYCH: Normal mood, normal affect. SKIN: Warm, dry, normal turgor, no rash Active Medications Generic Name Dose Route Start Last Admin Trade Name Freq PRN Reason Stop Dose Admin Calcium Acetate 1,334 mg 07/27/18 17:30 08/03/18 10:10 Phoslo - PO Not Given TIDCM [facility] Collagenase 1 applic 07/28/18 10:00 08/03/18 10:14 Santyl - TP 1 applic DAILY [facility] Administration Diphenhydramine HCl 50 mg 08/02/18 11:45 08/03/18 06:14 Benadryl Injection - IVPB 50 mg Q6H [facility] Administration Duloxetine HCl 20 mg 08/03/18 10:00 08/03/18 10:13 Cymbalta - PO Not Given DAILY [facility] Epoetin Arjun 4,000 unit 08/02/18 13:59 Epogen - IVPUSH 08/02/18 14:00 ONCE ONE Heparin Sodium (Porcine) 5,000 unit 07/27/18 22:00 08/03/18 10:13 Heparin - SQ Not Given BID [facility] Sodium Chloride 250 mls @ 3,000 mls/hr 08/01/18 13:59 Normal Saline - IV 08/02/18 13:59 PRN PRN Hypotension during Dialysis Meropenem 500 mg/ Dextrose 100 mls @ 200 mls/hr 08/02/18 15:15 08/03/18 10:13 IVPB 200 mls/hr DAILY [facility] Administration Lactobacillus Acidophilus 1 tab 08/02/18 15:15 08/03/18 10:11 Bacid - PO Not Given DAILY [facility] ASSESSMENT/PLAN: 52 yo M PMH chronic Cdiff (recently tx), ESRD (MWF), presents to the hospital with recurrent watery diarrhea now s/p rapid response for hypotension. hypotension resolved w/ IVF NEURO AOX3 NAD no active issues Cardiac/pulm/GI/ID Diarrhea - r/o Colitis Hypovolemia Severe Sepsis - responsive to IVF. Osteomyelitis Lactic Acidosis - resolved bilateral heel wounds/decubitus ulcers chronic Cdiff (recently tx) maintain MAP>65 IVF boluses as needed, avoid fluid overload especially in ESRD O2 as needed Patient has been treated for C. Diff and C. Diff is now negative for toxin/ antigen f/u C diff PCR to confirm, given continuing diarrhea and sepsis UA UCx-patient refusing straight cath left heel had some purulent drainage expressed and this was sent for wound culture wound cx 08/01/18 - lac ferm and non ferm Gnb, staph L coag pos, strep group B f/u HIV, stool cx, ova/para bcx neg CRP 17.7, ESR 20 c/w meropenem, no allergic rexn noted so far. Will use Aztreonam if patient is allergic. GI follow up for Hep B as tenofivir is on hold due to possible side effect of diarrhea GI consult ID consult RENAL monitor Cr refusing loya unable to do dialysis today as access not working renal consult refusing epogen IVF boluses as needed ENT - hearing loss? Patient seen by ENT for hearing loss. Consult appreciated. Questionable true hearing loss. Patient can follow up as outpatient for testing. DERM benadryl for rash monitor for allergic rexns to meds c/w meropenem, no allergic rexn noted so far. ENDO History of DM Patient states he is no longer diabetic sugars have been stable on BMPs Psych Depression psych consult Cymbalta 20mg po od FEN IVF boluses as needed replete prn renal diet, lactose free ppx SQH bacid DISPO pt is stable for transfer to the floors. further care per primary team/PCP Visit type - Emergency Visit Emergency Visit: Yes ED Registration Date: 07/24/18 Care time: The patient presented to the Emergency Department on the above date and was hospitalized for further evaluation of their emergent condition. - New Patient This patient is new to me today: Yes Date on this admission: 08/03/18 - Critical Care Critical Care patient: Yes Total Critical Care Time (in minutes): 36 Critical Care Statement: The care of this patient involved high complexity decision making to prevent further life threatening deterioration of the patient 's condition and/or to evaluate & treat vital organ system(s) failure or risk of failure.
--- NOTE | 2018-08-03 13:34 | PN ---
Progress Note, Physician History of Present Illness: patient stable now bp stable patient agreed to take abx now hearing better seen by psychiatrist - Current Medication List Current Medications: Active Medications Calcium Acetate (Phoslo -) 1,334 mg PO TIDCM [facility] Last Admin: 08/03/18 12:27 Dose: Not Given Collagenase (Santyl -) 1 applic TP DAILY [facility] Last Admin: 08/03/18 10:14 Dose: 1 applic Diphenhydramine HCl (Benadryl Injection -) 50 mg IVPB Q6H [facility] Last Admin: 08/03/18 12:27 Dose: 50 mg Duloxetine HCl (Cymbalta -) 20 mg PO DAILY [facility] Last Admin: 08/03/18 10:13 Dose: Not Given Epoetin Arjun (Epogen -) 4,000 unit IVPUSH ONCE ONE Stop: 08/02/18 14:00 Heparin Sodium (Porcine) (Heparin -) 5,000 unit SQ BID [facility] Last Admin: 08/03/18 10:13 Dose: Not Given Sodium Chloride (Normal Saline -) 250 mls @ 3,000 mls/hr IV PRN PRN PRN Reason: Hypotension during Dialysis Stop: 08/02/18 13:59 Meropenem 500 mg/ Dextrose 100 mls @ 200 mls/hr IVPB DAILY [facility] Last Admin: 08/03/18 10:13 Dose: 200 mls/hr Lactobacillus Acidophilus (Bacid -) 1 tab PO DAILY [facility] Last Admin: 08/03/18 10:11 Dose: Not Given - Objective Vital Signs: Vital Signs Temperature 98.2 F 08/03/18 10:01 Pulse Rate 96 H 08/03/18 12:29 Respiratory Rate 18 08/03/18 12:29 Blood Pressure 127/72 08/03/18 12:29 O2 Sat by Pulse Oximetry (%) 100 08/03/18 08:56 Constitutional: Yes: No Distress, Calm Cardiovascular: Yes: Regular Rate and Rhythm Respiratory: Yes: Regular, CTA Bilaterally Gastrointestinal: Yes: Normal Bowel Sounds, Soft Musculoskeletal: Yes: WNL Extremities: Yes: Other Wound/Incision: Yes: Dressing Dry and Intact Neurological: Yes: Alert, Oriented Psychiatric: Yes: Alert, Oriented Labs: CBC, BMP 08/02/18 07:23 08/02/18 07:23 INR, PTT INR 1.01 (0.83-1.09) 07/24/18 08:30 - ....Imaging Chest X-ray: Report Reviewed, Image Reviewed Assessment/Plan Problem List - Problems (1) Acute diarrhea Code(s): R19.7 - DIARRHEA, UNSPECIFIED (2) Bilateral pressure ulcer of feet Code(s): L89.899 - PRESSURE ULCER OF OTHER SITE, UNSPECIFIED STAGE (3) C. difficile colitis Code(s): A04.72 - ENTEROCOLITIS D/T CLOSTRIDIUM DIFFICILE, NOT SPCF RECUR (4) Chronic diarrhea Code(s): K52.9 - NONINFECTIVE GASTROENTERITIS AND COLITIS, UNSPECIFIED (5) Diabetic foot ulcer Code(s): E11.621 - TYPE 2 DIABETES MELLITUS WITH FOOT ULCER; L97.509 - NON- PRESSURE CHRONIC ULCER OTH PRT UNSP FOOT W UNSP SEVERITY Qualifiers: Diabetic foot ulcer location: heel Diabetes mellitus type: other specified (including JADON) Laterality: unspecified laterality Non-pressure ulcer stage : unspecified non-pressure ulcer stage Qualified Code(s): E13.621 - Other specified diabetes mellitus with foot ulcer; L97.409 - Non-pressure chronic ulcer of unspecified heel and midfoot with unspecified severity (6) ESRD (end stage renal disease) Code(s): N18.6 - END STAGE RENAL DISEASE (7) Generalized weakness Code(s): R53.1 - WEAKNESS (8) Sacral decubitus ulcer Code(s): L89.159 - PRESSURE ULCER OF SACRAL REGION, UNSPECIFIED STAGE 9 left heel wound patient in icu patient currently refusing all abx plan continue abx rest continue current mgmt hydration rest as per icu awaiting cdiff pcr nutrition cc time 40 min
--- NOTE | 2018-08-03 15:04 | PN ---
Teaching Attending Note Name of Resident: Serafin Bernal ATTENDING PHYSICIAN STATEMENT I saw and evaluated the patient. I reviewed the resident's note and discussed the case with the resident. I agree with the resident's findings and plan as documented. SUBJECTIVE: Patient seen and examined in the ICU. Hemodynamics stable overnight. No CP or SOB. Refusing various medications. OBJECTIVE: Intake & Output 07/31/18 08/01/18 08/02/18 08/03/18 23:59 23:59 23:59 23:59 Intake Total 380 3730 1400 150 Balance 380 3730 1400 150 Weight 195 lb 14.4 oz Last Vital Signs Temp Pulse Resp BP Pulse Ox 98.6 F 94 H 18 129/74 100 08/03/18 13:59 08/03/18 13:59 08/03/18 13:59 08/03/18 13:59 08/03/18 08:56 Active Medications Calcium Acetate (Phoslo -) 1,334 mg PO TIDCM [facility] Last Admin: 08/03/18 12:27 Dose: Not Given Collagenase (Santyl -) 1 applic TP DAILY [facility] Last Admin: 08/03/18 10:14 Dose: 1 applic Diphenhydramine HCl (Benadryl Injection -) 50 mg IVPB Q6H [facility] Last Admin: 08/03/18 12:27 Dose: 50 mg Duloxetine HCl (Cymbalta -) 20 mg PO DAILY [facility] Last Admin: 08/03/18 10:13 Dose: Not Given Epoetin Arjun (Epogen -) 4,000 unit IVPUSH ONCE ONE Stop: 08/02/18 14:00 Heparin Sodium (Porcine) (Heparin -) 5,000 unit SQ BID [facility] Last Admin: 08/03/18 10:13 Dose: Not Given Sodium Chloride (Normal Saline -) 250 mls @ 3,000 mls/hr IV PRN PRN PRN Reason: Hypotension during Dialysis Stop: 08/02/18 13:59 Meropenem 500 mg/ Dextrose 100 mls @ 200 mls/hr IVPB DAILY [facility] Last Admin: 08/03/18 10:13 Dose: 200 mls/hr Lactobacillus Acidophilus (Bacid -) 1 tab PO DAILY [facility] Last Admin: 08/03/18 10:11 Dose: Not Given Gen: NAD at rest, hard of hearing Heart: RRR Lung: decreased breath sounds at the bases Abd: soft, nontender Ext: no edema ASSESSMENT AND PLAN: Diarrhea - r/o Colitis Hypovolemia r/o Sepsis Lactic Acidosis ESRD on HD r/o Drug Rash Osteomyelitis Hearing Loss - antibiotics per ID - f/u cultures - IVF boluses as needed - benadryl for rash - HD per renal - DVT prophylaxis - Floor Dr Alonso
--- NOTE | 2018-08-03 16:13 | PN ---
Progress Note, Physician History of Present Illness: Pt seen and examined at bedside. He says that his hearing is improved. He was able to hear everything I said and was able to converse with me. He denies shortness of breath. His fistula is clotted and he was unable to dialyze today. - Current Medication List Current Medications: Active Medications Calcium Acetate (Phoslo -) 1,334 mg PO TIDCM [facility] Last Admin: 08/03/18 12:27 Dose: Not Given Collagenase (Santyl -) 1 applic TP DAILY [facility] Last Admin: 08/03/18 10:14 Dose: 1 applic Diphenhydramine HCl (Benadryl Injection -) 50 mg IVPB Q6H [facility] Last Admin: 08/03/18 12:27 Dose: 50 mg Duloxetine HCl (Cymbalta -) 20 mg PO DAILY [facility] Last Admin: 08/03/18 10:13 Dose: Not Given Epoetin Arjun (Epogen -) 4,000 unit IVPUSH ONCE ONE Stop: 08/02/18 14:00 Heparin Sodium (Porcine) (Heparin -) 5,000 unit SQ BID [facility] Last Admin: 08/03/18 10:13 Dose: Not Given Sodium Chloride (Normal Saline -) 250 mls @ 3,000 mls/hr IV PRN PRN PRN Reason: Hypotension during Dialysis Stop: 08/02/18 13:59 Meropenem 500 mg/ Dextrose 100 mls @ 200 mls/hr IVPB DAILY [facility] Last Admin: 08/03/18 10:13 Dose: 200 mls/hr Lactobacillus Acidophilus (Bacid -) 1 tab PO DAILY [facility] Last Admin: 08/03/18 10:11 Dose: Not Given - Objective Vital Signs: Vital Signs Temperature 98.6 F 08/03/18 13:59 Pulse Rate 94 H 08/03/18 13:59 Respiratory Rate 18 08/03/18 13:59 Blood Pressure 129/74 08/03/18 13:59 O2 Sat by Pulse Oximetry (%) 100 08/03/18 08:56 Constitutional: Yes: Calm Eyes: Yes: Conjunctiva Clear HENT: Yes: Atraumatic Cardiovascular: Yes: S1, S2 Respiratory: Yes: CTA Bilaterally Gastrointestinal: Yes: Soft Genitourinary: Yes: WNL Extremities: Yes: Other (left arm fistula - no thrill or bruit) Neurological: Yes: Oriented Psychiatric: Yes: Oriented Labs: CBC, BMP 08/02/18 07:23 08/02/18 07:23 INR, PTT INR 1.01 (0.83-1.09) 07/24/18 08:30 Problem List - Problems (1) ESRD (end stage renal disease) Code(s): N18.6 - END STAGE RENAL DISEASE Assessment/Plan Current Medications Generic Name Dose Route Start Last Admin Trade Name Freq PRN Reason Stop Dose Admin Calcium Acetate 1,334 mg 07/27/18 17:30 08/03/18 12:27 Phoslo - PO Not Given TIDCM [facility] Collagenase 1 applic 07/28/18 10:00 08/03/18 10:14 Santyl - TP 1 applic DAILY [facility] Administration Diphenhydramine HCl 50 mg 08/02/18 11:45 08/03/18 12:27 Benadryl Injection - IVPB 50 mg Q6H [facility] Administration Duloxetine HCl 20 mg 08/03/18 10:00 08/03/18 10:13 Cymbalta - PO Not Given DAILY [facility] Epoetin Arjun 4,000 unit 08/02/18 13:59 Epogen - IVPUSH 08/02/18 14:00 ONCE ONE Heparin Sodium (Porcine) 5,000 unit 07/27/18 22:00 08/03/18 10:13 Heparin - SQ Not Given BID [facility] Sodium Chloride 250 mls @ 3,000 mls/hr 08/01/18 13:59 Normal Saline - IV 08/02/18 13:59 PRN PRN Hypotension during Dialysis Meropenem 500 mg/ Dextrose 100 mls @ 200 mls/hr 08/02/18 15:15 08/03/18 10:13 IVPB 200 mls/hr DAILY [facility] Administration Lactobacillus Acidophilus 1 tab 08/02/18 15:15 08/03/18 10:11 Bacid - PO Not Given DAILY [facility] Impression 1. ESRD 2. anemia 3. hypokalemia 4. Hep B 5. diarrhea 6. depression 7. non-compliance with HD 8. acidosis - metabolic 9. hypocalcemia 10. hearing loss 11. sepsis Plan - access is clotted, vascular for thrombectomy - HD tomorrow after access repaired - bp improved - ID follow up - GI follow up for Hep B as tenofivir is on hold - will follow
[2018-08-04 05:46] LABS: BASO % 0.5 % (0-2.0); EOS % 2.4 % (0-4.5); HEMATOCRIT 27.4 % (35.4-49); HEMOGLOBIN 8.5 GM/dL (11.7-16.9); LYMPH % 14.3 % (8-40); MCH 30.1 pg (25.7-33.7); MEAN CELL VOLUME 97.2 fl (80-96); MEAN PLT VOLUME 9.2 fl (7.5-11.1); MONO % 5.1 % (3.8-10.2); NEUT % 77.7 % (42.8-82.8); PLATELET COUNT 113 K/MM3 (134-434); RBC 2.82 M/mm3 (4.00-5.60); RDW 15.8 % (11.9-15.9); WHITE BLOOD COUNT 9.9 K/mm3 (4.0-10.0)
[2018-08-04 06:43] LABS: ALK PHOS 70 U/L (45-117); ANION GAP 7 MMOL/L (8-16); BILIRUBIN,TOTAL 0.4 mg/dL (0.2-1); BLOOD UREA NITROGEN 37 mg/dL (7-18); CALCIUM 7.3 mg/dL (8.5-10.1); CHLORIDE 111 mmol/L (98-107); CO2 24 mmol/L (21-32); GLUCOSE,RANDOM 69 mg/dL (74-106); MAGNESIUM 2.3 mg/dL (1.8-2.4); PHOSPHOROUS 2.5 mg/dL (2.5-4.9); POTASSIUM 3.5 mmol/L (3.5-5.1); SGOT/AST 7 U/L (15-37); SGPT/ALT 8 U/L (13-61); SODIUM 142 mmol/L (136-145); TOT PROT 4.7 g/dl (6.4-8.2)
--- NOTE | 2018-08-04 08:25 | PN ---
Physical Exam: SUBJECTIVE: Patient seen and examined in the ICU. hypotension has resolved w/ IVF. no complaints. watery diarrhea overnight requiring rectal tube to help w/ incontinent dermatitis. unable to do dialysis today as access not working. NPO at midnight for thrombectomy of clot today. will go to HD after OBJECTIVE: Vital Signs Period Temp Pulse Resp BP Sys/Gutierrez Pulse Ox Last 24 Hr 98.2 F-98.7 F 81-105 12-18 104-147/57-95 100 GENERAL: AOX3 NAD, hard of hearing HEENT: NCAT sclera anicteric, conjunctiva clear. No ptosis. MMM NECK: Trachea midline, full range of motion, supple. LUNGS: CTAB HEART: RR tachy, S1, S2 without m/r/g ABDOMEN: Soft, NTND, hyperactive bowel sounds. +rectal tube due to incontinent dermatitis EXTREMITIES: 2+ pulses, warm, well-perfused, no edema. Pressure Ulcer ( bilateral heel decubitus ulcer. Right heel wound has a clean wound base with pink granulation tissue. Left heel has draining sinus tract with purulent discharge and abkle to probe to bone.). LUE AV fistula, neg bruit/thrill, clotted off. NEUROLOGICAL: Cranial nerves II through XII grossly intact. Normal speech, gait not observed. PSYCH: Normal mood, normal affect. SKIN: Warm, dry, normal turgor, no rash Laboratory Results - last 24 hr 08/04/18 08/04/18 05:30 05:30 WBC 9.9 RBC 2.82 L Hgb 8.5 L Hct 27.4 L MCV 97.2 H MCH 30.1 MCHC 31.0 L RDW 15.8 Plt Count 113 L MPV 9.2 Absolute Neuts (auto) 7.7 Neutrophils % 77.7 Lymphocytes % 14.3 D Monocytes % 5.1 Eosinophils % 2.4 D Basophils % 0.5 D Nucleated RBC % 0 Sodium 142 Potassium 3.5 Chloride 111 H Carbon Dioxide 24 Anion Gap 7 L BUN 37 H Creatinine 8.0 H* Creat Clearance w eGFR 7.18 Random Glucose 69 L Calcium 7.3 L Phosphorus 2.5 Magnesium 2.3 Total Bilirubin 0.4 AST 7 L ALT 8 L Alkaline Phosphatase 70 Total Protein 4.7 L Albumin 2.0 L Active Medications Generic Name Dose Route Start Last Admin Trade Name Freq PRN Reason Stop Dose Admin Calcium Acetate 1,334 mg 07/27/18 17:30 08/03/18 16:41 Phoslo - PO Not Given TIDCM [facility] Collagenase 1 applic 07/28/18 10:00 08/03/18 10:14 Santyl - TP 1 applic DAILY [facility] Administration Diphenhydramine HCl 50 mg 08/02/18 11:45 08/04/18 05:30 Benadryl Injection - IVPB 50 mg Q6H [facility] Administration Duloxetine HCl 20 mg 08/03/18 10:00 08/03/18 10:13 Cymbalta - PO Not Given DAILY [facility] Epoetin Arjun 4,000 unit 08/02/18 13:59 Epogen - IVPUSH 08/02/18 14:00 ONCE ONE Heparin Sodium (Porcine) 5,000 unit 07/27/18 22:00 08/03/18 22:53 Heparin - SQ 5,000 unit BID [facility] Administration Sodium Chloride 250 mls @ 3,000 mls/hr 08/01/18 13:59 Normal Saline - IV 08/02/18 13:59 PRN PRN Hypotension during Dialysis Meropenem 500 mg/ Dextrose 100 mls @ 200 mls/hr 08/02/18 15:15 08/03/18 10:13 IVPB 200 mls/hr DAILY [facility] Administration Lactobacillus Acidophilus 1 tab 08/02/18 15:15 08/03/18 10:11 Bacid - PO Not Given DAILY [facility] ASSESSMENT/PLAN: 52 yo M PMH chronic Cdiff (recently tx), ESRD (MWF), presents to the hospital with recurrent watery diarrhea now s/p rapid response for hypotension. hypotension resolved w/ IVF. NEURO AOX3 NAD no active issues Cardiac/pulm/GI/ID Diarrhea - r/o Colitis Hypovolemia Severe Sepsis - responsive to IVF. Osteomyelitis Lactic Acidosis - resolved bilateral heel wounds/decubitus ulcers chronic Cdiff (recently tx) maintain MAP>65 IVF boluses as needed, avoid fluid overload especially in ESRD O2 as needed Patient has been treated for C. Diff and C. Diff is now negative for toxin/ antigen f/u C diff PCR to confirm, given continuing diarrhea and sepsis UA UCx-patient refusing straight cath left heel had some purulent drainage expressed and this was sent for wound culture wound cx 08/01/18 - lac ferm and non ferm Gnb, staph L coag pos, strep group B f/u HIV, stool cx, ova/para bcx neg CRP 17.7, ESR 20 c/w meropenem, no allergic rexn noted so far. Will use Aztreonam if patient is allergic. watery diarrhea overnight requiring rectal tube to help w/ incontinent dermatitis. GI follow up for Hep B as tenofivir is on hold due to possible side effect of diarrhea GI consult ID consult RENAL monitor Cr refusing loya unable to do dialysis today as access not working, NPO overnight for thrombectomy of clot today renal consult refusing epogen IVF boluses as needed ENT - hearing loss? Patient seen by ENT for hearing loss. Consult appreciated. Questionable true hearing loss. Patient can follow up as outpatient for testing. DERM benadryl for rash monitor for allergic rexns to meds c/w meropenem, no allergic rexn noted so far. ENDO History of DM Patient states he is no longer diabetic sugars have been stable on BMPs Psych Depression psych consult Cymbalta 20mg po od FEN IVF boluses as needed replete prn NPO for OR today. ppx SQH bacid DISPO OR today for fistula repair. HD after. pt is stable for transfer to the floors. further care per primary team/PCP Visit type - Emergency Visit Emergency Visit: Yes ED Registration Date: 07/24/18 Care time: The patient presented to the Emergency Department on the above date and was hospitalized for further evaluation of their emergent condition. - New Patient This patient is new to me today: Yes Date on this admission: 08/04/18 - Critical Care Critical Care patient: Yes Total Critical Care Time (in minutes): 37 Critical Care Statement: The care of this patient involved high complexity decision making to prevent further life threatening deterioration of the patient 's condition and/or to evaluate & treat vital organ system(s) failure or risk of failure.
[2018-08-04] MEDS: CALCIUM ACETATE 667 MG CAPSULE (FP) PO SCH ×3 (09:00→18:25)
[2018-08-04] MEDS ORDERED: PT OWN MED DRAWER 7, Y5N ONE ×2 (09:09→16:47)
[2018-08-04] MEDS ORDERED: LIDOCAINE HCL 1%, 10 MG/ML (20ML VIAL) ONE (09:53)
[2018-08-04] MEDS ORDERED: HEPARIN NA (PORCINE) 5,000 UNITS/ML 1ML VIAL ONE ×2 (09:53→11:31)
--- NOTE | 2018-08-04 09:55 | PN ---
Progress Note (short form) - Note Progress Note: pt seen/ examined in icu chart reviewed/ events noted/ discussed with nursing staff awake + diarrhea rectal tube + afebrile for or today for clotted fistula Vital Signs Temp 98.6 F 08/04/18 06:00 Pulse 77 08/04/18 08:00 Resp 11 08/04/18 08:00 BP 126/68 08/04/18 08:00 Pulse Ox 100 08/03/18 08:56 Intake & Output 08/03/18 08/03/18 08/04/18 11:59 23:59 11:59 Intake Total 370 100 Output Total 0 Balance 370 100 Weight 195 lb 14.4 oz 196 lb 8 oz Intake: IVPB 250 100 Oral 120 0 Output: Urine 0 Void 0 Other: Voiding Method Incontinent Incontinent # Unmeasured Voids Void 1 1 Bowel Movement Yes Yes: watery, constant Yes: watery # Bowel Movements 2 1 Weight Measurement Method Built in Bedscale Built in Bedscale Physical Exam Constitutional: Yes: No Distress, Calm. Eyes: Yes: Conjunctiva Clear Neck: Yes: Supple Cardiovascular: Yes: Regular Rate and Rhythm Gastrointestinal: Yes: Normal Bowel Sounds, Soft, not tender. Edema: yes- hands Integumentary: Yes: Other (history of heel ulcers--- follows at wound care.) Neurological: Yes: Alert + rectal tube Assessment/Plan ACTIVE ISSUES + ve diarrhea clotted fistula hearing loss-- better Mood disorder Heel wound Hep B For or today for clotted fistula meds reviewed continue present care wound care/ i/d to follow will discuss with i/d will follow Problem List - Problems (1) Acute diarrhea Code(s): R19.7 - DIARRHEA, UNSPECIFIED (2) Bilateral pressure ulcer of feet Code(s): L89.899 - PRESSURE ULCER OF OTHER SITE, UNSPECIFIED STAGE (3) ESRD (end stage renal disease) Code(s): N18.6 - END STAGE RENAL DISEASE
[2018-08-04] MEDS: COLLAGENASE CLOSTRIDIUM HIST. 30 GRAMS TUBE TP SCH (10:01)
[2018-08-04] MEDS: HEPARIN NA (PORCINE) 5,000 UNITS/ML 1ML VIAL SQ SCH ×3 (10:03→21:28)
[2018-08-04] MEDS ORDERED: MIDAZOLAM HCL 2 MG/2 ML SINGLE DOSE VIAL ONE ×2 (11:07→11:10)
[2018-08-04] MEDS ORDERED: ceFAZolin SODIUM 1 GM VIAL ONE (11:10)
[2018-08-04] MEDS ORDERED: ceFAZolin SODIUM 1 GM VIAL IVPB ONE (11:17)
[2018-08-04] MEDS ORDERED: LIDOCAINE HCL 1%, 10 MG/ML (50 mL VIAL) IJ ONE ×2 (11:26)
--- NOTE | 2018-08-04 11:46 | PN ---
Teaching Attending Note Name of Resident: Serafin Bernal ATTENDING PHYSICIAN STATEMENT I saw and evaluated the patient. I reviewed the resident's note and discussed the case with the resident. I agree with the resident's findings and plan as documented. SUBJECTIVE: Patient seen and examined in the ICU. Hemodynamics stable overnight. No CP or SOB. HD access clotted. For OR today. OBJECTIVE: Intake & Output 08/01/18 08/02/18 08/03/18 08/04/18 23:59 23:59 23:59 23:59 Intake Total 3730 1400 370 100 Output Total 0 Balance 3730 1400 370 100 Weight 195 lb 14.4 oz 196 lb 8 oz Last Vital Signs Temp Pulse Resp BP Pulse Ox 98.7 F 78 12 136/70 100 08/04/18 10:13 08/04/18 10:13 08/04/18 10:13 08/04/18 10:13 08/03/18 08:56 Active Medications Calcium Acetate (Phoslo -) 1,334 mg PO TIDCM [facility] Last Admin: 08/04/18 09:00 Dose: Not Given Collagenase (Santyl -) 1 applic TP DAILY [facility] Last Admin: 08/04/18 10:01 Dose: 1 applic Diphenhydramine HCl (Benadryl Injection -) 50 mg IVPB Q6H [facility] Last Admin: 08/04/18 05:30 Dose: 50 mg Duloxetine HCl (Cymbalta -) 20 mg PO DAILY [facility] Last Admin: 08/03/18 10:13 Dose: Not Given Epoetin Arjun (Epogen -) 4,000 unit IVPUSH ONCE ONE Stop: 08/02/18 14:00 Heparin Sodium (Porcine) (Heparin -) 5,000 unit SQ BID [facility] Last Admin: 08/04/18 10:03 Dose: Not Given Sodium Chloride (Normal Saline -) 250 mls @ 3,000 mls/hr IV PRN PRN PRN Reason: Hypotension during Dialysis Stop: 08/02/18 13:59 Meropenem 500 mg/ Dextrose 100 mls @ 200 mls/hr IVPB DAILY [facility] Last Admin: 08/03/18 10:13 Dose: 200 mls/hr Lactobacillus Acidophilus (Bacid -) 1 tab PO DAILY [facility] Last Admin: 08/03/18 10:11 Dose: Not Given Gen: NAD at rest, hard of hearing Heart: RRR Lung: decreased breath sounds at the bases Abd: soft, nontender Ext: no edema Laboratory Results - last 24 hr 08/04/18 08/04/18 05:30 05:30 WBC 9.9 RBC 2.82 L Hgb 8.5 L Hct 27.4 L MCV 97.2 H MCH 30.1 MCHC 31.0 L RDW 15.8 Plt Count 113 L MPV 9.2 Absolute Neuts (auto) 7.7 Neutrophils % 77.7 Lymphocytes % 14.3 D Monocytes % 5.1 Eosinophils % 2.4 D Basophils % 0.5 D Nucleated RBC % 0 Sodium 142 Potassium 3.5 Chloride 111 H Carbon Dioxide 24 Anion Gap 7 L BUN 37 H Creatinine 8.0 H* Creat Clearance w eGFR 7.18 Random Glucose 69 L Calcium 7.3 L Phosphorus 2.5 Magnesium 2.3 Total Bilirubin 0.4 AST 7 L ALT 8 L Alkaline Phosphatase 70 Total Protein 4.7 L Albumin 2.0 L ASSESSMENT AND PLAN: Diarrhea - r/o Colitis Hypovolemia r/o Sepsis Lactic Acidosis ESRD on HD r/o Drug Rash Osteomyelitis Hearing Loss - antibiotics per ID - f/u cultures - IVF boluses as needed - benadryl for rash - HD per renal - DVT prophylaxis - For OR today for declotting - Floor Dr Alonso
[2018-08-04] MEDS: MEROPENEM 500 MG in DEXTROSE 5%-WATER 100 ML IVPB SCH (12:56)
[2018-08-04] MEDS: LACTOBACILLUS ACIDOPHILUS 1 TABLET PO SCH (12:57)
[2018-08-04] MEDS: DULoxetine HCL 20 MG CAPSULE.DR (FP) PO SCH (12:57)
[2018-08-04] MEDS ORDERED: EPOETIN ALFA 2,000 UNIT/1 ML VIAL IVPUSH ONE (13:45)
[2018-08-04] MEDS ORDERED: BANATROL PLUS POWDER PACKET PO SCH (14:00)
--- NOTE | 2018-08-04 14:30 | OP ---
Operative Note - Note: Operative Date: 08/04/18 Pre-Operative Diagnosis: clotted left avg Operation: Venogram, suction thrombectomy, venoplasty left avf Post-Operative Diagnosis: Same as Pre-op Surgeon: Ki Villalobos Anesthesia: Fractional Estimated Blood Loss (mls): 30 Operative Report Dictated: Yes
--- NOTE | 2018-08-04 14:55 | PN ---
Progress Note, Physician History of Present Illness: patient post op thrombectomy done yesterday now getting dialysis had a loose bm bp stable hearing returning - Current Medication List Current Medications: Active Medications Calcium Acetate (Phoslo -) 1,334 mg PO TIDCM [facility] Last Admin: 08/04/18 12:55 Dose: 1,334 mg Collagenase (Santyl -) 1 applic TP DAILY [facility] Last Admin: 08/04/18 10:01 Dose: 1 applic Diphenhydramine HCl (Benadryl Injection -) 50 mg IVPB Q6H [facility] Last Admin: 08/04/18 12:56 Dose: 50 mg Duloxetine HCl (Cymbalta -) 20 mg PO DAILY [facility] Last Admin: 08/04/18 12:57 Dose: 20 mg Heparin Sodium (Porcine) (Heparin -) 5,000 unit SQ BID [facility] Last Admin: 08/04/18 10:03 Dose: Not Given Meropenem 500 mg/ Dextrose 100 mls @ 200 mls/hr IVPB DAILY [facility] Last Admin: 08/04/18 12:56 Dose: 200 mls/hr Lactobacillus Acidophilus (Bacid -) 1 tab PO DAILY [facility] Last Admin: 08/04/18 12:57 Dose: 1 tab - Objective Vital Signs: Vital Signs Temperature 98.7 F 08/04/18 14:40 Pulse Rate 102 H 08/04/18 14:45 Respiratory Rate 18 08/04/18 14:45 Blood Pressure 139/75 08/04/18 14:45 O2 Sat by Pulse Oximetry (%) 100 08/03/18 08:56 Constitutional: Yes: No Distress, Calm Cardiovascular: Yes: Regular Rate and Rhythm Respiratory: Yes: Regular, CTA Bilaterally Gastrointestinal: Yes: Normal Bowel Sounds, Soft Musculoskeletal: Yes: WNL Extremities: Yes: Other Wound/Incision: Yes: Dressing Dry and Intact Neurological: Yes: Alert, Oriented Psychiatric: Yes: Alert, Oriented Labs: CBC, BMP 08/04/18 05:30 08/04/18 05:30 INR, PTT INR 1.01 (0.83-1.09) 07/24/18 08:30 - ....Imaging Chest X-ray: Report Reviewed, Image Reviewed Assessment/Plan Problem List - Problems (1) Acute diarrhea Code(s): R19.7 - DIARRHEA, UNSPECIFIED (2) Bilateral pressure ulcer of feet Code(s): L89.899 - PRESSURE ULCER OF OTHER SITE, UNSPECIFIED STAGE (3) C. difficile colitis Code(s): A04.72 - ENTEROCOLITIS D/T CLOSTRIDIUM DIFFICILE, NOT SPCF RECUR (4) Chronic diarrhea Code(s): K52.9 - NONINFECTIVE GASTROENTERITIS AND COLITIS, UNSPECIFIED (5) Diabetic foot ulcer Code(s): E11.621 - TYPE 2 DIABETES MELLITUS WITH FOOT ULCER; L97.509 - NON- PRESSURE CHRONIC ULCER OTH PRT UNSP FOOT W UNSP SEVERITY Qualifiers: Diabetic foot ulcer location: heel Diabetes mellitus type: other specified (including JADON) Laterality: unspecified laterality Non-pressure ulcer stage : unspecified non-pressure ulcer stage Qualified Code(s): E13.621 - Other specified diabetes mellitus with foot ulcer; L97.409 - Non-pressure chronic ulcer of unspecified heel and midfoot with unspecified severity (6) ESRD (end stage renal disease) Code(s): N18.6 - END STAGE RENAL DISEASE (7) Generalized weakness Code(s): R53.1 - WEAKNESS (8) Sacral decubitus ulcer Code(s): L89.159 - PRESSURE ULCER OF SACRAL REGION, UNSPECIFIED STAGE 9 left heel wound patient in icu patient currently refusing all abx plan continue abx rest continue current mgmt hydration rest as per icu awaiting cdiff pcr nutrition if pcr negative then colonoscopy cc time 40 min
--- NOTE | 2018-08-04 17:33 | PN ---
Progress Note, Physician History of Present Illness: Pt seen and examined at bedside. He is getting HD. His hearing is now normal. - Current Medication List Current Medications: Active Medications Calcium Acetate (Phoslo -) 1,334 mg PO TIDCM [facility] Last Admin: 08/04/18 12:55 Dose: 1,334 mg Collagenase (Santyl -) 1 applic TP DAILY [facility] Last Admin: 08/04/18 10:01 Dose: 1 applic Diphenhydramine HCl (Benadryl Injection -) 50 mg IVPB Q6H [facility] Last Admin: 08/04/18 12:56 Dose: 50 mg Duloxetine HCl (Cymbalta -) 20 mg PO DAILY [facility] Last Admin: 08/04/18 12:57 Dose: 20 mg Heparin Sodium (Porcine) (Heparin -) 5,000 unit SQ BID [facility] Last Admin: 08/04/18 10:03 Dose: Not Given Meropenem 500 mg/ Dextrose 100 mls @ 200 mls/hr IVPB DAILY [facility] Last Admin: 08/04/18 12:56 Dose: 200 mls/hr Lactobacillus Acidophilus (Bacid -) 1 tab PO DAILY [facility] Last Admin: 08/04/18 12:57 Dose: 1 tab - Objective Vital Signs: Vital Signs Temperature 98.7 F 08/04/18 14:40 Pulse Rate 99 H 08/04/18 17:11 Respiratory Rate 18 08/04/18 17:11 Blood Pressure 147/81 08/04/18 17:11 O2 Sat by Pulse Oximetry (%) 100 08/03/18 08:56 Constitutional: Yes: Calm Eyes: Yes: Conjunctiva Clear HENT: Yes: Atraumatic Neck: Yes: Supple Cardiovascular: Yes: S1, S2 Respiratory: Yes: CTA Bilaterally Gastrointestinal: Yes: Soft Genitourinary: Yes: WNL Musculoskeletal: Yes: WNL Edema: Yes Edema: LLE: Trace, RLE: Trace Neurological: Yes: Oriented Psychiatric: Yes: Oriented Labs: CBC, BMP 08/04/18 05:30 08/04/18 05:30 INR, PTT INR 1.01 (0.83-1.09) 07/24/18 08:30 Problem List - Problems (1) ESRD (end stage renal disease) Code(s): N18.6 - END STAGE RENAL DISEASE Assessment/Plan Current Medications Generic Name Dose Route Start Last Admin Trade Name Freq PRN Reason Stop Dose Admin Calcium Acetate 1,334 mg 07/27/18 17:30 08/04/18 12:55 Phoslo - PO 1,334 mg TIDCM [facility] Administration Collagenase 1 applic 07/28/18 10:00 08/04/18 10:01 Santyl - TP 1 applic DAILY [facility] Administration Diphenhydramine HCl 50 mg 08/02/18 11:45 08/04/18 12:56 Benadryl Injection - IVPB 50 mg Q6H [facility] Administration Duloxetine HCl 20 mg 08/03/18 10:00 08/04/18 12:57 Cymbalta - PO 20 mg DAILY [facility] Administration Heparin Sodium (Porcine) 5,000 unit 07/27/18 22:00 08/04/18 10:03 Heparin - SQ Not Given BID [facility] Meropenem 500 mg/ Dextrose 100 mls @ 200 mls/hr 08/02/18 15:15 08/04/18 12:56 IVPB 200 mls/hr DAILY [facility] Administration Lactobacillus Acidophilus 1 tab 08/02/18 15:15 08/04/18 12:57 Bacid - PO 1 tab DAILY [facility] Administration Impression 1. ESRD 2. anemia 3. hypokalemia 4. Hep B 5. diarrhea 6. depression 7. non-compliance with HD 8. acidosis - metabolic 9. hypocalcemia 10. hearing loss 11. sepsis Plan - HD today - access is working - discussed with ID, follow up c.diff - bp improved - GI follow up for Hep B as tenofivir is on hold - will follow
[2018-08-04] MEDS ORDERED: LACTATED RINGERS SOLUTION 1000 ML INFUS.BAG IV ONE (20:40)
[2018-08-04] MEDS: BANATROL PLUS POWDER PACKET PO SCH ×2 (21:17→21:28)
[2018-08-05] MEDS: BANATROL PLUS POWDER PACKET PO SCH ×3 (06:27→22:38)
--- NOTE | 2018-08-05 08:01 | PN ---
Physical Exam: SUBJECTIVE: Patient seen and examined in the ICU. HD and AV fistula repair yesterday. refusing care and all meds including SQH overnight. Hearing has improved. OBJECTIVE: Vital Signs Period Temp Pulse Resp BP Sys/Gutierrez Pulse Ox Last 24 Hr 97.6 F-98.7 F 77-104 11-20 126-160/68-87 100 GENERAL: AOX3 NAD HEENT: NCAT sclera anicteric, conjunctiva clear. No ptosis. MMM NECK: Trachea midline, full range of motion, supple. LUNGS: CTAB HEART: RR tachy, S1, S2 without m/r/g ABDOMEN: Soft, NTND, hyperactive bowel sounds. +rectal tube due to incontinent dermatitis EXTREMITIES: 2+ pulses, warm, well-perfused, no edema. Pressure Ulcer ( bilateral heel decubitus ulcer. Right heel wound has a clean wound base with pink granulation tissue. Left heel has draining sinus tract with purulent discharge and abkle to probe to bone.). +LUE AV fistula NEUROLOGICAL: Cranial nerves II through XII grossly intact. Normal speech, gait not observed. PSYCH: Normal mood, normal affect. SKIN: Warm, dry, normal turgor, no rash Laboratory Results - last 24 hr 08/04/18 08/04/18 05:30 11:00 Creatinine 8.0 H* HIV 1&2 Antibody Screen Negative HIV P24 Antigen Negative Active Medications Generic Name Dose Route Start Last Admin Trade Name Freq PRN Reason Stop Dose Admin Calcium Acetate 1,334 mg 08/05/18 08:00 Phoslo - PO TIDCM [facility] Collagenase 1 applic 08/05/18 10:00 Santyl - TP DAILY [facility] Diphenhydramine HCl 50 mg 08/04/18 23:45 08/05/18 06:26 Benadryl Injection - IVPB 50 mg Q6H [facility] Administration Duloxetine HCl 20 mg 08/05/18 10:00 Cymbalta - PO DAILY [facility] Heparin Sodium (Porcine) 5,000 unit 08/04/18 22:00 08/04/18 21:28 Heparin - SQ Not Given BID [facility] Meropenem 500 mg/ Dextrose 100 mls @ 200 mls/hr 08/05/18 10:00 IVPB DAILY [facility] Lactobacillus Acidophilus 1 tab 08/05/18 10:00 Bacid - PO DAILY [facility] ASSESSMENT/PLAN: 52 yo M PMH chronic Cdiff (recently tx), ESRD (MWF), presents to the hospital with recurrent watery diarrhea now s/p rapid response for hypotension. hypotension resolved w/ IVF. NEURO AOX3 NAD no active issues Cardiac/pulm/GI/ID Diarrhea - r/o Colitis Hypovolemia Severe Sepsis - responsive to IVF. Osteomyelitis Lactic Acidosis - resolved bilateral heel wounds/decubitus ulcers chronic Cdiff (recently tx) maintain MAP>65 IVF boluses as needed, avoid fluid overload especially in ESRD O2 as needed Patient has been treated for C. Diff and C. Diff is now negative for toxin/ antigen f/u C diff PCR to confirm, given continuing diarrhea and sepsis UA UCx-patient refusing straight cath left heel had some purulent drainage expressed and this was sent for wound culture wound cx 08/01/18 - lac ferm and non ferm Gnb, staph L coag pos, strep group B f/u stool cx, ova/para HIV neg bcx neg CRP 17.7, ESR 20 c/w meropenem, no allergic rexn noted so far. Will use Aztreonam if patient is allergic. rectal tube to help w/ incontinent dermatitis. GI follow up for Hep B as tenofivir is on hold due to possible side effect of diarrhea GI consult ID consult RENAL monitor Cr refusing loya s/p HD yesterday and AV fistula repair renal consult refusing epogen IVF boluses as needed ENT - hearing loss? Patient seen by ENT for hearing loss. Consult appreciated. Questionable true hearing loss. Patient can follow up as outpatient for testing. Hearing has improved DERM benadryl for rash monitor for allergic rexns to meds c/w meropenem, no allergic rexn noted so far. ENDO History of DM Patient states he is no longer diabetic sugars have been stable on BMPs Psych Depression psych consult Cymbalta 20mg po od FEN IVF boluses as needed replete prn Renal, lactose free ppx SQH bacid DISPO pt is stable for transfer to the floors. further care per primary team/PCP Visit type - Emergency Visit Emergency Visit: Yes ED Registration Date: 07/24/18 Care time: The patient presented to the Emergency Department on the above date and was hospitalized for further evaluation of their emergent condition. - New Patient This patient is new to me today: Yes Date on this admission: 08/05/18 - Critical Care Critical Care patient: Yes Total Critical Care Time (in minutes): 38 Critical Care Statement: The care of this patient involved high complexity decision making to prevent further life threatening deterioration of the patient 's condition and/or to evaluate & treat vital organ system(s) failure or risk of failure.
[2018-08-05] MEDS ORDERED: PT OWN MED DRAWER 7, Y5N ONE (09:11)
[2018-08-05] MEDS: MEROPENEM 500 MG in DEXTROSE 5%-WATER 100 ML IVPB SCH (09:19)
[2018-08-05] MEDS: DULoxetine HCL 20 MG CAPSULE.DR (FP) PO SCH (09:30)
[2018-08-05] MEDS: LACTOBACILLUS ACIDOPHILUS 1 TABLET PO SCH (09:30)
[2018-08-05] MEDS: HEPARIN NA (PORCINE) 5,000 UNITS/ML 1ML VIAL SQ SCH ×2 (09:32→22:39)
[2018-08-05] MEDS: CALCIUM ACETATE 667 MG CAPSULE (FP) PO SCH ×3 (09:32→18:26)
[2018-08-05 09:51] LABS: BASO % 0.7 % (0-2.0); EOS % 1.9 % (0-4.5); HEMOGLOBIN 8.8 GM/dL (11.7-16.9); LYMPH % 15.9 % (8-40); MCH 31.5 pg (25.7-33.7); MCHC 33.8 g/dl (32.0-35.9); MEAN CELL VOLUME 93.3 fl (80-96); MEAN PLT VOLUME 8.9 fl (7.5-11.1); NEUT % 72.5 % (42.8-82.8); PLATELET COUNT 114 K/MM3 (134-434); RBC 2.79 M/mm3 (4.00-5.60); RDW 15.2 % (11.9-15.9); WHITE BLOOD COUNT 5.6 K/mm3 (4.0-10.0)
--- NOTE | 2018-08-05 10:18 | PN ---
Teaching Attending Note Name of Resident: Serafin Bernal ATTENDING PHYSICIAN STATEMENT I saw and evaluated the patient. I reviewed the resident's note and discussed the case with the resident. I agree with the resident's findings and plan as documented. SUBJECTIVE: Patient seen and examined in the ICU. S/P declotting yesterday and HD. Hemodynamics stable overnight. No CP or SOB. Still with GI symptoms. OBJECTIVE: Intake & Output 08/02/18 08/03/18 08/04/18 08/05/18 23:59 23:59 23:59 23:59 Intake Total 1400 370 600 100 Output Total 0 10 Balance 1400 370 590 100 Weight 195 lb 14.4 oz 196 lb 8 oz Last Vital Signs Temp Pulse Resp BP Pulse Ox 97.6 F 91 H 13 140/74 100 08/05/18 06:00 08/05/18 06:00 08/05/18 06:00 08/05/18 06:00 08/04/18 20:41 Active Medications Calcium Acetate (Phoslo -) 1,334 mg PO TIDCM [facility] Last Admin: 08/05/18 09:32 Dose: Not Given Collagenase (Santyl -) 1 applic TP DAILY [facility] Diphenhydramine HCl (Benadryl Injection -) 50 mg IVPB Q6H [facility] Last Admin: 08/05/18 06:26 Dose: 50 mg Duloxetine HCl (Cymbalta -) 20 mg PO DAILY [facility] Last Admin: 08/05/18 09:30 Dose: 20 mg Heparin Sodium (Porcine) (Heparin -) 5,000 unit SQ BID [facility] Last Admin: 08/05/18 09:32 Dose: Not Given Meropenem 500 mg/ Dextrose 100 mls @ 200 mls/hr IVPB DAILY [facility] Last Admin: 08/05/18 09:19 Dose: 200 mls/hr Lactobacillus Acidophilus (Bacid -) 1 tab PO DAILY [facility] Last Admin: 08/05/18 09:30 Dose: 1 tab Gen: NAD at rest, hard of hearing Heart: RRR Lung: decreased breath sounds at the bases Abd: soft, nontender Ext: no edema Laboratory Results - last 24 hr 08/04/18 08/05/18 11:00 09:25 WBC 5.6 RBC 2.79 L Hgb 8.8 L Hct 26.0 L MCV 93.3 MCH 31.5 MCHC 33.8 RDW 15.2 Plt Count 114 L MPV 8.9 Absolute Neuts (auto) 4.1 Neutrophils % 72.5 Lymphocytes % 15.9 Monocytes % 9.0 Eosinophils % 1.9 Basophils % 0.7 Nucleated RBC % 0 HIV 1&2 Antibody Screen Negative HIV P24 Antigen Negative ASSESSMENT AND PLAN: Diarrhea - r/o Colitis Hypovolemia r/o Sepsis Lactic Acidosis ESRD on HD r/o Drug Rash Osteomyelitis Hearing Loss - antibiotics per ID - f/u cultures - IVF boluses as needed - benadryl for rash - HD per renal - DVT prophylaxis - Floor Dr Alonso
[2018-08-05 10:31] LABS: ALBUMIN 2.1 g/dl (3.4-5.0); ALK PHOS 69 U/L (45-117); ANION GAP 10 MMOL/L (8-16); BILIRUBIN,TOTAL 0.3 mg/dL (0.2-1); BLOOD UREA NITROGEN 22 mg/dL (7-18); CALCIUM 7.3 mg/dL (8.5-10.1); CHLORIDE 105 mmol/L (98-107); CO2 27 mmol/L (21-32); CREATININE 5.5 mg/dL (0.55-1.3); GLUCOSE,RANDOM 87 mg/dL (74-106); MAGNESIUM 2.1 mg/dL (1.8-2.4); PHOSPHOROUS 1.7 mg/dL (2.5-4.9); POTASSIUM 3.3 mmol/L (3.5-5.1); SGOT/AST 4 U/L (15-37); SGPT/ALT 7 U/L (13-61); SODIUM 142 mmol/L (136-145); TOT PROT 4.8 g/dl (6.4-8.2)
--- NOTE | 2018-08-05 10:33 | PN ---
Progress Note (short form) - Note Progress Note: decreased bm appetite decreased no abd pain very depressed , does not want care per RN Vital Signs - 24 hr Vital Signs - 24 hr 08/04/18 08/04/18 08/04/18 15:15 15:45 16:00 Temperature Pulse Rate 94 H 94 H 100 H Respiratory 18 18 18 Rate Blood Pressure 136/77 143/77 160/80 O2 Sat by Pulse Oximetry (%) 08/04/18 08/04/18 08/04/18 16:15 16:45 17:15 Temperature Pulse Rate 95 H 99 H 99 H Respiratory 18 18 18 Rate Blood Pressure 143/78 160/80 147/81 O2 Sat by Pulse Oximetry (%) 08/04/18 08/04/18 08/04/18 17:45 17:50 18:00 Temperature 98.6 F Pulse Rate 101 H 104 H 103 H Respiratory 18 18 18 Rate Blood Pressure 129/82 139/81 152/79 O2 Sat by Pulse Oximetry (%) 08/04/18 08/04/18 08/05/18 20:41 22:00 02:00 Temperature 98 F 98 F Pulse Rate 99 H 91 H Respiratory 18 19 20 Rate Blood Pressure 137/76 144/75 O2 Sat by Pulse 100 Oximetry (%) 08/05/18 08/05/18 08/05/18 06:00 08:00 09:00 Temperature 97.6 F Pulse Rate 91 H 90 Respiratory 13 19 Rate Blood Pressure 140/74 158/97 O2 Sat by Pulse 100 Oximetry (%) 08/05/18 08/05/18 08/05/18 10:00 12:00 14:00 Temperature 98.3 F 98.4 F Pulse Rate 88 90 91 H Respiratory 18 19 20 Rate Blood Pressure 140/90 144/72 148/78 O2 Sat by Pulse Oximetry (%) Current Medications Generic Name Dose Route Start Last Admin Trade Name Freq PRN Reason Stop Dose Admin Calcium Acetate 1,334 mg 08/05/18 08:00 08/05/18 13:36 Phoslo - PO Not Given TIDCM IRVIN Collagenase 1 applic 08/05/18 10:00 Santyl - TP DAILY IRVIN Diphenhydramine HCl 50 mg 08/04/18 23:45 08/05/18 13:36 Benadryl Injection - IVPB 50 mg Q6H IRVIN Administration Duloxetine HCl 20 mg 08/05/18 10:00 08/05/18 09:30 Cymbalta - PO 20 mg DAILY IRVIN Administration Heparin Sodium (Porcine) 5,000 unit 08/04/18 22:00 08/05/18 09:32 Heparin - SQ Not Given BID IRVIN Meropenem 500 mg/ Dextrose 100 mls @ 200 mls/hr 08/05/18 10:00 08/05/18 09:19 IVPB 200 mls/hr DAILY IRVIN Administration Lactobacillus Acidophilus 1 tab 08/05/18 10:00 08/05/18 09:30 Bacid - PO 1 tab DAILY IRVIN Administration Laboratory Results - last 24 hr 08/05/18 08/05/18 09:25 09:25 WBC 5.6 RBC 2.79 L Hgb 8.8 L Hct 26.0 L MCV 93.3 MCH 31.5 MCHC 33.8 RDW 15.2 Plt Count 114 L MPV 8.9 Absolute Neuts (auto) 4.1 Neutrophils % 72.5 Lymphocytes % 15.9 Monocytes % 9.0 Eosinophils % 1.9 Basophils % 0.7 Nucleated RBC % 0 Sodium 142 Potassium 3.3 L Chloride 105 Carbon Dioxide 27 Anion Gap 10 BUN 22 H Creatinine 5.5 H Creat Clearance w eGFR 11.06 Random Glucose 87 Calcium 7.3 L Phosphorus 1.7 L Magnesium 2.1 Total Bilirubin 0.3 AST 4 L ALT 7 L Alkaline Phosphatase 69 Total Protein 4.8 L Albumin 2.1 L Constitutional: Yes: No Distress, Calm Eyes: Yes: Conjunctiva Clear Neck: Yes: Supple Cardiovascular: Yes: Regular Rate and Rhythm Gastrointestinal: Yes: Normal Bowel Sounds, Soft, not tender Edema: yes- hands Integumentary: Yes: Other (history of heel ulcers--- follows at wound care.) Neurological: Yes: Alert Assessment/Plan spoke with ID, GI does not appear to be SOB blood cultures negative he is refusing his meds 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 difficile colitis Code(s): A04.72 - ENTEROCOLITIS D/T CLOSTRIDIUM DIFFICILE, NOT SPCF RECUR (4) Chronic diarrhea Code(s): K52.9 - NONINFECTIVE GASTROENTERITIS AND COLITIS, UNSPECIFIED (5) Diabetic foot ulcer Code(s): E11.621 - TYPE 2 DIABETES MELLITUS WITH FOOT ULCER; L97.509 - NON- PRESSURE CHRONIC ULCER OTH PRT UNSP FOOT W UNSP SEVERITY Qualifiers: Diabetic foot ulcer location: heel Diabetes mellitus type: other specified (including JADON) Laterality: unspecified laterality Non-pressure ulcer stage : unspecified non-pressure ulcer stage Qualified Code(s): E13.621 - Other specified diabetes mellitus with foot ulcer; L97.409 - Non-pressure chronic ulcer of unspecified heel and midfoot with unspecified severity (6) ESRD (end stage renal disease) Code(s): N18.6 - END STAGE RENAL DISEASE (7) Generalized weakness Code(s): R53.1 - WEAKNESS (8) Sacral decubitus ulcer Code(s): L89.159 - PRESSURE ULCER OF SACRAL REGION, UNSPECIFIED STAGE
--- NOTE | 2018-08-05 12:46 | PN ---
Progress Note, Physician History of Present Illness: Pt seen and examined. Events noted. Has some mild nausea but denies abd pain/ vomiting. Remains afebrile. Small amt of loose stool. - Current Medication List Current Medications: Active Medications Calcium Acetate (Phoslo -) 1,334 mg PO TIDCM [facility] Last Admin: 08/05/18 09:32 Dose: Not Given Collagenase (Santyl -) 1 applic TP DAILY [facility] Diphenhydramine HCl (Benadryl Injection -) 50 mg IVPB Q6H [facility] Last Admin: 08/05/18 06:26 Dose: 50 mg Duloxetine HCl (Cymbalta -) 20 mg PO DAILY [facility] Last Admin: 08/05/18 09:30 Dose: 20 mg Heparin Sodium (Porcine) (Heparin -) 5,000 unit SQ BID [facility] Last Admin: 08/05/18 09:32 Dose: Not Given Meropenem 500 mg/ Dextrose 100 mls @ 200 mls/hr IVPB DAILY [facility] Last Admin: 08/05/18 09:19 Dose: 200 mls/hr Lactobacillus Acidophilus (Bacid -) 1 tab PO DAILY [facility] Last Admin: 08/05/18 09:30 Dose: 1 tab - Objective Vital Signs: Vital Signs Temperature 98.3 F 08/05/18 10:00 Pulse Rate 88 08/05/18 10:00 Respiratory Rate 18 08/05/18 10:00 Blood Pressure 140/90 08/05/18 10:00 O2 Sat by Pulse Oximetry (%) 100 08/05/18 09:00 Constitutional: Yes: No Distress, Calm Cardiovascular: Yes: Regular Rate and Rhythm Respiratory: Yes: Regular Gastrointestinal: Yes: Normal Bowel Sounds, Soft, Other (rectal tube) Wound/Incision: Yes: Dressing Dry and Intact Neurological: Yes: Alert Labs: CBC, BMP 08/05/18 09:25 08/05/18 09:25 INR, PTT INR 1.01 (0.83-1.09) 07/24/18 08:30 Microbiology 08/02/18 06:15 Stool Clostridium difficile (PCR) - Preliminary 08/01/18 20:45 Ankle - Left Gram Stain - Final 08/01/18 20:45 Ankle - Left Wound Culture - Preliminary Citrobacter Freundii Complex Klebsiella Oxytoca Morganella Morganii Mr S Aureus Gram Negative Jonathan Pending Organism 08/01/18 21:30 Blood - Peripheral Venous Blood Culture - Preliminary NO GROWTH OBTAINED AFTER 72 HOURS, INCUBATION TO CONTINUE FOR 2 DAYS. 08/01/18 20:00 Blood - Peripheral Venous Blood Culture - Preliminary NO GROWTH OBTAINED AFTER 72 HOURS, INCUBATION TO CONTINUE FOR 2 DAYS. 08/01/18 01:15 Stool Clostridium difficile Antigen (GEM) - Final 08/01/18 01:15 Stool Clostridium difficile Toxin Assay - Final 07/25/18 13:55 Foot - Left Heel Gram Stain - Final 07/25/18 13:55 Foot - Left Heel Wound Culture - Final Citrobacter Freundii Complex Pseudomonas Aeruginosa Staphylococcus Coagulase Neg Mr S Aureus Morganella Morganii Enterococcus Faecalis 07/24/18 08:30 Blood - Peripheral Venous Blood Culture - Final NO GROWTH AFTER 5 DAYS INCUBATION 07/24/18 08:30 Blood - Peripheral Venous Blood Culture - Final NO GROWTH AFTER 5 DAYS INCUBATION 07/24/18 08:30 Stool Clostridium difficile Antigen (GEM) - Final 07/24/18 08:30 Stool Clostridium difficile Toxin Assay - Final Problem List - Problems (1) Bilateral pressure ulcer of feet Code(s): L89.899 - PRESSURE ULCER OF OTHER SITE, UNSPECIFIED STAGE (2) C. difficile colitis Code(s): A04.72 - ENTEROCOLITIS D/T CLOSTRIDIUM DIFFICILE, NOT SPCF RECUR (3) Chronic diarrhea Code(s): K52.9 - NONINFECTIVE GASTROENTERITIS AND COLITIS, UNSPECIFIED (4) ESRD (end stage renal disease) Code(s): N18.6 - END STAGE RENAL DISEASE (5) Osteomyelitis Code(s): M86.9 - OSTEOMYELITIS, UNSPECIFIED Qualifiers: Osteomyelitis type: unspecified type Osteomyelitis location: unspecified site Qualified Code(s): M86.9 - Osteomyelitis, unspecified (6) Recurrent Clostridium difficile diarrhea Code(s): A04.71 - ENTEROCOLITIS DUE TO CLOSTRIDIUM DIFFICILE, RECURRENT Assessment/Plan 52 y.o. male with Hx of C. diff colitis with chronic diarrhea, lactic acidosis, leukocytosis Diarrhea Hx of C. diff colitis Leukocytosis Lt foot infected ulcer DM ESRD on HD Hearing loss -- cont. Meropenem -- f/u stool cultures, C.diff pcr -- cont. wound care pt currently afebrile, leukocytosis resolved cc: 40 min
[2018-08-05] MEDS: COLLAGENASE CLOSTRIDIUM HIST. 30 GRAMS TUBE TP SCH (13:00)
--- NOTE | 2018-08-05 19:52 | PN ---
Progress Note, Physician History of Present Illness: Pt seen and examined at bedside. He still has loose stool. He denies shortness of breath. - Current Medication List Current Medications: Active Medications Calcium Acetate (Phoslo -) 1,334 mg PO TIDCM [facility] Last Admin: 08/05/18 18:26 Dose: Not Given Collagenase (Santyl -) 1 applic TP DAILY [facility] Last Admin: 08/05/18 13:00 Dose: 1 applic Diphenhydramine HCl (Benadryl Injection -) 50 mg IVPB Q6H [facility] Last Admin: 08/05/18 18:26 Dose: 50 mg Duloxetine HCl (Cymbalta -) 20 mg PO DAILY [facility] Last Admin: 08/05/18 09:30 Dose: 20 mg Heparin Sodium (Porcine) (Heparin -) 5,000 unit SQ BID [facility] Last Admin: 08/05/18 09:32 Dose: Not Given Meropenem 500 mg/ Dextrose 100 mls @ 200 mls/hr IVPB DAILY [facility] Last Admin: 08/05/18 09:19 Dose: 200 mls/hr Lactobacillus Acidophilus (Bacid -) 1 tab PO DAILY [facility] Last Admin: 08/05/18 09:30 Dose: 1 tab Potassium Chloride (K-Dur -) 20 meq PO ONCE ONE Stop: 08/05/18 20:01 - Objective Vital Signs: Vital Signs Temperature 98.6 F 08/05/18 19:00 Pulse Rate 92 H 08/05/18 19:00 Respiratory Rate 18 08/05/18 19:00 Blood Pressure 153/83 08/05/18 19:00 O2 Sat by Pulse Oximetry (%) 100 08/05/18 09:00 Constitutional: Yes: Calm Eyes: Yes: Conjunctiva Clear HENT: Yes: Atraumatic Neck: Yes: Supple Cardiovascular: Yes: S1, S2 Respiratory: Yes: CTA Bilaterally Gastrointestinal: Yes: Normal Bowel Sounds, Soft Musculoskeletal: Yes: Muscle Weakness Edema: Yes Edema: LLE: Trace, RLE: Trace Integumentary: Yes: Other (areas of skin soughing off) Neurological: Yes: Oriented Psychiatric: Yes: Oriented Labs: CBC, BMP 08/05/18 09:25 08/05/18 09:25 INR, PTT INR 1.01 (0.83-1.09) 07/24/18 08:30 Problem List - Problems (1) ESRD (end stage renal disease) Code(s): N18.6 - END STAGE RENAL DISEASE Assessment/Plan Current Medications Generic Name Dose Route Start Last Admin Trade Name Jessica PRN Reason Stop Dose Admin Calcium Acetate 1,334 mg 08/05/18 08:00 08/05/18 18:26 Phoslo - PO Not Given TIDCM IRVIN Collagenase 1 applic 08/05/18 10:00 08/05/18 13:00 Santyl - TP 1 applic DAILY IRVIN Administration Diphenhydramine HCl 50 mg 08/04/18 23:45 08/05/18 18:26 Benadryl Injection - IVPB 50 mg Q6H IRVIN Administration Duloxetine HCl 20 mg 08/05/18 10:00 08/05/18 09:30 Cymbalta - PO 20 mg DAILY IRVIN Administration Heparin Sodium (Porcine) 5,000 unit 08/04/18 22:00 08/05/18 09:32 Heparin - SQ Not Given BID IRVIN Meropenem 500 mg/ Dextrose 100 mls @ 200 mls/hr 08/05/18 10:00 08/05/18 09:19 IVPB 200 mls/hr DAILY IRVIN Administration Lactobacillus Acidophilus 1 tab 08/05/18 10:00 08/05/18 09:30 Bacid - PO 1 tab DAILY IRVIN Administration Potassium Chloride 20 meq 08/05/18 20:00 K-Dur - PO 08/05/18 20:01 ONCE ONE Impression 1. ESRD 2. anemia 3. hypokalemia 4. Hep B 5. diarrhea 6. depression 7. non-compliance with HD 8. acidosis - metabolic 9. hypocalcemia 10. hearing loss 11. sepsis Plan - replace potassium - follow stool studies - GI eval - ID follow up - GI follow up for Hep B as tenofivir is on hold - will follow
[2018-08-05] MEDS ORDERED: POTASSIUM CHLORIDE TABS 20 MEQ TABLET.ER (FP) PO ONE (20:00)
[2018-08-06] MEDS: BANATROL PLUS POWDER PACKET PO SCH ×3 (07:02→21:02)
[2018-08-06] MEDS ORDERED: diphenhydrAMINE HCL 25 MG CAPSULE (FP) PO PRN (07:55)
--- NOTE | 2018-08-06 08:31 | PN ---
Progress Note (short form) - Note Progress Note: decreased bm appetite decreased no abd pain has diarrhea very depressed , does not want care per RN Vital Signs - 24 hr 08/05/18 08/05/18 08/05/18 19:00 20:00 22:00 Temperature 98.6 F Pulse Rate 92 H 91 H 90 Respiratory 18 14 14 Rate Blood Pressure 153/83 149/81 122/73 O2 Sat by Pulse Oximetry (%) 08/06/18 08/06/18 08/06/18 00:08 00:12 02:00 Temperature 98.8 F Pulse Rate 84 87 Respiratory 15 12 Rate Blood Pressure 147/82 144/75 O2 Sat by Pulse 99 Oximetry (%) 08/06/18 08/06/18 08/06/18 04:00 06:00 09:00 Temperature 98.8 F Pulse Rate 89 87 Respiratory 20 20 20 Rate Blood Pressure 138/77 141/75 O2 Sat by Pulse 99 Oximetry (%) Current Medications Generic Name Dose Route Start Last Admin Trade Name Freq PRN Reason Stop Dose Admin Calcium Acetate 1,334 mg 08/05/18 08:00 08/06/18 12:00 Phoslo - PO Not Given TIDCM IRVIN Collagenase 1 applic 08/05/18 10:00 08/06/18 12:00 Santyl - TP 1 applic DAILY IRVIN Administration Diphenhydramine HCl 25 mg 08/06/18 07:55 08/06/18 10:10 Benadryl - PO 25 mg Q6H PRN Administration FOR ITCHING Duloxetine HCl 20 mg 08/05/18 10:00 08/06/18 10:10 Cymbalta - PO 20 mg DAILY IRVIN Administration Heparin Sodium (Porcine) 5,000 unit 08/04/18 22:00 08/06/18 10:12 Heparin - SQ Not Given BID IRVIN Meropenem 500 mg/ Dextrose 100 mls @ 200 mls/hr 08/05/18 10:00 08/06/18 11:00 IVPB 200 mls/hr DAILY IRVIN Administration Lactobacillus Acidophilus 1 tab 08/05/18 10:00 08/06/18 10:12 Bacid - PO 1 tab DAILY IRVIN Administration Laboratory Results - last 24 hr 08/06/18 08/06/18 12:50 12:50 WBC 6.7 RBC 2.95 L Hgb 9.4 L Hct 27.9 L MCV 94.5 MCH 31.7 MCHC 33.5 RDW 15.2 Plt Count 123 L MPV 8.6 Absolute Neuts (auto) 4.8 Neutrophils % 71.2 Lymphocytes % 18.8 Monocytes % 7.5 Eosinophils % 2.0 Basophils % 0.5 Nucleated RBC % 0 Sodium 139 Potassium 3.6 Chloride 104 Carbon Dioxide 25 Anion Gap 11 BUN 26 H Creatinine 6.5 H Creat Clearance w eGFR 9.12 Random Glucose 76 Calcium 7.4 L Phosphorus 2.4 L Magnesium 2.0 Total Bilirubin 0.4 AST 5 L ALT < 6 L Alkaline Phosphatase 76 Total Protein 5.3 L Albumin 2.4 L Constitutional: Yes: No Distress, Calm Eyes: Yes: Conjunctiva Clear Neck: Yes: Supple Cardiovascular: Yes: Regular Rate and Rhythm Gastrointestinal: Yes: Normal Bowel Sounds, Soft, not tender Edema: yes- hands Integumentary: Yes: Other (history of heel ulcers--- follows at wound care.) Neurological: Yes: Alert Assessment/Plan spoke with ID, GI blood cultures negative he is refusing his meds 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 difficile colitis Code(s): A04.72 - ENTEROCOLITIS D/T CLOSTRIDIUM DIFFICILE, NOT SPCF RECUR (4) Chronic diarrhea Code(s): K52.9 - NONINFECTIVE GASTROENTERITIS AND COLITIS, UNSPECIFIED (5) Diabetic foot ulcer Code(s): E11.621 - TYPE 2 DIABETES MELLITUS WITH FOOT ULCER; L97.509 - NON- PRESSURE CHRONIC ULCER OTH PRT UNSP FOOT W UNSP SEVERITY Qualifiers: Diabetic foot ulcer location: heel Diabetes mellitus type: other specified (including JADON) Laterality: unspecified laterality Non-pressure ulcer stage : unspecified non-pressure ulcer stage Qualified Code(s): E13.621 - Other specified diabetes mellitus with foot ulcer; L97.409 - Non-pressure chronic ulcer of unspecified heel and midfoot with unspecified severity (6) ESRD (end stage renal disease) Code(s): N18.6 - END STAGE RENAL DISEASE (7) Generalized weakness Code(s): R53.1 - WEAKNESS (8) Sacral decubitus ulcer Code(s): L89.159 - PRESSURE ULCER OF SACRAL REGION, UNSPECIFIED STAGE
[2018-08-06] MEDS ORDERED: PT OWN MED DRAWER 7, Y5N ONE (10:02)
[2018-08-06] MEDS: DULoxetine HCL 20 MG CAPSULE.DR (FP) PO SCH (10:10)
[2018-08-06] MEDS: HEPARIN NA (PORCINE) 5,000 UNITS/ML 1ML VIAL SQ SCH ×2 (10:12→21:02)
[2018-08-06] MEDS: LACTOBACILLUS ACIDOPHILUS 1 TABLET PO SCH (10:12)
[2018-08-06] MEDS: CALCIUM ACETATE 667 MG CAPSULE (FP) PO SCH ×3 (10:12→17:52)
--- NOTE | 2018-08-06 10:37 | PN ---
Teaching Attending Note Name of Resident: Magda Restrepo ATTENDING PHYSICIAN STATEMENT I saw and evaluated the patient. I reviewed the resident's note and discussed the case with the resident. I agree with the resident's findings and plan as documented. SUBJECTIVE: Patient seen and examined in the ICU. Depressed due to persistent diarrhea. Hemodynamics stable overnight. No CP or SOB. OBJECTIVE: Intake & Output 08/03/18 08/04/18 08/05/18 08/06/18 23:59 23:59 23:59 23:59 Intake Total 370 600 600 Output Total 0 10 0 Balance 370 590 600 Weight 195 lb 14.4 oz 196 lb 8 oz 194 lb 3.636 oz Last Vital Signs Temp Pulse Resp BP Pulse Ox 98.8 F 87 20 141/75 99 08/06/18 06:00 08/06/18 06:00 08/06/18 06:00 08/06/18 06:00 08/06/18 00:08 Active Medications Calcium Acetate (Phoslo -) 1,334 mg PO TIDCM [facility] Last Admin: 08/06/18 10:12 Dose: Not Given Collagenase (Santyl -) 1 applic TP DAILY [facility] Last Admin: 08/05/18 13:00 Dose: 1 applic Diphenhydramine HCl (Benadryl -) 25 mg PO Q6H PRN PRN Reason: FOR ITCHING Last Admin: 08/06/18 10:10 Dose: 25 mg Duloxetine HCl (Cymbalta -) 20 mg PO DAILY [facility] Last Admin: 08/06/18 10:10 Dose: 20 mg Heparin Sodium (Porcine) (Heparin -) 5,000 unit SQ BID [facility] Last Admin: 08/06/18 10:12 Dose: Not Given Meropenem 500 mg/ Dextrose 100 mls @ 200 mls/hr IVPB DAILY [facility] Last Admin: 08/05/18 09:19 Dose: 200 mls/hr Lactobacillus Acidophilus (Bacid -) 1 tab PO DAILY [facility] Last Admin: 08/06/18 10:12 Dose: 1 tab Gen: NAD at rest, depressed Heart: RRR Lung: decreased breath sounds at the bases Abd: soft, nontender Ext: no edema ASSESSMENT AND PLAN: Diarrhea - r/o Colitis Hypovolemia Lactic Acidosis ESRD on HD r/o Drug Rash Osteomyelitis Hearing Loss - antibiotics per ID - f/u cultures - IVF boluses as needed - benadryl for rash - HD per renal - DVT prophylaxis - Floor Dr Alonso
--- NOTE | 2018-08-06 10:42 | PN ---
Progress Note, Physician History of Present Illness: Pt is alert, afebrile. Has no new specific complaints. Denies abd pain. - Current Medication List Current Medications: Active Medications Calcium Acetate (Phoslo -) 1,334 mg PO TIDCM [facility] Last Admin: 08/06/18 10:12 Dose: Not Given Collagenase (Santyl -) 1 applic TP DAILY [facility] Last Admin: 08/05/18 13:00 Dose: 1 applic Diphenhydramine HCl (Benadryl -) 25 mg PO Q6H PRN PRN Reason: FOR ITCHING Last Admin: 08/06/18 10:10 Dose: 25 mg Duloxetine HCl (Cymbalta -) 20 mg PO DAILY [facility] Last Admin: 08/06/18 10:10 Dose: 20 mg Heparin Sodium (Porcine) (Heparin -) 5,000 unit SQ BID [facility] Last Admin: 08/06/18 10:12 Dose: Not Given Meropenem 500 mg/ Dextrose 100 mls @ 200 mls/hr IVPB DAILY [facility] Last Admin: 08/05/18 09:19 Dose: 200 mls/hr Lactobacillus Acidophilus (Bacid -) 1 tab PO DAILY [facility] Last Admin: 08/06/18 10:12 Dose: 1 tab - Objective Vital Signs: Vital Signs Temperature 98.8 F 08/06/18 06:00 Pulse Rate 87 08/06/18 06:00 Respiratory Rate 20 08/06/18 06:00 Blood Pressure 141/75 08/06/18 06:00 O2 Sat by Pulse Oximetry (%) 99 08/06/18 00:08 Constitutional: Yes: No Distress, Calm Cardiovascular: Yes: Regular Rate and Rhythm Respiratory: Yes: Regular Gastrointestinal: Yes: Normal Bowel Sounds, Soft ...Rectal Exam: Yes: Other (rectal tube with loose stool) Wound/Incision: Yes: Dressing Dry and Intact (LE) Neurological: Yes: Alert, Oriented Labs: CBC, BMP 08/05/18 09:25 08/05/18 09:25 INR, PTT INR 1.01 (0.83-1.09) 07/24/18 08:30 Microbiology 08/01/18 20:45 Ankle - Left Gram Stain - Final 08/01/18 20:45 Ankle - Left Wound Culture - Final Citrobacter Freundii Complex Klebsiella Oxytoca Morganella Morganii Mr S Aureus Morganella Morganii#2 08/02/18 06:15 Stool Clostridium difficile (PCR) - Final 08/01/18 21:30 Blood - Peripheral Venous Blood Culture - Preliminary NO GROWTH OBTAINED AFTER 96 HOURS, INCUBATION TO CONTINUE FOR 1 DAYS. 08/01/18 20:00 Blood - Peripheral Venous Blood Culture - Preliminary NO GROWTH OBTAINED AFTER 96 HOURS, INCUBATION TO CONTINUE FOR 1 DAYS. 08/03/18 22:00 Stool Salmonella/Shigella Culture - Preliminary NO ENTERIC PATHOGENS, 24 HOURS, ON PRIMARY PLATES 08/03/18 22:00 Stool Yersinia Culture - Preliminary NO ENTERIC PATHOGENS, 24 HOURS, ON PRIMARY PLATES 08/03/18 22:00 Stool Vibrio Culture - Final NO GROWTH OF VIBRIO SPECIES OBTAINED 08/03/18 22:00 Stool Escherichia coli 0157 Culture - Final NO GROWTH OF E COLI 0157 OBTAINED 08/01/18 01:15 Stool Clostridium difficile Antigen (GEM) - Final 08/01/18 01:15 Stool Clostridium difficile Toxin Assay - Final 07/25/18 13:55 Foot - Left Heel Gram Stain - Final 07/25/18 13:55 Foot - Left Heel Wound Culture - Final Citrobacter Freundii Complex Pseudomonas Aeruginosa Staphylococcus Coagulase Neg Mr S Aureus Morganella Morganii Enterococcus Faecalis 07/24/18 08:30 Blood - Peripheral Venous Blood Culture - Final NO GROWTH AFTER 5 DAYS INCUBATION 07/24/18 08:30 Blood - Peripheral Venous Blood Culture - Final NO GROWTH AFTER 5 DAYS INCUBATION 07/24/18 08:30 Stool Clostridium difficile Antigen (GEM) - Final 07/24/18 08:30 Stool Clostridium difficile Toxin Assay - Final Problem List - Problems (1) Bilateral pressure ulcer of feet Code(s): L89.899 - PRESSURE ULCER OF OTHER SITE, UNSPECIFIED STAGE (2) C. difficile colitis Code(s): A04.72 - ENTEROCOLITIS D/T CLOSTRIDIUM DIFFICILE, NOT SPCF RECUR (3) Chronic diarrhea Code(s): K52.9 - NONINFECTIVE GASTROENTERITIS AND COLITIS, UNSPECIFIED (4) ESRD (end stage renal disease) Code(s): N18.6 - END STAGE RENAL DISEASE (5) Osteomyelitis Code(s): M86.9 - OSTEOMYELITIS, UNSPECIFIED Qualifiers: Osteomyelitis type: unspecified type Osteomyelitis location: unspecified site Qualified Code(s): M86.9 - Osteomyelitis, unspecified (6) Recurrent Clostridium difficile diarrhea Code(s): A04.71 - ENTEROCOLITIS DUE TO CLOSTRIDIUM DIFFICILE, RECURRENT Assessment/Plan 52 y.o. male with Hx of C. diff colitis with chronic diarrhea, lactic acidosis, leukocytosis Diarrhea Hx of C. diff colitis Leukocytosis - resolved Lt foot infected ulcer DM ESRD on HD Hearing loss - improved -- cont. Meropenem -- C. diff PCR negative, stool cultures neg so far -- suggest colonoscopy -- cont. wound care pt afebrile, wbc normal
[2018-08-06] MEDS: MEROPENEM 500 MG in DEXTROSE 5%-WATER 100 ML IVPB SCH (11:00)
[2018-08-06] MEDS: COLLAGENASE CLOSTRIDIUM HIST. 30 GRAMS TUBE TP SCH (12:00)
[2018-08-06 13:10] LABS: BASO % 0.5 % (0-2.0); HEMATOCRIT 27.9 % (35.4-49); HEMOGLOBIN 9.4 GM/dL (11.7-16.9); LYMPH % 18.8 % (8-40); MCH 31.7 pg (25.7-33.7); MCHC 33.5 g/dl (32.0-35.9); MEAN CELL VOLUME 94.5 fl (80-96); MEAN PLT VOLUME 8.6 fl (7.5-11.1); MONO % 7.5 % (3.8-10.2); NEUT % 71.2 % (42.8-82.8); PLATELET COUNT 123 K/MM3 (134-434); RBC 2.95 M/mm3 (4.00-5.60); RDW 15.2 % (11.9-15.9); WHITE BLOOD COUNT 6.7 K/mm3 (4.0-10.0)
[2018-08-06 13:27] LABS: ALBUMIN 2.4 g/dl (3.4-5.0); ALK PHOS 76 U/L (45-117); ANION GAP 11 MMOL/L (8-16); BILIRUBIN,TOTAL 0.4 mg/dL (0.2-1); BLOOD UREA NITROGEN 26 mg/dL (7-18); CALCIUM 7.4 mg/dL (8.5-10.1); CHLORIDE 104 mmol/L (98-107); CO2 25 mmol/L (21-32); CREATININE 6.5 mg/dL (0.55-1.3); GLUCOSE,RANDOM 76 mg/dL (74-106); PHOSPHOROUS 2.4 mg/dL (2.5-4.9); POTASSIUM 3.6 mmol/L (3.5-5.1); SGOT/AST 5 U/L (15-37); SGPT/ALT < 6 U/L (13-61); SODIUM 139 mmol/L (136-145); TOT PROT 5.3 g/dl (6.4-8.2)
--- NOTE | 2018-08-06 15:14 | PN ---
Physical Exam: SUBJECTIVE: Patient seen and examined at bed side this morning. Reports to have skin peeling, has been having watery diarrhoea. Denies chest pain, sob, cough, palpitation, abdominal pain, nausea or vomiting. Says that he feels sad and depressed, no suicidal ideation. No acute overnight events. OBJECTIVE: Vital Signs Period Temp Pulse Resp BP Sys/Gutierrez Pulse Ox Last 24 Hr 98.6 F-98.8 F 84-95 12-20 122-153/69-83 99-99 GENERAL: Middle aged male, sitting comfortably in bed, is awake, alert, and fully oriented, in no acute distress. Left arm fistula: functioning HEAD: Normal with no signs of trauma. EYES: EOM intact, no pallor or icterus. ENT: Ears normal, moist mucous membranes. No hearing issues. NECK: Supple. LUNGS: Breath sounds equal, clear to auscultation bilaterally, no accessory muscle use. HEART: Regular rate and rhythm, S1, S2 with systolic murmur ABDOMEN: Soft, nontender, no organomegaly, rectal tube in place. UPPER EXTREMITIES: 2+ pulses, warm, well-perfused, no edema. Pressure Ulcer ( bilateral heel decubitus ulcer. Right heel wound has a clean wound base with pink granulation tissue. Left heel has draining sinus tract with purulent discharge and abkle to probe to bone.). LOWER EXTREMITIES: NEUROLOGICAL: No facial droop. Cranial nerves II through XII grossly intact. Normal speech, gait not observed. PSYCH: Normal mood, normal affect. SKIN: Peeling of skin over the face, Warm, dry, normal turgor, no rashes or lesions noted. Laboratory Results - last 24 hr 08/06/18 08/06/18 12:50 12:50 WBC 6.7 RBC 2.95 L Hgb 9.4 L Hct 27.9 L MCV 94.5 MCH 31.7 MCHC 33.5 RDW 15.2 Plt Count 123 L MPV 8.6 Absolute Neuts (auto) 4.8 Neutrophils % 71.2 Lymphocytes % 18.8 Monocytes % 7.5 Eosinophils % 2.0 Basophils % 0.5 Nucleated RBC % 0 Sodium 139 Potassium 3.6 Chloride 104 Carbon Dioxide 25 Anion Gap 11 BUN 26 H Creatinine 6.5 H Creat Clearance w eGFR 9.12 Random Glucose 76 Calcium 7.4 L Phosphorus 2.4 L Magnesium 2.0 Total Bilirubin 0.4 AST 5 L ALT < 6 L Alkaline Phosphatase 76 Total Protein 5.3 L Albumin 2.4 L Active Medications Generic Name Dose Route Start Last Admin Trade Name Jessica PRN Reason Stop Dose Admin Calcium Acetate 1,334 mg 08/05/18 08:00 08/06/18 10:12 Phoslo - PO Not Given TIDCM IRVIN Collagenase 1 applic 08/05/18 10:00 08/05/18 13:00 Santyl - TP 1 applic DAILY IRVIN Administration Diphenhydramine HCl 25 mg 08/06/18 07:55 08/06/18 10:10 Benadryl - PO 25 mg Q6H PRN Administration FOR ITCHING Duloxetine HCl 20 mg 08/05/18 10:00 08/06/18 10:10 Cymbalta - PO 20 mg DAILY IRVIN Administration Heparin Sodium (Porcine) 5,000 unit 08/04/18 22:00 08/06/18 10:12 Heparin - SQ Not Given BID IRVIN Meropenem 500 mg/ Dextrose 100 mls @ 200 mls/hr 08/05/18 10:00 08/05/18 09:19 IVPB 200 mls/hr DAILY IRVIN Administration Lactobacillus Acidophilus 1 tab 08/05/18 10:00 08/06/18 10:12 Bacid - PO 1 tab DAILY IRVIN Administration ASSESSMENT/PLAN: 52 yo M PMH chronic Cdiff (recently tx), ESRD (MWF), presents to the hospital with recurrent watery diarrhea now s/p rapid response for hypotension which resolved with IV fluids. GI Completed treated for C. diff. Now C. diff negative Still has watery diarrhoea (has a h/o chronic diarrhoea), rectal tube in place. ID Left foot infected ulcer wound cx 08/01/18 - lac ferm and non ferm Gnb, staph L coag pos, strep group B Continue IV Meropenam Continue PO Benadryl 25 mg Q6H PRN (for allergic reaction) Renal ESRD (HD MWF) now AVF is functioning Creatinine 5.5 today. HD tomorrow. ENT Hearing loss- Improving Questionable if it is selective hearing. Today no issues. DERM Peeling of skin could be allergic reaction Will continue PO Benadryl 25 mg Q6H PRN ENDO History of DM Psych Depression Psychology consult requested (Dr. Jeffers) Continue Cymbalta 20mg PO Daily FEN Not on any standing fluids, IVF boluses if needed Electrolytes to be repeated in AM Lactose free renal diet Prophylaxis For DVT: Heparin 5000 sq BID For GI: Bacid PO Daily Dispo: Stable to be transferred to floors. Illness, Investigation and Plan of care explained to the patient. He verbalized understanding. Case seen and discussed with Dr. Alonso. Visit type - Emergency Visit Emergency Visit: Yes ED Registration Date: 07/24/18 Care time: The patient presented to the Emergency Department on the above date and was hospitalized for further evaluation of their emergent condition. - New Patient This patient is new to me today: No - Critical Care Critical Care patient: Yes Total Critical Care Time (in minutes): 35 Critical Care Statement: The care of this patient involved high complexity decision making to prevent further life threatening deterioration of the patient 's condition and/or to evaluate & treat vital organ system(s) failure or risk of failure. - Discharge Referral Referred to [facility] No
--- NOTE | 2018-08-06 17:22 | PN ---
Progress Note, Physician History of Present Illness: Pt seen and examined at bedside. He is awake and alert. He denies shortness of breath. - Current Medication List Current Medications: Active Medications Calcium Acetate (Phoslo -) 1,334 mg PO TIDCM [facility] Last Admin: 08/06/18 12:00 Dose: Not Given Collagenase (Santyl -) 1 applic TP DAILY [facility] Last Admin: 08/06/18 12:00 Dose: 1 applic Diphenhydramine HCl (Benadryl -) 25 mg PO Q6H PRN PRN Reason: FOR ITCHING Last Admin: 08/06/18 10:10 Dose: 25 mg Duloxetine HCl (Cymbalta -) 20 mg PO DAILY [facility] Last Admin: 08/06/18 10:10 Dose: 20 mg Heparin Sodium (Porcine) (Heparin -) 5,000 unit SQ BID [facility] Last Admin: 08/06/18 10:12 Dose: Not Given Meropenem 500 mg/ Dextrose 100 mls @ 200 mls/hr IVPB DAILY [facility] Last Admin: 08/06/18 11:00 Dose: 200 mls/hr Lactobacillus Acidophilus (Bacid -) 1 tab PO DAILY [facility] Last Admin: 08/06/18 10:12 Dose: 1 tab - Objective Vital Signs: Vital Signs Temperature 98.5 F 08/06/18 14:00 Pulse Rate 97 H 08/06/18 14:00 Respiratory Rate 20 08/06/18 14:00 Blood Pressure 156/85 08/06/18 14:00 O2 Sat by Pulse Oximetry (%) 99 08/06/18 09:00 Constitutional: Yes: Calm Eyes: Yes: Conjunctiva Clear HENT: Yes: Atraumatic Neck: Yes: Supple Cardiovascular: Yes: S1, S2 Respiratory: Yes: CTA Bilaterally Gastrointestinal: Yes: Soft Genitourinary: Yes: Incontinence Musculoskeletal: Yes: Muscle Weakness Edema: LLE: Trace, RLE: Trace Neurological: Yes: Oriented Psychiatric: Yes: Oriented Labs: CBC, BMP 08/06/18 12:50 08/06/18 12:50 INR, PTT INR 1.01 (0.83-1.09) 07/24/18 08:30 Problem List - Problems (1) ESRD (end stage renal disease) Code(s): N18.6 - END STAGE RENAL DISEASE Assessment/Plan Current Medications Generic Name Dose Route Start Last Admin Trade Name Freq PRN Reason Stop Dose Admin Calcium Acetate 1,334 mg 08/05/18 08:00 08/06/18 12:00 Phoslo - PO Not Given TIDCM IRVIN Collagenase 1 applic 08/05/18 10:00 08/06/18 12:00 Santyl - TP 1 applic DAILY IRVIN Administration Diphenhydramine HCl 25 mg 08/06/18 07:55 08/06/18 10:10 Benadryl - PO 25 mg Q6H PRN Administration FOR ITCHING Duloxetine HCl 20 mg 08/05/18 10:00 08/06/18 10:10 Cymbalta - PO 20 mg DAILY IRVIN Administration Heparin Sodium (Porcine) 5,000 unit 08/04/18 22:00 08/06/18 10:12 Heparin - SQ Not Given BID IRVIN Meropenem 500 mg/ Dextrose 100 mls @ 200 mls/hr 08/05/18 10:00 08/06/18 11:00 IVPB 200 mls/hr DAILY IRVIN Administration Lactobacillus Acidophilus 1 tab 08/05/18 10:00 08/06/18 10:12 Bacid - PO 1 tab DAILY IRVIN Administration Impression 1. ESRD 2. anemia 3. hypokalemia 4. Hep B 5. diarrhea 6. depression 7. non-compliance with HD 8. acidosis - metabolic 9. hypocalcemia 10. hearing loss 11. sepsis Plan - HD in am - ID follow up, c diff toxin result negative - GI eval for diarrhea - GI follow up for Hep B as tenofivir is on hold - will follow
[2018-08-07] MEDS: BANATROL PLUS POWDER PACKET PO SCH ×3 (06:31→22:50)
[2018-08-07] MEDS: CALCIUM ACETATE 667 MG CAPSULE (FP) PO SCH ×3 (08:23→17:13)
--- NOTE | 2018-08-07 08:54 | PN ---
Physical Exam: SUBJECTIVE: Patient seen and examined in the ICU. HD this am. C. Diff PCR negative. Hearing has improved. Depressed due to persistent diarrhea. Hemodynamics stable overnight. No fevers, CP or SOB. OBJECTIVE: Vital Signs Period Temp Pulse Resp BP Sys/Gutierrez Pulse Ox Last 24 Hr 98.1 F-98.6 F 80-97 11-20 124-174/64-85 99-99 GENERAL: AOX3 NAD HEENT: NCAT sclera anicteric, conjunctiva clear. No ptosis. MMM NECK: Trachea midline, full range of motion, supple. LUNGS: CTAB HEART: RR tachy, S1, S2 without m/r/g ABDOMEN: Soft, NTND, hyperactive bowel sounds. +rectal tube due to incontinent dermatitis EXTREMITIES: 2+ pulses, warm, well-perfused, no edema. Pressure Ulcer ( bilateral heel decubitus ulcer. Right heel wound has a clean wound base with pink granulation tissue. Left heel has draining sinus tract with purulent discharge and abkle to probe to bone.). +LUE AV fistula NEUROLOGICAL: Cranial nerves II through XII grossly intact. Normal speech, gait not observed. PSYCH: Normal mood, normal affect. SKIN: Warm, dry, normal turgor, no rash Laboratory Results - last 24 hr 08/06/18 08/06/18 12:50 12:50 WBC 6.7 RBC 2.95 L Hgb 9.4 L Hct 27.9 L MCV 94.5 MCH 31.7 MCHC 33.5 RDW 15.2 Plt Count 123 L MPV 8.6 Absolute Neuts (auto) 4.8 Neutrophils % 71.2 Lymphocytes % 18.8 Monocytes % 7.5 Eosinophils % 2.0 Basophils % 0.5 Nucleated RBC % 0 Sodium 139 Potassium 3.6 Chloride 104 Carbon Dioxide 25 Anion Gap 11 BUN 26 H Creatinine 6.5 H Creat Clearance w eGFR 9.12 Random Glucose 76 Calcium 7.4 L Phosphorus 2.4 L Magnesium 2.0 Total Bilirubin 0.4 AST 5 L ALT < 6 L Alkaline Phosphatase 76 Total Protein 5.3 L Albumin 2.4 L Active Medications Generic Name Dose Route Start Last Admin Trade Name Freq PRN Reason Stop Dose Admin Albumin Human 12.5 gm 08/07/18 17:30 Albumin Human 25% IVPB Q30M IRVIN Calcium Acetate 1,334 mg 08/05/18 08:00 08/07/18 08:23 Phoslo - PO Not Given TIDCM IRVIN Collagenase 1 applic 08/05/18 10:00 08/06/18 12:00 Santyl - TP 1 applic DAILY IRVIN Administration Diphenhydramine HCl 25 mg 08/06/18 07:55 08/06/18 10:10 Benadryl - PO 25 mg Q6H PRN Administration FOR ITCHING Duloxetine HCl 20 mg 08/05/18 10:00 08/06/18 10:10 Cymbalta - PO 20 mg DAILY IRVIN Administration Epoetin Arjun 4,000 unit 08/07/18 17:22 Epogen - IVPUSH 08/07/18 17:23 ONCE ONE Heparin Sodium (Porcine) 5,000 unit 08/04/18 22:00 08/06/18 21:02 Heparin - SQ Not Given BID IRVIN Meropenem 500 mg/ Dextrose 100 mls @ 200 mls/hr 08/05/18 10:00 08/06/18 11:00 IVPB 200 mls/hr DAILY IRVIN Administration Sodium Chloride 250 mls @ 3,000 mls/hr 08/06/18 17:22 Normal Saline - IV 08/07/18 17:22 PRN PRN Hypotension during Dialysis Lactobacillus Acidophilus 1 tab 08/05/18 10:00 08/06/18 10:12 Bacid - PO 1 tab DAILY IRVIN Administration ASSESSMENT/PLAN: 52 yo M PMH chronic Cdiff (recently tx), ESRD (MWF), presents to the hospital with recurrent watery diarrhea now s/p rapid response for hypotension. hypotension resolved w/ IVF. NEURO AOX3 NAD no active issues Cardiac/pulm/GI/ID Diarrhea - r/o Colitis Hypovolemia Severe Sepsis - responsive to IVF. Osteomyelitis Lactic Acidosis - resolved bilateral heel wounds/decubitus ulcers chronic Cdiff (recently tx) maintain MAP>65 IVF boluses as needed, avoid fluid overload especially in ESRD O2 as needed Patient has been treated for C. Diff and C. Diff is now negative for toxin/ antigen/PCR UA UCx-patient refusing straight cath left heel had some purulent drainage expressed and this was sent for wound culture wound cx 08/01/18 - lac ferm and non ferm Gnb, staph L coag pos, strep group B HIV, bcx, stool cx, ova/para neg CRP 17.7, ESR 20 c/w meropenem, no allergic rexn noted so far. Will use Aztreonam if patient is allergic. rectal tube to help w/ incontinent dermatitis. GI follow up for Hep B as tenofivir is on hold due to possible side effect of diarrhea GI consult ID consult RENAL monitor Cr refusing loya ESRD (HD MWF) now AVF is functioning HD today renal consult refusing epogen IVF boluses as needed ENT - hearing loss? Patient seen by ENT for hearing loss. Consult appreciated. Questionable true hearing loss. Patient can follow up as outpatient for testing. Hearing loss- Improving Questionable if it is selective hearing. Today no issues. DERM Peeling of skin could be allergic reaction Will continue PO Benadryl 25 mg Q6H PRN monitor for allergic rexns to meds c/w meropenem, no allergic rexn noted so far. ENDO History of DM Patient states he is no longer diabetic sugars have been stable on BMPs Psych Depression psych consult Cymbalta 20mg po od FEN IVF boluses as needed replete prn Renal, lactose free ppx DVT: Heparin 5000 sq BID GI: Bacid PO Daily DISPO pt is stable for transfer to the floors. further care per primary team/PCP PT eval Visit type - Emergency Visit Emergency Visit: Yes ED Registration Date: 07/24/18 Care time: The patient presented to the Emergency Department on the above date and was hospitalized for further evaluation of their emergent condition. - New Patient This patient is new to me today: Yes Date on this admission: 08/07/18 - Critical Care Critical Care patient: Yes Total Critical Care Time (in minutes): 37 Critical Care Statement: The care of this patient involved high complexity decision making to prevent further life threatening deterioration of the patient 's condition and/or to evaluate & treat vital organ system(s) failure or risk of failure.
[2018-08-07] MEDS ORDERED: SODIUM CHLORIDE 250 ML IV PRN (09:25)
[2018-08-07] MEDS ORDERED: PT OWN MED DRAWER 7, Y5N ONE (09:26)
[2018-08-07] MEDS: LACTOBACILLUS ACIDOPHILUS 1 TABLET PO SCH (09:31)
[2018-08-07] MEDS: DULoxetine HCL 20 MG CAPSULE.DR (FP) PO SCH (09:31)
[2018-08-07] MEDS: MEROPENEM 500 MG in DEXTROSE 5%-WATER 100 ML IVPB SCH (09:32)
[2018-08-07] MEDS: COLLAGENASE CLOSTRIDIUM HIST. 30 GRAMS TUBE TP SCH (09:33)
[2018-08-07] MEDS: HEPARIN NA (PORCINE) 5,000 UNITS/ML 1ML VIAL SQ SCH ×2 (09:37→22:50)
[2018-08-07] MEDS ORDERED: EPOETIN ALFA 2,000 UNIT/1 ML VIAL IVPUSH ONE (10:15)
[2018-08-07 10:30] LABS: HEMATOCRIT 25.8 % (35.4-49); HEMOGLOBIN 8.8 GM/dL (11.7-16.9); MCH 31.8 pg (25.7-33.7); MEAN CELL VOLUME 93.3 fl (80-96); MEAN PLT VOLUME 8.9 fl (7.5-11.1); PLATELET COUNT 132 K/MM3 (134-434); RBC 2.77 M/mm3 (4.00-5.60); RDW 14.9 % (11.9-15.9); WHITE BLOOD COUNT 5.5 K/mm3 (4.0-10.0)
[2018-08-07 11:00] LABS: ANION GAP 8 MMOL/L (8-16); BLOOD UREA NITROGEN 30 mg/dL (7-18); CALCIUM 7.2 mg/dL (8.5-10.1); CHLORIDE 105 mmol/L (98-107); CO2 26 mmol/L (21-32); GLUCOSE,RANDOM 109 mg/dL (74-106); MAGNESIUM 2.1 mg/dL (1.8-2.4); POTASSIUM 3.5 mmol/L (3.5-5.1); SODIUM 138 mmol/L (136-145)
[2018-08-07 11:10] LABS: CREATININE 7.4 mg/dL (0.55-1.3)
--- NOTE | 2018-08-07 11:13 | PN ---
GI Progress Note Subjective: Complains of continued loose BMs C. Diff PCR negatiive PO vancomycin discontinued given ? acute hearing loss that has since resolved. He is continued on Abx, however - Objective Vital Signs: Vital Signs Temperature 98.6 F 08/07/18 10:13 Pulse Rate 91 H 08/07/18 11:00 Respiratory Rate 18 08/07/18 11:00 Blood Pressure 123/64 08/07/18 11:00 O2 Sat by Pulse Oximetry (%) 99 08/07/18 07:59 Constitutional: Calm Cardiovascular: No: Regular Rate and Rhythm Respiratory: Yes: CTA Bilaterally Gastrointestinal Inspection: No: Distention ...Auscultate: Yes: Normoactive Bowel Sounds ...Palpate: No: Tenderness ...Percussion: No: Tympanitic Neurological: Yes: Alert, Oriented Labs: CBC, BMP 08/07/18 10:00 08/07/18 10:00 INR, PTT INR 1.01 (0.83-1.09) 07/24/18 08:30 Problem List - Problems (1) C. difficile colitis Assessment/Plan: C. Diff Toxin PCR negative. ? underlying chronic component to diarrhea Discussed both upper endoscopy and colonoscopy for further evaluation. Discussed potential risks of the procedures like but not limited to bleeding, perforation requiring surgerty to repair, infection and sedation medication effects, all of which could be potentially life threatening. He has agreed to the procedures. Ordered repeat fasting gastrin level Order chromogranin A Ideally should be on coverage for C. Diff while on antibiotics and then 1 week after antibiotics complete, especially given recurrent nature of his C. Diff infection. Left message to discuss with Dr. Klein. Code(s): A04.72 - ENTEROCOLITIS D/T CLOSTRIDIUM DIFFICILE, NOT SPCF RECUR
--- NOTE | 2018-08-07 11:54 | PN ---
Progress Note (short form) - Note Progress Note: pt seen/ examined in icu chart reviewed all f/u noted discussed with gi --also today-- for endo tomorrow currently being dialyzed. diarrhea better but + c diff pcr -ve Vital Signs Temp 98.6 F 08/07/18 10:13 Pulse 91 H 08/07/18 11:00 Resp 18 08/07/18 11:00 BP 123/64 08/07/18 11:00 Pulse Ox 99 08/07/18 07:59 Intake & Output 08/06/18 08/06/18 08/07/18 11:59 23:59 11:59 Intake Total 770 100 Balance 770 100 Weight 194 lb 3.636 oz 195 lb 3 oz Intake: IVPB 100 Oral 670 100 Other: Voiding Method Indwelling Catheter Indwelling Catheter Bowel Movement Yes: flexiseal Yes: x1 Yes: x1 # Bowel Movements 1 1 Weight Measurement Method Built in Bedscale [facility] [place] Active Medications Bisacodyl (Dulcolax -) 20 mg PO ONCE ONE Stop: 08/07/18 17:01 Calcium Acetate (Phoslo -) 1,334 mg PO TIDCM [facility] Last Admin: 08/07/18 08:23 Dose: Not Given Collagenase (Santyl -) 1 applic TP DAILY [facility] Last Admin: 08/07/18 09:33 Dose: 1 applic Diphenhydramine HCl (Benadryl -) 25 mg PO Q6H PRN PRN Reason: FOR ITCHING Last Admin: 08/06/18 10:10 Dose: 25 mg Duloxetine HCl (Cymbalta -) 20 mg PO DAILY [facility] Last Admin: 08/07/18 09:31 Dose: 20 mg Heparin Sodium (Porcine) (Heparin -) 5,000 unit SQ BID [facility] Last Admin: 08/07/18 09:37 Dose: Not Given Meropenem 500 mg/ Dextrose 100 mls @ 200 mls/hr IVPB DAILY [facility] Last Admin: 08/07/18 09:32 Dose: 200 mls/hr Lactobacillus Acidophilus (Bacid -) 1 tab PO DAILY [facility] Last Admin: 08/07/18 09:31 Dose: 1 tab CBC, BMP 08/07/18 10:00 08/07/18 10:00 Microbiology 08/03/18 22:00 Salmonella/Shigella Culture - Final Stool NO GROWTH OF SALMONELLA OR SHIGELLA SPECIES OBTAINED Campylobacter Culture - Final NO GROWTH OF CAMPYLOBACTER SPECIES OBTAINED Yersinia Culture - Final NO GROWTH OF YERSINIA SPECIES OBTAINED Vibrio Culture - Final NO GROWTH OF VIBRIO SPECIES OBTAINED Escherichia coli 0157 Culture - Final NO GROWTH OF E COLI 0157 OBTAINED 08/01/18 21:30 Blood Culture - Final Blood - Peripheral Venous NO GROWTH AFTER 5 DAYS INCUBATION 08/01/18 20:00 Blood Culture - Final Blood - Peripheral Venous NO GROWTH AFTER 5 DAYS INCUBATION 08/01/18 20:45 Gram Stain - Final Ankle - Left Wound Culture - Final Citrobacter Freundii Complex Klebsiella Oxytoca Morganella Morganii Mr S Aureus Morganella Morganii#2 08/02/18 06:15 Clostridium difficile (PCR) - Final Stool Physical Exam Constitutional: Yes: No Distress, Calm. Eyes: Yes: Conjunctiva Clear Neck: Yes: Supple Cardiovascular: Yes: Regular Rate and Rhythm Gastrointestinal: Yes: Normal Bowel Sounds, Soft, not tender. Integumentary: Yes: heel ulcer Neurological: Yes: Alert/ awake. Assessment/Plan + ve c diff colitis clotted fistula-fixed hearing loss-- better Mood disorder Heel wound Hep B stable abx per i/d meds reviewed continue present care wound care/ i/d to follow will discuss with i/d also for endo tomorrow will follow Problem List - Problems (1) Acute diarrhea Code(s): R19.7 - DIARRHEA, UNSPECIFIED (2) Bilateral pressure ulcer of feet Code(s): L89.899 - PRESSURE ULCER OF OTHER SITE, UNSPECIFIED STAGE (3) ESRD (end stage renal disease) Code(s): N18.6 - END STAGE RENAL DISEASE
[2018-08-07] MEDS: ALBUMIN HUMAN 25% 12.5 GM/50 ML VIAL IVPB SCH ×3 (12:07→16:10)
--- NOTE | 2018-08-07 12:17 | PN ---
Teaching Attending Note Name of Resident: Serafin Bernal ATTENDING PHYSICIAN STATEMENT I saw and evaluated the patient. I reviewed the resident's note and discussed the case with the resident. I agree with the resident's findings and plan as documented. SUBJECTIVE: Pt seen and examined in the ICU. Still with diarrhea. No abdominal pain, fevers or chills. Currently receiving HD. OBJECTIVE: Vital Signs Period Temp Pulse Resp BP Sys/Gutierrez Pulse Ox Last 24 Hr 98.1 F-98.6 F 80-97 11-20 123-174/64-85 99-99 Intake & Output 08/04/18 08/05/18 08/06/18 08/07/18 23:59 23:59 23:59 23:59 Intake Total 600 600 770 100 Output Total 10 0 Balance 590 600 770 100 Weight 89.131 kg 88.1 kg 88.536 kg Gen: NAD at rest Heart: RRR Lung: decreased breath sounds at the bases Abd: soft, nontender Ext: no edema CBC, BMP 08/07/18 10:00 08/07/18 10:00 Active Medications Bisacodyl (Dulcolax -) 20 mg PO ONCE ONE Stop: 08/07/18 17:01 Calcium Acetate (Phoslo -) 1,334 mg PO TIDCM [facility] Last Admin: 08/07/18 08:23 Dose: Not Given Collagenase (Santyl -) 1 applic TP DAILY [facility] Last Admin: 08/07/18 09:33 Dose: 1 applic Diphenhydramine HCl (Benadryl -) 25 mg PO Q6H PRN PRN Reason: FOR ITCHING Last Admin: 08/06/18 10:10 Dose: 25 mg Duloxetine HCl (Cymbalta -) 20 mg PO DAILY [facility] Last Admin: 08/07/18 09:31 Dose: 20 mg Heparin Sodium (Porcine) (Heparin -) 5,000 unit SQ BID [facility] Last Admin: 08/07/18 09:37 Dose: Not Given Meropenem 500 mg/ Dextrose 100 mls @ 200 mls/hr IVPB DAILY [facility] Last Admin: 08/07/18 09:32 Dose: 200 mls/hr Lactobacillus Acidophilus (Bacid -) 1 tab PO DAILY [facility] Last Admin: 08/07/18 09:31 Dose: 1 tab ASSESSMENT AND PLAN: Diarrhea - r/o Colitis Hypovolemia improved r/o Sepsis Lactic Acidosis resolved ESRD on HD Drug Rash Osteomyelitis Hearing Loss - antibiotics per ID - IVF boluses as needed - benadryl for rash - HD per renal - for colonoscopy - DVT prophylaxis - can monitor on floor
--- NOTE | 2018-08-07 15:22 | PN ---
Progress Note, Physician History of Present Illness: stable no issues still with dirrhoea - Current Medication List Current Medications: Active Medications Bisacodyl (Dulcolax -) 20 mg PO ONCE ONE Stop: 08/07/18 17:01 Calcium Acetate (Phoslo -) 1,334 mg PO TIDCM [facility] Last Admin: 08/07/18 12:58 Dose: Not Given Collagenase (Santyl -) 1 applic TP DAILY [facility] Last Admin: 08/07/18 09:33 Dose: 1 applic Diphenhydramine HCl (Benadryl -) 25 mg PO Q6H PRN PRN Reason: FOR ITCHING Last Admin: 08/06/18 10:10 Dose: 25 mg Duloxetine HCl (Cymbalta -) 20 mg PO DAILY [facility] Last Admin: 08/07/18 09:31 Dose: 20 mg Heparin Sodium (Porcine) (Heparin -) 5,000 unit SQ BID [facility] Last Admin: 08/07/18 09:37 Dose: Not Given Meropenem 500 mg/ Dextrose 100 mls @ 200 mls/hr IVPB DAILY [facility] Last Admin: 08/07/18 09:32 Dose: 200 mls/hr Lactobacillus Acidophilus (Bacid -) 1 tab PO DAILY [facility] Last Admin: 08/07/18 09:31 Dose: 1 tab - Objective Vital Signs: Vital Signs Temperature 98.7 F 08/07/18 14:20 Pulse Rate 97 H 08/07/18 14:20 Respiratory Rate 13 08/07/18 14:20 Blood Pressure 154/81 08/07/18 14:20 O2 Sat by Pulse Oximetry (%) 99 08/07/18 07:59 Constitutional: Yes: No Distress, Calm Cardiovascular: Yes: Regular Rate and Rhythm Respiratory: Yes: Regular, CTA Bilaterally Gastrointestinal: Yes: Normal Bowel Sounds, Soft, Other (dirrhoea) Musculoskeletal: Yes: WNL Extremities: Yes: Other Wound/Incision: Yes: Other (b/l heel wounds.dressing intact) Neurological: Yes: Alert, Oriented Psychiatric: Yes: Alert, Oriented Labs: CBC, BMP 08/07/18 10:00 08/07/18 10:00 INR, PTT INR 1.01 (0.83-1.09) 07/24/18 08:30 Assessment/Plan Assessment/Plan Problem List - Problems (1) Acute diarrhea Code(s): R19.7 - DIARRHEA, UNSPECIFIED (2) Bilateral pressure ulcer of feet Code(s): L89.899 - PRESSURE ULCER OF OTHER SITE, UNSPECIFIED STAGE (3) C. difficile colitis Code(s): A04.72 - ENTEROCOLITIS D/T CLOSTRIDIUM DIFFICILE, NOT SPCF RECUR (4) Chronic diarrhea Code(s): K52.9 - NONINFECTIVE GASTROENTERITIS AND COLITIS, UNSPECIFIED (5) Diabetic foot ulcer Code(s): E11.621 - TYPE 2 DIABETES MELLITUS WITH FOOT ULCER; L97.509 - NON- PRESSURE CHRONIC ULCER OTH PRT UNSP FOOT W UNSP SEVERITY Qualifiers: Diabetic foot ulcer location: heel Diabetes mellitus type: other specified (including JADON) Laterality: unspecified laterality Non-pressure ulcer stage : unspecified non-pressure ulcer stage Qualified Code(s): E13.621 - Other specified diabetes mellitus with foot ulcer; L97.409 - Non-pressure chronic ulcer of unspecified heel and midfoot with unspecified severity (6) ESRD (end stage renal disease) Code(s): N18.6 - END STAGE RENAL DISEASE (7) Generalized weakness Code(s): R53.1 - WEAKNESS (8) Sacral decubitus ulcer Code(s): L89.159 - PRESSURE ULCER OF SACRAL REGION, UNSPECIFIED STAGE 9 left heel wound patient in icu patient currently refusing all abx plan continue abx rest continue current mgmt hydration watch for dirrhoea
--- NOTE | 2018-08-07 16:20 | PN ---
Progress Note, Physician History of Present Illness: Pt seen and examined at bedside. He still has diarrhea. - Current Medication List Current Medications: Active Medications Bisacodyl (Dulcolax -) 20 mg PO ONCE ONE Stop: 08/07/18 17:01 Calcium Acetate (Phoslo -) 1,334 mg PO TIDCM [facility] Last Admin: 08/07/18 12:58 Dose: Not Given Collagenase (Santyl -) 1 applic TP DAILY [facility] Last Admin: 08/07/18 09:33 Dose: 1 applic Diphenhydramine HCl (Benadryl -) 25 mg PO Q6H PRN PRN Reason: FOR ITCHING Last Admin: 08/06/18 10:10 Dose: 25 mg Duloxetine HCl (Cymbalta -) 20 mg PO DAILY [facility] Last Admin: 08/07/18 09:31 Dose: 20 mg Heparin Sodium (Porcine) (Heparin -) 5,000 unit SQ BID [facility] Last Admin: 08/07/18 09:37 Dose: Not Given Meropenem 500 mg/ Dextrose 100 mls @ 200 mls/hr IVPB DAILY [facility] Last Admin: 08/07/18 09:32 Dose: 200 mls/hr Lactobacillus Acidophilus (Bacid -) 1 tab PO DAILY [facility] Last Admin: 08/07/18 09:31 Dose: 1 tab - Objective Vital Signs: Vital Signs Temperature 98.7 F 08/07/18 14:20 Pulse Rate 93 H 08/07/18 16:00 Respiratory Rate 12 08/07/18 16:00 Blood Pressure 162/81 08/07/18 16:00 O2 Sat by Pulse Oximetry (%) 99 08/07/18 07:59 Constitutional: Yes: Calm Eyes: Yes: Conjunctiva Clear HENT: Yes: Atraumatic Neck: Yes: Supple Cardiovascular: Yes: S1, S2 Respiratory: Yes: CTA Bilaterally Gastrointestinal: Yes: Soft Musculoskeletal: Yes: Muscle Weakness Edema: No Neurological: Yes: Oriented Psychiatric: Yes: Oriented Labs: CBC, BMP 08/07/18 10:00 08/07/18 10:00 INR, PTT INR 1.01 (0.83-1.09) 07/24/18 08:30 Problem List - Problems (1) ESRD (end stage renal disease) Code(s): N18.6 - END STAGE RENAL DISEASE Assessment/Plan Current Medications Generic Name Dose Route Start Last Admin Trade Name Freq PRN Reason Stop Dose Admin Bisacodyl 20 mg 08/07/18 17:00 Dulcolax - PO 08/07/18 17:01 ONCE ONE Calcium Acetate 1,334 mg 08/05/18 08:00 08/07/18 12:58 Phoslo - PO Not Given TIDCM IRVIN Collagenase 1 applic 08/05/18 10:00 08/07/18 09:33 Santyl - TP 1 applic DAILY [facility] Administration Diphenhydramine HCl 25 mg 08/06/18 07:55 08/06/18 10:10 Benadryl - PO 25 mg Q6H PRN Administration FOR ITCHING Duloxetine HCl 20 mg 08/05/18 10:00 08/07/18 09:31 Cymbalta - PO 20 mg DAILY [facility] Administration Heparin Sodium (Porcine) 5,000 unit 08/04/18 22:00 08/07/18 09:37 Heparin - SQ Not Given BID IRVIN Meropenem 500 mg/ Dextrose 100 mls @ 200 mls/hr 08/05/18 10:00 08/07/18 09:32 IVPB 200 mls/hr DAILY [facility] Administration Lactobacillus Acidophilus 1 tab 08/05/18 10:00 08/07/18 09:31 Bacid - PO 1 tab DAILY [facility] Administration Impression 1. ESRD 2. anemia 3. hypokalemia 4. Hep B 5. diarrhea 6. depression 7. non-compliance with HD 8. acidosis - metabolic 9. hypocalcemia 10. hearing loss 11. sepsis Plan - HD today - endoscopy tomorrow - monitor bp - ID follow up, c diff toxin result negative - GI follow up for Hep B as tenofivir is on hold - will follow
[2018-08-07] MEDS ORDERED: BISACODYL 5 MG TABLET.DR (FP) PO ONE (17:00)
[2018-08-07] MEDS ORDERED: PEG3350/SOD SULF,BICARB,CL/KCL 4,000 ML SOLN.RECON PO ONE (18:00)
[2018-08-08] MEDS: BANATROL PLUS POWDER PACKET PO SCH ×3 (07:01→21:11)
[2018-08-08 07:29] LABS: BASO % 1.4 % (0-2.0); EOS % 3.3 % (0-4.5); HEMATOCRIT 28.5 % (35.4-49); LYMPH % 30.6 % (8-40); MCHC 31.7 g/dl (32.0-35.9); MEAN CELL VOLUME 94.8 fl (80-96); MEAN PLT VOLUME 8.7 fl (7.5-11.1); MONO % 9.2 % (3.8-10.2); NEUT % 55.5 % (42.8-82.8); PLATELET COUNT 134 K/MM3 (134-434); RBC 3.01 M/mm3 (4.00-5.60); RDW 14.5 % (11.9-15.9); WHITE BLOOD COUNT 5.3 K/mm3 (4.0-10.0)
[2018-08-08] MEDS: CALCIUM ACETATE 667 MG CAPSULE (FP) PO SCH ×3 (08:26→16:35)
[2018-08-08 08:30] LABS: ALBUMIN 2.3 g/dl (3.4-5.0); ALK PHOS 74 U/L (45-117); ANION GAP 9 MMOL/L (8-16); BILIRUBIN,TOTAL 0.4 mg/dL (0.2-1); BLOOD UREA NITROGEN 14 mg/dL (7-18); CALCIUM 7.9 mg/dL (8.5-10.1); CHLORIDE 102 mmol/L (98-107); CO2 29 mmol/L (21-32); GLUCOSE,RANDOM 67 mg/dL (74-106); PHOSPHOROUS 2.7 mg/dL (2.5-4.9); POTASSIUM 3.4 mmol/L (3.5-5.1); SGOT/AST 8 U/L (15-37); SGPT/ALT 9 U/L (13-61); SODIUM 140 mmol/L (136-145); TOT PROT 5.5 g/dl (6.4-8.2)
--- NOTE | 2018-08-08 08:43 | PN ---
Physical Exam: SUBJECTIVE: Patient seen and examined in the ICU. Colonoscopy today, finished 1 /2 of bowel prep overnight. s/p HD yesterday Hemodynamics stable overnight. No fevers, CP or SOB. OBJECTIVE: Vital Signs Period Temp Pulse Resp BP Sys/Gutierrez Pulse Ox Last 24 Hr 97.6 F-98.7 F 86-98 07-16 112-163/62-83 99 GENERAL: AOX3 NAD HEENT: NCAT sclera anicteric, conjunctiva clear. No ptosis. MMM NECK: Trachea midline, full range of motion, supple. LUNGS: CTAB HEART: RR tachy, S1, S2 without m/r/g ABDOMEN: Soft, NTND, hyperactive bowel sounds. +rectal tube due to incontinent dermatitis EXTREMITIES: 2+ pulses, warm, well-perfused, no edema. bilateral heel decubitus ulcer. +LUE AV fistula NEUROLOGICAL: Cranial nerves II through XII grossly intact. Normal speech, gait not observed. PSYCH: Normal mood, normal affect. SKIN: Warm, dry, normal turgor, no rash Laboratory Results - last 24 hr 08/03/18 08/07/18 08/07/18 15:30 10:00 10:00 WBC 5.5 RBC 2.77 L Hgb 8.8 L Hct 25.8 L MCV 93.3 MCH 31.8 MCHC 34.0 RDW 14.9 Plt Count 132 L MPV 8.9 Absolute Neuts (auto) Neutrophils % Lymphocytes % Monocytes % Eosinophils % Basophils % Nucleated RBC % Sodium 138 Potassium 3.5 Chloride 105 Carbon Dioxide 26 Anion Gap 8 BUN 30 H Creatinine 7.4 H* Creat Clearance w eGFR 7.85 Random Glucose 109 H Calcium 7.2 L Phosphorus 3.0 Magnesium 2.1 Total Bilirubin AST ALT Alkaline Phosphatase Total Protein Albumin Stool O & P Wet [place] & P Permanent Slide Final report 08/08/18 08/08/18 07:15 07:15 WBC 5.3 RBC 3.01 L Hgb 9.0 L Hct 28.5 L MCV 94.8 MCH 30.0 MCHC 31.7 L RDW 14.5 Plt Count 134 MPV 8.7 Absolute Neuts (auto) 3.0 Neutrophils % 55.5 D Lymphocytes % 30.6 D Monocytes % 9.2 Eosinophils % 3.3 Basophils % 1.4 Nucleated RBC % 0 Sodium 140 Potassium 3.4 L Chloride 102 Carbon Dioxide 29 Anion Gap 9 BUN 14 Creatinine 5.0 H Creat Clearance w eGFR 12.35 Random Glucose 67 L Calcium 7.9 L Phosphorus 2.7 Magnesium 2.0 Total Bilirubin 0.4 AST 8 L ALT 9 L Alkaline Phosphatase 74 Total Protein 5.5 L Albumin 2.3 L Stool O & P Wet [place] P Permanent Slide Active Medications Generic Name Dose Route Start Last Admin Trade Name Freq PRN Reason Stop Dose Admin Calcium Acetate 1,334 mg 08/05/18 08:00 08/07/18 17:13 Phoslo - PO Not Given TIDCM [facility] Collagenase 1 applic 08/05/18 10:00 08/07/18 09:33 Santyl - TP 1 applic DAILY [facility] Administration Diphenhydramine HCl 25 mg 08/06/18 07:55 08/06/18 10:10 Benadryl - PO 25 mg Q6H PRN Administration FOR ITCHING Duloxetine HCl 20 mg 08/05/18 10:00 08/07/18 09:31 Cymbalta - PO 20 mg DAILY [facility] Administration Heparin Sodium (Porcine) 5,000 unit 08/04/18 22:00 08/07/18 22:50 Heparin - SQ Not Given BID IRVIN Meropenem 500 mg/ Dextrose 100 mls @ 200 mls/hr 08/05/18 10:00 08/07/18 09:32 IVPB 200 mls/hr DAILY [facility] Administration Potassium Chloride 10 meq in 100 mls @ 100 mls/hr 08/08/18 08:45 Potassium Chloride 10 Meq Premix Ivpb - IVPB 08/08/18 09:44 Q60M IRVIN Lactobacillus Acidophilus 1 tab 08/05/18 10:00 08/07/18 09:31 Bacid - PO 1 tab DAILY [facility] Administration ASSESSMENT/PLAN: 52 yo M PMH chronic Cdiff (recently tx), ESRD (MWF), presents to the hospital with recurrent watery diarrhea now s/p rapid response for hypotension. hypotension resolved w/ IVF. NEURO AOX3 NAD no active issues Cardiac/pulm/GI/ID Diarrhea - r/o Colitis Hypovolemia - resolved Severe Sepsis - responsive to IVF. Osteomyelitis Lactic Acidosis - resolved bilateral heel wounds/decubitus ulcers chronic Cdiff (recently tx) maintain MAP>65 IVF boluses as needed, avoid fluid overload especially in ESRD O2 as needed Patient has been treated for C. Diff and C. Diff is now negative for toxin/ antigen/PCR Per GI, ideally should be on coverage for C. Diff while on abx and then 1 week after antibiotics complete, especially given recurrent nature of his C. Diff infection. will f/u w/ ID's input. UA UCx-patient refusing straight cath left heel wound cx 08/01/18 - lac ferm and non ferm Gnb, staph L coag pos, strep group B HIV, bcx, stool cx, ova/para neg CRP 17.7, ESR 20 c/w meropenem, no allergic rexn noted so far. Will use Aztreonam if patient is allergic. rectal tube to help w/ incontinent dermatitis. GI follow up for Hep B as tenofivir is on hold due to possible side effect of diarrhea f/u repeat fasting gastrin level f/u chromogranin A GI consult ID consult Colonoscopy today, finished 1/2 of bowel prep overnight RENAL monitor Cr refusing loya ESRD (HD MWF) now AVF is functioning renal consult refusing epogen IVF boluses as needed ENT - hearing loss? Patient seen by ENT for hearing loss. Consult appreciated. Questionable true hearing loss. Patient can follow up as outpatient for testing. Hearing loss- Improving Questionable if it is selective hearing. Today no issues. DERM Peeling of skin could be allergic reaction Will continue PO Benadryl 25 mg Q6H PRN monitor for allergic rexns to meds c/w meropenem, no allergic rexn noted so far. ENDO History of DM Patient states he is no longer diabetic sugars have been stable on BMPs Psych Depression psych consult Cymbalta 20mg po od FEN IVF boluses as needed replete prn NPO for colonoscopy w/ possible biopsy today. ppx DVT: Heparin 5000 sq BID GI: Bacid PO Daily DISPO pt is stable for transfer to the floors. further care per primary team/PCP PT eval colonoscopy w/ possible biopsy today. HD annette Visit type - Emergency Visit Emergency Visit: Yes ED Registration Date: 07/24/18 Care time: The patient presented to the Emergency Department on the above date and was hospitalized for further evaluation of their emergent condition. - New Patient This patient is new to me today: Yes Date on this admission: 08/08/18 - Critical Care Critical Care patient: Yes Total Critical Care Time (in minutes): 37 Critical Care Statement: The care of this patient involved high complexity decision making to prevent further life threatening deterioration of the patient 's condition and/or to evaluate & treat vital organ system(s) failure or risk of failure.
--- NOTE | 2018-08-08 09:17 | PN ---
Progress Note (short form) - Note Progress Note: pt seen/ examined in icu comfortable for colonoscopy today denies pain afebrile Vital Signs Temp 97.6 F 08/08/18 06:00 Pulse 80 08/08/18 08:10 Resp 10 08/08/18 08:10 BP 122/67 08/08/18 08:10 Pulse Ox 99 08/07/18 21:00 Intake & Output 08/07/18 08/07/18 08/08/18 11:59 23:59 11:59 Intake Total 100 1075 135 Output Total 200 0 Balance 100 875 135 Weight 195 lb 3 oz 186 lb 8.177 oz Intake: IV 25 35 saline lock 25 35 IVPB 100 Oral 100 950 100 Output: Drainage 200 Rectal tube 200 Urine 0 0 Void 0 0 Other: Voiding Method Incontinent Bowel Movement Yes: x1 Yes Weight Measurement Method Built in Bedscale Built in Bedscale Active Medications Calcium Acetate (Phoslo -) 1,334 mg PO TIDCM [facility] Last Admin: 08/07/18 17:13 Dose: Not Given Collagenase (Santyl -) 1 applic TP DAILY [facility] Last Admin: 08/07/18 09:33 Dose: 1 applic Diphenhydramine HCl (Benadryl -) 25 mg PO Q6H PRN PRN Reason: FOR ITCHING Last Admin: 08/06/18 10:10 Dose: 25 mg Duloxetine HCl (Cymbalta -) 20 mg PO DAILY [facility] Last Admin: 08/07/18 09:31 Dose: 20 mg Heparin Sodium (Porcine) (Heparin -) 5,000 unit SQ BID [facility] Last Admin: 08/07/18 22:50 Dose: Not Given Meropenem 500 mg/ Dextrose 100 mls @ 200 mls/hr IVPB DAILY [facility] Last Admin: 08/07/18 09:32 Dose: 200 mls/hr Potassium Chloride (Potassium Chloride 10 Meq Premix Ivpb -) 10 meq in 100 mls @ 100 mls/hr IVPB Q60M [facility] Stop: 08/08/18 10:14 Lactobacillus Acidophilus (Bacid -) 1 tab PO DAILY [facility] Last Admin: 08/07/18 09:31 Dose: 1 tab CBC, BMP 08/08/18 07:15 08/08/18 07:15 Physical Exam Constitutional: Yes: No Distress, comfortable. Eyes: Yes: Conjunctiva Clear Neck: Yes: Supple. no jvd Cardiovascular: Yes: Regular Rate and Rhythm Gastrointestinal: Yes: Normal Bowel Sounds, Soft, not tender. Integumentary: Yes: heel ulcer Neurological: Yes: Alert/ awake. Assessment/Plan + ve c diff colitis clotted fistula-fixed hearing loss-- better-- hearing normal Mood disorder Heel wound Hep B stable abx per i/d meds reviewed continue present care for endo today will follow Problem List - Problems (1) Acute diarrhea Code(s): R19.7 - DIARRHEA, UNSPECIFIED (2) Bilateral pressure ulcer of feet Code(s): L89.899 - PRESSURE ULCER OF OTHER SITE, UNSPECIFIED STAGE (3) ESRD (end stage renal disease) Code(s): N18.6 - END STAGE RENAL DISEASE
[2018-08-08] MEDS: HEPARIN NA (PORCINE) 5,000 UNITS/ML 1ML VIAL SQ SCH ×2 (09:24→10:35)
[2018-08-08] MEDS: KCL 10 MEQ IVPB 10 MEQ/100 ML INFUS.BAG IVPB SCH ×2 (09:26→09:28)
[2018-08-08] MEDS: LACTOBACILLUS ACIDOPHILUS 1 TABLET PO SCH (09:27)
[2018-08-08] MEDS: DULoxetine HCL 20 MG CAPSULE.DR (FP) PO SCH (09:27)
[2018-08-08] MEDS ORDERED: PT OWN MED DRAWER 7, Y5N ONE (09:29)
[2018-08-08] MEDS: MEROPENEM 500 MG in DEXTROSE 5%-WATER 100 ML IVPB SCH (09:30)
--- NOTE | 2018-08-08 09:54 | PN ---
Progress Note (short form) - Note Progress Note: The patient was alert and was able to hear my questions this time. He was cooperative and willing to engage in conversation. However, his expressive language was adequate but sparse in content. His receptive language was adequate. He was offered psychotherapuetic support as well pain management if the need for the latter arose. He denied depression and anxiety was stated as being minimum. He was anxious to be able to return home to his new apartment. * His skilled nursing and recent memory appeared to be intact. He will be visited after his colonoscopy which will take place today.
--- NOTE | 2018-08-08 11:59 | PN ---
Teaching Attending Note Name of Resident: Serafin Bernal ATTENDING PHYSICIAN STATEMENT I saw and evaluated the patient. I reviewed the resident's note and discussed the case with the resident. I agree with the resident's findings and plan as documented. SUBJECTIVE: Pt seen and examined in the ICU. Still with diarrhea. For colonoscopy today. No fevers or chills. OBJECTIVE: Vital Signs Period Temp Pulse Resp BP Sys/Gutierrez Pulse Ox Last 24 Hr 97.6 F-98.7 F 80-98 10-18 112-163/62-81 99-99 Intake & Output 08/05/18 08/06/18 08/07/18 08/08/18 23:59 23:59 23:59 23:59 Intake Total 451 003 1088 135 Output Total 0 200 0 Balance 600 770 975 135 Weight 88.1 kg 88.536 kg 84.6 kg Gen: NAD at rest Heart: RRR Lung: decreased breath sounds at the bases Abd: soft, nontender Ext: no edema CBC, BMP 08/08/18 07:15 08/08/18 07:15 Active Medications Calcium Acetate (Phoslo -) 1,334 mg PO TIDCM [facility] Last Admin: 08/08/18 08:26 Dose: Not Given Collagenase (Santyl -) 1 applic TP DAILY [facility] Last Admin: 08/07/18 09:33 Dose: 1 applic Diphenhydramine HCl (Benadryl -) 25 mg PO Q6H PRN PRN Reason: FOR ITCHING Last Admin: 08/06/18 10:10 Dose: 25 mg Duloxetine HCl (Cymbalta -) 20 mg PO DAILY [facility] Last Admin: 08/08/18 09:27 Dose: Not Given Heparin Sodium (Porcine) (Heparin -) 5,000 unit SQ BID [facility] Last Admin: 08/08/18 10:35 Dose: Not Given Meropenem 500 mg/ Dextrose 100 mls @ 200 mls/hr IVPB DAILY [facility] Last Admin: 08/08/18 09:30 Dose: 200 mls/hr Lactobacillus Acidophilus (Bacid -) 1 tab PO DAILY [facility] Last Admin: 08/08/18 09:27 Dose: Not Given ASSESSMENT AND PLAN: Diarrhea - r/o Colitis Hypovolemia improved r/o Sepsis Lactic Acidosis resolved ESRD on HD Drug Rash Osteomyelitis Hearing Loss improved - antibiotics per ID - IVF boluses as needed - benadryl for rash - HD per renal - for colonoscopy - DVT prophylaxis - can monitor on floor
[2018-08-08] MEDS ORDERED: SODIUM CHLORIDE 250 ML IV PRN (12:18)
--- NOTE | 2018-08-08 12:18 | PN ---
Progress Note, Physician History of Present Illness: Pt seen and examined at bedside. He is awake and appears comfortable. He is going to get his endoscopy today. - Current Medication List Current Medications: Active Medications Calcium Acetate (Phoslo -) 1,334 mg PO TIDCM [facility] Last Admin: 08/08/18 08:26 Dose: Not Given Collagenase (Santyl -) 1 applic TP DAILY [facility] Last Admin: 08/07/18 09:33 Dose: 1 applic Diphenhydramine HCl (Benadryl -) 25 mg PO Q6H PRN PRN Reason: FOR ITCHING Last Admin: 08/06/18 10:10 Dose: 25 mg Duloxetine HCl (Cymbalta -) 20 mg PO DAILY [facility] Last Admin: 08/08/18 09:27 Dose: Not Given Heparin Sodium (Porcine) (Heparin -) 5,000 unit SQ BID [facility] Last Admin: 08/08/18 10:35 Dose: Not Given Meropenem 500 mg/ Dextrose 100 mls @ 200 mls/hr IVPB DAILY [facility] Last Admin: 08/08/18 09:30 Dose: 200 mls/hr Lactobacillus Acidophilus (Bacid -) 1 tab PO DAILY [facility] Last Admin: 08/08/18 09:27 Dose: Not Given - Objective Vital Signs: Vital Signs Temperature 98.3 F 08/08/18 10:00 Pulse Rate 86 08/08/18 10:00 Respiratory Rate 14 08/08/18 10:00 Blood Pressure 134/72 08/08/18 10:00 O2 Sat by Pulse Oximetry (%) 99 08/08/18 09:00 Constitutional: Yes: Calm Eyes: Yes: Conjunctiva Clear HENT: Yes: Atraumatic Cardiovascular: Yes: S1, S2 Respiratory: Yes: CTA Bilaterally Gastrointestinal: Yes: Soft Genitourinary: Yes: Incontinence Musculoskeletal: Yes: Muscle Weakness Edema: No Neurological: Yes: Oriented Psychiatric: Yes: Oriented Labs: CBC, BMP 08/08/18 07:15 08/08/18 07:15 INR, PTT INR 1.01 (0.83-1.09) 07/24/18 08:30 Problem List - Problems (1) ESRD (end stage renal disease) Code(s): N18.6 - END STAGE RENAL DISEASE Assessment/Plan Current Medications Generic Name Dose Route Start Last Admin Trade Name Freq PRN Reason Stop Dose Admin Calcium Acetate 1,334 mg 08/05/18 08:00 08/08/18 08:26 Phoslo - PO Not Given TIDCM [facility] Collagenase 1 applic 08/05/18 10:00 08/07/18 09:33 Santyl - TP 1 applic DAILY [facility] Administration Diphenhydramine HCl 25 mg 08/06/18 07:55 08/06/18 10:10 Benadryl - PO 25 mg Q6H PRN Administration FOR ITCHING Duloxetine HCl 20 mg 08/05/18 10:00 08/08/18 09:27 Cymbalta - PO Not Given DAILY [facility] Heparin Sodium (Porcine) 5,000 unit 08/04/18 22:00 08/08/18 10:35 Heparin - SQ Not Given BID IRVIN Meropenem 500 mg/ Dextrose 100 mls @ 200 mls/hr 08/05/18 10:00 08/08/18 09:30 IVPB 200 mls/hr DAILY [facility] Administration Lactobacillus Acidophilus 1 tab 08/05/18 10:00 08/08/18 09:27 Bacid - PO Not Given DAILY [facility] Impression 1. ESRD 2. anemia 3. hypokalemia 4. Hep B 5. diarrhea 6. depression 7. non-compliance with HD 8. acidosis - metabolic 9. hypocalcemia 10. hearing loss 11. sepsis Plan - pt going for endoscopy today - replace potassium - HD tomorrow - bp is stable - ID follow up, c diff toxin result negative - GI follow up for Hep B as tenofivir is on hold - will follow
[2018-08-08] MEDS ORDERED: ETOMIDATE 20 MG/10 ML AMPUL IVPUSH ONE (12:41)
--- NOTE | 2018-08-08 13:46 | PN ---
Progress Note (short form) - Note Progress Note: EGD/Colonoscopy complete. Procedure reports left in procedural section of physical chart and to be scanned into [employer]. SC heparin held until tomorrow given biopsies performed. Use SCD's as alternative form of DVT prophylaxis in interim Problem List - Problems (1) C. difficile colitis Code(s): A04.72 - ENTEROCOLITIS D/T CLOSTRIDIUM DIFFICILE, NOT SPCF RECUR
[2018-08-08] MEDS: COLLAGENASE CLOSTRIDIUM HIST. 30 GRAMS TUBE TP SCH (15:34)
--- NOTE | 2018-08-08 15:46 | PN ---
Progress Note, Physician History of Present Illness: stable no issues still weak still with dirrhoea - Current Medication List Current Medications: Active Medications Calcium Acetate (Phoslo -) 1,334 mg PO TIDCM [facility] Last Admin: 08/08/18 08:26 Dose: Not Given Collagenase (Santyl -) 1 applic TP DAILY [facility] Last Admin: 08/07/18 09:33 Dose: 1 applic Diphenhydramine HCl (Benadryl -) 25 mg PO Q6H PRN PRN Reason: FOR ITCHING Last Admin: 08/06/18 10:10 Dose: 25 mg Duloxetine HCl (Cymbalta -) 20 mg PO DAILY [facility] Last Admin: 08/08/18 09:27 Dose: Not Given Epoetin Arjun (Epogen -) 4,000 unit IVPUSH ONCE ONE Stop: 08/09/18 12:19 Heparin Sodium (Porcine) (Heparin -) 5,000 unit SQ BID [facility] Last Admin: 08/08/18 10:35 Dose: Not Given Meropenem 500 mg/ Dextrose 100 mls @ 200 mls/hr IVPB DAILY [facility] Last Admin: 08/08/18 09:30 Dose: 200 mls/hr Sodium Chloride (Normal Saline -) 250 mls @ 3,000 mls/hr IV PRN PRN PRN Reason: Hypotension during Dialysis Stop: 08/09/18 12:18 Lactobacillus Acidophilus (Bacid -) 1 tab PO DAILY [facility] Last Admin: 08/08/18 09:27 Dose: Not Given - Objective Vital Signs: Vital Signs Temperature 98.3 F 08/08/18 10:00 Pulse Rate 91 H 08/08/18 12:00 Respiratory Rate 10 08/08/18 12:00 Blood Pressure 141/77 08/08/18 12:00 O2 Sat by Pulse Oximetry (%) 99 08/08/18 09:00 Constitutional: Yes: No Distress, Calm Respiratory: Yes: Regular, CTA Bilaterally Gastrointestinal: Yes: Normal Bowel Sounds, Soft Musculoskeletal: Yes: WNL Extremities: Yes: Other Wound/Incision: Yes: Dressing Dry and Intact Neurological: Yes: Alert, Oriented Labs: CBC, BMP 08/08/18 07:15 08/08/18 07:15 INR, PTT INR 1.01 (0.83-1.09) 07/24/18 08:30 Assessment/Plan Assessment/Plan Problem List - Problems (1) Acute diarrhea Code(s): R19.7 - DIARRHEA, UNSPECIFIED (2) Bilateral pressure ulcer of feet Code(s): L89.899 - PRESSURE ULCER OF OTHER SITE, UNSPECIFIED STAGE (3) C. difficile colitis Code(s): A04.72 - ENTEROCOLITIS D/T CLOSTRIDIUM DIFFICILE, NOT SPCF RECUR (4) Chronic diarrhea Code(s): K52.9 - NONINFECTIVE GASTROENTERITIS AND COLITIS, UNSPECIFIED (5) Diabetic foot ulcer Code(s): E11.621 - TYPE 2 DIABETES MELLITUS WITH FOOT ULCER; L97.509 - NON- PRESSURE CHRONIC ULCER OTH PRT UNSP FOOT W UNSP SEVERITY Qualifiers: Diabetic foot ulcer location: heel Diabetes mellitus type: other specified (including JADON) Laterality: unspecified laterality Non-pressure ulcer stage : unspecified non-pressure ulcer stage Qualified Code(s): E13.621 - Other specified diabetes mellitus with foot ulcer; L97.409 - Non-pressure chronic ulcer of unspecified heel and midfoot with unspecified severity (6) ESRD (end stage renal disease) Code(s): N18.6 - END STAGE RENAL DISEASE (7) Generalized weakness Code(s): R53.1 - WEAKNESS (8) Sacral decubitus ulcer Code(s): L89.159 - PRESSURE ULCER OF SACRAL REGION, UNSPECIFIED STAGE 9 left heel wound patient in icu patient currently refusing all abx plan continue abx rest continue current mgmt hydration watch for dirrhoea
[2018-08-08] MEDS: DOXYCYCLINE HYCLATE 100 MG CAPSULE PO SCH (18:05)
[2018-08-09] MEDS: BANATROL PLUS POWDER PACKET PO SCH ×3 (05:18→22:12)
--- NOTE | 2018-08-09 07:06 | PN ---
Progress Note, Physician Chief Complaint: multiple loose BM;s ; poor appetite no abdominal pain - Current Medication List Current Medications: Active Medications Calcium Acetate (Phoslo -) 1,334 mg PO TIDCM [facility] Last Admin: 08/08/18 16:35 Dose: Not Given Collagenase (Santyl -) 1 applic TP DAILY [facility] Last Admin: 08/08/18 15:34 Dose: 1 applic Diphenhydramine HCl (Benadryl -) 25 mg PO Q6H PRN PRN Reason: FOR ITCHING Last Admin: 08/06/18 10:10 Dose: 25 mg Doxycycline Hyclate (Vibramycin -) 100 mg PO BID@1000,1800 [facility] Last Admin: 08/08/18 18:05 Dose: 100 mg Duloxetine HCl (Cymbalta -) 20 mg PO DAILY [facility] Last Admin: 08/08/18 09:27 Dose: Not Given Epoetin Arjun (Epogen -) 4,000 unit IVPUSH ONCE ONE Stop: 08/09/18 12:19 Heparin Sodium (Porcine) (Heparin -) 5,000 unit SQ BID [facility] Last Admin: 08/08/18 10:35 Dose: Not Given Meropenem 500 mg/ Dextrose 100 mls @ 200 mls/hr IVPB DAILY [facility] Last Admin: 08/08/18 09:30 Dose: 200 mls/hr Sodium Chloride (Normal Saline -) 250 mls @ 3,000 mls/hr IV PRN PRN PRN Reason: Hypotension during Dialysis Stop: 08/09/18 12:18 Lactobacillus Acidophilus (Bacid -) 1 tab PO DAILY [facility] Last Admin: 08/08/18 09:27 Dose: Not Given - Objective Vital Signs: Vital Signs Temperature 98.4 F 08/09/18 02:00 Pulse Rate 90 08/09/18 06:00 Respiratory Rate 16 08/09/18 06:00 Blood Pressure 98/58 L 08/09/18 06:00 O2 Sat by Pulse Oximetry (%) 100 08/08/18 21:00 Constitutional: Yes: Well Nourished, No Distress, Calm Eyes: Yes: WNL HENT: Yes: WNL Neck: Yes: WNL Cardiovascular: Yes: WNL, Regular Rate and Rhythm Respiratory: Yes: WNL, Regular Gastrointestinal: Yes: WNL, Normal Bowel Sounds, Soft Musculoskeletal: Yes: WNL Extremities: Yes: WNL Edema: No Labs: CBC, BMP 08/08/18 07:15 08/08/18 07:15 INR, PTT INR 1.01 (0.83-1.09) 07/24/18 08:30 Problem List - Problems (1) Acute diarrhea Assessment/Plan: repeat c.diff negative await gastrin and pathology results from c-scope which are pending at this time low residue lactose free diet as tolerated trial of cholestyramine for symptomatic relief Code(s): R19.7 - DIARRHEA, UNSPECIFIED
--- NOTE | 2018-08-09 08:07 | PN ---
Physical Exam: SUBJECTIVE: Patient seen and examined in the ICU. s/p EGD/colonoscopy showing mild gastritis, mild diverticulosis. HD today Hemodynamics stable overnight. No fevers, CP or SOB. OBJECTIVE: Vital Signs Period Temp Pulse Resp BP Sys/Gutierrez Pulse Ox Last 24 Hr 97.6 F-98.4 F 77-107 10-22 97-152/56-85 99-100 GENERAL: AOX3 NAD HEENT: NCAT sclera anicteric, conjunctiva clear. No ptosis. MMM NECK: Trachea midline, full range of motion, supple. LUNGS: CTAB HEART: RR tachy, S1, S2 without m/r/g ABDOMEN: Soft, NTND, hyperactive bowel sounds. +rectal tube due to incontinent dermatitis EXTREMITIES: 2+ pulses, warm, well-perfused, no edema. bilateral heel decubitus ulcer. +LUE AV fistula NEUROLOGICAL: Cranial nerves II through XII grossly intact. Normal speech, gait not observed. PSYCH: Normal mood, normal affect. SKIN: Warm, dry, normal turgor, no rash Laboratory Results - last 24 hr 08/08/18 08/08/18 07:15 14:26 Sodium 140 Potassium 3.4 L Chloride 102 Carbon Dioxide 29 Anion Gap 9 BUN 14 Creatinine 5.0 H Creat Clearance w eGFR 12.35 POC Glucometer 83.03479 Random Glucose 67 L Calcium 7.9 L Phosphorus 2.7 Magnesium 2.0 Total Bilirubin 0.4 AST 8 L ALT 9 L Alkaline Phosphatase 74 Total Protein 5.5 L Albumin 2.3 L Active Medications Generic Name Dose Route Start Last Admin Trade Name Freq PRN Reason Stop Dose Admin Calcium Acetate 1,334 mg 08/05/18 08:00 08/08/18 16:35 Phoslo - PO Not Given TIDCM IRVIN Collagenase 1 applic 08/05/18 10:00 08/08/18 15:34 Santyl - TP 1 applic DAILY IRVIN Administration Diphenhydramine HCl 25 mg 08/06/18 07:55 08/06/18 10:10 Benadryl - PO 25 mg Q6H PRN Administration FOR ITCHING Doxycycline Hyclate 100 mg 08/08/18 18:00 08/08/18 18:05 Vibramycin - PO 100 mg BID@1000,1800 IRVIN Administration Duloxetine HCl 20 mg 08/05/18 10:00 08/08/18 09:27 Cymbalta - PO Not Given DAILY IRVIN Epoetin Arjun 4,000 unit 08/09/18 12:18 Epogen - IVPUSH 08/09/18 12:19 ONCE ONE Heparin Sodium (Porcine) 5,000 unit 08/04/18 22:00 08/08/18 10:35 Heparin - SQ Not Given BID IRVIN Meropenem 500 mg/ Dextrose 100 mls @ 200 mls/hr 08/05/18 10:00 08/08/18 09:30 IVPB 200 mls/hr DAILY IRVIN Administration Sodium Chloride 250 mls @ 3,000 mls/hr 08/08/18 12:18 Normal Saline - IV 08/09/18 12:18 PRN PRN Hypotension during Dialysis Lactobacillus Acidophilus 1 tab 08/05/18 10:00 08/08/18 09:27 Bacid - PO Not Given DAILY IRVIN ASSESSMENT/PLAN: 52 yo M PMH chronic Cdiff (recently tx), ESRD (MWF), presents to the hospital with recurrent watery diarrhea now s/p rapid response for hypotension. hypotension resolved w/ IVF. NEURO AOX3 NAD no active issues Cardiac/pulm/GI/ID Diarrhea - r/o Colitis Hypovolemia - resolved Severe Sepsis - responsive to IVF. Osteomyelitis Lactic Acidosis - resolved bilateral heel wounds/decubitus ulcers chronic Cdiff (recently tx) maintain MAP>65 IVF boluses as needed, avoid fluid overload especially in ESRD O2 as needed Patient has been treated for C. Diff and C. Diff is now negative for toxin/ antigen/PCR Per GI, ideally should be on coverage for C. Diff while on abx and then 1 week after antibiotics complete, especially given recurrent nature of his C. Diff infection. will f/u w/ ID's input. UA UCx-patient refusing straight cath left heel wound cx 08/01/18 - lac ferm and non ferm Gnb, staph L coag pos, strep group B HIV, bcx, stool cx, ova/para neg CRP 17.7, ESR 20 c/w meropenem, no allergic rexn noted so far. Will use Aztreonam if patient is allergic. rectal tube to help w/ incontinent dermatitis. prt GI, can start cholestyramine to help w/ diarrhea GI follow up for Hep B as tenofivir is on hold due to possible side effect of diarrhea f/u repeat fasting gastrin level f/u chromogranin A GI consult ID consult s/p EGD/colonoscopy showing mild gastritis, mild diverticulosis f/u biopsy RENAL monitor Cr refusing loya ESRD (HD MWF) now AVF is functioning renal consult refusing epogen IVF boluses as needed ENT - hearing loss? Patient seen by ENT for hearing loss. Consult appreciated. Questionable true hearing loss. Patient can follow up as outpatient for testing. Hearing loss- Improving Questionable if it is selective hearing. Today no issues. DERM Peeling of skin could be allergic reaction Will continue PO Benadryl 25 mg Q6H PRN monitor for allergic rexns to meds c/w meropenem, no allergic rexn noted so far. ENDO History of DM Patient states he is no longer diabetic sugars have been stable on BMPs Psych Depression psych consult Cymbalta 20mg po od FEN IVF boluses as needed replete prn Renal diet, lactose free ppx DVT: Heparin 5000 sq BID GI: Bacid PO Daily DISPO pt is stable for transfer to the floors. further care per primary team/PCP PT eval HD today Visit type - Emergency Visit Emergency Visit: Yes ED Registration Date: 07/24/18 Care time: The patient presented to the Emergency Department on the above date and was hospitalized for further evaluation of their emergent condition. - New Patient This patient is new to me today: Yes Date on this admission: 08/09/18 - Critical Care Critical Care patient: Yes Total Critical Care Time (in minutes): 38 Critical Care Statement: The care of this patient involved high complexity decision making to prevent further life threatening deterioration of the patient 's condition and/or to evaluate & treat vital organ system(s) failure or risk of failure.
[2018-08-09] MEDS ORDERED: PT OWN MED DRAWER 7, Y5N ONE ×2 (09:04→11:37)
[2018-08-09] MEDS ORDERED: EPOETIN ALFA 2,000 UNIT/1 ML VIAL IVPUSH ONE (09:15)
[2018-08-09] MEDS: CALCIUM ACETATE 667 MG CAPSULE (FP) PO SCH ×3 (09:29→17:56)
[2018-08-09] MEDS: DOXYCYCLINE HYCLATE 100 MG CAPSULE PO SCH ×2 (09:29→17:59)
[2018-08-09] MEDS: DULoxetine HCL 20 MG CAPSULE.DR (FP) PO SCH (09:29)
[2018-08-09] MEDS: HEPARIN NA (PORCINE) 5,000 UNITS/ML 1ML VIAL SQ SCH ×2 (09:30→22:12)
[2018-08-09] MEDS: LACTOBACILLUS ACIDOPHILUS 1 TABLET PO SCH (09:30)
--- NOTE | 2018-08-09 10:44 | PN ---
Progress Note, Physician History of Present Illness: Pt seen and examined at bedside. He is awake and alert. He denies shortness of breath. He is getting HD. - Current Medication List Current Medications: Active Medications Calcium Acetate (Phoslo -) 1,334 mg PO TIDCM [facility] Last Admin: 08/09/18 09:29 Dose: Not Given Collagenase (Santyl -) 1 applic TP DAILY [facility] Last Admin: 08/08/18 15:34 Dose: 1 applic Diphenhydramine HCl (Benadryl -) 25 mg PO Q6H PRN PRN Reason: FOR ITCHING Last Admin: 08/06/18 10:10 Dose: 25 mg Doxycycline Hyclate (Vibramycin -) 100 mg PO BID@1000,1800 [facility] Last Admin: 08/09/18 09:29 Dose: 100 mg Duloxetine HCl (Cymbalta -) 20 mg PO DAILY [facility] Last Admin: 08/09/18 09:29 Dose: 20 mg Heparin Sodium (Porcine) (Heparin -) 5,000 unit SQ BID [facility] Last Admin: 08/09/18 09:30 Dose: Not Given Meropenem 500 mg/ Dextrose 100 mls @ 200 mls/hr IVPB DAILY [facility] Last Admin: 08/08/18 09:30 Dose: 200 mls/hr Sodium Chloride (Normal Saline -) 250 mls @ 3,000 mls/hr IV PRN PRN PRN Reason: Hypotension during Dialysis Stop: 08/09/18 12:18 Lactobacillus Acidophilus (Bacid -) 1 tab PO DAILY [facility] Last Admin: 08/09/18 09:30 Dose: 1 tab - Objective Vital Signs: Vital Signs Temperature 97.8 F 08/09/18 10:00 Pulse Rate 76 08/09/18 10:00 Respiratory Rate 14 08/09/18 10:00 Blood Pressure 122/62 08/09/18 10:00 O2 Sat by Pulse Oximetry (%) 98 08/09/18 09:00 Constitutional: Yes: Calm Eyes: Yes: Conjunctiva Clear HENT: Yes: Atraumatic Neck: Yes: Supple Cardiovascular: Yes: S1, S2 Respiratory: Yes: CTA Bilaterally Gastrointestinal: Yes: Normal Bowel Sounds, Soft Genitourinary: Yes: Incontinence Musculoskeletal: Yes: Muscle Weakness Edema: Yes Edema: LLE: Trace, RLE: Trace Neurological: Yes: Oriented Labs: CBC, BMP 08/08/18 07:15 08/08/18 07:15 INR, PTT INR 1.01 (0.83-1.09) 07/24/18 08:30 Problem List - Problems (1) ESRD (end stage renal disease) Code(s): N18.6 - END STAGE RENAL DISEASE Assessment/Plan Current Medications Generic Name Dose Route Start Last Admin Trade Name Freq PRN Reason Stop Dose Admin Calcium Acetate 1,334 mg 08/05/18 08:00 08/09/18 09:29 Phoslo - PO Not Given TIDCM IRVIN Collagenase 1 applic 08/05/18 10:00 08/08/18 15:34 Santyl - TP 1 applic DAILY IRVIN Administration Diphenhydramine HCl 25 mg 08/06/18 07:55 08/06/18 10:10 Benadryl - PO 25 mg Q6H PRN Administration FOR ITCHING Doxycycline Hyclate 100 mg 08/08/18 18:00 08/09/18 09:29 Vibramycin - PO 100 mg BID@1000,1800 IRVIN Administration Duloxetine HCl 20 mg 08/05/18 10:00 08/09/18 09:29 Cymbalta - PO 20 mg DAILY IRVIN Administration Heparin Sodium (Porcine) 5,000 unit 08/04/18 22:00 08/09/18 09:30 Heparin - SQ Not Given BID IRVIN Meropenem 500 mg/ Dextrose 100 mls @ 200 mls/hr 08/05/18 10:00 08/08/18 09:30 IVPB 200 mls/hr DAILY IRVIN Administration Sodium Chloride 250 mls @ 3,000 mls/hr 08/08/18 12:18 Normal Saline - IV 08/09/18 12:18 PRN PRN Hypotension during Dialysis Lactobacillus Acidophilus 1 tab 08/05/18 10:00 08/09/18 09:30 Bacid - PO 1 tab DAILY IRVIN Administration Impression 1. ESRD 2. anemia 3. hypokalemia 4. Hep B 5. diarrhea 6. depression 7. non-compliance with HD 8. acidosis - metabolic 9. hypocalcemia 10. hearing loss 11. sepsis Plan - HD today - GI workup for diarrhea - monitor bp - wound care to leg - GI follow up for Hep B as tenofivir is on hold - will follow
--- NOTE | 2018-08-09 11:07 | PN ---
Progress Note (short form) - Note Progress Note: decreased bm appetite decreased has diarrhea very depressed , does not want care per RN frustrated his girlfriend at bedside Vital Signs - 24 hr 08/08/18 08/08/18 08/08/18 13:55 14:15 14:30 Temperature 97.6 F 97.6 F 97.6 F Pulse Rate 97 H 101 H 101 H Respiratory 20 20 20 Rate Blood Pressure 135/72 129/67 151/70 O2 Sat by Pulse 100 100 100 Oximetry (%) 08/08/18 08/08/18 08/08/18 15:00 15:30 20:00 Temperature 97.6 F 97.6 F 98.1 F Pulse Rate 107 H 102 H 91 H Respiratory 20 20 22 H Rate Blood Pressure 147/85 152/85 113/63 O2 Sat by Pulse 100 100 Oximetry (%) 08/08/18 08/09/18 08/09/18 21:00 00:00 02:00 Temperature 98.4 F Pulse Rate 77 86 Respiratory 11 13 11 Rate Blood Pressure 97/56 L 97/56 L O2 Sat by Pulse 100 Oximetry (%) 08/09/18 08/09/18 08/09/18 06:00 08:59 09:00 Temperature Pulse Rate 90 88 Respiratory 16 16 Rate Blood Pressure 98/58 L 135/66 O2 Sat by Pulse 98 Oximetry (%) 08/09/18 08/09/18 08/09/18 09:50 10:00 10:30 Temperature 97.8 F 97.8 F Pulse Rate 74 78 89 Respiratory 18 18 18 Rate Blood Pressure 118/60 122/62 103/63 O2 Sat by Pulse Oximetry (%) 08/09/18 08/09/18 08/09/18 11:00 11:30 12:00 Temperature Pulse Rate 80 82 84 Respiratory 18 18 18 Rate Blood Pressure 120/60 136/72 135/70 O2 Sat by Pulse Oximetry (%) Current Medications Generic Name Dose Route Start Last Admin Trade Name Freq PRN Reason Stop Dose Admin Calcium Acetate 1,334 mg 08/05/18 08:00 08/09/18 12:36 Phoslo - PO Not Given TIDCM IRVIN Collagenase 1 applic 08/05/18 10:00 08/08/18 15:34 Santyl - TP 1 applic DAILY IRVIN Administration Diphenhydramine HCl 25 mg 08/06/18 07:55 08/06/18 10:10 Benadryl - PO 25 mg Q6H PRN Administration FOR ITCHING Doxycycline Hyclate 100 mg 08/08/18 18:00 08/09/18 09:29 Vibramycin - PO 100 mg BID@1000,1800 IRVIN Administration Duloxetine HCl 20 mg 08/05/18 10:00 08/09/18 09:29 Cymbalta - PO 20 mg DAILY IRVIN Administration Heparin Sodium (Porcine) 5,000 unit 08/04/18 22:00 08/09/18 09:30 Heparin - SQ Not Given BID IRVIN Meropenem 500 mg/ Dextrose 100 mls @ 200 mls/hr 08/05/18 10:00 08/09/18 11:39 IVPB 200 mls/hr DAILY IRVIN Administration Lactobacillus Acidophilus 1 tab 08/05/18 10:00 08/09/18 09:30 Bacid - PO 1 tab DAILY IRVIN Administration Laboratory Results - last 24 hr 08/08/18 14:26 POC Glucometer 83.84957 Constitutional: Yes: No Distress, Calm Eyes: Yes: Conjunctiva Clear Neck: Yes: Supple Cardiovascular: Yes: Regular Rate and Rhythm Gastrointestinal: Yes: Normal Bowel Sounds, Soft, not tender Edema: yes- hands Integumentary: Yes: Other (history of heel ulcers--- follows at wound care.) Neurological: Yes: Alert Assessment/Plan blood cultures negative he is refusing his meds continue with local wound care on iv meropenum cdiff pcr negative colonoscopy and EGD done-- biopsies taken Problem List - Problems (1) Acute diarrhea Code(s): R19.7 - DIARRHEA, UNSPECIFIED (2) Bilateral pressure ulcer of feet Code(s): L89.899 - PRESSURE ULCER OF OTHER SITE, UNSPECIFIED STAGE (3) C. difficile colitis Code(s): A04.72 - ENTEROCOLITIS D/T CLOSTRIDIUM DIFFICILE, NOT SPCF RECUR (4) Chronic diarrhea Code(s): K52.9 - NONINFECTIVE GASTROENTERITIS AND COLITIS, UNSPECIFIED (5) Diabetic foot ulcer Code(s): E11.621 - TYPE 2 DIABETES MELLITUS WITH FOOT ULCER; L97.509 - NON- PRESSURE CHRONIC ULCER OTH PRT UNSP FOOT W UNSP SEVERITY Qualifiers: Diabetic foot ulcer location: heel Diabetes mellitus type: other specified (including JADON) Laterality: unspecified laterality Non-pressure ulcer stage : unspecified non-pressure ulcer stage Qualified Code(s): E13.621 - Other specified diabetes mellitus with foot ulcer; L97.409 - Non-pressure chronic ulcer of unspecified heel and midfoot with unspecified severity (6) ESRD (end stage renal disease) Code(s): N18.6 - END STAGE RENAL DISEASE (7) Generalized weakness Code(s): R53.1 - WEAKNESS (8) Sacral decubitus ulcer Code(s): L89.159 - PRESSURE ULCER OF SACRAL REGION, UNSPECIFIED STAGE
--- NOTE | 2018-08-09 11:11 | PN ---
Teaching Attending Note Name of Resident: Serafin Bernal ATTENDING PHYSICIAN STATEMENT I saw and evaluated the patient. I reviewed the resident's note and discussed the case with the resident. I agree with the resident's findings and plan as documented. SUBJECTIVE: Pt seen and examined in the ICU. s/p EGD/colonoscopy showing mild gastritis, mild diverticulosis. Pt frustrated regarding lack of improvement of diarrhea. OBJECTIVE: Vital Signs Period Temp Pulse Resp BP Sys/Gutierrez Pulse Ox Last 24 Hr 97.6 F-98.4 F 74-107 10 97-152/56-85 98-100 Intake & Output 08/06/18 08/07/18 08/08/18 08/09/18 23:59 23:59 23:59 23:59 Intake Total 770 1175 755 Output Total 200 300 Balance 770 975 455 Weight 88.1 kg 88.536 kg 84.6 kg 83.4 kg Gen: NAD at rest Heart: RRR Lung: decreased breath sounds at the bases Abd: soft, nontender Ext: no edema CBC, BMP 08/08/18 07:15 08/08/18 07:15 Active Medications Calcium Acetate (Phoslo -) 1,334 mg PO TIDCM [facility] Last Admin: 08/09/18 09:29 Dose: Not Given Collagenase (Santyl -) 1 applic TP DAILY [facility] Last Admin: 08/08/18 15:34 Dose: 1 applic Diphenhydramine HCl (Benadryl -) 25 mg PO Q6H PRN PRN Reason: FOR ITCHING Last Admin: 08/06/18 10:10 Dose: 25 mg Doxycycline Hyclate (Vibramycin -) 100 mg PO BID@1000,1800 [facility] Last Admin: 08/09/18 09:29 Dose: 100 mg Duloxetine HCl (Cymbalta -) 20 mg PO DAILY [facility] Last Admin: 08/09/18 09:29 Dose: 20 mg Heparin Sodium (Porcine) (Heparin -) 5,000 unit SQ BID [facility] Last Admin: 08/09/18 09:30 Dose: Not Given Meropenem 500 mg/ Dextrose 100 mls @ 200 mls/hr IVPB DAILY [facility] Last Admin: 08/08/18 09:30 Dose: 200 mls/hr Sodium Chloride (Normal Saline -) 250 mls @ 3,000 mls/hr IV PRN PRN PRN Reason: Hypotension during Dialysis Stop: 08/09/18 12:18 Lactobacillus Acidophilus (Bacid -) 1 tab PO DAILY [facility] Last Admin: 08/09/18 09:30 Dose: 1 tab ASSESSMENT AND PLAN: Diarrhea Hypovolemia improved r/o Sepsis Lactic Acidosis resolved ESRD on HD Drug Rash improved Osteomyelitis Hearing Loss improved - d/w GI possible anti-diarrheal agents - f/u pathology - antibiotics per ID - HD per renal - DVT prophylaxis - can monitor on floor
[2018-08-09] MEDS: MEROPENEM 500 MG in DEXTROSE 5%-WATER 100 ML IVPB SCH (11:39)
[2018-08-09] MEDS ORDERED: CHOLESTYRAMINE/SUCROSE 4 GM PACKET PO ONE (14:15)
[2018-08-09] MEDS: COLLAGENASE CLOSTRIDIUM HIST. 30 GRAMS TUBE TP SCH (16:01)
--- NOTE | 2018-08-09 16:09 | PATH ---
Surgical Pathology Report Patient Name: FLORESITA GEORGES [facility]. Rec. #: [id number] /Age/Gender: 1965 (Age: 52) / M Account: [id number] Location: ICU [employer]PER[employer] Taken: 08/08/2018 Received: 08/08/2018 Reported: 08/09/2018 Physicians: Mat Arroyo M.D. Specimen(s) Received A: BX DUODENUM B: BX ANGULARIS C: BX ANTRUM AND BODY D: BX TERMINAL ILEUM E: BX RIGHT COLON F: BX TRANSVERSE COLON G: BX DESCENDING COLON H: BX SIGMOID I: BX RECTUM Clinical History GI bleeding Postoperative diagnosis: Gastritis, diverticulosis, rule out microscopic colitis, colon polyp Final Diagnosis A. DUODENUM, BIOPSY: DUODENAL MUCOSA WITHOUT SIGNIFICANT PATHOLOGIC FINDINGS. B. STOMACH, ANGULARIS, BIOPSY: GASTRIC MUCOSA WITH MILD CHRONIC GASTRITIS. IMMUNOHISTOCHEMICAL STAIN FOR H. PYLORI IS NEGATIVE. C. STOMACH, ANTRUM AND BODY, BIOPSY: GASTRIC ANTRAL AND BODY MUCOSA WITH MILD CHRONIC GASTRITIS. IMMUNOHISTOCHEMICAL STAIN FOR H. PYLORI IS NEGATIVE. D. TERMINAL ILEUM, BIOPSY: ILEAL MUCOSA WITHOUT SIGNIFICANT PATHOLOGIC FINDINGS. E. COLON, RIGHT, BIOPSY: COLONIC MUCOSA WITH FOCAL ACTIVE COLITIS. SEE COMMENT. F. TRANSVERSE COLON, BIOPSY: COLONIC MUCOSA WITH FOCAL ACTIVE COLITIS AND SMALL LYMPHOID AGGREGATE WITHIN LAMINA PROPRIA. SEE COMMENT. G. DESCENDING COLON, BIOPSY: COLONIC MUCOSA WITH FOCAL ACTIVE COLITIS. SEE COMMENT. H. SIGMOID COLON, BIOPSY: POLYPOID COLONIC MUCOSA WITH MILD ACUTE COLITIS. SEE COMMENT. I. RECTUM, BIOPSY: POLYPOID COLONIC MUCOSA WITH MODERATE ACUTE COLITIS INCLUDING ACUTE CRYPTITIS, CRYPT ABSCESS, AND SUPERFICIAL HYPERPLASTIC FEATURES. SEE COMMENT. Comment: Findings are non-specific. Although acute self-limited colitis is a consideration, among other conditions, the possibility of early inflammatory bowel disease cannot be completely excluded. Suggest clinical/radiologic correlation. Electronically Signed Blanquita Fagan M.D. Gross Description A. Received in formalin, labeled "biopsy duodenum" are 4 lr, irregular portions of soft tissue ranging from 0.1-0.3 cm. in greatest dimension. The specimens are submitted in toto in one cassette. B. Received in formalin, labeled "biopsy angularis" is a lr, irregular portion of soft tissue measuring 0.4 cm. in greatest dimension. The specimen is submitted in toto in one cassette. C. Received in formalin, labeled "biopsy antrum and body" are 3 lr, irregular portions of soft tissue ranging from 0.2-0.3 cm. in greatest dimension. The specimens are submitted in toto in one cassette. D. Received in formalin, labeled "biopsy terminal ileum" are 3 lr, irregular portions of soft tissue averaging 0.3 cm. in greatest dimension. The specimens are submitted in toto in one cassette. E. Received in formalin, labeled "biopsy right colon" are 2 lr, irregular portions of soft tissue averaging 0.5 cm. in greatest dimension. The specimens are submitted in toto in one cassette. F. Received in formalin, labeled "biopsy transverse colon" are 8 lr, irregular portions of soft tissue ranging from 0.1-0.3 cm. in greatest dimension. The specimens are submitted in toto in one cassette. G. Received in formalin labeled "biopsy descending and sigmoid" is a 0.8 x 0.6 x 0.1 cm aggregate of lr soft tissue fragments. The formalin is filtered and the specimen is entirely submitted in one cassette. H. Received in formalin, labeled "biopsy sigmoid colon" is a lr, irregular portion of soft tissue measuring 0.4 cm. in greatest dimension. The specimen is submitted in toto in one cassette. I. Received in formalin, labeled "biopsy rectum" are 2 lr, irregular portions of soft tissue measuring 0.2 and 0.3 cm. in greatest dimension. The specimens are submitted in toto in one cassette. 08/08/2018 saudi08/08/2018
--- NOTE | 2018-08-09 17:49 | PN ---
Progress Note (short form) - Note Progress Note: Patient was seen briefly. He was not interested in counseling and his status was unchanged from the last visit. Although he denies depression, it is evident that he is dysthymic. Continued psychiatric oversight as to psychotropic application is suggested.
--- NOTE | 2018-08-09 20:39 | PN ---
Progress Note, Physician History of Present Illness: stable no issues still weak still with dirrhoea gi following all results noted - Current Medication List Current Medications: Active Medications Calcium Acetate (Phoslo -) 1,334 mg PO TIDCM [facility] Last Admin: 08/09/18 17:56 Dose: Not Given Cholestyramine Resin (Questran Packet -) 4 gm PO BID [facility] Collagenase (Santyl -) 1 applic TP DAILY [facility] Last Admin: 08/09/18 16:01 Dose: 1 applic Diphenhydramine HCl (Benadryl -) 25 mg PO Q6H PRN PRN Reason: FOR ITCHING Last Admin: 08/06/18 10:10 Dose: 25 mg Doxycycline Hyclate (Vibramycin -) 100 mg PO BID@1000,1800 [facility] Last Admin: 08/09/18 17:59 Dose: 100 mg Duloxetine HCl (Cymbalta -) 20 mg PO DAILY [facility] Last Admin: 08/09/18 09:29 Dose: 20 mg Heparin Sodium (Porcine) (Heparin -) 5,000 unit SQ BID [facility] Last Admin: 08/09/18 09:30 Dose: Not Given Meropenem 500 mg/ Dextrose 100 mls @ 200 mls/hr IVPB DAILY [facility] Last Admin: 08/09/18 11:39 Dose: 200 mls/hr Lactobacillus Acidophilus (Bacid -) 1 tab PO DAILY [facility] Last Admin: 08/09/18 09:30 Dose: 1 tab - Objective Vital Signs: Vital Signs Temperature 97 F L 08/09/18 17:54 Pulse Rate 88 08/09/18 17:54 Respiratory Rate 18 08/09/18 17:54 Blood Pressure 150/88 08/09/18 17:54 O2 Sat by Pulse Oximetry (%) 98 08/09/18 09:00 Constitutional: Yes: No Distress, Calm Cardiovascular: Yes: Regular Rate and Rhythm Respiratory: Yes: Regular, CTA Bilaterally Gastrointestinal: Yes: Normal Bowel Sounds, Soft Musculoskeletal: Yes: Other Extremities: Yes: Other Wound/Incision: Yes: Dressing Dry and Intact Neurological: Yes: Alert, Oriented Psychiatric: Yes: Alert, Oriented Labs: CBC, BMP 08/08/18 07:15 08/08/18 07:15 INR, PTT INR 1.01 (0.83-1.09) 07/24/18 08:30 Assessment/Plan Assessment/Plan Problem List - Problems (1) Acute diarrhea Code(s): R19.7 - DIARRHEA, UNSPECIFIED (2) Bilateral pressure ulcer of feet Code(s): L89.899 - PRESSURE ULCER OF OTHER SITE, UNSPECIFIED STAGE (3) C. difficile colitis Code(s): A04.72 - ENTEROCOLITIS D/T CLOSTRIDIUM DIFFICILE, NOT SPCF RECUR (4) Chronic diarrhea Code(s): K52.9 - NONINFECTIVE GASTROENTERITIS AND COLITIS, UNSPECIFIED (5) Diabetic foot ulcer Code(s): E11.621 - TYPE 2 DIABETES MELLITUS WITH FOOT ULCER; L97.509 - NON- PRESSURE CHRONIC ULCER OTH PRT UNSP FOOT W UNSP SEVERITY Qualifiers: Diabetic foot ulcer location: heel Diabetes mellitus type: other specified (including JADON) Laterality: unspecified laterality Non-pressure ulcer stage : unspecified non-pressure ulcer stage Qualified Code(s): E13.621 - Other specified diabetes mellitus with foot ulcer; L97.409 - Non-pressure chronic ulcer of unspecified heel and midfoot with unspecified severity (6) ESRD (end stage renal disease) Code(s): N18.6 - END STAGE RENAL DISEASE (7) Generalized weakness Code(s): R53.1 - WEAKNESS (8) Sacral decubitus ulcer Code(s): L89.159 - PRESSURE ULCER OF SACRAL REGION, UNSPECIFIED STAGE 9 left heel wound plan continue abx rest continue current mgmt hydration watch for dirrhoea
[2018-08-09] MEDS: CHOLESTYRAMINE/SUCROSE 4 GM PACKET PO SCH (22:12)
[2018-08-10 06:00] LABS: BASO % 1.4 % (0-2.0); EOS % 4.4 % (0-4.5); HEMATOCRIT 26.8 % (35.4-49); HEMOGLOBIN 8.5 GM/dL (11.7-16.9); LYMPH % 30.6 % (8-40); MCH 29.9 pg (25.7-33.7); MCHC 31.7 g/dl (32.0-35.9); MEAN CELL VOLUME 94.3 fl (80-96); MEAN PLT VOLUME 8.4 fl (7.5-11.1); MONO % 10.4 % (3.8-10.2); NEUT % 53.2 % (42.8-82.8); PLATELET COUNT 139 K/MM3 (134-434); RBC 2.84 M/mm3 (4.00-5.60); RDW 14.9 % (11.9-15.9); WHITE BLOOD COUNT 4.2 K/mm3 (4.0-10.0)
[2018-08-10] MEDS: BANATROL PLUS POWDER PACKET PO SCH ×3 (06:30→21:37)
[2018-08-10 06:31] LABS: ALBUMIN 2.3 g/dl (3.4-5.0); ALK PHOS 64 U/L (45-117); ANION GAP 8 MMOL/L (8-16); BILIRUBIN,TOTAL 0.4 mg/dL (0.2-1); BLOOD UREA NITROGEN 11 mg/dL (7-18); CALCIUM 7.7 mg/dL (8.5-10.1); CHLORIDE 107 mmol/L (98-107); CO2 30 mmol/L (21-32); CREATININE 4.6 mg/dL (0.55-1.3); GLUCOSE,RANDOM 81 mg/dL (74-106); MAGNESIUM 1.9 mg/dL (1.8-2.4); PHOSPHOROUS 2.5 mg/dL (2.5-4.9); POTASSIUM 3.1 mmol/L (3.5-5.1); SGOT/AST 4 U/L (15-37); SGPT/ALT < 6 U/L (13-61); SODIUM 145 mmol/L (136-145)
[2018-08-10] MEDS ORDERED: POTASSIUM CHLORIDE TABS 20 MEQ TABLET.ER (FP) PO ONE ×2 (08:33→09:30)
--- NOTE | 2018-08-10 08:38 | PN ---
Physical Exam: SUBJECTIVE: Patient seen and examined in the ICU. s/p EGD/colonoscopy showing mild gastritis, mild diverticulosis. Still with diarrhea. Pathology back showing areas of focal colitis as well as acute cryptitis and crypt abscesses in the rectum. HD annette. Hemodynamics stable overnight. No fevers, CP or SOB. OBJECTIVE: Vital Signs Period Temp Pulse Resp BP Sys/Gutierrez Pulse Ox Last 24 Hr 97 F-97.8 F 74-100 14-18 103-150/60-88 98-98 GENERAL: AOX3 NAD HEENT: NCAT sclera anicteric, conjunctiva clear. No ptosis. MMM NECK: Trachea midline, full range of motion, supple. LUNGS: CTAB HEART: RR tachy, S1, S2 without m/r/g ABDOMEN: Soft, NTND, hyperactive bowel sounds. EXTREMITIES: 2+ pulses, warm, well-perfused, no edema. bilateral heel decubitus ulcer. +LUE AV fistula NEUROLOGICAL: Cranial nerves II through XII grossly intact. Normal speech, gait not observed. PSYCH: Normal mood, normal affect. SKIN: Warm, dry, normal turgor, no rash. skin peeling Laboratory Results - last 24 hr 08/07/18 08/09/18 08/10/18 12:20 18:36 05:30 WBC 4.2 RBC 2.84 L Hgb 8.5 L Hct 26.8 L MCV 94.3 MCH 29.9 MCHC 31.7 L RDW 14.9 Plt Count 139 MPV 8.4 Absolute Neuts (auto) 2.2 Neutrophils % 53.2 Lymphocytes % 30.6 Monocytes % 10.4 H Eosinophils % 4.4 Basophils % 1.4 Nucleated RBC % 0 Sodium Potassium Chloride Carbon Dioxide Anion Gap BUN Creatinine Creat Clearance w eGFR POC Glucometer [phone] Random Glucose Calcium Phosphorus Magnesium Total Bilirubin AST ALT Alkaline Phosphatase Total Protein Albumin Chromogranin A 21 H 08/10/18 05:30 WBC RBC Hgb Hct MCV MCH MCHC RDW Plt Count MPV Absolute Neuts (auto) Neutrophils % Lymphocytes % Monocytes % Eosinophils % Basophils % Nucleated RBC % Sodium 145 Potassium 3.1 L Chloride 107 Carbon Dioxide 30 Anion Gap 8 BUN 11 Creatinine 4.6 H Creat Clearance w eGFR 13.59 POC Glucometer Random Glucose 81 Calcium 7.7 L Phosphorus 2.5 Magnesium 1.9 Total Bilirubin 0.4 AST 4 L ALT < 6 L Alkaline Phosphatase 64 Total Protein 5.0 L Albumin 2.3 L Chromogranin A Active Medications Generic Name Dose Route Start Last Admin Trade Name Freq PRN Reason Stop Dose Admin Calcium Acetate 1,334 mg 08/05/18 08:00 08/09/18 17:56 Phoslo - PO Not Given TIDCM [facility] Cholestyramine Resin 4 gm 08/09/18 22:00 08/09/18 22:12 Questran Packet - PO Not Given BID IRVIN Collagenase 1 applic 08/05/18 10:00 08/09/18 16:01 Santyl - TP 1 applic DAILY IRVIN Administration Diphenhydramine HCl 25 mg 08/06/18 07:55 08/06/18 10:10 Benadryl - PO 25 mg Q6H PRN Administration FOR ITCHING Doxycycline Hyclate 100 mg 08/08/18 18:00 08/09/18 17:59 Vibramycin - PO 100 mg BID@1000,1800 IRVIN Administration Duloxetine HCl 20 mg 08/05/18 10:00 08/09/18 09:29 Cymbalta - PO 20 mg DAILY IRVIN Administration Heparin Sodium (Porcine) 5,000 unit 08/04/18 22:00 08/09/18 22:12 Heparin - SQ Not Given BID IRVIN Meropenem 500 mg/ Dextrose 100 mls @ 200 mls/hr 08/05/18 10:00 08/09/18 11:39 IVPB 200 mls/hr DAILY IRVIN Administration Potassium Chloride 10 meq in 100 mls @ 100 mls/hr 08/10/18 08:45 Potassium Chloride 10 Meq Premix Ivpb - IVPB 08/10/18 11:44 Q60M IRVIN Lactobacillus Acidophilus 1 tab 08/05/18 10:00 08/09/18 09:30 Bacid - PO 1 tab DAILY IRVIN Administration Potassium Chloride 20 meq 08/10/18 08:33 K-Dur - PO 08/10/18 08:34 ONCE ONE ASSESSMENT/PLAN: 52 yo M PMH chronic Cdiff (recently tx), ESRD (MWF), presents to the hospital with recurrent watery diarrhea now s/p rapid response for hypotension. hypotension resolved w/ IVF. NEURO AOX3 NAD no active issues Cardiac/pulm/GI/ID Diarrhea - r/o Colitis Hypovolemia - resolved Severe Sepsis - responsive to IVF. Osteomyelitis Lactic Acidosis - resolved bilateral heel wounds/decubitus ulcers chronic Cdiff (recently tx) maintain MAP>65 IVF boluses as needed, avoid fluid overload especially in ESRD O2 as needed Patient has been treated for C. Diff and C. Diff is now negative for toxin/ antigen/PCR Per GI, ideally should be on coverage for C. Diff while on abx and then 1 week after antibiotics complete, especially given recurrent nature of his C. Diff infection. will f/u w/ ID's input. UA UCx-patient refusing straight cath left heel wound cx 08/01/18 - lac ferm and non ferm Gnb, staph L coag pos, strep group B HIV, bcx, stool cx, ova/para neg CRP 17.7, ESR 20 c/w meropenem/doxycycline, no allergic rexn noted so far. Will use Aztreonam if patient is allergic. rectal tube prn to help w/ incontinent dermatitis. c/w cholestyramine to help w/ diarrhea GI follow up for Hep B as tenofivir is on hold due to possible side effect of diarrhea f/u repeat fasting gastrin level chromogranin A elevated 21 GI consult ID consult s/p EGD/colonoscopy showing mild gastritis, mild diverticulosis Pathology back showing areas of focal colitis as well as acute cryptitis and crypt abscesses in the rectum. d/w GI pathology results RENAL monitor Cr refusing loya ESRD (HD MWF) now AVF is functioning renal consult IVF boluses as needed ENT - hearing loss? Patient seen by ENT for hearing loss. Consult appreciated. Questionable true hearing loss. Patient can follow up as outpatient for testing. Hearing loss- Improving Questionable if it is selective hearing. Today no issues. DERM Peeling of skin could be allergic reaction c/w PO Benadryl 25 mg Q6H PRN monitor for allergic rexns to meds c/w meropenem, no allergic rexn noted so far. ENDO History of DM Patient states he is no longer diabetic sugars have been stable on BMPs Psych Depression psych consult Cymbalta 20mg po od FEN IVF boluses as needed replete prn Renal diet, lactose free ppx DVT: Heparin 5000 sq BID GI: Bacid PO Daily DISPO pt is stable for transfer to the floors. further care per primary team/PCP PT eval HD annette Visit type - Emergency Visit Emergency Visit: Yes ED Registration Date: 07/24/18 Care time: The patient presented to the Emergency Department on the above date and was hospitalized for further evaluation of their emergent condition. - New Patient This patient is new to me today: Yes Date on this admission: 08/10/18 - Critical Care Critical Care patient: Yes Total Critical Care Time (in minutes): 39 Critical Care Statement: The care of this patient involved high complexity decision making to prevent further life threatening deterioration of the patient 's condition and/or to evaluate & treat vital organ system(s) failure or risk of failure.
[2018-08-10] MEDS ORDERED: KCL 10 MEQ IVPB 10 MEQ/100 ML INFUS.BAG IVPB SCH (08:45)
[2018-08-10] MEDS ORDERED: PT OWN MED DRAWER 7, Y5N ONE ×4 (08:55→21:21)
[2018-08-10] MEDS: CHOLESTYRAMINE/SUCROSE 4 GM PACKET PO SCH ×2 (09:03→21:36)
[2018-08-10] MEDS: MEROPENEM 500 MG in DEXTROSE 5%-WATER 100 ML IVPB SCH (09:04)
[2018-08-10] MEDS: LACTOBACILLUS ACIDOPHILUS 1 TABLET PO SCH (09:04)
[2018-08-10] MEDS: DOXYCYCLINE HYCLATE 100 MG CAPSULE PO SCH ×3 (09:13→17:21)
[2018-08-10] MEDS: DULoxetine HCL 20 MG CAPSULE.DR (FP) PO SCH (09:13)
[2018-08-10] MEDS: CALCIUM ACETATE 667 MG CAPSULE (FP) PO SCH ×4 (10:01→17:21)
[2018-08-10] MEDS: COLLAGENASE CLOSTRIDIUM HIST. 30 GRAMS TUBE TP SCH (10:02)
[2018-08-10] MEDS: HEPARIN NA (PORCINE) 5,000 UNITS/ML 1ML VIAL SQ SCH ×2 (10:02→21:37)
--- NOTE | 2018-08-10 11:03 | PN ---
Progress Note (short form) - Note Progress Note: appetite decreased has diarrhea very depressed , does not want care per RN frustrated Vital Signs - 24 hr 08/09/18 08/09/18 08/09/18 13:00 13:02 13:16 Temperature Pulse Rate 80 77 100 H Respiratory 18 17 18 Rate Blood Pressure 128/70 136/80 136/85 O2 Sat by Pulse Oximetry (%) 08/09/18 08/09/18 08/10/18 17:54 21:00 05:00 Temperature 97 F L Pulse Rate 88 91 H Respiratory 18 18 16 Rate Blood Pressure 150/88 137/76 O2 Sat by Pulse 98 Oximetry (%) 08/10/18 08/10/18 08/10/18 08:00 08:48 09:00 Temperature Pulse Rate 90 Respiratory 16 16 Rate Blood Pressure 153/81 153/80 O2 Sat by Pulse 98 Oximetry (%) 08/10/18 10:00 Temperature 99.2 F Pulse Rate 88 Respiratory 16 Rate Blood Pressure 117/72 O2 Sat by Pulse Oximetry (%) Current Medications Generic Name Dose Route Start Last Admin Trade Name Freq PRN Reason Stop Dose Admin Calcium Acetate 1,334 mg 08/05/18 08:00 08/10/18 10:01 Phoslo - PO Not Given TIDCM [facility] Cholestyramine Resin 4 gm 08/09/18 22:00 08/10/18 09:03 Questran Packet - PO 4 gm BID IRVIN Administration Collagenase 1 applic 08/05/18 10:00 08/10/18 10:02 Santyl - TP 1 applic DAILY IRVIN Administration Diphenhydramine HCl 25 mg 08/06/18 07:55 08/06/18 10:10 Benadryl - PO 25 mg Q6H PRN Administration FOR ITCHING Doxycycline Hyclate 100 mg 08/08/18 18:00 08/10/18 09:13 Vibramycin - PO 100 mg BID@1000,1800 IRVIN Administration Duloxetine HCl 20 mg 08/05/18 10:00 08/10/18 09:13 Cymbalta - PO 20 mg DAILY IRVIN Administration Heparin Sodium (Porcine) 5,000 unit 08/04/18 22:00 08/10/18 10:02 Heparin - SQ Not Given BID IRVIN Meropenem 500 mg/ Dextrose 100 mls @ 200 mls/hr 08/05/18 10:00 08/10/18 09:04 IVPB 200 mls/hr DAILY IRVIN Administration Lactobacillus Acidophilus 1 tab 08/05/18 10:00 08/10/18 09:04 Bacid - PO 1 tab DAILY IRVIN Administration Laboratory Results - last 24 hr 08/07/18 08/09/18 08/10/18 12:20 18:36 05:30 WBC 4.2 RBC 2.84 L Hgb 8.5 L Hct 26.8 L MCV 94.3 MCH 29.9 MCHC 31.7 L RDW 14.9 Plt Count 139 MPV 8.4 Absolute Neuts (auto) 2.2 Neutrophils % 53.2 Lymphocytes % 30.6 Monocytes % 10.4 H Eosinophils % 4.4 Basophils % 1.4 Nucleated RBC % 0 Sodium Potassium Chloride Carbon Dioxide Anion Gap BUN Creatinine Creat Clearance w eGFR POC Glucometer [phone] Random Glucose Calcium Phosphorus Magnesium Total Bilirubin AST ALT Alkaline Phosphatase Total Protein Albumin Chromogranin A 21 H 08/10/18 05:30 WBC RBC Hgb Hct MCV MCH MCHC RDW Plt Count MPV Absolute Neuts (auto) Neutrophils % Lymphocytes % Monocytes % Eosinophils % Basophils % Nucleated RBC % Sodium 145 Potassium 3.1 L Chloride 107 Carbon Dioxide 30 Anion Gap 8 BUN 11 Creatinine 4.6 H Creat Clearance w eGFR 13.59 POC Glucometer Random Glucose 81 Calcium 7.7 L Phosphorus 2.5 Magnesium 1.9 Total Bilirubin 0.4 AST 4 L ALT < 6 L Alkaline Phosphatase 64 Total Protein 5.0 L Albumin 2.3 L Chromogranin A Constitutional: Yes: No Distress, Calm Eyes: Yes: Conjunctiva Clear Neck: Yes: Supple Cardiovascular: Yes: Regular Rate and Rhythm Gastrointestinal: Yes: Normal Bowel Sounds, Soft, not tender Edema: yes- hands Integumentary: Yes: Other (history of heel ulcers--- follows at wound care.) Neurological: Yes: Alert Assessment/Plan noted pathology results- possible inflammatory bowel disease continue with local wound care on iv meropenum cdiff pcr negative on antibiotics Problem List - Problems (1) Acute diarrhea Code(s): R19.7 - DIARRHEA, UNSPECIFIED (2) Bilateral pressure ulcer of feet Code(s): L89.899 - PRESSURE ULCER OF OTHER SITE, UNSPECIFIED STAGE (3) C. difficile colitis Code(s): A04.72 - ENTEROCOLITIS D/T CLOSTRIDIUM DIFFICILE, NOT SPCF RECUR (4) Chronic diarrhea Code(s): K52.9 - NONINFECTIVE GASTROENTERITIS AND COLITIS, UNSPECIFIED (5) Diabetic foot ulcer Code(s): E11.621 - TYPE 2 DIABETES MELLITUS WITH FOOT ULCER; L97.509 - NON- PRESSURE CHRONIC ULCER OTH PRT UNSP FOOT W UNSP SEVERITY Qualifiers: Diabetic foot ulcer location: heel Diabetes mellitus type: other specified (including JADON) Laterality: unspecified laterality Non-pressure ulcer stage : unspecified non-pressure ulcer stage Qualified Code(s): E13.621 - Other specified diabetes mellitus with foot ulcer; L97.409 - Non-pressure chronic ulcer of unspecified heel and midfoot with unspecified severity (6) ESRD (end stage renal disease) Code(s): N18.6 - END STAGE RENAL DISEASE (7) Generalized weakness Code(s): R53.1 - WEAKNESS (8) Sacral decubitus ulcer Code(s): L89.159 - PRESSURE ULCER OF SACRAL REGION, UNSPECIFIED STAGE
--- NOTE | 2018-08-10 11:25 | PN ---
Teaching Attending Note Name of Resident: Serafin Bernal ATTENDING PHYSICIAN STATEMENT I saw and evaluated the patient. I reviewed the resident's note and discussed the case with the resident. I agree with the resident's findings and plan as documented. SUBJECTIVE: Pt seen and examined in the ICU. Still with diarrhea. Pathology back showing areas of focal colitis as well as acute cryptitis and crypt abscesses in the rectum. OBJECTIVE: Vital Signs Period Temp Pulse Resp BP Sys/Gutierrez Pulse Ox Last 24 Hr 97 F-99.2 F 77-100 117-153/70-88 98 Intake & Output 08/07/18 08/08/18 08/09/18 08/10/18 23:59 23:59 23:59 23:59 Intake Total 1175 755 300 Output Total 200 300 Balance 975 455 300 Weight 88.536 kg 84.6 kg 83.4 kg 84.3 kg Gen: NAD at rest Heart: RRR Lung: decreased breath sounds at the bases Abd: soft, nontender Ext: no edema CBC, BMP 08/10/18 05:30 08/10/18 05:30 Active Medications Calcium Acetate (Phoslo -) 1,334 mg PO TIDCM [facility] Last Admin: 08/10/18 10:01 Dose: Not Given Cholestyramine Resin (Questran Packet -) 4 gm PO BID [facility] Last Admin: 08/10/18 09:03 Dose: 4 gm Collagenase (Santyl -) 1 applic TP DAILY [facility] Last Admin: 08/10/18 10:02 Dose: 1 applic Diphenhydramine HCl (Benadryl -) 25 mg PO Q6H PRN PRN Reason: FOR ITCHING Last Admin: 08/06/18 10:10 Dose: 25 mg Doxycycline Hyclate (Vibramycin -) 100 mg PO BID@1000,1800 [facility] Last Admin: 08/10/18 09:13 Dose: 100 mg Duloxetine HCl (Cymbalta -) 20 mg PO DAILY [facility] Last Admin: 08/10/18 09:13 Dose: 20 mg Heparin Sodium (Porcine) (Heparin -) 5,000 unit SQ BID [facility] Last Admin: 08/10/18 10:02 Dose: Not Given Meropenem 500 mg/ Dextrose 100 mls @ 200 mls/hr IVPB DAILY [facility] Last Admin: 08/10/18 09:04 Dose: 200 mls/hr Lactobacillus Acidophilus (Bacid -) 1 tab PO DAILY [facility] Last Admin: 08/10/18 09:04 Dose: 1 tab ASSESSMENT AND PLAN: Diarrhea Acute Colitis r/o Inflammatory Bowel Disease Hypovolemia improved r/o Sepsis Lactic Acidosis resolved ESRD on HD Drug Rash improved Osteomyelitis Hearing Loss improved - d/w GI pathology results - continue antibiotics per ID - HD per renal - DVT prophylaxis - can monitor on floor
--- NOTE | 2018-08-10 13:36 | PN ---
Progress Note (short form) - Note Progress Note: Biopsies from colon reveal active colitis. endoscopically there was no active colitis and he is recovering from recent C. Diff infection. This could account for the pathology findings and there was no description of chronic changes. Can add asacol HD 800mg PO TID in the interim. Chromogranin A is mildly elevated and awaiting serum gastrin. Unclear if he makes enough urine to performed 24 hour urine collection for 5-HIAA. Can check fasting serum 5-HIAA level. prior to testing may need to make sure there are no confounding dietary or medication factors prior to collection that may cause false elevations. Ultimately may need octrotide scan as an outpatient to localize potential neuroendocrine tumor such as carcinoid. Problem List - Problems (1) C. difficile colitis Code(s): A04.72 - ENTEROCOLITIS D/T CLOSTRIDIUM DIFFICILE, NOT SPCF RECUR
--- NOTE | 2018-08-10 14:26 | PN ---
Progress Note, Physician History of Present Illness: stable no issues still weak still with dirrhoea gi following all results noted - Current Medication List Current Medications: Active Medications Calcium Acetate (Phoslo -) 1,334 mg PO TIDCM [facility] Last Admin: 08/10/18 10:01 Dose: Not Given Cholestyramine Resin (Questran Packet -) 4 gm PO BID [facility] Last Admin: 08/10/18 09:03 Dose: 4 gm Collagenase (Santyl -) 1 applic TP DAILY [facility] Last Admin: 08/10/18 10:02 Dose: 1 applic Diphenhydramine HCl (Benadryl -) 25 mg PO Q6H PRN PRN Reason: FOR ITCHING Last Admin: 08/06/18 10:10 Dose: 25 mg Doxycycline Hyclate (Vibramycin -) 100 mg PO BID@1000,1800 [facility] Last Admin: 08/10/18 09:13 Dose: 100 mg Duloxetine HCl (Cymbalta -) 20 mg PO DAILY [facility] Last Admin: 08/10/18 09:13 Dose: 20 mg Heparin Sodium (Porcine) (Heparin -) 5,000 unit SQ BID [facility] Last Admin: 08/10/18 10:02 Dose: Not Given Meropenem 500 mg/ Dextrose 100 mls @ 200 mls/hr IVPB DAILY [facility] Last Admin: 08/10/18 09:04 Dose: 200 mls/hr Lactobacillus Acidophilus (Bacid -) 1 tab PO DAILY [facility] Last Admin: 08/10/18 09:04 Dose: 1 tab Mesalamine (Asacol Hd -) 800 mg PO TID [facility] - Objective Vital Signs: Vital Signs Temperature 98.6 F 08/10/18 14:00 Pulse Rate 88 08/10/18 14:00 Respiratory Rate 16 08/10/18 14:00 Blood Pressure 158/85 08/10/18 14:00 O2 Sat by Pulse Oximetry (%) 98 08/10/18 09:00 Constitutional: Yes: No Distress, Calm Cardiovascular: Yes: Regular Rate and Rhythm Respiratory: Yes: Regular, CTA Bilaterally Musculoskeletal: Yes: Other Extremities: Yes: Other Neurological: Yes: Alert, Oriented Psychiatric: Yes: Alert, Oriented Labs: CBC, BMP 08/10/18 05:30 08/10/18 05:30 INR, PTT INR 1.01 (0.83-1.09) 07/24/18 08:30 Assessment/Plan Assessment/Plan Problem List - Problems (1) Acute diarrhea Code(s): R19.7 - DIARRHEA, UNSPECIFIED (2) Bilateral pressure ulcer of feet Code(s): L89.899 - PRESSURE ULCER OF OTHER SITE, UNSPECIFIED STAGE (3) C. difficile colitis Code(s): A04.72 - ENTEROCOLITIS D/T CLOSTRIDIUM DIFFICILE, NOT SPCF RECUR (4) Chronic diarrhea Code(s): K52.9 - NONINFECTIVE GASTROENTERITIS AND COLITIS, UNSPECIFIED (5) Diabetic foot ulcer Code(s): E11.621 - TYPE 2 DIABETES MELLITUS WITH FOOT ULCER; L97.509 - NON- PRESSURE CHRONIC ULCER OTH PRT UNSP FOOT W UNSP SEVERITY Qualifiers: Diabetic foot ulcer location: heel Diabetes mellitus type: other specified (including JADON) Laterality: unspecified laterality Non-pressure ulcer stage : unspecified non-pressure ulcer stage Qualified Code(s): E13.621 - Other specified diabetes mellitus with foot ulcer; L97.409 - Non-pressure chronic ulcer of unspecified heel and midfoot with unspecified severity (6) ESRD (end stage renal disease) Code(s): N18.6 - END STAGE RENAL DISEASE (7) Generalized weakness Code(s): R53.1 - WEAKNESS (8) Sacral decubitus ulcer Code(s): L89.159 - PRESSURE ULCER OF SACRAL REGION, UNSPECIFIED STAGE 9 left heel wound 10 osteo of the heel plan continue current abx continue mgmt nutrition monitor dirrhoea rest as per the team
[2018-08-10] MEDS ORDERED: SODIUM CHLORIDE 250 ML IV PRN (14:32)
--- NOTE | 2018-08-10 14:32 | PN ---
Progress Note, Physician History of Present Illness: Pt seen and examined at bedside. He is awake and alert. He complains of diarrhea. - Current Medication List Current Medications: Active Medications Calcium Acetate (Phoslo -) 1,334 mg PO TIDCM [facility] Last Admin: 08/10/18 10:01 Dose: Not Given Cholestyramine Resin (Questran Packet -) 4 gm PO BID [facility] Last Admin: 08/10/18 09:03 Dose: 4 gm Collagenase (Santyl -) 1 applic TP DAILY [facility] Last Admin: 08/10/18 10:02 Dose: 1 applic Diphenhydramine HCl (Benadryl -) 25 mg PO Q6H PRN PRN Reason: FOR ITCHING Last Admin: 08/06/18 10:10 Dose: 25 mg Doxycycline Hyclate (Vibramycin -) 100 mg PO BID@1000,1800 [facility] Last Admin: 08/10/18 09:13 Dose: 100 mg Duloxetine HCl (Cymbalta -) 20 mg PO DAILY [facility] Last Admin: 08/10/18 09:13 Dose: 20 mg Heparin Sodium (Porcine) (Heparin -) 5,000 unit SQ BID [facility] Last Admin: 08/10/18 10:02 Dose: Not Given Meropenem 500 mg/ Dextrose 100 mls @ 200 mls/hr IVPB DAILY [facility] Last Admin: 08/10/18 09:04 Dose: 200 mls/hr Lactobacillus Acidophilus (Bacid -) 1 tab PO DAILY [facility] Last Admin: 08/10/18 09:04 Dose: 1 tab Mesalamine (Asacol Hd -) 800 mg PO TID [facility] - Objective Vital Signs: Vital Signs Temperature 98.6 F 08/10/18 14:00 Pulse Rate 88 08/10/18 14:00 Respiratory Rate 16 08/10/18 14:00 Blood Pressure 158/85 08/10/18 14:00 O2 Sat by Pulse Oximetry (%) 98 08/10/18 09:00 Constitutional: Yes: Calm Eyes: Yes: Conjunctiva Clear HENT: Yes: Atraumatic Neck: Yes: Supple Cardiovascular: Yes: S1, S2 Respiratory: Yes: CTA Bilaterally Gastrointestinal: Yes: Soft Genitourinary: Yes: Incontinence Musculoskeletal: Yes: Muscle Weakness Edema: No Neurological: Yes: Oriented Psychiatric: Yes: Oriented Labs: CBC, BMP 08/10/18 05:30 08/10/18 05:30 INR, PTT INR 1.01 (0.83-1.09) 07/24/18 08:30 Problem List - Problems (1) ESRD (end stage renal disease) Code(s): N18.6 - END STAGE RENAL DISEASE Assessment/Plan Current Medications Generic Name Dose Route Start Last Admin Trade Name Freq PRN Reason Stop Dose Admin Calcium Acetate 1,334 mg 08/05/18 08:00 08/10/18 10:01 Phoslo - PO Not Given TIDCM [facility] Cholestyramine Resin 4 gm 08/09/18 22:00 08/10/18 09:03 Questran Packet - PO 4 gm BID IRVIN Administration Collagenase 1 applic 08/05/18 10:00 08/10/18 10:02 Santyl - TP 1 applic DAILY [facility] Administration Diphenhydramine HCl 25 mg 08/06/18 07:55 08/06/18 10:10 Benadryl - PO 25 mg Q6H PRN Administration FOR ITCHING Doxycycline Hyclate 100 mg 08/08/18 18:00 08/10/18 09:13 Vibramycin - PO 100 mg BID@1000,1800 [facility]IN Administration Duloxetine HCl 20 mg 08/05/18 10:00 08/10/18 09:13 Cymbalta - PO 20 mg DAILY [facility] Administration Heparin Sodium (Porcine) 5,000 unit 08/04/18 22:00 08/10/18 10:02 Heparin - SQ Not Given BID IRVIN Meropenem 500 mg/ Dextrose 100 mls @ 200 mls/hr 08/05/18 10:00 08/10/18 09:04 IVPB 200 mls/hr DAILY [facility] Administration Lactobacillus Acidophilus 1 tab 08/05/18 10:00 08/10/18 09:04 Bacid - PO 1 tab DAILY [facility] Administration Mesalamine 800 mg 08/10/18 14:00 Asacol Hd - PO TID [facility] Impression 1. ESRD 2. anemia 3. hypokalemia 4. Hep B 5. diarrhea 6. depression 7. non-compliance with HD 8. acidosis - metabolic 9. hypocalcemia 10. hearing loss 11. sepsis Plan - pt dialyzed yesterday - HD in am - GI input appreciated, pt started on mesalamine - monitor bp - wound care to leg - GI follow up for Hep B as tenofivir is on hold - will follow
[2018-08-10] MEDS: MESALAMINE 800 MG TABLET.DR PO SCH ×2 (16:41→21:36)
[2018-08-11 06:54] LABS: EOS % 4.9 % (0-4.5); HEMATOCRIT 30.1 % (35.4-49); HEMOGLOBIN 9.4 GM/dL (11.7-16.9); LYMPH % 33.2 % (8-40); MCH 29.8 pg (25.7-33.7); MCHC 31.4 g/dl (32.0-35.9); MEAN CELL VOLUME 95.1 fl (80-96); MEAN PLT VOLUME 8.9 fl (7.5-11.1); MONO % 9.1 % (3.8-10.2); NEUT % 51.8 % (42.8-82.8); PLATELET COUNT 158 K/MM3 (134-434); RBC 3.16 M/mm3 (4.00-5.60); RDW 14.6 % (11.9-15.9); WHITE BLOOD COUNT 5.8 K/mm3 (4.0-10.0)
[2018-08-11] MEDS: BANATROL PLUS POWDER PACKET PO SCH ×3 (07:09→22:07)
[2018-08-11] MEDS: MESALAMINE 800 MG TABLET.DR PO SCH ×3 (07:09→22:05)
[2018-08-11 07:12] LABS: ALBUMIN 2.5 g/dl (3.4-5.0); ALK PHOS 73 U/L (45-117); ANION GAP 8 MMOL/L (8-16); BILIRUBIN,TOTAL 0.4 mg/dL (0.2-1); BLOOD UREA NITROGEN 11 mg/dL (7-18); CALCIUM 7.9 mg/dL (8.5-10.1); CHLORIDE 106 mmol/L (98-107); CO2 28 mmol/L (21-32); CREATININE 5.8 mg/dL (0.55-1.3); GLUCOSE,RANDOM 66 mg/dL (74-106); MAGNESIUM 2.1 mg/dL (1.8-2.4); PHOSPHOROUS 3.2 mg/dL (2.5-4.9); POTASSIUM 3.5 mmol/L (3.5-5.1); SGOT/AST 6 U/L (15-37); SGPT/ALT 6 U/L (13-61); SODIUM 143 mmol/L (136-145); TOT PROT 5.5 g/dl (6.4-8.2)
[2018-08-11] MEDS ORDERED: EPOETIN ALFA 3,000 UNIT/1 ML ML IVPUSH ONE (09:30)
[2018-08-11] MEDS: COLLAGENASE CLOSTRIDIUM HIST. 30 GRAMS TUBE TP SCH (10:00)
--- NOTE | 2018-08-11 10:59 | PN ---
Progress Note, Physician History of Present Illness: Pt seen and examined at bedside. He is awake and alert. He denies shortness of breath. - Current Medication List Current Medications: Active Medications Calcium Acetate (Phoslo -) 1,334 mg PO TIDCM [facility] Last Admin: 08/10/18 17:21 Dose: Not Given Cholestyramine Resin (Questran Packet -) 4 gm PO BID [facility] Last Admin: 08/10/18 21:36 Dose: 4 gm Collagenase (Santyl -) 1 applic TP DAILY [facility] Diphenhydramine HCl (Benadryl -) 25 mg PO Q6H PRN PRN Reason: FOR ITCHING Doxycycline Hyclate (Vibramycin -) 100 mg PO BID@1000,1800 [facility] Last Admin: 08/10/18 17:21 Dose: 100 mg Duloxetine HCl (Cymbalta -) 20 mg PO DAILY [facility] Heparin Sodium (Porcine) (Heparin -) 5,000 unit SQ BID [facility] Last Admin: 08/10/18 21:37 Dose: Not Given Sodium Chloride (Normal Saline -) 250 mls @ 3,000 mls/hr IV PRN PRN PRN Reason: Hypotension during Dialysis Stop: 08/11/18 14:33 Meropenem 500 mg/ Dextrose 100 mls @ 200 mls/hr IVPB DAILY [facility] Lactobacillus Acidophilus (Bacid -) 1 tab PO DAILY [facility] Mesalamine (Asacol Hd -) 800 mg PO TID [facility] Last Admin: 08/11/18 07:09 Dose: Not Given - Objective Vital Signs: Vital Signs Temperature 98.8 F 08/11/18 09:55 Pulse Rate 93 H 08/11/18 10:00 Respiratory Rate 18 08/11/18 10:00 Blood Pressure 134/84 08/11/18 10:00 O2 Sat by Pulse Oximetry (%) 98 08/10/18 21:00 Constitutional: Yes: Calm Eyes: Yes: Conjunctiva Clear HENT: Yes: Atraumatic Cardiovascular: Yes: S1, S2 Respiratory: Yes: CTA Bilaterally Gastrointestinal: Yes: Soft Genitourinary: Yes: Incontinence Musculoskeletal: Yes: Muscle Weakness Edema: LLE: Trace, RLE: Trace Neurological: Yes: Oriented Psychiatric: Yes: Oriented Labs: CBC, BMP 08/11/18 06:00 08/11/18 06:00 INR, PTT INR 1.01 (0.83-1.09) 07/24/18 08:30 Problem List - Problems (1) ESRD (end stage renal disease) Code(s): N18.6 - END STAGE RENAL DISEASE Assessment/Plan Current Medications Generic Name Dose Route Start Last Admin Trade Name Freq PRN Reason Stop Dose Admin Calcium Acetate 1,334 mg 08/10/18 17:30 08/10/18 17:21 Phoslo - PO Not Given TIDCM [facility] Cholestyramine Resin 4 gm 08/10/18 22:00 08/10/18 21:36 Questran Packet - PO 4 gm BID [facility] Administration Collagenase 1 applic 08/11/18 10:00 Santyl - TP DAILY [facility] Diphenhydramine HCl 25 mg 08/10/18 17:16 Benadryl - PO Q6H PRN FOR ITCHING Doxycycline Hyclate 100 mg 08/10/18 18:00 08/10/18 17:21 Vibramycin - PO 100 mg BID@1000,1800 [facility] Administration Duloxetine HCl 20 mg 08/11/18 10:00 Cymbalta - PO DAILY [facility] Heparin Sodium (Porcine) 5,000 unit 08/10/18 22:00 08/10/18 21:37 Heparin - SQ Not Given BID [facility] Sodium Chloride 250 mls @ 3,000 mls/hr 08/10/18 14:32 Normal Saline - IV 08/11/18 14:33 PRN PRN Hypotension during Dialysis Meropenem 500 mg/ Dextrose 100 mls @ 200 mls/hr 08/11/18 10:00 IVPB DAILY [facility] Lactobacillus Acidophilus 1 tab 08/11/18 10:00 Bacid - PO DAILY [facility] Mesalamine 800 mg 08/10/18 14:00 08/11/18 07:09 Asacol Hd - PO Not Given TID [facility] Impression 1. ESRD 2. anemia 3. hypokalemia 4. Hep B 5. diarrhea 6. depression 7. non-compliance with HD 8. acidosis - metabolic 9. hypocalcemia 10. hearing loss 11. sepsis Plan - HD today - next HD on Tuesday - GI follow up - monitor diarrhea - monitor lytes - monitor bp - wound care to leg - GI follow up for Hep B as tenofivir is on hold - will follow
--- NOTE | 2018-08-11 11:08 | PN ---
Progress Note (short form) - Note Progress Note: Serum gastrin level mildly elevated, however, not diagnostic of gastrinoma. Secretin stimulation test cannot be performed here. Awaiting plasma 5HIAA. Outpatient referral for octrotide scan. Problem List - Problems (1) C. difficile colitis Code(s): A04.72 - ENTEROCOLITIS D/T CLOSTRIDIUM DIFFICILE, NOT SPCF RECUR
--- NOTE | 2018-08-11 11:09 | PN ---
Progress Note (short form) - Note Progress Note: pt seen/ examined chart reviewed all f/u noted had diarrhea x 2 last night per nursing staff but none today mood stable but appears depressed denies pain currently being dialized Vital Signs Temp 98.8 F 08/11/18 09:55 Pulse 93 H 08/11/18 10:00 Resp 18 08/11/18 10:00 BP 134/84 08/11/18 10:00 Pulse Ox 98 08/10/18 21:00 Intake & Output 08/10/18 08/10/18 08/11/18 11:59 23:59 11:59 Intake Total 840 50 Balance 840 50 Weight 185 lb 13.595 oz Intake: Oral 840 50 Other: Voiding Method Incontinent Incontinent # Unmeasured Voids Void 1 1 1 Bowel Movement Yes Yes Yes # Bowel Movements 1 1 Weight Measurement Method Built in [facility] Active Medications Calcium Acetate (Phoslo -) 1,334 mg PO TIDCM [facility] Last Admin: 08/10/18 17:21 Dose: Not Given Cholestyramine Resin (Questran Packet -) 4 gm PO BID [facility] Last Admin: 08/10/18 21:36 Dose: 4 gm Collagenase (Santyl -) 1 applic TP DAILY [facility] Diphenhydramine HCl (Benadryl -) 25 mg PO Q6H PRN PRN Reason: FOR ITCHING Doxycycline Hyclate (Vibramycin -) 100 mg PO BID@1000,1800 [facility] Last Admin: 08/10/18 17:21 Dose: 100 mg Duloxetine HCl (Cymbalta -) 20 mg PO DAILY [facility] Heparin Sodium (Porcine) (Heparin -) 5,000 unit SQ BID [facility] Last Admin: 08/10/18 21:37 Dose: Not Given Sodium Chloride (Normal Saline -) 250 mls @ 3,000 mls/hr IV PRN PRN PRN Reason: Hypotension during Dialysis Stop: 08/11/18 14:33 Meropenem 500 mg/ Dextrose 100 mls @ 200 mls/hr IVPB DAILY [facility] Lactobacillus Acidophilus (Bacid -) 1 tab PO DAILY [facility] Mesalamine (Asacol Hd -) 800 mg PO TID [facility] Last Admin: 08/11/18 07:09 Dose: Not Given CBC, BMP 08/11/18 06:00 08/11/18 06:00 Physical . Constitutional: Yes: No Distress,calm/ comfortable. Eyes: Yes: Conjunctiva Clear Neck: Yes: Supple Cardiovascular: Yes: Regular Rate and Rhythm Gastrointestinal: Yes: Normal Bowel Sounds, Soft, not tender Integumentary: Yes: Other (history of heel ulcers--- follows at wound care.) Neurological: Yes: Alert Assessment/Plan clinically stable chronic issues gi f/u noted asacol added noted pathology results- possible inflammatory bowel disease continue with local wound care on iv meropenum cdiff pcr negative i/d to follow will discuss advance diet to full liquid Problem List - Problems (1) Acute diarrhea Code(s): R19.7 - DIARRHEA, UNSPECIFIED (2) Bilateral pressure ulcer of feet Code(s): L89.899 - PRESSURE ULCER OF OTHER SITE, UNSPECIFIED STAGE (3) ESRD (end stage renal disease) Code(s): N18.6 - END STAGE RENAL DISEASE
[2018-08-11] MEDS: CALCIUM ACETATE 667 MG CAPSULE (FP) PO SCH ×4 (12:29→17:49)
[2018-08-11] MEDS ORDERED: PT OWN MED DRAWER 7, Y5N ONE ×3 (12:34→21:55)
[2018-08-11] MEDS: MEROPENEM 500 MG in DEXTROSE 5%-WATER 100 ML IVPB SCH (12:37)
[2018-08-11] MEDS: LACTOBACILLUS ACIDOPHILUS 1 TABLET PO SCH (12:37)
[2018-08-11] MEDS: DULoxetine HCL 20 MG CAPSULE.DR (FP) PO SCH (12:39)
[2018-08-11] MEDS: HEPARIN NA (PORCINE) 5,000 UNITS/ML 1ML VIAL SQ SCH ×2 (12:39→22:08)
[2018-08-11] MEDS: CHOLESTYRAMINE/SUCROSE 4 GM PACKET PO SCH (12:40)
[2018-08-11] MEDS: DOXYCYCLINE HYCLATE 100 MG CAPSULE PO SCH ×2 (12:41→17:48)
--- NOTE | 2018-08-11 14:16 | PN ---
Progress Note, Physician History of Present Illness: patent stable still with dirrhoea - Current Medication List Current Medications: Active Medications Calcium Acetate (Phoslo -) 1,334 mg PO TIDCM [facility] Last Admin: 08/11/18 12:41 Dose: 1,334 mg Cholestyramine Resin (Questran Packet -) 4 gm PO BID [facility] Last Admin: 08/11/18 12:40 Dose: 4 gm Collagenase (Santyl -) 1 applic TP DAILY [facility] Diphenhydramine HCl (Benadryl -) 25 mg PO Q6H PRN PRN Reason: FOR ITCHING Doxycycline Hyclate (Vibramycin -) 100 mg PO BID@1000,1800 [facility] Last Admin: 08/11/18 12:41 Dose: 100 mg Duloxetine HCl (Cymbalta -) 20 mg PO DAILY [facility] Last Admin: 08/11/18 12:39 Dose: 20 mg Heparin Sodium (Porcine) (Heparin -) 5,000 unit SQ BID [facility] Last Admin: 08/11/18 12:39 Dose: Not Given Sodium Chloride (Normal Saline -) 250 mls @ 3,000 mls/hr IV PRN PRN PRN Reason: Hypotension during Dialysis Stop: 08/11/18 14:33 Meropenem 500 mg/ Dextrose 100 mls @ 200 mls/hr IVPB DAILY [facility] Last Admin: 08/11/18 12:37 Dose: 200 mls/hr Lactobacillus Acidophilus (Bacid -) 1 tab PO DAILY [facility] Last Admin: 08/11/18 12:37 Dose: 1 tab Mesalamine (Asacol Hd -) 800 mg PO TID [facility] Last Admin: 08/11/18 07:09 Dose: Not Given - Objective Vital Signs: Vital Signs Temperature 98.8 F 08/11/18 09:55 Pulse Rate 90 08/11/18 12:05 Respiratory Rate 18 08/11/18 12:05 Blood Pressure 108/61 08/11/18 12:05 O2 Sat by Pulse Oximetry (%) 98 08/10/18 21:00 Constitutional: Yes: No Distress, Calm Eyes: Yes: Conjunctiva Clear Cardiovascular: Yes: Regular Rate and Rhythm Respiratory: Yes: Regular, CTA Bilaterally Gastrointestinal: Yes: Normal Bowel Sounds, Soft Musculoskeletal: Yes: WNL Extremities: Yes: Other Neurological: Yes: Alert, Oriented Psychiatric: Yes: Alert, Oriented Labs: CBC, BMP 08/11/18 06:00 08/11/18 06:00 INR, PTT INR 1.01 (0.83-1.09) 07/24/18 08:30 Assessment/Plan Problem List - Problems (1) Acute diarrhea Code(s): R19.7 - DIARRHEA, UNSPECIFIED (2) Bilateral pressure ulcer of feet Code(s): L89.899 - PRESSURE ULCER OF OTHER SITE, UNSPECIFIED STAGE (3) C. difficile colitis Code(s): A04.72 - ENTEROCOLITIS D/T CLOSTRIDIUM DIFFICILE, NOT SPCF RECUR (4) Chronic diarrhea Code(s): K52.9 - NONINFECTIVE GASTROENTERITIS AND COLITIS, UNSPECIFIED (5) Diabetic foot ulcer Code(s): E11.621 - TYPE 2 DIABETES MELLITUS WITH FOOT ULCER; L97.509 - NON- PRESSURE CHRONIC ULCER OTH PRT UNSP FOOT W UNSP SEVERITY Qualifiers: Diabetic foot ulcer location: heel Diabetes mellitus type: other specified (including JADON) Laterality: unspecified laterality Non-pressure ulcer stage : unspecified non-pressure ulcer stage Qualified Code(s): E13.621 - Other specified diabetes mellitus with foot ulcer; L97.409 - Non-pressure chronic ulcer of unspecified heel and midfoot with unspecified severity (6) ESRD (end stage renal disease) Code(s): N18.6 - END STAGE RENAL DISEASE (7) Generalized weakness Code(s): R53.1 - WEAKNESS (8) Sacral decubitus ulcer Code(s): L89.159 - PRESSURE ULCER OF SACRAL REGION, UNSPECIFIED STAGE 9 left heel wound plan continue abx rest continue as per gi nutrition rest as per the team wound care
--- NOTE | 2018-08-11 16:29 | PN ---
GI Progress Note Subjective: See note from earlier today as well \Patient states that he is surffering with his diarrhea Per nursing, he was changed twice today for 2 semiformed bowel movements No rectal bleeding - Objective Vital Signs: Vital Signs Temperature 97.5 F L 08/11/18 10:00 Pulse Rate 90 08/11/18 12:05 Respiratory Rate 18 08/11/18 12:05 Blood Pressure 108/61 08/11/18 12:05 O2 Sat by Pulse Oximetry (%) 98 08/11/18 09:00 Constitutional: Calm Eyes: No: Sclera Icterus Cardiovascular: Yes: Regular Rate and Rhythm Respiratory: Yes: Diminished Gastrointestinal Inspection: No: Distention ...Auscultate: Yes: Normoactive Bowel Sounds ...Palpate: No: Tenderness ...Percussion: No: Tympanitic Neurological: Yes: Alert Labs: CBC, BMP 08/11/18 06:00 08/11/18 06:00 INR, PTT INR 1.01 (0.83-1.09) 07/24/18 08:30 Hepatic Panel Total Bilirubin 0.4 mg/dL (0.2-1) 08/11/18 06:00 AST 6 U/L (15-37) L 08/11/18 06:00 ALT 6 U/L (13-61) L 08/11/18 06:00 Alkaline Phosphatase 73 U/L (45-117) 08/11/18 06:00 Albumin 2.5 g/dl (3.4-5.0) L 08/11/18 06:00 Problem List - Problems (1) Diarrhea Assessment/Plan: Still with diarrhea No significant pseudomembranes noted on colonoscopy, nor was there significant colitis noted in general, despite biopsies revealing acute colits. Placed on Asacol HD 800mg PO TID Serum 5HIAA pending Dosed Imodium 2mg x 1 tonight Serum gastrin level mildly elevated but not diagnostic of gastrinoma. Outpatient octrotide exam Lax spincter tone. consider neurology evaluation. Code(s): R19.7 - DIARRHEA, UNSPECIFIED
[2018-08-11] MEDS ORDERED: LOPERAMIDE HCL 2 MG CAPSULE PO ONE (16:45)
[2018-08-12] MEDS: MESALAMINE 800 MG TABLET.DR PO SCH ×3 (06:51→21:12)
[2018-08-12] MEDS: BANATROL PLUS POWDER PACKET PO SCH ×3 (06:51→21:12)
[2018-08-12] MEDS: CALCIUM ACETATE 667 MG CAPSULE (FP) PO SCH ×3 (08:57→18:01)
[2018-08-12] MEDS ORDERED: PT OWN MED DRAWER 7, Y5N ONE ×3 (09:59→20:55)
[2018-08-12] MEDS: LACTOBACILLUS ACIDOPHILUS 1 TABLET PO SCH (10:00)
[2018-08-12] MEDS: DULoxetine HCL 20 MG CAPSULE.DR (FP) PO SCH (10:00)
[2018-08-12] MEDS: DOXYCYCLINE HYCLATE 100 MG CAPSULE PO SCH ×2 (10:01→18:01)
[2018-08-12] MEDS: HEPARIN NA (PORCINE) 5,000 UNITS/ML 1ML VIAL SQ SCH ×2 (10:01→21:12)
[2018-08-12] MEDS: MEROPENEM 500 MG in DEXTROSE 5%-WATER 100 ML IVPB SCH (10:02)
[2018-08-12] MEDS: diphenhydrAMINE HCL 25 MG CAPSULE (FP) PO PRN (10:07)
--- NOTE | 2018-08-12 12:40 | PN ---
Progress Note (short form) - Note Progress Note: pt seen/ examined . looks / feels better semiformed stool now denies pain all f/u noted Vital Signs Temp 98.1 F 08/11/18 19:13 Pulse 102 H 08/11/18 19:13 Resp 21 H 08/11/18 21:00 BP 154/82 08/11/18 19:13 Pulse Ox 98 08/11/18 21:00 Intake & Output 08/11/18 08/12/18 08/12/18 23:59 11:59 23:59 Intake Total 100 0 Balance 100 0 Intake: IVPB 100 0 Other: Voiding Method Diaper # Unmeasured Voids Void 0 Bowel Movement Yes Yes # Bowel Movements 1 1 Active Medications Calcium Acetate (Phoslo -) 1,334 mg PO TIDCM [facility] Last Admin: 08/12/18 08:57 Dose: Not Given Collagenase (Santyl -) 1 applic TP DAILY [facility] Last Admin: 08/11/18 10:00 Dose: 1 applic Diphenhydramine HCl (Benadryl -) 25 mg PO Q6H PRN PRN Reason: FOR ITCHING Last Admin: 08/12/18 10:07 Dose: 25 mg Doxycycline Hyclate (Vibramycin -) 100 mg PO BID@1000,1800 [facility] Last Admin: 08/12/18 10:01 Dose: 100 mg Duloxetine HCl (Cymbalta -) 20 mg PO DAILY [facility] Last Admin: 08/12/18 10:00 Dose: 20 mg Heparin Sodium (Porcine) (Heparin -) 5,000 unit SQ BID [facility] Last Admin: 08/12/18 10:01 Dose: Not Given Meropenem 500 mg/ Dextrose 100 mls @ 200 mls/hr IVPB DAILY [facility] Last Admin: 08/12/18 10:02 Dose: 200 mls/hr Lactobacillus Acidophilus (Bacid -) 1 tab PO DAILY [facility] Last Admin: 08/12/18 10:00 Dose: 1 tab Mesalamine (Asacol Hd -) 800 mg PO TID [facility] Last Admin: 08/12/18 06:51 Dose: 800 mg CBC, BMP 08/11/18 06:00 08/11/18 06:00 Physical . Constitutional: Yes: No Distress,calm/ comfortable. Eyes: Yes: Conjunctiva Clear Neck: Yes: Supple. no jvd. Cardiovascular: Yes: Regular Rate and Rhythm Gastrointestinal: Yes: Normal Bowel Sounds, Soft, not tender. Integumentary: Yes: Other (history of heel ulcers--- follows at wound care.) Neurological: Yes: Alert Assessment/Plan clinically looks better chronic issues gi f/u noted asacol added noted pathology results- possible inflammatory bowel disease continue with local wound care on iv meropenum cdiff pcr negative diet being advanced f/u labs will follow Problem List - Problems (1) Acute diarrhea Code(s): R19.7 - DIARRHEA, UNSPECIFIED (2) Bilateral pressure ulcer of feet Code(s): L89.899 - PRESSURE ULCER OF OTHER SITE, UNSPECIFIED STAGE (3) ESRD (end stage renal disease) Code(s): N18.6 - END STAGE RENAL DISEASE
--- NOTE | 2018-08-12 14:36 | PN ---
Progress Note, Physician History of Present Illness: dirrhoea improving semisolid stool - Current Medication List Current Medications: Active Medications Calcium Acetate (Phoslo -) 1,334 mg PO TIDCM [facility] Last Admin: 08/12/18 13:53 Dose: Not Given Collagenase (Santyl -) 1 applic TP DAILY [facility] Last Admin: 08/11/18 10:00 Dose: 1 applic Diphenhydramine HCl (Benadryl -) 25 mg PO Q6H PRN PRN Reason: FOR ITCHING Last Admin: 08/12/18 10:07 Dose: 25 mg Doxycycline Hyclate (Vibramycin -) 100 mg PO BID@1000,1800 [facility] Last Admin: 08/12/18 10:01 Dose: 100 mg Duloxetine HCl (Cymbalta -) 20 mg PO DAILY [facility] Last Admin: 08/12/18 10:00 Dose: 20 mg Heparin Sodium (Porcine) (Heparin -) 5,000 unit SQ BID [facility] Last Admin: 08/12/18 10:01 Dose: Not Given Meropenem 500 mg/ Dextrose 100 mls @ 200 mls/hr IVPB DAILY [facility] Last Admin: 08/12/18 10:02 Dose: 200 mls/hr Lactobacillus Acidophilus (Bacid -) 1 tab PO DAILY [facility] Last Admin: 08/12/18 10:00 Dose: 1 tab Mesalamine (Asacol Hd -) 800 mg PO TID [facility] Last Admin: 08/12/18 14:16 Dose: 800 mg - Objective Vital Signs: Vital Signs Temperature 98.1 F 08/11/18 19:13 Pulse Rate 102 H 08/11/18 19:13 Respiratory Rate 21 H 08/11/18 21:00 Blood Pressure 154/82 08/11/18 19:13 O2 Sat by Pulse Oximetry (%) 98 08/11/18 21:00 Constitutional: Yes: No Distress, Calm Cardiovascular: Yes: Regular Rate and Rhythm Respiratory: Yes: Regular, CTA Bilaterally Gastrointestinal: Yes: Normal Bowel Sounds, Soft Musculoskeletal: Yes: WNL Extremities: Yes: Other Neurological: Yes: Alert, Oriented Psychiatric: Yes: Alert, Oriented Labs: CBC, BMP 08/11/18 06:00 08/11/18 06:00 INR, PTT INR 1.01 (0.83-1.09) 07/24/18 08:30 Assessment/Plan Assessment/Plan Problem List - Problems (1) Acute diarrhea Code(s): R19.7 - DIARRHEA, UNSPECIFIED (2) Bilateral pressure ulcer of feet Code(s): L89.899 - PRESSURE ULCER OF OTHER SITE, UNSPECIFIED STAGE (3) C. difficile colitis Code(s): A04.72 - ENTEROCOLITIS D/T CLOSTRIDIUM DIFFICILE, NOT SPCF RECUR (4) Chronic diarrhea Code(s): K52.9 - NONINFECTIVE GASTROENTERITIS AND COLITIS, UNSPECIFIED (5) Diabetic foot ulcer Code(s): E11.621 - TYPE 2 DIABETES MELLITUS WITH FOOT ULCER; L97.509 - NON- PRESSURE CHRONIC ULCER OTH PRT UNSP FOOT W UNSP SEVERITY Qualifiers: Diabetic foot ulcer location: heel Diabetes mellitus type: other specified (including JADON) Laterality: unspecified laterality Non-pressure ulcer stage : unspecified non-pressure ulcer stage Qualified Code(s): E13.621 - Other specified diabetes mellitus with foot ulcer; L97.409 - Non-pressure chronic ulcer of unspecified heel and midfoot with unspecified severity (6) ESRD (end stage renal disease) Code(s): N18.6 - END STAGE RENAL DISEASE (7) Generalized weakness Code(s): R53.1 - WEAKNESS (8) Sacral decubitus ulcer Code(s): L89.159 - PRESSURE ULCER OF SACRAL REGION, UNSPECIFIED STAGE 9 left heel wound plan continue abx rest continue current mgmt hydration monitor
[2018-08-12] MEDS: COLLAGENASE CLOSTRIDIUM HIST. 30 GRAMS TUBE TP SCH (18:00)
[2018-08-13] MEDS ORDERED: PT OWN MED DRAWER 7, Y5N ONE ×2 (05:54→09:08)
[2018-08-13] MEDS: BANATROL PLUS POWDER PACKET PO SCH ×3 (05:56→21:40)
[2018-08-13] MEDS: MESALAMINE 800 MG TABLET.DR PO SCH ×3 (06:16→21:24)
[2018-08-13] MEDS: CALCIUM ACETATE 667 MG CAPSULE (FP) PO SCH ×3 (08:09→20:27)
[2018-08-13] MEDS: LACTOBACILLUS ACIDOPHILUS 1 TABLET PO SCH (09:10)
[2018-08-13] MEDS: MEROPENEM 500 MG in DEXTROSE 5%-WATER 100 ML IVPB SCH (09:10)
[2018-08-13] MEDS: DOXYCYCLINE HYCLATE 100 MG CAPSULE PO SCH ×2 (09:11→17:26)
[2018-08-13] MEDS: DULoxetine HCL 20 MG CAPSULE.DR (FP) PO SCH (09:11)
[2018-08-13] MEDS: HEPARIN NA (PORCINE) 5,000 UNITS/ML 1ML VIAL SQ SCH ×2 (09:11→21:40)
[2018-08-13] MEDS: diphenhydrAMINE HCL 25 MG CAPSULE (FP) PO PRN ×2 (09:24→21:24)
--- NOTE | 2018-08-13 13:49 | PN ---
Progress Note, Physician History of Present Illness: continues to be stable no issues still not completely resolved dirrhoea - Current Medication List Current Medications: Active Medications Calcium Acetate (Phoslo -) 1,334 mg PO TIDCM [facility] Last Admin: 08/13/18 11:26 Dose: Not Given Collagenase (Santyl -) 1 applic TP DAILY [facility] Last Admin: 08/12/18 18:00 Dose: 1 applic Diphenhydramine HCl (Benadryl -) 25 mg PO Q6H PRN PRN Reason: FOR ITCHING Last Admin: 08/13/18 09:24 Dose: 25 mg Doxycycline Hyclate (Vibramycin -) 100 mg PO BID@1000,1800 [facility] Last Admin: 08/13/18 09:11 Dose: 100 mg Duloxetine HCl (Cymbalta -) 20 mg PO DAILY [facility] Last Admin: 08/13/18 09:11 Dose: 20 mg Heparin Sodium (Porcine) (Heparin -) 5,000 unit SQ BID [facility] Last Admin: 08/13/18 09:11 Dose: Not Given Meropenem 500 mg/ Dextrose 100 mls @ 200 mls/hr IVPB DAILY [facility] Last Admin: 08/13/18 09:10 Dose: 200 mls/hr Lactobacillus Acidophilus (Bacid -) 1 tab PO DAILY [facility] Last Admin: 08/13/18 09:10 Dose: 1 tab Mesalamine (Asacol Hd -) 800 mg PO TID [facility] Last Admin: 08/13/18 13:35 Dose: 800 mg - Objective Vital Signs: Vital Signs Temperature 98.0 F 08/12/18 22:48 Pulse Rate 93 H 08/12/18 22:48 Respiratory Rate 18 08/12/18 22:48 Blood Pressure 109/62 08/12/18 22:48 O2 Sat by Pulse Oximetry (%) 99 08/12/18 21:00 Constitutional: Yes: No Distress, Calm Cardiovascular: Yes: Regular Rate and Rhythm Respiratory: Yes: Regular, CTA Bilaterally Gastrointestinal: Yes: Normal Bowel Sounds, Soft Musculoskeletal: Yes: Other Extremities: Yes: Other Neurological: Yes: Alert, Oriented Psychiatric: Yes: Alert, Oriented Labs: CBC, BMP 08/11/18 06:00 08/11/18 06:00 INR, PTT INR 1.01 (0.83-1.09) 07/24/18 08:30 Assessment/Plan Assessment/Plan Problem List - Problems (1) Acute diarrhea Code(s): R19.7 - DIARRHEA, UNSPECIFIED (2) Bilateral pressure ulcer of feet Code(s): L89.899 - PRESSURE ULCER OF OTHER SITE, UNSPECIFIED STAGE (3) C. difficile colitis Code(s): A04.72 - ENTEROCOLITIS D/T CLOSTRIDIUM DIFFICILE, NOT SPCF RECUR (4) Chronic diarrhea Code(s): K52.9 - NONINFECTIVE GASTROENTERITIS AND COLITIS, UNSPECIFIED (5) Diabetic foot ulcer Code(s): E11.621 - TYPE 2 DIABETES MELLITUS WITH FOOT ULCER; L97.509 - NON- PRESSURE CHRONIC ULCER OTH PRT UNSP FOOT W UNSP SEVERITY Qualifiers: Diabetic foot ulcer location: heel Diabetes mellitus type: other specified (including JADON) Laterality: unspecified laterality Non-pressure ulcer stage : unspecified non-pressure ulcer stage Qualified Code(s): E13.621 - Other specified diabetes mellitus with foot ulcer; L97.409 - Non-pressure chronic ulcer of unspecified heel and midfoot with unspecified severity (6) ESRD (end stage renal disease) Code(s): N18.6 - END STAGE RENAL DISEASE (7) Generalized weakness Code(s): R53.1 - WEAKNESS (8) Sacral decubitus ulcer Code(s): L89.159 - PRESSURE ULCER OF SACRAL REGION, UNSPECIFIED STAGE 9 left heel wound plan continue abx rest continue current mgmt hydration monitor will decide about abx as he is getting it for osteo
--- NOTE | 2018-08-13 14:12 | PN ---
Progress Note (short form) - Note Progress Note: comfortable mood ok still having diarhea discussed with Dr. Klein-- Dont think current symptoms due to c diff denies pain all f/u noted. Vital Signs Temp 98.0 F 08/12/18 22:48 Pulse 93 H 08/12/18 22:48 Resp 18 08/12/18 22:48 BP 109/62 08/12/18 22:48 Pulse Ox 99 08/12/18 21:00 Intake & Output 08/12/18 08/13/18 08/13/18 23:59 11:59 23:59 Intake Total 485 440 Balance 485 440 Intake: IVPB 100 Oral 385 440 Other: Voiding Method Diaper Diaper # Unmeasured Voids Void 0 0 Bowel Movement Yes Yes # Bowel Movements 3 1 Body Mass Index (BMI) 23.7 Active Medications Calcium Acetate (Phoslo -) 1,334 mg PO TIDCM [facility] Last Admin: 08/13/18 11:26 Dose: Not Given Collagenase (Santyl -) 1 applic TP DAILY [facility] Last Admin: 08/12/18 18:00 Dose: 1 applic Diphenhydramine HCl (Benadryl -) 25 mg PO Q6H PRN PRN Reason: FOR ITCHING Last Admin: 08/13/18 09:24 Dose: 25 mg Doxycycline Hyclate (Vibramycin -) 100 mg PO BID@1000,1800 [facility] Last Admin: 08/13/18 09:11 Dose: 100 mg Duloxetine HCl (Cymbalta -) 20 mg PO DAILY [facility] Last Admin: 08/13/18 09:11 Dose: 20 mg Heparin Sodium (Porcine) (Heparin -) 5,000 unit SQ BID [facility] Last Admin: 08/13/18 09:11 Dose: Not Given Meropenem 500 mg/ Dextrose 100 mls @ 200 mls/hr IVPB DAILY [facility] Last Admin: 08/13/18 09:10 Dose: 200 mls/hr Lactobacillus Acidophilus (Bacid -) 1 tab PO DAILY [facility] Last Admin: 08/13/18 09:10 Dose: 1 tab Mesalamine (Asacol Hd -) 800 mg PO TID [facility] Last Admin: 08/13/18 13:35 Dose: 800 mg CBC, BMP 08/11/18 06:00 08/11/18 06:00 Physical . Constitutional: Yes: No Distress,calm/ comfortable. Eyes: Yes: Conjunctiva Clear Neck: Yes: Supple. no jvd. Cardiovascular: Yes: Regular Rate and Rhythm Gastrointestinal: Yes: Normal Bowel Sounds, Soft, not tender. Integumentary: Yes: Other (history of heel ulcers--- follows at wound care.) Neurological: Yes: Alert/ awake. calm Assessment/Plan clinically looks stable chronic issues on asacol continue with local wound care on iv meropenum cdiff pcr negative f/u labs will follow Problem List - Problems (1) Acute diarrhea Code(s): R19.7 - DIARRHEA, UNSPECIFIED (2) Bilateral pressure ulcer of feet Code(s): L89.899 - PRESSURE ULCER OF OTHER SITE, UNSPECIFIED STAGE (3) ESRD (end stage renal disease) Code(s): N18.6 - END STAGE RENAL DISEASE
[2018-08-13] MEDS: COLLAGENASE CLOSTRIDIUM HIST. 30 GRAMS TUBE TP SCH (17:26)
[2018-08-14] MEDS: MESALAMINE 800 MG TABLET.DR PO SCH ×3 (06:16→21:55)
[2018-08-14] MEDS: BANATROL PLUS POWDER PACKET PO SCH ×3 (06:17→21:58)
[2018-08-14] MEDS: CALCIUM ACETATE 667 MG CAPSULE (FP) PO SCH ×3 (09:20→17:24)
[2018-08-14] MEDS ORDERED: PT OWN MED DRAWER 7, Y5N ONE ×4 (09:22→21:07)
[2018-08-14] MEDS: DULoxetine HCL 20 MG CAPSULE.DR (FP) PO SCH (09:30)
[2018-08-14] MEDS: HEPARIN NA (PORCINE) 5,000 UNITS/ML 1ML VIAL SQ SCH ×2 (09:30→21:59)
[2018-08-14] MEDS: diphenhydrAMINE HCL 25 MG CAPSULE (FP) PO PRN ×2 (09:30→21:56)
[2018-08-14] MEDS: MEROPENEM 500 MG in DEXTROSE 5%-WATER 100 ML IVPB SCH (09:30)
[2018-08-14] MEDS: DOXYCYCLINE HYCLATE 100 MG CAPSULE PO SCH ×2 (09:30→18:33)
[2018-08-14] MEDS: LACTOBACILLUS ACIDOPHILUS 1 TABLET PO SCH (09:30)
[2018-08-14] MEDS ORDERED: EPOETIN ALFA 3,000 UNIT/1 ML ML IVPUSH ONE (09:30)
[2018-08-14 10:43] LABS: HEMATOCRIT 27.8 % (35.4-49); HEMOGLOBIN 9.3 GM/dL (11.7-16.9); MCH 31.1 pg (25.7-33.7); MCHC 33.4 g/dl (32.0-35.9); MEAN PLT VOLUME 9.2 fl (7.5-11.1); PLATELET COUNT 169 K/MM3 (134-434); RBC 2.99 M/mm3 (4.00-5.60); RDW 15.3 % (11.9-15.9); WHITE BLOOD COUNT 6.4 K/mm3 (4.0-10.0)
[2018-08-14 11:12] LABS: ANION GAP 10 MMOL/L (8-16); BLOOD UREA NITROGEN 21 mg/dL (7-18); CALCIUM 7.6 mg/dL (8.5-10.1); CHLORIDE 108 mmol/L (98-107); CO2 24 mmol/L (21-32); GLUCOSE,RANDOM 99 mg/dL (74-106); POTASSIUM 3.5 mmol/L (3.5-5.1); SODIUM 141 mmol/L (136-145)
[2018-08-14 11:59] LABS: CREATININE 7.4 mg/dL (0.55-1.3)
--- NOTE | 2018-08-14 12:02 | PN ---
Progress Note (short form) - Note Progress Note: comfortable being dialized reports diarrhea better tolerating diet afebrile denies pain. Vital Signs Temp 98.4 F 08/14/18 09:45 Pulse 93 H 08/14/18 11:20 Resp 18 08/14/18 11:20 BP 131/83 08/14/18 11:20 Pulse Ox 99 08/13/18 21:00 Intake & Output 08/13/18 08/14/18 08/14/18 23:59 11:59 23:59 Intake Total 1000 150 Balance 1000 150 Intake: IVPB 100 Oral 900 150 Other: Voiding Method Diaper Diaper # Unmeasured Voids Void 0 0 Bowel Movement Yes Yes # Bowel Movements 1 1 Active Medications Calcium Acetate (Phoslo -) 1,334 mg PO TIDCM [facility] Last Admin: 08/14/18 11:37 Dose: Not Given Collagenase (Santyl -) 1 applic TP DAILY [facility] Last Admin: 08/13/18 17:26 Dose: 1 applic Diphenhydramine HCl (Benadryl -) 25 mg PO Q6H PRN PRN Reason: FOR ITCHING Last Admin: 08/14/18 09:30 Dose: 25 mg Doxycycline Hyclate (Vibramycin -) 100 mg PO BID@1000,1800 [facility] Last Admin: 08/14/18 09:30 Dose: 100 mg Duloxetine HCl (Cymbalta -) 20 mg PO DAILY [facility] Last Admin: 08/14/18 09:30 Dose: 20 mg Heparin Sodium (Porcine) (Heparin -) 5,000 unit SQ BID [facility] Last Admin: 08/14/18 09:30 Dose: Not Given Meropenem 500 mg/ Dextrose 100 mls @ 200 mls/hr IVPB DAILY [facility] Last Admin: 08/14/18 09:30 Dose: 200 mls/hr Lactobacillus Acidophilus (Bacid -) 1 tab PO DAILY [facility] Last Admin: 08/14/18 09:30 Dose: 1 tab Mesalamine (Asacol Hd -) 800 mg PO TID [facility] Last Admin: 08/14/18 06:16 Dose: 800 mg CBC, BMP 08/14/18 09:50 08/14/18 09:50 Physical . Constitutional: Yes: No Distress,calm/ comfortable. Eyes: Yes: Conjunctiva Clear Neck: Yes: Supple. no jvd. Cardiovascular: Yes: Regular Rate and Rhythm Gastrointestinal: Yes: Normal Bowel Sounds, Soft, not tender. Integumentary: Yes: Other (heel ulcer-- wound care/ i/d following -- dressing + Neurological: Yes: Alert/ awake. calm Assessment/Plan clinically looks stable and better chronic issues on asacol better continue with local wound care on iv meropenum discussed with i/d-- will follow wound care team to follow continue present care will follow. Problem List - Problems (1) Acute diarrhea Code(s): R19.7 - DIARRHEA, UNSPECIFIED (2) Bilateral pressure ulcer of feet Code(s): L89.899 - PRESSURE ULCER OF OTHER SITE, UNSPECIFIED STAGE (3) ESRD (end stage renal disease) Code(s): N18.6 - END STAGE RENAL DISEASE
--- NOTE | 2018-08-14 13:05 | PN ---
Progress Note, Physician History of Present Illness: continues to be stable no issues - Current Medication List Current Medications: Active Medications Calcium Acetate (Phoslo -) 1,334 mg PO TIDCM [facility] Last Admin: 08/14/18 11:37 Dose: Not Given Collagenase (Santyl -) 1 applic TP DAILY [facility] Last Admin: 08/13/18 17:26 Dose: 1 applic Diphenhydramine HCl (Benadryl -) 25 mg PO Q6H PRN PRN Reason: FOR ITCHING Last Admin: 08/14/18 09:30 Dose: 25 mg Doxycycline Hyclate (Vibramycin -) 100 mg PO BID@1000,1800 [facility] Last Admin: 08/14/18 09:30 Dose: 100 mg Duloxetine HCl (Cymbalta -) 20 mg PO DAILY [facility] Last Admin: 08/14/18 09:30 Dose: 20 mg Heparin Sodium (Porcine) (Heparin -) 5,000 unit SQ BID [facility] Last Admin: 08/14/18 09:30 Dose: Not Given Meropenem 500 mg/ Dextrose 100 mls @ 200 mls/hr IVPB DAILY [facility] Last Admin: 08/14/18 09:30 Dose: 200 mls/hr Lactobacillus Acidophilus (Bacid -) 1 tab PO DAILY [facility] Last Admin: 08/14/18 09:30 Dose: 1 tab Mesalamine (Asacol Hd -) 800 mg PO TID [facility] Last Admin: 08/14/18 06:16 Dose: 800 mg - Objective Vital Signs: Vital Signs Temperature 98.4 F 08/14/18 09:45 Pulse Rate 93 H 08/14/18 11:20 Respiratory Rate 18 08/14/18 11:20 Blood Pressure 131/83 08/14/18 11:20 O2 Sat by Pulse Oximetry (%) 99 08/13/18 21:00 Constitutional: Yes: No Distress, Calm Cardiovascular: Yes: Regular Rate and Rhythm Respiratory: Yes: Regular, CTA Bilaterally Gastrointestinal: Yes: Normal Bowel Sounds, Soft Musculoskeletal: Yes: WNL Extremities: Yes: WNL Neurological: Yes: Alert, Oriented Psychiatric: Yes: Alert, Oriented Labs: CBC, BMP 08/14/18 09:50 08/14/18 09:50 INR, PTT INR 1.01 (0.83-1.09) 07/24/18 08:30 Assessment/Plan Assessment/Plan Problem List - Problems (1) Acute diarrhea Code(s): R19.7 - DIARRHEA, UNSPECIFIED (2) Bilateral pressure ulcer of feet Code(s): L89.899 - PRESSURE ULCER OF OTHER SITE, UNSPECIFIED STAGE (3) C. difficile colitis Code(s): A04.72 - ENTEROCOLITIS D/T CLOSTRIDIUM DIFFICILE, NOT SPCF RECUR (4) Chronic diarrhea Code(s): K52.9 - NONINFECTIVE GASTROENTERITIS AND COLITIS, UNSPECIFIED (5) Diabetic foot ulcer Code(s): E11.621 - TYPE 2 DIABETES MELLITUS WITH FOOT ULCER; L97.509 - NON- PRESSURE CHRONIC ULCER OTH PRT UNSP FOOT W UNSP SEVERITY Qualifiers: Diabetic foot ulcer location: heel Diabetes mellitus type: other specified (including JADON) Laterality: unspecified laterality Non-pressure ulcer stage : unspecified non-pressure ulcer stage Qualified Code(s): E13.621 - Other specified diabetes mellitus with foot ulcer; L97.409 - Non-pressure chronic ulcer of unspecified heel and midfoot with unspecified severity (6) ESRD (end stage renal disease) Code(s): N18.6 - END STAGE RENAL DISEASE (7) Generalized weakness Code(s): R53.1 - WEAKNESS (8) Sacral decubitus ulcer Code(s): L89.159 - PRESSURE ULCER OF SACRAL REGION, UNSPECIFIED STAGE 9 left heel wound plan continue abx rest continue current mgmt hydration monitor will decide about abx as he is getting it for osteo will switch to oral soon
--- NOTE | 2018-08-14 14:05 | PN ---
Progress Note, Physician History of Present Illness: Pt seen and examined. He feels that the diarrhea is improving. - Current Medication List Current Medications: Active Medications Calcium Acetate (Phoslo -) 1,334 mg PO TIDCM [facility] Last Admin: 08/14/18 11:37 Dose: Not Given Collagenase (Santyl -) 1 applic TP DAILY [facility] Last Admin: 08/13/18 17:26 Dose: 1 applic Diphenhydramine HCl (Benadryl -) 25 mg PO Q6H PRN PRN Reason: FOR ITCHING Last Admin: 08/14/18 09:30 Dose: 25 mg Doxycycline Hyclate (Vibramycin -) 100 mg PO BID@1000,1800 [facility] Last Admin: 08/14/18 09:30 Dose: 100 mg Duloxetine HCl (Cymbalta -) 20 mg PO DAILY [facility] Last Admin: 08/14/18 09:30 Dose: 20 mg Heparin Sodium (Porcine) (Heparin -) 5,000 unit SQ BID [facility] Last Admin: 08/14/18 09:30 Dose: Not Given Meropenem 500 mg/ Dextrose 100 mls @ 200 mls/hr IVPB DAILY [facility] Last Admin: 08/14/18 09:30 Dose: 200 mls/hr Lactobacillus Acidophilus (Bacid -) 1 tab PO DAILY [facility] Last Admin: 08/14/18 09:30 Dose: 1 tab Mesalamine (Asacol Hd -) 800 mg PO TID [facility] Last Admin: 08/14/18 06:16 Dose: 800 mg - Objective Vital Signs: Vital Signs Temperature 98.4 F 08/14/18 09:45 Pulse Rate 97 H 08/14/18 12:55 Respiratory Rate 18 08/14/18 12:55 Blood Pressure 161/102 H 08/14/18 12:55 O2 Sat by Pulse Oximetry (%) 99 08/13/18 21:00 Constitutional: Yes: Calm Eyes: Yes: Conjunctiva Clear HENT: Yes: Atraumatic Cardiovascular: Yes: S1, S2 Respiratory: Yes: CTA Bilaterally Gastrointestinal: Yes: Soft Genitourinary: Yes: WNL Musculoskeletal: Yes: WNL Edema: Yes Edema: LLE: Trace, RLE: Trace Psychiatric: Yes: Oriented Labs: CBC, BMP 08/14/18 09:50 08/14/18 09:50 INR, PTT INR 1.01 (0.83-1.09) 11/26/18 08:30 Problem List - Problems (1) ESRD (end stage renal disease) Code(s): N18.6 - END STAGE RENAL DISEASE Assessment/Plan Current Medications Generic Name Dose Route Start Last Admin Trade Name Freq PRN Reason Stop Dose Admin Calcium Acetate 1,334 mg 08/10/18 17:30 08/14/18 11:37 Phoslo - PO Not Given TIDCM [facility] Collagenase 1 applic 08/11/18 10:00 08/13/18 17:26 Santyl - TP 1 applic DAILY [facility] Administration Diphenhydramine HCl 25 mg 08/10/18 17:16 08/14/18 09:30 Benadryl - PO 25 mg Q6H PRN Administration FOR ITCHING Doxycycline Hyclate 100 mg 08/10/18 18:00 08/14/18 09:30 Vibramycin - PO 100 mg BID@1000,1800 [facility] Administration Duloxetine HCl 20 mg 08/11/18 10:00 08/14/18 09:30 Cymbalta - PO 20 mg DAILY [facility] Administration Heparin Sodium (Porcine) 5,000 unit 08/10/18 22:00 08/14/18 09:30 Heparin - SQ Not Given BID [facility] Meropenem 500 mg/ Dextrose 100 mls @ 200 mls/hr 08/11/18 10:00 08/14/18 09:30 IVPB 200 mls/hr DAILY [facility] Administration Lactobacillus Acidophilus 1 tab 08/11/18 10:00 08/14/18 09:30 Bacid - PO 1 tab DAILY [facility] Administration Mesalamine 800 mg 08/10/18 14:00 08/14/18 06:16 Asacol Hd - PO 800 mg TID [facility] Administration Impression 1. ESRD 2. anemia 3. hypokalemia 4. Hep B 5. diarrhea 6. depression 7. non-compliance with HD 8. acidosis - metabolic 9. hypocalcemia 10. hearing loss 11. sepsis Plan - HD today - GI workup in progress - diarrhea starting to improve - monitor lytes - monitor bp - wound care to leg - GI follow up for Hep B as tenofivir is on hold - will follow
[2018-08-14] MEDS: COLLAGENASE CLOSTRIDIUM HIST. 30 GRAMS TUBE TP SCH (18:34)
[2018-08-15] MEDS: MESALAMINE 800 MG TABLET.DR PO SCH ×3 (06:47→21:22)
[2018-08-15] MEDS: BANATROL PLUS POWDER PACKET PO SCH ×3 (06:47→21:23)
[2018-08-15] MEDS: CALCIUM ACETATE 667 MG CAPSULE (FP) PO SCH ×3 (08:10→17:16)
[2018-08-15] MEDS ORDERED: PT OWN MED DRAWER 7, Y5N ONE ×2 (10:14→20:57)
[2018-08-15] MEDS: HEPARIN NA (PORCINE) 5,000 UNITS/ML 1ML VIAL SQ SCH ×2 (10:15→21:23)
[2018-08-15] MEDS: LACTOBACILLUS ACIDOPHILUS 1 TABLET PO SCH (10:22)
[2018-08-15] MEDS: DULoxetine HCL 20 MG CAPSULE.DR (FP) PO SCH (10:22)
[2018-08-15] MEDS: MEROPENEM 500 MG in DEXTROSE 5%-WATER 100 ML IVPB SCH (10:22)
[2018-08-15] MEDS: DOXYCYCLINE HYCLATE 100 MG CAPSULE PO SCH ×2 (10:22→17:20)
--- NOTE | 2018-08-15 10:37 | PN ---
Progress Note (short form) - Note Progress Note: appetite decreased has diarrhea very depressed , does not want care per RN frustrated \ Vital Signs - 24 hr 08/15/18 08/15/18 08/15/18 06:00 09:00 10:00 Temperature 98.1 F 98.6 F Pulse Rate 97 H 90 Respiratory 17 18 Rate Blood Pressure 110/67 140/75 O2 Sat by Pulse 100 Oximetry (%) 08/15/18 08/15/18 14:52 18:00 Temperature 98.3 F 98.0 F Pulse Rate 98 H 94 H Respiratory 17 20 Rate Blood Pressure 142/85 125/75 O2 Sat by Pulse Oximetry (%) Current Medications Generic Name Dose Route Start Last Admin Trade Name Freq PRN Reason Stop Dose Admin Calcium Acetate 1,334 mg 08/10/18 17:30 08/15/18 17:16 Phoslo - PO Not Given TIDCM [facility] Collagenase 1 applic 08/11/18 10:00 08/15/18 14:01 Santyl - TP 1 applic DAILY [facility] Administration Diphenhydramine HCl 25 mg 08/10/18 17:16 08/14/18 21:56 Benadryl - PO 25 mg Q6H PRN Administration FOR ITCHING Doxycycline Hyclate 100 mg 08/10/18 18:00 08/15/18 17:20 Vibramycin - PO 100 mg BID@1000,1800 [facility] Administration Duloxetine HCl 20 mg 08/11/18 10:00 08/15/18 10:22 Cymbalta - PO 20 mg DAILY [facility] Administration Epoetin Arjun 7,000 unit 08/16/18 16:39 Procrit - IVPUSH 08/16/18 16:40 ONCE ONE Heparin Sodium (Porcine) 5,000 unit 08/10/18 22:00 08/15/18 21:23 Heparin - SQ Not Given BID [facility] Meropenem 500 mg/ Dextrose 100 mls @ 200 mls/hr 08/11/18 10:00 08/15/18 10:22 IVPB 200 mls/hr DAILY [facility] Administration Sodium Chloride 250 mls @ 3,000 mls/hr 08/15/18 16:39 Normal Saline - IV 08/16/18 16:39 PRN PRN Hypotension during Dialysis Lactobacillus Acidophilus 1 tab 08/11/18 10:00 08/15/18 10:22 Bacid - PO 1 tab DAILY [facility] Administration Mesalamine 800 mg 08/10/18 14:00 08/15/18 21:22 Asacol Hd - PO 800 mg TID [facility] Administration Constitutional: Yes: No Distress, Calm Eyes: Yes: Conjunctiva Clear Neck: Yes: Supple Cardiovascular: Yes: Regular Rate and Rhythm Gastrointestinal: Yes: Normal Bowel Sounds, Soft, not tender Edema: yes- hands Integumentary: Yes: Other (history of heel ulcers--- follows at wound care.) Neurological: Yes: Alert Assessment/Plan continue with local wound care on iv meropenum cdiff pcr negative still has diarrhea HD per renal Problem List - Problems (1) Acute diarrhea Code(s): R19.7 - DIARRHEA, UNSPECIFIED (2) Bilateral pressure ulcer of feet Code(s): L89.899 - PRESSURE ULCER OF OTHER SITE, UNSPECIFIED STAGE (3) C. difficile colitis Code(s): A04.72 - ENTEROCOLITIS D/T CLOSTRIDIUM DIFFICILE, NOT SPCF RECUR (4) Chronic diarrhea Code(s): K52.9 - NONINFECTIVE GASTROENTERITIS AND COLITIS, UNSPECIFIED (5) Diabetic foot ulcer Code(s): E11.621 - TYPE 2 DIABETES MELLITUS WITH FOOT ULCER; L97.509 - NON- PRESSURE CHRONIC ULCER OTH PRT UNSP FOOT W UNSP SEVERITY Qualifiers: Diabetic foot ulcer location: heel Diabetes mellitus type: other specified (including JADON) Laterality: unspecified laterality Non-pressure ulcer stage : unspecified non-pressure ulcer stage Qualified Code(s): E13.621 - Other specified diabetes mellitus with foot ulcer; L97.409 - Non-pressure chronic ulcer of unspecified heel and midfoot with unspecified severity (6) ESRD (end stage renal disease) Code(s): N18.6 - END STAGE RENAL DISEASE (7) Generalized weakness Code(s): R53.1 - WEAKNESS (8) Sacral decubitus ulcer Code(s): L89.159 - PRESSURE ULCER OF SACRAL REGION, UNSPECIFIED STAGE
[2018-08-15] MEDS: COLLAGENASE CLOSTRIDIUM HIST. 30 GRAMS TUBE TP SCH (14:01)
[2018-08-15] MEDS ORDERED: SODIUM CHLORIDE 250 ML IV PRN (16:39)
--- NOTE | 2018-08-15 16:39 | PN ---
Progress Note, Physician History of Present Illness: Pt seen and examined at bedside. He is awake and alert. He denies shortness of breath. He tolerated HD yesterday. He feels that the diarrhea is starting to improve. - Current Medication List Current Medications: Active Medications Calcium Acetate (Phoslo -) 1,334 mg PO TIDCM [facility] Last Admin: 08/15/18 11:29 Dose: Not Given Collagenase (Santyl -) 1 applic TP DAILY [facility] Last Admin: 08/15/18 14:01 Dose: 1 applic Diphenhydramine HCl (Benadryl -) 25 mg PO Q6H PRN PRN Reason: FOR ITCHING Last Admin: 08/14/18 21:56 Dose: 25 mg Doxycycline Hyclate (Vibramycin -) 100 mg PO BID@1000,1800 [facility] Last Admin: 08/15/18 10:22 Dose: 100 mg Duloxetine HCl (Cymbalta -) 20 mg PO DAILY [facility] Last Admin: 08/15/18 10:22 Dose: 20 mg Heparin Sodium (Porcine) (Heparin -) 5,000 unit SQ BID [facility] Last Admin: 08/15/18 10:15 Dose: Not Given Meropenem 500 mg/ Dextrose 100 mls @ 200 mls/hr IVPB DAILY [facility] Last Admin: 08/15/18 10:22 Dose: 200 mls/hr Lactobacillus Acidophilus (Bacid -) 1 tab PO DAILY [facility] Last Admin: 08/15/18 10:22 Dose: 1 tab Mesalamine (Asacol Hd -) 800 mg PO TID [facility] Last Admin: 08/15/18 14:01 Dose: 800 mg - Objective Vital Signs: Vital Signs Temperature 98.3 F 08/15/18 14:52 Pulse Rate 98 H 08/15/18 14:52 Respiratory Rate 17 08/15/18 14:52 Blood Pressure 142/85 08/15/18 14:52 O2 Sat by Pulse Oximetry (%) 100 08/15/18 09:00 Constitutional: Yes: Calm Eyes: Yes: Conjunctiva Clear HENT: Yes: Atraumatic Neck: Yes: Supple Cardiovascular: Yes: S1, S2 Respiratory: Yes: CTA Bilaterally Gastrointestinal: Yes: Normal Bowel Sounds, Soft Genitourinary: Yes: WNL Musculoskeletal: Yes: Muscle Weakness Edema: No Neurological: Yes: Oriented Psychiatric: Yes: Oriented Labs: CBC, BMP 08/14/18 09:50 08/14/18 09:50 INR, PTT INR 1.01 (0.83-1.09) 07/24/18 08:30 Problem List - Problems (1) ESRD (end stage renal disease) Code(s): N18.6 - END STAGE RENAL DISEASE Assessment/Plan Current Medications Generic Name Dose Route Start Last Admin Trade Name Freq PRN Reason Stop Dose Admin Calcium Acetate 1,334 mg 08/10/18 17:30 08/15/18 11:29 Phoslo - PO Not Given TIDCM [facility] Collagenase 1 applic 08/11/18 10:00 08/15/18 14:01 Santyl - TP 1 applic DAILY [facility] Administration Diphenhydramine HCl 25 mg 08/10/18 17:16 08/14/18 21:56 Benadryl - PO 25 mg Q6H PRN Administration FOR ITCHING Doxycycline Hyclate 100 mg 08/10/18 18:00 08/15/18 10:22 Vibramycin - PO 100 mg BID@1000,1800 [facility] Administration Duloxetine HCl 20 mg 08/11/18 10:00 08/15/18 10:22 Cymbalta - PO 20 mg DAILY [facility] Administration Heparin Sodium (Porcine) 5,000 unit 08/10/18 22:00 08/15/18 10:15 Heparin - SQ Not Given BID [facility] Meropenem 500 mg/ Dextrose 100 mls @ 200 mls/hr 08/11/18 10:00 08/15/18 10:22 IVPB 200 mls/hr DAILY [facility] Administration Lactobacillus Acidophilus 1 tab 08/11/18 10:00 08/15/18 10:22 Bacid - PO 1 tab DAILY [facility] Administration Mesalamine 800 mg 08/10/18 14:00 08/15/18 14:01 Asacol Hd - PO 800 mg TID [facility] Administration Impression 1. ESRD 2. anemia 3. hypokalemia 4. Hep B 5. diarrhea 6. depression 7. non-compliance with HD 8. acidosis - metabolic 9. hypocalcemia 10. hearing loss 11. sepsis Plan - HD in am - GI workup in progress - diarrhea improving - monitor potassium - encourage PO intake - wound care to leg - GI follow up for Hep B as tenofivir is on hold - will follow
--- NOTE | 2018-08-15 18:15 | PN ---
Progress Note, Physician History of Present Illness: continues to be stable no issues wounds looked at - Current Medication List Current Medications: Active Medications Calcium Acetate (Phoslo -) 1,334 mg PO TIDCM [facility] Last Admin: 08/15/18 17:16 Dose: Not Given Collagenase (Santyl -) 1 applic TP DAILY [facility] Last Admin: 08/15/18 14:01 Dose: 1 applic Diphenhydramine HCl (Benadryl -) 25 mg PO Q6H PRN PRN Reason: FOR ITCHING Last Admin: 08/14/18 21:56 Dose: 25 mg Doxycycline Hyclate (Vibramycin -) 100 mg PO BID@1000,1800 [facility] Last Admin: 08/15/18 17:20 Dose: 100 mg Duloxetine HCl (Cymbalta -) 20 mg PO DAILY [facility] Last Admin: 08/15/18 10:22 Dose: 20 mg Epoetin Arjun (Procrit -) 7,000 unit IVPUSH ONCE ONE Stop: 08/16/18 16:40 Heparin Sodium (Porcine) (Heparin -) 5,000 unit SQ BID [facility] Last Admin: 08/15/18 10:15 Dose: Not Given Meropenem 500 mg/ Dextrose 100 mls @ 200 mls/hr IVPB DAILY [facility] Last Admin: 08/15/18 10:22 Dose: 200 mls/hr Sodium Chloride (Normal Saline -) 250 mls @ 3,000 mls/hr IV PRN PRN PRN Reason: Hypotension during Dialysis Stop: 08/16/18 16:39 Lactobacillus Acidophilus (Bacid -) 1 tab PO DAILY [facility] Last Admin: 08/15/18 10:22 Dose: 1 tab Mesalamine (Asacol Hd -) 800 mg PO TID [facility] Last Admin: 08/15/18 14:01 Dose: 800 mg - Objective Vital Signs: Vital Signs Temperature 98.3 F 08/15/18 14:52 Pulse Rate 98 H 08/15/18 14:52 Respiratory Rate 17 08/15/18 14:52 Blood Pressure 142/85 08/15/18 14:52 O2 Sat by Pulse Oximetry (%) 100 08/15/18 09:00 Constitutional: Yes: No Distress, Calm Cardiovascular: Yes: Regular Rate and Rhythm Respiratory: Yes: Regular, CTA Bilaterally Gastrointestinal: Yes: Normal Bowel Sounds, Soft Musculoskeletal: Yes: Other Extremities: Yes: Other Wound/Incision: Yes: Dressing Dry and Intact, Dressing Removed, Other (wounds noted) Psychiatric: Yes: Alert, Oriented Labs: CBC, BMP 08/14/18 09:50 08/14/18 09:50 INR, PTT INR 1.01 (0.83-1.09) 07/24/18 08:30 Assessment/Plan Assessment/Plan Problem List - Problems (1) Acute diarrhea Code(s): R19.7 - DIARRHEA, UNSPECIFIED (2) Bilateral pressure ulcer of feet Code(s): L89.899 - PRESSURE ULCER OF OTHER SITE, UNSPECIFIED STAGE (3) C. difficile colitis Code(s): A04.72 - ENTEROCOLITIS D/T CLOSTRIDIUM DIFFICILE, NOT SPCF RECUR (4) Chronic diarrhea Code(s): K52.9 - NONINFECTIVE GASTROENTERITIS AND COLITIS, UNSPECIFIED (5) Diabetic foot ulcer Code(s): E11.621 - TYPE 2 DIABETES MELLITUS WITH FOOT ULCER; L97.509 - NON- PRESSURE CHRONIC ULCER OTH PRT UNSP FOOT W UNSP SEVERITY Qualifiers: Diabetic foot ulcer location: heel Diabetes mellitus type: other specified (including JADON) Laterality: unspecified laterality Non-pressure ulcer stage : unspecified non-pressure ulcer stage Qualified Code(s): E13.621 - Other specified diabetes mellitus with foot ulcer; L97.409 - Non-pressure chronic ulcer of unspecified heel and midfoot with unspecified severity (6) ESRD (end stage renal disease) Code(s): N18.6 - END STAGE RENAL DISEASE (7) Generalized weakness Code(s): R53.1 - WEAKNESS (8) Sacral decubitus ulcer Code(s): L89.159 - PRESSURE ULCER OF SACRAL REGION, UNSPECIFIED STAGE 9 left heel wound 10 osteo of the heel plan will change to oral abx patient will tali it for couple of days close watch rest as per the team wound care to ahve a look at the patient
--- NOTE | 2018-08-15 19:11 | PN ---
GI Progress Note Subjective: Three loose BM's during day shift Mr. Avalos feels the diarrhea was a little better today No abdominal pain For foot wound debridement - Objective Vital Signs: Vital Signs Temperature 98.0 F 08/15/18 18:00 Pulse Rate 94 H 08/15/18 18:00 Respiratory Rate 20 08/15/18 18:00 Blood Pressure 125/75 08/15/18 18:00 O2 Sat by Pulse Oximetry (%) 100 08/15/18 09:00 Constitutional: Calm Eyes: No: Sclera Icterus Cardiovascular: Yes: Regular Rate and Rhythm Respiratory: Yes: CTA Bilaterally ...Auscultate: Yes: Normoactive Bowel Sounds ...Palpate: No: Hepatomegaly, Splenomegaly, Tenderness Edema: No (No LE edema) Labs: CBC, BMP 08/14/18 09:50 08/14/18 09:50 INR, PTT INR 1.01 (0.83-1.09) 07/24/18 08:30 Problem List - Problems (1) Diarrhea Assessment/Plan: Plasma 5HIAA pending On Asacol HD Awaiting to see how diarrhea is off of all antibiotics Redose Imodium this evening Lactose free / low residue diet Code(s): R19.7 - DIARRHEA, UNSPECIFIED Qualifiers: Diarrhea type: unspecified type Qualified Code(s): R19.7 - Diarrhea, unspecified
[2018-08-15] MEDS ORDERED: LOPERAMIDE HCL 2 MG CAPSULE PO ONE (20:15)
[2018-08-16] MEDS: BANATROL PLUS POWDER PACKET PO SCH ×3 (06:28→22:21)
[2018-08-16] MEDS: MESALAMINE 800 MG TABLET.DR PO SCH ×3 (06:28→22:21)
[2018-08-16] MEDS: CALCIUM ACETATE 667 MG CAPSULE (FP) PO SCH ×3 (09:38→18:47)
[2018-08-16] MEDS ORDERED: PT OWN MED DRAWER 7, Y5N ONE ×6 (11:00→21:20)
[2018-08-16] MEDS: LACTOBACILLUS ACIDOPHILUS 1 TABLET PO SCH (11:01)
[2018-08-16] MEDS: DOXYCYCLINE HYCLATE 100 MG CAPSULE PO SCH ×2 (11:01→19:00)
[2018-08-16] MEDS: MEROPENEM 500 MG in DEXTROSE 5%-WATER 100 ML IVPB SCH (11:02)
[2018-08-16] MEDS: HEPARIN NA (PORCINE) 5,000 UNITS/ML 1ML VIAL SQ SCH ×2 (11:20→22:21)
[2018-08-16] MEDS: diphenhydrAMINE HCL 25 MG CAPSULE (FP) PO PRN (11:20)
[2018-08-16] MEDS: DULoxetine HCL 20 MG CAPSULE.DR (FP) PO SCH (11:23)
--- NOTE | 2018-08-16 12:26 | PN ---
Progress Note, Physician History of Present Illness: Pt seen and examined at bedside. He is refusing HD today. He denies shortness of breath. - Current Medication List Current Medications: Active Medications Calcium Acetate (Phoslo -) 1,334 mg PO TIDCM [facility] Last Admin: 08/16/18 11:52 Dose: Not Given Collagenase (Santyl -) 1 applic TP DAILY [facility] Last Admin: 08/15/18 14:01 Dose: 1 applic Diphenhydramine HCl (Benadryl -) 25 mg PO Q6H PRN PRN Reason: FOR ITCHING Last Admin: 08/16/18 11:20 Dose: 25 mg Doxycycline Hyclate (Vibramycin -) 100 mg PO BID@1000,1800 [facility] Last Admin: 08/16/18 11:01 Dose: 100 mg Duloxetine HCl (Cymbalta -) 20 mg PO DAILY [facility] Last Admin: 08/16/18 11:23 Dose: 20 mg Epoetin Arjun (Procrit -) 7,000 unit IVPUSH ONCE ONE Stop: 08/16/18 16:40 Heparin Sodium (Porcine) (Heparin -) 5,000 unit SQ BID [facility] Last Admin: 08/16/18 11:20 Dose: Not Given Meropenem 500 mg/ Dextrose 100 mls @ 200 mls/hr IVPB DAILY [facility] Last Admin: 08/16/18 11:02 Dose: 200 mls/hr Sodium Chloride (Normal Saline -) 250 mls @ 3,000 mls/hr IV PRN PRN PRN Reason: Hypotension during Dialysis Stop: 08/16/18 16:39 Lactobacillus Acidophilus (Bacid -) 1 tab PO DAILY [facility] Last Admin: 08/16/18 11:01 Dose: 1 tab Mesalamine (Asacol Hd -) 800 mg PO TID [facility] Last Admin: 08/16/18 06:28 Dose: 800 mg - Objective Vital Signs: Vital Signs Temperature 98.0 F 08/16/18 06:00 Pulse Rate 88 08/16/18 06:00 Respiratory Rate 20 08/16/18 06:00 Blood Pressure 133/78 08/16/18 06:00 O2 Sat by Pulse Oximetry (%) 100 08/15/18 21:00 Constitutional: Yes: Calm Eyes: Yes: Conjunctiva Clear HENT: Yes: Atraumatic Cardiovascular: Yes: S1, S2 Respiratory: Yes: CTA Bilaterally Gastrointestinal: Yes: Normal Bowel Sounds, Soft Genitourinary: Yes: Incontinence Musculoskeletal: Yes: Muscle Weakness Edema: Yes Edema: LLE: Trace, RLE: Trace Neurological: Yes: Oriented Psychiatric: Yes: Oriented Labs: CBC, BMP 08/14/18 09:50 08/14/18 09:50 INR, PTT INR 1.01 (0.83-1.09) 07/24/18 08:30 Problem List - Problems (1) ESRD (end stage renal disease) Code(s): N18.6 - END STAGE RENAL DISEASE Assessment/Plan Current Medications Generic Name Dose Route Start Last Admin Trade Name Freq PRN Reason Stop Dose Admin Calcium Acetate 1,334 mg 08/10/18 17:30 08/16/18 11:52 Phoslo - PO Not Given TIDCM [facility] Collagenase 1 applic 08/11/18 10:00 08/15/18 14:01 Santyl - TP 1 applic DAILY [facility] Administration Diphenhydramine HCl 25 mg 08/10/18 17:16 08/16/18 11:20 Benadryl - PO 25 mg Q6H PRN Administration FOR ITCHING Doxycycline Hyclate 100 mg 08/10/18 18:00 08/16/18 11:01 Vibramycin - PO 100 mg BID@1000,1800 [facility] Administration Duloxetine HCl 20 mg 08/11/18 10:00 08/16/18 11:23 Cymbalta - PO 20 mg DAILY [facility] Administration Epoetin Arjun 7,000 unit 08/16/18 16:39 Procrit - IVPUSH 08/16/18 16:40 ONCE ONE Heparin Sodium (Porcine) 5,000 unit 08/10/18 22:00 08/16/18 11:20 Heparin - SQ Not Given BID [facility] Meropenem 500 mg/ Dextrose 100 mls @ 200 mls/hr 08/11/18 10:00 08/16/18 11:02 IVPB 200 mls/hr DAILY [facility] Administration Sodium Chloride 250 mls @ 3,000 mls/hr 08/15/18 16:39 Normal Saline - IV 08/16/18 16:39 PRN PRN Hypotension during Dialysis Lactobacillus Acidophilus 1 tab 08/11/18 10:00 08/16/18 11:01 Bacid - PO 1 tab DAILY [facility] Administration Mesalamine 800 mg 08/10/18 14:00 12/19/18 06:28 Asacol Hd - PO 800 mg TID [facility] Administration Impression 1. ESRD 2. anemia 3. hypokalemia 4. Hep B 5. diarrhea 6. depression 7. non-compliance with HD 8. acidosis - metabolic 9. hypocalcemia 10. hearing loss 11. sepsis Plan - pt refusing HD - will arrange HD in am - pt not very compliant with HD schedule - monitor for diarrhea - encourage PO intake - wound care to leg - GI follow up for Hep B as tenofivir is on hold - will follow
--- NOTE | 2018-08-16 14:43 | PN ---
Progress Note, Physician History of Present Illness: stable no new issues wound examined one heel clean other heal some change in the skin noted - Current Medication List Current Medications: Active Medications Calcium Acetate (Phoslo -) 1,334 mg PO TIDCM [facility] Last Admin: 08/16/18 11:52 Dose: Not Given Collagenase (Santyl -) 1 applic TP DAILY [facility] Last Admin: 08/15/18 14:01 Dose: 1 applic Diphenhydramine HCl (Benadryl -) 25 mg PO Q6H PRN PRN Reason: FOR ITCHING Last Admin: 08/16/18 11:20 Dose: 25 mg Doxycycline Hyclate (Vibramycin -) 100 mg PO BID@1000,1800 [facility] Last Admin: 08/16/18 11:01 Dose: 100 mg Duloxetine HCl (Cymbalta -) 20 mg PO DAILY [facility] Last Admin: 08/16/18 11:23 Dose: 20 mg Epoetin Arjun (Procrit -) 7,000 unit IVPUSH ONCE ONE Stop: 08/16/18 16:40 Heparin Sodium (Porcine) (Heparin -) 5,000 unit SQ BID [facility] Last Admin: 08/16/18 11:20 Dose: Not Given Sodium Chloride (Normal Saline -) 250 mls @ 3,000 mls/hr IV PRN PRN PRN Reason: Hypotension during Dialysis Stop: 08/16/18 16:39 Lactobacillus Acidophilus (Bacid -) 1 tab PO DAILY [facility] Last Admin: 08/16/18 11:01 Dose: 1 tab Mesalamine (Asacol Hd -) 800 mg PO TID [facility] Last Admin: 08/16/18 06:28 Dose: 800 mg - Objective Vital Signs: Vital Signs Temperature 98.0 F 08/16/18 06:00 Pulse Rate 88 08/16/18 06:00 Respiratory Rate 20 08/16/18 06:00 Blood Pressure 133/78 08/16/18 06:00 O2 Sat by Pulse Oximetry (%) 100 08/15/18 21:00 Constitutional: Yes: No Distress, Calm Cardiovascular: Yes: Regular Rate and Rhythm Respiratory: Yes: Regular, CTA Bilaterally Gastrointestinal: Yes: Normal Bowel Sounds, Soft Musculoskeletal: Yes: WNL Extremities: Yes: Other (bilat heel ulcer) Neurological: Yes: Alert, Oriented Psychiatric: Yes: Alert, Oriented Labs: CBC, BMP 08/14/18 09:50 12/17/18 09:50 INR, PTT INR 1.01 (0.83-1.09) 07/24/18 08:30 Assessment/Plan Problem List - Problems (1) Acute diarrhea Code(s): R19.7 - DIARRHEA, UNSPECIFIED (2) Bilateral pressure ulcer of feet Code(s): L89.899 - PRESSURE ULCER OF OTHER SITE, UNSPECIFIED STAGE (3) C. difficile colitis Code(s): A04.72 - ENTEROCOLITIS D/T CLOSTRIDIUM DIFFICILE, NOT SPCF RECUR (4) Chronic diarrhea Code(s): K52.9 - NONINFECTIVE GASTROENTERITIS AND COLITIS, UNSPECIFIED (5) Diabetic foot ulcer Code(s): E11.621 - TYPE 2 DIABETES MELLITUS WITH FOOT ULCER; L97.509 - NON- PRESSURE CHRONIC ULCER OTH PRT UNSP FOOT W UNSP SEVERITY Qualifiers: Diabetic foot ulcer location: heel Diabetes mellitus type: other specified (including JADON) Laterality: unspecified laterality Non-pressure ulcer stage : unspecified non-pressure ulcer stage Qualified Code(s): E13.621 - Other specified diabetes mellitus with foot ulcer; L97.409 - Non-pressure chronic ulcer of unspecified heel and midfoot with unspecified severity (6) ESRD (end stage renal disease) Code(s): N18.6 - END STAGE RENAL DISEASE (7) Generalized weakness Code(s): R53.1 - WEAKNESS (8) Sacral decubitus ulcer Code(s): L89.159 - PRESSURE ULCER OF SACRAL REGION, UNSPECIFIED STAGE 9 left heel wound plan will change to oral abx give abx all for one more week wound care to look at if he needs debridement if not patient can go on oral abx wound care
[2018-08-16] MEDS ORDERED: EPOETIN ALFA 10,000 UNIT/1 ML VIAL IVPUSH ONE (16:39)
--- NOTE | 2018-08-16 18:20 | PN ---
Progress Note (short form) - Note Progress Note: pt seen this AM no bm today- was given Immodium last night Had breakfast Vital Signs - 24 hr 08/15/18 08/16/18 08/16/18 21:00 06:00 09:00 Temperature 98.0 F Pulse Rate 88 Respiratory 20 20 Rate Blood Pressure 133/78 O2 Sat by Pulse 100 100 Oximetry (%) 08/16/18 08/16/18 15:22 18:00 Temperature 98.1 F 97.8 F Pulse Rate 91 H 91 H Respiratory 20 20 Rate Blood Pressure 130/72 144/88 O2 Sat by Pulse Oximetry (%) Current Medications Generic Name Dose Route Start Last Admin Trade Name Freq PRN Reason Stop Dose Admin Amoxicillin/Clavulanate Potassium 1 tab 08/16/18 17:30 Augmentin - 250mg Tablet PO BID@0800,1730 [facility] Calcium Acetate 1,334 mg 08/10/18 17:30 08/16/18 11:52 Phoslo - PO Not Given TIDCM [facility] Cefuroxime Axetil 250 mg 08/16/18 14:45 Ceftin - PO DAILY [facility] Collagenase 1 applic 08/11/18 10:00 08/15/18 14:01 Santyl - TP 1 applic DAILY [facility] Administration Diphenhydramine HCl 25 mg 08/10/18 17:16 08/16/18 11:20 Benadryl - PO 25 mg Q6H PRN Administration FOR ITCHING Doxycycline Hyclate 100 mg 08/10/18 18:00 08/16/18 11:01 Vibramycin - PO 100 mg BID@1000,1800 [facility] Administration Duloxetine HCl 20 mg 08/11/18 10:00 08/16/18 11:23 Cymbalta - PO 20 mg DAILY [facility] Administration Epoetin Arjun 7,000 unit 08/16/18 16:39 Procrit - IVPUSH 08/16/18 16:40 ONCE ONE Heparin Sodium (Porcine) 5,000 unit 08/10/18 22:00 08/16/18 11:20 Heparin - SQ Not Given BID [facility] Sodium Chloride 250 mls @ 3,000 mls/hr 08/15/18 16:39 Normal Saline - IV 08/16/18 16:39 PRN PRN Hypotension during Dialysis Lactobacillus Acidophilus 1 tab 08/11/18 10:00 12/19/18 11:01 Bacid - PO 1 tab DAILY [facility] Administration Mesalamine 800 mg 08/10/18 14:00 08/16/18 15:10 Asacol Hd - PO 800 mg TID [facility] Administration Constitutional: Yes: No Distress, Calm Eyes: Yes: Conjunctiva Clear Neck: Yes: Supple Cardiovascular: Yes: Regular Rate and Rhythm Gastrointestinal: Yes: Normal Bowel Sounds, Soft, not tender Edema: yes- hands Integumentary: Yes: Other (history of heel ulcers--- follows at wound care.) Neurological: Yes: Alert Assessment/Plan Wound care eval with regards to heel wounds continue with local wound care on iv meropenum cdiff pcr negative no bm HD per renal pt does not wish to go to [place], LTACH wants to go home Problem List - Problems (1) Acute diarrhea Code(s): R19.7 - DIARRHEA, UNSPECIFIED (2) Bilateral pressure ulcer of feet Code(s): L89.899 - PRESSURE ULCER OF OTHER SITE, UNSPECIFIED STAGE (3) C. difficile colitis Code(s): A04.72 - ENTEROCOLITIS D/T CLOSTRIDIUM DIFFICILE, NOT SPCF RECUR (4) Chronic diarrhea Code(s): K52.9 - NONINFECTIVE GASTROENTERITIS AND COLITIS, UNSPECIFIED (5) Diabetic foot ulcer Code(s): E11.621 - TYPE 2 DIABETES MELLITUS WITH FOOT ULCER; L97.509 - NON- PRESSURE CHRONIC ULCER OTH PRT UNSP FOOT W UNSP SEVERITY Qualifiers: Diabetic foot ulcer location: heel Diabetes mellitus type: other specified (including JADON) Laterality: unspecified laterality Non-pressure ulcer stage : unspecified non-pressure ulcer stage Qualified Code(s): E13.621 - Other specified diabetes mellitus with foot ulcer; L97.409 - Non-pressure chronic ulcer of unspecified heel and midfoot with unspecified severity (6) ESRD (end stage renal disease) Code(s): N18.6 - END STAGE RENAL DISEASE (7) Generalized weakness Code(s): R53.1 - WEAKNESS (8) Sacral decubitus ulcer Code(s): L89.159 - PRESSURE ULCER OF SACRAL REGION, UNSPECIFIED STAGE
[2018-08-16] MEDS: CEFUROXIME AXETIL 250 MG TABLET PO SCH (18:42)
[2018-08-16] MEDS: AMOX TR/POT CLAV 250MG/125MG TABLETS PO SCH (18:42)
[2018-08-16] MEDS: COLLAGENASE CLOSTRIDIUM HIST. 30 GRAMS TUBE TP SCH (18:42)
[2018-08-17] MEDS: BANATROL PLUS POWDER PACKET PO SCH ×3 (05:52→22:05)
[2018-08-17] MEDS: MESALAMINE 800 MG TABLET.DR PO SCH ×3 (05:52→22:05)
[2018-08-17] MEDS: CALCIUM ACETATE 667 MG CAPSULE (FP) PO SCH ×3 (09:00→18:03)
[2018-08-17] MEDS: HEPARIN NA (PORCINE) 5,000 UNITS/ML 1ML VIAL SQ SCH (11:04)
[2018-08-17 11:40] LABS: HEMATOCRIT 28.4 % (35.4-49); HEMOGLOBIN 9.5 GM/dL (11.7-16.9); MCHC 33.4 g/dl (32.0-35.9); MEAN CELL VOLUME 92.7 fl (80-96); MEAN PLT VOLUME 9.5 fl (7.5-11.1); PLATELET COUNT 146 K/MM3 (134-434); RBC 3.06 M/mm3 (4.00-5.60); RDW 15.5 % (11.9-15.9); WHITE BLOOD COUNT 6.3 K/mm3 (4.0-10.0)
[2018-08-17] MEDS ORDERED: EPOETIN ALFA 4,000 UNIT, EPOETIN ALFA 3,000 UNIT IVPUSH ONE (12:00)
[2018-08-17 12:10] LABS: ALBUMIN 2.5 g/dl (3.4-5.0); ALK PHOS 78 U/L (45-117); ANION GAP 7 MMOL/L (8-16); BILIRUBIN,TOTAL 0.5 mg/dL (0.2-1); BLOOD UREA NITROGEN 27 mg/dL (7-18); CALCIUM 7.5 mg/dL (8.5-10.1); CHLORIDE 107 mmol/L (98-107); CO2 26 mmol/L (21-32); CREATININE 7.1 mg/dL (0.55-1.3); GLUCOSE,RANDOM 77 mg/dL (74-106); PHOSPHOROUS 4.1 mg/dL (2.5-4.9); SGOT/AST 6 U/L (15-37); SGPT/ALT 6 U/L (13-61); SODIUM 140 mmol/L (136-145); TOT PROT 5.4 g/dl (6.4-8.2)
--- NOTE | 2018-08-17 13:30 | PN ---
Progress Note (short form) - Note Progress Note: pt seen tpday undergoing HD had one bm in the morning-- some formed stool nausea-refusing [place] feels itching over body - does not want Benadryl as it makes him too sleepy Vital Signs - 24 hr 08/16/18 08/16/18 08/16/18 15:22 18:00 21:00 Temperature 98.1 F 97.8 F Pulse Rate 91 H 91 H Respiratory 20 20 18 Rate Blood Pressure 130/72 144/88 O2 Sat by Pulse 100 Oximetry (%) 08/16/18 08/17/18 22:00 06:00 Temperature 98.0 F 97.9 F Pulse Rate 92 H 96 H Respiratory 20 18 Rate Blood Pressure 143/87 143/80 O2 Sat by Pulse Oximetry (%) Current Medications Generic Name Dose Route Start Last Admin Trade Name Freq PRN Reason Stop Dose Admin Amoxicillin/Clavulanate Potassium 1 tab 08/16/18 17:30 08/16/18 18:42 Augmentin - 250mg Tablet PO 1 tab BID@0800,1730 [facility] Administration Calcium Acetate 1,334 mg 08/10/18 17:30 08/17/18 09:00 Phoslo - PO Not Given TIDCM [facility] Cefuroxime Axetil 250 mg 08/16/18 14:45 08/16/18 18:42 Ceftin - PO 250 mg DAILY [facility] Administration Collagenase 1 applic 08/11/18 10:00 08/16/18 18:42 Santyl - TP 1 applic DAILY [facility] Administration Diphenhydramine HCl 25 mg 08/10/18 17:16 08/16/18 11:20 Benadryl - PO 25 mg Q6H PRN Administration FOR ITCHING Doxycycline Hyclate 100 mg 08/10/18 18:00 08/16/18 19:00 Vibramycin - PO 100 mg BID@1000,1800 [facility] Administration Duloxetine HCl 20 mg 08/11/18 10:00 08/16/18 11:23 Cymbalta - PO 20 mg DAILY [facility] Administration Heparin Sodium (Porcine) 5,000 unit 08/10/18 22:00 08/17/18 11:04 Heparin - SQ Not Given BID [facility] Sodium Chloride 250 mls @ 3,000 mls/hr 08/15/18 16:39 Normal Saline - IV 12/20/18 16:38 PRN PRN Hypotension during Dialysis Lactobacillus Acidophilus 1 tab 08/11/18 10:00 08/16/18 11:01 Bacid - PO 1 tab DAILY [facility] Administration Mesalamine 800 mg 08/10/18 14:00 08/17/18 05:52 Asacol Hd - PO 800 mg TID [facility] Administration Laboratory Results - last 24 hr 08/17/18 08/17/18 11:15 11:15 WBC 6.3 RBC 3.06 L Hgb 9.5 L Hct 28.4 L MCV 92.7 MCH 31.0 MCHC 33.4 RDW 15.5 Plt Count 146 MPV 9.5 Sodium 140 Potassium 4.0 Chloride 107 Carbon Dioxide 26 Anion Gap 7 L BUN 27 H Creatinine 7.1 H Creat Clearance w eGFR 8.24 Random Glucose 77 Calcium 7.5 L Phosphorus 4.1 Total Bilirubin 0.5 AST 6 L ALT 6 L Alkaline Phosphatase 78 Total Protein 5.4 L Albumin 2.5 L Constitutional: Yes: No Distress, Calm Eyes: Yes: Conjunctiva Clear Neck: Yes: Supple Cardiovascular: Yes: Regular Rate and Rhythm Gastrointestinal: Yes: Normal Bowel Sounds, Soft, not tender Edema: yes- hands Integumentary: Yes: Other (history of heel ulcers--- follows at wound care.) Neurological: Yes: Alert Assessment/Plan Wound care eval with regards to heel wounds-- worsening as per RN continue with local wound care on oral antibiotics cdiff pcr negative bm better HD per renal pt does not wish to go to [place], LTACH wants to go home Problem List - Problems (1) Acute diarrhea Code(s): R19.7 - DIARRHEA, UNSPECIFIED (2) Bilateral pressure ulcer of feet Code(s): L89.899 - PRESSURE ULCER OF OTHER SITE, UNSPECIFIED STAGE (3) C. difficile colitis Code(s): A04.72 - ENTEROCOLITIS D/T CLOSTRIDIUM DIFFICILE, NOT SPCF RECUR (4) Chronic diarrhea Code(s): K52.9 - NONINFECTIVE GASTROENTERITIS AND COLITIS, UNSPECIFIED (5) Diabetic foot ulcer Code(s): E11.621 - TYPE 2 DIABETES MELLITUS WITH FOOT ULCER; L97.509 - NON- PRESSURE CHRONIC ULCER OTH PRT UNSP FOOT W UNSP SEVERITY Qualifiers: Diabetic foot ulcer location: heel Diabetes mellitus type: other specified (including JADON) Laterality: unspecified laterality Non-pressure ulcer stage : unspecified non-pressure ulcer stage Qualified Code(s): E13.621 - Other specified diabetes mellitus with foot ulcer; L97.409 - Non-pressure chronic ulcer of unspecified heel and midfoot with unspecified severity (6) ESRD (end stage renal disease) Code(s): N18.6 - END STAGE RENAL DISEASE (7) Generalized weakness Code(s): R53.1 - WEAKNESS (8) Sacral decubitus ulcer Code(s): L89.159 - PRESSURE ULCER OF SACRAL REGION, UNSPECIFIED STAGE
[2018-08-17] MEDS ORDERED: CALAMINE 8% TOPICAL LOTION 177 ML BOTTLE TP PRN (13:47)
[2018-08-17] MEDS: LACTOBACILLUS ACIDOPHILUS 1 TABLET PO SCH (13:51)
[2018-08-17] MEDS: CEFUROXIME AXETIL 250 MG TABLET PO SCH (13:52)
--- NOTE | 2018-08-17 13:53 | PN ---
Progress Note, Physician History of Present Illness: Pt seen and examined at bedside. He is awake and alert. He requested to stop HD after 2 hours today. - Current Medication List Current Medications: Active Medications Amoxicillin/Clavulanate Potassium (Augmentin - 250mg Tablet) 1 tab PO BID@0800, 1730 [facility] Last Admin: 08/16/18 18:42 Dose: 1 tab Calamine (Calamine 8% Topical Lotion -) 1 applic TP QID PRN PRN Reason: FOR ITCHING Calcium Acetate (Phoslo -) 1,334 mg PO TIDCM [facility] Last Admin: 08/17/18 09:00 Dose: Not Given Cefuroxime Axetil (Ceftin -) 250 mg PO DAILY [facility] Last Admin: 08/16/18 18:42 Dose: 250 mg Collagenase (Santyl -) 1 applic TP DAILY [facility] Last Admin: 08/16/18 18:42 Dose: 1 applic Diphenhydramine HCl (Benadryl -) 25 mg PO Q6H PRN PRN Reason: FOR ITCHING Last Admin: 08/16/18 11:20 Dose: 25 mg Doxycycline Hyclate (Vibramycin -) 100 mg PO BID@1000,1800 [facility] Last Admin: 08/16/18 19:00 Dose: 100 mg Duloxetine HCl (Cymbalta -) 20 mg PO DAILY [facility] Last Admin: 08/16/18 11:23 Dose: 20 mg Heparin Sodium (Porcine) (Heparin -) 5,000 unit SQ BID [facility] Last Admin: 08/17/18 11:04 Dose: Not Given Sodium Chloride (Normal Saline -) 250 mls @ 3,000 mls/hr IV PRN PRN PRN Reason: Hypotension during Dialysis Stop: 08/17/18 16:38 Lactobacillus Acidophilus (Bacid -) 1 tab PO DAILY [facility] Last Admin: 08/16/18 11:01 Dose: 1 tab Mesalamine (Asacol Hd -) 800 mg PO TID [facility] Last Admin: 08/17/18 05:52 Dose: 800 mg - Objective Vital Signs: Vital Signs Temperature 97.9 F 08/17/18 06:00 Pulse Rate 96 H 08/17/18 06:00 Respiratory Rate 18 08/17/18 06:00 Blood Pressure 143/80 08/17/18 06:00 O2 Sat by Pulse Oximetry (%) 100 08/16/18 21:00 Constitutional: Yes: Calm Eyes: Yes: Conjunctiva Clear Cardiovascular: Yes: S1, S2 Respiratory: Yes: CTA Bilaterally Gastrointestinal: Yes: Soft Genitourinary: Yes: Incontinence Musculoskeletal: Yes: WNL Edema: No Neurological: Yes: Oriented Psychiatric: Yes: Oriented Labs: CBC, BMP 08/17/18 11:15 08/17/18 11:15 INR, PTT INR 1.01 (0.83-1.09) 07/24/18 08:30 Problem List - Problems (1) ESRD (end stage renal disease) Code(s): N18.6 - END STAGE RENAL DISEASE Assessment/Plan Current Medications Generic Name Dose Route Start Last Admin Trade Name Freq PRN Reason Stop Dose Admin Amoxicillin/Clavulanate Potassium 1 tab 08/16/18 17:30 08/17/18 13:54 Augmentin - 250mg Tablet PO 1 tab BID@0800,1730 [facility] Administration Calamine 1 applic 08/17/18 13:47 Calamine 8% Topical Lotion - TP QID PRN FOR ITCHING Calcium Acetate 1,334 mg 08/10/18 17:30 08/17/18 13:49 Phoslo - PO Not Given TIDCM [facility] Cefuroxime Axetil 250 mg 08/16/18 14:45 08/17/18 13:52 Ceftin - PO 250 mg DAILY [facility] Administration Collagenase 1 applic 08/11/18 10:00 08/16/18 18:42 Santyl - TP 1 applic DAILY [facility] Administration Diphenhydramine HCl 25 mg 08/10/18 17:16 08/16/18 11:20 Benadryl - PO 25 mg Q6H PRN Administration FOR ITCHING Doxycycline Hyclate 100 mg 08/10/18 18:00 08/17/18 13:54 Vibramycin - PO 100 mg BID@1000,1800 [facility] Administration Duloxetine HCl 20 mg 08/11/18 10:00 08/17/18 13:54 Cymbalta - PO 20 mg DAILY [facility] Administration Heparin Sodium (Porcine) 5,000 unit 08/10/18 22:00 08/17/18 11:04 Heparin - SQ Not Given BID [facility] Sodium Chloride 250 mls @ 3,000 mls/hr 08/15/18 16:39 Normal Saline - IV 08/17/18 16:38 PRN PRN Hypotension during Dialysis Lactobacillus Acidophilus 1 tab 08/11/18 10:00 08/17/18 13:51 Bacid - PO 1 tab DAILY [facility] Administration Mesalamine 800 mg 08/10/18 14:00 08/17/18 13:51 Asacol Hd - PO 800 mg TID [facility] Administration Impression 1. ESRD 2. anemia 3. hypokalemia 4. Hep B 5. diarrhea 6. depression 7. non-compliance with HD 8. acidosis - metabolic 9. hypocalcemia 10. hearing loss 11. sepsis Plan - HD today - spoke to GI, will restart tenofivir - pt tolerating diet - diarrhea is improving - encourage PO intake - wound care to leg - will follow
[2018-08-17] MEDS: DOXYCYCLINE HYCLATE 100 MG CAPSULE PO SCH (13:54)
[2018-08-17] MEDS: AMOX TR/POT CLAV 250MG/125MG TABLETS PO SCH ×2 (13:54→18:02)
[2018-08-17] MEDS: DULoxetine HCL 20 MG CAPSULE.DR (FP) PO SCH (13:54)
--- NOTE | 2018-08-17 14:30 | PN ---
Progress Note, Physician History of Present Illness: stable no issues - Current Medication List Current Medications: Active Medications Amoxicillin/Clavulanate Potassium (Augmentin - 250mg Tablet) 1 tab PO BID@0800, 1730 [facility] Last Admin: 08/17/18 13:54 Dose: 1 tab Calamine (Calamine 8% Topical Lotion -) 1 applic TP QID PRN PRN Reason: FOR ITCHING Calcium Acetate (Phoslo -) 1,334 mg PO TIDCM [facility] Last Admin: 08/17/18 13:49 Dose: Not Given Cefuroxime Axetil (Ceftin -) 250 mg PO DAILY [facility] Last Admin: 08/17/18 13:52 Dose: 250 mg Collagenase (Santyl -) 1 applic TP DAILY [facility] Last Admin: 08/16/18 18:42 Dose: 1 applic Diphenhydramine HCl (Benadryl -) 25 mg PO Q6H PRN PRN Reason: FOR ITCHING Last Admin: 08/16/18 11:20 Dose: 25 mg Doxycycline Hyclate (Vibramycin -) 100 mg PO BID@1000,1800 [facility] Last Admin: 08/17/18 13:54 Dose: 100 mg Duloxetine HCl (Cymbalta -) 20 mg PO DAILY [facility] Last Admin: 08/17/18 13:54 Dose: 20 mg Heparin Sodium (Porcine) (Heparin -) 5,000 unit SQ BID [facility] Last Admin: 08/17/18 11:04 Dose: Not Given Sodium Chloride (Normal Saline -) 250 mls @ 3,000 mls/hr IV PRN PRN PRN Reason: Hypotension during Dialysis Stop: 08/17/18 16:38 Lactobacillus Acidophilus (Bacid -) 1 tab PO DAILY [facility] Last Admin: 08/17/18 13:51 Dose: 1 tab Mesalamine (Asacol Hd -) 800 mg PO TID [facility] Last Admin: 08/17/18 13:51 Dose: 800 mg Tenofovir Disoproxil Fumarate (Viread -) 300 mg PO Th [facility] - Objective Vital Signs: Vital Signs Temperature 97.9 F 08/17/18 06:00 Pulse Rate 95 H 08/17/18 13:40 Respiratory Rate 18 08/17/18 13:40 Blood Pressure 140/90 08/17/18 13:40 O2 Sat by Pulse Oximetry (%) 100 08/16/18 21:00 Constitutional: Yes: No Distress, Calm Cardiovascular: Yes: Regular Rate and Rhythm Respiratory: Yes: Regular, CTA Bilaterally Gastrointestinal: Yes: Normal Bowel Sounds, Soft Musculoskeletal: Yes: WNL Extremities: Yes: Other Wound/Incision: Yes: Dressing Dry and Intact Neurological: Yes: Alert, Oriented Psychiatric: Yes: Alert, Oriented Labs: CBC, BMP 08/17/18 11:15 08/17/18 11:15 INR, PTT INR 1.01 (0.83-1.09) 07/24/18 08:30 Assessment/Plan Problem List - Problems (1) Acute diarrhea Code(s): R19.7 - DIARRHEA, UNSPECIFIED (2) Bilateral pressure ulcer of feet Code(s): L89.899 - PRESSURE ULCER OF OTHER SITE, UNSPECIFIED STAGE (3) C. difficile colitis Code(s): A04.72 - ENTEROCOLITIS D/T CLOSTRIDIUM DIFFICILE, NOT SPCF RECUR (4) Chronic diarrhea Code(s): K52.9 - NONINFECTIVE GASTROENTERITIS AND COLITIS, UNSPECIFIED (5) Diabetic foot ulcer Code(s): E11.621 - TYPE 2 DIABETES MELLITUS WITH FOOT ULCER; L97.509 - NON- PRESSURE CHRONIC ULCER OTH PRT UNSP FOOT W UNSP SEVERITY Qualifiers: Diabetic foot ulcer location: heel Diabetes mellitus type: other specified (including JADON) Laterality: unspecified laterality Non-pressure ulcer stage : unspecified non-pressure ulcer stage Qualified Code(s): E13.621 - Other specified diabetes mellitus with foot ulcer; L97.409 - Non-pressure chronic ulcer of unspecified heel and midfoot with unspecified severity (6) ESRD (end stage renal disease) Code(s): N18.6 - END STAGE RENAL DISEASE (7) Generalized weakness Code(s): R53.1 - WEAKNESS (8) Sacral decubitus ulcer Code(s): L89.159 - PRESSURE ULCER OF SACRAL REGION, UNSPECIFIED STAGE 9 left heel wound plan will change to oral abx complete the course then wound care rest as per the team
[2018-08-17] MEDS: COLLAGENASE CLOSTRIDIUM HIST. 30 GRAMS TUBE TP SCH (16:00)
--- NOTE | 2018-08-17 16:07 | PN ---
Progress Note (short form) - Note Progress Note: Vascular Surgery Pt seen and examined. Dressing changed. Bl stage 4 heel ulcers, clean, 100% granulation. The wounds look so much better since he has not been walking on his heels. Nalini Gomez. Follow up in wound care clinic. CAn resume HBO as outpt as well. Ki Villalobos DO
[2018-08-17] MEDS: TENOFOVIR DISOPROXIL FUMARATE 300 MG TABLET PO SCH (18:01)
[2018-08-17] MEDS ORDERED: PT OWN MED DRAWER 7, Y5N ONE (19:32)
[2018-08-17] MEDS: diphenhydrAMINE HCL 25 MG CAPSULE (FP) PO PRN (22:06)
[2018-08-18] MEDS: BANATROL PLUS POWDER PACKET PO SCH ×3 (06:33→21:12)
[2018-08-18] MEDS: MESALAMINE 800 MG TABLET.DR PO SCH ×3 (06:33→21:19)
[2018-08-18] MEDS ORDERED: PT OWN MED DRAWER 7, Y5N ONE ×2 (10:36→17:58)
[2018-08-18] MEDS: CALCIUM ACETATE 667 MG CAPSULE (FP) PO SCH ×4 (10:45→17:44)
[2018-08-18] MEDS: LACTOBACILLUS ACIDOPHILUS 1 TABLET PO SCH (10:45)
[2018-08-18] MEDS: AMOX TR/POT CLAV 250MG/125MG TABLETS PO SCH ×2 (10:46→17:46)
[2018-08-18] MEDS: DULoxetine HCL 20 MG CAPSULE.DR (FP) PO SCH (10:48)
[2018-08-18] MEDS: CEFUROXIME AXETIL 250 MG TABLET PO SCH (10:48)
[2018-08-18] MEDS: COLLAGENASE CLOSTRIDIUM HIST. 30 GRAMS TUBE TP SCH (10:48)
--- NOTE | 2018-08-18 13:38 | DS ---
Physical Examination Vital Signs: Vital Signs Temperature 98.4 F 08/18/18 10:00 Pulse Rate 89 08/18/18 10:00 Respiratory Rate 18 08/18/18 10:00 Blood Pressure 133/79 08/18/18 10:00 O2 Sat by Pulse Oximetry (%) 100 08/17/18 21:00 Constitutional: Yes: Anxious Cardiovascular: Yes: Regular Rate and Rhythm Respiratory: Yes: Diminished Gastrointestinal: Yes: Normal Bowel Sounds, Soft. No: Tenderness Edema: No Labs: CBC, BMP 08/17/18 11:15 08/17/18 11:15 Discharge Summary Reason For Visit: COLITIS DUE TO CLOSTRIDIUM DIFFICILE Current Active Problems C. difficile colitis (Acute) Depression (Acute) Diarrhea (Acute) Hepatitis B (Acute) Hypotension (Acute) Perceived hearing loss (Acute) Recurrent Clostridium difficile diarrhea (Acute) Hospital Course: Admitted for chronic diarrhea and dehydration -- initially positive for Cdiff-- was seen by ID, renal Started on PO Vanco - tolerated po Vanco - stools were getting better- pt developed sudden hearing loss. Seen by ENT-- antibiotics were discontinued hearing became better-- pt was depressed -- possible selective hearing loss. Was transferred to ICU for hypotension-- sepsis work up negative has continuous diarrhea - underwent colonoscopy after confirming that Cdiff PCR was negative -- no colitis, psuedomembrane noted EGD-- gastritis stable in regular floor-- though decreased frequency of bm-- still has watery stools --->Heels-- show wound cultures positive-- now on PO antibiotics -- will need 6 more days --->keep on Bacid --->5HIAA pending chromogranin-- slightly positive - but not significant per GI -->will need outpt octrotide scan per GI ---> hyperbaric therapy stable for dc Condition: Improved - Instructions Referrals: Heydi Sampson MD [Primary Care Provider] - Disposition: [facility] - Home Medications Comprehensive Discharge Medication List: Ambulatory Orders Unobtainable 07/24/18
--- NOTE | 2018-08-18 14:48 | PN ---
Progress Note, Physician History of Present Illness: stable no issues still says he has dirrhoea - Current Medication List Current Medications: Active Medications Amoxicillin/Clavulanate Potassium (Augmentin - 250mg Tablet) 1 tab PO BID@0800, 1730 [facility] Last Admin: 08/18/18 10:46 Dose: 1 tab Calamine (Calamine 8% Topical Lotion -) 1 applic TP QID PRN PRN Reason: FOR ITCHING Calcium Acetate (Phoslo -) 1,334 mg PO TIDCM [facility] Last Admin: 08/18/18 10:50 Dose: Not Given Cefuroxime Axetil (Ceftin -) 250 mg PO DAILY [facility] Last Admin: 08/18/18 10:48 Dose: 250 mg Collagenase (Santyl -) 1 applic TP DAILY [facility] Last Admin: 08/18/18 10:48 Dose: 1 applic Diphenhydramine HCl (Benadryl -) 25 mg PO Q6H PRN PRN Reason: FOR ITCHING Last Admin: 08/17/18 22:06 Dose: 25 mg Duloxetine HCl (Cymbalta -) 20 mg PO DAILY [facility] Last Admin: 08/18/18 10:48 Dose: 20 mg Lactobacillus Acidophilus (Bacid -) 1 tab PO DAILY [facility] Last Admin: 08/18/18 10:45 Dose: 1 tab Mesalamine (Asacol Hd -) 800 mg PO TID [facility] Last Admin: 08/18/18 06:33 Dose: 800 mg Tenofovir Disoproxil Fumarate (Viread -) 300 mg PO Th [facility] Last Admin: 08/17/18 18:01 Dose: 300 mg - Objective Vital Signs: Vital Signs Temperature 98.4 F 08/18/18 10:00 Pulse Rate 89 08/18/18 10:00 Respiratory Rate 18 08/18/18 10:00 Blood Pressure 133/79 08/18/18 10:00 O2 Sat by Pulse Oximetry (%) 100 08/17/18 21:00 Constitutional: Yes: No Distress, Calm Cardiovascular: Yes: Regular Rate and Rhythm Respiratory: Yes: Regular, CTA Bilaterally Gastrointestinal: Yes: Normal Bowel Sounds, Soft Musculoskeletal: Yes: Other Extremities: Yes: Other Wound/Incision: Yes: Dressing Dry and Intact Neurological: Yes: Alert, Oriented Psychiatric: Yes: Alert, Oriented Labs: CBC, BMP 08/17/18 11:15 08/17/18 11:15 INR, PTT INR 1.01 (0.83-1.09) 07/24/18 08:30 Assessment/Plan Problem List - Problems (1) Acute diarrhea Code(s): R19.7 - DIARRHEA, UNSPECIFIED (2) Bilateral pressure ulcer of feet Code(s): L89.899 - PRESSURE ULCER OF OTHER SITE, UNSPECIFIED STAGE (3) C. difficile colitis Code(s): A04.72 - ENTEROCOLITIS D/T CLOSTRIDIUM DIFFICILE, NOT SPCF RECUR (4) Chronic diarrhea Code(s): K52.9 - NONINFECTIVE GASTROENTERITIS AND COLITIS, UNSPECIFIED (5) Diabetic foot ulcer Code(s): E11.621 - TYPE 2 DIABETES MELLITUS WITH FOOT ULCER; L97.509 - NON- PRESSURE CHRONIC ULCER OTH PRT UNSP FOOT W UNSP SEVERITY Qualifiers: Diabetic foot ulcer location: heel Diabetes mellitus type: other specified (including JADON) Laterality: unspecified laterality Non-pressure ulcer stage : unspecified non-pressure ulcer stage Qualified Code(s): E13.621 - Other specified diabetes mellitus with foot ulcer; L97.409 - Non-pressure chronic ulcer of unspecified heel and midfoot with unspecified severity (6) ESRD (end stage renal disease) Code(s): N18.6 - END STAGE RENAL DISEASE (7) Generalized weakness Code(s): R53.1 - WEAKNESS (8) Sacral decubitus ulcer Code(s): L89.159 - PRESSURE ULCER OF SACRAL REGION, UNSPECIFIED STAGE 9 left heel wound plan will change to oral abx complete the course then wound care rest as per the team
--- NOTE | 2018-08-18 18:31 | PN ---
Progress Note, Physician History of Present Illness: Pt seen and examined at bedside. He is awake and alert. He does not want to get HD tomorrow but agrees for Tuesday. - Current Medication List Current Medications: Active Medications Amoxicillin/Clavulanate Potassium (Augmentin - 250mg Tablet) 1 tab PO BID@0800, 1730 [facility] Last Admin: 08/18/18 17:46 Dose: 1 tab Calamine (Calamine 8% Topical Lotion -) 1 applic TP QID PRN PRN Reason: FOR ITCHING Calcium Acetate (Phoslo -) 1,334 mg PO TIDCM [facility] Last Admin: 08/18/18 17:44 Dose: Not Given Cefuroxime Axetil (Ceftin -) 250 mg PO DAILY [facility] Last Admin: 08/18/18 10:48 Dose: 250 mg Collagenase (Santyl -) 1 applic TP DAILY [facility] Last Admin: 08/18/18 10:48 Dose: 1 applic Diphenhydramine HCl (Benadryl -) 25 mg PO Q6H PRN PRN Reason: FOR ITCHING Last Admin: 08/17/18 22:06 Dose: 25 mg Duloxetine HCl (Cymbalta -) 20 mg PO DAILY [facility] Last Admin: 08/18/18 10:48 Dose: 20 mg Lactobacillus Acidophilus (Bacid -) 1 tab PO DAILY [facility] Last Admin: 08/18/18 10:45 Dose: 1 tab Mesalamine (Asacol Hd -) 800 mg PO TID [facility] Last Admin: 08/18/18 14:56 Dose: 800 mg Tenofovir Disoproxil Fumarate (Viread -) 300 mg PO Th [facility] Last Admin: 08/17/18 18:01 Dose: 300 mg - Objective Vital Signs: Vital Signs Temperature 98.4 F 08/18/18 15:35 Pulse Rate 91 H 08/18/18 15:35 Respiratory Rate 18 08/18/18 15:35 Blood Pressure 145/91 08/18/18 15:35 O2 Sat by Pulse Oximetry (%) 100 08/18/18 09:00 Constitutional: Yes: Calm Eyes: Yes: Conjunctiva Clear HENT: Yes: Atraumatic Neck: Yes: Supple Cardiovascular: Yes: S1, S2 Respiratory: Yes: CTA Bilaterally Gastrointestinal: Yes: Soft Genitourinary: Yes: Incontinence Musculoskeletal: Yes: WNL Edema: No Neurological: Yes: Oriented Psychiatric: Yes: Oriented Labs: CBC, BMP 08/17/18 11:15 08/17/18 11:15 INR, PTT INR 1.01 (0.83-1.09) 07/24/18 08:30 Problem List - Problems (1) ESRD (end stage renal disease) Code(s): N18.6 - END STAGE RENAL DISEASE Assessment/Plan Current Medications Generic Name Dose Route Start Last Admin Trade Name Freq PRN Reason Stop Dose Admin Amoxicillin/Clavulanate Potassium 1 tab 08/16/18 17:30 08/18/18 17:46 Augmentin - 250mg Tablet PO 1 tab BID@0800,1730 IRVIN Administration Calamine 1 applic 08/17/18 13:47 Calamine 8% Topical Lotion - TP QID PRN FOR ITCHING Calcium Acetate 1,334 mg 08/10/18 17:30 08/18/18 17:44 Phoslo - PO Not Given TIDCM IRVIN Cefuroxime Axetil 250 mg 08/16/18 14:45 08/18/18 10:48 Ceftin - PO 250 mg DAILY [facility] Administration Collagenase 1 applic 08/11/18 10:00 08/18/18 10:48 Santyl - TP 1 applic DAILY [facility]VIN Administration Diphenhydramine HCl 25 mg 08/10/18 17:16 08/17/18 22:06 Benadryl - PO 25 mg Q6H PRN Administration FOR ITCHING Duloxetine HCl 20 mg 08/11/18 10:00 08/18/18 10:48 Cymbalta - PO 20 mg DAILY [facility]IN Administration Lactobacillus Acidophilus 1 tab 08/11/18 10:00 08/18/18 10:45 Bacid - PO 1 tab DAILY [facility]IN Administration Mesalamine 800 mg 08/10/18 14:00 08/18/18 14:56 Asacol Hd - PO 800 mg TID IRVIN Administration Tenofovir Disoproxil Fumarate 300 mg 08/17/18 14:00 08/17/18 18:01 Viread - PO 300 mg Th IRVIN Administration Impression 1. ESRD 2. anemia 3. hypokalemia 4. Hep B 5. diarrhea 6. depression 7. non-compliance with HD 8. acidosis - metabolic 9. hypocalcemia 10. hearing loss 11. sepsis Plan - pt for HD on Tuesday - discharge planning - diarrhea is improved - encourage PO intake - wound care to leg - will follow
[2018-08-19] MEDS: BANATROL PLUS POWDER PACKET PO SCH ×3 (06:03→21:09)
[2018-08-19] MEDS: MESALAMINE 800 MG TABLET.DR PO SCH ×3 (06:11→21:13)
[2018-08-19] MEDS: CALCIUM ACETATE 667 MG CAPSULE (FP) PO SCH ×3 (08:12→18:18)
[2018-08-19] MEDS: AMOX TR/POT CLAV 250MG/125MG TABLETS PO SCH ×2 (09:06→19:38)
[2018-08-19] MEDS: LACTOBACILLUS ACIDOPHILUS 1 TABLET PO SCH (10:07)
[2018-08-19] MEDS: CEFUROXIME AXETIL 250 MG TABLET PO SCH (10:07)
[2018-08-19] MEDS: DULoxetine HCL 20 MG CAPSULE.DR (FP) PO SCH (10:08)
[2018-08-19] MEDS: COLLAGENASE CLOSTRIDIUM HIST. 30 GRAMS TUBE TP SCH (12:12)
--- NOTE | 2018-08-19 12:14 | PN ---
Progress Note, Physician History of Present Illness: Pt seen and examined. Events noted. States he has loose BMs after meals but not continuously. Denies abd pain or any other specific complaints. - Current Medication List Current Medications: Active Medications Amoxicillin/Clavulanate Potassium (Augmentin - 250mg Tablet) 1 tab PO BID@0800, 1730 [facility] Last Admin: 08/18/18 17:46 Dose: 1 tab Calamine (Calamine 8% Topical Lotion -) 1 applic TP QID PRN PRN Reason: FOR ITCHING Calcium Acetate (Phoslo -) 1,334 mg PO TIDCM [facility] Last Admin: 08/18/18 17:44 Dose: Not Given Cefuroxime Axetil (Ceftin -) 250 mg PO DAILY [facility] Last Admin: 08/18/18 10:48 Dose: 250 mg Collagenase (Santyl -) 1 applic TP DAILY [facility] Last Admin: 08/18/18 10:48 Dose: 1 applic Diphenhydramine HCl (Benadryl -) 25 mg PO Q6H PRN PRN Reason: FOR ITCHING Last Admin: 08/17/18 22:06 Dose: 25 mg Duloxetine HCl (Cymbalta -) 20 mg PO DAILY [facility] Last Admin: 08/18/18 10:48 Dose: 20 mg Lactobacillus Acidophilus (Bacid -) 1 tab PO DAILY [facility] Last Admin: 08/18/18 10:45 Dose: 1 tab Mesalamine (Asacol Hd -) 800 mg PO TID [facility] Last Admin: 08/19/18 06:11 Dose: 800 mg Tenofovir Disoproxil Fumarate (Viread -) 300 mg PO Th [facility] Last Admin: 08/17/18 18:01 Dose: 300 mg - Objective Vital Signs: Vital Signs Temperature 97.7 F 08/19/18 06:00 Pulse Rate 96 H 08/19/18 06:00 Respiratory Rate 18 08/19/18 06:00 Blood Pressure 131/67 08/19/18 06:00 O2 Sat by Pulse Oximetry (%) 98 08/18/18 21:00 Constitutional: Yes: No Distress, Calm Cardiovascular: Yes: Regular Rate and Rhythm Respiratory: Yes: Regular Gastrointestinal: Yes: Normal Bowel Sounds, Soft Integumentary: Yes: WNL Wound/Incision: Yes: Dressing Dry and Intact (b/l feet) Neurological: Yes: Alert Labs: CBC, BMP 08/17/18 11:15 08/17/18 11:15 INR, PTT INR 1.01 (0.83-1.09) 07/24/18 08:30 Problem List - Problems (1) Bilateral pressure ulcer of feet Code(s): L89.899 - PRESSURE ULCER OF OTHER SITE, UNSPECIFIED STAGE (2) C. difficile colitis Code(s): A04.72 - ENTEROCOLITIS D/T CLOSTRIDIUM DIFFICILE, NOT SPCF RECUR (3) Chronic diarrhea Code(s): K52.9 - NONINFECTIVE GASTROENTERITIS AND COLITIS, UNSPECIFIED (4) ESRD (end stage renal disease) Code(s): N18.6 - END STAGE RENAL DISEASE (5) Osteomyelitis Code(s): M86.9 - OSTEOMYELITIS, UNSPECIFIED Qualifiers: Osteomyelitis type: unspecified type Osteomyelitis location: unspecified site Qualified Code(s): M86.9 - Osteomyelitis, unspecified (6) Recurrent Clostridium difficile diarrhea Code(s): A04.71 - ENTEROCOLITIS DUE TO CLOSTRIDIUM DIFFICILE, RECURRENT Assessment/Plan 52 y.o. male with Hx of C. diff colitis with chronic diarrhea, lactic acidosis, leukocytosis Chronic Diarrhea s/p colonoscopy - no colitis/pseudomembranes, Cdif PCR negative Hx of C. diff colitis Leukocytosis - resolved Lt foot infected ulcer DM ESRD on HD Hearing loss - improved -- switched to oral antibiotics -- cont. wound care pt afebrile, wbc normal
--- NOTE | 2018-08-19 13:21 | PN ---
Progress Note (short form) - Note Progress Note: Pt seen/ examined comfortable denies pain says still has soft stools Vital Signs Temp 97.7 F 08/19/18 06:00 Pulse 96 H 08/19/18 06:00 Resp 18 08/19/18 06:00 BP 131/67 08/19/18 06:00 Pulse Ox 98 08/18/18 21:00 Intake & Output 08/18/18 08/19/18 08/19/18 23:59 11:59 23:59 Intake Total 630 200 Balance 630 200 Intake: Oral 630 200 Other: Voiding Method Incontinent Incontinent # Unmeasured Voids Void 1 Bowel Movement No Yes # Bowel Movements 1 Active Medications Amoxicillin/Clavulanate Potassium (Augmentin - 250mg Tablet) 1 tab PO BID@0800, 1730 [facility] Last Admin: 08/18/18 17:46 Dose: 1 tab Calamine (Calamine 8% Topical Lotion -) 1 applic TP QID PRN PRN Reason: FOR ITCHING Calcium Acetate (Phoslo -) 1,334 mg PO TIDCM [facility] Last Admin: 08/18/18 17:44 Dose: Not Given Cefuroxime Axetil (Ceftin -) 250 mg PO DAILY [facility] Last Admin: 08/18/18 10:48 Dose: 250 mg Collagenase (Santyl -) 1 applic TP DAILY [facility] Last Admin: 08/18/18 10:48 Dose: 1 applic Diphenhydramine HCl (Benadryl -) 25 mg PO Q6H PRN PRN Reason: FOR ITCHING Last Admin: 08/17/18 22:06 Dose: 25 mg Duloxetine HCl (Cymbalta -) 20 mg PO DAILY [facility] Last Admin: 08/18/18 10:48 Dose: 20 mg Lactobacillus Acidophilus (Bacid -) 1 tab PO DAILY [facility] Last Admin: 08/18/18 10:45 Dose: 1 tab Mesalamine (Asacol Hd -) 800 mg PO TID [facility] Last Admin: 08/19/18 06:11 Dose: 800 mg Tenofovir Disoproxil Fumarate (Viread -) 300 mg PO Th [facility] Last Admin: 08/17/18 18:01 Dose: 300 mg CBC, BMP 08/17/18 11:15 08/17/18 11:15 Physical . Constitutional: Yes: No Distress,calm/ comfortable. Eyes: Yes: Conjunctiva Clear Neck: Yes: Supple. no jvd. Cardiovascular: Yes: Regular Rate and Rhythm Gastrointestinal: Yes: Normal Bowel Sounds, Soft, not tender. Integumentary: Yes: Other (heel ulcer-- wound care/ i/d following -- dressing + Neurological: Yes: Alert/ awake. calm Assessment/Plan clinically stable chronic issues on asacol better continue with local wound care awaiting str placement continue present care will follow. discussed with nursing staff. Problem List - Problems (1) Acute diarrhea Code(s): R19.7 - DIARRHEA, UNSPECIFIED (2) Bilateral pressure ulcer of feet Code(s): L89.899 - PRESSURE ULCER OF OTHER SITE, UNSPECIFIED STAGE (3) ESRD (end stage renal disease) Code(s): N18.6 - END STAGE RENAL DISEASE
[2018-08-19] MEDS ORDERED: SODIUM CHLORIDE 250 ML IV PRN (22:48)
--- NOTE | 2018-08-19 22:52 | PN ---
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 ESRD 2. anemia 3. hypokalemia 4. Hep B 5. diarrhea 6. depression 7. non-compliance with HD 8. acidosis - metabolic 9. hypocalcemia Current Medications Amoxicillin/Clavulanate Potassium (Augmentin - 250mg Tablet) 1 tab PO BID@0800, 1730 [facility] Last Admin: 08/19/18 19:38 Dose: Not Given Calamine (Calamine 8% Topical Lotion -) 1 applic TP QID PRN PRN Reason: FOR ITCHING Calcium Acetate (Phoslo -) 1,334 mg PO TIDCM [facility] Last Admin: 08/19/18 18:18 Dose: Not Given Cefuroxime Axetil (Ceftin -) 250 mg PO DAILY [facility] Last Admin: 08/19/18 10:07 Dose: 250 mg Collagenase (Santyl -) 1 applic TP DAILY [facility] Last Admin: 08/19/18 12:12 Dose: 1 applic Diphenhydramine HCl (Benadryl -) 25 mg PO Q6H PRN PRN Reason: FOR ITCHING Last Admin: 08/17/18 22:06 Dose: 25 mg Duloxetine HCl (Cymbalta -) 20 mg PO DAILY [facility] Last Admin: 08/19/18 10:08 Dose: 20 mg Sodium Chloride (Normal Saline -) 250 mls @ 3,000 mls/hr IV PRN PRN PRN Reason: Hypotension during Dialysis Stop: 08/20/18 22:48 Lactobacillus Acidophilus (Bacid -) 1 tab PO DAILY [facility] Last Admin: 08/19/18 10:07 Dose: 1 tab Mesalamine (Asacol Hd -) 800 mg PO TID [facility] Last Admin: 08/19/18 21:13 Dose: 800 mg Tenofovir Disoproxil Fumarate (Viread -) 300 mg PO Th [facility] Last Admin: 08/17/18 18:01 Dose: 300 mg Last Vital Signs Temp Pulse Resp BP Pulse Ox 98.1 F 97 H 18 147/87 98 08/19/18 15:58 08/19/18 15:58 08/19/18 15:58 08/19/18 15:58 08/19/18 09:00 Lungs clear Heart reg Abd soft Ext no edema CBC, BMP 08/17/18 11:15 08/17/18 11:15 IMP- Plan- for hd on tuesday due to holiday schedule modification
[2018-08-20] MEDS: BANATROL PLUS POWDER PACKET PO SCH ×3 (06:21→22:37)
[2018-08-20] MEDS ORDERED: PT OWN MED DRAWER 7, Y5N ONE ×2 (06:24→21:19)
[2018-08-20] MEDS: MESALAMINE 800 MG TABLET.DR PO SCH ×3 (06:52→22:38)
[2018-08-20] MEDS: CALCIUM ACETATE 667 MG CAPSULE (FP) PO SCH ×3 (08:34→16:56)
[2018-08-20] MEDS: AMOX TR/POT CLAV 250MG/125MG TABLETS PO SCH ×2 (08:34→16:56)
[2018-08-20] MEDS: LACTOBACILLUS ACIDOPHILUS 1 TABLET PO SCH (10:33)
[2018-08-20] MEDS: DULoxetine HCL 20 MG CAPSULE.DR (FP) PO SCH (10:35)
[2018-08-20] MEDS: CEFUROXIME AXETIL 250 MG TABLET PO SCH (10:35)
[2018-08-20] MEDS: COLLAGENASE CLOSTRIDIUM HIST. 30 GRAMS TUBE TP SCH (10:36)
--- NOTE | 2018-08-20 11:29 | PN ---
Progress Note, Physician History of Present Illness: No new events noted. Pt without specific complaints. Remains clinically the same. - Current Medication List Current Medications: Active Medications Amoxicillin/Clavulanate Potassium (Augmentin - 250mg Tablet) 1 tab PO BID@0800, 1730 [facility] Last Admin: 08/20/18 08:34 Dose: 1 tab Calamine (Calamine 8% Topical Lotion -) 1 applic TP QID PRN PRN Reason: FOR ITCHING Calcium Acetate (Phoslo -) 1,334 mg PO TIDCM [facility] Last Admin: 08/20/18 08:34 Dose: Not Given Cefuroxime Axetil (Ceftin -) 250 mg PO DAILY [facility] Last Admin: 08/20/18 10:35 Dose: 250 mg Collagenase (Santyl -) 1 applic TP DAILY [facility] Last Admin: 08/20/18 10:36 Dose: 1 applic Diphenhydramine HCl (Benadryl -) 25 mg PO Q6H PRN PRN Reason: FOR ITCHING Last Admin: 08/17/18 22:06 Dose: 25 mg Duloxetine HCl (Cymbalta -) 20 mg PO DAILY [facility] Last Admin: 08/20/18 10:35 Dose: 20 mg Sodium Chloride (Normal Saline -) 250 mls @ 3,000 mls/hr IV PRN PRN PRN Reason: Hypotension during Dialysis Stop: 08/20/18 22:48 Lactobacillus Acidophilus (Bacid -) 1 tab PO DAILY [facility] Last Admin: 08/20/18 10:33 Dose: 1 tab Mesalamine (Asacol Hd -) 800 mg PO TID [facility] Last Admin: 08/20/18 06:52 Dose: Not Given Tenofovir Disoproxil Fumarate (Viread -) 300 mg PO Th [facility] Last Admin: 08/17/18 18:01 Dose: 300 mg - Objective Vital Signs: Vital Signs Temperature 98.4 F 08/20/18 07:10 Pulse Rate 92 H 08/20/18 10:05 Respiratory Rate 18 08/20/18 10:05 Blood Pressure 145/81 08/20/18 10:05 O2 Sat by Pulse Oximetry (%) 98 08/19/18 21:00 Constitutional: Yes: No Distress, Calm Cardiovascular: Yes: Regular Rate and Rhythm Respiratory: Yes: Regular Gastrointestinal: Yes: Normal Bowel Sounds, Soft Wound/Incision: Yes: Dressing Dry and Intact Labs: CBC, BMP 08/17/18 11:15 08/17/18 11:15 INR, PTT INR 1.01 (0.83-1.09) 07/24/18 08:30 Microbiology 08/03/18 22:00 Stool Salmonella/Shigella Culture - Final NO GROWTH OF SALMONELLA OR SHIGELLA SPECIES OBTAINED 08/03/18 22:00 Stool Campylobacter Culture - Final NO GROWTH OF CAMPYLOBACTER SPECIES OBTAINED 08/03/18 22:00 Stool Yersinia Culture - Final NO GROWTH OF YERSINIA SPECIES OBTAINED 08/03/18 22:00 Stool Vibrio Culture - Final NO GROWTH OF VIBRIO SPECIES OBTAINED 08/03/18 22:00 Stool Escherichia coli 0157 Culture - Final NO GROWTH OF E COLI 0157 OBTAINED 08/01/18 21:30 Blood - Peripheral Venous Blood Culture - Final NO GROWTH AFTER 5 DAYS INCUBATION 08/01/18 20:00 Blood - Peripheral Venous Blood Culture - Final NO GROWTH AFTER 5 DAYS INCUBATION 08/01/18 20:45 Ankle - Left Gram Stain - Final 08/01/18 20:45 Ankle - Left Wound Culture - Final Citrobacter Freundii Complex Klebsiella Oxytoca Morganella Morganii Mr S Aureus Morganella Morganii#2 08/02/18 06:15 Stool Clostridium difficile (PCR) - Final 08/01/18 01:15 Stool Clostridium difficile Antigen (GEM) - Final 08/01/18 01:15 Stool Clostridium difficile Toxin Assay - Final 07/25/18 13:55 Foot - Left Heel Gram Stain - Final 07/25/18 13:55 Foot - Left Heel Wound Culture - Final Citrobacter Freundii Complex Pseudomonas Aeruginosa Staphylococcus Coagulase Neg Mr S Aureus Morganella Morganii Enterococcus Faecalis 07/24/18 08:30 Blood - Peripheral Venous Blood Culture - Final NO GROWTH AFTER 5 DAYS INCUBATION 07/24/18 08:30 Blood - Peripheral Venous Blood Culture - Final NO GROWTH AFTER 5 DAYS INCUBATION 07/24/18 08:30 Stool Clostridium difficile Antigen (GEM) - Final 07/24/18 08:30 Stool Clostridium difficile Toxin Assay - Final Problem List - Problems (1) Bilateral pressure ulcer of feet Code(s): L89.899 - PRESSURE ULCER OF OTHER SITE, UNSPECIFIED STAGE (2) C. difficile colitis Code(s): A04.72 - ENTEROCOLITIS D/T CLOSTRIDIUM DIFFICILE, NOT SPCF RECUR (3) Chronic diarrhea Code(s): K52.9 - NONINFECTIVE GASTROENTERITIS AND COLITIS, UNSPECIFIED (4) ESRD (end stage renal disease) Code(s): N18.6 - END STAGE RENAL DISEASE (5) Osteomyelitis Code(s): M86.9 - OSTEOMYELITIS, UNSPECIFIED Qualifiers: Osteomyelitis type: unspecified type Osteomyelitis location: unspecified site Qualified Code(s): M86.9 - Osteomyelitis, unspecified (6) Recurrent Clostridium difficile diarrhea Code(s): A04.71 - ENTEROCOLITIS DUE TO CLOSTRIDIUM DIFFICILE, RECURRENT Assessment/Plan 52 y.o. male with Hx of C. diff colitis with chronic diarrhea, lactic acidosis, leukocytosis Chronic Diarrhea s/p colonoscopy - no colitis/pseudomembranes, Cdif PCR negative Previous Hx of C. diff colitis - treated Leukocytosis - resolved Lt foot infected ulcer DM ESRD on HD Hearing loss - improved -- stool studies neg. -- on oral antibiotics -- cont. wound care awaiting placement
--- NOTE | 2018-08-20 12:01 | PN ---
Progress Note (short form) - Note Progress Note: comfortable had dialysis today mood somewhat depressed. still says has diarrhea-- denies pain afebrile Vital Signs Temp 98.4 F 08/20/18 07:10 Pulse 92 H 08/20/18 10:05 Resp 18 08/20/18 10:05 BP 145/81 08/20/18 10:05 Pulse Ox 98 08/19/18 21:00 Intake & Output 08/19/18 08/20/18 08/20/18 23:59 11:59 23:59 Other: Voiding Method Incontinent Incontinent # Unmeasured Voids Void 0 1 Bowel Movement Yes Yes # Bowel Movements 3 1 Active Medications Amoxicillin/Clavulanate Potassium (Augmentin - 250mg Tablet) 1 tab PO BID@0800, 1730 [facility] Last Admin: 08/20/18 08:34 Dose: 1 tab Calamine (Calamine 8% Topical Lotion -) 1 applic TP QID PRN PRN Reason: FOR ITCHING Calcium Acetate (Phoslo -) 1,334 mg PO TIDCM [facility] Last Admin: 08/20/18 11:46 Dose: Not Given Cefuroxime Axetil (Ceftin -) 250 mg PO DAILY [facility] Last Admin: 08/20/18 10:35 Dose: 250 mg Collagenase (Santyl -) 1 applic TP DAILY [facility] Last Admin: 08/20/18 10:36 Dose: 1 applic Diphenhydramine HCl (Benadryl -) 25 mg PO Q6H PRN PRN Reason: FOR ITCHING Last Admin: 08/17/18 22:06 Dose: 25 mg Duloxetine HCl (Cymbalta -) 20 mg PO DAILY [facility] Last Admin: 08/20/18 10:35 Dose: 20 mg Sodium Chloride (Normal Saline -) 250 mls @ 3,000 mls/hr IV PRN PRN PRN Reason: Hypotension during Dialysis Stop: 08/20/18 22:48 Lactobacillus Acidophilus (Bacid -) 1 tab PO DAILY [facility] Last Admin: 08/20/18 10:33 Dose: 1 tab Mesalamine (Asacol Hd -) 800 mg PO TID [facility] Last Admin: 08/20/18 06:52 Dose: Not Given Tenofovir Disoproxil Fumarate (Viread -) 300 mg PO Th [facility] Last Admin: 08/17/18 18:01 Dose: 300 mg CBC, BMP 08/17/18 11:15 08/17/18 11:15 Physical . Constitutional: Yes: No Distress,calm/ comfortable. Eyes: Yes: Conjunctiva Clear Neck: Yes: Supple. no jvd. Cardiovascular: Yes: Regular Rate and Rhythm Gastrointestinal: Yes: Normal Bowel Sounds, Soft, not tender. Integumentary: Yes: Other (heel ulcer-- wound care/ i/d following -- dressing + Neurological: Yes: Alert/ awake. calm Assessment/Plan clinically stable chronic issues on asacol continue with local wound care awaiting str placement-- Per child support case officer -- issues with insurance Medically not safe to discharge home continue present care will follow. discussed with nursing staff also. Problem List - Problems (1) Acute diarrhea Code(s): R19.7 - DIARRHEA, UNSPECIFIED (2) Bilateral pressure ulcer of feet Code(s): L89.899 - PRESSURE ULCER OF OTHER SITE, UNSPECIFIED STAGE (3) ESRD (end stage renal disease) Code(s): N18.6 - END STAGE RENAL DISEASE
--- NOTE | 2018-08-20 19:40 | PN ---
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 ESRD 2. anemia 3. hypokalemia 4. Hep B 5. diarrhea 6. depression 7. non-compliance with HD 8. acidosis - metabolic 9. hypocalcemia Current Medications Amoxicillin/Clavulanate Potassium (Augmentin - 250mg Tablet) 1 tab PO BID@0800, 1730 [facility] Last Admin: 08/20/18 16:56 Dose: 1 tab Calamine (Calamine 8% Topical Lotion -) 1 applic TP QID PRN PRN Reason: FOR ITCHING Calcium Acetate (Phoslo -) 1,334 mg PO TIDCM [facility] Last Admin: 08/20/18 16:56 Dose: Not Given Cefuroxime Axetil (Ceftin -) 250 mg PO DAILY [facility] Last Admin: 08/20/18 10:35 Dose: 250 mg Collagenase (Santyl -) 1 applic TP DAILY [facility] Last Admin: 08/20/18 10:36 Dose: 1 applic Diphenhydramine HCl (Benadryl -) 25 mg PO Q6H PRN PRN Reason: FOR ITCHING Last Admin: 08/17/18 22:06 Dose: 25 mg Duloxetine HCl (Cymbalta -) 20 mg PO DAILY [facility] Last Admin: 08/20/18 10:35 Dose: 20 mg Sodium Chloride (Normal Saline -) 250 mls @ 3,000 mls/hr IV PRN PRN PRN Reason: Hypotension during Dialysis Stop: 08/20/18 22:48 Lactobacillus Acidophilus (Bacid -) 1 tab PO DAILY [facility] Last Admin: 08/20/18 10:33 Dose: 1 tab Mesalamine (Asacol Hd -) 800 mg PO TID [facility] Last Admin: 08/20/18 14:56 Dose: 800 mg Tenofovir Disoproxil Fumarate (Viread -) 300 mg PO Th [facility] Last Admin: 08/17/18 18:01 Dose: 300 mg Last Vital Signs Temp Pulse Resp BP Pulse Ox 98.2 F 100 H 20 152/85 99 08/20/18 18:00 08/20/18 18:00 08/20/18 18:00 08/20/18 18:00 08/20/18 09:00 Lungs clear Heart reg Abd soft Ext no edema CBC, BMP 08/17/18 11:15 08/17/18 11:15 IMP- esrd dm pvd Plan- next hd on tuesday
[2018-08-21] MEDS: BANATROL PLUS POWDER PACKET PO SCH ×3 (06:28→22:10)
[2018-08-21] MEDS: MESALAMINE 800 MG TABLET.DR PO SCH ×3 (06:29→22:10)
[2018-08-21] MEDS: AMOX TR/POT CLAV 250MG/125MG TABLETS PO SCH ×2 (08:49→16:58)
[2018-08-21] MEDS: CALCIUM ACETATE 667 MG CAPSULE (FP) PO SCH ×3 (09:49→16:58)
[2018-08-21] MEDS: LACTOBACILLUS ACIDOPHILUS 1 TABLET PO SCH (09:50)
[2018-08-21] MEDS: DULoxetine HCL 20 MG CAPSULE.DR (FP) PO SCH (09:50)
[2018-08-21] MEDS: CEFUROXIME AXETIL 250 MG TABLET PO SCH (09:50)
[2018-08-21] MEDS: COLLAGENASE CLOSTRIDIUM HIST. 30 GRAMS TUBE TP SCH (09:50)
[2018-08-21 11:47] VITALS: BMI 24.1
--- NOTE | 2018-08-21 11:59 | PN ---
Progress Note, Physician History of Present Illness: stable refuses to eat thinks his dirrhoea will increase - Current Medication List Current Medications: Active Medications Amoxicillin/Clavulanate Potassium (Augmentin - 250mg Tablet) 1 tab PO BID@0800, 1730 [facility] Last Admin: 08/21/18 08:49 Dose: 1 tab Calamine (Calamine 8% Topical Lotion -) 1 applic TP QID PRN PRN Reason: FOR ITCHING Calcium Acetate (Phoslo -) 1,334 mg PO TIDCM [facility] Last Admin: 08/21/18 11:38 Dose: Not Given Cefuroxime Axetil (Ceftin -) 250 mg PO DAILY [facility] Last Admin: 08/21/18 09:50 Dose: 250 mg Collagenase (Santyl -) 1 applic TP DAILY [facility] Last Admin: 08/21/18 09:50 Dose: 1 applic Diphenhydramine HCl (Benadryl -) 25 mg PO Q6H PRN PRN Reason: FOR ITCHING Last Admin: 08/17/18 22:06 Dose: 25 mg Duloxetine HCl (Cymbalta -) 20 mg PO DAILY [facility] Last Admin: 08/21/18 09:50 Dose: 20 mg Sodium Chloride (Normal Saline -) 250 mls @ 3,000 mls/hr IV PRN PRN PRN Reason: Hypotension during Dialysis Stop: 08/20/18 22:48 Lactobacillus Acidophilus (Bacid -) 1 tab PO DAILY [facility] Last Admin: 08/21/18 09:50 Dose: 1 tab Mesalamine (Asacol Hd -) 800 mg PO TID [facility] Last Admin: 08/21/18 06:29 Dose: 800 mg Tenofovir Disoproxil Fumarate (Viread -) 300 mg PO Th [facility] Last Admin: 08/17/18 18:01 Dose: 300 mg - Objective Vital Signs: Vital Signs Temperature 98.0 F 08/21/18 07:00 Pulse Rate 97 H 08/21/18 07:00 Respiratory Rate 20 08/21/18 07:00 Blood Pressure 141/85 08/21/18 07:00 O2 Sat by Pulse Oximetry (%) 99 08/20/18 21:00 Constitutional: Yes: No Distress, Calm Cardiovascular: Yes: Regular Rate and Rhythm Respiratory: Yes: Regular, CTA Bilaterally Gastrointestinal: Yes: Normal Bowel Sounds, Soft Musculoskeletal: Yes: WNL Extremities: Yes: Other Wound/Incision: Yes: Dressing Dry and Intact Neurological: Yes: Alert, Oriented Psychiatric: Yes: Alert, Oriented Labs: CBC, BMP 08/17/18 11:15 08/17/18 11:15 INR, PTT INR 1.01 (0.83-1.09) 07/24/18 08:30 Assessment/Plan Assessment/Plan Problem List - Problems (1) Acute diarrhea Code(s): R19.7 - DIARRHEA, UNSPECIFIED (2) Bilateral pressure ulcer of feet Code(s): L89.899 - PRESSURE ULCER OF OTHER SITE, UNSPECIFIED STAGE (3) C. difficile colitis Code(s): A04.72 - ENTEROCOLITIS D/T CLOSTRIDIUM DIFFICILE, NOT SPCF RECUR (4) Chronic diarrhea Code(s): K52.9 - NONINFECTIVE GASTROENTERITIS AND COLITIS, UNSPECIFIED (5) Diabetic foot ulcer Code(s): E11.621 - TYPE 2 DIABETES MELLITUS WITH FOOT ULCER; L97.509 - NON- PRESSURE CHRONIC ULCER OTH PRT UNSP FOOT W UNSP SEVERITY Qualifiers: Diabetic foot ulcer location: heel Diabetes mellitus type: other specified (including JADON) Laterality: unspecified laterality Non-pressure ulcer stage : unspecified non-pressure ulcer stage Qualified Code(s): E13.621 - Other specified diabetes mellitus with foot ulcer; L97.409 - Non-pressure chronic ulcer of unspecified heel and midfoot with unspecified severity (6) ESRD (end stage renal disease) Code(s): N18.6 - END STAGE RENAL DISEASE (7) Generalized weakness Code(s): R53.1 - WEAKNESS (8) Sacral decubitus ulcer Code(s): L89.159 - PRESSURE ULCER OF SACRAL REGION, UNSPECIFIED STAGE 9 left heel wound 10 osteo of the heel plan finish course of oral abx wound care nutrition rest as per the team
--- NOTE | 2018-08-21 12:33 | PN ---
Progress Note (short form) - Note Progress Note: pt seen/ examined comfortable mood remains depressed Diarrhea + denies pain afebrile i/d f/u noted - discussed Vital Signs Temp 98.0 F 08/21/18 07:00 Pulse 97 H 08/21/18 07:00 Resp 20 08/21/18 07:00 BP 141/85 08/21/18 07:00 Pulse Ox 99 08/20/18 21:00 Intake & Output 08/20/18 08/21/18 08/21/18 23:59 11:59 23:59 Intake Total 400 Balance 400 Intake: Oral 400 Other: Voiding Method Incontinent Incontinent # Unmeasured Voids Void 1 0 Bowel Movement Yes # Bowel Movements 2 Body Mass Index (BMI) 24.1 Active Medications Amoxicillin/Clavulanate Potassium (Augmentin - 250mg Tablet) 1 tab PO BID@0800, 1730 [facility] Last Admin: 08/21/18 08:49 Dose: 1 tab Calamine (Calamine 8% Topical Lotion -) 1 applic TP QID PRN PRN Reason: FOR ITCHING Calcium Acetate (Phoslo -) 1,334 mg PO TIDCM [facility] Last Admin: 08/21/18 11:38 Dose: Not Given Cefuroxime Axetil (Ceftin -) 250 mg PO DAILY [facility] Last Admin: 08/21/18 09:50 Dose: 250 mg Collagenase (Santyl -) 1 applic TP DAILY [facility] Last Admin: 08/21/18 09:50 Dose: 1 applic Diphenhydramine HCl (Benadryl -) 25 mg PO Q6H PRN PRN Reason: FOR ITCHING Last Admin: 08/17/18 22:06 Dose: 25 mg Duloxetine HCl (Cymbalta -) 20 mg PO DAILY [facility] Last Admin: 08/21/18 09:50 Dose: 20 mg Sodium Chloride (Normal Saline -) 250 mls @ 3,000 mls/hr IV PRN PRN PRN Reason: Hypotension during Dialysis Stop: 08/20/18 22:48 Lactobacillus Acidophilus (Bacid -) 1 tab PO DAILY [facility] Last Admin: 08/21/18 09:50 Dose: 1 tab Mesalamine (Asacol Hd -) 800 mg PO TID [facility] Last Admin: 08/21/18 06:29 Dose: 800 mg Tenofovir Disoproxil Fumarate (Viread -) 300 mg PO [facility] Last Admin: 08/17/18 18:01 Dose: 300 mg CBC, BMP 08/17/18 11:15 08/17/18 11:15 Physical . Constitutional: Yes: No Distress,/ comfortable. Eyes: Yes: Conjunctiva Clear Neck: Yes: Supple. no jvd. Cardiovascular: Yes: Regular Rate and Rhythm Gastrointestinal: Yes: Normal Bowel Sounds, Soft, not tender. Integumentary: Yes: Other (heel ulcer-- wound care/ i/d following -- dressing + Neurological: Yes: Alert/ awake. calm Assessment/Plan clinically stable chronic issues on asacol continue with local wound care awaiting str placement-- Per case planner -- issues with insurance Medically not safe to discharge home continue present care will follow. discussed with nursing staff also. trial of immodium Problem List - Problems (1) Acute diarrhea Code(s): R19.7 - DIARRHEA, UNSPECIFIED (2) Bilateral pressure ulcer of feet Code(s): L89.899 - PRESSURE ULCER OF OTHER SITE, UNSPECIFIED STAGE (3) ESRD (end stage renal disease) Code(s): N18.6 - END STAGE RENAL DISEASE Problem List - Problems (1) Acute diarrhea Code(s): R19.7 - DIARRHEA, UNSPECIFIED (2) Bilateral pressure ulcer of feet Code(s): L89.899 - PRESSURE ULCER OF OTHER SITE, UNSPECIFIED STAGE (3) ESRD (end stage renal disease) Code(s): N18.6 - END STAGE RENAL DISEASE
[2018-08-21] MEDS ORDERED: LOPERAMIDE HCL 2 MG CAPSULE PO PRN (12:35)
--- NOTE | 2018-08-21 16:32 | PN ---
Progress Note, Physician History of Present Illness: Pt seen and examined at bedside. He says he again has diarrhea. - Current Medication List Current Medications: Active Medications Amoxicillin/Clavulanate Potassium (Augmentin - 250mg Tablet) 1 tab PO BID@0800, 1730 [facility] Last Admin: 08/21/18 08:49 Dose: 1 tab Calamine (Calamine 8% Topical Lotion -) 1 applic TP QID PRN PRN Reason: FOR ITCHING Calcium Acetate (Phoslo -) 1,334 mg PO TIDCM [facility] Last Admin: 08/21/18 11:38 Dose: Not Given Cefuroxime Axetil (Ceftin -) 250 mg PO DAILY [facility] Last Admin: 08/21/18 09:50 Dose: 250 mg Collagenase (Santyl -) 1 applic TP DAILY [facility] Last Admin: 08/21/18 09:50 Dose: 1 applic Diphenhydramine HCl (Benadryl -) 25 mg PO Q6H PRN PRN Reason: FOR ITCHING Last Admin: 08/17/18 22:06 Dose: 25 mg Duloxetine HCl (Cymbalta -) 20 mg PO DAILY [facility] Last Admin: 08/21/18 09:50 Dose: 20 mg Sodium Chloride (Normal Saline -) 250 mls @ 3,000 mls/hr IV PRN PRN PRN Reason: Hypotension during Dialysis Stop: 08/20/18 22:48 Lactobacillus Acidophilus (Bacid -) 1 tab PO DAILY [facility] Last Admin: 08/21/18 09:50 Dose: 1 tab Loperamide HCl (Imodium -) 2 mg PO Q8H PRN PRN Reason: DIARRHEA Mesalamine (Asacol Hd -) 800 mg PO TID [facility] Last Admin: 08/21/18 06:29 Dose: 800 mg Tenofovir Disoproxil Fumarate (Viread -) 300 mg PO Th [facility] Last Admin: 08/17/18 18:01 Dose: 300 mg - Objective Vital Signs: Vital Signs Temperature 98.0 F 08/21/18 15:44 Pulse Rate 96 H 08/21/18 15:44 Respiratory Rate 20 08/21/18 15:44 Blood Pressure 130/78 08/21/18 15:44 O2 Sat by Pulse Oximetry (%) 99 08/20/18 21:00 Constitutional: Yes: Calm Eyes: Yes: Conjunctiva Clear HENT: Yes: Atraumatic Neck: Yes: Supple Cardiovascular: Yes: S1, S2 Respiratory: Yes: CTA Bilaterally Gastrointestinal: Yes: Normal Bowel Sounds, Soft Genitourinary: Yes: Incontinence Musculoskeletal: Yes: Muscle Weakness Edema: No Neurological: Yes: Oriented Psychiatric: Yes: Oriented Labs: CBC, BMP 08/17/18 11:15 08/17/18 11:15 INR, PTT INR 1.01 (0.83-1.09) 07/24/18 08:30 Problem List - Problems (1) ESRD (end stage renal disease) Code(s): N18.6 - END STAGE RENAL DISEASE Assessment/Plan Current Medications Generic Name Dose Route Start Last Admin Trade Name Freq PRN Reason Stop Dose Admin Amoxicillin/Clavulanate Potassium 1 tab 08/16/18 17:30 08/21/18 08:49 Augmentin - 250mg Tablet PO 1 tab BID@0800,1730 [facility] Administration Calamine 1 applic 08/17/18 13:47 Calamine 8% Topical Lotion - TP QID PRN FOR ITCHING Calcium Acetate 1,334 mg 08/10/18 17:30 08/21/18 11:38 Phoslo - PO Not Given TIDCM [facility] Cefuroxime Axetil 250 mg 08/16/18 14:45 08/21/18 09:50 Ceftin - PO 250 mg DAILY [facility] Administration Collagenase 1 applic 08/11/18 10:00 08/21/18 09:50 Santyl - TP 1 applic DAILY [facility] Administration Diphenhydramine HCl 25 mg 08/10/18 17:16 08/17/18 22:06 Benadryl - PO 25 mg Q6H PRN Administration FOR ITCHING Duloxetine HCl 20 mg 08/11/18 10:00 08/21/18 09:50 Cymbalta - PO 20 mg DAILY [facility] Administration Sodium Chloride 250 mls @ 3,000 mls/hr 08/19/18 22:48 Normal Saline - IV 08/20/18 22:48 PRN PRN Hypotension during Dialysis Lactobacillus Acidophilus 1 tab 08/11/18 10:00 08/21/18 09:50 Bacid - PO 1 tab DAILY [facility] Administration Loperamide HCl 2 mg 08/21/18 12:35 Imodium - PO Q8H PRN DIARRHEA Mesalamine 800 mg 08/10/18 14:00 08/21/18 06:29 Asacol Hd - PO 800 mg TID [facility] Administration Tenofovir Disoproxil Fumarate 300 mg 08/17/18 14:00 08/17/18 18:01 Viread - PO 300 mg Th [facility] Administration Impression 1. ESRD 2. anemia 3. hypokalemia 4. Hep B 5. diarrhea 6. depression 7. non-compliance with HD 8. acidosis - metabolic 9. hypocalcemia 10. hearing loss 11. sepsis Plan - pt dialyzed yesterday - next HD on Tuesday - check bmp if he agrees - encourage PO intake - wound care to leg - will follow
[2018-08-21] MEDS ORDERED: PT OWN MED DRAWER 7, Y5N ONE (20:06)
[2018-08-22] MEDS: BANATROL PLUS POWDER PACKET PO SCH ×3 (05:37→21:16)
[2018-08-22] MEDS: MESALAMINE 800 MG TABLET.DR PO SCH ×3 (06:01→21:16)
[2018-08-22 07:46] LABS: ANION GAP 9 MMOL/L (8-16); BLOOD UREA NITROGEN 22 mg/dL (7-18); CALCIUM 8.1 mg/dL (8.5-10.1); CHLORIDE 106 mmol/L (98-107); CO2 28 mmol/L (21-32); CREATININE 7.2 mg/dL (0.55-1.3); GLUCOSE,RANDOM 80 mg/dL (74-106); POTASSIUM 3.9 mmol/L (3.5-5.1); SODIUM 143 mmol/L (136-145)
[2018-08-22] MEDS: AMOX TR/POT CLAV 250MG/125MG TABLETS PO SCH ×2 (08:40→18:35)
[2018-08-22] MEDS ORDERED: PT OWN MED DRAWER 7, Y5N ONE (10:16)
[2018-08-22] MEDS: CALCIUM ACETATE 667 MG CAPSULE (FP) PO SCH ×3 (10:40→18:35)
[2018-08-22] MEDS: LACTOBACILLUS ACIDOPHILUS 1 TABLET PO SCH (10:40)
[2018-08-22] MEDS: DULoxetine HCL 20 MG CAPSULE.DR (FP) PO SCH (10:42)
[2018-08-22] MEDS: CEFUROXIME AXETIL 250 MG TABLET PO SCH (10:42)
--- NOTE | 2018-08-22 12:21 | PN ---
Progress Note (short form) - Note Progress Note: pt seen/ examined comfortable Diarrhea + as per pt-- none as per nursing staf so far Also did not take immodium also refusing phoslo compliance stressed denies pain afebrile Vital Signs Temp 98.0 F 08/21/18 15:44 Pulse 96 H 08/21/18 15:44 Resp 20 08/22/18 09:00 BP 130/78 08/21/18 15:44 Pulse Ox 99 08/22/18 09:00 Intake & Output 08/21/18 08/22/18 08/22/18 23:59 11:59 23:59 Intake Total 550 410 Balance 550 410 Intake: IV 0 saline lock 0 IVPB 0 Oral 550 410 Other: Voiding Method Incontinent Incontinent # Unmeasured Voids Void 1 1 Bowel Movement Yes No Active Medications Amoxicillin/Clavulanate Potassium (Augmentin - 250mg Tablet) 1 tab PO BID@0800, 1730 [facility] Last Admin: 08/21/18 08:49 Dose: 1 tab Calamine (Calamine 8% Topical Lotion -) 1 applic TP QID PRN PRN Reason: FOR ITCHING Calcium Acetate (Phoslo -) 1,334 mg PO TIDCM [facility] Last Admin: 08/21/18 11:38 Dose: Not Given Cefuroxime Axetil (Ceftin -) 250 mg PO DAILY [facility] Last Admin: 08/21/18 09:50 Dose: 250 mg Collagenase (Santyl -) 1 applic TP DAILY [facility] Last Admin: 08/21/18 09:50 Dose: 1 applic Diphenhydramine HCl (Benadryl -) 25 mg PO Q6H PRN PRN Reason: FOR ITCHING Last Admin: 08/17/18 22:06 Dose: 25 mg Duloxetine HCl (Cymbalta -) 20 mg PO DAILY [facility] Last Admin: 08/21/18 09:50 Dose: 20 mg Sodium Chloride (Normal Saline -) 250 mls @ 3,000 mls/hr IV PRN PRN PRN Reason: Hypotension during Dialysis Stop: 08/20/18 22:48 Lactobacillus Acidophilus (Bacid -) 1 tab PO DAILY [facility] Last Admin: 08/21/18 09:50 Dose: 1 tab Mesalamine (Asacol Hd -) 800 mg PO TID [facility] Last Admin: 08/21/18 06:29 Dose: 800 mg Tenofovir Disoproxil Fumarate (Viread -) 300 mg PO Th [facility] Last Admin: 08/17/18 18:01 Dose: 300 mg CBC, BMP 08/17/18 11:15 08/17/18 11:15 Physical . Constitutional: Yes: No Distress,/ comfortable. Eyes: Yes: Conjunctiva Clear Neck: Yes: Supple. no jvd. Cardiovascular: Yes: Regular Rate and Rhythm Gastrointestinal: Yes: Normal Bowel Sounds, Soft, not tender. Integumentary: Yes: Other (heel ulcer-- wound care/ i/d following -- dressing + Neurological: Yes: Alert/ awake. calm Assessment/Plan clinically stable chronic issues on asacol continue with local wound care awaiting str placement-- Per supportive employment case manager -- issues with insurance Medically not safe to discharge home continue present care will follow. discussed with nursing staff also. compliance issues-- discussed Problem List - Problems (1) Acute diarrhea Code(s): R19.7 - DIARRHEA, UNSPECIFIED (2) Bilateral pressure ulcer of feet Code(s): L89.899 - PRESSURE ULCER OF OTHER SITE, UNSPECIFIED STAGE (3) ESRD (end stage renal disease) Code(s): N18.6 - END STAGE RENAL DISEASE Problem List - Problems (1) Acute diarrhea Code(s): R19.7 - DIARRHEA, UNSPECIFIED (2) Bilateral pressure ulcer of feet Code(s): L89.899 - PRESSURE ULCER OF OTHER SITE, UNSPECIFIED STAGE (3) ESRD (end stage renal disease) Code(s): N18.6 - END STAGE RENAL DISEASE
[2018-08-22] MEDS: COLLAGENASE CLOSTRIDIUM HIST. 30 GRAMS TUBE TP SCH (14:27)
[2018-08-22] MEDS ORDERED: SODIUM CHLORIDE 250 ML IV PRN (16:27)
--- NOTE | 2018-08-22 16:27 | PN ---
Progress Note, Physician History of Present Illness: Pt seen and examined at bedside. He is awake and alert. He denies shortness of breath. - Current Medication List Current Medications: Active Medications Amoxicillin/Clavulanate Potassium (Augmentin - 250mg Tablet) 1 tab PO BID@0800, 1730 [facility] Last Admin: 08/22/18 08:40 Dose: 1 tab Calamine (Calamine 8% Topical Lotion -) 1 applic TP QID PRN PRN Reason: FOR ITCHING Calcium Acetate (Phoslo -) 1,334 mg PO TIDCM [facility] Last Admin: 08/22/18 13:08 Dose: Not Given Cefuroxime Axetil (Ceftin -) 250 mg PO DAILY [facility] Last Admin: 08/22/18 10:42 Dose: 250 mg Collagenase (Santyl -) 1 applic TP DAILY [facility] Last Admin: 08/21/18 09:50 Dose: 1 applic Diphenhydramine HCl (Benadryl -) 25 mg PO Q6H PRN PRN Reason: FOR ITCHING Last Admin: 08/17/18 22:06 Dose: 25 mg Duloxetine HCl (Cymbalta -) 20 mg PO DAILY [facility] Last Admin: 08/22/18 10:42 Dose: 20 mg Sodium Chloride (Normal Saline -) 250 mls @ 3,000 mls/hr IV PRN PRN PRN Reason: Hypotension during Dialysis Stop: 08/20/18 22:48 Lactobacillus Acidophilus (Bacid -) 1 tab PO DAILY [facility] Last Admin: 08/22/18 10:40 Dose: 1 tab Loperamide HCl (Imodium -) 2 mg PO Q8H PRN PRN Reason: DIARRHEA Mesalamine (Asacol Hd -) 800 mg PO TID [facility] Last Admin: 08/22/18 14:48 Dose: Not Given Tenofovir Disoproxil Fumarate (Viread -) 300 mg PO Th [facility] Last Admin: 08/17/18 18:01 Dose: 300 mg - Objective Vital Signs: Vital Signs Temperature 98.0 F 08/21/18 15:44 Pulse Rate 96 H 08/21/18 15:44 Respiratory Rate 20 08/22/18 09:00 Blood Pressure 130/78 08/21/18 15:44 O2 Sat by Pulse Oximetry (%) 99 08/22/18 09:00 Constitutional: Yes: Calm Eyes: Yes: Conjunctiva Clear HENT: Yes: Atraumatic Neck: Yes: Supple Cardiovascular: Yes: S1, S2 Respiratory: Yes: CTA Bilaterally Gastrointestinal: Yes: Soft Genitourinary: Yes: Incontinence Musculoskeletal: Yes: WNL Edema: No Neurological: Yes: Oriented Psychiatric: Yes: Oriented Labs: CBC, BMP 08/17/18 11:15 08/22/18 06:45 INR, PTT INR 1.01 (0.83-1.09) 07/24/18 08:30 Problem List - Problems (1) ESRD (end stage renal disease) Code(s): N18.6 - END STAGE RENAL DISEASE Assessment/Plan Current Medications Generic Name Dose Route Start Last Admin Trade Name Freq PRN Reason Stop Dose Admin Amoxicillin/Clavulanate Potassium 1 tab 08/16/18 17:30 08/22/18 08:40 Augmentin - 250mg Tablet PO 1 tab BID@0800,1730 [facility] Administration Calamine 1 applic 08/17/18 13:47 Calamine 8% Topical Lotion - TP QID PRN FOR ITCHING Calcium Acetate 1,334 mg 08/10/18 17:30 08/22/18 13:08 Phoslo - PO Not Given TIDCM [facility] Cefuroxime Axetil 250 mg 08/16/18 14:45 08/22/18 10:42 Ceftin - PO 250 mg DAILY [facility] Administration Collagenase 1 applic 08/11/18 10:00 08/21/18 09:50 Santyl - TP 1 applic DAILY [facility] Administration Diphenhydramine HCl 25 mg 08/10/18 17:16 08/17/18 22:06 Benadryl - PO 25 mg Q6H PRN Administration FOR ITCHING Duloxetine HCl 20 mg 08/11/18 10:00 08/22/18 10:42 Cymbalta - PO 20 mg DAILY [facility] Administration Sodium Chloride 250 mls @ 3,000 mls/hr 08/19/18 22:48 Normal Saline - IV 08/20/18 22:48 PRN PRN Hypotension during Dialysis Lactobacillus Acidophilus 1 tab 08/11/18 10:00 08/22/18 10:40 Bacid - PO 1 tab DAILY [facility] Administration Loperamide HCl 2 mg 08/21/18 12:35 Imodium - PO Q8H PRN DIARRHEA Mesalamine 800 mg 08/10/18 14:00 08/22/18 14:48 Asacol Hd - PO Not Given TID [facility] Tenofovir Disoproxil Fumarate 300 mg 08/17/18 14:00 08/17/18 18:01 Viread - PO 300 mg Th [facility] Administration Impression 1. ESRD 2. anemia 3. hypokalemia 4. Hep B 5. diarrhea 6. depression 7. non-compliance with HD 8. acidosis - metabolic 9. hypocalcemia 10. hearing loss 11. sepsis Plan - HD in am - encourage PO intake - potassium stable - wound care to leg - will follow
[2018-08-23] MEDS: BANATROL PLUS POWDER PACKET PO SCH ×3 (06:12→22:01)
[2018-08-23] MEDS: MESALAMINE 800 MG TABLET.DR PO SCH ×3 (06:12→22:02)
[2018-08-23] MEDS: CALCIUM ACETATE 667 MG CAPSULE (FP) PO SCH ×3 (09:31→17:05)
[2018-08-23] MEDS ORDERED: PT OWN MED DRAWER 7, Y5N ONE ×2 (09:32→13:20)
[2018-08-23] MEDS: LACTOBACILLUS ACIDOPHILUS 1 TABLET PO SCH (09:33)
[2018-08-23] MEDS: DULoxetine HCL 20 MG CAPSULE.DR (FP) PO SCH (09:34)
[2018-08-23] MEDS: AMOX TR/POT CLAV 250MG/125MG TABLETS PO SCH (09:34)
[2018-08-23] MEDS: CEFUROXIME AXETIL 250 MG TABLET PO SCH (09:34)
[2018-08-23] MEDS ORDERED: EPOETIN ALFA 2,000 UNIT/1 ML VIAL IVPUSH ONE (10:45)
[2018-08-23 10:57] LABS: HEMATOCRIT 28.8 % (35.4-49); HEMOGLOBIN 9.7 GM/dL (11.7-16.9); MCH 31.1 pg (25.7-33.7); MCHC 33.5 g/dl (32.0-35.9); MEAN CELL VOLUME 92.7 fl (80-96); MEAN PLT VOLUME 10.3 fl (7.5-11.1); PLATELET COUNT 88 K/MM3 (134-434); RBC 3.11 M/mm3 (4.00-5.60); RDW 15.2 % (11.9-15.9); WHITE BLOOD COUNT 4.9 K/mm3 (4.0-10.0)
--- NOTE | 2018-08-23 11:26 | PN ---
Progress Note, Physician History of Present Illness: stable refusing to eat being dialysed comfortable - Current Medication List Current Medications: Active Medications Calamine (Calamine 8% Topical Lotion -) 1 applic TP QID PRN PRN Reason: FOR ITCHING Calcium Acetate (Phoslo -) 1,334 mg PO TIDCM [facility] Last Admin: 08/23/18 09:31 Dose: Not Given Collagenase (Santyl -) 1 applic TP DAILY [facility] Last Admin: 08/22/18 14:27 Dose: 1 applic Diphenhydramine HCl (Benadryl -) 25 mg PO Q6H PRN PRN Reason: FOR ITCHING Last Admin: 08/17/18 22:06 Dose: 25 mg Duloxetine HCl (Cymbalta -) 20 mg PO DAILY [facility] Last Admin: 08/23/18 09:34 Dose: 20 mg Sodium Chloride (Normal Saline -) 250 mls @ 3,000 mls/hr IV PRN PRN PRN Reason: Hypotension during Dialysis Stop: 08/23/18 16:27 Lactobacillus Acidophilus (Bacid -) 1 tab PO DAILY [facility] Last Admin: 08/23/18 09:33 Dose: 1 tab Loperamide HCl (Imodium -) 2 mg PO Q8H PRN PRN Reason: DIARRHEA Mesalamine (Asacol Hd -) 800 mg PO TID [facility] Last Admin: 08/23/18 06:12 Dose: 800 mg Tenofovir Disoproxil Fumarate (Viread -) 300 mg PO Th [facility] Last Admin: 08/17/18 18:01 Dose: 300 mg - Objective Vital Signs: Vital Signs Temperature 97.8 F 08/23/18 09:30 Pulse Rate 102 H 08/23/18 09:30 Respiratory Rate 20 08/23/18 09:30 Blood Pressure 153/89 08/23/18 09:30 O2 Sat by Pulse Oximetry (%) 99 08/22/18 21:00 Constitutional: Yes: No Distress, Calm Cardiovascular: Yes: Regular Rate and Rhythm Respiratory: Yes: Regular, CTA Bilaterally Gastrointestinal: Yes: Normal Bowel Sounds, Soft Musculoskeletal: Yes: WNL Extremities: Yes: Other Neurological: Yes: Alert, Oriented Psychiatric: Yes: Alert, Oriented Labs: CBC, BMP 08/23/18 10:15 INR, PTT INR 1.01 (0.83-1.09) 07/24/18 08:30 Assessment/Plan Assessment/Plan Problem List - Problems (1) Acute diarrhea Code(s): R19.7 - DIARRHEA, UNSPECIFIED (2) Bilateral pressure ulcer of feet Code(s): L89.899 - PRESSURE ULCER OF OTHER SITE, UNSPECIFIED STAGE (3) C. difficile colitis Code(s): A04.72 - ENTEROCOLITIS D/T CLOSTRIDIUM DIFFICILE, NOT SPCF RECUR (4) Chronic diarrhea Code(s): K52.9 - NONINFECTIVE GASTROENTERITIS AND COLITIS, UNSPECIFIED (5) Diabetic foot ulcer Code(s): E11.621 - TYPE 2 DIABETES MELLITUS WITH FOOT ULCER; L97.509 - NON- PRESSURE CHRONIC ULCER OTH PRT UNSP FOOT W UNSP SEVERITY Qualifiers: Diabetic foot ulcer location: heel Diabetes mellitus type: other specified (including JADON) Laterality: unspecified laterality Non-pressure ulcer stage : unspecified non-pressure ulcer stage Qualified Code(s): E13.621 - Other specified diabetes mellitus with foot ulcer; L97.409 - Non-pressure chronic ulcer of unspecified heel and midfoot with unspecified severity (6) ESRD (end stage renal disease) Code(s): N18.6 - END STAGE RENAL DISEASE (7) Generalized weakness Code(s): R53.1 - WEAKNESS (8) Sacral decubitus ulcer Code(s): L89.159 - PRESSURE ULCER OF SACRAL REGION, UNSPECIFIED STAGE 9 left heel wound 10 osteo of the heel plan will stop all abx patient needs to be encouraged to eat d/w him psych rest as per the team
[2018-08-23 12:07] LABS: ANION GAP 10 MMOL/L (8-16); BLOOD UREA NITROGEN 24 mg/dL (7-18); CALCIUM 7.8 mg/dL (8.5-10.1); CHLORIDE 107 mmol/L (98-107); CO2 25 mmol/L (21-32); GLUCOSE,RANDOM 86 mg/dL (74-106); POTASSIUM 3.5 mmol/L (3.5-5.1); SODIUM 142 mmol/L (136-145)
[2018-08-23 12:19] LABS: CREATININE 8.7 mg/dL (0.55-1.3)
--- NOTE | 2018-08-23 13:40 | PN ---
Progress Note (short form) - Note Progress Note: refusing to eat no bm afraid to eat Vital Signs - 24 hr 08/22/18 08/23/18 08/23/18 21:00 09:30 10:10 Temperature 97.8 F 98.4 F Pulse Rate 102 H 99 H Respiratory 20 20 18 Rate Blood Pressure 153/89 148/92 O2 Sat by Pulse 99 Oximetry (%) 08/23/18 08/23/18 08/23/18 10:15 10:45 11:15 Temperature Pulse Rate 98 H 100 H 96 H Respiratory 18 18 18 Rate Blood Pressure 150/100 130/94 135/47 L O2 Sat by Pulse Oximetry (%) 08/23/18 08/23/18 08/23/18 11:45 12:15 12:45 Temperature Pulse Rate 98 H 90 96 H Respiratory 18 18 18 Rate Blood Pressure 131/88 130/82 130/88 O2 Sat by Pulse Oximetry (%) 08/23/18 08/23/18 08/23/18 13:10 15:04 18:46 Temperature 98.8 F 98.6 F Pulse Rate 98 H 101 H 107 H Respiratory 18 18 18 Rate Blood Pressure 142/83 146/83 130/75 O2 Sat by Pulse Oximetry (%) Current Medications Generic Name Dose Route Start Last Admin Trade Name Freq PRN Reason Stop Dose Admin Calamine 1 applic 08/17/18 13:47 Calamine 8% Topical Lotion - TP QID PRN FOR ITCHING Calcium Acetate 1,334 mg 08/10/18 17:30 08/23/18 17:05 Phoslo - PO Not Given TIDCM IRVIN Collagenase 1 applic 08/11/18 10:00 08/23/18 19:54 Santyl - TP 1 applic DAILY IRVIN Administration Diphenhydramine HCl 25 mg 08/10/18 17:16 08/17/18 22:06 Benadryl - PO 25 mg Q6H PRN Administration FOR ITCHING Duloxetine HCl 40 mg 08/24/18 10:00 Cymbalta - PO DAILY IRVIN Lactobacillus Acidophilus 1 tab 08/11/18 10:00 08/23/18 09:33 Bacid - PO 1 tab DAILY IRVIN Administration Loperamide HCl 2 mg 08/21/18 12:35 Imodium - PO Q8H PRN DIARRHEA Mesalamine 800 mg 08/10/18 14:00 08/23/18 14:19 Asacol Hd - PO 800 mg TID IRVIN Administration Tenofovir Disoproxil Fumarate 300 mg 08/17/18 14:00 08/17/18 18:01 Viread - PO 300 mg Th IRVIN Administration Laboratory Results - last 24 hr 08/23/18 08/23/18 10:15 10:15 WBC 4.9 RBC 3.11 L Hgb 9.7 L Hct 28.8 L MCV 92.7 MCH 31.1 MCHC 33.5 RDW 15.2 Plt Count 88 L D MPV 10.3 Sodium 142 Potassium 3.5 Chloride 107 Carbon Dioxide 25 Anion Gap 10 BUN 24 H Creatinine 8.7 H* Creat Clearance w eGFR 6.52 Random Glucose 86 Calcium 7.8 L Constitutional: Yes: No Distress, Calm Eyes: Yes: Conjunctiva Clear Neck: Yes: Supple Cardiovascular: Yes: Regular Rate and Rhythm Gastrointestinal: Yes: Normal Bowel Sounds, Soft, not tender Edema: yes- hands Integumentary: Yes: Other (history of heel ulcers--- follows at wound care.) Neurological: Yes: Alert Assessment/Plan refusing to eat does not have desire to eat - depressed no suicidal ideas psych eval increase Cymbalta add remeron Problem List - Problems (1) Acute diarrhea Code(s): R19.7 - DIARRHEA, UNSPECIFIED (2) Bilateral pressure ulcer of feet Code(s): L89.899 - PRESSURE ULCER OF OTHER SITE, UNSPECIFIED STAGE (3) C. difficile colitis Code(s): A04.72 - ENTEROCOLITIS D/T CLOSTRIDIUM DIFFICILE, NOT SPCF RECUR (4) Chronic diarrhea Code(s): K52.9 - NONINFECTIVE GASTROENTERITIS AND COLITIS, UNSPECIFIED (5) Diabetic foot ulcer Code(s): E11.621 - TYPE 2 DIABETES MELLITUS WITH FOOT ULCER; L97.509 - NON- PRESSURE CHRONIC ULCER OTH PRT UNSP FOOT W UNSP SEVERITY Qualifiers: Diabetic foot ulcer location: heel Diabetes mellitus type: other specified (including JADON) Laterality: unspecified laterality Non-pressure ulcer stage : unspecified non-pressure ulcer stage Qualified Code(s): E13.621 - Other specified diabetes mellitus with foot ulcer; L97.409 - Non-pressure chronic ulcer of unspecified heel and midfoot with unspecified severity (6) ESRD (end stage renal disease) Code(s): N18.6 - END STAGE RENAL DISEASE (7) Generalized weakness Code(s): R53.1 - WEAKNESS (8) Sacral decubitus ulcer Code(s): L89.159 - PRESSURE ULCER OF SACRAL REGION, UNSPECIFIED STAGE
[2018-08-23] MEDS ORDERED: DULoxetine HCL 20 MG CAPSULE.DR (FP) PO SCH (13:41)
--- NOTE | 2018-08-23 14:56 | PN ---
Progress Note, Physician History of Present Illness: Pt seen and examined at bedside. He signed himself off of HD after 2 hours today. - Current Medication List Current Medications: Active Medications Calamine (Calamine 8% Topical Lotion -) 1 applic TP QID PRN PRN Reason: FOR ITCHING Calcium Acetate (Phoslo -) 1,334 mg PO TIDCM [facility] Last Admin: 08/23/18 11:36 Dose: Not Given Collagenase (Santyl -) 1 applic TP DAILY [facility] Last Admin: 08/22/18 14:27 Dose: 1 applic Diphenhydramine HCl (Benadryl -) 25 mg PO Q6H PRN PRN Reason: FOR ITCHING Last Admin: 08/17/18 22:06 Dose: 25 mg Duloxetine HCl (Cymbalta -) 40 mg PO DAILY [facility] Sodium Chloride (Normal Saline -) 250 mls @ 3,000 mls/hr IV PRN PRN PRN Reason: Hypotension during Dialysis Stop: 08/23/18 16:27 Lactobacillus Acidophilus (Bacid -) 1 tab PO DAILY [facility] Last Admin: 08/23/18 09:33 Dose: 1 tab Loperamide HCl (Imodium -) 2 mg PO Q8H PRN PRN Reason: DIARRHEA Mesalamine (Asacol Hd -) 800 mg PO TID [facility] Last Admin: 08/23/18 14:19 Dose: 800 mg Tenofovir Disoproxil Fumarate (Viread -) 300 mg PO Th [facility] Last Admin: 08/17/18 18:01 Dose: 300 mg - Objective Vital Signs: Vital Signs Temperature 97.8 F 08/23/18 09:30 Pulse Rate 102 H 08/23/18 09:30 Respiratory Rate 20 08/23/18 09:30 Blood Pressure 153/89 08/23/18 09:30 O2 Sat by Pulse Oximetry (%) 99 08/22/18 21:00 Constitutional: Yes: Calm Eyes: Yes: Conjunctiva Clear HENT: Yes: Atraumatic Cardiovascular: Yes: S1, S2 Respiratory: Yes: CTA Bilaterally Gastrointestinal: Yes: Soft Genitourinary: Yes: WNL Musculoskeletal: Yes: Muscle Weakness Edema: No Neurological: Yes: Oriented Psychiatric: Yes: Oriented Labs: CBC, BMP 08/23/18 10:15 08/23/18 10:15 INR, PTT INR 1.01 (0.83-1.09) 07/24/18 08:30 Problem List - Problems (1) ESRD (end stage renal disease) Code(s): N18.6 - END STAGE RENAL DISEASE Assessment/Plan Current Medications Generic Name Dose Route Start Last Admin Trade Name Freq PRN Reason Stop Dose Admin Calamine 1 applic 08/17/18 13:47 Calamine 8% Topical Lotion - TP QID PRN FOR ITCHING Calcium Acetate 1,334 mg 08/10/18 17:30 08/23/18 11:36 Phoslo - PO Not Given TIDCM IRVIN Collagenase 1 applic 08/11/18 10:00 08/22/18 14:27 Santyl - TP 1 applic DAILY IRVIN Administration Diphenhydramine HCl 25 mg 08/10/18 17:16 08/17/18 22:06 Benadryl - PO 25 mg Q6H PRN Administration FOR ITCHING Duloxetine HCl 40 mg 08/24/18 10:00 Cymbalta - PO DAILY IRVIN Sodium Chloride 250 mls @ 3,000 mls/hr 08/22/18 16:27 Normal Saline - IV 08/23/18 16:27 PRN PRN Hypotension during Dialysis Lactobacillus Acidophilus 1 tab 08/11/18 10:00 08/23/18 09:33 Bacid - PO 1 tab DAILY IRVIN Administration Loperamide HCl 2 mg 08/21/18 12:35 Imodium - PO Q8H PRN DIARRHEA Mesalamine 800 mg 08/10/18 14:00 08/23/18 14:19 Asacol Hd - PO 800 mg TID IRVIN Administration Tenofovir Disoproxil Fumarate 300 mg 08/17/18 14:00 08/17/18 18:01 Viread - PO 300 mg Th IRVIN Administration Impression 1. ESRD 2. anemia 3. hypokalemia 4. Hep B 5. diarrhea 6. depression 7. non-compliance with HD 8. acidosis - metabolic 9. hypocalcemia 10. hearing loss 11. sepsis Plan - HD today - pt signed off of machine - pending d/c planning - encourage PO intake - wound care to leg - will follow
[2018-08-23] MEDS: COLLAGENASE CLOSTRIDIUM HIST. 30 GRAMS TUBE TP SCH (19:54)
[2018-08-23] MEDS: MIRTAZAPINE 15 MG TABLET (FP) PO SCH (22:01)
[2018-08-24] MEDS: BANATROL PLUS POWDER PACKET PO SCH ×3 (06:41→22:24)
[2018-08-24] MEDS: MESALAMINE 800 MG TABLET.DR PO SCH ×3 (06:48→22:31)
[2018-08-24] MEDS: CALCIUM ACETATE 667 MG CAPSULE (FP) PO SCH ×3 (08:04→17:05)
[2018-08-24] MEDS: LACTOBACILLUS ACIDOPHILUS 1 TABLET PO SCH (10:44)
[2018-08-24] MEDS ORDERED: PT OWN MED DRAWER 7, Y5N ONE (10:47)
[2018-08-24] MEDS: DULoxetine HCL 20 MG CAPSULE.DR (FP) PO SCH (10:48)
[2018-08-24] MEDS: COLLAGENASE CLOSTRIDIUM HIST. 30 GRAMS TUBE TP SCH (10:50)
--- NOTE | 2018-08-24 11:27 | PN ---
Progress Note, Physician History of Present Illness: stable no new issues - Current Medication List Current Medications: Active Medications Calamine (Calamine 8% Topical Lotion -) 1 applic TP QID PRN PRN Reason: FOR ITCHING Calcium Acetate (Phoslo -) 1,334 mg PO TIDCM [facility] Last Admin: 08/24/18 08:04 Dose: Not Given Collagenase (Santyl -) 1 applic TP DAILY [facility] Last Admin: 08/24/18 10:50 Dose: 1 applic Diphenhydramine HCl (Benadryl -) 25 mg PO Q6H PRN PRN Reason: FOR ITCHING Last Admin: 08/17/18 22:06 Dose: 25 mg Duloxetine HCl (Cymbalta -) 40 mg PO DAILY [facility] Last Admin: 08/24/18 10:48 Dose: 40 mg Lactobacillus Acidophilus (Bacid -) 1 tab PO DAILY [facility] Last Admin: 08/24/18 10:44 Dose: 1 tab Loperamide HCl (Imodium -) 2 mg PO Q8H PRN PRN Reason: DIARRHEA Mesalamine (Asacol Hd -) 800 mg PO TID [facility] Last Admin: 08/24/18 06:48 Dose: 800 mg Mirtazapine (Remeron -) 7.5 mg PO HS [facility] Last Admin: 08/23/18 22:01 Dose: Not Given Tenofovir Disoproxil Fumarate (Viread -) 300 mg PO Th [facility] Last Admin: 08/17/18 18:01 Dose: 300 mg - Objective Vital Signs: Vital Signs Temperature 97.7 F 08/24/18 06:00 Pulse Rate 97 H 08/24/18 06:00 Respiratory Rate 18 08/24/18 06:00 Blood Pressure 132/82 08/24/18 06:00 O2 Sat by Pulse Oximetry (%) 98 08/23/18 21:00 Constitutional: Yes: No Distress, Calm Cardiovascular: Yes: Regular Rate and Rhythm Gastrointestinal: Yes: Normal Bowel Sounds, Soft Musculoskeletal: Yes: Other Extremities: Yes: Other Wound/Incision: Yes: Dressing Dry and Intact Neurological: Yes: Alert, Oriented Psychiatric: Yes: Alert, Oriented Labs: CBC, BMP 08/23/18 10:15 08/23/18 10:15 INR, PTT INR 1.01 (0.83-1.09) 07/24/18 08:30 Assessment/Plan Assessment/Plan Problem List - Problems (1) Acute diarrhea Code(s): R19.7 - DIARRHEA, UNSPECIFIED (2) Bilateral pressure ulcer of feet Code(s): L89.899 - PRESSURE ULCER OF OTHER SITE, UNSPECIFIED STAGE (3) C. difficile colitis Code(s): A04.72 - ENTEROCOLITIS D/T CLOSTRIDIUM DIFFICILE, NOT SPCF RECUR (4) Chronic diarrhea Code(s): K52.9 - NONINFECTIVE GASTROENTERITIS AND COLITIS, UNSPECIFIED (5) Diabetic foot ulcer Code(s): E11.621 - TYPE 2 DIABETES MELLITUS WITH FOOT ULCER; L97.509 - NON- PRESSURE CHRONIC ULCER OTH PRT UNSP FOOT W UNSP SEVERITY Qualifiers: Diabetic foot ulcer location: heel Diabetes mellitus type: other specified (including JADON) Laterality: unspecified laterality Non-pressure ulcer stage : unspecified non-pressure ulcer stage Qualified Code(s): E13.621 - Other specified diabetes mellitus with foot ulcer; L97.409 - Non-pressure chronic ulcer of unspecified heel and midfoot with unspecified severity (6) ESRD (end stage renal disease) Code(s): N18.6 - END STAGE RENAL DISEASE (7) Generalized weakness Code(s): R53.1 - WEAKNESS (8) Sacral decubitus ulcer Code(s): L89.159 - PRESSURE ULCER OF SACRAL REGION, UNSPECIFIED STAGE 9 left heel wound 10 osteo of the heel plan continue wound care nutrition rest as per the team watch for depression
--- NOTE | 2018-08-24 12:16 | PN ---
Progress Note (short form) - Note Progress Note: started to eat has diarrhea Vital Signs - 24 hr 08/23/18 08/23/18 08/23/18 12:45 13:10 15:04 Temperature 98.8 F Pulse Rate 96 H 98 H 101 H Respiratory 18 18 18 Rate Blood Pressure 130/88 142/83 146/83 O2 Sat by Pulse Oximetry (%) 08/23/18 08/23/18 08/24/18 18:46 21:00 06:00 Temperature 98.6 F 97.7 F Pulse Rate 107 H 97 H Respiratory 18 18 Rate Blood Pressure 130/75 132/82 O2 Sat by Pulse 98 Oximetry (%) 08/24/18 09:00 Temperature 98.2 F Pulse Rate 101 H Respiratory 18 Rate Blood Pressure 129/74 O2 Sat by Pulse Oximetry (%) Current Medications Generic Name Dose Route Start Last Admin Trade Name Freq PRN Reason Stop Dose Admin Calamine 1 applic 08/17/18 13:47 Calamine 8% Topical Lotion - TP QID PRN FOR ITCHING Calcium Acetate 1,334 mg 08/10/18 17:30 08/24/18 11:40 Phoslo - PO Not Given TIDCM IRVIN Collagenase 1 applic 08/11/18 10:00 08/24/18 10:50 Santyl - TP 1 applic DAILY IRVIN Administration Diphenhydramine HCl 25 mg 08/10/18 17:16 08/17/18 22:06 Benadryl - PO 25 mg Q6H PRN Administration FOR ITCHING Duloxetine HCl 40 mg 08/24/18 10:00 08/24/18 10:48 Cymbalta - PO 40 mg DAILY IRVIN Administration Lactobacillus Acidophilus 1 tab 08/11/18 10:00 08/24/18 10:44 Bacid - PO 1 tab DAILY IRVIN Administration Loperamide HCl 2 mg 08/21/18 12:35 Imodium - PO Q8H PRN DIARRHEA Mesalamine 800 mg 08/10/18 14:00 08/24/18 06:48 Asacol Hd - PO 800 mg TID IRVIN Administration Mirtazapine 7.5 mg 08/23/18 22:00 08/23/18 22:01 Remeron - PO Not Given HS IRVIN Tenofovir Disoproxil Fumarate 300 mg 08/17/18 14:00 08/17/18 18:01 Viread - PO 300 mg Th IVRIN Administration Laboratory Results - last 24 hr 08/23/18 10:15 Creatinine 8.7 H* Constitutional: Yes: No Distress, Calm Eyes: Yes: Conjunctiva Clear Neck: Yes: Supple Cardiovascular: Yes: Regular Rate and Rhythm Gastrointestinal: Yes: Normal Bowel Sounds, Soft, not tender Edema: yes- hands Integumentary: Yes: Other (history of heel ulcers--- follows at wound care.) Neurological: Yes: Alert Assessment/Plan continue with meds dc planning no suicidal ideas HD per renal Problem List - Problems (1) Acute diarrhea Code(s): R19.7 - DIARRHEA, UNSPECIFIED (2) Bilateral pressure ulcer of feet Code(s): L89.899 - PRESSURE ULCER OF OTHER SITE, UNSPECIFIED STAGE (3) C. difficile colitis Code(s): A04.72 - ENTEROCOLITIS D/T CLOSTRIDIUM DIFFICILE, NOT SPCF RECUR (4) Chronic diarrhea Code(s): K52.9 - NONINFECTIVE GASTROENTERITIS AND COLITIS, UNSPECIFIED (5) Diabetic foot ulcer Code(s): E11.621 - TYPE 2 DIABETES MELLITUS WITH FOOT ULCER; L97.509 - NON- PRESSURE CHRONIC ULCER OTH PRT UNSP FOOT W UNSP SEVERITY Qualifiers: Diabetic foot ulcer location: heel Diabetes mellitus type: other specified (including JADON) Laterality: unspecified laterality Non-pressure ulcer stage : unspecified non-pressure ulcer stage Qualified Code(s): E13.621 - Other specified diabetes mellitus with foot ulcer; L97.409 - Non-pressure chronic ulcer of unspecified heel and midfoot with unspecified severity (6) ESRD (end stage renal disease) Code(s): N18.6 - END STAGE RENAL DISEASE (7) Generalized weakness Code(s): R53.1 - WEAKNESS (8) Sacral decubitus ulcer Code(s): L89.159 - PRESSURE ULCER OF SACRAL REGION, UNSPECIFIED STAGE
[2018-08-24] MEDS ORDERED: SODIUM CHLORIDE 250 ML IV PRN (14:13)
--- NOTE | 2018-08-24 14:13 | PN ---
Progress Note, Physician History of Present Illness: Pt seen and examined. He appears comfortable. No new events. - Current Medication List Current Medications: Active Medications Calamine (Calamine 8% Topical Lotion -) 1 applic TP QID PRN PRN Reason: FOR ITCHING Calcium Acetate (Phoslo -) 1,334 mg PO TIDCM [facility] Last Admin: 08/24/18 11:40 Dose: Not Given Collagenase (Santyl -) 1 applic TP DAILY [facility] Last Admin: 08/24/18 10:50 Dose: 1 applic Diphenhydramine HCl (Benadryl -) 25 mg PO Q6H PRN PRN Reason: FOR ITCHING Last Admin: 08/17/18 22:06 Dose: 25 mg Duloxetine HCl (Cymbalta -) 40 mg PO DAILY [facility] Last Admin: 08/24/18 10:48 Dose: 40 mg Lactobacillus Acidophilus (Bacid -) 1 tab PO DAILY [facility] Last Admin: 08/24/18 10:44 Dose: 1 tab Loperamide HCl (Imodium -) 2 mg PO Q8H PRN PRN Reason: DIARRHEA Mesalamine (Asacol Hd -) 800 mg PO TID [facility] Last Admin: 08/24/18 06:48 Dose: 800 mg Mirtazapine (Remeron -) 7.5 mg PO HS [facility] Last Admin: 08/23/18 22:01 Dose: Not Given Tenofovir Disoproxil Fumarate (Viread -) 300 mg PO Th [facility] Last Admin: 08/17/18 18:01 Dose: 300 mg - Objective Vital Signs: Vital Signs Temperature 98.2 F 08/24/18 09:00 Pulse Rate 101 H 08/24/18 09:00 Respiratory Rate 18 08/24/18 09:00 Blood Pressure 129/74 08/24/18 09:00 O2 Sat by Pulse Oximetry (%) 98 08/23/18 21:00 Constitutional: Yes: Calm Eyes: Yes: Conjunctiva Clear HENT: Yes: Atraumatic Neck: Yes: Supple Cardiovascular: Yes: S1, S2 Respiratory: Yes: CTA Bilaterally Gastrointestinal: Yes: Soft Musculoskeletal: Yes: Muscle Weakness Edema: No Neurological: Yes: Oriented Labs: CBC, BMP 08/23/18 10:15 08/23/18 10:15 INR, PTT INR 1.01 (0.83-1.09) 07/24/18 08:30 Problem List - Problems (1) ESRD (end stage renal disease) Code(s): N18.6 - END STAGE RENAL DISEASE Assessment/Plan Current Medications Generic Name Dose Route Start Last Admin Trade Name Freq PRN Reason Stop Dose Admin Calamine 1 applic 08/17/18 13:47 Calamine 8% Topical Lotion - TP QID PRN FOR ITCHING Calcium Acetate 1,334 mg 08/10/18 17:30 08/24/18 11:40 Phoslo - PO Not Given TIDCM IRVIN Collagenase 1 applic 08/11/18 10:00 08/24/18 10:50 Santyl - TP 1 applic DAILY [facility]VIN Administration Diphenhydramine HCl 25 mg 08/10/18 17:16 08/17/18 22:06 Benadryl - PO 25 mg Q6H PRN Administration FOR ITCHING Duloxetine HCl 40 mg 08/24/18 10:00 08/24/18 10:48 Cymbalta - PO 40 mg DAILY IRVIN Administration Lactobacillus Acidophilus 1 tab 08/11/18 10:00 08/24/18 10:44 Bacid - PO 1 tab DAILY IRVIN Administration Loperamide HCl 2 mg 08/21/18 12:35 Imodium - PO Q8H PRN DIARRHEA Mesalamine 800 mg 08/10/18 14:00 08/24/18 06:48 Asacol Hd - PO 800 mg TID IRVIN Administration Mirtazapine 7.5 mg 08/23/18 22:00 08/23/18 22:01 Remeron - PO Not Given HS IRVIN Tenofovir Disoproxil Fumarate 300 mg 08/17/18 14:00 08/17/18 18:01 Viread - PO 300 mg Th IRVIN Administration Impression 1. ESRD 2. anemia 3. hypokalemia 4. Hep B 5. diarrhea 6. depression 7. non-compliance with HD 8. acidosis - metabolic 9. hypocalcemia 10. hearing loss 11. sepsis Plan - HD in am - d/c planning - encourage PO intake - wound care to leg - will follow
[2018-08-24] MEDS: TENOFOVIR DISOPROXIL FUMARATE 300 MG TABLET PO SCH (14:18)
[2018-08-24] MEDS: MIRTAZAPINE 15 MG TABLET (FP) PO SCH (22:31)
[2018-08-25] MEDS: BANATROL PLUS POWDER PACKET PO SCH ×3 (07:14→23:24)
[2018-08-25] MEDS: MESALAMINE 800 MG TABLET.DR PO SCH ×3 (07:14→23:24)
[2018-08-25] MEDS ORDERED: EPOETIN ALFA 2,000 UNIT, EPOETIN ALFA 3,000 UNIT IVPUSH ONE (10:00)
[2018-08-25] MEDS ORDERED: PT OWN MED DRAWER 7, Y5N ONE ×2 (12:11→16:52)
--- NOTE | 2018-08-25 12:11 | PN ---
Progress Note (short form) - Note Progress Note: awake/ comfortable chart reviewed all f/u noted reports diarrhea better mood better afebrile Vital Signs Temp 98.4 F 08/24/18 18:35 Pulse 98 H 08/24/18 18:35 Resp 20 08/24/18 21:00 BP 131/75 08/24/18 18:35 Pulse Ox 98 08/24/18 21:00 Intake & Output 08/24/18 08/25/18 08/25/18 23:59 11:59 23:59 Intake Total 690 Balance 690 Intake: Oral 690 Other: Voiding Method Incontinent # Unmeasured Voids Void 0 0 Bowel Movement Yes Yes # Bowel Movements 3 1 Active Medications Calamine (Calamine 8% Topical Lotion -) 1 applic TP QID PRN PRN Reason: FOR ITCHING Calcium Acetate (Phoslo -) 1,334 mg PO TIDCM [facility] Last Admin: 08/24/18 17:05 Dose: Not Given Collagenase (Santyl -) 1 applic TP DAILY [facility] Last Admin: 08/24/18 10:50 Dose: 1 applic Diphenhydramine HCl (Benadryl -) 25 mg PO Q6H PRN PRN Reason: FOR ITCHING Last Admin: 08/17/18 22:06 Dose: 25 mg Duloxetine HCl (Cymbalta -) 40 mg PO DAILY [facility] Last Admin: 08/24/18 10:48 Dose: 40 mg Sodium Chloride (Normal Saline -) 250 mls @ 3,000 mls/hr IV PRN PRN PRN Reason: Hypotension during Dialysis Stop: 08/25/18 14:13 Lactobacillus Acidophilus (Bacid -) 1 tab PO DAILY [facility] Last Admin: 08/24/18 10:44 Dose: 1 tab Loperamide HCl (Imodium -) 2 mg PO Q8H PRN PRN Reason: DIARRHEA Mesalamine (Asacol Hd -) 800 mg PO TID [facility] Last Admin: 08/25/18 07:14 Dose: 800 mg Mirtazapine (Remeron -) 7.5 mg PO [facility] Last Admin: 08/24/18 22:31 Dose: 7.5 mg Tenofovir Disoproxil Fumarate (Viread -) 300 mg PO [facility] Last Admin: 08/24/18 14:18 Dose: 300 mg CBC, BMP 08/23/18 10:15 08/23/18 10:15 Physical . Constitutional: Yes: No Distress,/ comfortable. Eyes: Yes: Conjunctiva Clear Neck: Yes: Supple. no jvd. Cardiovascular: Yes: Regular Rate and Rhythm Gastrointestinal: Yes: Normal Bowel Sounds, Soft, not tender. Integumentary: Yes: Other (heel ulcer-- wound care/ i/d following -- dressing + Neurological: Yes: Alert/ awake. calm Assessment/Plan clinically stable chronic issues on asacol continue with local wound care awaiting str placement-- Per porter sample case -- issues with insurance continue present care will follow. discussed with nursing staff also. medically stable for d/c Problem List - Problems (1) Acute diarrhea Code(s): R19.7 - DIARRHEA, UNSPECIFIED (2) Bilateral pressure ulcer of feet Code(s): L89.899 - PRESSURE ULCER OF OTHER SITE, UNSPECIFIED STAGE (3) ESRD (end stage renal disease) Code(s): N18.6 - END STAGE RENAL DISEASE
[2018-08-25] MEDS: CALCIUM ACETATE 667 MG CAPSULE (FP) PO SCH ×2 (12:14→16:50)
[2018-08-25] MEDS: LACTOBACILLUS ACIDOPHILUS 1 TABLET PO SCH (12:14)
[2018-08-25] MEDS: COLLAGENASE CLOSTRIDIUM HIST. 30 GRAMS TUBE TP SCH (12:15)
[2018-08-25] MEDS: DULoxetine HCL 20 MG CAPSULE.DR (FP) PO SCH (12:15)
--- NOTE | 2018-08-25 12:38 | PN ---
Progress Note, Physician History of Present Illness: stable doing well eating no complaints - Current Medication List Current Medications: Active Medications Calamine (Calamine 8% Topical Lotion -) 1 applic TP QID PRN PRN Reason: FOR ITCHING Last Admin: 08/25/18 12:16 Dose: 1 applic Calcium Acetate (Phoslo -) 1,334 mg PO TIDCM [facility] Last Admin: 08/25/18 12:14 Dose: Not Given Collagenase (Santyl -) 1 applic TP DAILY [facility] Last Admin: 08/25/18 12:15 Dose: 1 applic Diphenhydramine HCl (Benadryl -) 25 mg PO Q6H PRN PRN Reason: FOR ITCHING Last Admin: 08/17/18 22:06 Dose: 25 mg Duloxetine HCl (Cymbalta -) 40 mg PO DAILY [facility] Last Admin: 08/25/18 12:15 Dose: 40 mg Sodium Chloride (Normal Saline -) 250 mls @ 3,000 mls/hr IV PRN PRN PRN Reason: Hypotension during Dialysis Stop: 08/25/18 14:13 Lactobacillus Acidophilus (Bacid -) 1 tab PO DAILY [facility] Last Admin: 08/25/18 12:14 Dose: 1 tab Loperamide HCl (Imodium -) 2 mg PO Q8H PRN PRN Reason: DIARRHEA Last Admin: 08/25/18 12:14 Dose: 2 mg Mesalamine (Asacol Hd -) 800 mg PO TID [facility] Last Admin: 08/25/18 07:14 Dose: 800 mg Mirtazapine (Remeron -) 7.5 mg PO HS [facility] Last Admin: 08/24/18 22:31 Dose: 7.5 mg Tenofovir Disoproxil Fumarate (Viread -) 300 mg PO Th [facility] Last Admin: 08/24/18 14:18 Dose: 300 mg - Objective Vital Signs: Vital Signs Temperature 98.4 F 08/25/18 10:25 Pulse Rate 95 H 08/25/18 11:00 Respiratory Rate 18 08/25/18 11:00 Blood Pressure 99/50 L 08/25/18 11:00 O2 Sat by Pulse Oximetry (%) 98 08/24/18 21:00 Constitutional: Yes: No Distress, Calm Cardiovascular: Yes: Regular Rate and Rhythm Respiratory: Yes: Regular, CTA Bilaterally Gastrointestinal: Yes: Normal Bowel Sounds, Soft Musculoskeletal: Yes: WNL Extremities: Yes: Other Wound/Incision: Yes: Dressing Dry and Intact, Other (b/l heel ulcer) Neurological: Yes: Alert, Oriented Psychiatric: Yes: Alert, Oriented Labs: CBC, BMP 08/23/18 10:15 08/23/18 10:15 INR, PTT INR 1.01 (0.83-1.09) 07/24/18 08:30 Assessment/Plan Assessment/Plan Problem List - Problems (1) Acute diarrhea Code(s): R19.7 - DIARRHEA, UNSPECIFIED (2) Bilateral pressure ulcer of feet Code(s): L89.899 - PRESSURE ULCER OF OTHER SITE, UNSPECIFIED STAGE (3) C. difficile colitis Code(s): A04.72 - ENTEROCOLITIS D/T CLOSTRIDIUM DIFFICILE, NOT SPCF RECUR (4) Chronic diarrhea Code(s): K52.9 - NONINFECTIVE GASTROENTERITIS AND COLITIS, UNSPECIFIED (5) Diabetic foot ulcer Code(s): E11.621 - TYPE 2 DIABETES MELLITUS WITH FOOT ULCER; L97.509 - NON- PRESSURE CHRONIC ULCER OTH PRT UNSP FOOT W UNSP SEVERITY Qualifiers: Diabetic foot ulcer location: heel Diabetes mellitus type: other specified (including JADON) Laterality: unspecified laterality Non-pressure ulcer stage : unspecified non-pressure ulcer stage Qualified Code(s): E13.621 - Other specified diabetes mellitus with foot ulcer; L97.409 - Non-pressure chronic ulcer of unspecified heel and midfoot with unspecified severity (6) ESRD (end stage renal disease) Code(s): N18.6 - END STAGE RENAL DISEASE (7) Generalized weakness Code(s): R53.1 - WEAKNESS (8) Sacral decubitus ulcer Code(s): L89.159 - PRESSURE ULCER OF SACRAL REGION, UNSPECIFIED STAGE 9 left heel wound 10 osteo of the heel plan continue wound care nutrition rest as per the team watch for depression
[2018-08-25 13:13] LABS: HEMATOCRIT 27.3 % (35.4-49); HEMOGLOBIN 9.1 GM/dL (11.7-16.9); MCH 31.1 pg (25.7-33.7); MCHC 33.3 g/dl (32.0-35.9); MEAN CELL VOLUME 93.4 fl (80-96); MEAN PLT VOLUME 10.5 fl (7.5-11.1); PLATELET COUNT 68 K/MM3 (134-434); RBC 2.92 M/mm3 (4.00-5.60); RDW 15.4 % (11.9-15.9); WHITE BLOOD COUNT 6.5 K/mm3 (4.0-10.0)
[2018-08-25 13:55] LABS: ANION GAP 11 MMOL/L (8-16); BLOOD UREA NITROGEN 20 mg/dL (7-18); CALCIUM 7.3 mg/dL (8.5-10.1); CHLORIDE 103 mmol/L (98-107); CO2 26 mmol/L (21-32); CREATININE 7.3 mg/dL (0.55-1.3); GLUCOSE,RANDOM 110 mg/dL (74-106); POTASSIUM 3.4 mmol/L (3.5-5.1); SODIUM 139 mmol/L (136-145)
[2018-08-25] MEDS ORDERED: EPOETIN ALFA 2,000 UNIT/1 ML VIAL IVPUSH ONE (14:13)
--- NOTE | 2018-08-25 16:27 | PN ---
Progress Note, Physician History of Present Illness: Pt seen and examined at bedside. He again signed off of HD early. - Current Medication List Current Medications: Active Medications Calamine (Calamine 8% Topical Lotion -) 1 applic TP QID PRN PRN Reason: FOR ITCHING Last Admin: 08/25/18 12:16 Dose: 1 applic Calcium Acetate (Phoslo -) 1,334 mg PO TIDCM [facility] Last Admin: 08/25/18 12:14 Dose: Not Given Collagenase (Santyl -) 1 applic TP DAILY [facility] Last Admin: 08/25/18 12:15 Dose: 1 applic Diphenhydramine HCl (Benadryl -) 25 mg PO Q6H PRN PRN Reason: FOR ITCHING Last Admin: 08/17/18 22:06 Dose: 25 mg Duloxetine HCl (Cymbalta -) 40 mg PO DAILY [facility] Last Admin: 08/25/18 12:15 Dose: 40 mg Lactobacillus Acidophilus (Bacid -) 1 tab PO DAILY [facility] Last Admin: 08/25/18 12:14 Dose: 1 tab Loperamide HCl (Imodium -) 2 mg PO Q8H PRN PRN Reason: DIARRHEA Last Admin: 08/25/18 12:14 Dose: 2 mg Mesalamine (Asacol Hd -) 800 mg PO TID [facility] Last Admin: 08/25/18 14:07 Dose: 800 mg Mirtazapine (Remeron -) 7.5 mg PO HS [facility] Last Admin: 08/24/18 22:31 Dose: 7.5 mg Tenofovir Disoproxil Fumarate (Viread -) 300 mg PO Th [facility] Last Admin: 08/24/18 14:18 Dose: 300 mg - Objective Vital Signs: Vital Signs Temperature 98 F 08/25/18 15:20 Pulse Rate 109 H 08/25/18 15:20 Respiratory Rate 18 08/25/18 15:20 Blood Pressure 128/78 08/25/18 15:20 O2 Sat by Pulse Oximetry (%) 98 08/25/18 09:00 Constitutional: Yes: Calm Eyes: Yes: Conjunctiva Clear HENT: Yes: Atraumatic Neck: Yes: Supple Cardiovascular: Yes: S1, S2 Respiratory: Yes: CTA Bilaterally Gastrointestinal: Yes: Soft Genitourinary: Yes: WNL Musculoskeletal: Yes: Muscle Weakness Edema: No Wound/Incision: Yes: Dressing Dry and Intact Neurological: Yes: Oriented Labs: CBC, BMP 08/25/18 10:30 08/25/18 10:30 INR, PTT INR 1.01 (0.83-1.09) 07/24/18 08:30 Problem List - Problems (1) ESRD (end stage renal disease) Code(s): N18.6 - END STAGE RENAL DISEASE Assessment/Plan Current Medications Generic Name Dose Route Start Last Admin Trade Name Freq PRN Reason Stop Dose Admin Calamine 1 applic 08/17/18 13:47 08/25/18 12:16 Calamine 8% Topical Lotion - TP 1 applic QID PRN Administration FOR ITCHING Calcium Acetate 1,334 mg 08/10/18 17:30 08/25/18 12:14 Phoslo - PO Not Given TIDCM [facility] Collagenase 1 applic 08/11/18 10:00 08/25/18 12:15 Santyl - TP 1 applic DAILY [facility] Administration Diphenhydramine HCl 25 mg 08/10/18 17:16 08/17/18 22:06 Benadryl - PO 25 mg Q6H PRN Administration FOR ITCHING Duloxetine HCl 40 mg 08/24/18 10:00 08/25/18 12:15 Cymbalta - PO 40 mg DAILY [facility] Administration Lactobacillus Acidophilus 1 tab 08/11/18 10:00 08/25/18 12:14 Bacid - PO 1 tab DAILY [facility] Administration Loperamide HCl 2 mg 08/21/18 12:35 08/25/18 12:14 Imodium - PO 2 mg Q8H PRN Administration DIARRHEA Mesalamine 800 mg 08/10/18 14:00 08/25/18 14:07 Asacol Hd - PO 800 mg TID [facility] Administration Mirtazapine 7.5 mg 08/23/18 22:00 08/24/18 22:31 Remeron - PO 7.5 mg HS [facility] Administration Potassium Chloride 20 meq 08/25/18 16:24 K-Dur - PO 08/25/18 16:25 ONCE ONE Tenofovir Disoproxil Fumarate 300 mg 08/17/18 14:00 08/24/18 14:18 Viread - PO 300 mg Th [facility] Administration Impression 1. ESRD 2. anemia 3. hypokalemia 4. Hep B 5. diarrhea 6. depression 7. non-compliance with HD 8. acidosis - metabolic 9. hypocalcemia 10. hearing loss 11. sepsis Plan - HD today - replace potassium - next HD on Tuesday - d/c planning - encourage PO intake - wound care to leg - will follow
[2018-08-25] MEDS ORDERED: POTASSIUM CHLORIDE TABS 20 MEQ TABLET.ER (FP) PO ONE (16:45)
[2018-08-25] MEDS: MIRTAZAPINE 15 MG TABLET (FP) PO SCH (23:24)
[2018-08-26] MEDS: BANATROL PLUS POWDER PACKET PO SCH ×3 (07:05→22:21)
[2018-08-26] MEDS: MESALAMINE 800 MG TABLET.DR PO SCH ×3 (07:06→22:20)
[2018-08-26] MEDS: CALCIUM ACETATE 667 MG CAPSULE (FP) PO SCH ×3 (08:09→17:03)
[2018-08-26] MEDS ORDERED: PT OWN MED DRAWER 7, Y5N ONE (10:34)
[2018-08-26] MEDS: DULoxetine HCL 20 MG CAPSULE.DR (FP) PO SCH (11:14)
[2018-08-26] MEDS: LACTOBACILLUS ACIDOPHILUS 1 TABLET PO SCH (11:14)
[2018-08-26] MEDS: COLLAGENASE CLOSTRIDIUM HIST. 30 GRAMS TUBE TP SCH (11:15)
--- NOTE | 2018-08-26 13:04 | PN ---
Progress Note (short form) - Note Progress Note: eating now has diarrhea but ;ess Vital Signs - 24 hr 08/25/18 08/25/18 08/25/18 15:20 18:00 21:00 Temperature 98 F 98.7 F Pulse Rate 109 H 108 H Respiratory 18 18 Rate Blood Pressure 128/78 109/74 O2 Sat by Pulse 98 Oximetry (%) 08/26/18 08/26/18 07:00 09:00 Temperature 97.7 F 97.9 F Pulse Rate 97 H 101 H Respiratory 18 18 Rate Blood Pressure 103/58 L 115/63 O2 Sat by Pulse Oximetry (%) Current Medications Generic Name Dose Route Start Last Admin Trade Name Freq PRN Reason Stop Dose Admin Calamine 1 applic 08/17/18 13:47 08/25/18 12:16 Calamine 8% Topical Lotion - TP 1 applic QID PRN Administration FOR ITCHING Calcium Acetate 1,334 mg 08/10/18 17:30 08/26/18 11:40 Phoslo - PO Not Given TIDCM [facility] Collagenase 1 applic 08/11/18 10:00 08/26/18 11:15 Santyl - TP 1 applic DAILY [facility] Administration Diphenhydramine HCl 25 mg 08/10/18 17:16 08/17/18 22:06 Benadryl - PO 25 mg Q6H PRN Administration FOR ITCHING Duloxetine HCl 40 mg 08/24/18 10:00 08/26/18 11:14 Cymbalta - PO 40 mg DAILY [facility] Administration Lactobacillus Acidophilus 1 tab 08/11/18 10:00 08/26/18 11:14 Bacid - PO 1 tab DAILY [facility] Administration Loperamide HCl 2 mg 08/21/18 12:35 08/25/18 12:14 Imodium - PO 2 mg Q8H PRN Administration DIARRHEA Mesalamine 800 mg 08/10/18 14:00 08/26/18 07:06 Asacol Hd - PO Not Given TID [facility] Mirtazapine 7.5 mg 08/23/18 22:00 08/25/18 23:24 Remeron - PO Not Given HS [facility] Tenofovir Disoproxil Fumarate 300 mg 08/17/18 14:00 08/24/18 14:18 Viread - PO 300 mg Th [facility] Administration Laboratory Results - last 24 hr 08/25/18 08/25/18 10:30 10:30 WBC 6.5 RBC 2.92 L Hgb 9.1 L Hct 27.3 L MCV 93.4 MCH 31.1 MCHC 33.3 RDW 15.4 Plt Count 68 L D MPV 10.5 Sodium 139 Potassium 3.4 L Chloride 103 Carbon Dioxide 26 Anion Gap 11 BUN 20 H Creatinine 7.3 H Creat Clearance w eGFR 7.98 Random Glucose 110 H Calcium 7.3 L Constitutional: Yes: No Distress, Calm Eyes: Yes: Conjunctiva Clear Neck: Yes: Supple Cardiovascular: Yes: Regular Rate and Rhythm Gastrointestinal: Yes: Normal Bowel Sounds, Soft, not tender Edema: yes- hands Integumentary: Yes: Other (history of heel ulcers--- follows at wound care.) Neurological: Yes: Alert Assessment/Plan continue with meds medically ready for dc to STR off antibiotics HD per renal Problem List - Problems (1) Acute diarrhea Code(s): R19.7 - DIARRHEA, UNSPECIFIED (2) Bilateral pressure ulcer of feet Code(s): L89.899 - PRESSURE ULCER OF OTHER SITE, UNSPECIFIED STAGE (3) C. difficile colitis Code(s): A04.72 - ENTEROCOLITIS D/T CLOSTRIDIUM DIFFICILE, NOT SPCF RECUR (4) Chronic diarrhea Code(s): K52.9 - NONINFECTIVE GASTROENTERITIS AND COLITIS, UNSPECIFIED (5) Diabetic foot ulcer Code(s): E11.621 - TYPE 2 DIABETES MELLITUS WITH FOOT ULCER; L97.509 - NON- PRESSURE CHRONIC ULCER OTH PRT UNSP FOOT W UNSP SEVERITY Qualifiers: Diabetic foot ulcer location: heel Diabetes mellitus type: other specified (including JADON) Laterality: unspecified laterality Non-pressure ulcer stage : unspecified non-pressure ulcer stage Qualified Code(s): E13.621 - Other specified diabetes mellitus with foot ulcer; L97.409 - Non-pressure chronic ulcer of unspecified heel and midfoot with unspecified severity (6) ESRD (end stage renal disease) Code(s): N18.6 - END STAGE RENAL DISEASE (7) Generalized weakness Code(s): R53.1 - WEAKNESS (8) Sacral decubitus ulcer Code(s): L89.159 - PRESSURE ULCER OF SACRAL REGION, UNSPECIFIED STAGE
--- NOTE | 2018-08-26 14:02 | PN ---
Progress Note, Physician History of Present Illness: stable eating still with dirrhoea but improving - Current Medication List Current Medications: Active Medications Calamine (Calamine 8% Topical Lotion -) 1 applic TP QID PRN PRN Reason: FOR ITCHING Last Admin: 08/25/18 12:16 Dose: 1 applic Calcium Acetate (Phoslo -) 1,334 mg PO TIDCM [facility] Last Admin: 08/26/18 11:40 Dose: Not Given Collagenase (Santyl -) 1 applic TP DAILY [facility] Last Admin: 08/26/18 11:15 Dose: 1 applic Diphenhydramine HCl (Benadryl -) 25 mg PO Q6H PRN PRN Reason: FOR ITCHING Last Admin: 08/17/18 22:06 Dose: 25 mg Duloxetine HCl (Cymbalta -) 40 mg PO DAILY [facility] Last Admin: 08/26/18 11:14 Dose: 40 mg Lactobacillus Acidophilus (Bacid -) 1 tab PO DAILY [facility] Last Admin: 08/26/18 11:14 Dose: 1 tab Loperamide HCl (Imodium -) 2 mg PO Q8H PRN PRN Reason: DIARRHEA Last Admin: 08/25/18 12:14 Dose: 2 mg Mesalamine (Asacol Hd -) 800 mg PO TID [facility] Last Admin: 08/26/18 07:06 Dose: Not Given Mirtazapine (Remeron -) 7.5 mg PO HS [facility] Last Admin: 08/25/18 23:24 Dose: Not Given Tenofovir Disoproxil Fumarate (Viread -) 300 mg PO Th [facility] Last Admin: 08/24/18 14:18 Dose: 300 mg - Objective Vital Signs: Vital Signs Temperature 97.9 F 08/26/18 09:00 Pulse Rate 101 H 08/26/18 09:00 Respiratory Rate 18 08/26/18 09:00 Blood Pressure 115/63 08/26/18 09:00 O2 Sat by Pulse Oximetry (%) 98 08/25/18 21:00 Constitutional: Yes: No Distress, Calm Cardiovascular: Yes: Regular Rate and Rhythm Respiratory: Yes: Regular, CTA Bilaterally Gastrointestinal: Yes: Normal Bowel Sounds, Soft Musculoskeletal: Yes: Other Wound/Incision: Yes: Dressing Dry and Intact Neurological: Yes: Alert, Oriented Psychiatric: Yes: Alert, Oriented Labs: CBC, BMP 08/25/18 10:30 12/28/18 10:30 INR, PTT INR 1.01 (0.83-1.09) 07/24/18 08:30 Assessment/Plan Assessment/Plan Problem List - Problems (1) Acute diarrhea Code(s): R19.7 - DIARRHEA, UNSPECIFIED (2) Bilateral pressure ulcer of feet Code(s): L89.899 - PRESSURE ULCER OF OTHER SITE, UNSPECIFIED STAGE (3) C. difficile colitis Code(s): A04.72 - ENTEROCOLITIS D/T CLOSTRIDIUM DIFFICILE, NOT SPCF RECUR (4) Chronic diarrhea Code(s): K52.9 - NONINFECTIVE GASTROENTERITIS AND COLITIS, UNSPECIFIED (5) Diabetic foot ulcer Code(s): E11.621 - TYPE 2 DIABETES MELLITUS WITH FOOT ULCER; L97.509 - NON- PRESSURE CHRONIC ULCER OTH PRT UNSP FOOT W UNSP SEVERITY Qualifiers: Diabetic foot ulcer location: heel Diabetes mellitus type: other specified (including JADON) Laterality: unspecified laterality Non-pressure ulcer stage : unspecified non-pressure ulcer stage Qualified Code(s): E13.621 - Other specified diabetes mellitus with foot ulcer; L97.409 - Non-pressure chronic ulcer of unspecified heel and midfoot with unspecified severity (6) ESRD (end stage renal disease) Code(s): N18.6 - END STAGE RENAL DISEASE (7) Generalized weakness Code(s): R53.1 - WEAKNESS (8) Sacral decubitus ulcer Code(s): L89.159 - PRESSURE ULCER OF SACRAL REGION, UNSPECIFIED STAGE 9 left heel wound 10 osteo of the heel plan continue wound care nutrition rest as per the team watch for depression
[2018-08-26] MEDS ORDERED: SODIUM CHLORIDE 250 ML IV PRN (16:31)
--- NOTE | 2018-08-26 16:31 | PN ---
Progress Note, Physician History of Present Illness: Pt seen and examined at bedside. He is awake and alert. He denies shortness of breath. He wants only 2 hours of HD tomorrow. - Current Medication List Current Medications: Active Medications Calamine (Calamine 8% Topical Lotion -) 1 applic TP QID PRN PRN Reason: FOR ITCHING Last Admin: 08/25/18 12:16 Dose: 1 applic Calcium Acetate (Phoslo -) 1,[address] [facility] Last Admin: 08/26/18 11:40 Dose: Not Given Collagenase (Santyl -) [address] [facility] Last Admin: 08/26/18 11:15 Dose: 1 applic Diphenhydramine HCl (Benadryl -) 25 mg PO Q6H PRN PRN Reason: FOR ITCHING Last Admin: 08/17/18 22:06 Dose: 25 mg Duloxetine HCl (Cymbalta -) [address] [facility] Last Admin: 08/26/18 11:14 Dose: 40 mg Lactobacillus Acidophilus (Bacid -) [address] [facility] Last Admin: 08/26/18 11:14 Dose: 1 tab Loperamide HCl (Imodium -) 2 mg PO Q8H PRN PRN Reason: DIARRHEA Last Admin: 08/25/18 12:14 Dose: 2 mg Mesalamine (Asacol Hd -) [address] [facility] Last Admin: 08/26/18 14:18 Dose: 800 mg Mirtazapine (Remeron -) 7.[address] [facility] Last Admin: 08/25/18 23:24 Dose: Not Given Tenofovir Disoproxil Fumarate (Viread -) [address] [facility] Last Admin: 08/24/18 14:18 Dose: 300 mg - Objective Vital Signs: Vital Signs Temperature 97.9 F 08/26/18 09:00 Pulse Rate 101 H 08/26/18 09:00 Respiratory Rate 18 08/26/18 09:00 Blood Pressure 115/63 08/26/18 09:00 O2 Sat by Pulse Oximetry (%) 98 08/25/18 21:00 Constitutional: Yes: Calm Eyes: Yes: Conjunctiva Clear HENT: Yes: Atraumatic Neck: Yes: Supple Cardiovascular: Yes: S1, S2 Respiratory: Yes: CTA Bilaterally Gastrointestinal: Yes: Soft Genitourinary: Yes: Incontinence Edema: No Neurological: Yes: Oriented Psychiatric: Yes: Oriented Labs: CBC, BMP 08/25/18 10:30 08/25/18 10:30 INR, PTT INR 1.01 (0.83-1.09) 07/24/18 08:30 Problem List - Problems (1) ESRD (end stage renal disease) Code(s): N18.6 - END STAGE RENAL DISEASE Assessment/Plan Current Medications Generic Name Dose Route Start Last Admin Trade Name Freq PRN Reason Stop Dose Admin Calamine 1 applic 08/17/18 13:47 08/25/18 12:16 Calamine 8% Topical Lotion - TP 1 applic QID PRN Administration FOR ITCHING Calcium Acetate 1,334 mg 08/10/18 17:30 08/26/18 11:40 Phoslo - PO Not Given TIDCM [facility] Collagenase 1 applic 08/11/18 10:00 08/26/18 11:15 Santyl - TP 1 applic DAILY [facility] Administration Diphenhydramine HCl 25 mg 08/10/18 17:16 08/17/18 22:06 Benadryl - PO 25 mg Q6H PRN Administration FOR ITCHING Duloxetine HCl 40 mg 08/24/18 10:00 08/26/18 11:14 Cymbalta - PO 40 mg DAILY [facility] Administration Lactobacillus Acidophilus 1 tab 08/11/18 10:00 08/26/18 11:14 Bacid - PO 1 tab DAILY [facility] Administration Loperamide HCl 2 mg 08/21/18 12:35 08/25/18 12:14 Imodium - PO 2 mg Q8H PRN Administration DIARRHEA Mesalamine 800 mg 08/10/18 14:00 08/26/18 14:18 Asacol Hd - PO 800 mg TID [facility] Administration Mirtazapine 7.5 mg 08/23/18 22:00 08/25/18 23:24 Remeron - PO Not Given HS [facility] Tenofovir Disoproxil Fumarate 300 mg 08/17/18 14:00 08/24/18 14:18 Viread - PO 300 mg Th [facility] Administration Impression 1. ESRD 2. anemia 3. hypokalemia 4. Hep B 5. diarrhea 6. depression 7. non-compliance with HD 8. acidosis - metabolic 9. hypocalcemia 10. hearing loss 11. sepsis Plan - HD in am - encourage PO intake - d/c planning - wound care to leg - will follow
[2018-08-26] MEDS: MIRTAZAPINE 15 MG TABLET (FP) PO SCH (22:20)
[2018-08-27] MEDS: BANATROL PLUS POWDER PACKET PO SCH ×3 (06:11→23:28)
[2018-08-27] MEDS: MESALAMINE 800 MG TABLET.DR PO SCH ×3 (06:11→23:27)
[2018-08-27] MEDS ORDERED: PT OWN MED DRAWER 7, Y5N ONE ×2 (08:09→11:32)
[2018-08-27] MEDS: CALCIUM ACETATE 667 MG CAPSULE (FP) PO SCH ×3 (08:17→17:56)
--- NOTE | 2018-08-27 09:35 | PN ---
Problem List - Problems (1) Acute diarrhea Code(s): R19.7 - DIARRHEA, UNSPECIFIED (2) Bilateral pressure ulcer of feet Code(s): L89.899 - PRESSURE ULCER OF OTHER SITE, UNSPECIFIED STAGE (3) C. difficile colitis Code(s): A04.72 - ENTEROCOLITIS D/T CLOSTRIDIUM DIFFICILE, NOT SPCF RECUR (4) Chronic diarrhea Code(s): K52.9 - NONINFECTIVE GASTROENTERITIS AND COLITIS, UNSPECIFIED (5) Diabetic foot ulcer Code(s): E11.621 - TYPE 2 DIABETES MELLITUS WITH FOOT ULCER; L97.509 - NON- PRESSURE CHRONIC ULCER OTH PRT UNSP FOOT W UNSP SEVERITY Qualifiers: Diabetic foot ulcer location: heel Diabetes mellitus type: other specified (including JADON) Laterality: unspecified laterality Non-pressure ulcer stage : unspecified non-pressure ulcer stage Qualified Code(s): E13.621 - Other specified diabetes mellitus with foot ulcer; L97.409 - Non-pressure chronic ulcer of unspecified heel and midfoot with unspecified severity (6) ESRD (end stage renal disease) Code(s): N18.6 - END STAGE RENAL DISEASE (7) Generalized weakness Code(s): R53.1 - WEAKNESS (8) Sacral decubitus ulcer Code(s): L89.159 - PRESSURE ULCER OF SACRAL REGION, UNSPECIFIED STAGE
[2018-08-27] MEDS: LACTOBACILLUS ACIDOPHILUS 1 TABLET PO SCH (09:51)
[2018-08-27] MEDS: DULoxetine HCL 20 MG CAPSULE.DR (FP) PO SCH (12:19)
[2018-08-27] MEDS: COLLAGENASE CLOSTRIDIUM HIST. 30 GRAMS TUBE TP SCH (12:20)
--- NOTE | 2018-08-27 13:31 | PN ---
Progress Note, Physician History of Present Illness: Pt seen and examined at bedside. He is awake and alert. He denies shortness of breath. - Current Medication List Current Medications: Active Medications Calamine (Calamine 8% Topical Lotion -) 1 applic TP QID PRN PRN Reason: FOR ITCHING Last Admin: 08/25/18 12:16 Dose: 1 applic Calcium Acetate (Phoslo -) 1,334 mg PO TIDCM [facility] Last Admin: 08/27/18 13:02 Dose: Not Given Collagenase (Santyl -) 1 applic TP DAILY [facility] Last Admin: 08/27/18 12:20 Dose: 1 applic Diphenhydramine HCl (Benadryl -) 25 mg PO Q6H PRN PRN Reason: FOR ITCHING Last Admin: 08/17/18 22:06 Dose: 25 mg Duloxetine HCl (Cymbalta -) 40 mg PO DAILY [facility] Last Admin: 08/27/18 12:19 Dose: 40 mg Epoetin Arjun (Epogen -) 6,000 unit IVPUSH ONCE ONE Stop: 08/27/18 16:32 Sodium Chloride (Normal Saline -) 250 mls @ 3,000 mls/hr IV PRN PRN PRN Reason: Hypotension during Dialysis Stop: 08/27/18 16:31 Lactobacillus Acidophilus (Bacid -) 1 tab PO DAILY [facility] Last Admin: 08/27/18 09:51 Dose: 1 tab Loperamide HCl (Imodium -) 2 mg PO Q8H PRN PRN Reason: DIARRHEA Last Admin: 08/25/18 12:14 Dose: 2 mg Mesalamine (Asacol Hd -) 800 mg PO TID [facility] Last Admin: 08/27/18 06:11 Dose: 800 mg Mirtazapine (Remeron -) 7.5 mg PO HS [facility] Last Admin: 08/26/18 22:20 Dose: Not Given Tenofovir Disoproxil Fumarate (Viread -) 300 mg PO Th [facility] Last Admin: 08/24/18 14:18 Dose: 300 mg - Objective Vital Signs: Vital Signs Temperature 98.2 F 08/27/18 06:32 Pulse Rate 88 08/27/18 06:32 Respiratory Rate 18 08/27/18 09:00 Blood Pressure 109/64 08/27/18 06:32 O2 Sat by Pulse Oximetry (%) 99 08/26/18 09:00 Constitutional: Yes: Calm Eyes: Yes: Conjunctiva Clear HENT: Yes: Atraumatic Neck: Yes: Supple Cardiovascular: Yes: S1, S2 Respiratory: Yes: CTA Bilaterally Gastrointestinal: Yes: Soft Genitourinary: Yes: Incontinence Extremities: Yes: WNL Edema: No Neurological: Yes: Oriented Psychiatric: Yes: Oriented Labs: CBC, BMP 08/25/18 10:30 08/25/18 10:30 INR, PTT INR 1.01 (0.83-1.09) 07/24/18 08:30 Problem List - Problems (1) ESRD (end stage renal disease) Code(s): N18.6 - END STAGE RENAL DISEASE Assessment/Plan Current Medications Generic Name Dose Route Start Last Admin Trade Name Freq PRN Reason Stop Dose Admin Calamine 1 applic 08/17/18 13:47 08/25/18 12:16 Calamine 8% Topical Lotion - TP 1 applic QID PRN Administration FOR ITCHING Calcium Acetate 1,334 mg 08/10/18 17:30 08/27/18 13:02 Phoslo - PO Not Given TIDCM [facility] Collagenase 1 applic 08/11/18 10:00 08/27/18 12:20 Santyl - TP 1 applic DAILY [facility] Administration Diphenhydramine HCl 25 mg 08/10/18 17:16 08/17/18 22:06 Benadryl - PO 25 mg Q6H PRN Administration FOR ITCHING Duloxetine HCl 40 mg 08/24/18 10:00 08/27/18 12:19 Cymbalta - PO 40 mg DAILY [facility] Administration Epoetin Arjun 6,000 unit 08/27/18 16:31 Epogen - IVPUSH 08/27/18 16:32 ONCE ONE Sodium Chloride 250 mls @ 3,000 mls/hr 08/26/18 16:31 Normal Saline - IV 08/27/18 16:31 PRN PRN Hypotension during Dialysis Lactobacillus Acidophilus 1 tab 08/11/18 10:00 08/27/18 09:51 Bacid - PO 1 tab DAILY [facility] Administration Loperamide HCl 2 mg 08/21/18 12:35 08/25/18 12:14 Imodium - PO 2 mg Q8H PRN Administration DIARRHEA Mesalamine 800 mg 08/10/18 14:00 08/27/18 06:11 Asacol Hd - PO 800 mg TID [facility] Administration Mirtazapine 7.5 mg 08/23/18 22:00 08/26/18 22:20 Remeron - PO Not Given HS [facility] Tenofovir Disoproxil Fumarate 300 mg 08/17/18 14:00 08/24/18 14:18 Viread - PO 300 mg Th [facility] Administration Impression 1. ESRD 2. anemia 3. hypokalemia 4. Hep B 5. diarrhea 6. depression 7. non-compliance with HD 8. acidosis - metabolic 9. hypocalcemia 10. hearing loss 11. sepsis Plan - he refused HD today - will arrange for HD in am - encourage PO intake - d/c planning - wound care to leg - will follow
--- NOTE | 2018-08-27 15:31 | PN ---
Progress Note, Physician History of Present Illness: stable refused dialysis - Current Medication List Current Medications: Active Medications Calamine (Calamine 8% Topical Lotion -) 1 applic TP QID PRN PRN Reason: FOR ITCHING Last Admin: 08/25/18 12:16 Dose: 1 applic Calcium Acetate (Phoslo -) 1,334 mg PO TIDCM [facility] Last Admin: 08/27/18 13:02 Dose: Not Given Collagenase (Santyl -) 1 applic TP DAILY [facility] Last Admin: 08/27/18 12:20 Dose: 1 applic Diphenhydramine HCl (Benadryl -) 25 mg PO Q6H PRN PRN Reason: FOR ITCHING Last Admin: 08/17/18 22:06 Dose: 25 mg Duloxetine HCl (Cymbalta -) 40 mg PO DAILY [facility] Last Admin: 08/27/18 12:19 Dose: 40 mg Epoetin Arjun (Epogen -) 6,000 unit IVPUSH ONCE ONE Stop: 08/27/18 16:32 Sodium Chloride (Normal Saline -) 250 mls @ 3,000 mls/hr IV PRN PRN PRN Reason: Hypotension during Dialysis Stop: 08/27/18 16:31 Lactobacillus Acidophilus (Bacid -) 1 tab PO DAILY [facility] Last Admin: 08/27/18 09:51 Dose: 1 tab Loperamide HCl (Imodium -) 2 mg PO Q8H PRN PRN Reason: DIARRHEA Last Admin: 08/25/18 12:14 Dose: 2 mg Mesalamine (Asacol Hd -) 800 mg PO TID [facility] Last Admin: 08/27/18 14:54 Dose: 800 mg Mirtazapine (Remeron -) 7.5 mg PO HS [facility] Last Admin: 08/26/18 22:20 Dose: Not Given Tenofovir Disoproxil Fumarate (Viread -) 300 mg PO Th [facility] Last Admin: 08/24/18 14:18 Dose: 300 mg - Objective Vital Signs: Vital Signs Temperature 98.2 F 08/27/18 06:32 Pulse Rate 88 08/27/18 06:32 Respiratory Rate 18 08/27/18 09:00 Blood Pressure 109/64 08/27/18 06:32 O2 Sat by Pulse Oximetry (%) 99 08/26/18 09:00 Constitutional: Yes: No Distress, Calm Cardiovascular: Yes: Regular Rate and Rhythm Respiratory: Yes: Regular, CTA Bilaterally Gastrointestinal: Yes: Normal Bowel Sounds, Soft Musculoskeletal: Yes: Other Extremities: Yes: Other Wound/Incision: Yes: Dressing Dry and Intact Neurological: Yes: Alert, Oriented Psychiatric: Yes: Alert, Oriented Labs: CBC, BMP 08/25/18 10:30 08/25/18 10:30 INR, PTT INR 1.01 (0.83-1.09) 07/24/18 08:30 Assessment/Plan Assessment/Plan Problem List - Problems (1) Acute diarrhea Code(s): R19.7 - DIARRHEA, UNSPECIFIED (2) Bilateral pressure ulcer of feet Code(s): L89.899 - PRESSURE ULCER OF OTHER SITE, UNSPECIFIED STAGE (3) C. difficile colitis Code(s): A04.72 - ENTEROCOLITIS D/T CLOSTRIDIUM DIFFICILE, NOT SPCF RECUR (4) Chronic diarrhea Code(s): K52.9 - NONINFECTIVE GASTROENTERITIS AND COLITIS, UNSPECIFIED (5) Diabetic foot ulcer Code(s): E11.621 - TYPE 2 DIABETES MELLITUS WITH FOOT ULCER; L97.509 - NON- PRESSURE CHRONIC ULCER OTH PRT UNSP FOOT W UNSP SEVERITY Qualifiers: Diabetic foot ulcer location: heel Diabetes mellitus type: other specified (including JADON) Laterality: unspecified laterality Non-pressure ulcer stage : unspecified non-pressure ulcer stage Qualified Code(s): E13.621 - Other specified diabetes mellitus with foot ulcer; L97.409 - Non-pressure chronic ulcer of unspecified heel and midfoot with unspecified severity (6) ESRD (end stage renal disease) Code(s): N18.6 - END STAGE RENAL DISEASE (7) Generalized weakness Code(s): R53.1 - WEAKNESS (8) Sacral decubitus ulcer Code(s): L89.159 - PRESSURE ULCER OF SACRAL REGION, UNSPECIFIED STAGE 9 left heel wound 10 osteo of the heel plan continue wound care nutrition rest as per the team watch for depression
--- NOTE | 2018-08-27 17:56 | PN ---
Progress Note (short form) - Note Progress Note: eating now has diarrhea Vital Signs - 24 hr 08/26/18 08/27/18 08/27/18 23:21 06:32 09:00 Temperature 97.7 F 98.2 F Pulse Rate 91 H 88 Respiratory 18 18 18 Rate Blood Pressure 107/63 109/64 Current Medications Generic Name Dose Route Start Last Admin Trade Name Freq PRN Reason Stop Dose Admin Calamine 1 applic 08/17/18 13:47 08/25/18 12:16 Calamine 8% Topical Lotion - TP 1 applic QID PRN Administration FOR ITCHING Calcium Acetate 1,334 mg 08/10/18 17:30 08/27/18 13:02 Phoslo - PO Not Given TIDCM IR[facility] Collagenase 1 applic 08/11/18 10:00 08/27/18 12:20 Santyl - TP 1 applic DAILY IR[facility] Administration Diphenhydramine HCl 25 mg 08/10/18 17:16 08/17/18 22:06 Benadryl - PO 25 mg Q6H PRN Administration FOR ITCHING Duloxetine HCl 40 mg 08/24/18 10:00 08/27/18 12:19 Cymbalta - PO 40 mg DAILY IR[facility]IN Administration Epoetin Arjun 6,000 unit 08/27/18 16:31 Epogen - IVPUSH 08/27/18 16:32 ONCE ONE Sodium Chloride 250 mls @ 3,000 mls/hr 08/26/18 16:31 Normal Saline - IV 08/27/18 16:31 PRN PRN Hypotension during Dialysis Lactobacillus Acidophilus 1 tab 08/11/18 10:00 08/27/18 09:51 Bacid - PO 1 tab DAILY [facility] Administration Loperamide HCl 2 mg 08/21/18 12:35 08/25/18 12:14 Imodium - PO 2 mg Q8H PRN Administration DIARRHEA Mesalamine 800 mg 08/10/18 14:00 08/27/18 14:54 Asacol Hd - PO 800 mg TID IRVIN Administration Mirtazapine 7.5 mg 08/23/18 22:00 08/26/18 22:20 Remeron - PO Not Given HS IRVIN Tenofovir Disoproxil Fumarate 300 mg 08/17/18 14:00 08/24/18 14:18 Viread - PO 300 mg Th [facility] Administration Constitutional: Yes: No Distress, Calm Eyes: Yes: Conjunctiva Clear Neck: Yes: Supple Cardiovascular: Yes: Regular Rate and Rhythm Gastrointestinal: Yes: Normal Bowel Sounds, Soft, not tender Edema: yes- hands Integumentary: Yes: Other (history of heel ulcers--- follows at wound care.) Neurological: Yes: Alert Assessment/Plan continue with meds medically ready for dc to STR off antibiotics HD per renal Problem List - Problems (1) Acute diarrhea Code(s): R19.7 - DIARRHEA, UNSPECIFIED (2) Bilateral pressure ulcer of feet Code(s): L89.899 - PRESSURE ULCER OF OTHER SITE, UNSPECIFIED STAGE (3) C. difficile colitis Code(s): A04.72 - ENTEROCOLITIS D/T CLOSTRIDIUM DIFFICILE, NOT SPCF RECUR (4) Chronic diarrhea Code(s): K52.9 - NONINFECTIVE GASTROENTERITIS AND COLITIS, UNSPECIFIED (5) Diabetic foot ulcer Code(s): E11.621 - TYPE 2 DIABETES MELLITUS WITH FOOT ULCER; L97.509 - NON- PRESSURE CHRONIC ULCER OTH PRT UNSP FOOT W UNSP SEVERITY Qualifiers: Diabetic foot ulcer location: heel Diabetes mellitus type: other specified (including JADON) Laterality: unspecified laterality Non-pressure ulcer stage : unspecified non-pressure ulcer stage Qualified Code(s): E13.621 - Other specified diabetes mellitus with foot ulcer; L97.409 - Non-pressure chronic ulcer of unspecified heel and midfoot with unspecified severity (6) ESRD (end stage renal disease) Code(s): N18.6 - END STAGE RENAL DISEASE (7) Generalized weakness Code(s): R53.1 - WEAKNESS (8) Sacral decubitus ulcer Code(s): L89.159 - PRESSURE ULCER OF SACRAL REGION, UNSPECIFIED STAGE
[2018-08-27] MEDS: MIRTAZAPINE 15 MG TABLET (FP) PO SCH (23:28)
--- NOTE | 2018-08-28 01:47 | PN ---
Progress Note (short form) - Note Progress Note: Paged due to pt's BP 84/53, HR 103 on routine vitals check. Nursing staff explained to me pt was asymptomatic. Attended to patient who confirmed that he was not having any symptoms including lightheadedness, headache, shortness of breath. He reports watching tv while resting his eyes. Pt's last dialysis 08/25 due to history of pt refusal. Pt's next dialysis Tuesday per EMR. Given pt is asymptomatic with minimally elevated BP and ESRD with dialysis can observe for now. Suspect possible inaccurate reading from external BP cuffs due to loss of vascular compliance 2/2 to ESRD. If BP further declines, HR elevates further, or pt becomes symptomatic can give 250cc of isotonic fluid given dialysis scheduled for the morning. Gilbert Sheets, DO - IM PGY-2
[2018-08-28] MEDS ORDERED: SODIUM CHLORIDE 250 ML IV STA (05:05)
[2018-08-28] MEDS: MESALAMINE 800 MG TABLET.DR PO SCH ×3 (05:36→21:30)
[2018-08-28] MEDS: BANATROL PLUS POWDER PACKET PO SCH ×2 (05:36→14:57)
[2018-08-28] MEDS: CALCIUM ACETATE 667 MG CAPSULE (FP) PO SCH ×3 (09:26→17:06)
[2018-08-28] MEDS ORDERED: SODIUM CHLORIDE 250 ML IV PRN (09:53)
[2018-08-28 10:16] LABS: HEMATOCRIT 28.5 % (35.4-49); HEMOGLOBIN 8.9 GM/dL (11.7-16.9); MCH 29.5 pg (25.7-33.7); MCHC 31.1 g/dl (32.0-35.9); MEAN CELL VOLUME 94.8 fl (80-96); MEAN PLT VOLUME 9.9 fl (7.5-11.1); PLATELET COUNT 89 K/MM3 (134-434); RBC 3.01 M/mm3 (4.00-5.60); RDW 15.7 % (11.9-15.9); WHITE BLOOD COUNT 8.2 K/mm3 (4.0-10.0)
[2018-08-28] MEDS ORDERED: EPOETIN ALFA 3,000 UNIT/1 ML ML IVPUSH ONE (10:30)
[2018-08-28] MEDS: COLLAGENASE CLOSTRIDIUM HIST. 30 GRAMS TUBE TP SCH (10:30)
[2018-08-28 10:54] LABS: ANION GAP 8 MMOL/L (8-16); BLOOD UREA NITROGEN 38 mg/dL (7-18); CALCIUM 7.8 mg/dL (8.5-10.1); CHLORIDE 114 mmol/L (98-107); CO2 20 mmol/L (21-32); GLUCOSE,RANDOM 79 mg/dL (74-106); POTASSIUM 4.3 mmol/L (3.5-5.1); SODIUM 143 mmol/L (136-145)
--- NOTE | 2018-08-28 11:02 | PN ---
Progress Note (short form) - Note Progress Note: pt seen/ examined chart reviewed awake and comfortable currently being dialyzed Reports that diarrhea is better Nose also reports--- not taking Imodium-- Vital Signs Temp 97.7 F 08/28/18 08:30 Pulse 90 08/28/18 08:30 Resp 17 08/28/18 08:30 BP 86/54 L 08/28/18 08:30 Pulse Ox 99 08/26/18 09:00 Intake & Output 08/27/18 08/27/18 08/28/18 11:59 23:59 11:59 Intake Total 60 350 Balance 60 350 Intake: Oral 350 Oral Supplement 60 Other: Voiding Method Incontinent Incontinent # Unmeasured Voids Void 0 0 0 Bowel Movement Yes Yes # Bowel Movements 1 1 Active Medications Calamine (Calamine 8% Topical Lotion -) 1 applic TP QID PRN PRN Reason: FOR ITCHING Last Admin: 08/25/18 12:16 Dose: 1 applic Calcium Acetate (Phoslo -) 1,334 mg PO TIDCM [facility] Last Admin: 08/28/18 09:26 Dose: Not Given Collagenase (Santyl -) 1 applic TP DAILY [facility] Last Admin: 08/27/18 12:20 Dose: 1 applic Diphenhydramine HCl (Benadryl -) 25 mg PO Q6H PRN PRN Reason: FOR ITCHING Last Admin: 08/17/18 22:06 Dose: 25 mg Duloxetine HCl (Cymbalta -) 40 mg PO DAILY [facility] Last Admin: 08/27/18 12:19 Dose: 40 mg Sodium Chloride (Normal Saline -) 250 mls @ 3,000 mls/hr IV PRN PRN PRN Reason: HYPOTENSION DURING DIALYSIS Lactobacillus Acidophilus (Bacid -) 1 tab PO DAILY [facility] Last Admin: 08/27/18 09:51 Dose: 1 tab Loperamide HCl (Imodium -) 2 mg PO Q8H PRN PRN Reason: DIARRHEA Last Admin: 08/25/18 12:14 Dose: 2 mg Mesalamine (Asacol Hd -) 800 mg PO TID [facility] Last Admin: 08/28/18 05:36 Dose: 800 mg Mirtazapine (Remeron -) 7.5 mg PO HS [facility] Last Admin: 08/27/18 23:28 Dose: Not Given Tenofovir Disoproxil Fumarate (Viread -) 300 mg PO Th [facility] Last Admin: 08/24/18 14:18 Dose: 300 mg CBC, BMP 08/28/18 09:50 08/28/18 09:50 physical exam Constitutional: Yes: No Distress,comfortable Eyes: Yes: Conjunctiva Clear Neck: Yes: Supple Cardiovascular: Yes: Regular Rate and Rhythm Gastrointestinal: Yes: Normal Bowel Sounds, Soft, not tender Edema: yes- hands Integumentary: Yes: Other (history of heel ulcers--- follows at wound care.) Neurological: Yes: Alert Assessment/Plan clinically stable continue with meds medically stable for dc to STR--- pending insurance approval off antibiotics HD per renal I discussed with heel caser also today--- awaiting approval from his insurance Will follow Problem List - Problems (1) Acute diarrhea Code(s): R19.7 - DIARRHEA, UNSPECIFIED (2) Bilateral pressure ulcer of feet Code(s): L89.899 - PRESSURE ULCER OF OTHER SITE, UNSPECIFIED STAGE (3) ESRD (end stage renal disease) Code(s): N18.6 - END STAGE RENAL DISEASE
[2018-08-28 11:40] LABS: CREATININE 9.4 mg/dL (0.55-1.3)
[2018-08-28] MEDS ORDERED: PT OWN MED DRAWER 7, Y5N ONE (12:13)
[2018-08-28] MEDS: DULoxetine HCL 20 MG CAPSULE.DR (FP) PO SCH (12:15)
[2018-08-28] MEDS: LACTOBACILLUS ACIDOPHILUS 1 TABLET PO SCH (12:16)
--- NOTE | 2018-08-28 15:54 | PN ---
Progress Note, Physician History of Present Illness: Pt seen and examined at bedside. He tolerated HD. - Current Medication List Current Medications: Active Medications Calamine (Calamine 8% Topical Lotion -) 1 applic TP QID PRN PRN Reason: FOR ITCHING Last Admin: 08/25/18 12:16 Dose: 1 applic Calcium Acetate (Phoslo -) 1,334 mg PO TIDCM [facility] Last Admin: 08/28/18 12:17 Dose: Not Given Collagenase (Santyl -) 1 applic TP DAILY [facility] Last Admin: 08/27/18 12:20 Dose: 1 applic Diphenhydramine HCl (Benadryl -) 25 mg PO Q6H PRN PRN Reason: FOR ITCHING Last Admin: 08/17/18 22:06 Dose: 25 mg Duloxetine HCl (Cymbalta -) 40 mg PO DAILY [facility] Last Admin: 08/28/18 12:15 Dose: 40 mg Sodium Chloride (Normal Saline -) 250 mls @ 3,000 mls/hr IV PRN PRN PRN Reason: HYPOTENSION DURING DIALYSIS Lactobacillus Acidophilus (Bacid -) 1 tab PO DAILY [facility] Last Admin: 08/28/18 12:16 Dose: 1 tab Loperamide HCl (Imodium -) 2 mg PO Q8H PRN PRN Reason: DIARRHEA Last Admin: 08/25/18 12:14 Dose: 2 mg Mesalamine (Asacol Hd -) 800 mg PO TID [facility] Last Admin: 08/28/18 14:56 Dose: 800 mg Mirtazapine (Remeron -) 7.5 mg PO HS [facility] Last Admin: 08/27/18 23:28 Dose: Not Given Tenofovir Disoproxil Fumarate (Viread -) 300 mg PO Th [facility] Last Admin: 08/24/18 14:18 Dose: 300 mg - Objective Vital Signs: Vital Signs Temperature 98.3 F 08/28/18 15:09 Pulse Rate 114 H 08/28/18 15:09 Respiratory Rate 17 08/28/18 15:09 Blood Pressure 100/66 08/28/18 15:09 O2 Sat by Pulse Oximetry (%) 99 08/26/18 09:00 Constitutional: Yes: Calm Eyes: Yes: Conjunctiva Clear HENT: Yes: Atraumatic Neck: Yes: Supple Cardiovascular: Yes: S1, S2 Respiratory: Yes: CTA Bilaterally Gastrointestinal: Yes: Soft Genitourinary: Yes: WNL Musculoskeletal: Yes: Muscle Weakness Edema: No Neurological: Yes: Oriented Psychiatric: Yes: Oriented Labs: CBC, BMP 08/28/18 09:50 08/28/18 09:50 INR, PTT INR 1.01 (0.83-1.09) 07/24/18 08:30 Problem List - Problems (1) ESRD (end stage renal disease) Code(s): N18.6 - END STAGE RENAL DISEASE Assessment/Plan Current Medications Generic Name Dose Route Start Last Admin Trade Name Freq PRN Reason Stop Dose Admin Calamine 1 applic 08/17/18 13:47 08/25/18 12:16 Calamine 8% Topical Lotion - TP 1 applic QID PRN Administration FOR ITCHING Calcium Acetate 1,334 mg 08/10/18 17:30 08/28/18 12:17 Phoslo - PO Not Given TIDCM IRV[facility] Collagenase 1 applic 08/11/18 10:00 08/27/18 12:20 Santyl - TP 1 applic DAILY [facility] Administration Diphenhydramine HCl 25 mg 08/10/18 17:16 08/17/18 22:06 Benadryl - PO 25 mg Q6H PRN Administration FOR ITCHING Duloxetine HCl 40 mg 08/24/18 10:00 08/28/18 12:15 Cymbalta - PO 40 mg DAILY [facility] Administration Sodium Chloride 250 mls @ 3,000 mls/hr 08/28/18 09:53 Normal Saline - IV PRN PRN HYPOTENSION DURING DIALYSIS Lactobacillus Acidophilus 1 tab 08/11/18 10:00 08/28/18 12:16 Bacid - PO 1 tab DAILY [facility] Administration Loperamide HCl 2 mg 08/21/18 12:35 08/25/18 12:14 Imodium - PO 2 mg Q8H PRN Administration DIARRHEA Mesalamine 800 mg 08/10/18 14:00 08/28/18 14:56 Asacol Hd - PO 800 mg TID IRVIN Administration Mirtazapine 7.5 mg 08/23/18 22:00 08/27/18 23:28 Remeron - PO Not Given HS IRVIN Tenofovir Disoproxil Fumarate 300 mg 08/17/18 14:00 08/24/18 14:18 Viread - PO 300 mg Th [facility] Administration Impression 1. ESRD 2. anemia 3. hypokalemia 4. Hep B 5. diarrhea 6. depression 7. non-compliance with HD 8. acidosis - metabolic 9. hypocalcemia 10. hearing loss 11. sepsis Plan - HD today - encourage PO intake - d/c planning - epogen for anemia - wound care to leg - will follow
--- NOTE | 2018-08-28 18:00 | PN ---
Progress Note, Physician History of Present Illness: no new issues - Current Medication List Current Medications: Active Medications Calamine (Calamine 8% Topical Lotion -) 1 applic TP QID PRN PRN Reason: FOR ITCHING Last Admin: 08/25/18 12:16 Dose: 1 applic Calcium Acetate (Phoslo -) 1,334 mg PO TIDCM [facility] Last Admin: 08/28/18 17:06 Dose: Not Given Collagenase (Santyl -) 1 applic TP DAILY [facility] Last Admin: 08/27/18 12:20 Dose: 1 applic Diphenhydramine HCl (Benadryl -) 25 mg PO Q6H PRN PRN Reason: FOR ITCHING Last Admin: 08/17/18 22:06 Dose: 25 mg Duloxetine HCl (Cymbalta -) 40 mg PO DAILY [facility] Last Admin: 08/28/18 12:15 Dose: 40 mg Sodium Chloride (Normal Saline -) 250 mls @ 3,000 mls/hr IV PRN PRN PRN Reason: HYPOTENSION DURING DIALYSIS Lactobacillus Acidophilus (Bacid -) 1 tab PO DAILY [facility] Last Admin: 08/28/18 12:16 Dose: 1 tab Loperamide HCl (Imodium -) 2 mg PO Q8H PRN PRN Reason: DIARRHEA Last Admin: 08/25/18 12:14 Dose: 2 mg Mesalamine (Asacol Hd -) 800 mg PO TID [facility] Last Admin: 08/28/18 14:56 Dose: 800 mg Mirtazapine (Remeron -) 7.5 mg PO HS [facility] Last Admin: 08/27/18 23:28 Dose: Not Given Tenofovir Disoproxil Fumarate (Viread -) 300 mg PO Th [facility] Last Admin: 08/24/18 14:18 Dose: 300 mg - Objective Vital Signs: Vital Signs Temperature 98.3 F 08/28/18 15:09 Pulse Rate 114 H 08/28/18 15:09 Respiratory Rate 17 08/28/18 15:09 Blood Pressure 100/66 08/28/18 15:09 O2 Sat by Pulse Oximetry (%) 99 08/26/18 09:00 Constitutional: Yes: No Distress, Calm Cardiovascular: Yes: Regular Rate and Rhythm Respiratory: Yes: Regular, CTA Bilaterally Gastrointestinal: Yes: Normal Bowel Sounds, Soft Musculoskeletal: Yes: WNL Extremities: Yes: Other Wound/Incision: Yes: Dressing Dry and Intact Neurological: Yes: Alert, Oriented Psychiatric: Yes: Alert, Oriented Labs: CBC, BMP 08/28/18 09:50 08/28/18 09:50 INR, PTT INR 1.01 (0.83-1.09) 07/24/18 08:30 Assessment/Plan Assessment/Plan Problem List - Problems (1) Acute diarrhea Code(s): R19.7 - DIARRHEA, UNSPECIFIED (2) Bilateral pressure ulcer of feet Code(s): L89.899 - PRESSURE ULCER OF OTHER SITE, UNSPECIFIED STAGE (3) C. difficile colitis Code(s): A04.72 - ENTEROCOLITIS D/T CLOSTRIDIUM DIFFICILE, NOT SPCF RECUR (4) Chronic diarrhea Code(s): K52.9 - NONINFECTIVE GASTROENTERITIS AND COLITIS, UNSPECIFIED (5) Diabetic foot ulcer Code(s): E11.621 - TYPE 2 DIABETES MELLITUS WITH FOOT ULCER; L97.509 - NON- PRESSURE CHRONIC ULCER OTH PRT UNSP FOOT W UNSP SEVERITY Qualifiers: Diabetic foot ulcer location: heel Diabetes mellitus type: other specified (including JADON) Laterality: unspecified laterality Non-pressure ulcer stage : unspecified non-pressure ulcer stage Qualified Code(s): E13.621 - Other specified diabetes mellitus with foot ulcer; L97.409 - Non-pressure chronic ulcer of unspecified heel and midfoot with unspecified severity (6) ESRD (end stage renal disease) Code(s): N18.6 - END STAGE RENAL DISEASE (7) Generalized weakness Code(s): R53.1 - WEAKNESS (8) Sacral decubitus ulcer Code(s): L89.159 - PRESSURE ULCER OF SACRAL REGION, UNSPECIFIED STAGE 9 left heel wound 10 osteo of the heel plan continue wound care nutrition rest as per the team watch for depression
[2018-08-29] MEDS: MIRTAZAPINE 15 MG TABLET (FP) PO SCH ×2 (00:50→21:19)
[2018-08-29] MEDS: BANATROL PLUS POWDER PACKET PO SCH ×4 (00:50→21:19)
[2018-08-29 02:10] LABS: HBSAG SCREEN Negative (Negative); HEP B CORE AB, TOT Positive (Negative)
[2018-08-29] MEDS: MESALAMINE 800 MG TABLET.DR PO SCH ×3 (05:56→21:19)
--- NOTE | 2018-08-29 10:58 | OP ---
DATE OF OPERATION: 07/24/2018 PREOPERATIVE DIAGNOSIS: Clotted left arteriovenous fistula. POSTOPERATIVE DIAGNOSIS: Clotted left arteriovenous fistula. PROCEDURE: Venogram, suction thrombectomy, venoplasty of left arteriovenous fistula insertion. SURGEON: Ki Steele DO ANESTHESIA: Fractional. BLOOD LOSS: 20 mL. Patient is a 52-year-old male in the ICU that had a hypertensive episode last night in result of that hypertensive episode, a left AV fistula closed. Vascular surgery was consulted from thrombectomy. Patient was consented for the procedure, understanding all risks, benefits, and alternatives, and was then brought to the operating room. Once in the operating room, placed on the table in supine manner. The area of the left arm was prepped and draped in standard surgical manner. We then went ahead and under ultrasound guidance visualized the distal AV fistula. We visualized the distal AV fistula antecubital space, and 10 mL of lidocaine 1% was injected into the region of the left radial cephalic AV fistula. We then took our micropuncture needle and punctured the AV fistula, and micropuncture wire was inserted. Micropuncture sheath was inserted, and short 6-Maltese sheath was inserted. We then placed a 0.035 floppy guidewire down and across down to the arterial anastomosis and across it. We then used an AVX suction thrombectomy catheter and performed suction thrombectomy of the entire AV fistula in the forearm. was done and all the clot was removed. We shot an angiogram at the AV fistula and the body of the AV fistula was patent. We then went ahead and used No. 4 Gato, and we were able to go to the anastomosis and perform a thrombectomy using the Gato catheter. Once we did that, there was good thrill in our AV fistula, and there was good flow. Throughout the procedure, patient received 3000 units of IV heparin. Completion venogram now showed that the fistula was patent and was patent, and there was good brisk flow into the upper arm and central veins. At this point, we went ahead and used a 4-0 Biosyn suture and [id number] stitch was placed around our sheath and the sheath was pulled. Area was wet and dried, and Dermabond was placed. Patient tolerated the procedure with no complications. Patient was transferred to PACU in stable condition. KI STEELE DO VALVE MECH[employer]IC/[id number]
[2018-08-29] MEDS: CALCIUM ACETATE 667 MG CAPSULE (FP) PO SCH ×3 (11:01→18:31)
[2018-08-29] MEDS ORDERED: PT OWN MED DRAWER 7, Y5N ONE ×2 (11:02→21:18)
[2018-08-29] MEDS: LACTOBACILLUS ACIDOPHILUS 1 TABLET PO SCH (11:06)
[2018-08-29] MEDS: DULoxetine HCL 20 MG CAPSULE.DR (FP) PO SCH (11:06)
[2018-08-29] MEDS: COLLAGENASE CLOSTRIDIUM HIST. 30 GRAMS TUBE TP SCH (11:07)
--- NOTE | 2018-08-29 13:05 | PN ---
Progress Note (short form) - Note Progress Note: eating now has diarrhea but less frequent no abd pain not feeling depressed Vital Signs - 24 hr 08/28/18 08/28/18 08/28/18 15:09 17:40 20:58 Temperature 98.3 F 98.9 F 98.8 F Pulse Rate 114 H 106 H 120 H Respiratory 17 18 18 Rate Blood Pressure 100/66 115/69 96/56 L O2 Sat by Pulse Oximetry (%) 08/28/18 08/29/18 21:00 03:50 Temperature 97.7 F Pulse Rate 94 H Respiratory 18 Rate Blood Pressure 98/62 O2 Sat by Pulse 99 Oximetry (%) Current Medications Generic Name Dose Route Start Last Admin Trade Name Freq PRN Reason Stop Dose Admin Calamine 1 applic 08/17/18 13:47 08/25/18 12:16 Calamine 8% Topical Lotion - TP 1 applic QID PRN Administration FOR ITCHING Calcium Acetate 1,334 mg 08/10/18 17:30 08/29/18 11:01 Phoslo - PO Not Given TIDCM [facility] Collagenase 1 applic 08/11/18 10:00 08/29/18 11:07 Santyl - TP 1 applic DAILY [facility] Administration Diphenhydramine HCl 25 mg 08/10/18 17:16 08/17/18 22:06 Benadryl - PO 25 mg Q6H PRN Administration FOR ITCHING Duloxetine HCl 40 mg 08/24/18 10:00 08/29/18 11:06 Cymbalta - PO 40 mg DAILY [facility] Administration Sodium Chloride 250 mls @ 3,000 mls/hr 08/28/18 09:53 Normal Saline - IV PRN PRN HYPOTENSION DURING DIALYSIS Lactobacillus Acidophilus 1 tab 08/11/18 10:00 08/29/18 11:06 Bacid - PO 1 tab DAILY [facility] Administration Loperamide HCl 2 mg 08/21/18 12:35 08/25/18 12:14 Imodium - PO 2 mg Q8H PRN Administration DIARRHEA Mesalamine 800 mg 08/10/18 14:00 08/29/18 05:56 Asacol Hd - PO 800 mg TID [facility] Administration Mirtazapine 7.5 mg 08/23/18 22:00 08/29/18 00:50 Remeron - PO Not Given HS [facility] Tenofovir Disoproxil Fumarate 300 mg 08/17/18 14:00 08/24/18 14:18 Viread - PO 300 mg Th [facility] Administration Laboratory Results - last 24 hr 08/28/18 08/28/18 11:40 11:40 Hepatitis A Ab Total Negative Hep Bs Antigen Negative Hep Bs Antibody Non reactive Hep B Core Total Ab Positive H Hep C Ab Diagnostic 0.1 Constitutional: Yes: No Distress, Calm Eyes: Yes: Conjunctiva Clear Neck: Yes: Supple Cardiovascular: Yes: Regular Rate and Rhythm Gastrointestinal: Yes: Normal Bowel Sounds, Soft, not tender Edema: yes- hands Integumentary: Yes: Other (history of heel ulcers--- follows at wound care.) Neurological: Yes: Alert Assessment/Plan continue with meds medically ready for dc to STR pending insurance authorization off antibiotics HD per renal diarrhea improving Problem List - Problems (1) Acute diarrhea Code(s): R19.7 - DIARRHEA, UNSPECIFIED (2) Bilateral pressure ulcer of feet Code(s): L89.899 - PRESSURE ULCER OF OTHER SITE, UNSPECIFIED STAGE (3) C. difficile colitis Code(s): A04.72 - ENTEROCOLITIS D/T CLOSTRIDIUM DIFFICILE, NOT SPCF RECUR (4) Chronic diarrhea Code(s): K52.9 - NONINFECTIVE GASTROENTERITIS AND COLITIS, UNSPECIFIED (5) Diabetic foot ulcer Code(s): E11.621 - TYPE 2 DIABETES MELLITUS WITH FOOT ULCER; L97.509 - NON- PRESSURE CHRONIC ULCER OTH PRT UNSP FOOT W UNSP SEVERITY Qualifiers: Diabetic foot ulcer location: heel Diabetes mellitus type: other specified (including JADON) Laterality: unspecified laterality Non-pressure ulcer stage : unspecified non-pressure ulcer stage Qualified Code(s): E13.621 - Other specified diabetes mellitus with foot ulcer; L97.409 - Non-pressure chronic ulcer of unspecified heel and midfoot with unspecified severity (6) ESRD (end stage renal disease) Code(s): N18.6 - END STAGE RENAL DISEASE (7) Generalized weakness Code(s): R53.1 - WEAKNESS (8) Sacral decubitus ulcer Code(s): L89.159 - PRESSURE ULCER OF SACRAL REGION, UNSPECIFIED STAGE
[2018-08-29] MEDS ORDERED: SODIUM CHLORIDE 250 ML IV PRN (13:37)
--- NOTE | 2018-08-29 13:37 | PN ---
Progress Note, Physician History of Present Illness: Seen and examined. No new events. HD tomorrow. - Current Medication List Current Medications: Active Medications Calamine (Calamine 8% Topical Lotion -) 1 applic TP QID PRN PRN Reason: FOR ITCHING Last Admin: 08/25/18 12:16 Dose: 1 applic Calcium Acetate (Phoslo -) 1,334 mg PO [facility] Last Admin: 08/29/18 11:01 Dose: Not Given Collagenase (Santyl -) 1 applic TP DAILY [facility] Last Admin: 08/29/18 11:07 Dose: 1 applic Diphenhydramine HCl (Benadryl -) 25 mg PO Q6H PRN PRN Reason: FOR ITCHING Last Admin: 08/17/18 22:06 Dose: 25 mg Duloxetine HCl (Cymbalta -) 40 mg PO DAILY [facility] Last Admin: 08/29/18 11:06 Dose: 40 mg Sodium Chloride (Normal Saline -) 250 mls @ 3,000 mls/hr IV PRN PRN PRN Reason: HYPOTENSION DURING DIALYSIS Lactobacillus Acidophilus (Bacid -) 1 tab PO DAILY [facility] Last Admin: 08/29/18 11:06 Dose: 1 tab Loperamide HCl (Imodium -) 2 mg PO Q8H PRN PRN Reason: DIARRHEA Last Admin: 08/25/18 12:14 Dose: 2 mg Mesalamine (Asacol Hd -) 800 mg PO TID [facility] Last Admin: 08/29/18 05:56 Dose: 800 mg Mirtazapine (Remeron -) 7.5 mg PO HS [facility] Last Admin: 08/29/18 00:50 Dose: Not Given Tenofovir Disoproxil Fumarate (Viread -) 300 mg PO Th [facility] Last Admin: 08/24/18 14:18 Dose: 300 mg - Objective Vital Signs: Vital Signs Temperature 97.7 F 08/29/18 03:50 Pulse Rate 94 H 08/29/18 03:50 Respiratory Rate 18 08/29/18 03:50 Blood Pressure 98/62 08/29/18 03:50 O2 Sat by Pulse Oximetry (%) 99 08/28/18 21:00 Constitutional: Yes: Calm Eyes: Yes: Conjunctiva Clear HENT: Yes: Atraumatic Neck: Yes: Supple Cardiovascular: Yes: S1, S2 Respiratory: Yes: CTA Bilaterally Gastrointestinal: Yes: Soft Edema: Yes Edema: LLE: Trace, RLE: Trace Neurological: Yes: Oriented Psychiatric: Yes: Oriented Labs: CBC, BMP 08/28/18 09:50 08/28/18 09:50 INR, PTT INR 1.01 (0.83-1.09) 07/24/18 08:30 Problem List - Problems (1) ESRD (end stage renal disease) Code(s): N18.6 - END STAGE RENAL DISEASE Assessment/Plan Current Medications Generic Name Dose Route Start Last Admin Trade Name Freq PRN Reason Stop Dose Admin Calamine 1 applic 08/17/18 13:47 08/25/18 12:16 Calamine 8% Topical Lotion - TP 1 applic QID PRN Administration FOR ITCHING Calcium Acetate 1,334 mg 08/10/18 17:30 08/29/18 11:01 Phoslo - PO Not Given TIDCM [facility] Collagenase 1 applic 08/11/18 10:00 08/29/18 11:07 Santyl - TP 1 applic DAILY [facility] Administration Diphenhydramine HCl 25 mg 08/10/18 17:16 08/17/18 22:06 Benadryl - PO 25 mg Q6H PRN Administration FOR ITCHING Duloxetine HCl 40 mg 08/24/18 10:00 08/29/18 11:06 Cymbalta - PO 40 mg DAILY [facility] Administration Sodium Chloride 250 mls @ 3,000 mls/hr 08/28/18 09:53 Normal Saline - IV PRN PRN HYPOTENSION DURING DIALYSIS Lactobacillus Acidophilus 1 tab 08/11/18 10:00 08/29/18 11:06 Bacid - PO 1 tab DAILY [facility] Administration Loperamide HCl 2 mg 08/21/18 12:35 08/25/18 12:14 Imodium - PO 2 mg Q8H PRN Administration DIARRHEA Mesalamine 800 mg 08/10/18 14:00 08/29/18 05:56 Asacol Hd - PO 800 mg TID [facility] Administration Mirtazapine 7.5 mg 08/23/18 22:00 08/29/18 00:50 Remeron - PO Not Given HS [facility] Tenofovir Disoproxil Fumarate 300 mg 08/17/18 14:00 08/24/18 14:18 Viread - PO 300 mg Th [facility] Administration Impression 1. ESRD 2. anemia 3. hypokalemia 4. Hep B 5. diarrhea 6. depression 7. non-compliance with HD 8. acidosis - metabolic 9. hypocalcemia 10. hearing loss 11. sepsis Plan - HD in am - PO intake improved - d/c planning - epogen for anemia - wound care to leg - will follow
--- NOTE | 2018-08-29 13:39 | PN ---
Progress Note, Physician History of Present Illness: no new issues eating dirrhoea - Current Medication List Current Medications: Active Medications Calamine (Calamine 8% Topical Lotion -) 1 applic TP QID PRN PRN Reason: FOR ITCHING Last Admin: 08/25/18 12:16 Dose: 1 applic Calcium Acetate (Phoslo -) 1,334 mg PO TIDCM [facility] Last Admin: 08/29/18 11:01 Dose: Not Given Collagenase (Santyl -) 1 applic TP DAILY [facility] Last Admin: 08/29/18 11:07 Dose: 1 applic Diphenhydramine HCl (Benadryl -) 25 mg PO Q6H PRN PRN Reason: FOR ITCHING Last Admin: 08/17/18 22:06 Dose: 25 mg Duloxetine HCl (Cymbalta -) 40 mg PO DAILY [facility] Last Admin: 08/29/18 11:06 Dose: 40 mg Sodium Chloride (Normal Saline -) 250 mls @ 3,000 mls/hr IV PRN PRN PRN Reason: HYPOTENSION DURING DIALYSIS Lactobacillus Acidophilus (Bacid -) 1 tab PO DAILY [facility] Last Admin: 08/29/18 11:06 Dose: 1 tab Loperamide HCl (Imodium -) 2 mg PO Q8H PRN PRN Reason: DIARRHEA Last Admin: 08/25/18 12:14 Dose: 2 mg Mesalamine (Asacol Hd -) 800 mg PO TID [facility] Last Admin: 08/29/18 05:56 Dose: 800 mg Mirtazapine (Remeron -) 7.5 mg PO HS [facility] Last Admin: 08/29/18 00:50 Dose: Not Given Tenofovir Disoproxil Fumarate (Viread -) 300 mg PO Th [facility] Last Admin: 08/24/18 14:18 Dose: 300 mg - Objective Vital Signs: Vital Signs Temperature 97.7 F 08/29/18 03:50 Pulse Rate 94 H 08/29/18 03:50 Respiratory Rate 18 08/29/18 03:50 Blood Pressure 98/62 08/29/18 03:50 O2 Sat by Pulse Oximetry (%) 99 08/28/18 21:00 Constitutional: Yes: No Distress, Calm Cardiovascular: Yes: Regular Rate and Rhythm Respiratory: Yes: Regular, CTA Bilaterally Gastrointestinal: Yes: Normal Bowel Sounds, Soft Musculoskeletal: Yes: WNL Extremities: Yes: Other Wound/Incision: Yes: Dressing Dry and Intact Neurological: Yes: Alert, Oriented Psychiatric: Yes: Alert, Oriented Labs: CBC, BMP 08/28/18 09:50 08/28/18 09:50 INR, PTT INR 1.01 (0.83-1.09) 07/24/18 08:30 Assessment/Plan Assessment/Plan Problem List - Problems (1) Acute diarrhea Code(s): R19.7 - DIARRHEA, UNSPECIFIED (2) Bilateral pressure ulcer of feet Code(s): L89.899 - PRESSURE ULCER OF OTHER SITE, UNSPECIFIED STAGE (3) C. difficile colitis Code(s): A04.72 - ENTEROCOLITIS D/T CLOSTRIDIUM DIFFICILE, NOT SPCF RECUR (4) Chronic diarrhea Code(s): K52.9 - NONINFECTIVE GASTROENTERITIS AND COLITIS, UNSPECIFIED (5) Diabetic foot ulcer Code(s): E11.621 - TYPE 2 DIABETES MELLITUS WITH FOOT ULCER; L97.509 - NON- PRESSURE CHRONIC ULCER OTH PRT UNSP FOOT W UNSP SEVERITY Qualifiers: Diabetic foot ulcer location: heel Diabetes mellitus type: other specified (including JADON) Laterality: unspecified laterality Non-pressure ulcer stage : unspecified non-pressure ulcer stage Qualified Code(s): E13.621 - Other specified diabetes mellitus with foot ulcer; L97.409 - Non-pressure chronic ulcer of unspecified heel and midfoot with unspecified severity (6) ESRD (end stage renal disease) Code(s): N18.6 - END STAGE RENAL DISEASE (7) Generalized weakness Code(s): R53.1 - WEAKNESS (8) Sacral decubitus ulcer Code(s): L89.159 - PRESSURE ULCER OF SACRAL REGION, UNSPECIFIED STAGE 9 left heel wound 10 osteo of the heel plan continue wound care nutrition rest as per the team physio
[2018-08-29] MEDS: diphenhydrAMINE HCL 25 MG CAPSULE (FP) PO PRN (21:19)
[2018-08-30] MEDS: BANATROL PLUS POWDER PACKET PO SCH ×2 (05:35→15:27)
[2018-08-30] MEDS: MESALAMINE 800 MG TABLET.DR PO SCH ×2 (07:07→15:27)
[2018-08-30] MEDS: CALCIUM ACETATE 667 MG CAPSULE (FP) PO SCH ×3 (08:44→17:00)
[2018-08-30] MEDS ORDERED: EPOETIN ALFA 3,000 UNIT/1 ML ML IVPUSH ONE (10:00)
[2018-08-30] MEDS: ALBUMIN HUMAN 25% 12.5 GM/50 ML VIAL IVPB PRN ×2 (11:00→11:30)
[2018-08-30 11:04] LABS: HEMATOCRIT 26.3 % (35.4-49); MCH 31.7 pg (25.7-33.7); MEAN CELL VOLUME 93.2 fl (80-96); MEAN PLT VOLUME 9.9 fl (7.5-11.1); PLATELET COUNT 107 K/MM3 (134-434); RBC 2.83 M/mm3 (4.00-5.60); RDW 15.8 % (11.9-15.9); WHITE BLOOD COUNT 5.7 K/mm3 (4.0-10.0)
--- NOTE | 2018-08-30 11:04 | PN ---
Progress Note (short form) - Note Progress Note: eating better no abd pain not feeling depressed still has diarrhea , but less frequent Vital Signs - 24 hr 08/29/18 08/29/18 08/29/18 15:15 21:00 21:22 Temperature 98.8 F 98.3 F Pulse Rate 91 H 100 H Respiratory 18 18 Rate Blood Pressure 120/69 133/78 O2 Sat by Pulse 99 Oximetry (%) 08/30/18 08/30/18 08/30/18 06:00 10:00 10:20 Temperature 97.8 F Pulse Rate 95 H 97 H 88 Respiratory 18 18 18 Rate Blood Pressure 125/78 122/77 120/68 O2 Sat by Pulse Oximetry (%) 08/30/18 10:50 Temperature Pulse Rate 93 H Respiratory 18 Rate Blood Pressure 80/56 L O2 Sat by Pulse Oximetry (%) Current Medications Generic Name Dose Route Start Last Admin Trade Name Freq PRN Reason Stop Dose Admin Calamine 1 applic 08/17/18 13:47 08/25/18 12:16 Calamine 8% Topical Lotion - TP 1 applic QID PRN Administration FOR ITCHING Calcium Acetate 1,334 mg 08/10/18 17:30 08/30/18 08:44 Phoslo - PO Not Given TIDCM IRVIN Collagenase 1 applic 08/11/18 10:00 08/29/18 11:07 Santyl - TP 1 applic DAILY IRVIN Administration Diphenhydramine HCl 25 mg 08/10/18 17:16 08/29/18 21:19 Benadryl - PO 25 mg Q6H PRN Administration FOR ITCHING Duloxetine HCl 40 mg 08/24/18 10:00 08/29/18 11:06 Cymbalta - PO 40 mg DAILY IRVIN Administration Sodium Chloride 250 mls @ 3,000 mls/hr 08/28/18 09:53 Normal Saline - IV PRN PRN HYPOTENSION DURING DIALYSIS Sodium Chloride 250 mls @ 3,000 mls/hr 08/29/18 13:37 Normal Saline - IV 08/30/18 13:37 PRN PRN Hypotension during Dialysis Lactobacillus Acidophilus 1 tab 08/11/18 10:00 08/29/18 11:06 Bacid - PO 1 tab DAILY IRVIN Administration Loperamide HCl 2 mg 08/21/18 12:35 08/25/18 12:14 Imodium - PO 2 mg Q8H PRN Administration DIARRHEA Mesalamine 800 mg 08/10/18 14:00 08/30/18 07:07 Asacol Hd - PO 800 mg TID IRVIN Administration Mirtazapine 7.5 mg 08/23/18 22:00 08/29/18 21:19 Remeron - PO Not Given HS IRVIN Tenofovir Disoproxil Fumarate 300 mg 08/17/18 14:00 08/24/18 14:18 Viread - PO 300 mg Th IRVIN Administration Laboratory Results - last 24 hr 08/30/18 10:20 WBC 5.7 RBC 2.83 L Hgb 9.0 L Hct 26.3 L MCV 93.2 MCH 31.7 MCHC 34.0 RDW 15.8 Plt Count 107 L D MPV 9.9 Constitutional: Yes: No Distress, Calm Eyes: Yes: Conjunctiva Clear Neck: Yes: Supple Cardiovascular: Yes: Regular Rate and Rhythm Gastrointestinal: Yes: Normal Bowel Sounds, Soft, not tender Edema: yes- hands Integumentary: Yes: Other (history of heel ulcers--- follows at wound care.) Neurological: Yes: Alert Assessment/Plan continue with meds medically ready for dc to [facility] pending insurance authorization off antibiotics HD per renal diarrhea improving please see discharge summary as well Problem List - Problems (1) Acute diarrhea Code(s): R19.7 - DIARRHEA, UNSPECIFIED (2) Bilateral pressure ulcer of feet Code(s): L89.899 - PRESSURE ULCER OF OTHER SITE, UNSPECIFIED STAGE (3) C. difficile colitis Code(s): A04.72 - ENTEROCOLITIS D/T CLOSTRIDIUM DIFFICILE, NOT SPCF RECUR (4) Chronic diarrhea Code(s): K52.9 - NONINFECTIVE GASTROENTERITIS AND COLITIS, UNSPECIFIED (5) Diabetic foot ulcer Code(s): E11.621 - TYPE 2 DIABETES MELLITUS WITH FOOT ULCER; L97.509 - NON- PRESSURE CHRONIC ULCER OTH PRT UNSP FOOT W UNSP SEVERITY Qualifiers: Diabetic foot ulcer location: heel Diabetes mellitus type: other specified (including JADON) Laterality: unspecified laterality Non-pressure ulcer stage : unspecified non-pressure ulcer stage Qualified Code(s): E13.621 - Other specified diabetes mellitus with foot ulcer; L97.409 - Non-pressure chronic ulcer of unspecified heel and midfoot with unspecified severity (6) ESRD (end stage renal disease) Code(s): N18.6 - END STAGE RENAL DISEASE (7) Generalized weakness Code(s): R53.1 - WEAKNESS (8) Sacral decubitus ulcer Code(s): L89.159 - PRESSURE ULCER OF SACRAL REGION, UNSPECIFIED STAGE
[2018-08-30 11:56] LABS: ANION GAP 8 MMOL/L (8-16); BLOOD UREA NITROGEN 37 mg/dL (7-18); CALCIUM 7.6 mg/dL (8.5-10.1); CHLORIDE 106 mmol/L (98-107); CO2 22 mmol/L (21-32); GLUCOSE,RANDOM 93 mg/dL (74-106); SODIUM 136 mmol/L (136-145)
[2018-08-30 12:07] LABS: CREATININE 7.4 mg/dL (0.55-1.3)
--- NOTE | 2018-08-30 12:09 | PN ---
Progress Note, Physician History of Present Illness: Pt seen and examined at bedside. He is awake and alert. He is tolerating HD. - Current Medication List Current Medications: Active Medications Albumin Human (Albumin Human 25%) 12.5 gm IVPB Q30M PRN PRN Reason: LOW BP Stop: 08/30/18 15:00 Calamine (Calamine 8% Topical Lotion -) 1 applic TP QID PRN PRN Reason: FOR ITCHING Last Admin: 08/25/18 12:16 Dose: 1 applic Calcium Acetate (Phoslo -) 1,334 mg PO [facility]CM [facility] Last Admin: 08/30/18 08:44 Dose: Not Given Collagenase (Santyl -) 1 applic TP DAILY [facility] Last Admin: 08/29/18 11:07 Dose: 1 applic Diphenhydramine HCl (Benadryl -) 25 mg PO Q6H PRN PRN Reason: FOR ITCHING Last Admin: 08/29/18 21:19 Dose: 25 mg Duloxetine HCl (Cymbalta -) 40 mg PO DAILY [facility] Last Admin: 08/29/18 11:06 Dose: 40 mg Sodium Chloride (Normal Saline -) 250 mls @ 3,000 mls/hr IV PRN PRN PRN Reason: HYPOTENSION DURING DIALYSIS Sodium Chloride (Normal Saline -) 250 mls @ 3,000 mls/hr IV PRN PRN PRN Reason: Hypotension during Dialysis Stop: 08/30/18 13:37 Lactobacillus Acidophilus (Bacid -) 1 tab PO DAILY [facility] Last Admin: 08/29/18 11:06 Dose: 1 tab Loperamide HCl (Imodium -) 2 mg PO Q8H PRN PRN Reason: DIARRHEA Last Admin: 08/25/18 12:14 Dose: 2 mg Mesalamine (Asacol Hd -) 800 mg PO TID [facility] Last Admin: 08/30/18 07:07 Dose: 800 mg Mirtazapine (Remeron -) 7.5 mg PO HS [facility] Last Admin: 08/29/18 21:19 Dose: Not Given Tenofovir Disoproxil Fumarate (Viread -) 300 mg PO Th [facility] Last Admin: 08/24/18 14:18 Dose: 300 mg - Objective Vital Signs: Vital Signs Temperature 97.8 F 08/30/18 06:00 Pulse Rate 93 H 08/30/18 10:50 Respiratory Rate 18 02/19 10:50 Blood Pressure 80/56 L 08/30/18 10:50 O2 Sat by Pulse Oximetry (%) 99 08/29/18 21:00 Constitutional: Yes: Calm Eyes: Yes: Conjunctiva Clear HENT: Yes: Atraumatic Neck: Yes: Supple Cardiovascular: Yes: S1, S2 Respiratory: Yes: CTA Bilaterally Gastrointestinal: Yes: Soft Genitourinary: Yes: WNL Musculoskeletal: Yes: WNL Edema: LLE: Trace, RLE: Trace Neurological: Yes: Oriented Psychiatric: Yes: Oriented Labs: CBC, BMP 08/30/18 10:20 08/30/18 06:00 INR, PTT INR 1.01 (0.83-1.09) 07/24/18 08:30 Problem List - Problems (1) ESRD (end stage renal disease) Code(s): N18.6 - END STAGE RENAL DISEASE Assessment/Plan Current Medications Generic Name Dose Route Start Last Admin Trade Name Freq PRN Reason Stop Dose Admin Albumin Human 12.5 gm 08/30/18 11:26 Albumin Human 25% IVPB 08/30/18 15:00 Q30M PRN LOW BP Calamine 1 applic 08/17/18 13:47 08/25/18 12:16 Calamine 8% Topical Lotion - TP 1 applic QID PRN Administration FOR ITCHING Calcium Acetate 1,334 mg 08/10/18 17:30 08/30/18 08:44 Phoslo - PO Not Given TIDCM IRVIN Collagenase 1 applic 08/11/18 10:00 08/29/18 11:07 Santyl - TP 1 applic DAILY IRVIN Administration Diphenhydramine HCl 25 mg 08/10/18 17:16 08/29/18 21:19 Benadryl - PO 25 mg Q6H PRN Administration FOR ITCHING Duloxetine HCl 40 mg 08/24/18 10:00 08/29/18 11:06 Cymbalta - PO 40 mg DAILY IRVIN Administration Sodium Chloride 250 mls @ 3,000 mls/hr 08/28/18 09:53 Normal Saline - IV PRN PRN HYPOTENSION DURING DIALYSIS Sodium Chloride 250 mls @ 3,000 mls/hr 08/29/18 13:37 Normal Saline - IV 08/30/18 13:37 PRN PRN Hypotension during Dialysis Lactobacillus Acidophilus 1 tab 08/11/18 10:00 08/29/18 11:06 Bacid - PO 1 tab DAILY IRVIN Administration Loperamide HCl 2 mg 08/21/18 12:35 08/25/18 12:14 Imodium - PO 2 mg Q8H PRN Administration DIARRHEA Mesalamine 800 mg 08/10/18 14:00 08/30/18 07:07 Asacol Hd - PO 800 mg TID IRVIN Administration Mirtazapine 7.5 mg 08/23/18 22:00 08/29/18 21:19 Remeron - PO Not Given HS IRVIN Tenofovir Disoproxil Fumarate 300 mg 08/17/18 14:00 08/24/18 14:18 Viread - PO 300 mg Th IRVIN Administration Impression 1. ESRD 2. anemia 3. hypokalemia 4. Hep B 5. diarrhea 6. depression 7. non-compliance with HD 8. acidosis - metabolic 9. hypocalcemia 10. hearing loss 11. sepsis Plan - HD today - d/c planning - epogen for anemia - wound care to leg - will follow
--- NOTE | 2018-08-30 13:03 | PN ---
Progress Note, Physician History of Present Illness: stable no new issues - Current Medication List Current Medications: Active Medications Albumin Human (Albumin Human 25%) 12.5 gm IVPB Q30M PRN PRN Reason: LOW BP Stop: 08/30/18 15:00 Calamine (Calamine 8% Topical Lotion -) 1 applic TP QID PRN PRN Reason: FOR ITCHING Last Admin: 08/25/18 12:16 Dose: 1 applic Calcium Acetate (Phoslo -) 1,334 mg PO TIDCM [facility] Last Admin: 08/30/18 08:44 Dose: Not Given Collagenase (Santyl -) 1 applic TP DAILY [facility] Last Admin: 08/29/18 11:07 Dose: 1 applic Diphenhydramine HCl (Benadryl -) 25 mg PO Q6H PRN PRN Reason: FOR ITCHING Last Admin: 08/29/18 21:19 Dose: 25 mg Duloxetine HCl (Cymbalta -) 40 mg PO DAILY [facility] Last Admin: 08/29/18 11:06 Dose: 40 mg Sodium Chloride (Normal Saline -) 250 mls @ 3,000 mls/hr IV PRN PRN PRN Reason: HYPOTENSION DURING DIALYSIS Sodium Chloride (Normal Saline -) 250 mls @ 3,000 mls/hr IV PRN PRN PRN Reason: Hypotension during Dialysis Stop: 08/30/18 13:37 Lactobacillus Acidophilus (Bacid -) 1 tab PO DAILY [facility] Last Admin: 08/29/18 11:06 Dose: 1 tab Loperamide HCl (Imodium -) 2 mg PO Q8H PRN PRN Reason: DIARRHEA Last Admin: 08/25/18 12:14 Dose: 2 mg Mesalamine (Asacol Hd -) 800 mg PO TID [facility] Last Admin: 08/30/18 07:07 Dose: 800 mg Mirtazapine (Remeron -) 7.5 mg PO HS [facility] Last Admin: 08/29/18 21:19 Dose: Not Given Tenofovir Disoproxil Fumarate (Viread -) 300 mg PO Th [facility] Last Admin: 08/24/18 14:18 Dose: 300 mg - Objective Vital Signs: Vital Signs Temperature 97.8 F 08/30/18 06:00 Pulse Rate 93 H 08/30/18 10:50 Respiratory Rate 18 08/30/18 10:50 Blood Pressure 80/56 L 08/30/18 10:50 O2 Sat by Pulse Oximetry (%) 99 08/29/18 21:00 Constitutional: Yes: No Distress, Calm Cardiovascular: Yes: Regular Rate and Rhythm Respiratory: Yes: Regular Gastrointestinal: Yes: Normal Bowel Sounds, Soft Musculoskeletal: Yes: WNL Extremities: Yes: Other Neurological: Yes: Alert, Oriented Psychiatric: Yes: Alert, Oriented Labs: CBC, BMP 08/30/18 10:20 08/30/18 06:00 INR, PTT INR 1.01 (0.83-1.09) 07/24/18 08:30 Assessment/Plan Assessment/Plan Problem List - Problems (1) Acute diarrhea Code(s): R19.7 - DIARRHEA, UNSPECIFIED (2) Bilateral pressure ulcer of feet Code(s): L89.899 - PRESSURE ULCER OF OTHER SITE, UNSPECIFIED STAGE (3) C. difficile colitis Code(s): A04.72 - ENTEROCOLITIS D/T CLOSTRIDIUM DIFFICILE, NOT SPCF RECUR (4) Chronic diarrhea Code(s): K52.9 - NONINFECTIVE GASTROENTERITIS AND COLITIS, UNSPECIFIED (5) Diabetic foot ulcer Code(s): E11.621 - TYPE 2 DIABETES MELLITUS WITH FOOT ULCER; L97.509 - NON- PRESSURE CHRONIC ULCER OTH PRT UNSP FOOT W UNSP SEVERITY Qualifiers: Diabetic foot ulcer location: heel Diabetes mellitus type: other specified (including JADON) Laterality: unspecified laterality Non-pressure ulcer stage : unspecified non-pressure ulcer stage Qualified Code(s): E13.621 - Other specified diabetes mellitus with foot ulcer; L97.409 - Non-pressure chronic ulcer of unspecified heel and midfoot with unspecified severity (6) ESRD (end stage renal disease) Code(s): N18.6 - END STAGE RENAL DISEASE (7) Generalized weakness Code(s): R53.1 - WEAKNESS (8) Sacral decubitus ulcer Code(s): L89.159 - PRESSURE ULCER OF SACRAL REGION, UNSPECIFIED STAGE 9 left heel wound 10 osteo of the heel plan continue wound care nutrition rest as per the team physio
[2018-08-30 14:10] VITALS: BP 105/59; PULSE 94; TEMP 98.1
[2018-08-30] MEDS: LACTOBACILLUS ACIDOPHILUS 1 TABLET PO SCH (15:26)
[2018-08-30] MEDS: DULoxetine HCL 20 MG CAPSULE.DR (FP) PO SCH (15:26)
[2018-08-30] MEDS: COLLAGENASE CLOSTRIDIUM HIST. 30 GRAMS TUBE TP SCH (17:00)
== END 2018-08-30 19:31 | DRG 356 ==
LOC: JER 07:36 → JERBED 10:58 → J4W 16:55 → J8W 07-27 19:03 → JICU 08-01 18:58 → J5S 08-10 17:40
PROVIDERS: ADMIT Internal Medicine; ATTEND Internal Medicine
PROC: 3E03317 Introduction of Other Thrombolytic into Peripheral Vein, Percutaneous Approach (ICD-10-PCS; 2018-07-28)
PROC: B51NZZZ Fluoroscopy of Left Upper Extremity Veins (ICD-10-PCS; 2018-08-04)
PROC: 057F3ZZ Dilation of Left Cephalic Vein, Percutaneous Approach (ICD-10-PCS; principal; 2018-08-04 10:00)
PROC: 05CF3ZZ Extirpation of Matter from Left Cephalic Vein, Percutaneous Approach (ICD-10-PCS; 2018-08-04 10:00)
PROC: 0DD98ZX Extraction of Duodenum, Via Natural or Artificial Opening Endoscopic, Diagnostic (ICD-10-PCS; 2018-08-08)
PROC: 0DD68ZX Extraction of Stomach, Via Natural or Artificial Opening Endoscopic, Diagnostic (ICD-10-PCS; 2018-08-08)
PROC: 0DDB8ZX Extraction of Ileum, Via Natural or Artificial Opening Endoscopic, Diagnostic (ICD-10-PCS; 2018-08-08)
PROC: 0DDN8ZX Extraction of Sigmoid Colon, Via Natural or Artificial Opening Endoscopic, Diagnostic (ICD-10-PCS; 2018-08-08)
PROC: 5A1D70Z Performance of Urinary Filtration, Intermittent, Less than 6 Hours Per Day (ICD-10-PCS; 2018-08-09)
DX: A04.72 Enterocolitis due to Clostridium difficile, not specified as recurrent (principal); N18.6 End stage renal disease; B19.10 Unspecified viral hepatitis B without hepatic coma; E87.2 Acidosis; K61.1 Rectal abscess; M86.9 Osteomyelitis, unspecified; B19.20 Unspecified viral hepatitis C without hepatic coma; E11.22 Type 2 diabetes mellitus with diabetic chronic kidney disease; E87.6 Hypokalemia; I95.9 Hypotension, unspecified; Z79.84 Long term (current) use of oral hypoglycemic drugs; Z91.15 Patient's noncompliance with renal dialysis; Z99.2 Dependence on renal dialysis; G62.9 Polyneuropathy, unspecified; D64.9 Anemia, unspecified; L89.159 Pressure ulcer of sacral region, unspecified stage; L89.629 Pressure ulcer of left heel, unspecified stage; L89.619 Pressure ulcer of right heel, unspecified stage; I87.8 Other specified disorders of veins; E83.51 Hypocalcemia; Z99.3 Dependence on wheelchair; E86.1 Hypovolemia; H90.5 Unspecified sensorineural hearing loss; H61.22 Impacted cerumen, left ear; E86.0 Dehydration; A49.02 Methicillin resistant Staphylococcus aureus infection, unspecified site; B96.1 Klebsiella pneumoniae [K. pneumoniae] as the cause of diseases classified elsewhere; B95.1 Streptococcus, group B, as the cause of diseases classified elsewhere; K29.70 Gastritis, unspecified, without bleeding; K57.30 Diverticulosis of large intestine without perforation or abscess without bleeding; D12.5 Benign neoplasm of sigmoid colon; K64.8 Other hemorrhoids; K62.89 Other specified diseases of anus and rectum
CPT/HCPCS: 36415; 71045-TC-FY; 71046-TC-FY; 74019-TC-FY; 76000-TC-FY; 80048; 80053; 82550; 82565; 82803; 82941; 82962; 83497; 83605; 83735; 84100; 84484; 84520; 85025; 85027; 85610; 85651; 85730; 86140; 86316; 86704; 86706; 86708; 86803; 86850; 86900; 86901; 87040; 87045; 87046; 87070; 87177; 87186; 87205; 87209; 87324; 87340; 87389; 87449; 87493; 88305-TC; 93005; 93010; 97161-GP; 99285-25; J0131; J0885; J1644; J7030; P9047

== ENCOUNTER 2023-08-22 08:38 | Emergency (ER) | payer OTHER ==
[2023-08-22 09:04] VITALS: BMI 25.7
[2023-08-22] MEDS ORDERED: SODIUM CHLORIDE 0.9% 500 ML INFUS.BAG IV ONE (09:18)
[2023-08-22 10:07] LABS: HEMATOCRIT 25.2 % (35.4-49); HEMOGLOBIN 7.9 GM/dL (11.7-16.9); MCH 28.9 pg (25.7-33.7); MCHC 31.5 g/dl (32.0-35.9); MEAN CELL VOLUME 91.9 fl (80-96); MEAN PLT VOLUME 8.8 fl (7.5-11.1); PLATELET COUNT 120 10^3/uL (134-434); RBC 2.74 M/mm3 (4.00-5.60); RDW 15.8 % (11.9-15.9); WHITE BLOOD COUNT 4.5 K/mm3 (4.0-10.0)
[2023-08-22 10:35] LABS: CALCIUM 9.2 mg/dL (8.5-10.1); MAGNESIUM 2.5 mg/dL (1.8-2.4)
[2023-08-22 10:36] LABS: ALBUMIN 2.6 g/dl (3.4-5.0)
[2023-08-22 10:38] LABS: PHOSPHOROUS 3.6 mg/dL (2.5-4.9)
[2023-08-22 10:39] LABS: CREATININE 5.3 mg/dL (0.55-1.3)
[2023-08-22 10:40] LABS: BILIRUBIN,TOTAL 0.2 mg/dL (0.2-1); TOT PROT 5.6 g/dl (6.4-8.2)
[2023-08-22] MEDS ORDERED: LACTATED RINGERS SOLUTION 1,000 ML/1,000 ML INFUS.BAG IV SCH (13:30)
[2023-08-22 15:09] VITALS: BP 116/65; PULSE 78; RESP 16; TEMP 98.6
== END 2023-08-22 15:56 | disposition short-term general hospital (02) ==
LOC: JER 08:38
DX: R50.9 Fever, unspecified (principal); N17.9 Acute kidney failure, unspecified; Z20.822 Contact with and (suspected) exposure to COVID-19
CPT/HCPCS: 0241U-QW; 36415; 71045-TC-FY; 76775-TC; 76856-TC; 80053; 83735; 84100; 84484; 85025; 93005; 93010; 99285-25

== ENCOUNTER 2023-12-20 08:46 | Inpatient (IN) | payer OTHER ==
[2023-12-20] MEDS ORDERED: ACETAMINOPHEN INJECTION 100 ML IVPB ONE (09:21)
[2023-12-20] MEDS: LACTATED RINGERS SOLUTION 1000 ML INFUS.BAG IV ONE ×3 (09:56→18:24)
[2023-12-20] MEDS: ACETAMINOPHEN 1000 MG/100 ML BAG IVPB ONE (09:56)
[2023-12-20 10:05] LABS: BASO % 0.3 % (0-2.0); EOS % 0.1 % (0-4.5); HEMATOCRIT 19.5 % (35.4-49); LYMPH % 8.6 % (8-40); MCH 33.9 pg (25.7-33.7); MCHC 32.6 g/dl (32.0-35.9); MEAN PLT VOLUME 7.8 fl (7.5-11.1); MONO % 5.1 % (3.8-10.2); NEUT % 85.9 % (42.8-82.8); PLATELET COUNT 119 10^3/uL (134-434); RBC 1.88 M/mm3 (4.00-5.60); RDW 16.7 % (11.9-15.9); WHITE BLOOD COUNT 7.1 K/mm3 (4.0-10.0)
[2023-12-20 10:10] LABS: INR 1.42 (0.83-1.09); PROTHROMBIN TIME (PATIENT) 16.4 SEC (9.7-13.0)
[2023-12-20 10:13] LABS: ACTIVATED PTT 30.5 SECONDS (25.2-36.5)
[2023-12-20 10:16] LABS: HEMOGLOBIN 6.4 GM/dL (11.7-16.9)
[2023-12-20 10:29] LABS: CHLORIDE 103 mmol/L (98-107); SODIUM 140 mmol/L (136-145)
[2023-12-20 10:31] LABS: ALBUMIN 2.1 g/dl (3.4-5.0); CALCIUM 8.8 mg/dL (8.5-10.1)
[2023-12-20 10:32] LABS: BLOOD UREA NITROGEN 17.6 mg/dL (7-18); CO2 33 mmol/L (21-32); GLUCOSE,RANDOM 79 mg/dL (74-106); MAGNESIUM 1.3 mg/dL (1.8-2.4)
[2023-12-20 10:34] LABS: PHOSPHOROUS 2.3 mg/dL (2.5-4.9); SGPT/ALT < 6 U/L (13-61)
[2023-12-20 10:35] LABS: CREATININE 1.3 mg/dL (0.55-1.3); SGOT/AST 10 U/L (15-37)
[2023-12-20 10:36] LABS: BILIRUBIN,TOTAL 0.6 mg/dL (0.2-1); TOT PROT 5.6 g/dl (6.4-8.2)
[2023-12-20 10:37] LABS: ALK PHOS 50 U/L (45-117)
[2023-12-20 10:40] LABS: ANION GAP 4 mmol/L (4-13); POTASSIUM 2.8 mmol/L (3.5-5.1)
[2023-12-20] MEDS ORDERED: POTASSIUM CHLORIDE ORAL LIQUID 20 MEQ/15 ML ONE (10:50)
[2023-12-20] MEDS ORDERED: MAGNESIUM SULFATE IN WATER 2 GM/50 ML IVPB IVPB ONE (10:50)
[2023-12-20] MEDS ORDERED: KCL 10 MEQ IVPB 10 MEQ/100 ML INFUS.BAG IVPB ONE ×3 (10:50→14:13)
[2023-12-20] MEDS: POTASSIUM CHLORIDE ORAL LIQUID 20 MEQ/15 ML PO ONE (10:57)
[2023-12-20] MEDS: KCL 20 MEQ PREMIX BAG 20 MEQ/100 ML INFUS.BAG IVPB SCH (11:29)
[2023-12-20] MEDS: MAGNESIUM SULFATE IN WATER 2 GM/50 ML IVPB IVPB ONE (11:41)
[2023-12-20] MEDS: KCL 10 MEQ IVPB 10 MEQ/100 ML INFUS.BAG IVPB SCH (11:42)
[2023-12-20] MEDS ORDERED: CLINDAMYCIN 600MG PREMIX IVPB 600 MG/50 ML BAG IVPB ONE (12:30)
[2023-12-20] MEDS: CLINDAMYCIN 600MG PREMIX IVPB 600 MG/50 ML BAG IVPB ONE (12:46)
[2023-12-20 16:14] LABS: EPI CELLS 5 /uL (0-25.1); HYALINE CASTS 2 /uL (0-3.1); PH,URINE 5.5 (5.0-8.0); URINE APPEARANCE CLEAR; URINE BACTERIA 615 /uL (0-1359); URINE BILIRUBIN NEGATIVE (NEGATIVE); URINE COLOR YELLOW; URINE GLUCOSE (UA) NEGATIVE (NEGATIVE); URINE KETONE NEGATIVE (NEGATIVE); URINE LEUK ESTERASE 2+ (NEGATIVE); URINE NITRITE NEGATIVE (NEGATIVE); URINE PROTEIN 1+ (NEGATIVE); URINE RBC 64 /uL (0-23.9); URINE UROBILINOGEN 0.2 mg/dL (0.2-1.0); URINE WBC 649 /uL (0-25.8)
[2023-12-20] MEDS ORDERED: CEFTRIAXONE 1 GM/50 ML BAG ONE (16:43)
[2023-12-20] MEDS ORDERED: ACETAMINOPHEN 325 MG TABLET (FP) ONE (18:18)
[2023-12-20] MEDS: ACETAMINOPHEN 325 MG TABLET (FP) PO ONE (18:23)
[2023-12-20] MEDS ORDERED: POTASSIUM CHLORIDE TABS 20 MEQ TABLET.ER (FP) PO ONE (19:00)
[2023-12-20] MEDS: POTASSIUM CHLORIDE TABS 20 MEQ TABLET.ER (FP) PO ONE (19:03)
[2023-12-20] MEDS ORDERED: TACROLIMUS ANHYDROUS 5 MG CAPSULE PO SCH (22:00)
[2023-12-20 22:08] LABS: IRON SERUM 13 ug/dL (50-175); TOTAL IRON BINDING CAPACITY 110 ug/dL (250-450)
[2023-12-20] MEDS: TACROLIMUS ANHYDROUS 1 MG CAPSULE PO SCH (22:47)
[2023-12-20 23:26] VITALS: BMI 24.0
[2023-12-20] MEDS: ACETAMINOPHEN 325 MG TABLET (FP) PO PRN (23:54)
[2023-12-21 09:20] LABS: BASO % 0.3 % (0-2.0); EOS % 0.2 % (0-4.5); HEMOGLOBIN 7.4 GM/dL (11.7-16.9); LYMPH % 8.6 % (8-40); MCH 32.9 pg (25.7-33.7); MCHC 33.5 g/dl (32.0-35.9); MEAN CELL VOLUME 98.2 fl (80-96); MEAN PLT VOLUME 7.6 fl (7.5-11.1); MONO % 6.8 % (3.8-10.2); NEUT % 84.1 % (42.8-82.8); PLATELET COUNT 94 10^3/uL (134-434); RBC 2.24 M/mm3 (4.00-5.60); RDW 19.7 % (11.9-15.9); WHITE BLOOD COUNT 5.7 K/mm3 (4.0-10.0)
[2023-12-21] MEDS: MIDODRINE HCL 5 MG TABLET PO SCH (09:22)
[2023-12-21] MEDS: FOLIC ACID 1 MG TABLET (FP) PO SCH (09:30)
[2023-12-21] MEDS: TAMSULOSIN HCL 0.4 MG CAP PO SCH (09:30)
[2023-12-21] MEDS: predniSONE 5 MG TABLET (UD) PO SCH (09:30)
[2023-12-21] MEDS: THIAMINE 100 MG TABLET PO SCH (09:31)
[2023-12-21] MEDS: ATORVASTATIN CA 10 MG TABLET (FP) PO SCH (09:31)
[2023-12-21] MEDS: FLUDROCORTISONE ACETATE 0.1 MG TABLET (FP) PO SCH (09:32)
[2023-12-21 10:20] LABS: CALCIUM 8.9 mg/dL (8.5-10.1)
[2023-12-21 10:21] LABS: ALBUMIN 1.9 g/dl (3.4-5.0); MAGNESIUM 1.8 mg/dL (1.8-2.4)
[2023-12-21 10:22] LABS: BLOOD UREA NITROGEN 16.9 mg/dL (7-18)
[2023-12-21 10:24] LABS: CREATININE 1.1 mg/dL (0.55-1.3)
[2023-12-21 10:25] LABS: BILIRUBIN,TOTAL 1.1 mg/dL (0.2-1); TOT PROT 5.1 g/dl (6.4-8.2)
[2023-12-21] MEDS: INSULIN ASPART SLIDING SCALE (NOVOLOG) 1 VIAL SQ SCH (11:20)
[2023-12-21 14:20] LABS: BILIRUBIN,DIRECT 0.3 mg/dL (0.0-0.2)
[2023-12-21] MEDS: PANTOPRAZOLE 40 MG TABLET PO SCH (16:28)
[2023-12-21] MEDS: POTASSIUM PHOSPHATE 15 MM in SODIUM CHLORIDE 250 ML IVPB ONE (16:28)
[2023-12-21] MEDS: SODIUM CHLORIDE IVPB SCH (17:15)
[2023-12-21] MEDS: DAPTOMYCIN IVPB SCH (17:15)
[2023-12-22 08:57] LABS: HEMATOCRIT 22.9 % (35.4-49); HEMOGLOBIN 7.6 GM/dL (11.7-16.9); MCH 32.7 pg (25.7-33.7); MCHC 33.1 g/dl (32.0-35.9); MEAN CELL VOLUME 98.5 fl (80-96); MEAN PLT VOLUME 7.9 fl (7.5-11.1); PLATELET COUNT 94 10^3/uL (134-434); RBC 2.32 M/mm3 (4.00-5.60); RDW 19.2 % (11.9-15.9); WHITE BLOOD COUNT 4.8 K/mm3 (4.0-10.0)
[2023-12-22] MEDS: ASCORBIC ACID 500 MG TABLET (FP) PO SCH (09:20)
[2023-12-22] MEDS: AMINO ACIDS/PROTEIN HYDROLYS 30 ML LIQUID.PKT PO SCH (09:20)
[2023-12-22] MEDS ORDERED: SODIUM CHLORIDE IVPB SCH (10:00)
[2023-12-22] MEDS ORDERED: DAPTOMYCIN IVPB SCH (10:00)
[2023-12-22 10:11] LABS: ALBUMIN 1.9 g/dl (3.4-5.0); BLOOD UREA NITROGEN 17.7 mg/dL (7-18); CALCIUM 9.2 mg/dL (8.5-10.1)
[2023-12-22 10:14] LABS: CREATININE 1.1 mg/dL (0.55-1.3)
[2023-12-22 10:16] LABS: BILIRUBIN,TOTAL 0.4 mg/dL (0.2-1); TOT PROT 5.3 g/dl (6.4-8.2)
[2023-12-22] MEDS: IRON SUCROSE INJECTION 200 MG in SODIUM CHLORIDE 100 ML IVPB ONE (12:21)
[2023-12-22] MEDS: FERROUS GLUCONATE 324 MG TAB (FP) PO SCH (12:21)
[2023-12-22] MEDS ORDERED: INSULIN (NOVOLOG) ASPART 100 UNITS/ML 10ML VIAL ONE (21:49)
[2023-12-23 08:22] LABS: HEMOGLOBIN 8.3 GM/dL (11.7-16.9); MCH 32.8 pg (25.7-33.7); MCHC 33.1 g/dl (32.0-35.9); MEAN CELL VOLUME 99.2 fl (80-96); MEAN PLT VOLUME 8.3 fl (7.5-11.1); PLATELET COUNT 94 10^3/uL (134-434); RBC 2.52 M/mm3 (4.00-5.60); RDW 18.8 % (11.9-15.9); WHITE BLOOD COUNT 4.5 K/mm3 (4.0-10.0)
[2023-12-23 08:27] LABS: POTASSIUM 4.1 mmol/L (3.5-5.1)
[2023-12-23 08:34] LABS: BLOOD UREA NITROGEN 18.2 mg/dL (7-18)
[2023-12-23 08:37] LABS: CREATININE 1.1 mg/dL (0.55-1.3)
[2023-12-23 22:07] VITALS: RESP 18
[2023-12-24 07:27] VITALS: BP 138/69; PULSE 79; TEMP 98.1
[2023-12-24] MEDS: TENOFOVIR ALAFENAMIDE FUMARATE 25 MG PO SCH (09:56)
[2023-12-24] MEDS ORDERED: DAPTOMYCIN 680 MG in SODIUM CHLORIDE 50 ML IVPB SCH (10:00)
== END 2023-12-24 09:55 | DRG 811 ==
LOC: JER 08:46 → JERBED 16:40 → J7W 21:09
PROVIDERS: ADMIT Internal Medicine; ATTEND Internal Medicine
PROC: 30233N1 Transfusion of Nonautologous Red Blood Cells into Peripheral Vein, Percutaneous Approach (ICD-10-PCS; 2023-12-20)
PROC: 05HY33Z Insertion of Infusion Device into Upper Vein, Percutaneous Approach (ICD-10-PCS; principal; 2023-12-23)
DX: D64.9 Anemia, unspecified (principal); L89.154 Pressure ulcer of sacral region, stage 4; Z94.0 Kidney transplant status; R78.81 Bacteremia; M86.9 Osteomyelitis, unspecified; K52.9 Noninfective gastroenteritis and colitis, unspecified; I12.9 Hypertensive chronic kidney disease with stage 1 through stage 4 chronic kidney disease, or unspecified chronic kidney disease; E11.22 Type 2 diabetes mellitus with diabetic chronic kidney disease; N18.9 Chronic kidney disease, unspecified
CPT/HCPCS: 0241U-QW; 36415; 36430; 36569; 71045-TC-FY; 73630-TC-RT-FY; 74177-TC; 76705-TC; 80048; 80053; 80197; 81003; 82248; 82272; 82550; 82728; 83036; 83540; 83550; 83605; 83735; 84100; 84443; 84466; 84484; 85025; 85027; 85610; 85730; 86140; 86850; 86900; 86901; 86922; 87040; 87045; 87046; 87070; 87086; 87186; 87205; 87209; 87324; 87449; 93005; 93010; 99285-25; E0186; J0131; J0878; J1756; P9058

== ENCOUNTER 2024-03-05 09:53 | Inpatient (IN) | payer OTHER ==
[2024-03-05 10:14] VITALS: BMI 19.8
[2024-03-05] MEDS: LACTATED RINGERS SOLUTION 1000 ML INFUS.BAG IV ONE ×2 (11:28→17:57)
[2024-03-05 11:31] LABS: HEMATOCRIT 24.8 % (35.4-49); HEMOGLOBIN 7.9 GM/dL (11.7-16.9); MCH 31.2 pg (25.7-33.7); MCHC 31.8 g/dl (32.0-35.9); MEAN CELL VOLUME 98.3 fl (80-96); MEAN PLT VOLUME 7.9 fl (7.5-11.1); PLATELET COUNT 158 10^3/uL (134-434); RBC 2.52 M/mm3 (4.00-5.60); RDW 15.4 % (11.9-15.9); WHITE BLOOD COUNT 6.1 K/mm3 (4.0-10.0)
[2024-03-05 11:35] LABS: INR 1.15 (0.83-1.09); PROTHROMBIN TIME (PATIENT) 12.9 SEC (9.7-13.0)
[2024-03-05 11:38] LABS: ACTIVATED PTT 32.4 SECONDS (25.2-36.5)
[2024-03-05 11:55] LABS: ANISOCYTOSIS 0; MACROCYTOSIS 0
[2024-03-05 12:35] LABS: POTASSIUM 5.1 mmol/L (3.5-5.1)
[2024-03-05 12:37] LABS: ALBUMIN 2.5 g/dl (3.4-5.0); BLOOD UREA NITROGEN 40.9 mg/dL (7-18); CALCIUM 9.1 mg/dL (8.5-10.1)
[2024-03-05 12:39] LABS: BILIRUBIN,TOTAL 0.4 mg/dL (0.2-1); TOT PROT 6.2 g/dl (6.4-8.2)
[2024-03-05 12:51] LABS: CREATININE 1.4 mg/dL (0.55-1.3)
[2024-03-05] MEDS ORDERED: ACETAMINOPHEN INJECTION 100 ML IVPB ONE (13:49)
[2024-03-05] MEDS: ACETAMINOPHEN 1000 MG/100 ML BAG IVPB ONE (13:53)
[2024-03-05] MEDS ORDERED: CEFTRIAXONE 1 GM/50 ML BAG ONE (15:45)
[2024-03-05] MEDS: CEFTRIAXONE 1 GM in DEXTROSE 5%-WATER - 50 ML IVPB SCH (16:12)
[2024-03-05 16:21] LABS: EPI CELLS 4 /uL (0-25.1); HYALINE CASTS 0 /uL (0-3.1); PH,URINE 5.5 (5.0-8.0); URINE APPEARANCE CLOUDY; URINE BACTERIA >9,000 /uL (0-1359); URINE BILIRUBIN NEGATIVE (NEGATIVE); URINE COLOR YELLOW; URINE GLUCOSE (UA) NEGATIVE (NEGATIVE); URINE KETONE NEGATIVE (NEGATIVE); URINE LEUK ESTERASE 3+ (NEGATIVE); URINE NITRITE NEGATIVE (NEGATIVE); URINE PROTEIN 1+ (NEGATIVE); URINE RBC 76 /uL (0-23.9); URINE UROBILINOGEN 0.2 mg/dL (0.2-1.0); URINE WBC 1823 /uL (0-25.8)
[2024-03-06] MEDS: PANTOPRAZOLE 40 MG TABLET PO SCH (11:22)
[2024-03-06] MEDS: BANATROL PLUS POWDER PACKET PO SCH (15:07)
[2024-03-06] MEDS: IRON SUCROSE INJECTION 200 MG in SODIUM CHLORIDE 100 ML IVPB ONE (15:07)
[2024-03-06 15:41] VITALS: RESP 18
[2024-03-06] MEDS: predniSONE 5 MG TABLET (UD) PO SCH (17:41)
[2024-03-06] MEDS: TACROLIMUS ANHYDROUS 5 MG, TACROLIMUS ANHYDROUS 1 MG PO SCH (17:42)
[2024-03-06] MEDS: MYCOPHENOLATE SODIUM 360 MG TABLET.DR PO SCH (17:44)
[2024-03-06] MEDS: SODIUM CHLORIDE 0.45% 1,000 ML IV SCH (17:46)
[2024-03-06] MEDS: TACROLIMUS ANHYDROUS 5 MG CAPSULE PO SCH (19:58)
[2024-03-07 09:36] LABS: HEMATOCRIT 20.3 % (35.4-49); MCH 30.6 pg (25.7-33.7); MCHC 31.8 g/dl (32.0-35.9); MEAN CELL VOLUME 96.1 fl (80-96); MEAN PLT VOLUME 8.1 fl (7.5-11.1); PLATELET COUNT 139 10^3/uL (134-434); RBC 2.11 M/mm3 (4.00-5.60); RDW 15.5 % (11.9-15.9); WHITE BLOOD COUNT 4.2 K/mm3 (4.0-10.0)
[2024-03-07 09:41] LABS: HEMOGLOBIN 6.5 GM/dL (11.7-16.9)
[2024-03-07 10:14] LABS: CALCIUM 8.8 mg/dL (8.5-10.1)
[2024-03-07 10:15] LABS: ALBUMIN 2.2 g/dl (3.4-5.0); BLOOD UREA NITROGEN 33.6 mg/dL (7-18)
[2024-03-07 10:17] LABS: CREATININE 1.3 mg/dL (0.55-1.3)
[2024-03-07 10:20] LABS: BILIRUBIN,TOTAL 0.3 mg/dL (0.2-1); TOT PROT 5.3 g/dl (6.4-8.2)
[2024-03-07] MEDS: FERROUS SO4 325 MG TABLET (FP) PO SCH (10:43)
[2024-03-07] MEDS ORDERED: FOSFOMYCIN TROMETHAMINE 3 GM/PKT FOR ORAL SOLUTION PO ONE (11:00)
[2024-03-07 11:50] LABS: ANISOCYTOSIS 0; MACROCYTOSIS 0; OVALOCYTE 1+
[2024-03-07] MEDS: IRON SUCROSE INJECTION 200 MG in SODIUM CHLORIDE 100 ML IVPB ONE (15:03)
[2024-03-07] MEDS: ERTAPENEM SODIUM 1 GM in SODIUM CHLORIDE 50 ML IVPB SCH (15:03)
[2024-03-08 08:18] LABS: HEMATOCRIT 26.8 % (35.4-49); HEMOGLOBIN 8.9 GM/dL (11.7-16.9); MCH 30.6 pg (25.7-33.7); MCHC 33.3 g/dl (32.0-35.9); MEAN CELL VOLUME 91.9 fl (80-96); PLATELET COUNT 165 10^3/uL (134-434); RBC 2.92 M/mm3 (4.00-5.60); RDW 16.3 % (11.9-15.9)
[2024-03-08 08:21] LABS: POTASSIUM 5.3 mmol/L (3.5-5.1)
[2024-03-08 08:25] LABS: CALCIUM 8.9 mg/dL (8.5-10.1)
[2024-03-08 08:26] LABS: ALBUMIN 2.3 g/dl (3.4-5.0); BLOOD UREA NITROGEN 32.7 mg/dL (7-18)
[2024-03-08 08:29] LABS: CREATININE 1.2 mg/dL (0.55-1.3)
[2024-03-08 08:30] LABS: TOT PROT 5.8 g/dl (6.4-8.2)
[2024-03-08] MEDS: SODIUM ZIRCONIUM CYCLOSILICATE (LOKELMA) 5 GM PACKET PO SCH (17:13)
[2024-03-09 06:15] VITALS: TEMP 98.2
[2024-03-09 11:27] VITALS: BP 128/76; PULSE 75
[2024-03-09] MEDS ORDERED: FERROUS SO4 325 MG TABLET (FP) PO SCH (22:00)
== END 2024-03-09 11:38 | DRG 812 ==
LOC: JER 09:53 → JERBED 15:43 → J8W 22:21
PROVIDERS: ADMIT Internal Medicine; ATTEND Internal Medicine
PROC: 30233N1 Transfusion of Nonautologous Red Blood Cells into Peripheral Vein, Percutaneous Approach (ICD-10-PCS; principal; 2024-03-08)
DX: D64.9 Anemia, unspecified (principal); N39.0 Urinary tract infection, site not specified; Z94.0 Kidney transplant status; I12.9 Hypertensive chronic kidney disease with stage 1 through stage 4 chronic kidney disease, or unspecified chronic kidney disease; E78.5 Hyperlipidemia, unspecified; L89.150 Pressure ulcer of sacral region, unstageable; L89.620 Pressure ulcer of left heel, unstageable; E11.621 Type 2 diabetes mellitus with foot ulcer; N18.9 Chronic kidney disease, unspecified; Z74.01 Bed confinement status
CPT/HCPCS: 0241U-QW; 36415; 36430; 36511; 71045-TC-FY; 80053; 80197; 81003; 82272; 82550; 83036; 83540; 83550; 83605; 84484; 85025; 85027; 85610; 85730; 86850; 86900; 86901; 86922; 87040; 87086; 87186; 93005; 93010; 99285-25; J0131; J1756; P9038; P9058

== ENCOUNTER 2024-07-13 11:26 | Emergency (ER) | payer OTHER ==
[2024-07-13 12:15] VITALS: TEMP 99.3; BMI 20.5
[2024-07-13] MEDS ORDERED: LINEZOLID 600 MG PREMIX BAG 600 MG/300 ML BAG IVPB SCH (12:45)
[2024-07-13] MEDS ORDERED: ACETAMINOPHEN INJECTION 100 ML ONE (13:20)
[2024-07-13] MEDS ORDERED: CLINDAMYCIN 600MG PREMIX IVPB 600 MG/50 ML BAG IVPB ONE (13:21)
[2024-07-13] MEDS: CLINDAMYCIN 600MG PREMIX IVPB 600 MG/50 ML BAG IVPB ONE (13:31)
[2024-07-13] MEDS: ACETAMINOPHEN 1000 MG/100 ML BAG IVPB ONE (13:31)
[2024-07-13 13:38] LABS: BASO % 0.1 % (0-2.0); EOS % 1.1 % (0-4.5); HEMATOCRIT 28.1 % (35.4-49); HEMOGLOBIN 8.8 GM/dL (11.7-16.9); LYMPH % 13.3 % (8-40); MCH 28.6 pg (25.7-33.7); MCHC 31.4 g/dl (32.0-35.9); MEAN CELL VOLUME 91.1 fl (80-96); MEAN PLT VOLUME 8.3 fl (7.5-11.1); MONO % 9.6 % (3.8-10.2); NEUT % 75.9 % (42.8-82.8); PLATELET COUNT 167 10^3/uL (134-434); RBC 3.09 M/mm3 (4.00-5.60); RDW 13.8 % (11.9-15.9)
[2024-07-13 13:46] LABS: INR 1.24 (0.83-1.09); PROTHROMBIN TIME (PATIENT) 13.9 SEC (9.7-13.0)
[2024-07-13] MEDS: LACTATED RINGERS SOLUTION 1000 ML INFUS.BAG IV ONE ×2 (13:47→18:16)
[2024-07-13 13:56] LABS: POTASSIUM 5.7 mmol/L (3.5-5.1)
[2024-07-13 13:59] LABS: ALBUMIN 2.9 g/dl (3.4-5.0); BLOOD UREA NITROGEN 96.6 mg/dL (7-18); CALCIUM 9.3 mg/dL (8.5-10.1)
[2024-07-13 14:02] LABS: CREATININE 4.4 mg/dL (0.55-1.3)
[2024-07-13 14:04] LABS: BILIRUBIN,TOTAL 0.4 mg/dL (0.2-1); TOT PROT 6.3 g/dl (6.4-8.2)
[2024-07-13] MEDS ORDERED: PIPERACILLIN/TAZOB 4.5 GM 4.5 GM/100 ML BAG IVPB ONE (14:07)
[2024-07-13] MEDS: PIPERACILLIN/TAZOB 4.5 GM 4.5 GM in DEXTROSE 5%-WATER 100 ML IVPB ONE (14:15)
[2024-07-13] MEDS ORDERED: LINEZOLID 600 MG PREMIX BAG 600 MG/300 ML BAG IVPB ONE (15:35)
[2024-07-13] MEDS: LINEZOLID 600 MG PREMIX BAG 600 MG/300 ML BAG IVPB SCH (15:41)
[2024-07-13 18:15] VITALS: BP 94/65; PULSE 89; RESP 18
== END 2024-07-13 18:22 | disposition short-term general hospital (02) ==
LOC: JER 11:26
DX: N17.9 Acute kidney failure, unspecified (principal); K61.0 Anal abscess; Z94.0 Kidney transplant status
CPT/HCPCS: 0241U-QW; 36415; 71045-TC-FY; 76775-TC; 76870-TC; 80053; 80197; 82550; 83605; 85025; 85610; 86850; 86900; 86901; 87040; 87070; 87186; 87205; 93005; 93010; 99285-25; J0131

== ENCOUNTER 2024-07-28 11:48 | Inpatient (IN) | payer OTHER ==
[2024-07-28 12:34] VITALS: BMI 19.8
[2024-07-28 12:57] LABS: BASO % 0.3 % (0-2.0); EOS % 0.2 % (0-4.5); HEMATOCRIT 25.4 % (35.4-49); HEMOGLOBIN 7.8 GM/dL (11.7-16.9); LYMPH % 17.5 % (8-40); MCH 29.1 pg (25.7-33.7); MCHC 30.8 g/dl (32.0-35.9); MEAN CELL VOLUME 94.6 fl (80-96); MEAN PLT VOLUME 9.3 fl (7.5-11.1); MONO % 4.9 % (3.8-10.2); NEUT % 77.1 % (42.8-82.8); PLATELET COUNT 98 10^3/uL (134-434); RBC 2.68 M/mm3 (4.00-5.60); RDW 15.7 % (11.9-15.9); WHITE BLOOD COUNT 8.6 K/mm3 (4.0-10.0)
[2024-07-28] MEDS ORDERED: CEFEPIME HCL/D5W 1 GM/50 ML BAG IVPB ONE ×2 (12:59→21:47)
[2024-07-28 13:00] LABS: VENOUS BASE EXCESS -4.7 mmol/L (-2-2); VENOUS PCO2 36.2 mmHg (38-52); VENOUS PH 7.365 (7.310-7.410)
[2024-07-28 13:04] LABS: INR 2.21 (0.83-1.09); PROTHROMBIN TIME (PATIENT) 24.8 SEC (9.7-13.0)
[2024-07-28] MEDS: SODIUM CHLORIDE 0.9% 1000 ML INFUS.BAG IV STA (13:06)
[2024-07-28] MEDS: CEFEPIME HCL 1 GM VIAL (RESTRICTED TO ID) IVPB ONE (13:06)
[2024-07-28 13:07] LABS: ACTIVATED PTT 40.1 SECONDS (25.2-36.5)
[2024-07-28] MEDS ORDERED: LINEZOLID 600 MG PREMIX BAG 600 MG/300 ML BAG IVPB ONE (13:31)
[2024-07-28] MEDS: LINEZOLID 600 MG PREMIX BAG 600 MG in PREMIX 300 IV ONE (13:35)
[2024-07-28 14:07] LABS: ALBUMIN 2.1 g/dl (3.4-5.0); BILIRUBIN,TOTAL 0.9 mg/dL (0.2-1); BLOOD UREA NITROGEN 42.9 mg/dL (7-18); CALCIUM 8.7 mg/dL (8.5-10.1); CREATININE 2.3 mg/dL (0.55-1.3); TOT PROT 5.5 g/dl (6.4-8.2)
[2024-07-28] MEDS ORDERED: ACETAMINOPHEN INJECTION 100 ML ONE (14:28)
[2024-07-28] MEDS: ACETAMINOPHEN 1000 MG/100 ML BAG IVPB ONE (14:39)
[2024-07-28 15:49] LABS: EPI CELLS 6 /uL (0-25.1); HYALINE CASTS 0 /uL (0-3.1); PH,URINE 5.5 (5.0-8.0); URINE APPEARANCE TURBID; URINE BACTERIA >9,000 /uL (0-1359); URINE BILIRUBIN 1+ (NEGATIVE); URINE COLOR DK YELLOW; URINE GLUCOSE (UA) NEGATIVE (NEGATIVE); URINE KETONE TRACE (NEGATIVE); URINE LEUK ESTERASE 2+ (NEGATIVE); URINE NITRITE NEGATIVE (NEGATIVE); URINE PROTEIN 3+ (NEGATIVE); URINE RBC 1999 /uL (0-23.9); URINE UROBILINOGEN 0.2 mg/dL (0.2-1.0); URINE WBC 4518 /uL (0-25.8)
[2024-07-28 16:20] LABS: POTASSIUM 4.5 mmol/L (3.5-5.1)
[2024-07-28 16:22] LABS: CALCIUM 7.9 mg/dL (8.5-10.1)
[2024-07-28 16:23] LABS: ALBUMIN 1.9 g/dl (3.4-5.0); BLOOD UREA NITROGEN 37.5 mg/dL (7-18)
[2024-07-28 16:26] LABS: CREATININE 2.1 mg/dL (0.55-1.3)
[2024-07-28 16:28] LABS: BILIRUBIN,TOTAL 0.8 mg/dL (0.2-1); TOT PROT 4.6 g/dl (6.4-8.2)
[2024-07-28 17:06] LABS: HEMATOCRIT 20.7 % (35.4-49); MCH 29.1 pg (25.7-33.7); MCHC 30.1 g/dl (32.0-35.9); MEAN CELL VOLUME 96.8 fl (80-96); PLATELET COUNT 84 10^3/uL (134-434); RBC 2.14 M/mm3 (4.00-5.60); RDW 16.4 % (11.9-15.9); WHITE BLOOD COUNT 7.3 K/mm3 (4.0-10.0)
[2024-07-28 17:12] LABS: HEMOGLOBIN 6.2 GM/dL (11.7-16.9)
[2024-07-28] MEDS: LACTATED RINGERS SOLUTION 1000 ML INFUS.BAG IV ONE (17:12)
[2024-07-28 20:06] LABS: ANISOCYTOSIS 1+; MACROCYTOSIS 1+
[2024-07-28] MEDS: LACTATED RINGERS SOLUTION 1,000 ML/1,000 ML INFUS.BAG IV SCH (21:44)
[2024-07-28] MEDS ORDERED: MAGNESIUM OXIDE 400 MG TABLET (FP) ONE (21:47)
[2024-07-28] MEDS: CEFEPIME HCL/D5W 1 GM/50 ML PREMIX BAG IVPB SCH (22:02)
[2024-07-28] MEDS: TACROLIMUS ANHYDROUS 5 MG CAPSULE PO SCH (23:25)
[2024-07-28] MEDS: MAGNESIUM OXIDE 400 MG TABLET (FP) PO SCH (23:57)
[2024-07-28] MEDS: PYRIDOXINE HCL (B-6) 100 MG TABLET PO SCH (23:58)
[2024-07-28] MEDS: SILVER SULFADIAZINE 1% TOP CREAM 50 GM JAR TP SCH (23:58)
[2024-07-29] MEDS: TACROLIMUS ANHYDROUS PO SCH (00:57)
[2024-07-29] MEDS: sitaGLIPtin PHOSPHATE 50 MG TABLET PO SCH (07:46)
[2024-07-29] MEDS: PANTOPRAZOLE 40 MG TABLET PO SCH (07:46)
[2024-07-29] MEDS: metFORMIN HCL 500 MG TABLET (FP) PO SCH (07:46)
[2024-07-29] MEDS: TAMSULOSIN HCL 0.4 MG CAP PO SCH (09:14)
[2024-07-29] MEDS: ASPIRIN 81 MG CHEWABLE TABLETS PO SCH (09:14)
[2024-07-29] MEDS: FOLIC ACID 1 MG TABLET (FP) PO SCH (09:14)
[2024-07-29] MEDS: PYRIDOXINE HCL (B-6) 50 MG TABLET (FP) PO SCH (09:14)
[2024-07-29] MEDS: THIAMINE 100 MG TABLET PO SCH (09:14)
[2024-07-29] MEDS: AMINO ACIDS/PROTEIN HYDROLYS 30 ML LIQUID.PKT PO SCH (09:14)
[2024-07-29] MEDS: predniSONE 5 MG TABLET (UD) PO SCH (09:14)
[2024-07-29] MEDS: CLOPIDOGREL BISULFATE 75 MG TABLET (FP) PO SCH (09:14)
[2024-07-29] MEDS: ASCORBIC ACID 500 MG TABLET (FP) PO SCH (09:15)
[2024-07-29] MEDS: FERROUS GLUCONATE 324 MG TAB (FP) PO SCH (09:15)
[2024-07-29 09:34] LABS: BASO % 0.4 % (0-2.0); EOS % 0.6 % (0-4.5); HEMATOCRIT 20.8 % (35.4-49); LYMPH % 17.2 % (8-40); MCH 29.7 pg (25.7-33.7); MCHC 31.9 g/dl (32.0-35.9); MEAN CELL VOLUME 93.2 fl (80-96); MEAN PLT VOLUME 9.2 fl (7.5-11.1); NEUT % 77.8 % (42.8-82.8); PLATELET COUNT 82 10^3/uL (134-434); RBC 2.23 M/mm3 (4.00-5.60); RDW 15.2 % (11.9-15.9); WHITE BLOOD COUNT 5.1 K/mm3 (4.0-10.0)
[2024-07-29 09:43] LABS: HEMOGLOBIN 6.6 GM/dL (11.7-16.9)
[2024-07-29 09:48] LABS: POTASSIUM 4.3 mmol/L (3.5-5.1)
[2024-07-29 09:54] LABS: ALBUMIN 1.9 g/dl (3.4-5.0); BLOOD UREA NITROGEN 46.8 mg/dL (7-18); CALCIUM 8.3 mg/dL (8.5-10.1); MAGNESIUM 1.7 mg/dL (1.8-2.4)
[2024-07-29 09:57] LABS: CREATININE 2.4 mg/dL (0.55-1.3)
[2024-07-29 09:58] LABS: PHOSPHOROUS 2.9 mg/dL (2.5-4.9)
[2024-07-29 09:59] LABS: BILIRUBIN,TOTAL 1.2 mg/dL (0.2-1); TOT PROT 4.7 g/dl (6.4-8.2)
[2024-07-29] MEDS ORDERED: PATIENT'S OWN MEDICATION (NON-FORMULARY) (Alogliptin Benz/Metformin Hcl [Alogliptin-Metfor PO SCH (10:00)
[2024-07-29] MEDS: CYANOCOBALAMIN (VITAMIN B-12) 100 MCG TABLET PO SCH (10:31)
[2024-07-29] MEDS: CEFEPIME HCL 1 GM VIAL (RESTRICTED TO ID) IVPB SCH (12:32)
[2024-07-29] MEDS: CEFTAZIDIME/AVIBACTAM 2.5 GM in DEXTROSE 5%-WATER - 250 ML IVPB ONE (13:24)
[2024-07-29] MEDS: TENOFOVIR ALAFENAMIDE FUMARATE 25 MG PO SCH (14:47)
[2024-07-29] MEDS: [UNRECOGNIZED DRUG - OTHER] PO SCH (14:47)
[2024-07-29 16:52] LABS: HEMATOCRIT 23.4 % (35.4-49); HEMOGLOBIN 7.4 GM/dL (11.7-16.9); MCH 29.4 pg (25.7-33.7); MCHC 31.7 g/dl (32.0-35.9); MEAN CELL VOLUME 92.8 fl (80-96); MEAN PLT VOLUME 8.3 fl (7.5-11.1); PLATELET COUNT 82 10^3/uL (134-434); RBC 2.52 M/mm3 (4.00-5.60); RDW 15.4 % (11.9-15.9); WHITE BLOOD COUNT 5.3 K/mm3 (4.0-10.0)
[2024-07-29] MEDS: DAPTOMYCIN 420 MG in SODIUM CHLORIDE 50 ML IVPB SCH (18:41)
[2024-07-29] MEDS: CEFTAZIDIME/AVIBACTAM 1.25 GM in DEXTROSE 5%-WATER - 100 ML IVPB SCH (19:49)
[2024-07-29] MEDS: ATORVASTATIN CA 10 MG TABLET (FP) PO SCH (21:51)
[2024-07-30] MEDS: ACETAMINOPHEN 325 MG TABLET (FP) PO PRN (03:13)
[2024-07-30 07:38] LABS: HEMOGLOBIN 7.2 GM/dL (11.7-16.9); MCH 29.5 pg (25.7-33.7); MCHC 31.1 g/dl (32.0-35.9); MEAN CELL VOLUME 94.9 fl (80-96); MEAN PLT VOLUME 9.2 fl (7.5-11.1); PLATELET COUNT 85 10^3/uL (134-434); RBC 2.42 M/mm3 (4.00-5.60); RDW 15.8 % (11.9-15.9); WHITE BLOOD COUNT 3.8 K/mm3 (4.0-10.0)
[2024-07-30 07:55] LABS: BLOOD UREA NITROGEN 52.3 mg/dL (7-18); CALCIUM 8.5 mg/dL (8.5-10.1); MAGNESIUM 1.7 mg/dL (1.8-2.4)
[2024-07-30 07:58] LABS: CREATININE 2.4 mg/dL (0.55-1.3)
[2024-07-30 07:59] LABS: PHOSPHOROUS 3.2 mg/dL (2.5-4.9)
[2024-07-30] MEDS: MAGNESIUM SULFATE IN WATER 2 GM/50 ML IVPB IVPB ONE (10:45)
[2024-07-30] MEDS: PATIENT'S OWN MEDICATION (NON-FORMULARY) (Alpha Lipoic Acid [Alpha Lipoic Acid] 600 MG Cap PO SCH (12:04)
[2024-07-30] MEDS: MINERAL OIL/PET HY-PHL TOPICAL OINTMENT 454 GM JAR TP SCH (14:42)
[2024-07-31 08:54] LABS: BASO % 0.5 % (0-2.0); EOS % 3.7 % (0-4.5); HEMATOCRIT 25.6 % (35.4-49); HEMOGLOBIN 8.1 GM/dL (11.7-16.9); LYMPH % 29.4 % (8-40); MCH 29.6 pg (25.7-33.7); MCHC 31.7 g/dl (32.0-35.9); MEAN CELL VOLUME 93.2 fl (80-96); MEAN PLT VOLUME 8.9 fl (7.5-11.1); MONO % 4.1 % (3.8-10.2); NEUT % 62.3 % (42.8-82.8); PLATELET COUNT 93 10^3/uL (134-434); RBC 2.75 M/mm3 (4.00-5.60); RDW 15.7 % (11.9-15.9)
[2024-07-31 09:10] LABS: POTASSIUM 3.7 mmol/L (3.5-5.1)
[2024-07-31 09:15] LABS: ALBUMIN 1.8 g/dl (3.4-5.0); CALCIUM 8.5 mg/dL (8.5-10.1)
[2024-07-31 09:18] LABS: CREATININE 2.3 mg/dL (0.55-1.3)
[2024-07-31 09:20] LABS: BILIRUBIN,TOTAL 0.7 mg/dL (0.2-1); TOT PROT 4.9 g/dl (6.4-8.2)
[2024-07-31] MEDS: AMMONIUM LACTATE 12% LOTION 225 GM BOTTLE TP SCH (09:25)
[2024-08-01 09:12] LABS: BASO % 0.4 % (0-2.0); EOS % 3.4 % (0-4.5); HEMATOCRIT 25.6 % (35.4-49); LYMPH % 33.5 % (8-40); MCH 29.4 pg (25.7-33.7); MCHC 31.2 g/dl (32.0-35.9); MEAN CELL VOLUME 94.3 fl (80-96); MEAN PLT VOLUME 8.6 fl (7.5-11.1); MONO % 4.4 % (3.8-10.2); NEUT % 58.3 % (42.8-82.8); PLATELET COUNT 110 10^3/uL (134-434); RBC 2.71 M/mm3 (4.00-5.60); RDW 15.4 % (11.9-15.9); WHITE BLOOD COUNT 3.1 K/mm3 (4.0-10.0)
[2024-08-01 09:27] LABS: POTASSIUM 4.1 mmol/L (3.5-5.1)
[2024-08-01 09:34] LABS: ALBUMIN 1.9 g/dl (3.4-5.0); CALCIUM 8.5 mg/dL (8.5-10.1)
[2024-08-01 09:35] LABS: BLOOD UREA NITROGEN 39.1 mg/dL (7-18); MAGNESIUM 1.9 mg/dL (1.8-2.4)
[2024-08-01 09:36] LABS: BILIRUBIN,TOTAL 0.5 mg/dL (0.2-1); TOT PROT 4.9 g/dl (6.4-8.2)
[2024-08-01 09:37] LABS: CREATININE 2.1 mg/dL (0.55-1.3)
[2024-08-01] MEDS: CHOLECALCIFEROL (VIT D3) 1,000 UNIT (25 MCG) TABLET PO SCH (10:51)
[2024-08-02] MEDS: CEFTAZIDIME/AVIBACTAM 1.25 GM in DEXTROSE 5%-WATER - 100 ML IVPB SCH (06:57)
[2024-08-02 09:30] LABS: BASO % 0.5 % (0-2.0); EOS % 2.4 % (0-4.5); HEMATOCRIT 26.1 % (35.4-49); HEMOGLOBIN 8.1 GM/dL (11.7-16.9); LYMPH % 34.4 % (8-40); MCH 29.3 pg (25.7-33.7); MCHC 31.1 g/dl (32.0-35.9); MEAN PLT VOLUME 8.2 fl (7.5-11.1); NEUT % 57.7 % (42.8-82.8); PLATELET COUNT 107 10^3/uL (134-434); RBC 2.78 M/mm3 (4.00-5.60); RDW 15.6 % (11.9-15.9); WHITE BLOOD COUNT 3.7 K/mm3 (4.0-10.0)
[2024-08-02 11:33] LABS: POTASSIUM 4.1 mmol/L (3.5-5.1)
[2024-08-02 11:37] LABS: BLOOD UREA NITROGEN 38.7 mg/dL (7-18)
[2024-08-02 11:40] LABS: CREATININE 2.1 mg/dL (0.55-1.3)
[2024-08-02 11:41] LABS: BILIRUBIN,TOTAL 0.4 mg/dL (0.2-1); TOT PROT 5.3 g/dl (6.4-8.2)
[2024-08-03 10:43] LABS: BASO % 0.5 % (0-2.0); EOS % 1.6 % (0-4.5); HEMATOCRIT 27.4 % (35.4-49); HEMOGLOBIN 8.7 GM/dL (11.7-16.9); LYMPH % 27.2 % (8-40); MCHC 31.9 g/dl (32.0-35.9); MEAN CELL VOLUME 94.2 fl (80-96); MEAN PLT VOLUME 8.3 fl (7.5-11.1); MONO % 5.5 % (3.8-10.2); NEUT % 65.2 % (42.8-82.8); PLATELET COUNT 113 10^3/uL (134-434); RBC 2.91 M/mm3 (4.00-5.60); RDW 15.5 % (11.9-15.9); WHITE BLOOD COUNT 4.9 K/mm3 (4.0-10.0)
[2024-08-03 11:03] LABS: POTASSIUM 4.4 mmol/L (3.5-5.1)
[2024-08-03 11:06] LABS: ALBUMIN 2.2 g/dl (3.4-5.0); BLOOD UREA NITROGEN 32.1 mg/dL (7-18); CALCIUM 9.1 mg/dL (8.5-10.1); MAGNESIUM 2.1 mg/dL (1.8-2.4)
[2024-08-03 11:09] LABS: CREATININE 2.3 mg/dL (0.55-1.3)
[2024-08-03 11:11] LABS: BILIRUBIN,TOTAL 0.6 mg/dL (0.2-1); TOT PROT 5.6 g/dl (6.4-8.2)
[2024-08-03 14:18] VITALS: RESP 18
[2024-08-03] MEDS: [UNRECOGNIZED DRUG - REMARK] IVPUSH PRN (14:56)
[2024-08-04] MEDS ORDERED: INSULIN (LEVEMIR) 100 UNITS/ML UNITS SQ ONE (08:14)
[2024-08-04 08:52] LABS: BASO % 0.4 % (0-2.0); EOS % 1.9 % (0-4.5); HEMATOCRIT 27.2 % (35.4-49); HEMOGLOBIN 8.4 GM/dL (11.7-16.9); LYMPH % 29.7 % (8-40); MCH 29.5 pg (25.7-33.7); MCHC 30.8 g/dl (32.0-35.9); MEAN CELL VOLUME 95.5 fl (80-96); MONO % 6.9 % (3.8-10.2); NEUT % 61.1 % (42.8-82.8); PLATELET COUNT 118 10^3/uL (134-434); RBC 2.84 M/mm3 (4.00-5.60); RDW 15.5 % (11.9-15.9); WHITE BLOOD COUNT 5.4 K/mm3 (4.0-10.0)
[2024-08-04 09:13] LABS: CHLORIDE 116 mmol/L (98-107); POTASSIUM 4.4 mmol/L (3.5-5.1); SODIUM 142 mmol/L (136-145)
[2024-08-04 09:17] LABS: CALCIUM 8.9 mg/dL (8.5-10.1)
[2024-08-04 09:18] LABS: ALBUMIN 2.1 g/dl (3.4-5.0); ANION GAP 7 mmol/L (4-13); CO2 19 mmol/L (21-32); GLUCOSE,RANDOM 80 mg/dL (74-106)
[2024-08-04 09:21] LABS: CREATININE 2.2 mg/dL (0.55-1.3); SGOT/AST 5 U/L (15-37); SGPT/ALT 11 U/L (13-61)
[2024-08-04 09:23] LABS: BILIRUBIN,TOTAL 0.3 mg/dL (0.2-1); TOT PROT 5.1 g/dl (6.4-8.2)
[2024-08-04 09:24] LABS: ALK PHOS 80 U/L (45-117)
[2024-08-05 09:48] LABS: BASO % 0.4 % (0-2.0); HEMATOCRIT 26.8 % (35.4-49); HEMOGLOBIN 8.2 GM/dL (11.7-16.9); LYMPH % 29.8 % (8-40); MCH 29.7 pg (25.7-33.7); MCHC 30.6 g/dl (32.0-35.9); MEAN PLT VOLUME 8.4 fl (7.5-11.1); MONO % 6.3 % (3.8-10.2); NEUT % 61.5 % (42.8-82.8); PLATELET COUNT 131 10^3/uL (134-434); RBC 2.76 M/mm3 (4.00-5.60)
[2024-08-05 10:01] LABS: POTASSIUM 4.8 mmol/L (3.5-5.1)
[2024-08-05 10:09] LABS: BLOOD UREA NITROGEN 27.3 mg/dL (7-18)
[2024-08-05 10:11] LABS: CREATININE 2.2 mg/dL (0.55-1.3)
[2024-08-05 10:13] LABS: BILIRUBIN,TOTAL 0.3 mg/dL (0.2-1); TOT PROT 5.2 g/dl (6.4-8.2)
[2024-08-06 09:23] LABS: BASO % 0.3 % (0-2.0); EOS % 1.7 % (0-4.5); HEMATOCRIT 28.2 % (35.4-49); HEMOGLOBIN 8.7 GM/dL (11.7-16.9); LYMPH % 28.2 % (8-40); MCH 29.9 pg (25.7-33.7); MCHC 30.9 g/dl (32.0-35.9); MEAN CELL VOLUME 96.7 fl (80-96); MEAN PLT VOLUME 8.2 fl (7.5-11.1); MONO % 6.7 % (3.8-10.2); NEUT % 63.1 % (42.8-82.8); PLATELET COUNT 149 10^3/uL (134-434); RBC 2.91 M/mm3 (4.00-5.60)
[2024-08-06 09:46] LABS: CHLORIDE 117 mmol/L (98-107); POTASSIUM 4.8 mmol/L (3.5-5.1); SODIUM 140 mmol/L (136-145)
[2024-08-06 09:49] LABS: CALCIUM 9.3 mg/dL (8.5-10.1)
[2024-08-06 09:50] LABS: ANION GAP 4 mmol/L (4-13); CO2 19 mmol/L (21-32); GLUCOSE,RANDOM 91 mg/dL (74-106)
[2024-08-06 09:54] LABS: ALBUMIN 2.2 g/dl (3.4-5.0)
[2024-08-06 09:56] LABS: SGPT/ALT 10 U/L (13-61)
[2024-08-06 09:57] LABS: CREATININE 2.1 mg/dL (0.55-1.3); SGOT/AST 6 U/L (15-37)
[2024-08-06 09:58] LABS: BILIRUBIN,TOTAL 0.3 mg/dL (0.2-1); TOT PROT 5.5 g/dl (6.4-8.2)
[2024-08-06 09:59] LABS: ALK PHOS 82 U/L (45-117)
[2024-08-06 10:06] LABS: BLOOD UREA NITROGEN 24.9 mg/dL (7-18)
[2024-08-07 09:37] LABS: BASO % 0.4 % (0-2.0); EOS % 1.4 % (0-4.5); HEMATOCRIT 27.1 % (35.4-49); HEMOGLOBIN 8.5 GM/dL (11.7-16.9); LYMPH % 28.1 % (8-40); MCH 30.3 pg (25.7-33.7); MCHC 31.4 g/dl (32.0-35.9); MEAN CELL VOLUME 96.5 fl (80-96); MEAN PLT VOLUME 8.4 fl (7.5-11.1); MONO % 7.8 % (3.8-10.2); NEUT % 62.3 % (42.8-82.8); PLATELET COUNT 151 10^3/uL (134-434); RBC 2.81 M/mm3 (4.00-5.60); WHITE BLOOD COUNT 5.5 K/mm3 (4.0-10.0)
[2024-08-07 09:51] LABS: CHLORIDE 114 mmol/L (98-107); POTASSIUM 5.2 mmol/L (3.5-5.1); SODIUM 140 mmol/L (136-145)
[2024-08-07 09:56] LABS: ALBUMIN 2.1 g/dl (3.4-5.0); ANION GAP 6 mmol/L (4-13); BLOOD UREA NITROGEN 27.8 mg/dL (7-18); CALCIUM 9.3 mg/dL (8.5-10.1); CO2 20 mmol/L (21-32); GLUCOSE,RANDOM 90 mg/dL (74-106)
[2024-08-07 10:00] LABS: BILIRUBIN,TOTAL 0.3 mg/dL (0.2-1); SGOT/AST 7 U/L (15-37); SGPT/ALT 11 U/L (13-61); TOT PROT 5.4 g/dl (6.4-8.2)
[2024-08-07 10:01] LABS: ALK PHOS 80 U/L (45-117)
[2024-08-07 15:25] VITALS: BP 114/66; PULSE 78; TEMP 98.2
[2024-08-07] MEDS: SODIUM ZIRCONIUM CYCLOSILICATE (LOKELMA) 5 GM PACKET PO SCH (17:40)
== END 2024-08-07 18:50 | DRG 698 ==
LOC: JER 11:48 → JERBED 20:19 → J8W 22:38
PROVIDERS: ADMIT Internal Medicine; ATTEND Nurse Practitioner Acute Care
PROC: 02H633Z Insertion of Infusion Device into Right Atrium, Percutaneous Approach (ICD-10-PCS; principal; 2024-08-02)
PROC: B548ZZA Ultrasonography of Superior Vena Cava, Guidance (ICD-10-PCS; 2024-08-02)
DX: T83.511A Infection and inflammatory reaction due to indwelling urethral catheter, initial encounter (principal); A41.9 Sepsis, unspecified organism; L89.154 Pressure ulcer of sacral region, stage 4; U07.1 COVID-19; E43 Unspecified severe protein-calorie malnutrition; R65.20 Severe sepsis without septic shock; T86.19 Other complication of kidney transplant; N17.9 Acute kidney failure, unspecified; Z68.1 Body mass index [BMI] 19.9 or less, adult; B18.1 Chronic viral hepatitis B without delta-agent; I10 Essential (primary) hypertension; N40.0 Benign prostatic hyperplasia without lower urinary tract symptoms; L89.629 Pressure ulcer of left heel, unspecified stage; L89.619 Pressure ulcer of right heel, unspecified stage; Y83.0 Surgical operation with transplant of whole organ as the cause of abnormal reaction of the patient, or of later complication, without mention of misadventure at the time of the procedure; D63.8 Anemia in other chronic diseases classified elsewhere; E11.40 Type 2 diabetes mellitus with diabetic neuropathy, unspecified; N31.9 Neuromuscular dysfunction of bladder, unspecified; D69.6 Thrombocytopenia, unspecified; R62.7 Adult failure to thrive; I25.10 Atherosclerotic heart disease of native coronary artery without angina pectoris; N39.0 Urinary tract infection, site not specified
CPT/HCPCS: 0241U-QW; 36415; 36430; 36558; 71045-TC-FY; 76775-TC; 80048; 80053; 80197; 81003; 82550; 82728; 82803; 82962; 83540; 83550; 83605; 83735; 84100; 84484; 85025; 85027; 85610; 85730; 86850; 86900; 86901; 86922; 87040; 87086; 87184; 87186; 87324; 87449; 87635; 93005; 93010; 99291; J0131; J0878; P9058

== ENCOUNTER 2024-09-06 18:16 | Emergency (ER) | payer OTHER ==
[2024-09-06 19:31] VITALS: BMI 20.5
[2024-09-06 21:19] LABS: BASO % 0.1 % (0-2.0); EOS % 0.5 % (0-4.5); HEMATOCRIT 25.4 % (35.4-49); HEMOGLOBIN 7.8 GM/dL (11.7-16.9); LYMPH % 11.3 % (8-40); MCH 29.9 pg (25.7-33.7); MCHC 30.7 g/dl (32.0-35.9); MEAN CELL VOLUME 97.3 fl (80-96); MEAN PLT VOLUME 7.3 fl (7.5-11.1); MONO % 7.2 % (3.8-10.2); NEUT % 80.9 % (42.8-82.8); PLATELET COUNT 170 10^3/uL (134-434); RBC 2.61 M/mm3 (4.00-5.60); RDW 17.2 % (11.9-15.9); WHITE BLOOD COUNT 14.6 K/mm3 (4.0-10.0)
[2024-09-06 21:26] LABS: INR 1.22 (0.83-1.09)
[2024-09-06 21:29] LABS: ACTIVATED PTT 34.9 SECONDS (25.2-36.5)
[2024-09-06 21:31] LABS: VENOUS BASE EXCESS -22.2 mmol/L (-2-2); VENOUS O2 SATURATION 98.9 % (70-80); VENOUS PCO2 < 16.7 mmHg (38-52)
[2024-09-06 21:41] LABS: CHLORIDE 119 mmol/L (98-107); POTASSIUM 5.5 mmol/L (3.5-5.1); SODIUM 140 mmol/L (136-145); VENOUS PH 7.152 (7.310-7.410)
[2024-09-06 21:43] LABS: ALBUMIN 2.2 g/dl (3.4-5.0); ANION GAP 16 mmol/L (4-13); CO2 5 mmol/L (21-32); GLUCOSE,RANDOM 93 mg/dL (74-106)
[2024-09-06 21:46] LABS: SGPT/ALT 16 U/L (13-61)
[2024-09-06 21:47] LABS: PHOSPHOROUS 6.5 mg/dL (2.5-4.9); SGOT/AST 5 U/L (15-37)
[2024-09-06 21:48] LABS: BILIRUBIN,TOTAL 0.6 mg/dL (0.2-1); TOT PROT 6.1 g/dl (6.4-8.2)
[2024-09-06 21:49] LABS: ALK PHOS 182 U/L (45-117)
[2024-09-06 21:50] LABS: BLOOD UREA NITROGEN 117.9 mg/dL (7-18); CREATININE 10.5 mg/dL (0.55-1.3)
[2024-09-06 21:51] LABS: N-TERMINAL BNP 18551.4 pg/ml (5-125)
[2024-09-06] MEDS: SODIUM CHLORIDE 0.9% 500 ML INFUS.BAG IV ONE (22:54)
[2024-09-06 23:18] LABS: URINE APPEARANCE TURBID; URINE BILIRUBIN NEGATIVE (NEGATIVE); URINE COLOR YELLOW; URINE GLUCOSE (UA) NEGATIVE (NEGATIVE); URINE KETONE NEGATIVE (NEGATIVE)
[2024-09-06 23:19] LABS: URINE LEUK ESTERASE LARGE (NEGATIVE); URINE NITRITE NEGATIVE (NEGATIVE); URINE UROBILINOGEN 0.2 mg/dL (0.2-1.0)
[2024-09-06 23:21] LABS: URINE PROTEIN 30 (NEGATIVE)
[2024-09-07] MEDS: SODIUM CHLORIDE 0.9% 500 ML INFUS.BAG IV ONE ×2 (00:37→02:25)
[2024-09-07] MEDS ORDERED: PIPERACILLIN/TAZOB 2.25 GM 2.25 GM/50 ML BAG IVPB ONE (01:41)
[2024-09-07] MEDS: PIPERACILLIN/TAZOB 2.25 GM 2.25 GM in DEXTROSE 5%-WATER - 50 ML IVPB ONE (01:43)
[2024-09-07 01:58] VITALS: TEMP 98.2
[2024-09-07 02:31] VITALS: BP 80/42; PULSE 106; RESP 16
== END 2024-09-07 02:46 | disposition short-term general hospital (02) ==
LOC: JER 18:16
DX: A41.9 Sepsis, unspecified organism (principal); N17.9 Acute kidney failure, unspecified; R00.0 Tachycardia, unspecified; I95.9 Hypotension, unspecified; Z94.0 Kidney transplant status; Z20.822 Contact with and (suspected) exposure to COVID-19
CPT/HCPCS: 0241U-QW; 36415; 71045-TC-FY; 80053; 81003; 82803; 83605; 83735; 83880; 84100; 84484; 85025; 85610; 85730; 86850; 86900; 86901; 87040; 87086; 87186; 99285-25

== ENCOUNTER 2024-10-15 02:21 | Inpatient (IN) | payer OTHER ==
[2024-10-15 02:37] VITALS: BMI 20.5
[2024-10-15] MEDS: LACTATED RINGERS SOLUTION 1000 ML INFUS.BAG IV ONE ×2 (03:00→05:20)
[2024-10-15] MEDS: PIPERACILLIN/TAZOB 4.5 GM 4.5 GM in DEXTROSE 5%-WATER 100 ML IVPB ONE (03:11)
[2024-10-15 03:19] LABS: BASO % 0.1 % (0-2.0); EOS % 0.7 % (0-4.5); HEMATOCRIT 25.6 % (35.4-49); HEMOGLOBIN 7.7 GM/dL (11.7-16.9); LYMPH % 25.2 % (8-40); MCHC 30.2 g/dl (32.0-35.9); MEAN CELL VOLUME 102.7 fl (80-96); MEAN PLT VOLUME 8.8 fl (7.5-11.1); MONO % 5.3 % (3.8-10.2); NEUT % 68.7 % (42.8-82.8); PLATELET COUNT 60 10^3/uL (134-434); RBC 2.49 M/mm3 (4.00-5.60); RDW 18.9 % (11.9-15.9); WHITE BLOOD COUNT 7.4 K/mm3 (4.0-10.0)
[2024-10-15 03:38] LABS: ACTIVATED PTT 36.5 SECONDS (25.2-36.5)
[2024-10-15 03:50] LABS: CHLORIDE 118 mmol/L (98-107); POTASSIUM 5.3 mmol/L (3.5-5.1); SODIUM 140 mmol/L (136-145)
[2024-10-15 03:52] LABS: CALCIUM 8.1 mg/dL (8.5-10.1)
[2024-10-15 03:53] LABS: ALBUMIN 1.9 g/dl (3.4-5.0); ANION GAP 19 mmol/L (4-13); BLOOD UREA NITROGEN 101.5 mg/dL (7-18); CO2 3 mmol/L (21-32); GLUCOSE,RANDOM 60 mg/dL (74-106)
[2024-10-15 03:56] LABS: SGOT/AST 21 U/L (15-37); SGPT/ALT 29 U/L (13-61)
[2024-10-15 03:57] LABS: BILIRUBIN,TOTAL 0.3 mg/dL (0.2-1); TOT PROT 5.1 g/dl (6.4-8.2)
[2024-10-15 04:00] LABS: ALK PHOS 129 U/L (45-117); CREATININE 11.3 mg/dL (0.55-1.3)
[2024-10-15 04:19] LABS: INR 1.16 (0.83-1.09); PROTHROMBIN TIME (PATIENT) 12.6 SEC (9.7-13.0)
[2024-10-15] MEDS: CEFTAZIDIME/AVIBACTAM 1.25 GM in DEXTROSE 5%-WATER - 100 ML IVPB ONE (04:45)
[2024-10-15] MEDS ORDERED: NOREPINEPHRINE BITARTRATE 4 MG/4 ML ML IV ONE ×2 (06:00→10:52)
[2024-10-15] MEDS: NOREPINEPHRINE BITARTRATE 4,000 MCG in DEXTROSE 5%-WATER - 496 ML IV SCH (06:00)
[2024-10-15 07:09] LABS: VENOUS BASE EXCESS -26.5 mmol/L (-2-2); VENOUS O2 SATURATION 94.7 % (70-80); VENOUS PCO2 < 16.7 mmHg (38-52)
[2024-10-15 07:11] LABS: VENOUS PH 6.996 (7.310-7.410)
[2024-10-15 07:20] LABS: CHLORIDE 114 mmol/L (98-107); SODIUM 138 mmol/L (136-145)
[2024-10-15 07:21] LABS: ANION GAP 20 mmol/L (4-13); BLOOD UREA NITROGEN 91.6 mg/dL (7-18); CALCIUM 7.8 mg/dL (8.5-10.1); CO2 4 mmol/L (21-32)
[2024-10-15 07:22] LABS: GLUCOSE,RANDOM 179 mg/dL (74-106)
[2024-10-15 07:44] LABS: CREATININE 10.2 mg/dL (0.55-1.3)
[2024-10-15 07:53] LABS: VENOUS BASE EXCESS -27.1 mmol/L (-2-2); VENOUS O2 SATURATION 87.5 % (70-80)
[2024-10-15] MEDS ORDERED: SODIUM BICARBONATE 8.4% 50 MEQ/50 ML DISP.SYRIN ONE ×3 (07:55→21:07)
[2024-10-15 07:57] LABS: VENOUS PH 6.946 (7.310-7.410)
[2024-10-15 07:58] LABS: VENOUS PCO2 < 16.7 mmHg (38-52)
[2024-10-15] MEDS: SODIUM BICARBONATE 8.4% 50 MEQ/50 ML DISP.SYRIN IVPUSH ONE ×2 (08:00→08:05)
[2024-10-15] MEDS ORDERED: CEFTAZIDIME/AVIBACTAM 0.94 GM in DEXTROSE 5%-WATER - 250 ML IVPB SCH (08:00)
[2024-10-15] MEDS ORDERED: RAPID SEQUENCE INTUBATION KIT NR ONE (08:08)
[2024-10-15] MEDS ORDERED: ROCURONIUM BROMIDE 50 MG/5 ML SYRINGE ONE (08:09)
[2024-10-15] MEDS ORDERED: PROPOFOL 1,000,000 MCG/100 ML VIAL ONE (08:15)
[2024-10-15] MEDS: SODIUM CHLORIDE 1,000 ML IV SCH (08:20)
[2024-10-15] MEDS: ROCURONIUM BROMIDE 50 MG/5 ML VIAL IV ONE (08:24)
[2024-10-15] MEDS: ETOMIDATE 40 MG/20 ML VIAL IVPUSH ONE (08:24)
[2024-10-15] MEDS: PROPOFOL 1,000,000 MCG/100 ML VIAL IVPB SCH (08:39)
[2024-10-15] MEDS: SODIUM BICARBONATE 8.4% - 150 MEQ in DEXTROSE 5%-WATER - 950 ML IVPB SCH (10:30)
[2024-10-15] MEDS ORDERED: FENTANYL NS IVPB 500 MCG/100 ML BAG IVPB ONE (10:52)
[2024-10-15 11:15] LABS: ARTERIAL BLD GAS O2 SATURATION 95.9 % (95-98); ARTERIAL BLOOD GAS PO2 126.5 mmHg (80-100)
[2024-10-15 11:22] LABS: ALLENS TEST POSITIVE; ARTERIAL BLOOD GAS pH 6.914 (7.350-7.450)
[2024-10-15 11:23] LABS: VENT MODE V-AC; VENT RATE 32
[2024-10-15] MEDS: FENTANYL NS IVPB 500 MCG/100 ML BAG IVPB SCH (11:25)
[2024-10-15] MEDS ORDERED: SODIUM CHLORIDE 250 ML IV PRN (11:42)
[2024-10-15 12:14] LABS: CHLORIDE 115 mmol/L (98-107); SODIUM 141 mmol/L (136-145)
[2024-10-15 12:15] LABS: CALCIUM 7.5 mg/dL (8.5-10.1)
[2024-10-15 12:16] LABS: ANION GAP 21 mmol/L (4-13); BLOOD UREA NITROGEN 95.6 mg/dL (7-18); CO2 5 mmol/L (21-32); GLUCOSE,RANDOM 186 mg/dL (74-106)
[2024-10-15 12:31] LABS: CREATININE 10.4 mg/dL (0.55-1.3)
[2024-10-15] MEDS: SODIUM BICARBONATE 8.4% 50 MEQ/50 ML DISP.SYRIN IVPUSH SCH (12:55)
[2024-10-15] MEDS: NOREPINEPHRINE 0.9 % NACL 8 MG/250 ML BAG IVPB SCH (14:30)
[2024-10-15] MEDS: VASopressin 40 UNITS/100 ML BAG IV SCH (15:30)
[2024-10-15] MEDS: INSULIN ASPART SLIDING SCALE (NOVOLOG) 1 VIAL SQ SCH (17:50)
[2024-10-15 19:32] LABS: ARTERIAL BLD GAS O2 SATURATION 99.2 % (95-98); ARTERIAL BLOOD GAS BASE EXCESS -16.6 mmol/L (-2-2); ARTERIAL BLOOD GAS PCO2 < 16.70 mmHg (35-45); ARTERIAL BLOOD GAS PO2 180.5 mmHg (80-100); ARTERIAL BLOOD GAS pH 7.304 (7.350-7.450)
[2024-10-15 19:34] LABS: ALLENS TEST POSITIVE
[2024-10-15 19:35] LABS: PT'S TEMP 93.8; VENT MODE A/C; VENT RATE 34
[2024-10-15 20:33] LABS: POTASSIUM 3.4 mmol/L (3.5-5.1)
[2024-10-15 20:34] LABS: CALCIUM 7.6 mg/dL (8.5-10.1)
[2024-10-15 20:35] LABS: MAGNESIUM 1.8 mg/dL (1.8-2.4)
[2024-10-15 20:37] LABS: PHOSPHOROUS 3.3 mg/dL (2.5-4.9)
[2024-10-15 20:38] LABS: CREATININE 5.1 mg/dL (0.55-1.3)
[2024-10-15 20:39] LABS: TOT PROT 5.1 g/dl (6.4-8.2)
[2024-10-15 20:43] LABS: BLOOD UREA NITROGEN 42.8 mg/dL (7-18)
[2024-10-15 20:45] LABS: BILIRUBIN,TOTAL 0.5 mg/dL (0.2-1)
[2024-10-15] MEDS: ROSUVASTATIN CA 5 MG TABLET PO SCH (21:03)
[2024-10-15] MEDS: TAMSULOSIN HCL 0.4 MG CAP PO SCH (21:03)
[2024-10-15] MEDS: CHLORHEXIDINE GLUCONATE 4% CLEANSER FOR DECOLONIZATION TP SCH (21:03)
[2024-10-15] MEDS: TACROLIMUS ANHYDROUS 2 MG, TACROLIMUS ANHYDROUS 0.5 MG PO SCH (21:04)
[2024-10-15] MEDS: SILVER SULFADIAZINE 1% TOP CREAM 50 GM JAR TP SCH (21:04)
[2024-10-15 21:11] LABS: HEMATOCRIT 23.7 % (35.4-49); HEMOGLOBIN 7.5 GM/dL (11.7-16.9); MCHC 31.6 g/dl (32.0-35.9); MEAN CELL VOLUME 95.2 fl (80-96); MEAN PLT VOLUME 7.6 fl (7.5-11.1); PLATELET COUNT 72 10^3/uL (134-434); RBC 2.49 M/mm3 (4.00-5.60); RDW 17.8 % (11.9-15.9); WHITE BLOOD COUNT 10.4 K/mm3 (4.0-10.0)
[2024-10-15] MEDS: HEPARIN NA (PORCINE) 5,000 UNITS/ML 1ML VIAL SQ SCH (21:12)
[2024-10-15] MEDS: HYDROCORTISONE SOD SUCCINATE 100 MG/2 ML VIAL IVPUSH ONE (21:12)
[2024-10-15] MEDS: MUPIROCIN 2% TOPICAL OINTMENT FOR DECOLONIZATION NS SCH (21:13)
[2024-10-15 21:32] LABS: HEMATOCRIT 25.4 % (35.4-49); HEMOGLOBIN 8.3 GM/dL (11.7-16.9); MCH 30.3 pg (25.7-33.7); MCHC 32.7 g/dl (32.0-35.9); MEAN PLT VOLUME 8.6 fl (7.5-11.1); PLATELET COUNT 89 10^3/uL (134-434); RBC 2.74 M/mm3 (4.00-5.60); RDW 17.1 % (11.9-15.9); WHITE BLOOD COUNT 9.8 K/mm3 (4.0-10.0)
[2024-10-15 21:34] LABS: MEAN CELL VOLUME 92.7 fl (80-96)
[2024-10-15] MEDS ORDERED: TACROLIMUS ANHYDROUS 5 MG CAPSULE PO SCH (22:00)
[2024-10-15] MEDS: CASPOFUNGIN ACETATE 70 MG in SODIUM CHLORIDE 250 ML IVPB ONE (22:37)
[2024-10-15 23:17] LABS: ANISOCYTOSIS 1+; MACROCYTOSIS 1+; TEAR DROP CELLS 1+
[2024-10-16 04:44] VITALS: BP 146/75; PULSE 95; RESP 28; TEMP 97.9
[2024-10-16] MEDS: SODIUM BICARBONATE 8.4% 50 MEQ/50 ML DISP.SYRIN IVPUSH ONE (04:44)
[2024-10-16] MEDS ORDERED: predniSONE 5 MG TABLET (UD) PO SCH (10:00)
[2024-10-16] MEDS ORDERED: TENOFOVIR ALAFENAMIDE FUMARATE 25 MG PO SCH (10:00)
[2024-10-16] MEDS ORDERED: NIFEdipine E.R. 30 MG TABLET PO SCH (10:00)
[2024-10-16] MEDS ORDERED: THIAMINE 100 MG TABLET PO SCH (10:00)
[2024-10-16] MEDS ORDERED: CEFTAZIDIME/AVIBACTAM 0.94 GM in DEXTROSE 5%-WATER - 250 ML IVPB SCH (10:00)
[2024-10-16] MEDS ORDERED: PANTOPRAZOLE 40 MG TABLET PO SCH (10:00)
[2024-10-17] MEDS ORDERED: CEFTAZIDIME/AVIBACTAM 0.94 GM in DEXTROSE 5%-WATER - 250 ML IVPB SCH ×2 (05:00→08:00)
== END 2024-10-16 05:16 | disposition short-term general hospital (02) | DRG 871 ==
LOC: JER 02:21 → JERBED 11:36 → JICU 14:08
PROVIDERS: ADMIT Internal Medicine Pulmonary Disease; ATTEND Internal Medicine Pulmonary Disease
PROC: 06HN33Z Insertion of Infusion Device into Left Femoral Vein, Percutaneous Approach (ICD-10-PCS; principal; 2024-10-15)
PROC: 0BH17EZ Insertion of Endotracheal Airway into Trachea, Via Natural or Artificial Opening (ICD-10-PCS; 2024-10-15)
PROC: 5A1945Z Respiratory Ventilation, 24-96 Consecutive Hours (ICD-10-PCS; 2024-10-15)
PROC: 5A1D70Z Performance of Urinary Filtration, Intermittent, Less than 6 Hours Per Day (ICD-10-PCS; 2024-10-15)
DX: A41.89 Other specified sepsis (principal); G93.41 Metabolic encephalopathy; I21.4 Non-ST elevation (NSTEMI) myocardial infarction; R65.21 Severe sepsis with septic shock; J96.01 Acute respiratory failure with hypoxia; J18.9 Pneumonia, unspecified organism; N18.6 End stage renal disease; B18.1 Chronic viral hepatitis B without delta-agent; E87.20 Acidosis, unspecified; N17.9 Acute kidney failure, unspecified; I12.0 Hypertensive chronic kidney disease with stage 5 chronic kidney disease or end stage renal disease; Z94.0 Kidney transplant status; N31.9 Neuromuscular dysfunction of bladder, unspecified; E11.22 Type 2 diabetes mellitus with diabetic chronic kidney disease; Z99.2 Dependence on renal dialysis; E78.00 Pure hypercholesterolemia, unspecified; R68.0 Hypothermia, not associated with low environmental temperature; N40.0 Benign prostatic hyperplasia without lower urinary tract symptoms; L89.150 Pressure ulcer of sacral region, unstageable; D64.9 Anemia, unspecified; L89.629 Pressure ulcer of left heel, unspecified stage; L89.619 Pressure ulcer of right heel, unspecified stage; E11.42 Type 2 diabetes mellitus with diabetic polyneuropathy; F32.A Depression, unspecified; H91.93 Unspecified hearing loss, bilateral; Z87.11 Personal history of peptic ulcer disease; Z88.1 Allergy status to other antibiotic agents
CPT/HCPCS: 0241U-QW; 36415; 36600; 71045-TC-FY; 80048; 80053; 82803; 82962; 83605; 83735; 84100; 84484; 85025; 85027; 85610; 85730; 86704; 86803; 86850; 86900; 86901; 87040; 87070; 87086; 87186; 87205; 87340; 87481; 93005; 93010; 94002; 99285-25; J0878; J1644; J3490